=== PATIENT | female | born 1980 | race Hispanic/Latino ===

== ENCOUNTER 2017-07-05 06:59 | Inpatient (IN) | payer BC ==
[~2017-07-05 06:59] MED LIST: ACETAMINOPHEN 500 MG TAB PO PRN; DIPHENHYDRAMINE 50 MG/ML VIAL IV PRN; METOCLOPRAMIDE 10 MG/2mL INJ IV PRN; ONDANSETRON 4 MG/2 ML VIAL IV PRN; OXYTOCIN/LR 20 UNIT/1,000 ML BAG IV SCH; Ringers Lactate 1,000 ML IV PRN; Ringers Lactate 1,000 ML IV SCH
--- OUTSIDE RECORDS SUMMARY | 2017-07-05 07:01 | XMS REPORT ---
:1980 Author Organization eClinicalWorks Care Team Providers Name Role Phone Cristina Restrepo Provider Role Unavailable Allergies No Known Allergies Problems Problem Type Condition Code Onset Dates Condition Status Assessment Elderly multigravida in third O09.523 Active trimester Assessment UTI symptoms R39.9 Active Problem Elderly multigravida in third O09.523 Active trimester Medications Medication Code Code Instructions Start End Date Status Dosage System Date Macrobid [facility] [id number] 100 MG Orally May 18, May 25, Active 1 capsule every 12 hrs 2017 2017 with food Ferralet 90 [facility] [id number] 90-1 MG Orally April 21, Active 1 tablet Once a day 2018 Results No Known Results Summary Purpose eClinicalWorks Submission
--- OUTSIDE RECORDS SUMMARY | 2017-07-05 07:01 | XMS REPORT ---
:1980 Author Organization eClinicalWorks Care Team Providers Name Role Phone Cristina Restrepo Provider Role Unavailable Allergies No Known Allergies Problems Problem Type Condition Code Onset Dates Condition Status Problem Size of fetus inconsistent with O26.843 Active dates in third trimester Problem Elderly multigravida in third O09.523 Active trimester Problem Excessive growth affecting O36.63X0 Active management of in third trimester, single or unspecified fetus Assessment Excessive growth affecting O36.63X0 Active management of in third trimester, single or unspecified fetus Assessment Elderly multigravida in third O09.523 Active trimester Assessment Size of fetus inconsistent with O26.843 Active dates in third trimester Medications Medication Code System Code Instructions Start End Date Status Dosage Date Ferralet 90 [facility] [id number] 90-1 MG Orally April 21, Active 1 tablet Once a day 2017 Results No Known Results Summary Purpose eClinicalWorks Submission
--- OUTSIDE RECORDS SUMMARY | 2017-07-05 07:01 | XMS REPORT ---
:1980 Author Organization eClinicalWorks Care Team Providers Name Role Phone Cristina Restrepo Provider Role Unavailable Allergies No Known Allergies Problems Problem Type Condition Code Onset Dates Condition Status Assessment Elderly multigravida in third O09.523 Active trimester Problem Elderly multigravida in third O09.523 Active trimester Medications Medication Code System Code Instructions Start End Date Status Dosage Date Ferralet 90 [facility] [id number] 90-1 MG Orally April 21, Active 1 tablet Once a day 2018 Results No Known Results Immunizations Vaccine Administration Date TDAP > 7 Years-Adacel April 27, 2017 Summary Purpose eClinicalWorks Submission
--- OUTSIDE RECORDS SUMMARY | 2017-07-05 07:01 | XMS REPORT ---
:1980 Author Organization eClinicalWorks Care Team Providers Name Role Phone Cristina Restrepo Provider Role Unavailable Allergies No Known Allergies Problems Problem Type Condition Code Onset Dates Condition Status Problem Elderly multigravida in third O09.523 Active trimester Assessment Elderly multigravida in third O09.523 Active trimester Problem Size of fetus inconsistent with O26.843 Active dates in third trimester Medications Medication Code System Code Instructions Start End Date Status Dosage Date Ferralet 90 [facility] [id number] 90-1 MG Orally April 21, Active 1 tablet Once a day 2017 Results No Known Results Summary Purpose eClinicalWorks Submission
--- OUTSIDE RECORDS SUMMARY | 2017-07-05 07:01 | XMS REPORT ---
[...] multigravida in third O09.523 Active trimester Assessment Excessive growth affecting O36.63X0 Active management of in third trimester, single or unspecified fetus Medications Medication Code System Code Instructions Start End Date Status Dosage Date Ferralet 90 [facility] [id number] 90-1 MG Orally April 21, Active 1 tablet Once a day 2017 Results No Known Results Summary Purpose eClinicalWorks Submission
--- OUTSIDE RECORDS SUMMARY | 2017-07-05 07:01 | XMS REPORT ---
[...] End Date Status Dosage Date Ferralet 90 [facility] [id number] 90-1 MG Orally April 21, Active 1 tablet Once a day 2017 Results No Known Results Summary Purpose eClinicalWorks Submission
--- OUTSIDE RECORDS SUMMARY | 2017-07-05 07:01 | XMS REPORT ---
:1980 Author Organization eClinicalWorks Care Team Providers Name Role Phone Cristina Restrepo Provider Role Unavailable Allergies No Known Allergies Problems Problem Type Condition Code Onset Dates Condition Status Problem Elderly multigravida in third O09.523 Active trimester Assessment Elderly multigravida in third O09.523 Active trimester Problem Size of fetus inconsistent with O26.843 Active dates in third trimester Assessment Size of fetus inconsistent with O26.843 Active dates in third trimester Medications Medication Code System Code Instructions Start End Date Status Dosage Date Ferralet [address] [facility] [id number] 90-1 MG Orally April 21, Active 1 tablet Once a day 2018 Results No Known Results Summary Purpose eClinicalWorks Submission
[2017-07-05 07:26] VITALS: BMI 38.3
[2017-07-05 07:35] LABS: RPR Titer ND
[2017-07-05 07:41] LABS: Absolute Lymphocytes (CBC) 2.1 K/uL (0.7-4.9); Absolute Monocytes 0.6 K/uL (0.1-1.3); Absolute Neutrophil 9.1 K/uL (1.8-8.0); Basophils % 0.3 % (0-1.3); Hematocrit 35.6 % (36.0-45.0); Lymphocytes % 17.9 % (15.3-44.8); MCH 28.9 pg (27.0-35.0); MCV 89.3 fL (80-100); RBC Red Blood Cell Count 3.99 M/uL (3.86-4.86); Urine Appearance CLOUDY; Urine Bilirubin NEGATIVE (NEG); Urine Blood 1+ (NEG); Urine Color YELLOW; Urine Glucose NEGATIVE (NEG); Urine Protein 1+ (NEG); Urine Urobilinogen 0.2 mg/dL (0.2-1.0); Urine pH 6.5 (5.0-7.0)
[2017-07-05 07:48] LABS: Urine Microscopic Reflex ORDER UMIC
[2017-07-05 07:56] LABS: Urine Bacteria 20-50 /HPF (<20); Urine Culture Reflex Order NOT NEEDED; Urine RBC <5 /HPF (NONE SEEN)
[2017-07-05] MEDS ORDERED: METHYLERGONOVINE 0.2MG/ML AMP IM ONE (09:22)
--- NOTE | 2017-07-05 09:22 | P.HP ---
Certification for Inpatient Patient admitted to: Inpatient With expected LOS: >2 Midnights Patient will require the following post-hospital care: None Practitioner: I am a practitioner with admitting privileges, knowledge of patient current condition, hospital course, and medical plan of care. Services: Services provided to patient in accordance with Admission requirements found in Title 42 Section 412.3 of the Code of Federal Regulations Patient History Date of Service: 07/05/17 Reason for admission: Elective induction of labor History of Present Illness: A 36-year-old at 39 weeks and 2 days who is being admitted for an elective induction of labor. Patient started care with me at approximately 9 weeks of gestation and has has had adequate follow-up. complicated by advanced maternal age, previous history of GDM with negative screening this , grand multiparity, mild anemia, and accelerated growth. Most recent ultrasound placed fetus at 94th percentile for growth at 37 weeks. Largest baby she delivered weighed 7 lb and 15 oz at term. screening was done and panorama results were low risk female fetus. MSAFP was negative. She denies OB complaints on admission. JENNIFER: 07/10/2017. GBS negative. Allergies No Known Allergies Allergy (Unverified 12/09/16 02:29) Home Medications: Pn Vits.w-O Ca #8, Iron,FA [Trifera Ob Tablet] 1 tab PO DAILY 07/05/17 - Past Medical/Surgical History Has patient received pneumonia vaccine in the past: No Diabetic: Yes -: H/o GDM -: ANGY (2007) -: H/o episiotomy - Social History Smoking Status: Never smoker Alcohol use: No CD- Drugs: No Caffeine use: Yes Place of Residence: Home Review of Systems 10-point ROS is otherwise unremarkable Physical Examination - Vital Signs Temperature: 97.5 F Blood Pressure: 142/77 Pulse: 71 Respirations: 18 - Physical Exam General: Alert, In no apparent distress, Oriented x3 HEENT: Atraumatic, Normocephalic Respiratory: Other (Normal effort) Cardiovascular: Normal pulses Musculoskeletal: Swelling (Trace pedal edema) Integumentary: No rashes, No breakdown Neurological: Normal speech, Normal strength at 5/5 x4 extr - Studies Laboratory Data (last 24 hrs) 07/05/17 07:00: WBC Cancelled, Hgb Cancelled, Hct Cancelled, Plt Count Cancelled 07/05/17 07:00: WBC 12.0 H, Hgb 11.5 L, Hct 35.6 L, Plt Count 225 Female Exam - Female Pelvic Cervix: Dilation (3), Effacement (50), station (-1), Other (soft, anterior ) Uterus: Non-tender, Soft, Gravid - Obstetrics heart rate tracing: Category 1 (periods of minimal variability noted) Contractions: Frequency (q 3-6 min) Amniotic membrane: Intact Assessment and Plan - Problems (Diagnosis) (1) Elective induction of labor planned Current Visit: Yes Status: Acute Plan: Admitted for induction and Pitocin has been started. Will keep on continuous monitoring, noted periods of minimal variability. Patient has been repositioned , IV fluid bolus is going, O2 via non Re-breather started. Will continue to monitor. If no improvement, will d/c Pitocin and perform AROM. (2) LGA (large for gestational age) fetus affecting mother, antepartum Current Visit: Yes Status: Acute Plan: Recent ultrasound done confirms accelerated growth above the 90th percentile. Possible risk of the labor/shoulder dystocia reviewed. Will have the utero-tonics available at bedside due to associated risk of possible hemorrhage. Delivery nurse aware plan Qualifiers: Fetus number: single or unspecified fetus Qualified Code(s): O36.60X0 - Maternal care for excessive growth, unspecified trimester, not applicable or unspecified - Advance Directives Does patient have a Living Will: No Does patient have a Durable POA for Healthcare: No
[2017-07-05] MEDS ORDERED: miSOPROStol 100 MCG TAB PR ONE (09:25)
[2017-07-05] MEDS ORDERED: FENTANYL/BUPIVACAINE/NS/PF 200 MCG/100 ML BAG EP PRN (11:11)
[2017-07-05] MEDS ORDERED: BUPIVACAINE 0.25% PF 10 ML VIAL IV ONE (11:14)
[2017-07-05] MEDS ORDERED: FENTANYL CITR 100 MCG/2 ML IV ONE (11:15)
[2017-07-05] MEDS ORDERED: BUPIVACAINE 0.25% PF 10 ML VIAL ONE (12:10)
--- NOTE | 2017-07-05 12:18 | P.PN ---
Date of Service: 07/05/17 Pt is doing well, but has requested epidural due to increased pain with contractions. Anesthesia aware. Tracing shows periods of minimal variability. Discussed AROM, patient agreed. Procedure done without incident. Copious amount of clear fluid noted. : 3-4/50/-2, soft, anterior. VSS Fetus responds to scalp stimulation. Tracing with moderate variability now, spontaneous accelerations noted. Decreased pitocin to half. Will d/c if no further improvement in variability.
[2017-07-05] MEDS ORDERED: ROPIVACAINE HCL 100 ML IV ONE ×2 (12:36→20:40)
[2017-07-05] MEDS ORDERED: LIDOCAINE 2% INJ, 20 mL 0 ML ONE (20:09)
[2017-07-05 22:36] LABS: RPR (Rapid Plasma Reagin) NON-REACT (NON-REACT)
[2017-07-05] MEDS ORDERED: Ringers Lactate 1,000 ML IV PRN (22:38)
[2017-07-05] MEDS ORDERED: NA CIT/CITRIC AC 30 ML ORAL UDC PO ONE ×2 (22:38→22:43)
[2017-07-05] MEDS ORDERED: CEFAZOLIN 2 GM in NA CHLORIDE 0.9% 100 ML IVPB ONE (22:38)
[2017-07-05] MEDS ORDERED: METOCLOPRAMIDE 10 MG/2mL INJ ONE (22:40)
[2017-07-05] MEDS ORDERED: CEFAZOLIN/SWI 2gm 2 GM/20 ML SYR ONE (22:41)
--- NOTE | 2017-07-05 22:47 | P.PN ---
Date of Service: 07/05/17 RN called to report patient has been 9-10 for almost 2 hours. FHR is cat II with early decels noted. Mild range BPs likely secondary to pain. She is now complete but station is high and ballotable. She is c/o pain as her epidural hasn't been providing relief in the last hour as well. She has been re -dosed without adequate response. Discussed trial push but patient initially refused due to pain. After a few contractions, she agreed. There was no descent noted with attempt. She is requesting a CD due to pain. Based on duration of rupture, no further descent, and no response to trial push, will proceed with 1' LTCS. Caput noted. I suspect CPD. OR team notified. Orders placed. Proceed to OR when ready.
[2017-07-05] MEDS ORDERED: METOCLOPRAMIDE 10 MG/2mL INJ IV SCH (23:00)
[2017-07-05] MEDS ORDERED: CEFAZOLIN 2 GM in NA CHLORIDE 0.9% 100 ML IVPB SCH (23:00)
[2017-07-05] MEDS ORDERED: MORPHINE SULFATE/PF 1 MG/ML (10 ML AMP) ONE (23:26)
[2017-07-06] MEDS ORDERED: OXYTOCIN 10 UNIT/ML ML IV ONE
[2017-07-06] MEDS ORDERED: FENTANYL CITR 250 MCG/5 ML ONE (00:43)
[2017-07-06] MEDS ORDERED: HYDROMORPHONE HCL 1 MG/ML INJ IV PRN (00:54)
[2017-07-06] MEDS ORDERED: MORPHINE 4 MG/ML SYR IV PRN (00:54)
--- NOTE | 2017-07-06 00:58 | P.OP ---
It Program Auditor: Hector Griffiths Preoperative diagnosis: Failure to descend, suspected macrosomia Postoperative diagnosis: Same Primary procedure: 1'LTCS via Pfannenstiel Anesthesia: Spinal Estimated blood loss: 600 cc Findings: See operative report Operative Technique: Intra-operative findings: The uterus was normal. Both fallopian tubes and ovaries were found to be normal.The was in an LANE position. The infant was female and weighed 9 # 7 oz. The 's Apgars were 5 at 1 min. and 8 at 5 min.. Procedure described: The patient was taken to the operating room within IV running with antibiotics infusing where she was placed in a dorsal supine position with a slight leftward tilt. She had clipping of the suprapubic hair and was prepped and draped in the normal sterile fashion from the xiphoid sternum to the midthighs including the vulva and vagina. A Rodarte catheter was placed in the bladder and connected to dependent drainage. PAS stockings were in place and activated. A timeout was done per our usual protocol. A Pfannenstielincision was made about 1 cm above the symphysis pubis and carried out through the subcutaneous tissue with electrocautery. The fascia was nicked in the midline and the fascial incision was extended laterally with Howell scissors. The superior aspect of the fascial incision was tented up and bluntly and sharply dissected off the rectus muscles below. In a similar fashion , the inferior aspect of the fascial incision was tented up and bluntly and sharply dissected off the rectus muscles below. The rectus muscles were in the midline, the peritoneum was identified and entered sharply between two hemostats using Metzenbaum scissors. The peritoneal incision was extended superiorly and inferiorly with good visualization of intraperitoneal organs and the bladder. The bladder blade was placed, the bladder flap was developed and the bladder blade was replaced. A transverse curvilinear incision was made in the lower uterine segment. The incision was extended laterally with blunt digital dissection. The surgeon's hand was placed into the incision, the 's head was delivered, followed by the torso. The mouth and nose were suctioned with and suction bulb. The umbilical cord was clamped and cut and the infant was handed off to the waiting care attendants. Cord blood was obtained. The uterus was massaged and the placenta was expressed. The uterus was exteriorized and cleared of all clots and debris. The bladder blade was replaced, the edges of the uterine incision where grasped with ring forceps and the incision was closed using 0 Monocryl suture in a running un- locking fashion and closed in 2 layers. The incision was inspected and found to be hemostatic. The bladder peritoneum was then closed with 3-0 Vicryl suture in a running fashion. The pelvic peritoneum was not irrigated, but was cleared of all clots and debris. The uterus was replaced into the peritoneal cavity. The medial edges of the rectus muscles were plicated in the midline using 2-0 Vicryl suture in an interrupted fashion. The rectus muscles were inspected and found to be hemostatic. The fascia was then closed with 0-Vicryl suture in a running fashion. The subcutaneous tissues were copiously lavaged with warm normal saline. Hemostasis was noted. The skin was closed with a subcuticular stitch of 3-0 Monocryl suture. The incision was cleansed and dermabond was applied. Sponge, needle, instrument counts were correct x 2. There were no complications and patient tolerated the procedure well. She was taken to recovery in good condition and allowed to lucero with infant Complications: None Transferred to: Recovery Room Condition: Good
[2017-07-06] MEDS: KETOROLAC 30 MG/ML INJ IV SCH ×4 (01:15→19:20)
[2017-07-06] MEDS: METOCLOPRAMIDE 10 MG/2mL INJ IV SCH ×4 (01:15→19:20)
[2017-07-06] MEDS ORDERED: NA CHLORIDE 0.9% 1,000 ML IV SCH (02:00)
[2017-07-06 11:17] LABS: Absolute Lymphocytes (CBC) 1.5 K/uL (0.7-4.9); Absolute Monocytes 0.7 K/uL (0.1-1.3); Absolute Neutrophil 15.3 K/uL (1.8-8.0); Basophils % 0.1 % (0-1.3); Hematocrit 33.1 % (36.0-45.0); Lymphocytes % 8.6 % (15.3-44.8); MCH 28.6 pg (27.0-35.0); MCV 89.4 fL (80-100); MPV 9.6 fL (7.6-11.3)
[2017-07-06 12:13] LABS: Blood Morphology Comment NOT SEEN (NOT SEEN); Platelet Estimate ADEQ
[2017-07-06] MEDS ORDERED: NA CHLORIDE 0.9% 1,000 ML ONE ×2 (12:38→17:09)
[2017-07-06] MEDS ORDERED: DIPHENHYDRAMINE 25 MG TAB/CAP PO PRN (20:33)
[2017-07-07] MEDS: HYDROCODONE/APAP 5/325 MG TAB PO PRN ×4 (01:30→20:10)
[2017-07-07] MEDS: IBUPROFEN 400 MG TAB PO PRN ×3 (08:24→23:18)
--- NOTE | 2017-07-07 08:52 | P.DS ---
Admission Date: 07/05/17 Discharge Date: 07/08/17 Disposition: ROUTINE DISCHARGE Comment: Rounding with d/c summary Discharge Condition: GOOD Reason for Admission: Elective induction of labor - Problems (1) delivery delivered Onset Date: 07/06/17 Status: Acute Brief History of Present Illness: A 36-year-old at 39 weeks and 2 days who is being admitted for an elective induction of labor. Patient started care with me at approximately 9 weeks of gestation and has has had adequate follow-up. complicated by advanced maternal age, previous history of GDM with negative screening this , grand multiparity, mild anemia, and accelerated growth. Most recent ultrasound placed fetus at 94th percentile for growth at 37 weeks. Largest baby she delivered weighed 7 lb and 15 oz at term. screening was done and panorama results were low risk female fetus. MSAFP was negative. She denies OB complaints on admission. JENNIFER: 07/10/2017. GBS negative. Hospital Course: Pt was admitted for IOL which was done with pitocin and AROM. She made slow progress difficulty with pain control with epidural. She eventually dilated to 10 cm but station did not descend significantly. She was allowed to labor down more, and tried to push but was in pain and there was not much progress. Discussed concern for CPD and decision was made for delivery. Benefits /risks discussed. was done without incident and postop course was uncomplicated. Vital Signs/Physical Exam: Temp Pulse Resp BP Pulse Ox 98.9 F 81 18 122/59 L 07/07/17 07:25 07/07/17 07:25 07/07/17 07:25 07/07/17 07:25 General: Alert, In no apparent distress, Oriented x3 Respiratory: Clear to auscultation bilaterally Cardiovascular: Regular rate/rhythm, Normal S1 S2 Gastrointestinal: Normal bowel sounds, Soft and benign, Non-distended, No rebound, No guarding, Other (Incision: C/D/I, subQ closure with dermabond) Musculoskeletal: No swelling, No erythema, No tenderness Integumentary: No rashes, No breakdown Neurological: Normal speech, Normal strength at 5/5 x4 extr Laboratory Data at Discharge: WBC 17.5 K/uL (4.3-10.9) H D 07/06/17 10:47 Hgb 10.6 g/dL (12.0-15.0) L 07/06/17 10:47 Hct 33.1 % (36.0-45.0) L 07/06/17 10:47 Plt Count 193 K/uL (152-406) 07/06/17 10:47 Home Medications: Pn Vits.w-O Ca #8, Iron,FA [Trifera Ob Tablet] 1 tab PO DAILY 07/05/17 Hydrocodone 5/APAP 325 [[place] 5/325*] 1 tab PO Q4H PRN #24 tab 07/07/17 New Medications: Hydrocodone 5/APAP 325 [[place] 5/325*] 1 tab PO Q4H PRN #24 tab PRN Reason: Pain Moderate To Severe Patient Discharge Instructions: Follow up with physician in one week for incision check. Notify physician of fever or other sings of infection or heavy vaginal bleeding. Diet: Regular Activity: No lifting more than 10 lbs Followup: Cristina Restrepo MD [Family Provider] - (Follow up care with Dr. Restrepo next week.)
[2017-07-07] MEDS ORDERED: Tdap (Diph,Pertuss(Acell),Tet Vac) 0.5 ML SYR IMVAC ONE (10:32)
[2017-07-07] MEDS ORDERED: DOCUSATE NA/SENNA CONC 1 TAB PO PRN (12:32)
[2017-07-07] MEDS ORDERED: BISACODYL 10 MG RECTAL SUPP RECT PRN (12:32)
[2017-07-07 13:31] LABS: HBsAG Nonreactive (Nonreactive)
[2017-07-08] MEDS: HYDROCODONE/APAP 5/325 MG TAB PO PRN (05:20)
[2017-07-08 08:29] VITALS: BP 148/80; TEMP 97.6
--- NOTE | 2017-07-08 09:42 | P.PN ---
Subjective Date of Service: 07/07/17 Chief Complaint: Elective induction of labor Subjective: Tolerating diet, Ambulating, Improving (Denies N/V in the last day or so. She is much improved with anti-emetics.), Doing well Review of Systems 10-point ROS is otherwise unremarkable Physical Examination - Vital Signs Temperature: 97.6 F Blood Pressure: 148/80 Pulse: 65 Respirations: 18 - Physical Exam General: Alert, In no apparent distress, Oriented x3 Respiratory: Clear to auscultation bilaterally, Normal air movement Cardiovascular: Regular rate/rhythm, Normal S1 S2 Gastrointestinal: Hypoactive, Soft and benign, Non-distended, Other (Incision: C /D/I) Musculoskeletal: No swelling Integumentary: No rashes, No breakdown Neurological: Normal speech, Normal strength at 5/5 x4 extr Assessment And Plan - Current Problems (Diagnosis) (1) Elective induction of labor planned Onset Date: 07/06/17 Current Visit: Yes Status: Resolved (2) LGA (large for gestational age) fetus affecting mother, antepartum Onset Date: 07/06/17 Current Visit: Yes Status: Resolved Qualifiers: Fetus number: single or unspecified fetus Qualified Code(s): O36.60X0 - Maternal care for excessive growth, unspecified trimester, not applicable or unspecified (3) delivery delivered Onset Date: 07/06/17 Current Visit: Yes Status: Acute Plan: Pt is doing well on POD #1. She is tolerating intake slowly as nausea has improved. Meds transitioned to PO and may d/c IVF. H/H appropriate. Ambulation encouraged. Routine postop care planned.
== END 2017-07-08 09:30 | disposition home or self-care (01) | DRG 766 ==
LOC: 2ND-WC 06:59
PROVIDERS: ADMIT Obstetrics & Gynecology; ATTEND Obstetrics & Gynecology
PROC: 10907ZC Drainage of Amniotic Fluid, Therapeutic from Products of Conception, Via Natural or Artificial Opening (ICD-10-PCS; 2017-07-06)
PROC: 3E033VJ Introduction of Other Hormone into Peripheral Vein, Percutaneous Approach (ICD-10-PCS; 2017-07-06)
PROC: 10D00Z1 Extraction of Products of Conception, Low, Open Approach (ICD-10-PCS; principal; 2017-07-06 22:34)
DX: O36.63X0 Maternal care for excessive fetal growth, third trimester, not applicable or unspecified (principal); O64.8XX0 Obstructed labor due to other malposition and malpresentation, not applicable or unspecified; Z3A.39 39 weeks gestation of pregnancy; Z37.0 Single live birth
CPT/HCPCS: 36415; 81003; 81015; 85025; 86592; 86850; 86900; 86901; 87340; 88305; 88307; 90715; J0690; J1170; J2210; J2405; J2590; J2765; J2795; J3010; J7030

== ENCOUNTER 2017-07-27 21:04 | Emergency (ER) | payer BC ==
--- OUTSIDE RECORDS SUMMARY | 2017-07-27 21:06 | XMS REPORT ---
[...] Date Status Dosage Date Ferralet [address] [facility] [id number] 90-1 MG Orally April 21, Active 1 tablet Once a day 2018 Results No Known Results Immunizations Vaccine Administration Date TDAP > 7 Years-Adacel April 27, 2017 Summary Purpose eClinicalWorks Submission
--- OUTSIDE RECORDS SUMMARY | 2017-07-27 21:06 | XMS REPORT ---
[...] End Date Status Dosage System Date Macrobid [facility] [id number] 100 MG Orally May 18, May 25, Active 1 capsule every 12 hrs 2017 2017 with food Ferralet 90 [facility] [id number] 90-1 MG Orally April 21, Active 1 tablet Once a day 2018 Results No Known Results Summary Purpose eClinicalWorks Submission
--- OUTSIDE RECORDS SUMMARY | 2017-07-27 21:06 | XMS REPORT ---
[...] End Date Status Dosage Date Ferralet 90 [facility] [id number] 90-1 MG Orally April 21, Active 1 tablet Once a day 2018 Results No Known Results Summary Purpose eClinicalWorks Submission
--- OUTSIDE RECORDS SUMMARY | 2017-07-27 21:07 | XMS REPORT ---
:1980 Author Organization eClinicalWorks Care Team Providers Name Role Phone Cristina Restrepo Provider Role Unavailable Allergies, Adverse Reactions, Alerts Substance Reaction Event Type N.K.D.A. Info Not Available Non Drug Allergy Problems Problem Type Condition Code Onset Dates Condition Status Problem Excessive growth affecting O36.63X0 Active management of in third trimester, single or unspecified fetus Problem Size of fetus inconsistent with O26.843 Active dates in third trimester Problem H/O section Z98.891 Active Assessment Postop check Z09 Active Problem Elderly multigravida in third O09.523 Active trimester Assessment H/O section Z98.891 Active Medications Medication Code Code Instructions Start End Date Status Dosage System Date Ferralet 90 [facility] [id number] 90-1 MG Orally April 21, Active 1 tablet Once a day 2017 IBUPROFEN NDC 0 Active not defined Results No Known Results Summary Purpose eClinicalWorks Submission
--- OUTSIDE RECORDS SUMMARY | 2017-07-27 21:07 | XMS REPORT ---
[...] Date Status Dosage Date Ferralet 90 [facility] [id number] 90-1 MG Orally April 21, Active 1 tablet Once a day 2017 Results No Known Results Summary Purpose eClinicalWorks Submission
--- OUTSIDE RECORDS SUMMARY | 2017-07-27 21:07 | XMS REPORT ---
[...] 90 [facility] [id number] 90-1 MG Orally April 21, Active 1 tablet Once a day 2017 Results No Known Results Summary Purpose eClinicalWorks Submission
--- OUTSIDE RECORDS SUMMARY | 2017-07-27 21:07 | XMS REPORT ---
[...] End Date Status Dosage Date Ferralet [address] [facility] [id number] 90-1 MG Orally April 21, Active 1 tablet Once a day 2017 Results No Known Results Summary Purpose eClinicalWorks Submission
--- OUTSIDE RECORDS SUMMARY | 2017-07-27 21:07 | XMS REPORT ---
[...] Date Status Dosage Date Ferralet 90 [facility] [id number] 90-1 MG Orally April 21, Active 1 tablet Once a day 2017 Results No Known Results Summary Purpose eClinicalWorks Submission
--- NOTE | 2017-07-27 22:40 | EDPHYS ---
Physician Documentation [facility] Name: Bran Garner Age: 36 yrs Sex: Female : 1980 Arrival Date: 07/27/2017 Time: 21:05 Bed 25 Private MD: ED Physician Talat Toledo HPI: 07/27 22:35 This 36 yrs old Female presents to ER via Ambulatory with complaints of Rectal pm1 Pain. 22:35 The patient presents to the emergency department with pain in the rectal area. Onset: pm1 The symptoms/episode began/occurred yesterday. Context: the patient has a known history of hemorrhoids. Modifying factors: The symptoms are alleviated by nothing, The symptoms are aggravated by bowel movement, sitting position. Associate signs and symptoms: Pertinent negatives: abdominal pain, constipation, diarrhea, dysuria, fever, lower GI bleeding, vomiting. The patient has experienced similar episodes in the past, several times. The patient has not recently seen a physician. 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 - Social history:: Smoking status: Patient/guardian denies using tobacco. - Ebola Screening: : Patient denies travel to an Ebola-affected area in the 21 days before illness onset. ROS: 22:35 Constitutional: Negative for fever, chills, and weight loss, Eyes: Negative for injury, pm1 pain, redness, and discharge, ENT: Negative for injury, pain, and discharge, Neck: Negative for injury, pain, and swelling, Cardiovascular: Negative for chest pain, palpitations, and edema, Respiratory: Negative for shortness of breath, cough, wheezing, and pleuritic chest pain. 22:35 Back: Negative for injury and pain, : Negative for injury, bleeding, discharge, and swelling, MS/Extremity: Negative for injury and deformity, Skin: Negative for injury, rash, and discoloration, Neuro: Negative for headache, weakness, numbness, tingling, and seizure. 22:35 Abdomen/GI: Negative for abdominal pain, nausea, vomiting, and diarrhea, diarrhea, black/tarry stool, rectal pain, rectal bleeding. Exam: 22:35 Constitutional: This is a well developed, well nourished patient who is awake, alert, pm1 and in no acute distress. Head/Face: Normocephalic, atraumatic. Neck: Trachea midline, no thyromegaly or masses palpated, and no cervical lymphadenopathy. Supple, full range of motion without nuchal rigidity, or vertebral point tenderness. No Meningismus. Chest/axilla: Normal chest wall appearance and motion. Nontender with no deformity. No lesions are appreciated. Cardiovascular: Regular rate and rhythm with a normal S1 and S2. No gallops, murmurs, or rubs. Normal PMI, no JVD. No pulse deficits. Respiratory: Lungs have equal breath sounds bilaterally, clear to auscultation and percussion. No rales, rhonchi or wheezes noted. No increased work of breathing, no retractions or nasal flaring. 22:35 Back: No spinal tenderness. No costovertebral tenderness. Full range of motion. Skin: Warm, dry with normal turgor. Normal color with no rashes, no lesions, and no evidence of cellulitis. MS/ Extremity: Pulses equal, no cyanosis. Neurovascular intact. Full, normal range of motion. 22:35 Abdomen/GI: Inspection: abdomen appears normal, Bowel sounds: normal, Palpation: abdomen is soft and non-tender, Rectal exam: hemorrhoid(s), external, without bleeding, without inflammation, without thrombosis, without pain, [facility] tech. 22:35 Neuro: Orientation: is normal, Motor: is normal, moves all fours. Vital Signs: 21:10 BP 119 / 77; Pulse 76; Resp 18; Temp 98.1(TE); Pulse Ox 97% on R/A; Weight 73.[address] [facility] (R); Height 4 ft. 11 in. (149.86 cm); Pain 6/10; 22:55 BP 109 / 73; Pulse 71; Resp 17; Pulse Ox 100% on R/A; Pain 6/10; ed1 21:10 Body Mass Index 32.72 (73.48 kg, 149.86 cm) [facility] MDM: 21:[address] [facility] 22:38 Data reviewed: vital signs. Data interpreted: Pulse oximetry: on room air is 97 %. pm1 Interpretation: normal. Counseling: I had a detailed discussion with the patient and/or guardian regarding: the historical points, exam findings, and any diagnostic results supporting the discharge/admit diagnosis, the need for outpatient follow up, a colorectal specialist, a general surgeon, to return to the emergency department if symptoms worsen or persist or if there are any questions or concerns that arise at home. Administered Medications: 22:54 Drug: TORadol 60 mg Route: IM; Site: left gluteus; ed1 22:56 Follow up: Response: Medication administered at discharge. ed1 Disposition: 07/28 15:37 Co-signature as Attending Physician, Talat Toledo MD I agree with the assessment and clifford plan of care. Disposition: 07/27/17 22:40 Discharged to Home. Impression: Hemorrhoids. - Condition is Stable. - Discharge Instructions: Hemorrhoids. - Prescriptions for Anusol- HC 2.5 % Rectal Cream - Apply to affected area 1 application by TOPICAL route every 8 hours As needed; 30 gram. Colace 100 mg Oral Tablet - take 1 tablet by ORAL route every 12 hours; 14 tablet. Tylenol- Codeine #3 300-30 mg Oral Tablet - take 2 tablets by ORAL route every 6 hours As needed; 20 tablet. - Medication Reconciliation Form, Thank You Letter, Prescription Opioid Use form. - Follow up: Emergency Department; When: As needed; Reason: Worsening of condition. Follow up: Private Physician; When: 2 - 3 days; Reason: Recheck today's complaints, Continuance of care, Re-evaluation by your physician. Follow up: Barrington Oneill MD; When: 2 - 3 days; Reason: Recheck today's complaints, Continuance of care, Re-evaluation by your physician. - Problem is new. - Symptoms have improved. Signatures: Urmila Serna RN RN aj1 Talat Toledo MD MD cha Riggs, Erika, BURGLAR ALARM INSPECTOR BURGLAR ALARM INSPECTOR ed1 Raghavendra Ocasio NP SET OFF PRESS OPERATOR pm1 Corrections: (The following items were deleted from the chart) 07/27 22:41 22:38 Counseling: I had a detailed discussion with the patient and/or guardian pm1 regarding: the historical points, exam findings, and any diagnostic results supporting the discharge/admit diagnosis, the need for outpatient follow up, a colorectal specialist, a general surgeon, to return to the emergency department if symptoms worsen or persist or if there are any questions or concerns that arise at home, pm1 22:41 22:40 07/27/2017 22:40 Discharged to Home. Impression: Hemorrhoids. Condition is pm1 Stable. Forms are Medication Reconciliation Form, Thank You Letter, Antibiotic Education, Prescription Opioid Use. Follow up: Emergency Department; When: As needed; Reason: Worsening of condition. Follow up: Private Physician; When: 2 - 3 days; Reason: Recheck today's complaints, Continuance of care, Re-evaluation by your physician. Problem is new. Symptoms have improved. pm1 22:57 22:41 07/27/2017 22:40 Discharged to Home. Impression: Hemorrhoids. Condition is ed1 Stable. Discharge Instructions: Hemorrhoids. Prescriptions for Anusol-HC 2.5 % Rectal Cream - Apply to affected area 1 application by TOPICAL route every 8 hours As needed; 30 gram, Colace 100 mg Oral Tablet - take 1 tablet by ORAL route every 12 hours; 14 tablet. and Forms are Medication Reconciliation Form, Thank You Letter, Prescription Opioid Use. Follow up: Emergency Department; When: As needed; Reason: Worsening of condition. Follow up: Private Physician; When: 2 - 3 days; Reason: Recheck today's complaints, Continuance of care, Re-evaluation by your physician. Follow up: Barrington Oneill; When: 2 - 3 days; Reason: Recheck today's complaints, Continuance of care, Re-evaluation by your physician. Problem is new. Symptoms have improved. pm1
--- NOTE | 2017-07-27 22:40 | ER ---
Nurse's Notes [facility] Name: Bran Garner Age: 36 yrs Sex: Female : 1980 Arrival Date: 07/27/2017 Time: 21:05 Bed 25 Private MD: Diagnosis: Hemorrhoids Presentation: 07/27 21:08 Presenting complaint: Patient states: For the past 3 days she has been having pain in aj1 her rectum, states the pain has been so bad she can not sit. States she has hemorrhoids, she went to [place] and got some cream for it, but is is not helping. Transition of care: patient was not received from another setting of care. Onset of symptoms was July 24, 2017. Risk Assessment: Do you want to hurt yourself or someone else? Patient reports no desire to harm self or others. Initial Sepsis Screen: Does the patient meet any 2 criteria? No. Patient's initial sepsis screen is negative. Does the patient have a suspected source of infection? No. Patient's initial sepsis screen is negative. Care prior to arrival: None. 21:08 Method Of Arrival: Ambulatory aj1 21:08 Acuity: JUSTEN 4 aj1 Triage Assessment: 21:10 General: Appears in no apparent distress. uncomfortable, Behavior is calm, cooperative, aj1 appropriate for age. Pain: Complains of pain in buttocks Pain does not radiate. Pain currently is 6 out of 10 on a pain scale. Quality of pain is described as burning, pressure, Pain began 2-3 days ago. Is continuous. EENT: No deficits noted. Neuro: Level of Consciousness is awake, alert, obeys commands, Oriented to person, place, time, situation, Speech is normal, Facial symmetry appears normal. Cardiovascular: Patient's skin is warm and dry. Respiratory: Airway is patent Respiratory effort is even, unlabored, Respiratory pattern is regular, symmetrical. GI: No signs and/or symptoms were reported involving the gastrointestinal system. : No signs and/or symptoms were reported regarding the genitourinary system. Derm: No signs and/or symptoms reported regarding the dermatologic system. Skin is pink, warm \T\ dry. normal. Musculoskeletal: Circulation, motion, and sensation intact. Range of motion: intact in all extremities, Reports rectal pain. 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 - Social history:: Smoking status: Patient/guardian denies using tobacco. - Ebola Screening: : Patient denies travel to an Ebola-affected area in the 21 days before illness onset. Screenin:42 Abuse screen: Denies threats or abuse. Denies injuries from another. Nutritional ed1 screening: No deficits noted. Tuberculosis screening: No symptoms or risk factors identified. Fall Risk None identified. Assessment: 21:42 General: Appears in no apparent distress. Behavior is calm, cooperative. Pain: ed1 Complains of pain in anus Pain does not radiate. Pain currently is 6 out of 10 on a pain scale. Quality of pain is described as throbbing, Pain began 2-3 days ago. Is continuous. Neuro: Level of Consciousness is awake, alert, obeys commands, Oriented to person, place, time, situation. Cardiovascular: Denies chest pain, Heart tones S1 S2 present. Respiratory: Airway is patent Respiratory effort is even, unlabored, Respiratory pattern is regular, symmetrical, Breath sounds are clear bilaterally. GI: Reports hemorrhoids, Patient currently denies diarrhea, nausea, vomiting. : No signs and/or symptoms were reported regarding the genitourinary system. EENT: No signs and/or symptoms were reported regarding the EENT system. Derm: Skin is pink, warm \T\ dry. Musculoskeletal: Circulation, motion, and sensation intact. Range of motion: intact in all extremities. 21:45 Reassessment: No changes from previously documented assessment. I agree with this bb assessment. 22:55 Reassessment: Patient appears in no apparent distress at this time. No changes from ed1 previously documented assessment. Patient and/or family updated on plan of care and expected duration. Pain level reassessed. Patient is alert, oriented x 3, equal unlabored respirations, skin warm/dry/pink. Patient states symptoms have not improved. Vital Signs: 21:10 BP 119 / 77; Pulse 76; Resp 18; Temp 98.1(TE); Pulse Ox 97% on R/A; Weight 73.48 kg aj1 (R); Height 4 ft. 11 in. (149.86 cm); Pain 6/10; 22:55 BP 109 / 73; Pulse 71; Resp 17; Pulse Ox 100% on R/A; Pain 6/10; ed1 21:10 Body Mass Index 32.72 (73.48 kg, 149.86 cm) aj1 ED Course: 21:05 Patient arrived in ED. es 21:10 Triage completed. aj1 21:10 Arm band placed on Patient placed in waiting room, Patient notified of wait time. aj1 21:42 Linda Faith LVN is Primary Nurse. ed1 21:42 Patient has correct armband on for positive identification. Placed in gown. Bed in low ed1 position. Call light in reach. Adult w/ patient. 21:52 Raghavendra Ocasio NP is PHCP. pm1 21:52 Talat Toledo MD is Attending Physician. pm1 22:41 Barrington Oneill MD is Referral Physician. pm1 22:55 No provider procedures requiring assistance completed. Patient did not have IV access ed1 during this emergency room visit. Administered Medications: 22:54 Drug: TORadol 60 mg Route: IM; Site: left gluteus; ed1 22:56 Follow up: Response: Medication administered at discharge. ed1 Outcome: 22:40 Discharge ordered by . pm1 22:55 Discharged to home ambulatory. ed1 22:55 Condition: good 22:55 Discharge instructions given to patient, Instructed on discharge instructions, follow up and referral plans. medication usage, Demonstrated understanding of instructions, follow-up care, medications, Prescriptions given X 3. 22:57 Patient left the ED. ed1 Signatures: Urmila Serna, RN RN aj1 Bridgette Mendoza Brenda, RN RN Linda Faith LVN LVN ed1 Raghavendra Ocasio NP BUSINESS TRANSFORMATION ANALYST pm1
[2017-07-27] MEDS ORDERED: KETOROLAC 30 MG/ML INJ ONE (22:48)
[2017-07-27 23:34] VITALS: TEMP 98.1
[2017-07-27 23:35] VITALS: BP 109/73; O2SAT 100
== END 2017-07-27 22:57 | disposition home or self-care (01) ==
LOC: ER 21:04
DX: K64.4 Residual hemorrhoidal skin tags (principal)
CPT/HCPCS: 96372; 99283

== ENCOUNTER 2018-01-08 00:10 | Emergency (ER) | payer BC ==
--- OUTSIDE RECORDS SUMMARY | 2018-01-08 00:12 | XMS REPORT ---
[...] End Date Status Dosage Date Ferralet [facility] 79055630623 90-1 MG Orally April 21, Active 1 tablet Once a day 2018 Results No Known Results Summary Purpose eClinicalWorks Submission
--- OUTSIDE RECORDS SUMMARY | 2018-01-08 00:12 | XMS REPORT ---
[...] Date Status Dosage System Date Macrobid [facility] [id number] 100 MG Orally May 18, May 25, Active 1 capsule every 12 hrs 2017 2017 with food Ferralet 90 [facility] [id number] 90-1 MG Orally April 21, Active 1 tablet Once a day 2018 Results No Known Results Summary Purpose eClinicalWorks Submission
--- OUTSIDE RECORDS SUMMARY | 2018-01-08 00:12 | XMS REPORT ---
[...] Status Dosage System Date Ferralet 90 NDC [id number] 90-1 MG Orally April 21, Active 1 tablet Once a day 2017 IBUPROFEN NDC 0 Active not defined Results No Known Results Summary Purpose eClinicalWorks Submission
--- OUTSIDE RECORDS SUMMARY | 2018-01-08 00:12 | XMS REPORT ---
[...] End Date Status Dosage Date Ferralet 90 [facility][NOTE 3] [id number] 90-1 MG Orally April 21, Active 1 tablet Once a day 2017 Results No Known Results Summary Purpose eClinicalWorks Submission
--- OUTSIDE RECORDS SUMMARY | 2018-01-08 00:12 | XMS REPORT ---
[...] End Date Status Dosage Date Ferralet 90 [facility] [id number] 90-1 MG Orally April 21, Active 1 tablet Once a day 2018 Results No Known Results Immunizations Vaccine Administration Date TDAP > 7 Years-Adacel April 27, 2017 Summary Purpose eClinicalWorks Submission
--- OUTSIDE RECORDS SUMMARY | 2018-01-08 00:12 | XMS REPORT ---
:1980 Author Organization eClinicalWorks Care Team Providers Name Role Phone Cristina Restrepo Provider Role Unavailable Allergies, Adverse Reactions, Alerts Substance Reaction Event Type N.K.D.A. 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 Problem Encounter for routine Z39.2 Active follow-up Assessment Encounter for routine Z39.2 Active follow-up Problem H/O section Z98.891 Active Problem Excessive growth affecting O36.63X0 Active management of in third trimester, single or unspecified fetus Medications Medication Code Code Instructions Start End Status Dosage System Date Date Ferralet 90 [facility] [id number] 90-1 MG Orally April 21, Active 1 tablet Once a day 2017 IBUPROFEN NDC 0 Active not defined Loestrin 1/20 [facility] [id number] 1-20 MG-MCG August 17, Active 1 tablet (21) Orally Once a 2018 day Results Name Result Date Reference Range Unit Abnormality Flag TEST URINE ----RESULTS NEG 20170817 URINALYSIS AUTO W/O SCOPE (30303) ----PROTEIN NEG 20170817 ----pH 6.0 20170817 ----NIT NEG 20170817 ----CRISPIN TRACE 20170817 ----URO 0.2 20170817 ----SPECIFIC GRAVITY 1.015 20170817 ----BLO TRACE-INTACT 20170817 ----BILIRUBIN NEG 20170817 ----KETONES NEG 20170817 ----GLUCOSE NEG 20170817 Summary Purpose eClinicalWorks Submission
--- OUTSIDE RECORDS SUMMARY | 2018-01-08 00:12 | XMS REPORT ---
[...] Date Ferralet [address] [facility] [id number] 90-1 MG Orally April 21, Active 1 tablet Once a day 2017 Results No Known Results Summary Purpose eClinicalWorks Submission
--- OUTSIDE RECORDS SUMMARY | 2018-01-08 00:12 | XMS REPORT ---
[...] Dosage Date Ferralet 90 [facility] [id number] 90-1 MG Orally April 21, Active 1 tablet Once a day 2017 Results No Known Results Summary Purpose eClinicalWorks Submission
--- OUTSIDE RECORDS SUMMARY | 2018-01-08 00:12 | XMS REPORT ---
[...] third trimester Problem H/O section Z98.891 Active Problem Elderly multigravida in third O09.523 Active trimester Medications No Known Medications Results No Known Results Summary Purpose eClinicalWorks Submission
--- OUTSIDE RECORDS SUMMARY | 2018-01-08 00:12 | XMS REPORT ---
[...] End Date Status Dosage Date Ferralet 90 [facility] [id number] 90-1 MG Orally April 21, Active 1 tablet Once a day 2017 Results No Known Results Summary Purpose eClinicalWorks Submission
[2018-01-08 01:51] LABS: Absolute Lymphocytes (CBC) 2.7 K/uL (0.7-4.9); Absolute Monocytes 0.6 K/uL (0.1-1.3); Absolute Neutrophil 5.8 K/uL (1.8-8.0); Basophils % 0.6 % (0-1.3); Hematocrit 38.3 % (36.0-45.0); Lymphocytes % 28.4 % (15.3-44.8); MCH 30.1 pg (27.0-35.0); MCV 89.8 fL (80-100); MPV 8.5 fL (7.6-11.3); Monocytes % 6.3 % (3.3-12.3); RBC Red Blood Cell Count 4.26 M/uL (3.86-4.86)
[2018-01-08 02:05] LABS: ALT/SGPT 30 U/L (12-78); AST/SGOT 19 U/L (15-37); Alkaline Phosphatase 69 U/L (45-117); BUN Blood Urea Nitrogen 15 mg/dL (7-18); Bicarbonate 25 mmol/L (21-32); Bilirubin Direct < 0.1 mg/dL (0-0.2); Bilirubin Total 0.2 mg/dL (0.2-1.0); Glucose Level 94 mg/dL (74-106); Lipase 150 U/L (73-393); Potassium 3.6 mmol/L (3.5-5.1); Protein, Total 7.2 g/dL (6.4-8.2); Sodium Level 140 mmol/L (136-145)
--- NOTE | 2018-01-08 04:27 | ER ---
Nurse's Notes [facility] Name: Bran Garner Age: 37 yrs Sex: Female : 1980 Arrival Date: 01/08/2018 Time: 00:11 Bed 20 Private MD: Diagnosis: Rectal Bleeding Presentation: 01/08 00:26 Presenting complaint: Patient states: that she is having rectal bleeding with bowel fc movement. Started last week. Today bleeding was bright red and every time she went to the bathroom even if she did not have BM. Denies any diarrhea or constipation. Has had hemorrhoids before but does not feel as if that is the problem. Transition of care: patient was not received from another setting of care. Onset of symptoms was December 31, 2017. Risk Assessment: Do you want to hurt yourself or someone else? Patient reports no desire to harm self or others. Initial Sepsis Screen: Does the patient meet any 2 criteria? No. Patient's initial sepsis screen is negative. Does the patient have a suspected source of infection? No. Patient's initial sepsis screen is negative. Care prior to arrival: None. 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 - Social history:: Smoking status: Patient/guardian denies using tobacco, Patient uses alcohol, occasionally. - Ebola Screening: : Patient negative for fever greater than or equal to 101.5 degrees Fahrenheit, and additional compatible Ebola Virus Disease symptoms Patient denies exposure to infectious person Patient denies travel to an Ebola-affected area in the 21 days before illness onset. Screenin:01 Abuse screen: Denies threats or abuse. Denies injuries from another. Nutritional lp1 screening: No deficits noted. Tuberculosis screening: No symptoms or risk factors identified. Fall Risk None identified. Assessment: 00:30 General: Appears in no apparent distress. comfortable, Behavior is appropriate for age. lp1 Pain: Denies pain. Neuro: Level of Consciousness is awake, alert, obeys commands, Oriented to person, place, time, situation. Cardiovascular: Patient's skin is warm and dry. Respiratory: Respiratory effort is even, unlabored. GI: Abdomen is round non-distended, Reports rectal bleeding. : No signs and/or symptoms were reported regarding the genitourinary system. EENT: No signs and/or symptoms were reported regarding the EENT system. Derm: Skin is pink, warm \T\ dry. Musculoskeletal: Circulation, motion, and sensation intact. 01:30 Reassessment: Patient appears in no apparent distress at this time. No changes from lp1 previously documented assessment. Patient and/or family updated on plan of care and expected duration. Pain level reassessed. 03:00 Reassessment: Patient appears in no apparent distress at this time. Patient and/or lp1 family updated on plan of care and expected duration. Pain level reassessed. Patient is alert, oriented x 3, equal unlabored respirations, skin warm/dry/pink. Patient aware of pending CT results. 04:00 Reassessment: Patient appears in no apparent distress at this time. Patient is alert, lp1 oriented x 3, equal unlabored respirations, skin warm/dry/pink. Patient denies pain at this time. Vital Signs: 00:30 BP 120 / 77; Pulse 71; Resp 18; Temp 99.0(O); Pulse Ox 100% on R/A; Weight 70.31 kg fc (R); Height 4 ft. 11 in. (149.86 cm) (R); Pain 0/10; 01:45 BP 113 / 60; Pulse 72; Resp 16; Pulse Ox 100% on R/A; lp1 03:00 BP 111 / 70; Pulse 68; Resp 18; Pulse Ox 100% on R/A; lp1 04:00 BP 115 / 67; Pulse 79; Resp 16; Pulse Ox 100% on R/A; Pain 0/10; lp1 00:30 Body Mass Index 31.31 (70.31 kg, 149.86 cm) ED Course: 00:11 Patient arrived in ED. al2 00:29 Triage completed. 00:30 Arm band placed on Patient placed in an exam room, on a stretcher. 00:46 Calvin Prieto PA is PHCP. [facility] 00:46 Memo Calixto MD is Attending Physician. [facility] 00:52 Jenny Schmitz, RN is Primary Nurse. lp1 01:01 Patient has correct armband on for positive identification. Placed in gown. Pulse ox lp1 on. NIBP on. 01:02 Inserted saline lock: 22 gauge in right upper arm, using aseptic technique. Blood lp1 collected. By PRISCILA Garcia. 02:[address] via wheelchair. kw1 02:43 CT Abd/Pelvis - W/Contrast In Process Unspecified. EDMS 02:45 CT completed. Patient tolerated procedure well. Patient moved back from CT. kw1 03:18 No provider procedures requiring assistance completed. lp1 04:26 Marcello Pope MD is Referral Physician. rn 04:43 IV discontinued, No redness/swelling at site. Pressure dressing applied. lp1 Administered Medications: No medications were administered Outcome: 04:27 Discharge ordered by MD. rn 04:43 Discharged to home ambulatory. lp1 04:43 Condition: good 04:43 Discharge instructions given to patient, Instructed on discharge instructions, follow up and referral plans. medication usage, Demonstrated understanding of instructions, follow-up care, medications, Prescriptions given X 2. 04:44 Patient left the ED. lp1 Signatures: Dispatcher [employer] EDAK Calvin Prieto PA PA jmm Chretien, Felicia, RN PRISCILA Memo Calixto MD MD rn Pena, Laura, RN RN lp1 Cecile Black kw1 Domonique Pérez al2
--- NOTE | 2018-01-08 04:28 | EDPHYS ---
Physician Documentation [facility] Name: Bran Garner Age: 37 yrs Sex: Female : 1980 Arrival Date: 01/08/2018 Time: 00:11 Bed 20 Private MD: ED Physician Memo Calixto HPI: 01/08 01:06 This 37 yrs old Female presents to ER via Ambulatory with complaints of Rectal jmm Bleeding. 01:06 The patient presents to the emergency department with bleeding from the rectum/anus, jmm that is moderate. Onset: The symptoms/episode began/occurred 1 week(s) ago. Associate signs and symptoms: Pertinent positives: abdominal pain in the right lower quadrant and left lower quadrant. This is a 37 year old female with no chronic medical conditions that presents to the ED with rectal bleeding and lower abdominal pain worsening today. Patient denies fever, denies vomiting. . 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 - Social history:: Smoking status: Patient/guardian denies using tobacco, Patient uses alcohol, occasionally. - Ebola Screening: : Patient negative for fever greater than or equal to 101.5 degrees Fahrenheit, and additional compatible Ebola Virus Disease symptoms Patient denies exposure to infectious person Patient denies travel to an Ebola-affected area in the 21 days before illness onset. ROS: 01:06 Constitutional: Negative for fever, chills, and weight loss, Cardiovascular: Negative jmm for chest pain, palpitations, and edema, Respiratory: Negative for shortness of breath, cough, wheezing, and pleuritic chest pain. 01:06 Abdomen/GI: Positive for rectal bleeding. 01:06 All other systems are negative. Exam: 01:06 Constitutional: This is a well developed, well nourished patient who is awake, alert, jmm and in no acute distress. Head/Face: atraumatic. Eyes: EOMI, no conjunctival erythema appreciated ENT: Moist Mucus Membranes Neck: Trachea midline, Supple Chest/axilla: Normal chest wall appearance and motion. Cardiovascular: Regular rate and rhythm. No edema appreciated Respiratory: Normal respirations, no respiratory distress appreciated 01:06 Abdomen/GI: Inspection: abdomen appears normal, Bowel sounds: normal, Palpation: soft, mild abdominal tenderness, in the right lower quadrant and left lower quadrant. 01:06 Back: ROM is normal. 01:06 Musculoskeletal/extremity: ROM: intact in all extremities. 01:06 Skin: Appearance: Color: normal in color. 01:06 Neuro: Orientation: is normal, Mentation: is normal, Memory: is normal. 01:06 Psych: Behavior/mood is pleasant, cooperative. Vital Signs: 00:30 BP 120 / 77; Pulse 71; Resp 18; Temp 99.0(O); Pulse Ox 100% on R/A; Weight 70.31 kg fc (R); Height 4 ft. 11 in. (149.86 cm) (R); Pain 0/10; 01:45 BP 113 / 60; Pulse 72; Resp 16; Pulse Ox 100% on R/A; lp1 03:00 BP 111 / 70; Pulse 68; Resp 18; Pulse Ox 100% on R/A; lp1 04:00 BP 115 / 67; Pulse 79; Resp 16; Pulse Ox 100% on R/A; Pain 0/10; lp1 00:30 Body Mass Index 31.31 (70.31 kg, 149.86 cm) fc MDM: 01:06 Patient medically screened. [facility] 03:02 Data reviewed: vital signs, nurses notes. Transition of care: After a detail discussion [facility] of the patient's case, care is transferred to Memo Calixto MD. 04:25 Differential diagnosis: hemorrhoids, intestinal infection. Counseling: I had a detailed rn discussion with the patient and/or guardian regarding: the historical points, exam findings, and any diagnostic results supporting the discharge/admit diagnosis, lab results, radiology results, the need for outpatient follow up, to return to the emergency department if symptoms worsen or persist or if there are any questions or concerns that arise at home. Response to treatment: the patient's symptoms have mildly improved after treatment, and as a result, I will discharge patient. Special discussion: I discussed with the patient/guardian in detail that at this point there is no indication for admission to the hospital. It is understood, however, that if the symptoms persist or worsen the patient needs to return immediately for re-evaluation. Special discussion: Based on the history and exam findings, there is no indication for further emergent testing or inpatient evaluation. 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 01/08 01:06 Order name: Basic Metabolic Panel; Complete Time: 02:13 [facility] 01/08 01:06 Order name: CBC with Diff; Complete Time: 01:57 [facility] 01/08 01:06 Order name: Creatinine for Radiology; Complete Time: 02:13 [facility] 01/08 01:06 Order name: Hepatic Function; Complete Time: 02:13 [facility] 01/08 01:06 Order name: Lipase; Complete Time: 02:13 [facility] 01/08 01:06 Order name: Type And Screen; Complete Time: 15:07 [facility] 01/08 01:06 Order name: IV Saline Lock; Complete Time: :44 [facility] 01/08 01:06 Order name: Labs collected and sent; Complete Time: :44 [facility] 01/08 01:06 Order name: CT Abd/Pelvis - W/Contrast; Complete Time: 15:07 [facility] 01/08 02:05 Order name: Urine Dipstick--Ancillary (enter results); Complete Time: 15:07 em1 01/08 02:05 Order name: Urine --Ancillary (enter results); Complete Time: 15:07 em1 Administered Medications: No medications were administered Disposition: 05:33 Co-signature as Attending Physician, Memo Calixto MD. rn Disposition: 01/08/18 04:27 Discharged to Home. Impression: Rectal Bleeding. - Condition is Stable. - Discharge Instructions: Rectal Bleeding. - Prescriptions for Flagyl 500 mg Oral Tablet - take 1 tablet by ORAL route every 8 hours for 10 days; 30 tablet. Cipro 500 mg Oral Tablet - take 1 tablet by ORAL route every 12 hours for 10 days; 20 tablet. - Medication Reconciliation Form, Thank You Letter, Antibiotic Education, Prescription Opioid Use form. - Follow up: Marcello Pope MD; When: As needed; Reason: Recheck today's complaints, Re-evaluation by your physician. - Problem is new. - Symptoms have improved. Signatures: Dispatcher [employer] Calvin Judge PA PA jmm Chretien, Felicia, RN RN fc Memo Calixto MD MD rn Jenny Schmitz RN RN lp1 Corrections: (The following items were deleted from the chart) 04:44 04:27 01/08/2018 04:27 Discharged to Home. Impression: Rectal Bleeding. Condition is lp1 Stable. Forms are Medication Reconciliation Form, Thank You Letter, Antibiotic Education, Prescription Opioid Use. Follow up: Marcello Pope; When: As needed; Reason: Recheck today's complaints, Re-evaluation by your physician. Problem is new. Symptoms have improved. rn
[2018-01-08 04:49] VITALS: TEMP 99; O2SAT 100
[2018-01-08 04:52] VITALS: BP 115/67
[2018-01-08 05:45] LABS: Urine Blood 1+ (NEG); Urine Glucose NEGATIVE (NEG); Urine Protein 2+ (NEG); Urine Specific Gravity 1.025 (1.005-1.030)
--- NOTE | 2018-01-08 09:59 | RAD REPORT ---
EXAM DESCRIPTION: CT - Abdomen Pelvis W Contrast - 01/08/2018 5:53 am CLINICAL HISTORY: Lower abdominal pain, rectal bleeding with bowel movement A preliminary report was provided at the time of the study and reviewed prior to final report. COMPARISON: None. TECHNIQUE: Biphasic, helical CT imaging of the abdomen and pelvis was performed following 100 ml non -ionic IV contrast. Oral contrast was given. All CT scans are performed using dose optimization technique as appropriate and may include automated exposure control or mA/KV adjustment according to patient size. FINDINGS: No suspicious findings in the lung bases. The liver, spleen, and pancreas show no suspicious findings. Small gallstones are identified. Acute g allbladder process is not confirmed. No biliary tree dilatation. Symmetric renal function is seen with no hydronephrosis or suspicious renal mass. No adrenal abnormal ity. There is no pyelonephritis or acute renal parenchymal process. No urinary bladder abnormality. U terus and ovaries within normal limits as well. No dilated bowel loops or bowel wall thickening. Appendix is normal. No free air, free fluid or infla mmatory stranding. No hernia, mass or bulky lymphadenopathy. No suspicious bony findings. IMPRESSION: No colon mass, wall thickening or other acute colon process. The appendix and remainder the GI tract also without acute finding. 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 Cholelithiasis, probably incidental, with no biliary dilatation.
== END 2018-01-08 04:44 | disposition home or self-care (01) ==
LOC: ER 00:10
DX: K62.5 Hemorrhage of anus and rectum (principal)
CPT/HCPCS: 36415; 74177; 80048; 80076; 81003; 81025; 83690; 85025; 86850; 86900; 86901; 99284; Q9967

== ENCOUNTER → 2023-04-01 | Emergency (ER) | payer BC ==
--- OUTSIDE RECORDS SUMMARY | 2023-04-01 19:09 | XMS REPORT | Continuity of Care Document ---
Author Name Unknown Address [address] [facility] [place] [address] [facility] Address [address] [facility] [place] [address] Care Team Providers Care Industrial Servicer Name Role Phone Tam Mcclelland Primary Care Physician [phone] Nereida Gonzalez Attending Clinician Unavail MIKE Dwyer Attending Clinician Unavail NICHOLE Ye Attending Clinician NICHOLE Nelson Attending Clinician Mary Grace Masters MD, Mike Mabry Attending Clinician [phone] [email or web address] Attending Clinician UnavailRadha Mendosa RN Attending Clinician [phone] Rahul Franco MD Attending Clinician [phone] Asmita Kiser DO Attending Clinician [phone] Rhona Lau MD Attending Clinician + [phone] Toya Major MD Attending Clinician [phone] LJ VILLARREAL Attending Clinician Unavailable LJ VILLARREAL Attending Clinician Unavailable Saw MAYES, Charmaine Attending Clinician [phone] Berlin Sow MD Attending Clinician [phone] Daksha Hernandez MD Attending Clinician [phone] Rafael Lux CRNA Attending Clinician Doctor Unassigned, [place] Attending Clinician U albaroailRHONA Evans Attending Clinician Tiburcio jorge 2, [facility] Attending Clinician Unavailable MIR ROBBINS Attending Clinician Unavailable Unknown, Attending Attending Clinician Unavailab Mir Benjamin PA-C Attending Clinician [phone] Ricco Rust Attending Clinician [phone] RICCO DAIGLE Attending Clinician Unavail able RAJ VALDIVIA Attending Clinician Unavailable Raj Masterson Attending Clinician [phone] ELIZABETH ROSALES Attending Clinician Unavail able Bobby MAYES, Elizabeth Abraham Attending Clinician [phone] Janelle Bray MA Attending Clinician Unavailabl UYEN Osorio Attending Clinician Unavailab UYEN Crane Attending Clinician Unavailab LURDES Jay Attending Clinician Unavail able [facility] Attending [facility] + Michael Ochoa MD Attending Clinician [phone] [email or web address] Admitting Clinician UnavailMIKE Baptiste Admitting Clinician Unavail jasmina Masters MD, Mike Mabry Admitting Clinician [phone] Toya Major MD Admitting Clinician [phone] TOYA MAJOR Admitting Clinician Unavailable RHONA LAU Admitting Clinician NICHOLE Adorno Admitting Clinician Unavaila irwin Payers Payer Name Policy Type Policy Number Effective Date Expirati on Date Source [facility] [id number] 2022 00:00:[place] [id number] 2022 00:00:00 [facility] 6 [id number] Common [facility] Problems Condition Name Condition Details Condition Category Status Onset Date Resolution Date Last Treatment Date Treating Clinician Comments Source 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 Disease Active 2022-02 2-02 00:00: 00 [facility] Generalize d abdominal pain Generalize d abdominal pain Disease Active 2022-02 1-30 00:00: 00 [facility] Post-opera tive state Post-opera tive state Disease Active 2022-02 1-10 00:00: 00 [facility] S/P laparoscop ic assisted vaginal hysterecto my ([facility]) S/P laparoscop ic assisted vaginal hysterecto my ([facility]) Disease Active 2022-02 1-09 00:00: 00 [facility] Pain pelvic Pain pelvic Disease Active 2022-02 0-23 00:00: 00 [facility] MARIA C (stress urinary incontinen ce, female) MARIA C (stress urinary incontinen ce, female) Disease Active 2022-02 0-23 00:00: 00 [facility] Dyspareuni a, female Dyspareuni a, female Disease Active 9-12 00:00: 00 [facility] Adenomyosi s Adenomyosi s Disease Active 9-12 00:00: 00 [facility] Herpes, vulvar Herpes, vulvar Disease Active 8-22 00:00: 00 [facility] Excessive growth affecting management of in third trimester, single or unspecifie d fetus Excessive growth affecting management of in third trimester, single or unspecifie d fetus Disease Active 3-03 00:00: 00 [facility] Hymen abnormalit y Hymen abnormalit y Disease Active 2-28 00:00: 00 [facility] Stress incontinen ce Stress incontinen ce Disease Active 2-28 00:00: 00 [facility] Dysuria Dysuria Disease Active 2-28 00:00: 00 [facility] Vaginal discharge Vaginal discharge Disease Active 2-28 00:00: 00 [facility] Recurrent candidiasi s of vagina Recurrent candidiasi s of vagina Disease Active 04-06 00:00: 00 [facility] Well woman exam with routine gynecologi driss exam Well woman exam with routine gynecologi driss exam Disease Active 04-06 00:00: 00 [facility] Other hemorrhoid s Other hemorrhoid s Disease Active 04-06 00:00: 00 [facility] Yeast infection Yeast infection Disease Active 04-03 00:00: 00 [facility] Folliculit is Folliculit is Disease Active 04-03 00:00: 00 [facility] HSV-2 infection HSV-2 infection Disease Active 2015-02 00:00: 00 [facility] Overweight Overweight Disease Active 2015-02 00:00: 00 [facility] Atypical squamous cell changes of undetermin ed significan ce (ASCUS) on cervical cytology with 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 virus (HPV) Atypical squamous cell changes of undetermin ed significan ce (ASCUS) on cervical cytology with 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 A2GDM- glyburide 2012 BWt= 4508 [place]- 10/26 [facility] Susceptibl e to Varicella (non-immun e), currently in third trimester Susceptibl e to Varicella (non-immun e), currently in third trimester Disease Active 08-19 00:00: 00 [facility] [id number] Body mass index [BMI] 30.0-30.9, adult Problem [facility] [id number] S/P small bowel resection Problem [facility] [id number] S/P hysterecto my Problem [facility] [id number] Mixed stress and urge urinary incontinen ce Problem [facility] [id number] H/O section Problem [facility] [id number] Gastroesop hageal reflux disease without esophagiti s Problem [facility] [id number] Other obesity due to excess calories Problem [facility] Allergies, Adverse Reactions, Alerts Allergy Name Allergy Type Status Severity Reaction(s) Onset Date Inactive Date Treating Clinician Comments Source NO KNOWN ALLERGIE S Drug Class Active [facility] Family History Family Member Diagnosis Comments Start Date Stop Date Sourc e Natural father Diabetes Unive [facility] Maternal grandfather Hypertension [facility] Natural mother Cervical Cancer [facility] Hy[facility] Social History Social Habit Start Date Stop Date Quantity Comments Source Gender identity [facility] Sexual [facility] History of Tobacco Use [facility] Sex Assigned At [facility] Alcohol intake 2023-03-24 00:00:00 2023-03-24 00:00:00 Current drinker of alcohol (finding) [facility] History of Social function 2022-12-16 00:00:00 2022-12-16 00:00:00 [facility] Tobacco use and exposure 2022-10-29 00:00:00 2022-10-29 00:00:00 Smokeless tobacco non-user [facility] Exposure to SARS-CoV-2 (event) 2022-04-06 00:00:00 2022-04-16 08:40:00 Not sure [facility] Alcohol Comment 2022-04-16 00:00:00 2022-04-16 00:00:00 occasionally [facility] Smoking Status Start Date Stop Date Source Never smoked tobacco [facility] Medications Ordered Medication Name Filled Medication Name Start Date Stop Date Current Medication? Ordering Clinician Indication Dosage Frequency Signature (SIG) Comments Components Source Pantoprazol e Sodium 40 MG Pantoprazol e Sodium 40 MG 02-25 00:00: 00 No 1{table t} QD Pantoprazo le Sodium 40 MG Pantoprazol e Sodium 40 MG Pantoprazol e Sodium 40 MG 02-25 00:00: 00 No 1{table t} QD Pantoprazo le Sodium 40 MG pantoprazol e 40 mg EC tablet 02-10 00:00: 00 Yes [id number] 40mg Take 1 tablet by mouth in the morning. [facility] zolpidem (AMBIEN) 10 mg tablet 02-10 00:00: 00 Yes [id number] 10mg Take 1 tablet by mouth at bedtime as needed for Insomnia. [facility] pantoprazol e 40 mg EC tablet 02-10 00:00: 00 Yes [id number] 40mg Take 1 tablet by mouth in the morning. [facility] zolpidem (AMBIEN) 10 mg tablet 02-10 00:00: 00 Yes [id number] 10mg Take 1 tablet by mouth at bedtime as needed for Insomnia. [facility] pantoprazol e 40 mg EC tablet 02-10 00:00: 00 Yes [id number] 40mg Take 1 tablet by mouth in the morning. [facility] zolpidem (AMBIEN) 10 mg tablet 02-10 00:00: 00 Yes [id number] 10mg Take 1 tablet by mouth at bedtime as needed for Insomnia. [facility] pantoprazol e 40 mg EC tablet 02-10 00:00: 00 Yes [id number] 40mg Take 1 tablet by mouth in the morning. [facility] zolpidem (AMBIEN) 10 mg tablet 02-10 00:00: 00 Yes [id number] 10mg Take 1 tablet by mouth at bedtime as needed for Insomnia. [facility] pantoprazol e 40 mg EC tablet 02-10 00:00: 00 Yes [id number] 40mg Take 1 tablet by mouth in the morning. [facility] zolpidem (AMBIEN) 10 mg tablet 02-10 00:00: 00 Yes [id number] 10mg Take 1 tablet by mouth at bedtime as needed for Insomnia. [facility] simethicone 80 mg chewable tablet 2022-02 00:00: 00 Yes [id number] 160mg Take 2 tablets by mouth after meals and at bedtime. [facility] methocarbam oL 1,000 mg Tab 2022-02 00:00: 00 Yes [id number] 1000mg Take 1,000 mg by mouth every 8 (eight) hours. [facility] simethicone 80 mg chewable tablet 2022-02 00:00: 00 Yes [id number] 160mg Take 2 tablets by mouth after meals and at bedtime. [facility] simethicone 80 mg chewable tablet 2022-02 00:00: 00 Yes [id number] 160mg Take 2 tablets by mouth after meals and at bedtime. [facility] simethicone 80 mg chewable tablet 2022-02 00:00: 00 Yes [id number] 160mg Take 2 tablets by mouth after meals and at bedtime. [facility] simethicone 80 mg chewable tablet 2022-02 00:00: 00 Yes [id number] 160mg Take 2 tablets by mouth after meals and at bedtime. [facility] simethicone 80 mg chewable tablet 2022-02 00:00: 00 Yes [id number] 160mg Take 2 tablets by mouth after meals and at bedtime. [facility] simethicone 80 mg chewable tablet 2022-02 00:00: 00 Yes [id number] 160mg Take 2 tablets by mouth after meals and at bedtime. [facility] simethicone 80 mg chewable tablet 2022-02 00:00: 00 Yes [id number] 160mg Take 2 tablets by mouth after meals and at bedtime. [facility] methocarbam oL 1,000 mg Tab 2022-02 00:00: 00 01-28 00:00 :00 No [id number] 1000mg Take 1,000 mg by mouth every 8 (eight) hours. [facility] methocarbam oL 1,000 mg Tab 2022-02 00:00: 00 01-28 00:00 :00 No [id number] 1000mg Take 1,000 mg by mouth every 8 (eight) hours. [facility] Total Parenteral Nutrition Adult 2022-02 03:00: 00 01-18 16:59 :00 Yes at 84-168 mL/hr, 2,184 mL, TPN CYCLIC, Starting on 01/17/23 at 2100, Until 01/18/23 at 1059 [facility] iopamidol (ISOVUE 370-500 mL) injection 30 mL 2022-02 18:53: 00 01-17 18:53 :00 No [id number] 30mL 30 mL, Oral, ONCE, 1 dose, On 01/17/23 at 1315, Routine [facility] Total Parenteral Nutrition Adult 2022-02 03:00: 00 01-17 16:59 :00 No at 84-168 mL/hr, 2,184 mL, TPN CYCLIC, Starting on 01/16/23 at 2100, Until 01/17/23 at 1059 [facility] Total Parenteral Nutrition Adult 2022-02 03:00: 00 01-16 16:59 :00 No at 84-168 mL/hr, 2,184 mL, TPN CYCLIC, Starting on 01/15/23 at 2100, Until 01/16/23 at 1059 [facility] Total Parenteral Nutrition Adult 2022-02 03:00: 00 01-15 16:59 :00 No at 84-168 mL/hr, 2,184 mL, TPN CYCLIC, Starting on 01/14/23 at 2100, Until 01/15/23 at 1059 [facility] Total Parenteral Nutrition Adult 2022-02 03:00: 00 01-14 16:59 :00 No at 84-168 mL/hr, 2,184 mL, TPN CYCLIC, Starting on Dorothea 01/13/23 at 2100, Until 01/14/23 at 1059 [facility] loperamide 2 mg capsule 2022-02 00:00: 00 Yes [id number] 2mg Take 1 capsule by mouth in the morning and 1 capsule in the evening. [facility] melatonin 3 mg tablet 2022-02 00:00: 00 Yes [id number] 3mg Take 1 tablet by mouth at bedtime. [facility] methocarbam oL 1,000 mg Tab 2022-02 00:00: 00 Yes [id number] 1000mg Take 1,000 mg by mouth every 8 (eight) hours. [facility] octreotide 100 mcg/mL injection 2022-02 00:00: 00 Yes [id number] 100ug inject 1 mL under the skin every 12 (twelve) hours. [facility] ondansetron 4 mg disintegrat ing tablet 2022-02 00:00: 00 Yes [id number] 4mg Take 1 tablet by mouth every 8 (eight) hours as needed for Nausea and Vomiting (N/V). [facility] loperamide 2 mg capsule 2022-02 00:00: 00 Yes [id number] 2mg Take 1 capsule by mouth in the morning and 1 capsule in the evening. [facility] melatonin 3 mg tablet 2022-02 00:00: 00 Yes [id number] 3mg Take 1 tablet by mouth at bedtime. [facility] methocarbam oL 1,000 mg Tab 2022-02 00:00: 00 Yes [id number] 1000mg Take 1,000 mg by mouth every 8 (eight) hours. [facility] ondansetron 4 mg disintegrat ing tablet 2022-02 00:00: 00 Yes [id number] 4mg Take 1 tablet by mouth every 8 (eight) hours as needed for Nausea and Vomiting (N/V). [facility] loperamide 2 mg capsule 2022-02 00:00: 00 Yes [id number] 2mg Take 1 capsule by mouth in the morning and 1 capsule in the evening. [facility] melatonin 3 mg tablet 2022-02 00:00: 00 Yes [id number] 3mg Take 1 tablet by mouth at bedtime. [facility] methocarbam oL 1,000 mg Tab 2022-02 00:00: 00 Yes [id number] 1000mg Take 1,000 mg by mouth every 8 (eight) hours. [facility] ondansetron 4 mg disintegrat ing tablet 2022-02 00:00: 00 Yes [id number] 4mg Take 1 tablet by mouth every 8 (eight) hours as needed for Nausea and Vomiting (N/V). [facility] loperamide 2 mg capsule 2022-02 00:00: 00 Yes [id number] 2mg Take 1 capsule by mouth in the morning and 1 capsule in the evening. [facility] melatonin 3 mg tablet 2022-02 00:00: 00 Yes [id number] 3mg Take 1 tablet by mouth at bedtime. [facility] ondansetron 4 mg disintegrat ing tablet 2022-02 00:00: 00 Yes [id number] 4mg Take 1 tablet by mouth every 8 (eight) hours as needed for Nausea and Vomiting (N/V). [facility] loperamide 2 mg capsule 2022-02 00:00: 00 Yes [id number] 2mg Take 1 capsule by mouth in the morning and 1 capsule in the evening. [facility] melatonin 3 mg tablet 2022-02 00:00: 00 Yes [id number] 3mg Take 1 tablet by mouth at bedtime. [facility] ondansetron 4 mg disintegrat ing tablet 2022-02 00:00: 00 Yes [id number] 4mg Take 1 tablet by mouth every 8 (eight) hours as needed for Nausea and Vomiting (N/V). [facility] loperamide 2 mg capsule 2022-02 00:00: 00 Yes [id number] 2mg Take 1 capsule by mouth in the morning and 1 capsule in the evening. [facility] melatonin 3 mg tablet 2022-02 00:00: 00 Yes [id number] 3mg Take 1 tablet by mouth at bedtime. [facility] ondansetron 4 mg disintegrat ing tablet 2022-02 00:00: 00 Yes [id number] 4mg Take 1 tablet by mouth every 8 (eight) hours as needed for Nausea and Vomiting (N/V). [facility] melatonin 3 mg tablet 2022-02 00:00: 00 Yes [id number] 3mg Take 1 tablet by mouth at bedtime. [facility] methocarbam oL 500 mg tablet 2022-02 00:00: 00 Yes 1000mg Take 2 tablets by mouth every 8 (eight) hours. [facility] melatonin 3 mg tablet 2022-02 00:00: 00 Yes [id number] 3mg Take 1 tablet by mouth at bedtime. [facility] methocarbam oL 500 mg tablet 2022-02 00:00: 00 Yes 1000mg Take 2 tablets by mouth every 8 (eight) hours. [facility] melatonin 3 mg tablet 2022-02 00:00: 00 Yes [id number] 3mg Take 1 tablet by mouth at bedtime. [facility] methocarbam oL 500 mg tablet 2022-02 00:00: 00 Yes 1000mg Take 2 tablets by mouth every 8 (eight) hours. [facility] melatonin 3 mg tablet 2022-02 00:00: 00 Yes [id number] 3mg Take 1 tablet by mouth at bedtime. [facility] methocarbam oL 500 mg tablet 2022-02 00:00: 00 Yes 1000mg Take 2 tablets by mouth every 8 (eight) hours. [facility] melatonin 3 mg tablet 2022-02 00:00: 00 Yes [id number] 3mg Take 1 tablet by mouth at bedtime. [facility] methocarbam oL 500 mg tablet 2022-02 00:00: 00 Yes 1000mg Take 2 tablets by mouth every 8 (eight) hours. [facility] loperamide 2 mg capsule 2022-02 00:00: 02-10 00:00 :00 No [id number] 2mg Take 1 capsule by mouth in the morning and 1 capsule in the evening. [facility] ondansetron 4 mg disintegrat ing tablet 2022-02 00:00: 00 02-10 00:00 :00 No [id number] 4mg Take 1 tablet by mouth every 8 (eight) hours as needed for Nausea and Vomiting (N/V). [facility] loperamide 2 mg capsule 2022-02 00:00: 00 02-10 00:00 :00 No [id number] 2mg Take 1 capsule by mouth in the morning and 1 capsule in the evening. [facility] ondansetron 4 mg disintegrat ing tablet 2022-02 00:00: 00 02-10 00:00 :00 No [id number] 4mg Take 1 tablet by mouth every 8 (eight) hours as needed for Nausea and Vomiting (N/V). [facility] HYDROcodone -acetaminop hen 5-325 mg tablet 2022-02 00:00: 00 01-22 05:59 :00 Yes [id number] 1{tbl} Take 1 tablet by mouth every 6 (six) hours as needed for Pain (scale 7-10) for up to 7 days. Indication s: acute pain [facility] traMADoL 50 mg tablet 2022-02 00:00: 00 01-22 05:59 :00 Yes [id number] 50mg Take 1 tablet by mouth every 6 (six) hours as needed for Pain (scale 4-6) for up to 7 days. Indication s: chronic pain [facility] HYDROcodone -acetaminop hen 5-325 mg tablet 2022-02 2 00:00: 00 01-22 05:59 :00 Yes [id number] 1{tbl} Take 1 tablet by mouth every 6 (six) hours as needed for Pain (scale 7-10) for up to 7 days. Indication s: [facility] 2022-02 2 00:00: 00 01-22 05:59 :00 Yes [id number] 50mg Take 1 tablet by mouth every 6 (six) hours as needed for Pain (scale 4-6) for up to 7 days. Indication s: chronic pain [facility] HYDROcodone -acetaminop hen 5-325 mg tablet 2022-02 00:00: 00 01-22 05:59 :00 Yes [id number] 1{tbl} Take 1 tablet by mouth every 6 (six) hours as needed for Pain (scale 7-10) for up to 7 days. Indication s: acute pain [facility] traMADoL 50 mg tablet 2022-02 2 00:00: 00 01-22 05:59 :00 Yes [id number] 50mg Take 1 tablet by mouth every 6 (six) hours as needed for Pain (scale 4-6) for up to 7 days. Indication s: chronic pain [facility] HYDROcodone -acetaminop hen 5-325 mg tablet 2022-02 2 00:00: 00 01-22 05:59 :00 Yes [id number] 1{tbl} Take 1 tablet by mouth every 6 (six) hours as needed for Pain (scale 7-10) for up to 7 days. Indication s: acute pain [facility] traMADoL 50 mg tablet 2022-02 2 00:00: 00 01-22 05:59 :00 Yes [id number] 50mg Take 1 tablet by mouth every 6 (six) hours as needed for Pain (scale 4-6) for up to 7 days. Indication s: chronic pain [facility] methocarbam oL 1,000 mg Tab 2022-02 2 00:00: 00 01-19 00:00 :00 No [id number] 1000mg Take 1,000 mg by mouth every 8 (eight) hours. [facility] dextrose in water SolP 240.002 g, parenteral amino acid 15% 15 % SolP 94.9995 g, SMOF LIPID 20% 20 % Emul 50 g, sodium chloride 4 mEq/mL SolP 80 mEq, sodium phosphate 3 mMole/mL Soln 9.99 mmol, sodium acetate 2 mEq/mL Soln 40 mEq, potassium acetate 2 mEq/mL Soln 60 mEq, calcium gluconate 100 mg/mL (10%) Soln 8 mEq, magnesium sulfate 50 % Soln 10 mEq, multivitami n adult 3,300 unit- 150 mcg/10 mL Soln 10 mL, trace elements Zn-Cu-Mn-Se (TRALEMENT) 3 mg-0.3 mg-55 mcg-60 mcg/mL Soln 1 mL, thiamine 100 mg/mL Soln 100 mg, foLIC acid 5 mg/mL Soln 1 mg 2022-02 00:00: 00 01-17 00:00 :00 No [id number] by IV Infusion route daily. [facility] acetaminoph en (TYLENOL) tablet 650 mg 2022-02 06:00: 00 Yes 650mg 650 mg, Oral, Q6H, First dose on Dorothea 01/13/23 at 0000, Until Discontinu ed, Routine [facility] morpHINE (4 mg/mL) injection 4 mg 2022-02 04:30: 00 Yes 4mg 4 mg, Slow IV Push, PRN - SEE INSTRUCTIO NS, Starting on Tue01/12/23 at 2230, Until Discontinu ed, Routine, rescue dose [facility] traMADoL (ULTRAM) tablet 50 mg 2022-02 04:25: 41 Yes 50mg 50 mg, Oral, Q6HPRN, Starting on Tue01/12/23 at 2225, Until Discontinu ed, Routine, Pain (scale 4-6) [facility] HYDROcodone -acetaminop hen (NORCO 5) 5-325 mg tablet 1 tablet 2022-02 04:24: 38 Yes 1{tbl} 1 tablet, Oral, Q6HPRN, Starting on Tue01/12/23 at 2224, Until Discontinu ed, Routine, Pain (scale 7-10) [facility] Total Parenteral Nutrition Adult 2022-02 03:00: 00 01-14 02:59 :00 No at 91 mL/hr, 2,184 mL, TPNCONTINU OUS, Starting on Tue01/12/23 at 2100, Until Tue01/13/23 at 2058 [facility] loperamide (IMODIUM A-D) capsule 2 mg 2022-02 02:00: 00 01-14 14:06 :01 No 2mg 2 mg, Oral, BID, First dose on Tue01/12/23 at 2000, Until Discontinu ed, Routine [facility] Total Parenteral Nutrition Adult 2022-02 03:00: 00 01-13 02:59 :00 No at 75 mL/hr, 1,800 mL, TPNCONTINU OUS, Starting on Tue01/11/23 at 2100, Until Tue01/12/23 at 2058 [facility] methocarbam oL (ROBAXIN) tablet 1,000 mg 2022-02 20:00: 00 Yes 1000mg 1,000 mg, Oral, Q8H, First dose on Tue01/11/23 at 1400, Until Discontinu ed, Routine [facility] HYDROcodone -acetaminop hen (NORCO 5) 5-325 mg tablet 1 tablet 2022-02 17:49: 48 01-12 08:58 :10 No 1{tbl} 1 tablet, Oral, Q6HPRN, Starting on Tue01/11/23 at 1149, Until Tue01/12/23 at 0258, Routine, Pain (scale 7-10) [facility] levoFLOXaci n (LEVAQUIN) tablet 750 mg 2022-02 15:15: 00 01-13 17:10 :29 No 750mg 750 mg, Oral, Q24H ABX, 7 doses, First dose (after last modificati on) on Tue01/11/23 at 0915, Last dose on Tue01/17/23 at 0915, KATHERIN
Re ason for Anti-Infec tive: Documented Infection< br>Documen peter Infection Site: Abdominal< br>Duratio n of Therapy: 7 days [facility] pantoprazol e (PROTONIX) EC tablet 40 mg 2022-02 15:00: 00 Yes 40mg 40 mg, Oral, DAILY, First dose on Tue01/11/23 at 0900, Until Discontinu ed, Routine [facility] fluconazole (DIFLUCAN) tablet 400 mg 2022-02 15:00: 00 01-13 17:10 :29 No 400mg 400 mg, Oral, DAILY, 7 doses, First dose on Tue01/11/23 at 0900, Last dose on Tue01/17/23 at 0900, KATHERIN
Re ason for Anti-Infec tive: Documented Infection< br>Documen peter Infection Site: Abdominal< br>Duratio n of Therapy: 7 days [facility] octreotide (SANDOSTATI N) 500 mcg in NaCl 0.9% (NS) 100 mL infusion 2022-02 14:45: 00 01-17 15:32 :09 No 25ug/h 25 mcg/hr (5 mL/hr), IV Infusion, CONTINUOUS , Starting on Tue01/11/23 at 0845 [facility] metroNIDAZO LE (FLAGYL) tablet 500 mg 2022-02 14:00: 00 01-13 17:10 :29 No 500mg 500 mg, Oral, Q12H, 14 doses, First dose on Tue01/11/23 at 0800, Last dose on Tue01/17/23 at 2000, Routine
Reason for Anti-Infec tive: Documented Infection< br>Documen peter Infection Site: Abdominal< br>Duratio n of Therapy: 7 days [facility] zolpidem (AMBIEN) tablet 5 mg 2022-02 03:00: 00 Yes 5mg 5 mg, Oral, QHS, First dose on Tue01/10/23 at 2100, Until Discontinu ed, Routine [facility] Total Parenteral Nutrition Adult 2022-02 03:00: 00 01-12 02:59 :00 No at 75 mL/hr, 1,800 mL, TPNCONTINU OUS, Starting on Tue01/10/23 at 2100, Until Tue01/11/23 at 2058 [facility] amino acids 4.25%-elect rolytes-driss cium-dextro se 5% (CLINIMIX-E 4.25%/D5W SULF FREE) IV infusion 2,000 mL 2022-02 03:00: 00 01-11 02:59 :00 No 2000mL at 83 mL/hr, 2,000 mL, IV Infusion, TPNCONTINU OUS, Starting on Tue01/09/23 at 2100, Until Tue01/10/23 at 2058, Routine [facility] metroNIDAZO LE in NaCl (iso-os) (FLAGYL I.V.) RTU IV infusion 500 mg 2022-02 22:00: 00 01-11 13:33 :24 No 500mg 500 mg, IV Infusion, Q12H ABX, 11 doses, First dose (after last modificati on) on Tue01/09/23 at 1600, Last dose on Tue01/14/23 at 1600, Administer over 60 Minutes, 100 mL
Reas on for Anti-Infec tive: Documented Infection< br>Documen peter Infection Site: Abdominal< br>Duratio n of Therapy: 7 days [facility] methocarbam oL (ROBAXIN) injection 1,000 mg 2022-02 20:00: 00 01-11 13:35 :48 No 1000mg 1,000 mg, Intravenou s, Q8H, 9 doses, First dose on Tue01/09/23 at 1400, Last dose on Tue01/12/23 at 0600, Routine [facility] ceFEPIme (MAXIPIME) 2,000 mg in NaCl 0.9% (NS) 100 mL MINI-BAG 2022-02 17:45: 00 01-11 13:33 :24 No 2000mg 2,000 mg, IV Piggyback, Q8H ABX, 15 doses, First dose (after last modificati on) on Tue01/09/23 at 1145, Last dose on Tue01/14/23 at 0345, Administer over 4 Hours, 100 mL
Reas on for Anti-Infec tive: Documented Infection< br>Documen peter Infection Site: Abdominal< br>Duratio n of Therapy: 7 days [facility] acetaminoph en ADULT (OFIRMEV) injection 1,000 mg 2022-02 15:30: 00 01-09 17:59 :00 No 1000mg 1,000 mg, IV Infusion, at 400 mL/hr Administer over 15 Minutes, ONCE, 1 dose, On Tue01/09/23 at 0930, Routine
Indicatio n: Strict NPO and unable to tolerate oral medication s [facility] D5W 0.45% NaCl (1/2NS) 1 L + KCL 20 mEq 2022-02 15:15: 00 01-12 14:03 :22 No IV Infusion, at 40 mL/hr, CONTINUOUS , Starting on Tue01/09/23 at 0915, Until Tue01/12/23 at 0803, Routine [facility] lidocaine 1% (PF) (XYLOCAINE) injection 5 mL 2022-02 14:00: 00 01-10 21:15 :00 No 5mL 5 mL, Subcutaneo us, ONCE, 1 dose, On Tue01/09/23 at 0800, Routine [facility] NaCl 0.9% (NS) injection 10 mL 2022-02 13:55: 59 Yes 10mL 10 mL, Slow IV Push, PRN, Starting on Tue01/09/23 at 0755, Until Discontinu ed, Routine, line maintenanc e [facility] D5W 0.45% NaCl (1/2NS) 1 L + KCL 20 mEq 2022-02 13:30: 00 01-09 15:00 :12 No IV Infusion, at 125 mL/hr, CONTINUOUS , Starting on Tue01/09/23 at 0730, Until Tue01/09/23 at 0900, Routine [facility] potassium chloride in water (KCL) 20 mEq/100 mL RTU IVPB 20 mEq 2022-02 12:30: 00 01-09 16:18 :00 No 20meq 20 mEq, IV Piggyback, ONCE, 1 dose, On Tue01/09/23 at 0630, 100 mL [facility] lidocaine 1% (PF) (XYLOCAINE) injection 2022-02 20:18: 38 01-07 20:18 :38 No PRN, Starting on Tue01/07/23 at 1418, Until Tue01/07/23 at 1418, Routine, Intra-op [facility] midazolam (VERSED) injection 2022-02 20:16: 00 01-07 20:16 :00 No IV Push, PRN, Starting on Tue01/07/23 at 1416, Until Tue01/07/23 at 1416, Routine, Intra-op [facility] FENTanyl PF (SUBLIMAZE (PF)) injection 2022-02 20:15: 00 01-07 20:15 :00 No Slow IV Push, PRN, Starting on Tue01/07/23 at 1415, Until Tue01/07/23 at 1415, Routine, Intra-op [facility] magnesium sulfate in water 2 gram/50 mL (4 %) infusion 2 g 2022-02 13:45: 00 01-07 16:15 :00 No 2g 2 g, IV Piggyback, Administer over 60 Minutes, ONCE, 1 dose, On Tue01/07/23 at 0745, Routine [facility] melatonin (MELATIN) tablet 3 mg 2022-02 03:00: 00 Yes 3mg 3 mg, Oral, QHS, First dose (after last modificati on) on Tue01/06/23 at 2100, Until Discontinu ed, Routine [facility] acetaminoph en (TYLENOL) tablet 1,000 mg 2022-02 02:30: 00 01-09 14:32 :52 No 1000mg 1,000 mg, Oral, Q8H, First dose (after last modificati on) on Tue01/06/23 at 2030, Until Discontinu ed, Routine [facility] methocarbam oL (ROBAXIN) tablet 500 mg 2022-02 02:00: 00 01-09 14:32 :52 No 500mg 500 mg, Oral, QID, First dose on Tue01/06/23 at 2000, Until Discontinu ed, Routine [facility] simethicone (GAS RELIEF (SIMETHICON E)) chewable tablet 80 mg 2022-02 00:00: 00 Yes 80mg 80 mg, Oral, PC+HS, First dose on Tue01/06/23 at 1800, Until Discontinu ed, Routine [facility] pantoprazol e (PROTONIX) injection 40 mg 2022-02 22:30: 00 01-11 13:35 :48 No 40mg 40 mg, Slow IV Push, Q24H, First dose on Tue01/06/23 at 1630, Until Discontinu ed [facility] methocarbam oL (ROBAXIN) injection 1,000 mg 2022-02 20:00: 00 01-07 00:14 :03 No 1000mg 1,000 mg, Intravenou s, Q8H, First dose on Tue01/06/23 at 1400, Until Discontinu ed, Routine [facility] acetaminoph en ADULT (OFIRMEV) injection 1,000 mg 2022-02 20:00: 00 01-07 00:14 :03 No 1000mg 1,000 mg, IV Infusion, at 400 mL/hr Administer over 15 Minutes, Q8H, 3 doses, First dose on Tue01/06/23 at 1400, Last dose on Tue01/07/23 at 0600, Routine
Indicatio n: Strict NPO and unable to tolerate oral medication s [facility] morpHINE (4 mg/mL) injection 4 mg 2022-02 16:34: 12 01-13 04:25 :55 No 4mg 4 mg, Slow IV Push, Q4HPRN, Starting on Tue01/06/23 at 1034, Until Tue01/12/23 at 2225, Routine, Pain (scale 7-10) [facility] tamsulosin (FLOMAX) capsule 0.4 mg 2022-02 15:00: 00 Yes .4mg 0.4 mg, Oral, DAILY, First dose (after last modificati on) on Tue01/06/23 at 0900, Until Discontinu ed, Routine [facility] simethicone (GAS RELIEF (SIMETHICON E)) chewable tablet 80 mg 2022-02 15:00: 00 01-06 16:34 :46 No 80mg 80 mg, Oral, PC+HS, First dose (after last modificati on) on Tue01/06/23 at 0900, Until Discontinu ed, Routine [facility] pantoprazol e (PROTONIX) EC tablet 40 mg 2022-02 15:00: 00 01-06 16:34 :46 No 40mg 40 mg, Oral, DAILY, First dose (after last modificati on) on Tue01/06/23 at 0900, Until Discontinu ed, Routine [facility] mineral oil (MINERAL OIL EXTRA HEAVY) oral liquid 30 mL 2022-02 15:00: 00 01-06 16:34 :46 No 30mL 30 mL, Oral, DAILY, First dose (after last modificati on) on Tue01/06/23 at 0900, Until Discontinu ed, Routine [facility] aspirin chewable tablet 81 mg 2022-02 15:00: 00 01-06 16:34 :46 No 81mg 81 mg, Oral, DAILY, First dose (after last modificati on) on Tue01/06/23 at 0900, Until Discontinu ed, Routine [facility] metroNIDAZO LE in NaCl (iso-os) (FLAGYL I.V.) RTU IV infusion 500 mg 2022-02 14:45: 00 01-09 17:42 :18 No 500mg 500 mg, IV Infusion, Q8H ABX, 21 doses, First dose on Tue01/06/23 at 0845, Last dose on Tue01/13/23 at 0045, Administer over 60 Minutes, 100 mL
Reas on for Anti-Infec tive: Documented Infection< br>Documen peter Infection Site: Abdominal< br>Duratio n of Therapy: 7 days [facility] gabapentin (NEURONTIN) capsule 300 mg 2022-02 14:00: 00 01-06 16:34 :46 No 300mg 300 mg, Oral, TID, First dose (after last modificati on) on Tue01/06/23 at 0800, Until Discontinu ed, Routine [facility] morpHINE (2 mg/mL) injection 2 mg 2022-02 12:30: 00 01-06 11:49 :00 No 2mg 2 mg, Slow IV Push, ONCE, 1 dose, On Tue01/06/23 at 0630, Routine [facility] alum-mag hydroxide-s imeth (MAG-AL PLUS) 200-200-20 mg/5 mL suspension 30 mL 2022-02 12:00: 00 01-06 16:34 :46 No 30mL 30 mL, Oral, Q8H, First dose (after last modificati on) on Tue01/06/23 at 0600, Until Discontinu ed, Routine [facility] acetaminoph en (TYLENOL) tablet 1,000 mg 2022-02 12:00: 00 01-06 16:34 :46 No 1000mg 1,000 mg, Oral, Q8H, First dose (after last modificati on) on Tue01/06/23 at 0600, Until Discontinu ed, Routine [facility] iohexol (OMNIPAQUE 350 BULK-100 mL) injection 80 mL 2022-02 09:26: 00 01-06 09:26 :00 No [id number] 80mL 80 mL, Intravenou s, ONCE, 1 dose, On Tue01/06/23 at 0345, Routine [facility] iohexol (OMNIPAQUE 350 BULK) 25 mL 2022-02 08:30: 00 01-06 08:20 :00 No [id number] 25mL 25 mL, Oral, ONCE, 1 dose, On Tue01/06/23 at 0230, Routine [facility] enoxaparin (LOVENOX) injection 40 mg 2022-02 07:30: 00 Yes 40mg 40 mg, Subcutaneo us, Q24H, First dose (after last modificati on) on Tue01/06/23 at 0130, Until Discontinu ed, Routine [facility] fluconazole (DIFLUCAN) Piggyback 200 mg 2022-02 07:30: 00 01-11 13:45 :10 No 200mg at 100 mL/hr, IV Piggyback, Q24H ABX, First dose (after last modificati on) on Tue01/06/23 at 0130, Until Discontinu ed, KATHERIN
Do Not Refrigerat e.
[facility] D5W 0.45% NaCl (1/2NS) IV infusion 1,000 mL 2022-02 07:30: 00 01-09 11:40 :17 No 1000mL at 125 mL/hr, 1,000 mL, IV Infusion, CONTINUOUS , Starting on Tue01/06/23 at 0130, Until 01/09/23 at 0540, Routine [facility] oxyCODONE immediate release tablet 5 mg 2022-02 07:26: 55 01-06 16:34 :46 No 5mg 5 mg, Oral, Q6HPRN, Starting on Tue01/06/23 at 0126, Until Tue01/06/23 at 1034, Routine, Pain (scale 4-6)
Fa culty member approving Restricted medication : [facility] ondansetron (ZOFRAN (PF)) injection 4 mg 2022-02 07:26: 54 Yes 4mg 4 mg, Slow IV Push, Q4HPRN, Starting on Tue01/06/23 at 0126, Until Discontinu ed, Routine, Nausea and Vomiting (N/V) [facility] naloxone (NARCAN) injection 0.1 mg 2022-02 07:26: 47 Yes .1mg 0.1 mg, Slow IV Push, SEE-INSTRU CTIONS, Starting on Dorothea 01/06/23 at 0126, Until Discontinu ed, Routine [facility] metroNIDAZO LE in NaCl (iso-os) (FLAGYL I.V.) RTU IV infusion 500 mg 2022-02 05:45: 00 01-06 09:00 :00 No 500mg 500 mg, IV Infusion, ONCE NOW, 1 dose, On Tue01/05/23 at 2345, Administer over 60 Minutes, 100 mL
Reas on for Anti-Infec tive: Documented Infection< br>Documen peter Infection Site: Abdominal< br>Duratio n of Therapy: 7 days [facility] ondansetron (ZOFRAN (PF)) injection 4 mg 2022-02 05:00: 00 01-06 05:27 :00 No 4mg 4 mg, Slow IV Push, ONCE, 1 dose, On Tue01/05/23 at 2300, KATHERIN [facility] morpHINE (4 mg/mL) injection 4 mg 2022-02 05:00: 00 01-06 05:27 :00 No 4mg 4 mg, Slow IV Push, ONCE, 1 dose, On Tue01/05/23 at 2300, STAT [facility] piperacilli n-tazobacta m (ZOSYN) 3.375 g in NaCl 0.9% (NS) 100 mL MINI-BAG 2022-02 05:00: 00 01-06 07:42 :00 No 3.375g 3.375 g, IV Piggyback, ONCE, 1 dose, On Tue01/05/23 at 2300, Administer over 30 Minutes, 100 mL
Reas on for Anti-Infec tive: Documented Infection< br>Documen peter Infection Site: Abdominal< br>Duratio n of Therapy: 7 days [facility] aspirin 81 mg chewable tablet 2022-02 00:00: 00 Yes [id number] 81mg Take 1 tablet by mouth in the morning. [facility] tamsulosin 0.4 mg 24 hr capsule 2022-02 00:00: 00 Yes [id number] .4mg Take 1 capsule by mouth in the morning. [facility] aspirin 81 mg chewable tablet 2022-02 00:00: 00 Yes [id number] 81mg Take 1 tablet by mouth in the morning. [facility] tamsulosin 0.4 mg 24 hr capsule 2022-02 00:00: 00 Yes [id number] .4mg Take 1 capsule by mouth in the morning. [facility] aspirin 81 mg chewable tablet 2022-02 00:00: 00 Yes [id number] 81mg Take 1 tablet by mouth in the morning. [facility] tamsulosin 0.4 mg 24 hr capsule 2022-02 00:00: 00 Yes [id number] .4mg Take 1 capsule by mouth in the morning. [facility] aspirin 81 mg chewable tablet 2022-02 00:00: 00 Yes [id number] 81mg Take 1 tablet by mouth in the morning. [facility] tamsulosin 0.4 mg 24 hr capsule 2022-02 00:00: 00 Yes [id number] .4mg Take 1 capsule by mouth in the morning. [facility] aspirin 81 mg chewable tablet 2022-02 00:00: 00 Yes [id number] 81mg Take 1 tablet by mouth in the morning. [facility] tamsulosin 0.4 mg 24 hr capsule 2022-02 00:00: 00 Yes [id number] .4mg Take 1 capsule by mouth in the morning. [facility] aspirin 81 mg chewable tablet 2022-02 00:00: 00 Yes [id number] 81mg Take 1 tablet by mouth in the morning. [facility] tamsulosin 0.4 mg 24 hr capsule 2022-02 00:00: 00 Yes [id number] .4mg Take 1 capsule by mouth in the morning. [facility] aspirin 81 mg chewable tablet 2022-02 00:00: 00 Yes [id number] 81mg Take 1 tablet by mouth in the morning. [facility] tamsulosin 0.4 mg 24 hr capsule 2022-02 00:00: 00 Yes [id number] .4mg Take 1 capsule by mouth in the morning. [facility] aspirin 81 mg chewable tablet 2022-02 00:00: 00 Yes [id number] 81mg Take 1 tablet by mouth in the morning. [facility] tamsulosin 0.4 mg 24 hr capsule 2022-02 00:00: 00 Yes [id number] .4mg Take 1 capsule by mouth in the morning. [facility] aspirin 81 mg chewable tablet 2022-02 00:00: 00 Yes [id number] 81mg Take 1 tablet by mouth in the morning. [facility] tamsulosin 0.4 mg 24 hr capsule 2022-02 00:00: 00 Yes [id number] .4mg Take 1 capsule by mouth in the morning. [facility] aspirin 81 mg chewable tablet 2022-02 00:00: 00 Yes [id number] 81mg Take 1 tablet by mouth in the morning. [facility] tamsulosin 0.4 mg 24 hr capsule 2022-02 00:00: 00 Yes [id number] .4mg Take 1 capsule by mouth in the morning. [facility] aspirin 81 mg chewable tablet 2022-02 00:00: 00 Yes [id number] 81mg Take 1 tablet by mouth in the morning. [facility] aspirin 81 mg chewable tablet 2022-02 00:00: 00 Yes [id number] 81mg Take 1 tablet by mouth in the morning. [facility] aspirin 81 mg chewable tablet 2022-02 00:00: 00 Yes [id number] 81mg Take 1 tablet by mouth in the morning. [facility] aspirin 81 mg chewable tablet 2022-02 00:00: 00 Yes [id number] 81mg Take 1 tablet by mouth in the morning. [facility] aspirin 81 mg chewable tablet 2022-02 00:00: 00 Yes [id number] 81mg Take 1 tablet by mouth in the morning. [facility] aspirin 81 mg chewable tablet 2022-02 00:00: 00 Yes [id number] 81mg Take 1 tablet by mouth in the morning. [facility] aspirin 81 mg chewable tablet 2022-02 00:00: 00 Yes [id number] 81mg Take 1 tablet by mouth in the morning. [facility] aspirin 81 mg chewable tablet 2022-02 00:00: 00 01-04 00:00 :00 No [id number] 81mg Take 1 tablet by mouth in the morning for 90 days. [facility] tamsulosin 0.4 mg 24 hr capsule 2022-02 00:00: 00 01-04 00:00 :00 No [id number] .4mg Take 1 capsule by mouth in the morning for 90 days. [facility] aspirin 81 mg chewable tablet 2022-02 00:00: 00 01-04 00:00 :00 No [id number] 81mg Take 1 tablet by mouth in the morning for 90 days. [facility] tamsulosin 0.4 mg 24 hr capsule 2022-02 00:00: 00 01-04 00:00 :00 No [id number] .4mg Take 1 capsule by mouth in the morning for 90 days. [facility] morpHINE (2 mg/mL) injection 2 mg 2022-02 04:45: 00 01-04 03:57 :00 No 2mg 2 mg, Slow IV Push, ONCE, 1 dose, On Tue01/03/23 at 2245, Routine [facility] oxyCODONE-a cetaminophe n 5-325 mg per tablet 2022-02 00:00: 00 Yes [id number] 1{tbl} Take 1 tablet by mouth every 6 (six) hours as needed for Pain (scale 7-10). Indication s: acute pain [facility] polyethylen e glycol 3350 17 gram/dose powder 2022-02 00:00: 00 Yes [id number] 17g Take 17 g by mouth in the morning. [facility] valACYclovi r (VALTREX) 500 mg tablet 2022-02 00:00: 00 Yes [id number] 500mg Take 1 tablet by mouth in the morning and 1 tablet in the evening. [facility] acetaminoph en 500 mg tablet 2022-02 00:00: 00 Yes [id number] 1000mg Take 2 tablets by mouth every 8 (eight) hours. [facility] gabapentin 300 mg capsule 2022-02 00:00: 00 Yes [id number] 300mg Take 1 capsule by mouth in the morning and 1 capsule at noon and 1 capsule in the evening. [facility] simethicone 80 mg chewable tablet 2022-02 00:00: 00 Yes [id number] 160mg Take 2 tablets by mouth after meals and at bedtime. [facility] cephALEXin 250 mg capsule 2022-02 00:00: 00 Yes [id number] 500mg Take 2 capsules by mouth every 6 (six) hours. [facility] fluconazole 200 mg tablet 2022-02 00:00: 00 Yes [id number] 400mg Take 2 tablets by mouth in the morning. [facility] ibuprofen 800 mg tablet 2022-02 00:00: 00 Yes [id number] 800mg Take 1 tablet by mouth every 8 (eight) hours as needed for Pain (scale 1-3) or Pain (scale 4-6). [facility] metroNIDAZO LE (FLAGYL) 500 mg tablet 2022-02 00:00: 00 Yes [id number] 500mg Take 1 tablet by mouth in the morning and 1 tablet in the evening. [facility] oxyCODONE-a cetaminophe n 5-325 mg per tablet 2022-02 00:00: 00 Yes [id number] 1{tbl} Take 1 tablet by mouth every 6 (six) hours as needed for Pain (scale 7-10). Indication s: acute pain [facility] polyethylen e glycol 3350 17 gram/dose powder 2022-02 00:00: 00 Yes [id number] 17g Take 17 g by mouth in the morning. [facility] valACYclovi r (VALTREX) 500 mg tablet 2022-02 00:00: 00 Yes [id number] 500mg Take 1 tablet by mouth in the morning and 1 tablet in the evening. [facility] acetaminoph en 500 mg tablet 2022-02 00:00: 00 Yes [id number] 1000mg Take 2 tablets by mouth every 8 (eight) hours. [facility] gabapentin 300 mg capsule 2022-02 00:00: 00 Yes [id number] 300mg Take 1 capsule by mouth in the morning and 1 capsule at noon and 1 capsule in the evening. [facility] simethicone 80 mg chewable tablet 2022-02 00:00: 00 Yes [id number] 160mg Take 2 tablets by mouth after meals and at bedtime. [facility] cephALEXin 250 mg capsule 2022-02 00:00: 00 Yes [id number] 500mg Take 2 capsules by mouth every 6 (six) hours. [facility] fluconazole 200 mg tablet 2022-02 00:00: 00 Yes [id number] 400mg Take 2 tablets by mouth in the morning. [facility] ibuprofen 800 mg tablet 2022-02 00:00: 00 Yes [id number] 800mg Take 1 tablet by mouth every 8 (eight) hours as needed for Pain (scale 1-3) or Pain (scale 4-6). [facility] metroNIDAZO LE (FLAGYL) 500 mg tablet 2022-02 00:00: 00 Yes [id number] 500mg Take 1 tablet by mouth in the morning and 1 tablet in the evening. [facility] oxyCODONE-a cetaminophe n 5-325 mg per tablet 2022-02 00:00: 00 Yes [id number] 1{tbl} Take 1 tablet by mouth every 6 (six) hours as needed for Pain (scale 7-10). Indication s: acute pain [facility] polyethylen e glycol 3350 17 gram/dose powder 2022-02 00:00: 00 Yes [id number] 17g Take 17 g by mouth in the morning. [facility] valACYclovi r (VALTREX) 500 mg tablet 2022-02 00:00: 00 Yes [id number] 500mg Take 1 tablet by mouth in the morning and 1 tablet in the evening. [facility] acetaminoph en 500 mg tablet 2022-02 00:00: 00 Yes [id number] 1000mg Take 2 tablets by mouth every 8 (eight) hours. [facility] gabapentin 300 mg capsule 2022-02 00:00: 00 Yes [id number] 300mg Take 1 capsule by mouth in the morning and 1 capsule at noon and 1 capsule in the evening. [facility] simethicone 80 mg chewable tablet 2022-02 00:00: 00 Yes [id number] 160mg Take 2 tablets by mouth after meals and at bedtime. [facility] cephALEXin 250 mg capsule 2022-02 00:00: 00 Yes [id number] 500mg Take 2 capsules by mouth every 6 (six) hours. [facility] fluconazole 200 mg tablet 2022-02 00:00: 00 Yes [id number] 400mg Take 2 tablets by mouth in the morning. [facility] ibuprofen 800 mg tablet 2022-02 00:00: 00 Yes [id number] 800mg Take 1 tablet by mouth every 8 (eight) hours as needed for Pain (scale 1-3) or Pain (scale 4-6). [facility] metroNIDAZO LE (FLAGYL) 500 mg tablet 2022-02 00:00: 00 Yes [id number] 500mg Take 1 tablet by mouth in the morning and 1 tablet in the evening. [facility] oxyCODONE-a cetaminophe n 5-325 mg per tablet 2022-02 00:00: 00 Yes [id number] 1{tbl} Take 1 tablet by mouth every 6 (six) hours as needed for Pain (scale 7-10). Indication s: acute pain [facility] polyethylen e glycol 3350 17 gram/dose powder 2022-02 00:00: 00 Yes [id number] 17g Take 17 g by mouth in the morning. [facility] valACYclovi r (VALTREX) 500 mg tablet 2022-02 00:00: 00 Yes [id number] 500mg Take 1 tablet by mouth in the morning and 1 tablet in the evening. [facility] acetaminoph en 500 mg tablet 2022-02 00:00: 00 Yes [id number] 1000mg Take 2 tablets by mouth every 8 (eight) hours. [facility] gabapentin 300 mg capsule 2022-02 00:00: 00 Yes [id number] 300mg Take 1 capsule by mouth in the morning and 1 capsule at noon and 1 capsule in the evening. [facility] simethicone 80 mg chewable tablet 2022-02 00:00: 00 Yes [id number] 160mg Take 2 tablets by mouth after meals and at bedtime. [facility] cephALEXin 250 mg capsule 2022-02 00:00: 00 Yes [id number] 500mg Take 2 capsules by mouth every 6 (six) hours. [facility] fluconazole 200 mg tablet 2022-02 00:00: 00 Yes [id number] 400mg Take 2 tablets by mouth in the morning. [facility] ibuprofen 800 mg tablet 2022-02 00:00: 00 Yes [id number] 800mg Take 1 tablet by mouth every 8 (eight) hours as needed for Pain (scale 1-3) or Pain (scale 4-6). [facility] metroNIDAZO LE (FLAGYL) 500 mg tablet 2022-02 00:00: 00 Yes [id number] 500mg Take 1 tablet by mouth in the morning and 1 tablet in the evening. [facility] oxyCODONE-a cetaminophe n 5-325 mg per tablet 2022-02 00:00: 00 Yes [id number] 1{tbl} Take 1 tablet by mouth every 6 (six) hours as needed for Pain (scale 7-10). Indication s: acute pain [facility] polyethylen e glycol 3350 17 gram/dose powder 2022-02 00:00: 00 Yes [id number] 17g Take 17 g by mouth in the morning. [facility] valACYclovi r (VALTREX) 500 mg tablet 2022-02 00:00: 00 Yes [id number] 500mg Take 1 tablet by mouth in the morning and 1 tablet in the evening. [facility] acetaminoph en 500 mg tablet 2022-02 00:00: 00 Yes [id number] 1000mg Take 2 tablets by mouth every 8 (eight) hours. [facility] gabapentin 300 mg capsule 2022-02 00:00: 00 Yes [id number] 300mg Take 1 capsule by mouth in the morning and 1 capsule at noon and 1 capsule in the evening. [facility] simethicone 80 mg chewable tablet 2022-02 00:00: 00 Yes [id number] 160mg Take 2 tablets by mouth after meals and at bedtime. [facility] cephALEXin 250 mg capsule 2022-02 00:00: 00 Yes [id number] 500mg Take 2 capsules by mouth every 6 (six) hours. [facility] fluconazole 200 mg tablet 2022-02 00:00: 00 Yes [id number] 400mg Take 2 tablets by mouth in the morning. [facility] ibuprofen 800 mg tablet 2022-02 00:00: 00 Yes [id number] 800mg Take 1 tablet by mouth every 8 (eight) hours as needed for Pain (scale 1-3) or Pain (scale 4-6). [facility] polyethylen e glycol 3350 17 gram/dose powder 2022-02 00:00: 00 Yes [id number] 17g Take 17 g by mouth in the morning. [facility] valACYclovi r (VALTREX) 500 mg tablet 2022-02 00:00: 00 Yes [id number] 500mg Take 1 tablet by mouth in the morning and 1 tablet in the evening. [facility] acetaminoph en 500 mg tablet 2022-02 00:00: 00 Yes [id number] 1000mg Take 2 tablets by mouth every 8 (eight) hours. [facility] gabapentin 300 mg capsule 2022-02 00:00: 00 Yes [id number] 300mg Take 1 capsule by mouth in the morning and 1 capsule at noon and 1 capsule in the evening. [facility] simethicone 80 mg chewable tablet 2022-02 00:00: 00 Yes [id number] 160mg Take 2 tablets by mouth after meals and at bedtime. [facility] cephALEXin 250 mg capsule 2022-02 00:00: 00 Yes [id number] 500mg Take 2 capsules by mouth every 6 (six) hours. [facility] fluconazole 200 mg tablet 2022-02 00:00: 00 Yes [id number] 400mg Take 2 tablets by mouth in the morning. [facility] ibuprofen 800 mg tablet 2022-02 00:00: 00 Yes [id number] 800mg Take 1 tablet by mouth every 8 (eight) hours as needed for Pain (scale 1-3) or Pain (scale 4-6). [facility] polyethylen e glycol 3350 17 gram/dose powder 2022-02 00:00: 00 Yes [id number] 17g Take 17 g by mouth in the morning. [facility] valACYclovi r (VALTREX) 500 mg tablet 2022-02 00:00: 00 Yes [id number] 500mg Take 1 tablet by mouth in the morning and 1 tablet in the evening. [facility] acetaminoph en 500 mg tablet 2022-02 00:00: 00 Yes [id number] 1000mg Take 2 tablets by mouth every 8 (eight) hours. [facility] gabapentin 300 mg capsule 2022-02 00:00: 00 Yes [id number] 300mg Take 1 capsule by mouth in the morning and 1 capsule at noon and 1 capsule in the evening. [facility] simethicone 80 mg chewable tablet 2022-02 00:00: 00 Yes [id number] 160mg Take 2 tablets by mouth after meals and at bedtime. [facility] cephALEXin 250 mg capsule 2022-02 00:00: 00 Yes [id number] 500mg Take 2 capsules by mouth every 6 (six) hours. [facility] fluconazole 200 mg tablet 2022-02 00:00: 00 Yes [id number] 400mg Take 2 tablets by mouth in the morning. [facility] ibuprofen 800 mg tablet 2022-02 00:00: 00 Yes [id number] 800mg Take 1 tablet by mouth every 8 (eight) hours as needed for Pain (scale 1-3) or Pain (scale 4-6). [facility] polyethylen e glycol 3350 17 gram/dose powder 2022-02 00:00: 00 Yes [id number] 17g Take 17 g by mouth in the morning. [facility] valACYclovi r (VALTREX) 500 mg tablet 2022-02 00:00: 00 Yes [id number] 500mg Take 1 tablet by mouth in the morning and 1 tablet in the evening. [facility] acetaminoph en 500 mg tablet 2022-02 00:00: 00 Yes [id number] 1000mg Take 2 tablets by mouth every 8 (eight) hours. [facility] gabapentin 300 mg capsule 2022-02 00:00: 00 Yes [id number] 300mg Take 1 capsule by mouth in the morning and 1 capsule at noon and 1 capsule in the evening. [facility] cephALEXin 250 mg capsule 2022-02 00:00: 00 Yes [id number] 500mg Take 2 capsules by mouth every 6 (six) hours. [facility] fluconazole 200 mg tablet 2022-02 00:00: 00 Yes [id number] 400mg Take 2 tablets by mouth in the morning. [facility] ibuprofen 800 mg tablet 2022-02 00:00: 00 Yes [id number] 800mg Take 1 tablet by mouth every 8 (eight) hours as needed for Pain (scale 1-3) or Pain (scale 4-6). [facility] polyethylen e glycol 3350 17 gram/dose powder 2022-02 00:00: 00 Yes [id number] 17g Take 17 g by mouth in the morning. [facility] acetaminoph en 500 mg tablet 2022-02 00:00: 00 Yes [id number] 1000mg Take 2 tablets by mouth every 8 (eight) hours. [facility] ibuprofen 800 mg tablet 2022-02 00:00: 00 Yes [id number] 800mg Take 1 tablet by mouth every 8 (eight) hours as needed for Pain (scale 1-3) or Pain (scale 4-6). [facility] acetaminoph en 500 mg tablet 2022-02 00:00: 00 Yes [id number] 1000mg Take 2 tablets by mouth every 8 (eight) hours. [facility] ibuprofen 800 mg tablet 2022-02 00:00: 00 Yes [id number] 800mg Take 1 tablet by mouth every 8 (eight) hours as needed for Pain (scale 1-3) or Pain (scale 4-6). [facility] valACYclovi r (VALTREX) 500 mg tablet 2022-02 00:00: 00 Yes [id number] 500mg Take 1 tablet by mouth in the morning and 1 tablet in the evening. [facility] acetaminoph en 500 mg tablet 2022-02 00:00: 00 Yes [id number] 1000mg Take 2 tablets by mouth every 8 (eight) hours. [facility] gabapentin 300 mg capsule 2022-02 00:00: 00 Yes [id number] 300mg Take 1 capsule by mouth in the morning and 1 capsule at noon and 1 capsule in the evening. [facility] simethicone 80 mg chewable tablet 2022-02 00:00: 00 Yes [id number] 160mg Take 2 tablets by mouth after meals and at bedtime. [facility] cephALEXin 250 mg capsule 2022-02 00:00: 00 Yes [id number] 500mg Take 2 capsules by mouth every 6 (six) hours. [facility] fluconazole 200 mg tablet 2022-02 00:00: 00 Yes [id number] 400mg Take 2 tablets by mouth in the morning. [facility] ibuprofen 800 mg tablet 2022-02 00:00: 00 Yes [id number] 800mg Take 1 tablet by mouth every 8 (eight) hours as needed for Pain (scale 1-3) or Pain (scale 4-6). [facility] metroNIDAZO LE (FLAGYL) 500 mg tablet 2022-02 00:00: 00 Yes [id number] 500mg Take 1 tablet by mouth in the morning and 1 tablet in the evening. [facility] oxyCODONE-a cetaminophe n 5-325 mg per tablet 2022-02 00:00: 00 Yes [id number] 1{tbl} Take 1 tablet by mouth every 6 (six) hours as needed for Pain (scale 7-10). Indication s: acute pain [facility] polyethylen e glycol 3350 17 gram/dose powder 2022-02 00:00: 00 Yes [id number] 17g Take 17 g by mouth in the morning. [facility] valACYclovi r (VALTREX) 500 mg tablet 2022-02 00:00: 00 Yes [id number] 500mg Take 1 tablet by mouth in the morning and 1 tablet in the evening. [facility] acetaminoph en 500 mg tablet 2022-02 00:00: 00 Yes [id number] 1000mg Take 2 tablets by mouth every 8 (eight) hours. [facility] gabapentin 300 mg capsule 2022-02 00:00: 00 Yes [id number] 300mg Take 1 capsule by mouth in the morning and 1 capsule at noon and 1 capsule in the evening. [facility] simethicone 80 mg chewable tablet 2022-02 00:00: 00 Yes [id number] 160mg Take 2 tablets by mouth after meals and at bedtime. [facility] cephALEXin 250 mg capsule 2022-02 00:00: 00 Yes [id number] 500mg Take 2 capsules by mouth every 6 (six) hours. [facility] fluconazole 200 mg tablet 2022-02 00:00: 00 Yes [id number] 400mg Take 2 tablets by mouth in the morning. [facility] ibuprofen 800 mg tablet 2022-02 00:00: 00 Yes [id number] 800mg Take 1 tablet by mouth every 8 (eight) hours as needed for Pain (scale 1-3) or Pain (scale 4-6). [facility] metroNIDAZO LE (FLAGYL) 500 mg tablet 2022-02 00:00: 00 Yes [id number] 500mg Take 1 tablet by mouth in the morning and 1 tablet in the evening. [facility] acetaminoph en 500 mg tablet 2022-02 00:00: 00 02-10 00:00 :00 No [id number] 1000mg Take 2 tablets by mouth every 8 (eight) hours. [facility] ibuprofen 800 mg tablet 2022-02 00:00: 00 02-10 00:00 :00 No [id number] 800mg Take 1 tablet by mouth every 8 (eight) hours as needed for Pain (scale 1-3) or Pain (scale 4-6). [facility] acetaminoph en 500 mg tablet 2022-02 00:00: 00 02-10 00:00 :00 No [id number] 1000mg Take 2 tablets by mouth every 8 (eight) hours. [facility] ibuprofen 800 mg tablet 2022-02 00:00: 00 02-10 00:00 :00 No [id number] 800mg Take 1 tablet by mouth every 8 (eight) hours as needed for Pain (scale 1-3) or Pain (scale 4-6). [facility] gabapentin 300 mg capsule 2022-02 00:00: 00 01-28 00:00 :00 No [id number] 300mg Take 1 capsule by mouth in the morning and 1 capsule at noon and 1 capsule in the evening. [facility] gabapentin 300 mg capsule 2022-02 00:00: 00 01-28 00:00 :00 No [id number] 300mg Take 1 capsule by mouth in the morning and 1 capsule at noon and 1 capsule in the evening. [facility] simethicone 80 mg chewable tablet 2022-02 00:00: 00 01-19 00:00 :00 No [id number] 160mg Take 2 tablets by mouth after meals and at bedtime. [facility] metroNIDAZO LE (FLAGYL) 500 mg tablet 2022-02 00:00: 00 01-14 00:00 :00 No [id number] 500mg Take 1 tablet by mouth in the morning and 1 tablet in the evening. [facility] oxyCODONE-a cetaminophe n 5-325 mg per tablet 2022-02 00:00: 00 01-14 00:00 :00 No [id number] 1{tbl} Take 1 tablet by mouth every 6 (six) hours as needed for Pain (scale 7-10). Indication s: acute pain [facility] acetaminoph en 500 mg tablet 2022-02 00:00: 00 01-04 00:00 :00 No [id number] 1000mg Take 2 tablets by mouth every 8 (eight) hours for 3 days. [facility] gabapentin 300 mg capsule 2022-02 00:00: 00 01-04 00:00 :00 No [id number] 300mg Take 1 capsule by mouth in the morning and 1 capsule at noon and 1 capsule in the evening. Do all this for 7 days. [facility] metroNIDAZO LE (FLAGYL) 500 mg tablet 2022-02 00:00: 00 01-04 00:00 :00 No [id number] 500mg Take 1 tablet by mouth in the morning and 1 tablet in the evening. [facility] ibuprofen 800 mg tablet 2022-02 00:00: 00 01-04 00:00 :00 No [id number] 800mg Take 1 tablet by mouth every 8 (eight) hours as needed for Pain (scale 1-3) or Pain (scale 4-6). [facility] oxyCODONE-a cetaminophe n 5-325 mg per tablet 2022-02 00:00: 00 01-04 00:00 :00 No [id number] 1{tbl} Take 1 tablet by mouth every 6 (six) hours as needed for Pain (scale 7-10). Indication s: acute pain [facility] polyethylen e glycol 3350 17 gram/dose powder 2022-02 00:00: 00 01-04 00:00 :00 No [id number] 17g Take 17 g by mouth in the morning. [facility] fluconazole 200 mg tablet 2022-02 00:00: 00 01-04 00:00 :00 No [id number] 400mg Take 2 tablets by mouth in the morning for 7 days. [facility] cephALEXin 250 mg capsule 2022-02 00:00: 00 01-04 00:00 :00 No [id number] 500mg Take 2 capsules by mouth every 6 (six) hours for 7 days. [facility] acetaminoph en 500 mg tablet 2022-02 00:00: 00 01-04 00:00 :00 No [id number] 1000mg Take 2 tablets by mouth every 8 (eight) hours for 3 days. [facility] gabapentin 300 mg capsule 2022-02 00:00: 00 01-04 00:00 :00 No [id number] 300mg Take 1 capsule by mouth in the morning and 1 capsule at noon and 1 capsule in the evening. Do all this for 7 days. [facility] metroNIDAZO LE (FLAGYL) 500 mg tablet 2022-02 00:00: 00 01-04 00:00 :00 No [id number] 500mg Take 1 tablet by mouth in the morning and 1 tablet in the evening. [facility] ibuprofen 800 mg tablet 2022-02 00:00: 00 01-04 00:00 :00 No [id number] 800mg Take 1 tablet by mouth every 8 (eight) hours as needed for Pain (scale 1-3) or Pain (scale 4-6). [facility] oxyCODONE-a cetaminophe n 5-325 mg per tablet 2022-02 00:00: 00 01-04 00:00 :00 No [id number] 1{tbl} Take 1 tablet by mouth every 6 (six) hours as needed for Pain (scale 7-10). Indication s: acute pain [facility] polyethylen e glycol 3350 17 gram/dose powder 2022-02 00:00: 00 01-04 00:00 :00 No [id number] 17g Take 17 g by mouth in the morning. [facility] fluconazole 200 mg tablet 2022-02 00:00: 00 01-04 00:00 :00 No [id number] 400mg Take 2 tablets by mouth in the morning for 7 days. [facility] cephALEXin 250 mg capsule 2022-02 00:00: 00 01-04 00:00 :00 No [id number] 500mg Take 2 capsules by mouth every 6 (six) hours for 7 days. [facility] iopamidol (ISOVUE 370-500 mL) injection 80 mL 2022-02 00:30: 00 01-03 00:30 :00 No [id number] 80mL 80 mL, Intravenou s, ONCE, 1 dose, On 01/02/23 at 1830, Routine [facility] acetaminoph en (TYLENOL) tablet 1,000 mg 2022-02 20:00: 00 Yes 1000mg 1,000 mg, Oral, Q8H, First dose (after last modificati on) on Tue01/02/23 at 1400, Until Discontinu ed, Routine [facility] mineral oil (MINERAL OIL EXTRA HEAVY) oral liquid 30 mL 2022-02 15:00: 00 Yes 30mL 30 mL, Oral, DAILY, First dose on 01/02/23 at 0900, Until Discontinu ed, Routine [facility] bisacodyL (DULCOLAX) suppository 10 mg 2022-02 14:45: 00 01-02 17:59 :00 No 10mg 10 mg, Rectal, Q2H, 2 doses, First dose on 01/02/23 at 0845, Last dose on 01/02/23 at 1000, Routine [facility] morpHINE (2 mg/mL) injection 4 mg 2022-02 14:40: 11 01-03 14:41 :36 No 4mg 4 mg, Slow IV Push, Q4HPRN, Starting on 01/02/23 at 0840, Until 01/03/23 at 0841, Routine, Pain (scale 7-10) [facility] ceFEPIme (MAXIPIME) 2,000 mg in NaCl 0.9% (NS) 100 mL MINI-BAG 2022-02 23:00: 00 01-08 22:59 :00 Yes 2000mg 2,000 mg, IV Piggyback, Q8H ABX, 21 doses, First dose on 01/01/23 at 1700, Last dose on 01/08/23 at 0900, Administer over 4 Hours, 100 mL
Reas on for Anti-Infec tive: Documented Infection< br>Documen peter Infection Site: Abdominal< br>Duratio n of Therapy: 7 days [facility] alum-mag hydroxide-s imeth (MAG-AL PLUS) 200-200-20 mg/5 mL suspension 30 mL 2022-02 20:00: 00 Yes 30mL 30 mL, Oral, Q8H, First dose (after last modificati on) on 01/01/23 at 1400, Until Discontinu ed, Routine [facility] ceFEPIme (MAXIPIME) 2,000 mg in NaCl 0.9% (NS) 100 mL MINI-BAG 2022-02 15:15: 00 01-01 15:42 :00 No 2000mg 2,000 mg, IV Piggyback, ONCE, 1 dose, On 01/01/23 at 0915, Administer over 30 Minutes, 100 mL
Reas on for Anti-Infec tive: Documented Infection< br>Documen peter Infection Site: Abdominal< br>Duratio n of Therapy: 7 days [facility] meropenem (MERREM) 1,000 mg in NaCl 0.9% (NS) 100 mL MINI-BAG 2022-02 16:30: 00 01-01 14:16 :41 No 1000mg 1,000 mg, IV Piggyback, Q8H ABX, 18 doses, First dose (after last modificati on) on Tue12/31/22 at 1030, Last dose on Tue01/06/23 at 0230, Administer over 3 Hours, 100 mL
Rest ricted use approved by: OLIVIA MENCHACA< br>Reason for Anti-Infec tive: Documented Infection< br>Documen peter Infection Site: Abdominal< br>Duratio n of Therapy: 10 days [facility] morpHINE (2 mg/mL) injection 2 mg 2022-02 14:09: 35 01-02 14:40 :24 No 2mg 2 mg, Slow IV Push, Q4HPRN, Starting on Tue12/31/22 at 0809, Until Tue01/02/23 at 0840, Routine, Pain (scale 7-10) [facility] alteplase (CATHFLO ACTIVASE) injection 2 mg 2022-02 14:00: 00 12-31 17:20 :00 No 2mg 2 mg, INTRA-CATH ETER, ONCE, 1 dose, On Tue12/31/22 at 0800, Routine [facility] aspirin chewable tablet 81 mg 2022-02 15:00: 00 Yes 81mg 81 mg, Oral, DAILY, First dose on Tue12/30/22 at 0900, Until Discontinu ed, Routine [facility] Total Parenteral Nutrition Adult 2022-02 03:00: 00 12-31 02:59 :00 No at 75 mL/hr, 1,800 mL, TPNCONTINU OUS, Starting on Tue12/29/22 at 2100, Until Tue12/30/22 at 2059 [facility] meropenem (MERREM) 1,000 mg in NaCl 0.9% (NS) 100 mL MINI-BAG 2022-02 00:17: 00 12-31 12:57 :17 No 1000mg 1,000 mg, IV Piggyback, Q8H ABX, 6 doses, First dose (after last modificati on) on Tue12/29/22 at 1830, Last dose on Tue12/31/22 at 1030, Administer over 3 Hours, 100 mL
Rest ricted use approved by: OLIVIA MENCHACA< br>Reason for Anti-Infec tive: Documented Infection< br>Documen peter Infection Site: Abdominal< br>Duratio n of Therapy: 10 days [facility] tamsulosin (FLOMAX) capsule 0.4 mg 2022-02 15:00: 00 Yes .4mg 0.4 mg, Oral, DAILY, First dose on Tue12/29/22 at 0900, Until Discontinu ed, Routine [facility] acetaminoph en (TYLENOL) tablet 650 mg 2022-02 09:54: 34 01-02 14:40 :24 No 650mg 650 mg, Oral, Q6HPRN, Starting on Tue12/29/22 at 0354, Until Tue01/02/23 at 0840, Routine, Pain (scale 4-6) [facility] methocarbam oL (ROBAXIN) injection 1,000 mg 2022-02 04:15: 00 12-29 03:42 :00 No 1000mg 1,000 mg, Intravenou s, ONCE, 1 dose, On Tue12/28/22 at 2215, Routine [facility] Total Parenteral Nutrition Adult 2022-02 03:00: 00 12-30 02:59 :00 No at 75 mL/hr, 1,800 mL, TPNCONTINU OUS, Starting on Tue12/28/22 at 2100, Until Tue12/29/22 at 2059 [facility] furosemide (LASIX) injection 20 mg 2022-02 14:15: 00 12-28 13:55 :00 No 20mg 20 mg, Slow IV Push, ONCE, 1 dose, On Tue12/28/22 at 0815, Routine [facility] acetaminoph en ADULT (OFIRMEV) injection 1,000 mg 2022-02 04:00: 00 12-28 20:29 :00 No 1000mg 1,000 mg, IV Infusion, at 400 mL/hr Administer over 15 Minutes, Q8H, 3 doses, First dose on Tue12/27/22 at 2200, Last dose on Tue12/28/22 at 1400, Routine
Indicatio n: Strict NPO and unable to tolerate oral medication s [facility] Total Parenteral Nutrition Adult 2022-02 03:00: 00 12-29 02:59 :00 No at 70.84 mL/hr, 2,000 mL, TPNCONTINU OUS, Starting on Tue12/27/22 at 2100, Until Tue12/28/22 at 205 [facility] Total Parenteral Nutrition Adult 2022-02 03:00: 00 12-28 02:59 :00 No at 70.84 mL/hr, 2,000 mL, TPNCONTINU OUS, Starting on Tue12/26/22 at 2100, Until Tue12/27/22 at 2058 [facility] alum-mag hydroxide-s imeth (MAG-AL PLUS) 200-200-20 mg/5 mL suspension 30 mL 2022-02 02:30: 29 01-01 15:47 :46 No 30mL 30 mL, Oral, Q6HPRN, Starting on Tue12/26/22 at 2030, Until 01/01/23 at 0947, Routine, Indigestio n [facility] meropenem (MERREM) 1,000 mg in NaCl 0.9% (NS) 100 mL MINI-BAG 2022-02 23:00: 00 12-29 22:37 :48 No 1000mg 1,000 mg, IV Piggyback, Q8H ABX, 21 doses, First dose (after last modificati on) on Tue12/26/22 at 1700, Last dose on Tue01/02/23 at 0900, Administer over 3 Hours, 100 mL
Rest ricted use approved by: [facility]
Reason for Anti-Infec tive: Documented Infection< br>Documen peter Infection Site: Abdominal< br>Duratio n of Therapy: 7 days [facility] HYDROmorpho ne (DILAUDID) injection 1 mg 2022-02 22:30: 00 12-30 17:56 :04 No 1mg 1 mg, Slow IV Push, Q4HPRN, Starting on 12/26/22 at 1630, Until Dorothea 12/30/22 at 1156, Routine, Pain (scale 7-10) [facility] oxyCODONE immediate release tablet 5 mg 2022-02 22:26: 13 Yes 5mg 5 mg, Oral, Q6HPRN, Starting on 12/26/22 at 1626, Until Discontinu ed, Routine, Pain (scale 4-6)
Fa culty member approving Restricted medication : SURADC [facility] iopamidol (ISOVUE 370-500 mL) injection 90 mL 2022-02 15:45: 00 12-26 16:00 :00 No [id number] 90mL 90 mL, Intravenou s, ONCE, 1 dose, On 12/26/22 at 1000, Routine [facility] vancomycin (VANCOCIN) 1,500 mg in NaCl 0.9% (NS) 500 mL VIAL-MATE IV piggyback 2022-02 10:00: 00 01-01 14:16 :41 No 1500mg 1,500 mg, IV Piggyback, Q8H ABX, 37 doses, First dose (after last modificati on) on 12/26/22 at 0400, Last dose on Tue01/07/23 at 0530, Administer over 90 Minutes, 500 mL
Reas on for Anti-Infec tive: Documented Infection< br>Documen peter Infection Site: Abdominal< br>Duratio n of Therapy: 14 days [facility] acetaminoph en (TYLENOL) tablet 650 mg 2022-02 05:03: 10 12-27 21:10 :38 No 650mg 650 mg, Oral, Q4HPRN, Starting on 12/25/22 at 2303, Until 12/27/22 at 1510, Routine, Pain (scale 1-3), Temp > 38 C [facility] Total Parenteral Nutrition Adult 2022-02 03:00: 00 12-27 02:59 :00 No at 70.84 mL/hr, 2,000 mL, TPNCONTINU OUS, Starting on 12/25/22 at 2100, Until 12/26/22 at 205 [facility] alum-mag hydroxide-s imeth (MAG-AL PLUS) 200-200-20 mg/5 mL suspension 30 mL 2022-02 02:59: 04 12-26 19:32 :34 No 30mL 30 mL, Oral, Q6HPRN, Starting on 12/25/22 at 2059, Until 12/26/22 at 1332, Routine, Indigestio n [facility] methocarbam oL (ROBAXIN) injection 1,000 mg 2022-02 20:00: 00 12-28 13:54 :00 No 1000mg 1,000 mg, Intravenou s, Q8H, 9 doses, First dose (after last reorder) on 12/25/22 at 1400, Last dose on Tue12/28/22 at 0600, Routine [facility] famotidine (PEPCID (PF)) injection 20 mg 2022-02 19:53: 29 Yes 20mg 20 mg, Slow IV Push, [id number], Starting on 12/25/22 at 1353, Until Discontinu ed, Routine, Heartburn [facility] iopamidol (ISOVUE 370-500 mL) injection 80 mL 2022-02 18:10: 00 12-25 18:30 :00 No [id number] 80mL 80 mL, Intravenou s, ONCE, 1 dose, On 12/25/22 at 1230, Routine [facility] iopamidol (ISOVUE 370-500 mL) injection 100 mL 2022-02 16:15: 00 12-25 18:16 :00 No [id number] 100mL 100 mL, Oral, ONCE, 1 dose, On 12/25/22 at 1015, Routine [facility] Total Parenteral Nutrition Adult 2022-02 03:00: 00 12-26 02:59 :00 No at 70.84 mL/hr, 2,000 mL, TPNCONTINU OUS, Starting on Tue12/24/22 at 2100, Until Tue12/25/22 at 2059 [facility] HYDROmorpho ne 10 mg/50 mL NS (DILAUDID) PROSTHETIC TECHNICIAN RTU 2022-02 21:00: 00 12-26 20:59 :00 No Patient Bolus Dose: 0.04 mg
Lock out Interval: 6 Minutes
Basal Rate: 0 mg/hr
F our Hour Dose Limit: 1.6 mg
IV Infusion, 50 mL, CONTINUOUS , Starting on Tue12/24/22 at 1500, Until Tue12/26/22 at 1459 [facility] acetaminoph en ADULT (OFIRMEV) injection 1,000 mg 2022-02 20:00: 00 12-25 11:41 :00 No 1000mg 1,000 mg, IV Infusion, at 400 mL/hr Administer over 15 Minutes, Q8H, 3 doses, First dose (after last reorder) on Tue12/24/22 at 1400, Last dose on Tue12/25/22 at 0600, Routine
Indicatio n: Strict NPO and unable to tolerate oral medication s [facility] vancomycin 1,250 mg in NaCl 0.9% (NS) 250 mL VIAL-MATE IV piggyback 2022-02 16:30: 00 12-26 05:15 :01 No 15mg/kg 1,250 mg (rounded from 1,230 mg = 15 mg/kg ?82 kg), IV Piggyback, Q8H ABX, 42 doses, First dose on Tue12/24/22 at 1030, Last dose on Tue01/07/23 at 0400, Administer over 90 Minutes, 250 mL
Reas on for Anti-Infec tive: Documented Infection< br>Documen peter Infection Site: Abdominal< br>Duratio n of Therapy: 14 days [facility] pantoprazol e (PROTONIX) EC tablet 40 mg 2022-02 15:00: 00 Yes 40mg 40 mg, Oral, DAILY, First dose on Tue12/24/22 at 0900, Until Discontinu ed, Routine [facility] magnesium sulfate in water 4 gram/50 mL (8 %) IV Piggyback 4 g 2022-02 14:00: 00 12-24 16:31 :00 No 4g 4 g, IV Piggyback, at 25 mL/hr Administer over 120 Minutes, ONCE, 1 dose, On Tue12/24/22 at 0800, Routine [facility] melatonin (MELATIN) tablet 3 mg 2022-02 03:00: 00 Yes 3mg 3 mg, Oral, QHS, First dose on Tue12/23/22 at 2100, Until Discontinu ed, Routine [facility] Total Parenteral Nutrition Adult 2022-02 03:00: 00 12-25 02:59 :00 No at 70.84 mL/hr, 2,000 mL, TPNCONTINU OUS, Starting on Tue12/23/22 at 2100, Until Tue12/24/22 at 205 [facility] fluconazole (DIFLUCAN) Piggyback 200 mg 2022-02 21:45: 00 Yes 200mg at 100 mL/hr, IV Piggyback, Q24H ABX, First dose on Tue12/23/22 at 1545, Until Discontinu ed, KATHERIN
Do Not Refrigerat e.
[facility] gabapentin (NEURONTIN) capsule 300 mg 2022-02 20:00: 00 Yes 300mg 300 mg, Oral, TID, First dose on Tue12/23/22 at 1400, Until Discontinu ed, Routine [facility] acetaminoph en ADULT (OFIRMEV) injection 1,000 mg 2022-02 20:00: 00 12-24 11:46 :00 No 1000mg 1,000 mg, IV Infusion, at 400 mL/hr Administer over 15 Minutes, Q8H, 3 doses, First dose (after last reorder) on Tue12/23/22 at 1400, Last dose on Tue12/24/22 at 0600, Routine
Indicatio n: Strict NPO and unable to tolerate oral medication s [facility] simethicone (GAS RELIEF (SIMETHICON E)) chewable tablet 80 mg 2022-02 19:00: 00 Yes 80mg 80 mg, Oral, PC+HS, First dose on Tue12/23/22 at 1300, Until Discontinu ed, Routine [facility] furosemide (LASIX) injection 40 mg 2022-02 18:15: 00 12-23 18:23 :00 No 40mg 40 mg, Slow IV Push, ONCE, 1 dose, On [place]othe[place] 12/23/22 at 1215, Routine [facility] diazePAM (VALIUM) injection 5 mg 2022-02 18:07: 59 Yes 5mg 5 mg, Intravenou s, Q6HPRN, Starting on Tue12/23/22 at 1207, Until Discontinu ed, Routine, Anxiety, sedation [facility] calcium gluconate 2 g in NaCl 100 mL (ISO-OSM) RTU IV infusion 2 g 2022-02 17:30: 00 12-23 19:12 :00 No 2g 2 g, IV Infusion, at 200 mL/hr Administer over 30 Minutes, ONCE, 1 dose, On Tue12/23/22 at 1130, Routine [facility] oxyCODONE immediate release tablet 5 mg 2022-02 16:28: 26 12-26 22:26 :36 No 5mg 5 mg, Oral, Q6HPRN, Starting on Tue12/23/22 at 1028, Until [place] 12/26/22 at 1626, Routine, Pain (scale 7-10)
F aculty member approving Restricted medication : [facility] HYDROcodone -acetaminop hen (NORCO 5) 5-325 mg tablet 1 tablet 2022-02 14:37: 34 12-23 16:28 :46 No 1{tbl} 1 tablet, Oral, Q4HPRN, Starting on Tue12/23/22 at 0837, Until [place] 12/23/22 at 1028, Routine, Pain (scale 4-6) [facility] lidocaine (LIDODERM) 5 % (700 mg/patch) patch 1 Patch 2022-02 14:15: 00 12-24 02:19 :00 No 1{patch } 1 Patch, Topical, Administer over 12 Hours, ONCE, 1 dose, On Tue12/23/22 at 0815, Routine [facility] enoxaparin (LOVENOX) injection 40 mg 2022-02 14:00: 00 Yes 40mg 40 mg, Subcutaneo us, Q24H, First dose (after last modificati on) on Tue12/23/22 at 0800, Until Discontinu ed, Routine [facility] potassium phosphate 30 mmol in NaCl 0.9% (NS) 500 mL piggyback 2022-02 13:45: 00 12-23 18:35 :00 No 30mmol 30 mmol, IV Piggyback, ONCE, 1 dose, On Tue12/23/22 at 0745, 500 mL [facility] magnesium sulfate in water 2 gram/50 mL (4 %) infusion 2 g 2022-02 13:45: 00 12-23 15:16 :00 No 2g 2 g, IV Piggyback, Administer over 60 Minutes, ONCE, 1 dose, On Tue12/23/22 at 0745, Routine [facility] Total Parenteral Nutrition Adult 2022-02 03:00: 00 12-24 02:59 :00 No at 83.3 mL/hr, 2,000 mL, TPNCONTINU OUS, Starting on Tue12/22/22 at 2100, Until Tue12/23/22 at 2059 [facility] meropenem (MERREM) 1,000 mg in NaCl 0.9% (NS) 100 mL MINI-BAG 2022-02 23:00: 00 12-26 22:27 :48 No 1000mg 1,000 mg, IV Piggyback, Q8H ABX, 15 doses, First dose on Tue12/22/22 at 1700, Last dose on Tue12/27/22 at 0900, Administer over 3 Hours, 100 mL
Rest ricted use approved by: [facility]
Reason for Anti-Infec tive: Documented Infection< br>Documen peter Infection Site: Abdominal< br>Duratio n of Therapy: 7 days [facility] HYDROmorpho ne (DILAUDID) 10 mg/50 mL 0.9% NaCl PROSTHETIC TECHNICIAN 2022-02 21:00: 00 12-24 14:14 :00 No Patient Bolus Dose: 0.04 mg
Lock out Interval: 6 Minutes
Basal Rate: 0 mg/hr
F our Hour Dose Limit: 3.2 mg
IV Infusion, 50 mL, CONTINUOUS , Starting on Tue12/22/22 at 1500, Until Tue12/24/22 at 0814 [facility] methocarbam oL (ROBAXIN) injection 1,000 mg 2022-02 20:00: 00 12-25 11:27 :00 No 1000mg 1,000 mg, Intravenou s, Q8H, 9 doses, First dose on Tue12/22/22 at 1400, Last dose on Tue12/25/22 at 0600, Routine [facility] acetaminoph en ADULT (OFIRMEV) injection 1,000 mg 2022-02 20:00: 00 12-23 11:31 :00 No 1000mg 1,000 mg, IV Infusion, at 400 mL/hr Administer over 15 Minutes, Q8H, 3 doses, First dose (after last reorder) on Tue12/22/22 at 1400, Last dose on Tue12/23/22 at 0600, Routine
Indicatio n: Strict NPO and unable to tolerate oral medication s [facility] iopamidol (ISOVUE 370-500 mL) injection 80 mL 2022-02 19:15: 00 12-22 19:11 :00 No [id number] 80mL 80 mL, Intravenou s, ONCE, 1 dose, On Tue12/22/22 at 1330, Routine [facility] potassium phosphate 30 mmol in NaCl 0.9% (NS) 500 mL piggyback 2022-02 15:15: 00 12-22 19:51 :00 No 30mmol 30 mmol, IV Piggyback, ONCE, 1 dose, On Tue12/22/22 at 0915, 500 mL [facility] meropenem (MERREM) 1,000 mg in NaCl 0.9% (NS) 100 mL MINI-BAG 2022-02 15:15: 00 12-22 19:54 :00 No 1000mg 1,000 mg, IV Piggyback, ONCE, 1 dose, On Tue12/22/22 at 0915, Administer over 240 Minutes, 100 mL
Rest ricted use approved by: [facility]
Reason for Anti-Infec tive: Documented Infection& lt;br>Docu mented Infection Site: Abdominal< br>Duratio n of Therapy: 7 days [facility] magnesium sulfate in water 4 gram/50 mL (8 %) IV Piggyback 4 g 2022-02 14:30: 00 12-22 16:08 :00 No 4g 4 g, IV Piggyback, at 25 mL/hr Administer over 120 Minutes, ONCE, 1 dose, On Tue12/22/22 at 0830, Routine [facility] HYDROmorpho ne (DILAUDID) 10 mg/50 mL 0.9% NaCl PROSTHETIC TECHNICIAN 2022-02 14:15: 00 12-22 20:32 :49 No Patient Bolus Dose: 0.04 mg
Lock out Interval: 6 Minutes
Basal Rate: 0 mg/hr
F our Hour Dose Limit: 2.4 mg
IV Infusion, 50 mL, CONTINUOUS , Starting on Tue12/22/22 at 0815, Until Tue12/22/22 at 1432 [facility] HYDROmorpho ne (DILAUDID) injection 2022-02 13:10: 43 12-26 22:26 :36 No Slow IV Push, Q8HPRN, Starting on Tue12/22/22 at 0710, Until Tue12/26/22 at 1626, Routine, Pain [facility] methocarbam oL (ROBAXIN) injection 500 mg 2022-02 12:30: 00 12-22 12:21 :00 No 500mg 500 mg, Intravenou s, ONCE, 1 dose, On Tue12/22/22 at 0630, Routine [facility] FENTanyl PF (SUBLIMAZE (PF)) injection 25 mcg 2022-02 10:00: 00 12-22 09:15 :00 No 25ug 25 mcg, Slow IV Push, ONCE, 1 dose, On Tue12/22/22 at 0400, Routine [facility] Total Parenteral Nutrition Adult 2022-02 03:00: 00 12-23 02:59 :00 No at 83.3 mL/hr, 2,000 mL, TPNCONTINU OUS, Starting on Tue12/21/22 at 2100, Until Tue12/22/22 at 2059 [facility] methocarbam oL (ROBAXIN) injection 500 mg 2022-02 02:30: 00 12-22 01:54 :00 No 500mg 500 mg, Intravenou s, ONCE, 1 dose, On Tue12/21/22 at 2030, Routine [facility] morpHINE 30 mg/30 mL (fixed dose) PROSTHETIC TECHNICIAN injection 2022-02 23:15: 00 12-22 13:13 :32 No Patient Bolus Dose: 0.5 mg
Lock out Interval: 12 Minutes
Basal Rate: 0 mg/hr
F our Hour Dose Limit: 10 mg
Intr avenous, 30 mL, CONTINUOUS , Starting on Tue12/21/22 at 1715, Until Tue12/22/22 at 0713 [facility] naloxone (NARCAN) injection 0.1 mg 2022-02 22:10: 36 Yes .1mg 0.1 mg, Slow IV Push, SEE-INSTRU CTIONS, Starting on Tue12/21/22 at 1610, Until Discontinu ed, Routine [facility] acetaminoph en ADULT (OFIRMEV) injection 1,000 mg 2022-02 20:00: 00 12-22 11:42 :00 No 1000mg 1,000 mg, IV Infusion, at 400 mL/hr Administer over 15 Minutes, Q8H, 3 doses, First dose (after last reorder) on Tue12/21/22 at 1400, Last dose on Tue12/22/22 at 0600, Routine
Indicatio n: Strict NPO and unable to tolerate oral medication s [facility] phenoL (SORE THROAT (PHENOL)) 1.4 % spray bottle 1 [place] 2022-02 18:03: 51 Yes 1{spray } 1 [place], Oral, PRN, Starting on Tue12/21/22 at 1203, Until Discontinu ed, Routine, Sore throat [facility] pantoprazol e (PROTONIX) injection 40 mg 2022-02 14:00: 00 12-23 16:30 :35 No 40mg 40 mg, Slow IV Push, Q12H, First dose (after last modificati on) on Tue12/21/22 at 0800, Until Discontinu ed [facility] ertapenem (INVANZ) 1,000 mg in NaCl 0.9% (NS) 100 mL MINI-BAG 2022-02 21:30: 00 12-22 14:25 :31 No 1000mg 1,000 mg, IV Piggyback, Q24H ABX, 14 doses, First dose on Tue12/20/22 at 1530, Last dose on Tue01/02/23 at 1530, Administer over 30 Minutes, 100 mL
Reas on for Anti-Infec tive: Documented Infection< br>Documen peter Infection Site: Blood
D uration of Therapy: 14 days
Re stricted use approved by: Documented ESBL infection or colonizati on in the past 3 months [facility] acetaminoph en ADULT (OFIRMEV) injection 1,000 mg 2022-02 20:00: 00 12-21 19:59 :00 No 1000mg 1,000 mg, IV Infusion, at 400 mL/hr Administer over 15 Minutes, Q8H, 3 doses, First dose (after last reorder) on Tue12/20/22 at 1400, Last dose on Tue12/21/22 at 0600, Routine
Indicatio n: Strict NPO and unable to tolerate oral medication s [facility] acetaminoph en ADULT (OFIRMEV) injection 1,000 mg 2022-02 20:00: 00 12-21 12:00 :00 No 1000mg 1,000 mg, IV Infusion, at 400 mL/hr Administer over 15 Minutes, Q8H, 3 doses, First dose (after last reorder) on Tue12/20/22 at 1400, Last dose on Tue12/21/22 at 0600, Routine
Indicatio n: Strict NPO and unable to tolerate oral medication s [facility] D5W 0.9% NaCl (NS) 1 L + KCL 20 mEq 2022-02 15:00: 00 Yes IV Infusion, at 125 mL/hr, CONTINUOUS , Starting on Tue12/20/22 at 0900, Until Discontinu ed, Routine [facility] enoxaparin (LOVENOX) injection 40 mg 2022-02 15:00: 00 Yes 40mg 40 mg, Subcutaneo us, Q24H, First dose on Tue12/20/22 at 0900, Until Discontinu ed, Routine [facility] D5W 0.9% NaCl (NS) 1 L + KCL 20 mEq 2022-02 15:00: 00 12-22 13:34 :26 No IV Infusion, at 125 mL/hr, CONTINUOUS , Starting on Tue12/20/22 at 0900, Until Tue12/22/22 at 0734, Routine [facility] enoxaparin (LOVENOX) injection 40 mg 2022-02 15:00: 00 12-21 13:50 :23 No 40mg 40 mg, Subcutaneo us, Q24H, First dose on Tue12/20/22 at 0900, Until Discontinu ed, Routine [facility] potassium chloride in water (KCL) 20 mEq/100 mL RTU IVPB 20 mEq 2022-02 14:00: 00 12-20 15:46 :00 No 20meq 20 mEq, IV Piggyback, Q1H, 2 doses, First dose on Tue12/20/22 at 0800, Last dose on Tue12/20/22 at 0900, 100 mL [facility] fentaNYL PF (SUBLIMAZE) STD 2,500 mcg in NaCl 0.9% (NS) 250 mL infusion RTU 2022-02 17:28: 54 Yes 25ug/h 25-200 mcg/hr (2.5-20 mL/hr), IV Infusion, TITRATE, CPOT/Pain Scale Goals Determined by Provider, Starting on Tue12/19/22 at 1128
In itiate infusion at 25 mcg/hr. Titrate by 25 mcg/hr every 1 minute to 15 minutes to identified goal pain and/or sedation scores. Maximum dose = 200 mcg/hr. If goal not maintained at maximum allowed dose, contact prescriber .
[facility] fentaNYL PF (SUBLIMAZE) STD 2,500 mcg in NaCl 0.9% (NS) 250 mL infusion RTU 2022-02 17:28: 54 12-21 22:13 :38 No 25ug/h 25-200 mcg/hr (2.5-20 mL/hr), IV Infusion, TITRATE, CPOT/Pain Scale Goals Determined by Provider, Starting on Tue12/19/22 at 1128
In itiate infusion at 25 mcg/hr. Titrate by 25 mcg/hr every 1 minute to 15 minutes to identified goal pain and/or sedation scores. Maximum dose = 200 mcg/hr. If goal not maintained at maximum allowed dose, contact prescriber .
[facility] dexMEDEtomi dine 200 mcg in 0.9 % NaCl 50 mL (PRECEDEX) RTU IV infusion 2022-02 17:26: 58 Yes .2ug/kg /h 0.2-1.5 mcg/kg/hr ?81 kg (4.05-30.3 75 mL/hr, rounded to 4.05-30.38 mL/hr), IV Infusion, TITRATE, Sedation-R ASS score (0 to -1), Starting on Tue12/19/22 at 1126
In itiate infusion at 0.2 mcg/kg/hr and titrate by 0.1 mcg/kg/hr every 30 minutes to goal sedation score. Maximum dose = 1.5 mcg/kg/hr. If goal not maintained at maximum allowed dose, contact prescriber .
[facility] dexMEDEtomi dine 200 mcg in 0.9 % NaCl 50 mL (PRECEDEX) RTU IV infusion 2022-02 17:26: 58 12-21 22:10 :11 No .2ug/kg /h 0.2-1.5 mcg/kg/hr ?81 kg (4.05-30.3 75 mL/hr, rounded to 4.05-30.38 mL/hr), IV Infusion, TITRATE, Sedation-R ASS score (0 to -1), Starting on Tue12/19/22 at 1126
In itiate infusion at 0.2 mcg/kg/hr and titrate by 0.1 mcg/kg/hr every 30 minutes to goal sedation score. Maximum dose = 1.5 mcg/kg/hr. If goal not maintained at maximum allowed dose, contact prescriber .
[facility] pantoprazol e (PROTONIX) injection 40 mg 2022-02 15:00: 00 Yes 40mg 40 mg, Slow IV Push, DAILY, First dose on Tue12/19/22 at 0900, Until Discontinu ed [facility] pantoprazol e (PROTONIX) injection 40 mg 2022-02 15:00: 00 12-21 13:50 :23 No 40mg 40 mg, Slow IV Push, DAILY, First dose on Tue12/19/22 at 0900, Until Discontinu ed [facility] heparin (porcine) injection 5,000 Units 2022-02 12:00: 00 12-20 13:53 :28 No 5000U 5,000 Units, Subcutaneo us, Q8H, First dose on Tue12/19/22 at 0600, Until Discontinu ed, Routine [facility] magnesium sulfate in water 4 gram/50 mL (8 %) IV Piggyback 4 g 2022-02 06:30: 00 12-19 08:29 :00 No 4g 4 g, IV Piggyback, at 25 mL/hr Administer over 120 Minutes, ONCE, 1 dose, On 12/19/22 at 0030, Routine [facility] acetaminoph en ADULT (OFIRMEV) injection 1,000 mg 2022-02 04:00: 00 12-19 20:36 :00 No 1000mg 1,000 mg, IV Infusion, at 400 mL/hr Administer over 15 Minutes, Q8H, 3 doses, First dose (after last modificati on) on 12/18/22 at 2200, Last dose on 12/19/22 at 1400, Routine
Indicatio n: Strict NPO and unable to tolerate oral medication s [facility] piperacilli n-tazobacta m (ZOSYN) 3.375 g in NaCl 0.9% (NS) 100 mL MINI-BAG 2022-02 03:15: 00 01-02 03:14 :00 No 3.375g 3.375 g, IV Piggyback, Q8H ABX, 42 doses, First dose on [facility] 12/18/22 at 2115, Last dose on [facility] 01/01/23 at 1315, Administer over 4 Hours, 100 mL
Reas on for Anti-Infec tive: Documented Infection< br>Documen peter Infection Site: Abdominal< br>Duratio n of Therapy: 14 days [facility] piperacilli n-tazobacta m (ZOSYN) 3.375 g in NaCl 0.9% (NS) 100 mL MINI-BAG 2022-02 03:15: 00 12-20 20:28 :03 No 3.375g 3.375 g, IV Piggyback, Q8H ABX, 42 doses, First dose on 12/18/22 at 2115, Last dose on 01/01/23 at 1315, Administer over 4 Hours, 100 mL
Reas on for Anti-Infec tive: Documented Infection< br>Documen peter Infection Site: Abdominal< br>Duratio n of Therapy: 14 days [facility] NaCl 0.9% (NS) bolus infusion 1,000 mL 2022-02 01:30: 00 12-19 01:26 :55 No 1000mL at 999 mL/hr, 1,000 mL, IV Piggyback, ONCE, 1 dose, On 12/18/22 at 1930, STAT [facility] albumin (ALBUMINAR 25%) 25 % injection 25 g 2022-02 01:15: 00 12-19 00:40 :00 No 25g 25 g, IV Infusion, ONCE, 1 dose, On 12/18/22 at 1915, 100 mL
Elisa cation: NON-APPROV ED INDICATION - PHARMACY WILL CALL ORDERING PROVIDER<b r>Specific Indication : Septic shock with peritoniti s due to small bowel perforatio n
Facul ty Requesting Approval: TOYA MAJOR [facility] NORepinephr ine 4 mg in 0.9% NaCl 250 mL infusion RTU 2022-02 01:00: 31 Yes .05ug/k g/min 0.05-1.5 mcg/kg/min ?79.4 kg (14.8875-4 46.625 mL/hr, rounded to 14.89-446. 63 mL/hr), IV Infusion, TITRATE, MAP Goal > or = 65 mmHg, Starting on 12/18/22 at 1900
In itiate titration at 0.05 mcg/kg/min . &nb sp;Increas e by 0.01 mcg/kg/min every 30 seconds to 5 minutes as needed to reach and maintain goal blood pressure.& nbsp;&nbsp ;Maximum dose = 1.5 mcg/kg/min .&nbsp ; If goal not maintained at maximum allowed dose, contact prescriber .
[facility] NORepinephr ine 4 mg in 0.9% NaCl 250 mL infusion RTU 2022-02 01:00: 31 12-20 20:51 :19 No .05ug/k g/min 0.05-1.5 mcg/kg/min ?79.4 kg (14.8875-4 46.625 mL/hr, rounded to 14.89-446. 63 mL/hr), IV Infusion, TITRATE, MAP Goal > or = 65 mmHg, Starting on 11/11/23 at 1900
In itiate titration at 0.05 mcg/kg/min . &nb sp;Increas e by 0.01 mcg/kg/min every 30 seconds to 5 minutes as needed to reach and maintain goal blood pressure.& nbsp;&nbsp ;Maximum dose = 1.5 mcg/kg/min .&nbsp ; If goal not maintained at maximum allowed dose, contact prescriber .
[facility] 50mg in NaCl 0.9% (NS) 50 mL infusion RTU 2022-02 00:38: 36 12-19 16:27 :47 No 1mg/h 1-10 mg/hr (1-10 mL/hr), IV Infusion, TITRATE, Sedation-R ASS score (0 to -1), Starting on 12/18/22 at 1838
In itiate infusion at 1 mg/hr and titrate by 1 mg/hr every 3 minutes to 10 minutes to goal sedation score. Maximum dose = 10 mg/hr.&nbs p; If goal not maintained at maximum allowed dose, contact prescriber .
[facility] naloxone (NARCAN) injection 0.1 mg 2022-02 23:34: 59 Yes .1mg 0.1 mg, Slow IV Push, SEE-INSTRU CTIONS, Starting on 12/18/22 at 1734, Until Discontinu ed, Routine [facility] sodium chloride 0.9 % irrigation solution 2022-02 21:48: 00 Yes PRN, Starting on 12/18/22 at 1548, Until Discontinu ed, Intra-op [facility] sodium chloride 0.9 % irrigation solution 2022-02 21:48: 00 Yes PRN, Starting on 12/18/22 at 1548, Until Discontinu ed, Intra-op [facility] methocarbam oL (ROBAXIN) injection 1,000 mg 2022-02 20:00: 00 12-19 00:28 :53 No 1000mg 1,000 mg, Intravenou s, Q8H, First dose on 12/18/22 at 1400, Until Discontinu ed, Routine [facility] acetaminoph en ADULT (OFIRMEV) injection 1,000 mg 2022-02 20:00: 00 12-18 23:38 :04 No 1000mg 1,000 mg, IV Infusion, at 400 mL/hr Administer over 15 Minutes, Q8H, 3 doses, First dose on 12/18/22 at 1400, Last dose on 12/19/22 at 0600, Routine
Indicatio n: Strict NPO and unable to tolerate oral medication s [facility] piperacilli n-tazobacta m (ZOSYN) 3.375 g in NaCl 0.9% (NS) 100 mL MINI-BAG 2022-02 19:30: 00 12-18 20:06 :00 No 3.375g 3.375 g, IV Piggyback, ONCE, 1 dose, On 12/18/22 at 1330, Administer over 30 Minutes, 100 mL
Reas on for Anti-Infec tive: Documented Infection< br>Documen peter Infection Site: Abdominal< br>Duratio n of Therapy: 14 days [facility] iopamidol (ISOVUE 370-500 mL) injection 100 mL 2022-02 19:00: 00 12-18 19:00 :00 No [id number] 100mL 100 mL, Intravenou s, ONCE, 1 dose, On 12/18/22 at 1300, Routine [facility] HYDROmorpho ne (DILAUDID) injection 0.2 mg 2022-02 18:56: 51 12-18 23:38 :04 No .2mg 0.2 mg, Slow IV Push, Q4HPRN, Starting on 12/18/22 at 1256, Until 12/18/22 at 1738, Routine, Pain (scale 4-6)
Us e approved by (Faculty): GENERAL SURGERY
General surgeon approving: berlin Sow [facility] furosemide (LASIX) injection 20 mg 2022-02 18:00: 00 12-18 15:59 :09 No 20mg 20 mg, Slow IV Push, Q6H, First dose on 12/18/22 at 1200, Until Discontinu ed, Routine [facility] FENTanyl PF (SUBLIMAZE (PF)) injection 50 mcg 2022-02 15:30: 00 12-18 14:49 :00 No 50ug 50 mcg, Slow IV Push, ONCE, 1 dose, On 12/18/22 at 0930, STAT [facility] NaCl 0.9% (NS) bolus infusion 500 mL 2022-02 12:23: 00 12-18 14:00 :00 No 500mL at 999 mL/hr, 500 mL, IV Infusion, ONCE, 1 dose, On 12/18/22 at 0630, STAT [facility] NaCl 0.9% (NS) bolus infusion 500 mL 2022-02 06:30: 00 12-18 05:49 :00 No 500mL at 999 mL/hr, 500 mL, IV Piggyback, ONCE, 1 dose, On 12/18/22 at 0030, STAT [facility] metroNIDAZO LE (FLAGYL) tablet 500 mg 2022-02 06:00: 00 12-18 18:38 :50 No 500mg 500 mg, Oral, Q12H, 6 doses, First dose on 12/18/22 at 0000, Last dose on Tue12/20/22 at 0800, Routine
Reason for Anti-Infec tive: Surgical Prophylaxi s
Surgi driss Prophylaxi s: Abdominal< br>Duratio n of therapy: within 24 hours of surgery [facility] ketorolac (TORADOL) injection 30 mg 2022-02 04:00: 00 12-18 16:47 :00 No 30mg 30 mg, Slow IV Push, Q6H, 3 doses, First dose on Tue12/17/22 at 2200, Last dose on 12/18/22 at 0600, Routine [facility] NaCl 0.9% (NS) IV infusion 1,000 mL 2022-02 23:47: 00 12-18 12:24 :09 No 1000mL at 125 mL/hr, IV Infusion, CONTINUOUS , Starting on Tue12/17/22 at 1800, Until Tue12/18/22 at 0624, Routine [facility] lactated ringers IV infusion 1,000 mL 2022-02 23:00: 00 12-20 13:54 :23 No 1000mL at 125 mL/hr, 1,000 mL, IV Infusion, CONTINUOUS , Starting on Tue12/17/22 at 1700, Until Tue12/20/22 at 0754, Routine [facility] ketorolac (TORADOL) injection 30 mg 2022-02 22:45: 00 12-17 22:02 :00 No 30mg 30 mg, Slow IV Push, ONCE, 1 dose, On Tue12/17/22 at 1645, Routine [facility] lactated ringers IV infusion 500 mL 2022-02 21:55: 00 12-17 21:57 :00 No 500mL at 999 mL/hr, 500 mL, Intravenou s, ONCE, 1 dose, On Tue12/17/22 at 1600, Routine [facility] polyethylen e glycol 3350 powder 17 g 2022-02 16:45: 00 12-19 14:59 :00 No 17g 17 g, Oral, DAILY, 2 doses, First dose on Tue12/17/22 at 1045, Last dose on Tue12/18/22 at 0900, Routine [facility] polyethylen e glycol 3350 powder 17 g 2022-02 16:45: 00 12-18 23:39 :59 No 17g 17 g, Oral, DAILY, 2 doses, First dose on Tue12/17/22 at 1045, Last dose on Tue12/18/22 at 0900, Routine [facility] FENTanyl PF (SUBLIMAZE (PF)) injection 100 mcg 2022-02 09:45: 00 12-17 09:04 :00 No 100ug 100 mcg, Slow IV Push, ONCE, 1 dose, On Tue12/17/22 at 0345, Routine [facility] FENTanyl PF (SUBLIMAZE (PF)) injection 100 mcg 2022-02 09:45: 00 12-17 09:04 :00 No 100ug 100 mcg, Slow IV Push, ONCE, 1 dose, On Tue12/17/22 at 0345, Routine [facility] docusate (COLACE) capsule 100 mg 2022-02 02:00: 00 Yes 100mg 100 mg, Oral, Q12H, First dose on [place] 12/16/22 at 1999, Until Discontinu ed, Routine [facility] docusate (COLACE) capsule 100 mg 2022-02 02:00: 00 12-19 00:28 :53 No 100mg 100 mg, Oral, Q12H, First dose on Tue12/16/22 at 1999, Until Discontinu ed, Routine [facility] FENTanyl PF (SUBLIMAZE (PF)) injection 50 mcg 2022-02 22:00: 00 12-17 04:11 :00 No 50ug 50 mcg, Slow IV Push, ONCE, 1 dose, On Tue12/16/22 at 1600, STAT [facility] FENTanyl PF (SUBLIMAZE (PF)) injection 50 mcg 2022-02 22:00: 00 12-17 04:11 :00 No 50ug 50 mcg, Slow IV Push, ONCE, 1 dose, On Tue12/16/22 at 1600, STAT [facility] FENTanyl PF (SUBLIMAZE (PF)) injection 25 mcg 2022-02 19:45: 00 12-16 20:00 :00 No 25ug 25 mcg, Slow IV Push, ONCE, 1 dose, On Dorothea 12/16/22 at 1345, Routine [facility] FENTanyl PF (SUBLIMAZE (PF)) injection 25 mcg 2022-02 19:45: 00 12-16 20:00 :00 No 25ug 25 mcg, Slow IV Push, ONCE, 1 dose, On Dorothea 12/16/22 at 1345, Routine [facility] simethicone (GAS RELIEF (SIMETHICON E)) chewable tablet 160 mg 2022-02 19:00: 00 Yes 160mg 160 mg, Oral, PC+HS, First dose on Dorothea 12/16/22 at 1300, Until Discontinu ed, Routine [facility] simethicone (GAS RELIEF (SIMETHICON E)) chewable tablet 160 mg 2022-02 19:00: 00 12-19 00:28 :53 No 160mg 160 mg, Oral, PC+HS, First dose on Dorothea 12/16/22 at 1300, Until Discontinu ed, Routine [facility] ketorolac (TORADOL) injection 30 mg 2022-02 18:00: 00 12-17 11:35 :00 No 30mg 30 mg, Slow IV Push, Q6H, 4 doses, First dose on Tue12/16/22 at 1200, Last dose on Tue12/17/22 at 0600, Routine [facility] ketorolac (TORADOL) injection 30 mg 2022-02 18:00: 00 12-17 11:35 :00 No 30mg 30 mg, Slow IV Push, Q6H, 4 doses, First dose on Tue12/16/22 at 1200, Last dose on Tue12/17/22 at 0600, Routine [facility] lactated ringers IV infusion 500 mL 2022-02 17:15: 00 Yes 500mL at 50 mL/hr, 500 mL, IV Infusion, CONTINUOUS , Starting on Dorothea 12/16/22 at 1115, Until Discontinu ed, Routine, PACU [facility] FENTanyl PF (SUBLIMAZE (PF)) injection 25 mcg 2022-02 17:09: 21 12-16 17:59 :10 No 25ug 25 mcg, Slow IV Push, Q5MIN PRN, 4 doses, Starting on Dorothea 12/16/22 at 1109, Until Dorothea 12/16/22 at 1159, Routine, Pain (scale 4-6), PACU [facility] FENTanyl PF (SUBLIMAZE (PF)) injection 25 mcg 2022-02 17:09: 21 12-16 17:59 :10 No 25ug 25 mcg, Slow IV Push, Q5MIN PRN, 4 doses, Starting on Dorothea 12/16/22 at 1109, Until Dorothea 12/16/22 at 1159, Routine, Pain (scale 4-6), PACU [facility] lactated ringers IV infusion 1,000 mL 2022-02 16:30: 00 Yes 1000mL at 125 mL/hr, 1,000 mL, IV Infusion, CONTINUOUS , Starting on Dorothea 12/16/22 at 1030, Until Discontinu ed, Routine [facility] lactated ringers IV infusion 1,000 mL 2022-02 16:30: 00 12-18 16:03 :28 No 1000mL at 125 mL/hr, 1,000 mL, IV Infusion, CONTINUOUS , Starting on Dorothea 12/16/22 at 1030, Until 12/18/22 at 1003, Routine [facility] ondansetron (ZOFRAN (PF)) injection 4 mg 2022-02 16:29: 31 Yes 4mg 4 mg, Slow IV Push, Q4HPRN, Starting on Dorothea 12/16/22 at 1029, Until Discontinu ed, Routine, Nausea and Vomiting (N/V) [facility] ondansetron (ZOFRAN (PF)) injection 4 mg 2022-02 16:29: 31 Yes 4mg 4 mg, Slow IV Push, Q4HPRN, Starting on Dorothea 12/16/22 at 1029, Until Discontinu ed, Routine, Nausea and Vomiting (N/V) [facility] ondansetron (ZOFRAN (PF)) injection 4 mg 2022-02 16:29: 31 Yes 4mg 4 mg, Slow IV Push, Q4HPRN, Starting on Dorothea 12/16/22 at 1029, Until Discontinu ed, Routine, Nausea and Vomiting (N/V) [facility] HYDROcodone -acetaminop hen (NORCO 5) 5-325 mg tablet 1 tablet 2022-02 16:29: 28 Yes 1{tbl} 1 tablet, Oral, Q6HPRN, Starting on Dorothea 12/16/22 at 1029, Until Discontinu ed, Routine, Pain (scale 4-6) [facility] HYDROcodone -acetaminop hen (NORCO 5) 5-325 mg tablet 1 tablet 2022-02 16:29: 28 12-18 17:08 :22 No 1{tbl} 1 tablet, Oral, Q6HPRN, Starting on Dorothea 12/16/22 at 1029, Until 12/18/22 at 1108, Routine, Pain (scale 4-6) [facility] water for irrigation irrigation solution 2022-02 16:06: 00 12-16 16:46 :34 No PRN, Starting on Dorothea 12/16/22 at 1006, Until Dorothea 12/16/22 at 1046, Routine, Intra-op [facility] vancomycin (VANCOCIN) 1 g in sodium chloride 0.9 % irrigation 2022-02 15:55: 00 12-16 16:46 :34 No PRN, Starting on Dorothea 12/16/22 at 0955, Until Dorothea 12/16/22 at 1046, 1,000 mL, Intra-op [facility] bupivacaine (preserv free) (SENSORCAIN E MPF) 0.25 % (2.5 mg/mL) injection 2022-02 15:55: 00 12-16 16:46 :33 No PRN, Starting on Dorothea 12/16/22 at 0955, Until Dorothea 12/16/22 at 1046, Routine, Intra-op [facility] vasopressin (VASOSTRICT ) injection 2022-02 14:45: 00 12-16 16:46 :33 No PRN, Starting on Dorothea 12/16/22 at 0845, Until Dorothea 12/16/22 at 1046, Routine, Intra-op [facility] sodium chloride 0.9 % irrigation solution 2022-02 14:30: 00 12-16 16:46 :33 No PRN, Starting on Dorothea 12/16/22 at 0830, Until Dorothea 12/16/22 at 1046, Intra-op [facility] bupivacaine (preserv free) 0.5% (SENSORCAIN E MPF) injection 2022-02 14:03: 00 12-16 16:46 :33 No PRN, Starting on Dorothea 12/16/22 at 0803, Until Dorothea 12/16/22 at 1046, Routine, Intra-op [facility] IBUPROFEN ORAL 2022-02 10:58: 25 12-16 00:00 :00 No [facility]PROFEN [facility] IBUPROFEN ORAL 2022-02 10:58: 25 12-16 00:00 :00 No IBUPROFEN [facility] IBUPROFEN ORAL 2022-02 10:58: 25 12-16 00:00 :00 No IBUPROFEN [facility] IBUPROFEN ORAL 2022-02 10:58: 25 12-16 00:00 :00 No [facility]PROFEN [facility] IBUPROFEN ORAL 2022-02 06:42: 37 Yes IBUPROFEN [facility] ibuprofen 800 mg tablet 2022-02 00:00: 00 Yes [id number] 800mg Take 1 tablet by mouth every 8 (eight) hours as needed for Pain (scale 1-3) or Pain (scale 4-6). [facility] polyethylen e glycol 3350 17 gram/dose powder 2022-02 00:00: 00 Yes [id number] 17g Take 17 g by mouth in the morning. [facility] simethicone 80 mg chewable tablet 2022-02 00:00: 00 Yes [id number] 160mg Take 2 tablets by mouth after meals and at bedtime. [facility] ibuprofen 800 mg tablet 2022-02 00:00: 00 Yes [id number] 800mg Take 1 tablet by mouth every 8 (eight) hours as needed for Pain (scale 1-3) or Pain (scale 4-6). [facility] polyethylen e glycol 3350 17 gram/dose powder 2022-02 00:00: 00 Yes [id number] 17g Take 17 g by mouth in the morning. [facility] simethicone 80 mg chewable tablet 2022-02 00:00: 00 Yes [id number] 160mg Take 2 tablets by mouth after meals and at bedtime. [facility] ibuprofen 800 mg tablet 2022-02 00:00: 00 Yes [id number] 800mg Take 1 tablet by mouth every 8 (eight) hours as needed for Pain (scale 1-3) or Pain (scale 4-6). [facility] polyethylen e glycol 3350 17 gram/dose powder 2022-02 00:00: 00 Yes [id number] 17g Take 17 g by mouth in the morning. [facility] simethicone 80 mg chewable tablet 2022-02 00:00: 00 Yes [id number] 160mg Take 2 tablets by mouth after meals and at bedtime. [facility] ibuprofen 800 mg tablet 2022-02 00:00: 00 01-04 00:00 :00 No [id number] 800mg Take 1 tablet by mouth every 8 (eight) hours as needed for Pain (scale 1-3) or Pain (scale 4-6). [facility] oxyCODONE-a cetaminophe n 5-325 mg per tablet 2022-02 00:00: 00 01-04 00:00 :00 No [id number] 1{tbl} Take 1 tablet by mouth every 6 (six) hours as needed for Pain (scale 7-10) for up to 7 days. Indication s: acute pain [facility] polyethylen e glycol 3350 17 gram/dose powder 2022-02 00:00: 00 01-04 00:00 :00 No [id number] 17g Take 17 g by mouth in the morning. [facility] metroNIDAZO LE (FLAGYL) 500 mg tablet 2022-02 00:00: 00 01-04 00:00 :00 No [id number] 500mg Take 1 tablet by mouth in the morning and 1 tablet in the evening. Do all this for 7 days. [facility] simethicone 80 mg chewable tablet 2022-02 00:00: 00 01-04 00:00 :00 No [id number] 160mg Take 2 tablets by mouth after meals and at bedtime. [facility] ibuprofen 800 mg tablet 2022-02 00:00: 00 01-04 00:00 :00 No [id number] 800mg Take 1 tablet by mouth every 8 (eight) hours as needed for Pain (scale 1-3) or Pain (scale 4-6). [facility] oxyCODONE-a cetaminophe n 5-325 mg per tablet 2022-02 00:00: 00 01-04 00:00 :00 No [id number] 1{tbl} Take 1 tablet by mouth every 6 (six) hours as needed for Pain (scale 7-10) for up to 7 days. Indication s: acute pain [facility] polyethylen e glycol 3350 17 gram/dose powder 2022-02 00:00: 00 01-04 00:00 :00 No [id number] 17g Take 17 g by mouth in the morning. [facility] metroNIDAZO LE (FLAGYL) 500 mg tablet 2022-02 00:00: 00 01-04 00:00 :00 No [id number] 500mg Take 1 tablet by mouth in the morning and 1 tablet in the evening. Do all this for 7 days. [facility] simethicone 80 mg chewable tablet 2022-02 00:00: 00 01-04 00:00 :00 No [id number] 160mg Take 2 tablets by mouth after meals and at bedtime. [facility] oxyCODONE-a cetaminophe n 5-325 mg per tablet 2022-02 00:00: 00 12-24 05:59 :00 No [id number] 1{tbl} Take 1 tablet by mouth every 6 (six) hours as needed for Pain (scale 7-10) for up to 7 days. Indication s: acute pain [facility] metroNIDAZO LE (FLAGYL) 500 mg tablet 2022-02 00:00: 00 12-24 05:59 :00 No [id number] 500mg Take 1 tablet by mouth in the morning and 1 tablet in the evening. Do all this for 7 days. [facility] oxyCODONE-a cetaminophe n 5-325 mg per tablet 2022-02 00:00: 00 12-24 05:59 :00 No [id number] 1{tbl} Take 1 tablet by mouth every 6 (six) hours as needed for Pain (scale 7-10) for up to 7 days. Indication s: acute pain [facility] metroNIDAZO LE (FLAGYL) 500 mg tablet 2022-02 00:00: 00 12-24 05:59 :00 No [id number] 500mg Take 1 tablet by mouth in the morning and 1 tablet in the evening. Do all this for 7 days. [facility] IBUPROFEN ORAL 2022-02 13:10: 00 Yes IBUPROFEN [facility] IBUPROFEN ORAL 2022-02 13:10: 00 Yes IBUPROFEN [facility] IBUPROFEN ORAL 2022-02 13:10: 00 Yes IBUPROFEN [facility] IBUPROFEN ORAL 2022-02 13:10: 00 Yes IBUPROFEN [facility] IBUPROFEN ORAL 2022-02 13:10: 00 Yes IBUPROFEN [facility] IBUPROFEN ORAL 2022-02 13:10: 00 Yes IBUPROFEN [facility] IBUPROFEN ORAL 2022-02 13:10: 00 Yes IBUPROFEN [facility] IBUPROFEN ORAL 2022-02 13:10: 00 Yes IBUPROFEN [facility] tobramycin 0.3 % ophthalmic drops 2022-02 00:00: 00 Yes 1[drp] Place 1 Drop in left eye 4 (four) times daily. [facility] tobramycin 0.3 % ophthalmic drops 2022-02 00:00: 00 Yes 1[drp] Place 1 Drop in left eye 4 (four) times daily. [facility] tobramycin 0.3 % ophthalmic drops 2022-02 00:00: 00 Yes 1[drp] Place 1 Drop in left eye 4 (four) times daily. [facility] tobramycin 0.3 % ophthalmic drops 2022-02 00:00: 00 Yes 1[drp] Place 1 Drop in left eye 4 (four) times daily. [facility] tobramycin 0.3 % ophthalmic drops 2022-02 00:00: 00 Yes 1[drp] Place 1 Drop in left eye 4 (four) times daily. [facility] olopatadine (PATADAY ONCE DAILY RELIEF) 0.7 % Drop 2022-02 0 00:00: 00 Yes [id number] 9106 1[drp] Place 1 Drop in each eye in the morning. [facility] olopatadine (PATADAY ONCE DAILY RELIEF) 0.7 % Drop 2022-02 0 00:00: 00 Yes [id number] 9106 1[drp] Place 1 Drop in each eye in the morning. [facility] olopatadine (PATADAY ONCE DAILY RELIEF) 0.7 % Drop 2022-02 0 00:00: 00 Yes [id number] 9106 1[drp] Place 1 Drop in each eye in the morning. [facility] olopatadine (PATADAY ONCE DAILY RELIEF) 0.7 % Drop 2022-02 0 00:00: 00 Yes [id number] 9106 1[drp] Place 1 Drop in each eye in the morning. [facility] olopatadine (PATADAY ONCE DAILY RELIEF) 0.7 % Drop 2022-02 0 00:00: 00 Yes [id number] 9106 1[drp] Place 1 Drop in each eye in the morning. [facility] olopatadine (PATADAY ONCE DAILY RELIEF) 0.7 % Drop 2022-02 0 00:00: 00 Yes [id number] 9106 1[drp] Place 1 Drop in each eye in the morning. [facility] olopatadine (PATADAY ONCE DAILY RELIEF) 0.7 % Drop 2022- 0-21 00:00: 00 Yes [id number] 9106 1[drp] Place 1 Drop in each eye in the morning. [facility] olopatadine (PATADAY ONCE DAILY RELIEF) 0.7 % Drop 2022-1 0-21 00:00: 00 Yes [id number] 9106 1[drp] Place 1 Drop in each eye in the morning. [facility] olopatadine (PATADAY ONCE DAILY RELIEF) 0.7 % Drop 2022- 0-21 00:00: 00 Yes [id number] 9106 1[drp] Place 1 Drop in each eye in the morning. [facility] olopatadine (PATADAY ONCE DAILY RELIEF) 0.7 % Drop 2022- 0-21 00:00: 00 Yes [id number] 9106 1[drp] Place 1 Drop in each eye in the morning. [facility] olopatadine (PATADAY ONCE DAILY RELIEF) 0.7 % Drop 2022- 0- 00:00: 00 Yes [id number] 9106 1[drp] Place 1 Drop in each eye in the morning. [facility] olopatadine (PATADAY ONCE DAILY RELIEF) 0.7 % Drop 2022- 0- 00:00: 00 Yes [id number] 9106 1[drp] Place 1 Drop in each eye in the morning. [facility] olopatadine (PATADAY ONCE DAILY RELIEF) 0.7 % Drop 2022- 0- 00:00: 00 Yes [id number] 9106 1[drp] Place 1 Drop in each eye in the morning. [facility] olopatadine (PATADAY ONCE DAILY RELIEF) 0.7 % Drop 2022-1 0-21 00:00: 00 Yes [id number] 9106 1[drp] Place 1 Drop in each eye in the morning. [facility] olopatadine (PATADAY ONCE DAILY RELIEF) 0.7 % Drop 2022- 0-21 00:00: 00 20212-16 00:00 :00 No [id number] 9106 1[drp] Place 1 Drop in each eye in the morning. [facility] olopatadine (PATADAY ONCE DAILY RELIEF) 0.7 % Drop 2022- 0- 00:00: 00 12-16 00:00 :00 No [id number] 9106 1[drp] Place 1 Drop in each eye in the morning. [facility] olopatadine (PATADAY ONCE DAILY RELIEF) 0.7 % Drop 2022-02 0- 00:00: 00 12-16 00:00 :00 No [id number] 9106 1[drp] Place 1 Drop in each eye in the morning. [facility] olopatadine (PATADAY ONCE DAILY RELIEF) 0.7 % Drop 2022-02 0- 00:00: 00 12-16 00:00 :00 No [id number] 9106 1[drp] Place 1 Drop in each eye in the morning. [facility] IBUPROFEN ORAL 2022-0 10-29 13:22: 01 Yes IBUPROFEN [facility] IBUPROFEN ORAL 3-0 10-29 13:22: 01 Yes IBUPROFEN [facility] IBUPROFEN ORAL 3-0 10-29 13:22: 01 Yes IBUPROFEN [facility] IBUPROFEN ORAL 3-0 10-29 13:22: 01 Yes IBUPROFEN [facility] IBUPROFEN ORAL 2023-0 10-29 13:22: 01 Yes IBUPROFEN [facility] IBUPROFEN ORAL 2023-0 10-29 13:22: 01 Yes IBUPROFEN [facility] IBUPROFEN ORAL 2023-0 10-29 13:22: 01 Yes IBUPROFEN [facility] IBUPROFEN ORAL 2023-0 10-29 13:22: 01 Yes IBUPROFEN [facility] IBUPROFEN ORAL 2023-0 10-29 13:22: 01 Yes IBUPROFEN [facility] IBUPROFEN ORAL 2023-0 10-29 13:22: 01 Yes IBUPROFEN [facility] IBUPROFEN ORAL 2023-0 10-29 13:22: 01 Yes IBUPROFEN [facility] IBUPROFEN ORAL 2023-0 10-29 13:22: 01 Yes IBUPROFEN [facility] IBUPROFEN ORAL 2023-0 10-29 13:22: 01 Yes IBUPROFEN [facility] IBUPROFEN ORAL 10-29 13:22: 01 Yes IBUPROFEN [facility] IBUPROFEN ORAL 10-29 13:22: 01 Yes IBUPROFEN [facility] IBUPROFEN ORAL 10-29 13:22: 01 Yes IBUPROFEN [facility] IBUPROFEN ORAL 10-29 13:22: 01 Yes IBUPROFEN [facility] IBUPROFEN ORAL 10-29 13:22: 01 Yes IBUPROFEN [facility] medroxyPROG ESTERone (DEPO-PROVE RA) syringe 150 mg 10-19 19:45: 00 10-19 18:54 :00 No [id number] [facility] (DEPO-PROVE RA) syringe 150 mg 10-19 19:45: 00 10-19 18:54 :00 No [id number] 150mg 150 mg, Intramuscu lar, ONCE, 1 dose, On Tue10/19/22 at 1445, Routine [facility] medroxyPROG ESTERone (DEPO-PROVE RA) syringe 150 mg 10-19 19:45: 00 10-19 18:54 :00 No [id number] 150mg [facility] medroxyPROG ESTERone (DEPO-PROVE RA) syringe 150 mg 10-19 19:45: 00 10-19 18:54 :00 No [id number] 150mg 150 mg, Intramuscu lar, ONCE, 1 dose, On Tue10/19/22 at 1445, Routine [facility] fluconazole (DIFLUCAN) 150 mg tablet 09-30 00:00: 00 10-01 04:59 :00 No [id number] 150mg Take 1 tablet by mouth once now for 1 dose. [facility] valACYclovi r (VALTREX) 500 mg tablet 09-28 00:00: 00 Yes [id number] 500mg Take 1 tablet by mouth in the morning and 1 tablet in the evening. [facility] valACYclovi r (VALTREX) 500 mg tablet 2022-0 8 00:00: 00 Yes [id number] 500mg Take 1 tablet by mouth in the morning and 1 tablet in the evening. [facility] valACYclovi r (VALTREX) 500 mg tablet 2022-0 8 00:00: 00 Yes [id number] 500mg Take 1 tablet by mouth in the morning and 1 tablet in the evening. [facility] valACYclovi r (VALTREX) 500 mg tablet 2022-0 8 00:00: 00 Yes [id number] 500mg Take 1 tablet by mouth in the morning and 1 tablet in the evening. [facility] valACYclovi r (VALTREX) 500 mg tablet 2022-0 09-28 00:00: 00 Yes [id number] 500mg Take 1 tablet by mouth in the morning and 1 tablet in the evening. [facility] valACYclovi r (VALTREX) 500 mg tablet 2022-0 8 00:00: 00 Yes [id number] 500mg Take 1 tablet by mouth in the morning and 1 tablet in the evening. [facility] valACYclovi r (VALTREX) 500 mg tablet 2022-0 8 00:00: 00 Yes [id number] 500mg Take 1 tablet by mouth in the morning and 1 tablet in the evening. [facility] valACYclovi r (VALTREX) 500 mg tablet 2022-0 8 00:00: 00 Yes [id number] 500mg Take 1 tablet by mouth in the morning and 1 tablet in the evening. [facility] valACYclovi r (VALTREX) 500 mg tablet 2022-0 8 00:00: 00 Yes [id number] 500mg Take 1 tablet by mouth in the morning and 1 tablet in the evening. [facility] valACYclovi r (VALTREX) 500 mg tablet 2022-0 8 00:00: 00 Yes [id number] 500mg Take 1 tablet by mouth in the morning and 1 tablet in the evening. [facility] valACYclovi r (VALTREX) 500 mg tablet 2022-0 8- 00:00: 00 Yes [id number] 500mg Take 1 tablet by mouth in the morning and 1 tablet in the evening. [facility] valACYclovi r (VALTREX) 500 mg tablet 0 09-28 00:00: 00 Yes [id number] 500mg Take 1 tablet by mouth in the morning and 1 tablet in the evening. [facility] valACYclovi r (VALTREX) 500 mg tablet 2022-0 09-28 00:00: 00 Yes [id number] 500mg Take 1 tablet by mouth in the morning and 1 tablet in the evening. [facility] valACYclovi r (VALTREX) 500 mg tablet 0 09-28 00:00: 00 Yes [id number] 500mg Take 1 tablet by mouth in the morning and 1 tablet in the evening. [facility] valACYclovi r (VALTREX) 500 mg tablet 0 09-28 00:00: 00 Yes [id number] 500mg Take 1 tablet by mouth in the morning and 1 tablet in the evening. [facility] valACYclovi r (VALTREX) 500 mg tablet 2022-0 09-28 00:00: 00 Yes [id number] 500mg Take 1 tablet by mouth in the morning and 1 tablet in the evening. [facility] valACYclovi r (VALTREX) 500 mg tablet 0 09-28 00:00: 00 Yes [id number] 500mg Take 1 tablet by mouth in the morning and 1 tablet in the evening. [facility] valACYclovi r (VALTREX) 500 mg tablet 2022-0 09-28 00:00: 00 Yes [id number] 500mg Take 1 tablet by mouth in the morning and 1 tablet in the evening. [facility] valACYclovi r (VALTREX) 500 mg tablet 2022-0 09-28 00:00: 00 Yes [id number] 500mg Take 1 tablet by mouth in the morning and 1 tablet in the evening. [facility] valACYclovi r (VALTREX) 500 mg tablet 2022-0 09-28 00:00: 00 Yes [id number] 500mg Take 1 tablet by mouth in the morning and 1 tablet in the evening. [facility] valACYclovi r (VALTREX) 500 mg tablet 2022-0 09-28 00:00: 00 Yes [id number] 500mg Take 1 tablet by mouth in the morning and 1 tablet in the evening. [facility] valACYclovi r (VALTREX) 500 mg tablet 2022-0 8 00:00: 00 Yes [id number] 500mg Take 1 tablet by mouth in the morning and 1 tablet in the evening. [facility] valACYclovi r (VALTREX) 500 mg tablet 2022-0 09-28 00:00: 00 Yes [id number] 500mg Take 1 tablet by mouth in the morning and 1 tablet in the evening. [facility] valACYclovi r (VALTREX) 500 mg tablet 0 09-28 00:00: 00 Yes [id number] 500mg Take 1 tablet by mouth in the morning and 1 tablet in the evening. [facility] valACYclovi r (VALTREX) 500 mg tablet 2022-0 09-28 00:00: 00 Yes [id number] 500mg Take 1 tablet by mouth in the morning and 1 tablet in the evening. [facility] valACYclovi r (VALTREX) 500 mg tablet 0 09-28 00:00: 00 Yes [id number] 500mg Take 1 tablet by mouth in the morning and 1 tablet in the evening. [facility] valACYclovi r (VALTREX) 500 mg tablet 2022-0 09-28 00:00: 00 Yes [id number] 500mg Take 1 tablet by mouth in the morning and 1 tablet in the evening. [facility] valACYclovi r (VALTREX) 500 mg tablet 2022-0 09-28 00:00: 00 Yes [id number] 500mg Take 1 tablet by mouth in the morning and 1 tablet in the evening. [facility] valACYclovi r (VALTREX) 500 mg tablet 2022-0 09-28 00:00: 00 Yes [id number] 500mg Take 1 tablet by mouth in the morning and 1 tablet in the evening. [facility] valACYclovi r (VALTREX) 500 mg tablet 2022-0 09-28 00:00: 00 Yes [id number] 500mg Take 1 tablet by mouth in the morning and 1 tablet in the evening. [facility] valACYclovi r (VALTREX) 500 mg tablet 09-28 00:00: 00 Yes [id number] 500mg Take 1 tablet by mouth in the morning and 1 tablet in the evening. [facility] valACYclovi r (VALTREX) 500 mg tablet 09-28 00:00: 00 Yes [id number] 500mg Take 1 tablet by mouth in the morning and 1 tablet in the evening. [facility] valACYclovi r (VALTREX) 500 mg tablet 09-28 00:00: 00 Yes [id number] 500mg Take 1 tablet by mouth in the morning and 1 tablet in the evening. [facility] valACYclovi r (VALTREX) 500 mg tablet 09-28 00:00: 00 Yes [id number] 500mg Take 1 tablet by mouth in the morning and 1 tablet in the evening. [facility] valACYclovi r (VALTREX) 500 mg tablet 09-28 00:00: 00 Yes [id number] 500mg Take 1 tablet by mouth in the morning and 1 tablet in the evening. [facility] valACYclovi r (VALTREX) 500 mg tablet 09-28 00:00: 00 01-04 00:00 :00 No [id number] 500mg Take 1 tablet by mouth in the morning and 1 tablet in the evening. [facility] valACYclovi r (VALTREX) 500 mg tablet 09-28 00:00: 00 01-04 00:00 :00 No [id number] 500mg Take 1 tablet by mouth in the morning and 1 tablet in the evening. [facility] phenazopyri dine (PYRIDIUM) 200 mg tablet 08-28 00:00: 00 Yes [id number] 200mg Take 1 tablet by mouth in the morning and 1 tablet at noon and 1 tablet in the evening. Take after meals. [facility] phenazopyri dine (PYRIDIUM) 200 mg tablet 08-28 00:00: 00 Yes [id number] 200mg Take 1 tablet by mouth in the morning and 1 tablet at noon and 1 tablet in the evening. Take after meals. [facility] fluconazole (DIFLUCAN) 150 mg tablet 08-28 00:00: 00 Yes [id number] 150mg Take 1 tablet by mouth in the morning. [facility] phenazopyri dine (PYRIDIUM) 200 mg tablet 08-28 00:00: 00 Yes [id number] 200mg Take 1 tablet by mouth in the morning and 1 tablet at noon and 1 tablet in the evening. Take after meals. [facility] fluconazole (DIFLUCAN) 150 mg tablet 08-28 00:00: 00 Yes [id number] 150mg Take 1 tablet by mouth in the morning. [facility] phenazopyri dine (PYRIDIUM) 200 mg tablet 08-28 00:00: 00 Yes [id number] 200mg Take 1 tablet by mouth in the morning and 1 tablet at noon and 1 tablet in the evening. Take after meals. [facility] fluconazole (DIFLUCAN) 150 mg tablet 08-28 00:00: 00 Yes [id number] 150mg Take 1 tablet by mouth in the morning. [facility] phenazopyri dine (PYRIDIUM) 200 mg tablet 08-28 00:00: 00 Yes [id number] 200mg Take 1 tablet by mouth in the morning and 1 tablet at noon and 1 tablet in the evening. Take after meals. [facility] phenazopyri dine (PYRIDIUM) 200 mg tablet 08-28 00:00: 00 Yes [id number] 200mg Take 1 tablet by mouth in the morning and 1 tablet at noon and 1 tablet in the evening. Take after meals. [facility] phenazopyri dine (PYRIDIUM) 200 mg tablet 08-28 00:00: 00 Yes [id number] 200mg Take 1 tablet by mouth in the morning and 1 tablet at noon and 1 tablet in the evening. Take after meals. [facility] phenazopyri dine (PYRIDIUM) 200 mg tablet 08-28 00:00: 00 Yes [id number] 200mg Take 1 tablet by mouth in the morning and 1 tablet at noon and 1 tablet in the evening. Take after meals. [facility] phenazopyri dine (PYRIDIUM) 200 mg tablet 08-28 00:00: 00 Yes [id number] 200mg Take 1 tablet by mouth in the morning and 1 tablet at noon and 1 tablet in the evening. Take after meals. [facility] phenazopyri dine (PYRIDIUM) 200 mg tablet 08-28 00:00: 00 Yes [id number] 200mg Take 1 tablet by mouth in the morning and 1 tablet at noon and 1 tablet in the evening. Take after meals. [facility] phenazopyri dine (PYRIDIUM) 200 mg tablet 08-28 00:00: 00 Yes [id number] 200mg Take 1 tablet by mouth in the morning and 1 tablet at noon and 1 tablet in the evening. Take after meals. [facility] phenazopyri dine (PYRIDIUM) 200 mg tablet 08-28 00:00: 00 Yes [id number] 200mg Take 1 tablet by mouth in the morning and 1 tablet at noon and 1 tablet in the evening. Take after meals. [facility] phenazopyri dine (PYRIDIUM) 200 mg tablet 08-28 00:00: 00 Yes [id number] 200mg Take 1 tablet by mouth in the morning and 1 tablet at noon and 1 tablet in the evening. Take after meals. [facility] phenazopyri dine (PYRIDIUM) 200 mg tablet 08-28 00:00: 00 Yes [id number] 200mg Take 1 tablet by mouth in the morning and 1 tablet at noon and 1 tablet in the evening. Take after meals. [facility] phenazopyri dine (PYRIDIUM) 200 mg tablet 08-28 00:00: 00 Yes [id number] 200mg Take 1 tablet by mouth in the morning and 1 tablet at noon and 1 tablet in the evening. Take after meals. [facility] phenazopyri dine (PYRIDIUM) 200 mg tablet 08-28 00:00: 00 Yes [id number] 200mg Take 1 tablet by mouth in the morning and 1 tablet at noon and 1 tablet in the evening. Take after meals. [facility] phenazopyri dine (PYRIDIUM) 200 mg tablet 08-28 00:00: 00 Yes [id number] 200mg Take 1 tablet by mouth in the morning and 1 tablet at noon and 1 tablet in the evening. Take after meals. [facility] phenazopyri dine (PYRIDIUM) 200 mg tablet 08-28 00:00: 00 Yes [id number] 200mg Take 1 tablet by mouth in the morning and 1 tablet at noon and 1 tablet in the evening. Take after meals. [facility] phenazopyri dine (PYRIDIUM) 200 mg tablet 08-28 00:00: 00 Yes [id number] 200mg Take 1 tablet by mouth in the morning and 1 tablet at noon and 1 tablet in the evening. Take after meals. [facility] phenazopyri dine (PYRIDIUM) 200 mg tablet 08-28 00:00: 00 Yes [id number] 200mg Take 1 tablet by mouth in the morning and 1 tablet at noon and 1 tablet in the evening. Take after meals. [facility] phenazopyri dine (PYRIDIUM) 200 mg tablet 08-28 00:00: 00 Yes [id number] 200mg Take 1 tablet by mouth in the morning and 1 tablet at noon and 1 tablet in the evening. Take after meals. [facility] phenazopyri dine (PYRIDIUM) 200 mg tablet 08-28 00:00: 00 Yes [id number] 200mg Take 1 tablet by mouth in the morning and 1 tablet at noon and 1 tablet in the evening. Take after meals. [facility] phenazopyri dine (PYRIDIUM) 200 mg tablet 08-28 00:00: 00 Yes [id number] 200mg Take 1 tablet by mouth in the morning and 1 tablet at noon and 1 tablet in the evening. Take after meals. [facility] phenazopyri dine (PYRIDIUM) 200 mg tablet 08-28 00:00: 00 Yes [id number] 200mg Take 1 tablet by mouth in the morning and 1 tablet at noon and 1 tablet in the evening. Take after meals. [facility] phenazopyri dine (PYRIDIUM) 200 mg tablet 08-28 00:00: 00 Yes [id number] 200mg Take 1 tablet by mouth in the morning and 1 tablet at noon and 1 tablet in the evening. Take after meals. [facility] phenazopyri dine (PYRIDIUM) 200 mg tablet 08-28 00:00: 00 Yes [id number] 200mg Take 1 tablet by mouth in the morning and 1 tablet at noon and 1 tablet in the evening. Take after meals. [facility] phenazopyri dine (PYRIDIUM) 200 mg tablet 08-28 00:00: 00 Yes [id number] 200mg Take 1 tablet by mouth in the morning and 1 tablet at noon and 1 tablet in the evening. Take after meals. [facility] phenazopyri dine (PYRIDIUM) 200 mg tablet 08-28 00:00: 00 Yes [id number] 200mg Take 1 tablet by mouth in the morning and 1 tablet at noon and 1 tablet in the evening. Take after meals. [facility] phenazopyri dine (PYRIDIUM) 200 mg tablet 08-28 00:00: 00 Yes [id number] 200mg Take 1 tablet by mouth in the morning and 1 tablet at noon and 1 tablet in the evening. Take after meals. [facility] phenazopyri dine (PYRIDIUM) 200 mg tablet 08-28 00:00: 00 Yes [id number] 200mg Take 1 tablet by mouth in the morning and 1 tablet at noon and 1 tablet in the evening. Take after meals. [facility] phenazopyri dine (PYRIDIUM) 200 mg tablet 08-28 00:00: 00 Yes [id number] 200mg Take 1 tablet by mouth in the morning and 1 tablet at noon and 1 tablet in the evening. Take after meals. [facility] phenazopyri dine (PYRIDIUM) 200 mg tablet 08-28 00:00: 00 Yes [id number] 200mg Take 1 tablet by mouth in the morning and 1 tablet at noon and 1 tablet in the evening. Take after meals. [facility] phenazopyri dine (PYRIDIUM) 200 mg tablet 08-28 00:00: 00 Yes [id number] 200mg Take 1 tablet by mouth in the morning and 1 tablet at noon and 1 tablet in the evening. Take after meals. [facility] phenazopyri dine (PYRIDIUM) 200 mg tablet 08-28 00:00: 00 12-16 00:00 :00 No [id number] 200mg Take 1 tablet by mouth in the morning and 1 tablet at noon and 1 tablet in the evening. Take after meals. [facility] phenazopyri dine (PYRIDIUM) 200 mg tablet 08-28 00:00: 00 12-16 00:00 :00 No [id number] 200mg Take 1 tablet by mouth in the morning and 1 tablet at noon and 1 tablet in the evening. Take after meals. [facility] phenazopyri dine (PYRIDIUM) 200 mg tablet 08-28 00:00: 00 12-16 00:00 :00 No [id number] 200mg Take 1 tablet by mouth in the morning and 1 tablet at noon and 1 tablet in the evening. Take after meals. [facility] phenazopyri dine (PYRIDIUM) 200 mg tablet 08-28 00:00: 00 12-16 00:00 :00 No [id number] 200mg Take 1 tablet by mouth in the morning and 1 tablet at noon and 1 tablet in the evening. Take after meals. [facility] fluconazole (DIFLUCAN) 150 mg tablet 08-28 00:00: 00 09-30 00:00 :00 No [id number] 150mg Take 1 tablet by mouth in the morning. [facility] fluconazole (DIFLUCAN) 150 mg tablet 08-27 00:00: 00 Yes [id number] 150mg Take 1 tablet by mouth in the morning. [facility] phenazopyri dine (PYRIDIUM) 200 mg tablet 08-27 00:00: 00 Yes [id number] 200mg Take 1 tablet by mouth in the morning and 1 tablet at noon and 1 tablet in the evening. Take after meals. [facility] phenazopyri dine (PYRIDIUM) 200 mg tablet 08-27 00:00: 00 08-31 04:59 :00 No [id number] 200mg Take 1 tablet by mouth in the morning and 1 tablet at noon and 1 tablet in the evening. Take after meals. Do all this for 3 days. [facility] fluconazole (DIFLUCAN) 150 mg tablet 08-27 00:00: 00 08-30 04:59 :00 No [id number] 150mg Take 1 tablet by mouth in the morning for 2 doses. [facility] fluconazole (DIFLUCAN) 150 mg tablet 08-27 00:00: 00 08-28 00:00 :00 No [id number] 150mg Take 1 tablet by mouth in the morning. [facility] phenazopyri dine (PYRIDIUM) 200 mg tablet 08-27 00:00: 00 08-28 00:00 :00 No [id number] 200mg Take 1 tablet by mouth in the morning and 1 tablet at noon and 1 tablet in the evening. Take after meals. [facility] fluconazole (DIFLUCAN) 150 mg tablet 08-27 00:00: 00 08-27 00:00 :00 No [id number] 150mg Take 1 tablet by mouth in the morning for 2 doses. [facility] phenazopyri dine (PYRIDIUM) 200 mg tablet 08-27 00:00: 00 08-27 00:00 :00 No [id number] 200mg Take 1 tablet by mouth in the morning and 1 tablet at noon and 1 tablet in the evening. Take after meals. Do all this for 3 days. [facility] IBUPROFEN ORAL 2022-0 3-10 09:03: 30 Yes [facility]PROFEN [facility] IBUPROFEN ORAL 2023-0 3-10 09:03: 30 Yes IBUPROFEN [facility] IBUPROFEN ORAL 2023-0 3-10 09:03: 30 Yes IBUPROFEN [facility] IBUPROFEN ORAL 2023-0 3-10 09:03: 30 Yes IBUPROFEN [facility] IBUPROFEN ORAL 2023-0 3-10 09:03: 30 Yes IBUPROFEN [facility] IBUPROFEN ORAL 2023-0 3-10 09:03: 30 Yes IBUPROFEN [facility] IBUPROFEN ORAL 2023-0 3-10 09:03: 30 Yes IBUPROFEN [facility] IBUPROFEN ORAL 2023-0 3-10 09:03: 30 Yes IBUPROFEN [facility] IBUPROFEN ORAL 2023-0 3-10 09:03: 30 Yes IBUPROFEN [facility] IBUPROFEN ORAL 2023-0 3-10 09:03: 30 Yes IBUPROFEN [facility] IBUPROFEN ORAL 2023-0 3-10 09:03: 30 Yes IBUPROFEN [facility] IBUPROFEN ORAL 2023-0 3-10 09:03: 30 Yes IBUPROFEN [facility] IBUPROFEN ORAL 2023-0 3-10 09:03: 30 Yes IBUPROFEN [facility] terconazole 80 mg vaginal suppository 2023-0 3-10 00:00: 00 Yes [id number] 80mg Insert 1 Suppositor y into vagina at bedtime. [facility] terconazole 80 mg vaginal suppository 2023-0 3-10 00:00: 00 Yes [id number] 80mg Insert 1 Suppositor y into vagina at bedtime. [facility] terconazole 80 mg vaginal suppository 2023-0 3-10 00:00: 00 Yes [id number] 80mg Insert 1 Suppositor y into vagina at bedtime. [facility] terconazole 80 mg vaginal suppository 2023-0 3-10 00:00: 00 Yes [id number] 80mg Insert 1 Suppositor y into vagina at bedtime. [facility] terconazole 80 mg vaginal suppository 2023-0 3-10 00:00: 00 Yes [id number] 80mg Insert 1 Suppositor y into vagina at bedtime. [facility] terconazole 80 mg vaginal suppository 3-0 3-10 00:00: 00 Yes [id number] 80mg Insert 1 Suppositor y into vagina at bedtime. [facility] terconazole 80 mg vaginal suppository 3-0 3-10 00:00: 00 Yes [id number] 80mg Insert 1 Suppositor y into vagina at bedtime. [facility] terconazole 80 mg vaginal suppository 2022-0 3-10 00:00: 00 Yes [id number] 80mg Insert 1 Suppositor y into vagina at bedtime. [facility] terconazole 80 mg vaginal suppository 2022-0 3-10 00:00: 00 Yes [id number] 80mg Insert 1 Suppositor y into vagina at bedtime. [facility] terconazole 80 mg vaginal suppository 3-0 3-10 00:00: 00 Yes [id number] 80mg Insert 1 Suppositor y into vagina at bedtime. [facility] terconazole 80 mg vaginal suppository 2022-0 3-10 00:00: 00 Yes [id number] 80mg Insert 1 Suppositor y into vagina at bedtime. [facility] terconazole 80 mg vaginal suppository 2022-0 3-10 00:00: 00 Yes [id number] 80mg Insert 1 Suppositor y into vagina at bedtime. [facility] terconazole 80 mg vaginal suppository 2022-0 3-10 00:00: 00 Yes [id number] 80mg Insert 1 Suppositor y into vagina at bedtime. [facility] terconazole 80 mg vaginal suppository 3-0 3-10 00:00: 00 Yes [id number] 80mg Insert 1 Suppositor y into vagina at bedtime. [facility] terconazole 80 mg vaginal suppository 3-0 3-10 00:00: 00 Yes [id number] 80mg Insert 1 Suppositor y into vagina at bedtime. [facility] terconazole 80 mg vaginal suppository 3-0 3-10 00:00: 00 Yes [id number] 80mg Insert 1 Suppositor y into vagina at bedtime. [facility] terconazole 80 mg vaginal suppository 3-0 3-10 00:00: 00 Yes [id number] 80mg Insert 1 Suppositor y into vagina at bedtime. [facility] terconazole 80 mg vaginal suppository 3-0 3-10 00:00: 00 Yes [id number] 80mg Insert 1 Suppositor y into vagina at bedtime. [facility] terconazole 80 mg vaginal suppository 3-0 3-10 00:00: 00 Yes [id number] 80mg Insert 1 Suppositor y into vagina at bedtime. [facility] terconazole 80 mg vaginal suppository 2022-0 3-10 00:00: 00 Yes [id number] 80mg Insert 1 Suppositor y into vagina at bedtime. [facility] terconazole 80 mg vaginal suppository 3-0 3-10 00:00: 00 Yes [id number] 80mg Insert 1 Suppositor y into vagina at bedtime. [facility] terconazole 80 mg vaginal suppository 3-0 3-10 00:00: 00 Yes [id number] 80mg Insert 1 Suppositor y into vagina at bedtime. [facility] terconazole 80 mg vaginal suppository 3-0 3-10 00:00: 00 Yes [id number] 80mg Insert 1 Suppositor y into vagina at bedtime. [facility] terconazole 80 mg vaginal suppository 3-0 3-10 00:00: 00 Yes [id number] 80mg Insert 1 Suppositor y into vagina at bedtime. [facility] terconazole 80 mg vaginal suppository 3-0 3-10 00:00: 00 Yes [id number] 80mg Insert 1 Suppositor y into vagina at bedtime. [facility] terconazole 80 mg vaginal suppository 3-0 3-10 00:00: 00 Yes [id number] 80mg Insert 1 Suppositor y into vagina at bedtime. [facility] terconazole 80 mg vaginal suppository 3-0 3-10 00:00: 00 Yes [id number] 80mg Insert 1 Suppositor y into vagina at bedtime. [facility] terconazole 80 mg vaginal suppository 3-0 3-10 00:00: 00 Yes [id number] 80mg Insert 1 Suppositor y into vagina at bedtime. [facility] terconazole 80 mg vaginal suppository 3-0 3-10 00:00: 00 Yes [id number] 80mg Insert 1 Suppositor y into vagina at bedtime. [facility] terconazole 80 mg vaginal suppository 3-0 3-10 00:00: 00 Yes [id number] 80mg Insert 1 Suppositor y into vagina at bedtime. [facility] terconazole 80 mg vaginal suppository 3-0 3-10 00:00: 00 Yes [id number] 80mg Insert 1 Suppositor y into vagina at bedtime. [facility] terconazole 80 mg vaginal suppository 2022-0 3-10 00:00: 00 Yes [id number] 80mg Insert 1 Suppositor y into vagina at bedtime. [facility] terconazole 80 mg vaginal suppository 2022-0 3-10 00:00: 00 Yes [id number] 80mg Insert 1 Suppositor y into vagina at bedtime. [facility] terconazole 80 mg vaginal suppository 3-0 3-10 00:00: 00 Yes [id number] 80mg Insert 1 Suppositor y into vagina at bedtime. [facility] terconazole 80 mg vaginal suppository 3-0 3-10 00:00: 00 Yes [id number] 80mg Insert 1 Suppositor y into vagina at bedtime. [facility] terconazole 80 mg vaginal suppository 3-0 3-10 00:00: 00 Yes [id number] 80mg Insert 1 Suppositor y into vagina at bedtime. [facility] terconazole 80 mg vaginal suppository 3-0 3-10 00:00: 00 Yes [id number] 80mg Insert 1 Suppositor y into vagina at bedtime. [facility] terconazole 80 mg vaginal suppository 0 3-10 00:00: 00 Yes [id number] 80mg Insert 1 Suppositor y into vagina at bedtime. [facility] terconazole 80 mg vaginal suppository 0 3-10 00:00: 00 Yes [id number] 80mg Insert 1 Suppositor y into vagina at bedtime. [facility] terconazole 80 mg vaginal suppository 0 3-10 00:00: 00 Yes [id number] 80mg Insert 1 Suppositor y into vagina at bedtime. [facility] terconazole 80 mg vaginal suppository 3-10 00:00: 00 12-16 00:00 :00 No [id number] 80mg Insert 1 Suppositor y into vagina at bedtime. [facility] terconazole 80 mg vaginal suppository 3-10 00:00: 00 12-16 00:00 :00 No [id number] 80mg Insert 1 Suppositor y into vagina at bedtime. [facility] terconazole 80 mg vaginal suppository 3-10 00:00: 00 12-16 00:00 :00 No [id number] 80mg Insert 1 Suppositor y into vagina at bedtime. [facility] terconazole 80 mg vaginal suppository 3-10 00:00: 00 12-16 00:00 :00 No [id number] 80mg Insert 1 Suppositor y into vagina at bedtime. [facility] etonogestre l (NEXPLANON SDRM) 2- 13:02: 59 04-06 00:00 :00 No by Subdermal route. [facility] etonogestre l (NEXPLANON SDRM) 2-28 13:02: 59 04-06 00:00 :00 No by Subdermal route. [facility] hydrocortis one 2.5 % rectal cream 04-05 00:00: 00 Yes [id number] Insert into rectum 2 (two) times daily. [facility] hydrocortis one 2.5 % rectal cream 04-05 00:00: 00 Yes [id number] Insert into rectum 2 (two) times daily. [facility] fluconazole 200 mg tablet 04-05 00:00: 00 Yes [id number] 200mg Take 1 tablet by mouth every 3 (three) days. [facility] norgestimat e-ethinyl estradioL (ORTHO TRI-CYCLEN, 28,) 0.18/0.215/ 0.25 mg-35 mcg (28) tablet 0 04-05 00:00: 00 Yes [id number] 1{tbl} Take 1 tablet by mouth in the morning. [facility] hydrocortis one 2.5 % rectal cream 04-05 00:00: 00 Yes [id number] Insert into rectum 2 (two) times daily. [facility] fluconazole 200 mg tablet 04-05 00:00: 00 Yes [id number] 200mg Take 1 tablet by mouth every 3 (three) days. [facility] norgestimat e-ethinyl estradioL (ORTHO TRI-CYCLEN, 28,) 0.18/0.215/ 0.25 mg-35 mcg (28) tablet 0 04-05 00:00: 00 Yes [id number] 1{tbl} Take 1 tablet by mouth in the morning. [facility] hydrocortis one 2.5 % rectal cream 04-05 00:00: 00 Yes [id number] Insert into rectum 2 (two) times daily. [facility] fluconazole 200 mg tablet 0 04-05 00:00: 00 Yes [id number] 200mg Take 1 tablet by mouth every 3 (three) days. [facility] norgestimat e-ethinyl estradioL (ORTHO TRI-CYCLEN, 28,) 0.18/0.215/ 0.25 mg-35 mcg (28) tablet 2022-0 04-05 00:00: 00 Yes [id number] 1{tbl} Take 1 tablet by mouth in the morning. [facility] hydrocortis one 2.5 % rectal cream 04-05 00:00: 00 Yes [id number] Insert into rectum 2 (two) times daily. [facility] fluconazole 200 mg tablet 04-05 00:00: 00 Yes [id number] 200mg Take 1 tablet by mouth every 3 (three) days. [facility] norgestimat e-ethinyl estradioL (ORTHO TRI-CYCLEN, 28,) 0.18/0.215/ 0.25 mg-35 mcg (28) tablet 0 04-05 00:00: 00 Yes [id number] 1{tbl} Take 1 tablet by mouth in the morning. [facility] hydrocortis one 2.5 % rectal cream 04-05 00:00: 00 Yes [id number] Insert into rectum 2 (two) times daily. [facility] fluconazole 200 mg tablet 04-05 00:00: 00 Yes [id number] 200mg Take 1 tablet by mouth every 3 (three) days. [facility] norgestimat e-ethinyl estradioL (ORTHO TRI-CYCLEN, 28,) 0.18/0.215/ 0.25 mg-35 mcg (28) tablet 0 04-05 00:00: 00 Yes [id number] 1{tbl} Take 1 tablet by mouth in the morning. [facility] hydrocortis one 2.5 % rectal cream 04-05 00:00: 00 Yes [id number] Insert into rectum 2 (two) times daily. [facility] fluconazole 200 mg tablet 0 04-05 00:00: 00 Yes [id number] 200mg Take 1 tablet by mouth every 3 (three) days. [facility] norgestimat e-ethinyl estradioL (ORTHO TRI-CYCLEN, 28,) 0.18/0.215/ 0.25 mg-35 mcg (28) tablet 04-05 00:00: 00 Yes [id number] 1{tbl} Take 1 tablet by mouth in the morning. [facility] hydrocortis one 2.5 % rectal cream 04-05 00:00: 00 Yes [id number] Insert into rectum 2 (two) times daily. [facility] fluconazole 200 mg tablet 04-05 00:00: 00 Yes [id number] 200mg Take 1 tablet by mouth every 3 (three) days. [facility] norgestimat e-ethinyl estradioL (ORTHO TRI-CYCLEN, 28,) 0.18/0.215/ 0.25 mg-35 mcg (28) tablet 04-05 00:00: 00 Yes [id number] 1{tbl} Take 1 tablet by mouth in the morning. [facility] hydrocortis one 2.5 % rectal cream 04-05 00:00: 00 Yes [id number] Insert into rectum 2 (two) times daily. [facility] fluconazole 200 mg tablet 04-05 00:00: 00 Yes [id number] 200mg Take 1 tablet by mouth every 3 (three) days. [facility] norgestimat e-ethinyl estradioL (ORTHO TRI-CYCLEN, 28,) 0.18/0.215/ 0.25 mg-35 mcg (28) tablet 04-05 00:00: 00 Yes [id number] 1{tbl} Take 1 tablet by mouth in the morning. [facility] hydrocortis one 2.5 % rectal cream 04-05 00:00: 00 Yes [id number] Insert into rectum 2 (two) times daily. [facility] fluconazole 200 mg tablet 04-05 00:00: 00 Yes [id number] 200mg Take 1 tablet by mouth every 3 (three) days. [facility] norgestimat e-ethinyl estradioL (ORTHO TRI-CYCLEN, 28,) 0.18/0.215/ 0.25 mg-35 mcg (28) tablet 04-05 00:00: 00 Yes [id number] 1{tbl} Take 1 tablet by mouth in the morning. [facility] hydrocortis one 2.5 % rectal cream 0 04-05 00:00: 00 Yes [id number] Insert into rectum 2 (two) times daily. [facility] fluconazole 200 mg tablet 04-05 00:00: 00 Yes [id number] 200mg Take 1 tablet by mouth every 3 (three) days. [facility] norgestimat e-ethinyl estradioL (ORTHO TRI-CYCLEN, 28,) 0.18/0.215/ 0.25 mg-35 mcg (28) tablet 04-05 00:00: 00 Yes [id number] 1{tbl} Take 1 tablet by mouth in the morning. [facility] hydrocortis one 2.5 % rectal cream 04-05 00:00: 00 Yes [id number] Insert into rectum 2 (two) times daily. [facility] fluconazole 200 mg tablet 04-05 00:00: 00 Yes [id number] 200mg Take 1 tablet by mouth every 3 (three) days. [facility] norgestimat e-ethinyl estradioL (ORTHO TRI-CYCLEN, 28,) 0.18/0.215/ 0.25 mg-35 mcg (28) tablet 04-05 00:00: 00 Yes [id number] 1{tbl} Take 1 tablet by mouth in the morning. [facility] hydrocortis one 2.5 % rectal cream 04-05 00:00: 00 Yes [id number] Insert into rectum 2 (two) times daily. [facility] fluconazole 200 mg tablet 0 04-05 00:00: 00 Yes [id number] 200mg Take 1 tablet by mouth every 3 (three) days. [facility] norgestimat e-ethinyl estradioL (ORTHO TRI-CYCLEN, 28,) 0.18/0.215/ 0.25 mg-35 mcg (28) tablet 2022-0 04-05 00:00: 00 Yes [id number] 1{tbl} Take 1 tablet by mouth in the morning. [facility] hydrocortis one 2.5 % rectal cream 04-05 00:00: 00 Yes [id number] Insert into rectum 2 (two) times daily. [facility] norgestimat e-ethinyl estradioL (ORTHO TRI-CYCLEN, 28,) 0.18/0.215/ 0.25 mg-35 mcg (28) tablet 0 04-05 00:00: 00 Yes [id number] 1{tbl} Take 1 tablet by mouth in the morning. [facility] hydrocortis one 2.5 % rectal cream 0 04-05 00:00: 00 Yes [id number] Insert into rectum 2 (two) times daily. [facility] norgestimat e-ethinyl estradioL (ORTHO TRI-CYCLEN, 28,) 0.18/0.215/ 0.25 mg-35 mcg (28) tablet 04-05 00:00: 00 Yes [id number] 1{tbl} Take 1 tablet by mouth in the morning. [facility] hydrocortis one 2.5 % rectal cream 2022-0 04-05 00:00: 00 Yes [id number] Insert into rectum 2 (two) times daily. [facility] hydrocortis one 2.5 % rectal cream 2022-0 04-05 00:00: 00 Yes [id number] Insert into rectum 2 (two) times daily. [facility] hydrocortis one 2.5 % rectal cream 2022-0 04-05 00:00: 00 Yes [id number] Insert into rectum 2 (two) times daily. [facility] hydrocortis one 2.5 % rectal cream 2022-0 04-05 00:00: 00 Yes [id number] Insert into rectum 2 (two) times daily. [facility] hydrocortis one 2.5 % rectal cream 2022-0 04-05 00:00: 00 Yes [id number] Insert into rectum 2 (two) times daily. [facility] hydrocortis one 2.5 % rectal cream 2022-0 27 00:00: 00 Yes [id number] Insert into rectum 2 (two) times daily. [facility] hydrocortis one 2.5 % rectal cream 2023-0 2-27 00:00: 00 Yes [id number] Insert into rectum 2 (two) times daily. [facility] hydrocortis one 2.5 % rectal cream 2023-0 2-27 00:00: 00 Yes [id number] Insert into rectum 2 (two) times daily. [facility] hydrocortis one 2.5 % rectal cream 2023-0 2-27 00:00: 00 Yes [id number] Insert into rectum 2 (two) times daily. [facility] hydrocortis one 2.5 % rectal cream 2023-0 2-27 00:00: 00 Yes [id number] Insert into rectum 2 (two) times daily. [facility] [place] [facility] hydrocortis one 2.5 % rectal cream 3-0 2-27 00:00: 00 Yes [id number] Insert into rectum 2 (two) times daily. [facility] hydrocortis one 2.5 % rectal cream 2023-0 2-27 00:00: 00 Yes [id number] Insert into rectum 2 (two) times daily. [facility] hydrocortis one 2.5 % rectal cream 3-0 2-27 00:00: 00 Yes [id number] Insert into rectum 2 (two) times daily. [facility] hydrocortis one 2.5 % rectal cream 3-0 2-27 00:00: 00 Yes [id number] Insert into rectum 2 (two) times daily. [facility] hydrocortis one 2.5 % rectal cream 2023-0 2-27 00:00: 00 Yes [id number] Insert into rectum 2 (two) times daily. [facility] hydrocortis one 2.5 % rectal cream 2023-0 2-27 00:00: 00 Yes [id number] Insert into rectum 2 (two) times daily. [facility] hydrocortis one 2.5 % rectal cream 2023-0 2-27 00:00: 00 Yes [id number] Insert into rectum 2 (two) times daily. [facility] hydrocortis one 2.5 % rectal cream 2023-0 2-27 00:00: 00 Yes [id number] Insert into rectum 2 (two) times daily. [facility] hydrocortis one 2.5 % rectal cream 2023-0 2-27 00:00: 00 Yes [id number] Insert into rectum 2 (two) times daily. [facility] hydrocortis one 2.5 % rectal cream 2023-0 2-27 00:00: 00 Yes [id number] Insert into rectum 2 (two) times daily. [facility] hydrocortis one 2.5 % rectal cream 2023-0 2-27 00:00: 00 Yes [id number] Insert into rectum 2 (two) times daily. [facility] hydrocortis one 2.5 % rectal cream 2023-0 2-27 00:00: 00 Yes [id number] Insert into rectum 2 (two) times daily. [facility] hydrocortis one 2.5 % rectal cream 2023-0 2-27 00:00: 00 Yes [id number] Insert into rectum 2 (two) times daily. [facility] hydrocortis one 2.5 % rectal cream 2023-0 2-27 00:00: 00 Yes [id number] Insert into rectum 2 (two) times daily. [facility] hydrocortis one 2.5 % rectal cream 2023-0 2-27 00:00: 00 Yes [id number] Insert into rectum 2 (two) times daily. [facility] hydrocortis one 2.5 % rectal cream 2023-0 2-27 00:00: 00 Yes [id number] Insert into rectum 2 (two) times daily. [facility] hydrocortis one 2.5 % rectal cream 2023-0 2-27 00:00: 00 Yes [id number] Insert into rectum 2 (two) times daily. [facility] hydrocortis one 2.5 % rectal cream 2023-0 2-27 00:00: 00 Yes [id number] Insert into rectum 2 (two) times daily. [facility] hydrocortis one 2.5 % rectal cream 2023-0 2-27 00:00: 00 202 11-09 00:00 :00 No [id number] Insert into rectum 2 (two) times daily. [facility] hydrocortis one 2.5 % rectal cream 227 00:00: 00 12-16 00:00 :00 No [id number] Insert into rectum 2 (two) times daily. [facility] hydrocortis one 2.5 % rectal cream 2 00:00: 00 12-16 00:00 :00 No [id number] Insert into rectum 2 (two) times daily. [facility] hydrocortis one 2.5 % rectal cream 04-05 00:00: 00 12-16 00:00 :00 No [id number] Insert into rectum 2 (two) times daily. [facility] norgestimat e-ethinyl estradioL (ORTHO TRI-CYCLEN, 28,) 0.18/0.215/ 0.25 mg-35 mcg (28) tablet 04-05 00:00: 00 10-19 00:00 :00 No [id number] 1{tbl} Take 1 tablet by mouth in the morning. [facility] norgestimat e-ethinyl estradioL (ORTHO TRI-CYCLEN, 28,) 0.18/0.215/ 0.25 mg-35 mcg (28) tablet 04-05 00:00: 00 10-19 00:00 :00 No [id number] 1{tbl} Take 1 tablet by mouth in the morning. [facility] fluconazole 200 mg tablet 04-05 00:00: 00 09-30 00:00 :00 No [id number] 200mg Take 1 tablet by mouth every 3 (three) days. [facility] fluconazole 200 mg tablet 2020-02 2- 00:00: 00 No 1mg fluconazole 200 mg tablet 2020-02 2- 00:00: 00 No 1mg Bactrim DS 800 mg-160 mg tablet - 00:00: 00 No 1mg Diflucan 150 mg tablet 4- 00:00: 00 No 1mg diclofenac 3 % topical gel 3-16 00:00: 00 No 1% fluconazole 150 mg tablet 2019-02 0 00:00: 00 No mg hydroxyzine HCl 25 mg tablet 05-09 00:00: 00 No 12mg omeprazole 40 mg capsule,del ayed release 05-09 00:00: 00 No 1mg triamcinolo ne acetonide 0.1 % topical ointment 04-05 00:00: 00 No 1% erythromyci n 5 mg/gram (0.5 %) eye ointment 04-05 00:00: 00 No 1(0.5 %) cephalexin 500 mg capsule 04-05 00:00: 00 No 1mg cephALEXin (KEFLEX) 500 mg capsule 04-03 00:00: 00 04-13 05:59 :00 No [id number] 500mg Take 1 capsule by mouth 2 (two) times daily for 10 days. [facility] cephALEXin (KEFLEX) 500 mg capsule 04-03 00:00: 04-13 05:59 :00 No [id number] 500mg Take 1 capsule by mouth 2 (two) times daily for 10 days. [facility] fluconazole (DIFLUCAN) 150 mg tablet 04-03 00:00: 04-04 05:59 :00 No [id number] 150mg Take 1 tablet by mouth once now for 1 dose. [facility] fluconazole (DIFLUCAN) 150 mg tablet 04-03 00:00: 04-04 05:59 :00 No [id number] 150mg Take 1 tablet by mouth once now for 1 dose. [facility] etonogestre l (NEXPLANON SDRM) 03-08 15:31: 14 Yes by Subdermal route. [facility] etonogestre l (NEXPLANON SDRM) 03-08 15:31: 14 Yes by Subdermal route. [facility] etonogestre l (NEXPLANON SDRM) 03-08 15:31: 14 Yes by Subdermal route. [facility] etonogestre l (NEXPLANON SDRM) 03-08 15:31: 14 Yes by Subdermal route. [facility] etonogestre l (NEXPLANON SDRM) 03-08 15:31: 14 Yes by Subdermal route. [facility] etonogestre l (NEXPLANON SDRM) 03-08 15:31: 14 Yes by Subdermal route. [facility] etonogestre l (NEXPLANON SDRM) 03-08 15:31: 14 Yes by Subdermal route. [facility] etonogestre l (NEXPLANON SDRM) 03-08 09:31: 14 Yes by Subdermal route. [facility] triamcinolo ne acetonide 0.5 % topical ointment 2018-02 00:00: 00 No 1% Proctozone- HC 2.5 % topical cream perineal applicator 2018-02 00:00: 00 No 1% triamcinolo ne acetonide 0.1 % topical ointment 10-20 00:00: 00 No 1% hydrocortis one acetate 25 mg rectal suppository 10-20 00:00: 00 No 1mg acyclovir 400 mg tablet 09-19 00:00: 00 No 1mg lidocaine HCl 2 % mucosal jelly 09-13 00:00: 00 No 1% ketoconazol e 2 % topical cream 06-15 00:00: 00 No 1% ketoconazol e 2 % shampoo 06-15 00:00: 00 No 1% fluconazole 150 mg tablet 06-15 00:00: 00 No 1mg metronidazo le 500 mg tablet 2017-02 00:00: 00 No 1mg fluconazole 150 mg tablet 2017-02 00:00: 00 No 1mg prednisone 20 mg tablet 2017-02 00:00: 00 No 3mg Nexplanon 68 mg subdermal implant 2017-02 00:00: 00 No 1mg triamcinolo ne acetonide 0.1 % topical cream 2017-02 00:00: 00 No 1% prednisone 20 mg tablet 2017-02 00:00: 00 No 3mg tobramycin 0.3 % eye drops 7-17 00:00: 00 No 1% Loestrin 02/26 (21) Loestrin 02/26 (21) 7-11 00:00: 00 Yes Cristina Restrepo 1 tablet [facility] Ferralet 90 Ferralet 90 3-15 00:00: 00 Yes Cristina Restrepo 1 tablet [facility] norgestimat e-ethinyl estradiol (ORTHO TRI-CYCLEN, 28,) 0.18/0.215/ 0.25 mg-35 mcg (28) tablet 2015-02 00:00: 00 Yes [id number] 1{tbl} Take 1 tablet by mouth daily. [facility] norgestimat e-ethinyl estradiol (ORTHO TRI-CYCLEN, 28,) 0.18/0.215/ 0.25 mg-35 mcg (28) tablet 2015-02 00:00: 00 Yes [id number] 1{tbl} Take 1 tablet by mouth daily. [facility] norgestimat e-ethinyl estradiol (ORTHO TRI-CYCLEN, 28,) 0.18/0.215/ 0.25 mg-35 mcg (28) tablet 2015-02 00:00: 00 Yes [id number] 1{tbl} Take 1 tablet by mouth daily. [facility] norgestimat e-ethinyl estradiol (ORTHO TRI-CYCLEN, 28,) 0.18/0.215/ 0.25 mg-35 mcg (28) tablet 2015-02 00:00: 00 Yes [id number] 1{tbl} Take 1 tablet by mouth daily. [facility] norgestimat e-ethinyl estradiol (ORTHO TRI-CYCLEN, 28,) 0.18/0.215/ 0.25 mg-35 mcg (28) tablet 2015-02 00:00: 00 Yes [id number] 1{tbl} Take 1 tablet by mouth daily. [facility] norgestimat e-ethinyl estradiol (ORTHO TRI-CYCLEN, 28,) 0.18/0.215/ 0.25 mg-35 mcg (28) tablet 2015-02 00:00: 00 Yes [id number] 1{tbl} Take 1 tablet by mouth daily. [facility] norgestimat e-ethinyl estradiol (ORTHO TRI-CYCLEN, 28,) 0.18/0.215/ 0.25 mg-35 mcg (28) tablet 2015-02 00:00: 00 Yes [id number] 1{tbl} Take 1 tablet by mouth daily. [facility] norgestimat e-ethinyl estradiol (ORTHO TRI-CYCLEN, 28,) 0.18/0.215/ 0.25 mg-35 mcg (28) tablet 2015-02 00:00: 00 Yes [id number] 1{tbl} Take 1 tablet by mouth daily. [facility] norgestimat e-ethinyl estradiol (ORTHO TRI-CYCLEN, 28,) 0.18/0.215/ 0.25 mg-35 mcg (28) tablet 2015-02 00:00: 00 Yes [id number] 1{tbl} Take 1 tablet by mouth daily. [facility] norgestimat e-ethinyl estradiol (ORTHO TRI-CYCLEN, 28,) 0.18/0.215/ 0.25 mg-35 mcg (28) tablet 2015-02 00:00: 00 Yes [id number] 1{tbl} Take 1 tablet by mouth daily. [facility] norgestimat e-ethinyl estradiol (ORTHO TRI-CYCLEN, 28,) 0.18/0.215/ 0.25 mg-35 mcg (28) tablet 2015-02 00:00: 00 Yes [id number] 1{tbl} Take 1 tablet by mouth daily. [facility] norgestimat e-ethinyl estradiol (ORTHO TRI-CYCLEN, 28,) 0.18/0.215/ 0.25 mg-35 mcg (28) tablet 2015-02 00:00: 00 Yes [id number] 1{tbl} Take 1 tablet by mouth daily. [facility] norgestimat e-ethinyl estradiol (ORTHO TRI-CYCLEN, 28,) 0.18/0.215/ 0.25 mg-35 mcg (28) tablet 2015-02 00:00: 00 Yes [id number] 1{tbl} Take 1 tablet by mouth daily. [facility] norgestimat e-ethinyl estradiol (ORTHO TRI-CYCLEN, 28,) 0.18/0.215/ 0.25 mg-35 mcg (28) tablet 2015-02 00:00: 00 Yes [id number] 1{tbl} Take 1 tablet by mouth daily. [facility] norgestimat e-ethinyl estradiol (ORTHO TRI-CYCLEN, 28,) 0.18/0.215/ 0.25 mg-35 mcg (28) tablet 2015-02 00:00: 00 Yes [id number] 1{tbl} Take 1 tablet by mouth daily. [facility] norgestimat e-ethinyl estradiol (ORTHO TRI-CYCLEN, 28,) 0.18/0.215/ 0.25 mg-35 mcg (28) tablet 2015-02 00:00: 00 Yes [id number] 1{tbl} Take 1 tablet by mouth daily. [facility] norgestimat e-ethinyl estradiol (ORTHO TRI-CYCLEN, 28,) 0.18/0.215/ 0.25 mg-35 mcg (28) tablet 2015-02 00:00: 00 Yes [id number] 1{tbl} Take 1 tablet by mouth daily. [facility] norgestimat e-ethinyl estradiol (ORTHO TRI-CYCLEN, 28,) 0.18/0.215/ 0.25 mg-35 mcg (28) tablet 2015-02 00:00: 00 Yes [id number] 1{tbl} Take 1 tablet by mouth daily. [facility] norgestimat e-ethinyl estradiol (ORTHO TRI-CYCLEN, 28,) 0.18/0.215/ 0.25 mg-35 mcg (28) tablet 2015-02 00:00: 00 Yes [id number] 1{tbl} Take 1 tablet by mouth daily. [facility] norgestimat e-ethinyl estradiol (ORTHO TRI-CYCLEN, 28,) 0.18/0.215/ 0.25 mg-35 mcg (28) tablet 2015-02 00:00: 00 Yes [id number] 1{tbl} Take 1 tablet by mouth daily. [facility] norgestimat e-ethinyl estradiol (ORTHO TRI-CYCLEN, 28,) 0.18/0.215/ 0.25 mg-35 mcg (28) tablet 2015-02 00:00: 00 Yes [id number] 1{tbl} Take 1 tablet by mouth daily. [facility] norgestimat e-ethinyl estradiol (ORTHO TRI-CYCLEN, 28,) 0.18/0.215/ 0.25 mg-35 mcg (28) tablet 2015-02 00:00: 00 Yes [id number] 1{tbl} Take 1 tablet by mouth daily. [facility] norgestimat e-ethinyl estradiol (ORTHO TRI-CYCLEN, 28,) 0.18/0.215/ 0.25 mg-35 mcg (28) tablet 2015-02 00:00: 00 10-19 00:00 :00 No [id number] 1{tbl} Take 1 tablet by mouth daily. [facility] norgestimat e-ethinyl estradiol (ORTHO TRI-CYCLEN, 28,) 0.18/0.215/ 0.25 mg-35 mcg (28) tablet 2015-02 00:00: 00 10-19 00:00 :00 No [id number] 1{tbl} Take 1 tablet by mouth daily. [facility] IBUPROFEN IBUPROFEN Yes Cristina Burdena not defined [facility] Tamsulosin HCl 0.4 MG Tamsulosin HCl 0.4 MG No 1{capsu le} QD Tamsulosin HCl 0.4 MG Simethicone 125 MG Simethicone 125 MG No 1{table t_after _meals_ and_at_ bedtime _as_nee ded} QID Simethicon e 125 MG Tamsulosin HCl 0.4 MG Tamsulosin HCl 0.4 MG No 1{capsu le} QD Tamsulosin HCl 0.4 MG Simethicone 125 MG Simethicone 125 MG No 1{table t_after _meals_ and_at_ bedtime _as_nee ded} QID Simethicon e 125 MG Immunizations Ordered Immunization Name Filled Immunization Name Date Status Comments Source SARS-COV-2 COVID-19 VACCINE - (MODERNA) 2020-07-22 00:00:00 Completed [facility] SARS-COV-2 COVID-19 VACCINE - (MODERNA) 2020-07-22 00:00:00 Completed [facility] SARS-COV-2 COVID-19 VACCINE - (MODERNA) 2020-07-22 00:00:00 Completed [facility] SARS-COV-2 COVID-19 VACCINE - (MODERNA) 2020-07-22 00:00:00 Completed [facility] SARS-COV-2 COVID-19 VACCINE - (MODERNA) 2020-07-22 00:00:00 Completed [facility] SARS-COV-2 COVID-19 VACCINE - (MODERNA) 2020-07-22 00:00:00 Completed [facility] SARS-COV-2 COVID-19 VACCINE - (MODERNA) 2020-07-22 00:00:00 Completed [facility] SARS-COV-2 COVID-19 VACCINE - (MODERNA) 2020-07-22 00:00:00 Completed [facility] SARS-COV-2 COVID-19 VACCINE - (MODERNA) 2020-07-22 00:00:00 Completed [facility] SARS-COV-2 COVID-19 VACCINE - (MODERNA) 2020-07-22 00:00:00 Completed [facility] SARS-COV-2 COVID-19 VACCINE - (MODERNA) 2020-07-22 00:00:00 Completed [facility] SARS-COV-2 COVID-19 VACCINE - (MODERNA) 2020-07-22 00:00:00 Completed [facility] SARS-COV-2 COVID-19 VACCINE - (MODERNA) 2020-07-22 00:00:00 Completed [facility] SARS-COV-2 COVID-19 VACCINE - (MODERNA) 2020-07-22 00:00:00 Completed [facility] SARS-COV-2 COVID-19 VACCINE - (MODERNA) 2020-06-24 00:00:00 Completed [facility] SARS-COV-2 COVID-19 VACCINE - (MODERNA) 2020-06-24 00:00:00 Completed [facility] SARS-COV-2 COVID-19 VACCINE - (MODERNA) 2020-06-24 00:00:00 Completed [facility] SARS-COV-2 COVID-19 VACCINE - (MODERNA) 2020-06-24 00:00:00 Completed [facility] SARS-COV-2 COVID-19 VACCINE - (MODERNA) 2020-06-24 00:00:00 Completed [facility] SARS-COV-2 COVID-19 VACCINE - (MODERNA) 2020-06-24 00:00:00 Completed [facility] SARS-COV-2 COVID-19 VACCINE - (MODERNA) 2020-06-24 00:00:00 Completed [facility] SARS-COV-2 COVID-19 VACCINE - (MODERNA) 2020-06-24 00:00:00 Completed [facility] SARS-COV-2 COVID-19 VACCINE - (MODERNA) 2020-06-24 00:00:00 Completed [facility] SARS-COV-2 COVID-19 VACCINE - (MODERNA) 2020-06-24 00:00:00 Completed [facility] SARS-COV-2 COVID-19 VACCINE - (MODERNA) 2020-06-24 00:00:00 Completed [facility] SARS-COV-2 COVID-19 VACCINE - (MODERNA) 2020-06-24 00:00:00 Completed [facility] SARS-COV-2 COVID-19 VACCINE - (MODERNA) 2020-06-24 00:00:00 Completed [facility] SARS-COV-2 COVID-19 VACCINE - (MODERNA) 2020-06-24 00:00:00 Completed [facility] Influenza Virus Vaccine Quad .5 mL IM 6+ MO 2018-12-19 00:00:00 Completed [facility] Influenza Virus Vaccine Quad .5 mL IM 6+ MO 2018-12-19 00:00:00 Completed [facility] Influenza Virus Vaccine Quad .5 mL IM 6+ MO 2018-12-19 00:00:00 Completed [facility] Influenza Virus Vaccine Quad .5 mL IM 6+ MO 2018-12-19 00:00:00 Completed [facility] Influenza Virus Vaccine Quad .5 mL IM 6+ MO 2018-12-19 00:00:00 Completed [facility] Influenza Virus Vaccine Quad .5 mL IM 6+ MO 2018-12-19 00:00:00 Completed [facility] Influenza Virus Vaccine Quad .5 mL IM 6+ MO 2018-12-19 00:00:00 Completed [facility] Influenza Virus Vaccine Quad .5 mL IM 6+ MO 2018-12-19 00:00:00 Completed [facility] Influenza Virus Vaccine Quad .5 mL IM 6+ MO 2018-12-19 00:00:00 Completed [facility] Influenza Virus Vaccine Quad .5 mL IM 6+ MO 2018-12-19 00:00:00 Completed [facility] Influenza Virus Vaccine Quad .5 mL IM 6+ MO 2018-12-19 00:00:00 Completed [facility] Influenza Virus Vaccine Quad .5 mL IM 6+ MO 2018-12-19 00:00:00 Completed [facility] Influenza Virus Vaccine Quad .5 mL IM 6+ MO 2018-12-19 00:00:00 Completed [facility] Influenza Virus Vaccine Quad .5 mL IM 6+ MO 2018-12-19 00:00:00 Completed [facility] Influenza Virus Vaccine Quad .5 mL IM 6+ MO 2018-12-19 00:00:00 Completed [facility] Influenza Virus Vaccine Quad .5 mL IM 6+ MO 2018-12-19 00:00:00 Completed [facility] Influenza Virus Vaccine Quad .5 mL IM 6+ MO 2018-12-19 00:00:00 Completed [facility] Influenza Virus Vaccine Quad .5 mL IM 6+ MO (FLUZONE/FLULAVAL/F LUARIX) 2018-12-19 00:00:00 Completed [facility] Influenza Virus Vaccine Quad .5 mL IM 6+ MO 2018-12-19 00:00:00 Completed [facility] Influenza Virus Vaccine Quad .5 mL IM 6+ MO (FLUZONE/FLULAVAL/F LUARIX) 2018-12-19 00:00:00 Completed [facility] Influenza Virus Vaccine Quad .5 mL IM 6+ MO (FLUZONE/FLULAVAL/F LUARIX) 2018-12-19 00:00:00 Completed [facility] Influenza Virus Vaccine Quad .5 mL IM 6+ MO 2018-12-19 00:00:00 Completed [facility] Influenza Virus Vaccine Quad .5 mL IM 6+ MO 2018-12-19 00:00:00 Completed [facility] Influenza Virus Vaccine Quad .5 mL IM 6+ MO 2018-12-19 00:00:00 Completed [facility] Influenza, seasonal, inj 2018-01-26 00:00:00 Completed TDAP 2017-04-27 00:00:00 Completed [facility] TDAP 2017-04-27 00:00:00 Completed [facility] TDAP 2017-04-27 00:00:00 Completed [facility] TDAP 2017-04-27 00:00:00 Completed [facility] TDAP 2017-04-27 00:00:00 Completed [facility] TDAP 2017-04-27 00:00:00 Completed [facility] TDAP 2017-04-27 00:00:00 Completed [facility] TDAP 2017-04-27 00:00:00 Completed [facility] TDAP 2017-04-27 00:00:00 Completed [facility] TDAP 2017-04-27 00:00:00 Completed [facility] TDAP 2017-04-27 00:00:00 Completed [facility] TDAP 2017-04-27 00:00:00 Completed [facility] TDAP 2017-04-27 00:00:00 Completed [facility] TDAP 2017-04-27 00:00:00 Completed [facility] TDAP > 7 Years-Adacel TDAP > 7 Years-Adacel 2017-04-27 00:00:00 Completed [facility] Tdap 2015-08-19 00:00:00 Completed [facility] TDAP 2015-08-19 00:00:00 Completed [facility] TDAP 2015-08-19 00:00:00 Completed [facility] Tdap 2015-08-19 00:00:00 Completed [facility] TDAP 2015-08-19 00:00:00 Completed [facility] TDAP 2015-08-19 00:00:00 Completed [facility] TDAP 2015-08-19 00:00:00 Completed [facility] TDAP 2015-08-19 00:00:00 Completed [facility] TDAP 2015-08-19 00:00:00 Completed [facility] TDAP 2015-08-19 00:00:00 Completed [facility] TDAP 2015-08-19 00:00:00 Completed [facility] TDAP 2015-08-19 00:00:00 Completed [facility] Tdap 2015-08-19 00:00:00 Completed [facility] TDAP 2015-08-19 00:00:00 Completed [facility] TDAP 2015-08-19 00:00:00 Completed [facility] TDAP 2015-08-19 00:00:00 Completed [facility] TDAP 2015-08-19 00:00:00 Completed [facility] TDAP 2015-08-19 00:00:00 Completed [facility] Tdap 2015-08-19 00:00:00 Completed [facility] TDAP 2015-08-19 00:00:00 Completed [facility] TDAP 2015-08-19 00:00:00 Completed [facility] Tdap 2015-08-19 00:00:00 Completed [facility] Tdap 2015-08-19 00:00:00 Completed [facility] Tdap 2015-08-19 00:00:00 Completed [facility] PPD (TB) 2015-06-16 00:00:00 Completed [facility] PPD (TB) 2015-06-16 00:00:00 Completed [facility] PPD (TB) 2015-06-16 00:00:00 Completed [facility] PPD (TB) 2015-06-16 00:00:00 Completed [facility] PPD (TB) 2015-06-16 00:00:00 Completed [facility] PPD (TB) 2015-06-16 00:00:00 Completed [facility] PPD (TB) 2015-06-16 00:00:00 Completed [facility] PPD (TB) 2015-06-16 00:00:00 Completed [facility] PPD (TB) 2015-06-16 00:00:00 Completed [facility] PPD (TB) 2015-06-16 00:00:00 Completed [facility] PPD (TB) 2015-06-16 00:00:00 Completed [facility] PPD (TB) 2015-06-16 00:00:00 Completed [facility] PPD (TB) 2015-06-16 00:00:00 Completed [facility] PPD (TB) 2015-06-16 00:00:00 Completed [facility] PPD (TB) 2015-06-16 00:00:00 Completed [facility] PPD (TB) 2015-06-16 00:00:00 Completed [facility] PPD (TB) 2015-06-16 00:00:00 Completed [facility] PPD (TB) 2015-06-16 00:00:00 Completed [facility] PPD (TB) 2015-06-16 00:00:00 Completed [facility] PPD (TB) 2015-06-16 00:00:00 Completed [facility] PPD (TB) 2015-06-16 00:00:00 Completed [facility] PPD (TB) 2015-06-16 00:00:00 Completed [facility] PPD (TB) 2015-06-16 00:00:00 Completed [facility] PPD (TB) 2015-06-16 00:00:00 Completed [facility] PPD (TB) Unknown Completed [facility] TDAP Unknown Completed [facility] Influenza Virus Vaccine Quad .5 mL IM 6+ MO (FLUZONE/FLULAVAL/F LUARIX) Unknown Completed [facility] TDAP Unknown Completed [facility] SARS-COV-2 COVID-19 VACCINE - (MODERNA) Unknown Completed [facility] SARS-COV-2 COVID-19 VACCINE - (MODERNA) Unknown Completed [facility] PPD (TB) Unknown Completed [facility] TDAP Unknown Completed [facility] Influenza Virus Vaccine Quad .5 mL IM 6+ MO (FLUZONE/FLULAVAL/F LUARIX) Unknown Completed [facility] TDAP Unknown Completed [facility] SARS-COV-2 COVID-19 VACCINE - (MODERNA) Unknown Completed [facility] SARS-COV-2 COVID-19 VACCINE - (MODERNA) Unknown Completed [facility] PPD (TB) Unknown Completed [facility] TDAP Unknown Completed [facility] Influenza Virus Vaccine Quad .5 mL IM 6+ MO (FLUZONE/FLULAVAL/F LUARIX) Unknown Completed [facility] TDAP Unknown Completed [facility] SARS-COV-2 COVID-19 VACCINE - (MODERNA) Unknown Completed [facility] SARS-COV-2 COVID-19 VACCINE - (MODERNA) Unknown Completed [facility] PPD (TB) Unknown Completed [facility] TDAP Unknown Completed [facility] Influenza Virus Vaccine Quad .5 mL IM 6+ MO (FLUZONE/FLULAVAL/F LUARIX) Unknown Completed [facility] TDAP Unknown Completed [facility] SARS-COV-2 COVID-19 VACCINE - (MODERNA) Unknown Completed [facility] SARS-COV-2 COVID-19 VACCINE - (MODERNA) Unknown Completed [facility] PPD (TB) Unknown Completed [facility] TDAP Unknown Completed [facility] Influenza Virus Vaccine Quad .5 mL IM 6+ MO (FLUZONE/FLULAVAL/F LUARIX) Unknown Completed [facility] TDAP Unknown Completed [facility] SARS-COV-2 COVID-19 VACCINE - (MODERNA) Unknown [facility] SARS-COV-2 COVID-19 VACCINE - (MODERNA) Unknown Completed [facility] PPD (TB) Unknown Completed [facility] TDAP Unknown Completed [facility] Influenza Virus Vaccine Quad .5 mL IM 6+ MO (FLUZONE/FLULAVAL/F LUARIX) Unknown Completed [facility] TDAP Unknown Completed [facility] SARS-COV-2 COVID-19 VACCINE - (MODERNA) Unknown Completed [facility] SARS-COV-2 COVID-19 VACCINE - (MODERNA) Unknown Completed [facility] PPD (TB) Unknown Completed [facility] TDAP Unknown Completed [facility] Influenza Virus Vaccine Quad .5 mL IM 6+ MO (FLUZONE/FLULAVAL/F LUARIX) Unknown Completed [facility] TDAP Unknown Completed [facility] SARS-COV-2 COVID-19 VACCINE - (MODERNA) [facility]ACC[facility] - (MODERNA) Unknown Completed [facility] PPD (TB) Unknown Completed [facility] TDAP Unknown Completed [facility] Influenza Virus Vaccine Quad .5 mL IM 6+ MO (FLUZONE/FLULAVAL/F LUARIX) Unknown Completed [facility] TDAP Unknown Completed [facility] SARS-COV-2 COVID-19 VACCINE - (MODERNA) Unknown Completed [facility] SARS-COV-2 COVID-19 VACCINE - (MODERNA) Unknown Completed [facility] PPD (TB) Unknown Completed [facility] TDAP Unknown Completed [facility] Influenza Virus Vaccine Quad .5 mL IM 6+ MO (FLUZONE/FLULAVAL/F LUARIX) Unknown Completed [facility] TDAP Unknown Completed [facility] SARS-COV-2 COVID-19 VACCINE - (MODERNA) Unknown Completed [facility] SARS-COV-2 COVID-19 VACCINE - (MODERNA) Unknown Completed [facility] PPD (TB) Unknown Completed [facility] TDAP Unknown Completed [facility] Influenza Virus Vaccine Quad .5 mL IM 6+ MO (FLUZONE/FLULAVAL/F LUARIX) Unknown Completed [facility] TDAP Unknown Completed [facility] SARS-COV-2 COVID-19 VACCINE - (MODERNA) Unknown [facility]pleted [facility] SARS-COV-2 COVID-19 VACCINE - (MODERNA) Unknown Completed [facility] PPD (TB) Unknown Completed [facility] TDAP Unknown Completed [facility] Influenza Virus Vaccine Quad .5 mL IM 6+ MO (FLUZONE/FLULAVAL/F LUARIX) Unknown Completed [facility] TDAP Unknown Completed [facility] SARS-COV-2 COVID-19 VACCINE - (MODERNA) Unknown Completed [facility] SARS-COV-2 COVID-19 VACCINE - (MODERNA) Unknown Completed [facility] PPD (TB) Unknown Completed [facility] TDAP Unknown Completed [facility] Influenza Virus Vaccine Quad .5 mL IM 6+ MO (FLUZONE/FLULAVAL/F LUARIX) Unknown Completed [facility] TDAP Unknown Completed [facility] SARS-COV-2 COVID-19 VACCINE - (MODERNA) Unknown Completed [facility] SARS-COV-2 COVID-19 VACCINE - (MODERNA) Unknown Completed [facility] PPD (TB) Unknown Completed [facility] TDAP Unknown Completed [facility] Influenza Virus Vaccine Quad .5 mL IM 6+ MO (FLUZONE/FLULAVAL/F LUARIX) Unknown Completed [facility] TDAP Unknown Completed [facility] SARS-COV-2 COVID-19 VACCINE - (MODERNA) Unknown Completed [facility] SARS-COV-2 COVID-19 VACCINE - (MODERNA) Unknown Completed [facility] PPD (TB) Unknown Completed [facility] TDAP Unknown Completed [facility] Influenza Virus Vaccine Quad .5 mL IM 6+ MO (FLUZONE/FLULAVAL/F LUARIX) Unknown Completed [facility] TDAP Unknown Completed [facility] SARS-COV-2 COVID-19 VACCINE - (MODERNA) Unknown Completed [facility] SARS-COV-2 COVID-19 VACCINE - (MODERNA) Unknown Completed [facility] PPD (TB) Unknown Completed [facility] TDAP Unknown Completed [facility] Influenza Virus Vaccine Quad .5 mL IM 6+ MO (FLUZONE/FLULAVAL/F LUARIX) Unknown Completed [facility] TDAP Unknown Completed [facility] SARS-COV-2 COVID-19 VACCINE - (MODERNA) Unknown Completed [facility] SARS-COV-2 COVID-19 VACCINE - (MODERNA) Unknown Completed [facility] PPD (TB) Unknown Completed [facility] TDAP Unknown Completed [facility] Influenza Virus Vaccine Quad .5 mL IM 6+ MO (FLUZONE/FLULAVAL/F LUARIX) Unknown Completed [facility] TDAP Unknown Completed [facility] SARS-COV-2 COVID-19 VACCINE - (MODERNA) Unknown Completed [facility] SARS-COV-2 COVID-19 VACCINE - (MODERNA) Unknown Completed [facility] PPD (TB) Unknown Completed [facility] TDAP Unknown Completed [facility] Influenza Virus Vaccine Quad .5 mL IM 6+ MO (FLUZONE/FLULAVAL/F LUARIX) Unknown Completed [facility] TDAP Unknown Completed [facility] SARS-COV-2 COVID-19 VACCINE - (MODERNA) Unknown [facility] VACCINE - (MODERNA) Unknown Completed [facility] PPD (TB) Unknown Completed [facility] TDAP Unknown Completed [facility] Influenza Virus Vaccine Quad .5 mL IM 6+ MO (FLUZONE/FLULAVAL/F LUARIX) Unknown Completed [facility] TDAP Unknown Completed [facility] SARS-COV-2 COVID-19 VACCINE - (MODERNA) Unknown [facility] COVID-19 VACCINE - (MODERNA) Unknown Completed [facility] PPD (TB) Unknown Completed [facility] TDAP Unknown Completed [facility] Influenza Virus Vaccine Quad .5 mL IM 6+ MO (FLUZONE/FLULAVAL/F LUARIX) Unknown Completed [facility] TDAP Unknown Completed [facility] SARS-COV-2 COVID-19 VACCINE - (MODERNA) Unknown Completed [facility] SARS-COV-2 COVID-19 VACCINE - (MODERNA) Unknown [facility] Completed [facility] TDAP Unknown Completed [facility] Influenza Virus Vaccine Quad .5 mL IM 6+ MO (FLUZONE/FLULAVAL/F LUARIX) Unknown Completed [facility] TDAP Unknown Completed [facility] SARS-COV-2 COVID-19 VACCINE - (MODERNA) Unknown Completed [facility] SARS-COV-2 COVID-19 VACCINE - (MODERNA) Unknown Completed [facility] PPD (TB) Unknown Completed [facility] TDAP Unknown Completed [facility] Influenza Virus Vaccine Quad .5 mL IM 6+ MO (FLUZONE/FLULAVAL/F LUARIX) Unknown Completed [facility] TDAP Unknown Completed [facility] SARS-COV-2 COVID-19 VACCINE - (MODERNA) Unknown Completed [facility] SARS-COV-2 COVID-19 VACCINE - (MODERNA) Unknown Completed [facility] PPD (TB) Unknown Completed [facility] TDAP Unknown Completed [facility] Influenza Virus Vaccine Quad .5 mL IM 6+ MO (FLUZONE/FLULAVAL/F LUARIX) Unknown Completed [facility] TDAP Unknown Completed [facility] SARS-COV-2 COVID-19 VACCINE - (MODERNA) Unknown Completed [facility] SARS-COV-2 COVID-19 VACCINE - (MODERNA) Unknown Completed [facility] PPD (TB) Unknown Completed [facility] TDAP Unknown Completed [facility] Influenza Virus Vaccine Quad .5 mL IM 6+ MO (FLUZONE/FLULAVAL/F LUARIX) Unknown Completed [facility] TDAP Unknown Completed [facility] SARS-COV-2 COVID-19 VACCINE - (MODERNA) Unknown Completed [facility] SARS-COV-2 COVID-19 VACCINE - (MODERNA) Unknown Completed [facility] PPD (TB) Unknown Completed [facility] TDAP Unknown Completed [facility] Influenza Virus Vaccine Quad .5 mL IM 6+ MO (FLUZONE/FLULAVAL/F LUARIX) Unknown Completed [facility] TDAP Unknown Completed [facility] SARS-COV-2 COVID-19 VACCINE - (MODERNA) Unknown Completed [facility] SARS-COV-2 COVID-19 VACCINE - (MODERNA) Unknown Completed [facility] PPD (TB) Unknown Completed [facility] TDAP Unknown Completed [facility] Influenza Virus Vaccine Quad .5 mL IM 6+ MO (FLUZONE/FLULAVAL/F LUARIX) Unknown Completed [facility] TDAP Unknown Completed [facility] SARS-COV-2 COVID-19 VACCINE - (MODERNA) Unknown Completed [facility] SARS-COV-2 COVID-19 VACCINE - (MODERNA) Unknown Completed [facility] PPD (TB) Unknown Completed [facility] TDAP Unknown Completed [facility] Influenza Virus Vaccine Quad .5 mL IM 6+ MO (FLUZONE/FLULAVAL/F LUARIX) Unknown Completed [facility] TDAP Unknown Completed [facility] SARS-COV-2 COVID-19 VACCINE - (MODERNA) Unknown Completed [facility] SARS-COV-2 COVID-19 VACCINE - (MODERNA) Unknown Completed [facility] PPD (TB) Unknown Completed [facility] TDAP Unknown Completed [facility] Influenza Virus Vaccine Quad .5 mL IM 6+ MO (FLUZONE/FLULAVAL/F LUARIX) Unknown Completed [facility] TDAP Unknown Completed [facility] SARS-COV-2 COVID-19 VACCINE - (MODERNA) Unknown Completed [facility] SARS-COV-2 COVID-19 VACCINE - (MODERNA) Unknown Completed [facility] PPD (TB) Unknown Completed [facility] TDAP Unknown Completed [facility] Influenza Virus Vaccine Quad .5 mL IM 6+ MO (FLUZONE/FLULAVAL/F LUARIX) Unknown Completed [facility] TDAP Unknown Completed [facility] SARS-COV-2 COVID-19 VACCINE - (MODERNA) Unknown Completed [facility] SARS-COV-2 COVID-19 VACCINE - (MODERNA) Unknown Completed [facility] PPD (TB) Unknown Completed [facility] TDAP Unknown Completed [facility] Influenza Virus Vaccine Quad .5 mL IM 6+ MO (FLUZONE/FLULAVAL/F LUARIX) Unknown Completed [facility] TDAP Unknown Completed [facility] SARS-COV-2 COVID-19 VACCINE - (MODERNA) Unknown Completed [facility] SARS-COV-2 COVID-19 VACCINE - (MODERNA) Unknown [facility] PPD (TB) Unknown Completed [facility] TDAP Unknown Completed [facility] Influenza Virus Vaccine Quad .5 mL IM 6+ MO (FLUZONE/FLULAVAL/F LUARIX) Unknown Completed [facility] TDAP Unknown Completed [facility] SARS-COV-2 COVID-19 VACCINE - (MODERNA) Unknown Completed [facility] SARS-COV-2 COVID-19 VACCINE - (MODERNA) Unknown Completed [facility] PPD (TB) Unknown Completed [facility] TDAP Unknown Completed [facility] Influenza Virus Vaccine Quad .5 mL IM 6+ MO (FLUZONE/FLULAVAL/F LUARIX) Unknown Completed [facility] TDAP Unknown Completed [facility] SARS-COV-2 COVID-19 VACCINE - (MODERNA) Unknown Completed [facility] SARS-COV-2 COVID-19 VACCINE - (MODERNA) Unknown Completed [facility] PPD (TB) Unknown Completed [facility] TDAP Unknown Completed [facility] Influenza Virus Vaccine Quad .5 mL IM 6+ MO (FLUZONE/FLULAVAL/F LUARIX) Unknown Completed [facility] TDAP Unknown Completed [facility] SARS-COV-2 COVID-19 VACCINE - (MODERNA) Unknown Completed [facility] SARS-COV-2 COVID-19 VACCINE - (MODERNA) Unknown Completed [facility] PPD (TB) Unknown Completed [facility] TDAP Unknown Completed [facility] Influenza Virus Vaccine Quad .5 mL IM 6+ MO (FLUZONE/FLULAVAL/F LUARIX) Unknown Completed [facility] TDAP Unknown Completed [facility] SARS-COV-2 COVID-19 VACCINE - (MODERNA) Unknown Completed [facility] SARS-COV-2 COVID-19 VACCINE - (MODERNA) Unknown Completed [facility] PPD (TB) Unknown Completed [facility] TDAP Unknown Completed [facility] Influenza Virus Vaccine Quad .5 mL IM 6+ MO (FLUZONE/FLULAVAL/F LUARIX) Unknown Completed [facility] TDAP Unknown Completed [facility] SARS-COV-2 COVID-19 VACCINE - (MODERNA) Unknown Completed [facility] SARS-COV-2 COVID-19 VACCINE - (MODERNA) Unknown Completed [facility] PPD (TB) Unknown Completed [facility] TDAP Unknown Completed [facility] Influenza Virus Vaccine Quad .5 mL IM 6+ MO (FLUZONE/FLULAVAL/F LUARIX) Unknown Completed [facility] TDAP Unknown Completed [facility] SARS-COV-2 COVID-19 VACCINE - (MODERNA) Unknown Completed [facility] SARS-COV-2 COVID-19 VACCINE - (MODERNA) Unknown Completed [facility] PPD (TB) Unknown Completed [facility] TDAP Unknown Completed [facility] Influenza Virus Vaccine Quad .5 mL IM 6+ MO (FLUZONE/FLULAVAL/F LUARIX) Unknown Completed [facility] TDAP Unknown Completed [facility] SARS-COV-2 COVID-19 VACCINE - (MODERNA) Unknown Completed [facility] SARS-COV-2 COVID-19 VACCINE - (MODERNA) Unknown Completed [facility] PPD (TB) Unknown Completed [facility] TDAP Unknown Completed [facility] Influenza Virus Vaccine Quad .5 mL IM 6+ MO (FLUZONE/FLULAVAL/F LUARIX) Unknown Completed [facility] TDAP Unknown Completed [facility] SARS-COV-2 COVID-19 VACCINE - (MODERNA) Unknown Completed [facility] SARS-COV-2 COVID-19 VACCINE - (MODERNA) Unknown Completed [facility] PPD (TB) Unknown Completed [facility] TDAP Unknown Completed [facility] Influenza Virus Vaccine Quad .5 mL IM 6+ MO (FLUZONE/FLULAVAL/F LUARIX) Unknown Completed [facility] TDAP Unknown Completed [facility] SARS-COV-2 COVID-19 VACCINE - (MODERNA) Unknown [facility] VACCINE - (MODERNA) Unknown Completed [facility] PPD (TB) Unknown Completed [facility] TDAP Unknown Completed [facility] Influenza Virus Vaccine Quad .5 mL IM 6+ MO (FLUZONE/FLULAVAL/F LUARIX) Unknown Completed [facility] TDAP Unknown Completed [facility] SARS-COV-2 COVID-19 VACCINE - (MODERNA) Unknown Completed [facility] SARS-COV-2 COVID-19 VACCINE - (MODERNA) Unknown Completed [facility] PPD (TB) Unknown Completed [facility] TDAP Unknown Completed [facility] Influenza Virus Vaccine Quad .5 mL IM 6+ MO (FLUZONE/FLULAVAL/F LUARIX) Unknown Completed [facility] TDAP Unknown Completed [facility] SARS-COV-2 COVID-19 VACCINE - (MODERNA) Unknown [facility] VACCINE - (MODERNA) Unknown Completed [facility] PPD (TB) Unknown Completed [facility] TDAP Unknown Completed [facility] Influenza Virus Vaccine Quad .5 mL IM 6+ MO (FLUZONE/FLULAVAL/F LUARIX) Unknown Completed [facility] TDAP Unknown Completed [facility] SARS-COV-2 COVID-19 VACCINE - (MODERNA) Unknown [facility]-19 VACCINE - (MODERNA) Unknown Completed [facility] PPD (TB) Unknown Completed [facility] TDAP Unknown Completed [facility] Influenza Virus Vaccine Quad .5 mL IM 6+ MO (FLUZONE/FLULAVAL/F LUARIX) Unknown Completed [facility] TDAP Unknown Completed [facility] SARS-COV-2 COVID-19 VACCINE - (MODERNA) Unknown Completed [facility] SARS-COV-2 COVID-19 VACCINE - (MODERNA) Unknown [facility] Completed [facility] TDAP Unknown Completed [facility] Influenza Virus Vaccine Quad .5 mL IM 6+ MO (FLUZONE/FLULAVAL/F LUARIX) Unknown Completed [facility] TDAP Unknown Completed [facility] SARS-COV-2 COVID-19 VACCINE - (MODERNA) Unknown Completed [facility] SARS-COV-2 COVID-19 VACCINE - (MODERNA) Unknown Completed [facility] PPD (TB) Unknown Completed [facility] TDAP Unknown Completed [facility] Influenza Virus Vaccine Quad .5 mL IM 6+ MO (FLUZONE/FLULAVAL/F LUARIX) Unknown Completed [facility] TDAP Unknown Completed [facility] SARS-COV-2 COVID-19 VACCINE - (MODERNA) Unknown Completed [facility] SARS-COV-2 COVID-19 VACCINE - (MODERNA) Unknown Completed [facility] PPD (TB) Unknown Completed [facility] TDAP Unknown Completed [facility] Influenza Virus Vaccine Quad .5 mL IM 6+ MO (FLUZONE/FLULAVAL/F LUARIX) Unknown Completed [facility] TDAP Unknown Completed [facility] SARS-COV-2 COVID-19 VACCINE - (MODERNA) Unknown Completed [facility] SARS-COV-2 COVID-19 VACCINE - (MODERNA) Unknown Completed [facility] PPD (TB) Unknown Completed [facility] TDAP Unknown Completed [facility] Influenza Virus Vaccine Quad .5 mL IM 6+ MO (FLUZONE/FLULAVAL/F LUARIX) Unknown Completed [facility] TDAP Unknown Completed [facility] SARS-COV-2 COVID-19 VACCINE - (MODERNA) Unknown [facility] SARS-COV-2 COVID-19 VACCINE - (MODERNA) Unknown Completed [facility] PPD (TB) Unknown Completed [facility] TDAP Unknown Completed [facility] Influenza Virus Vaccine Quad .5 mL IM 6+ MO (FLUZONE/FLULAVAL/F LUARIX) Unknown Completed [facility] TDAP Unknown Completed [facility] SARS-COV-2 COVID-19 VACCINE - (MODERNA) Unknown Completed [facility] SARS-COV-2 COVID-19 VACCINE - (MODERNA) Unknown Completed [facility] Adacel (Tdap) Adacel (Tdap) Unknown Completed [facility] Adacel (Tdap) Adacel (Tdap) Unknown Completed [facility] Vital Signs Vital Name Observation Time Observation Value Comments S kobe Systolic blood pressure 2023-03-24 15:42:00 117 mm[Hg] [facility] Diastolic blood pressure 2023-03-24 15:42:00 81 mm[Hg] [facility] Heart rate 2023-03-24 15:42:00 74 /min [facility] Body temperature 2023-03-24 15:42:00 36.72 [place] [facility] Respiratory rate 2023-03-24 15:42:00 16 /min [facility] Body height 2023-03-24 15:42:00 149.9 cm [facility] Body weight 2023-03-24 15:42:00 68.765 kg [facility] BMI 2023-03-24 15:42:00 30.62 kg/m2 [facility] Oxygen saturation in Arterial blood by Pulse oximetry 2023-03-24 15:42:00 98 /min [facility] height 2023-02-25 16:00:00 58 [in_i] Commo n [facility] weight 2023-02-25 16:00:00 145 [lb_av] Comm on [facility] temperature 2023-02-25 16:00:00 98.6 [degF] Com mon [facility] bmi 2023-02-25 16:00:00 30.3 kg/m2 Commo n [facility] oximetry 2023-02-25 16:00:00 98 % Commo n [facility] respiratory rate 2023-02-25 16:00:00 16 /min [facility] blood pressure systolic 2023-02-25 16:00:00 128 mm[Hg] [facility] blood pressure diastolic 2023-02-25 16:00:00 72 mm[Hg] [facility] Systolic blood pressure 2023-02-10 15:33:00 122 mm[Hg] [facility] Diastolic blood pressure 2023-02-10 15:33:00 77 mm[Hg] [facility] Heart rate 2023-02-10 15:33:00 73 /min [facility] Body temperature 2023-02-10 15:33:00 36.72 [place] [facility] Respiratory rate 2023-02-10 15:33:00 16 /min [facility] Body height 2023-02-10 15:33:00 [facility] 2023-02-10 15:33:00 63.73 kg [facility] BMI 2023-02-10 15:33:00 28.38 kg/m2 [facility] Oxygen saturation in Arterial blood by Pulse oximetry 2023-02-10 15:33:00 100 /min [facility] Systolic blood pressure 2023-01-27 14:57:00 110 mm[Hg] [facility] Diastolic blood pressure 2023-01-27 14:57:00 71 mm[Hg] [facility] Heart rate 2023-01-27 14:57:00 77 /min [facility] Body temperature 2023-01-27 14:57:00 36.33 Tiffanie [facility] Body height 2023-01-27 14:57:00 149.9 cm [facility] 2023-01-27 14:57:00 63.957 kg Univ [facility] BMI 2023-01-27 14:57:00 28.48 kg/m2 [facility] Oxygen saturation in Arterial blood by Pulse oximetry 2023-01-27 14:57:00 96 /min [facility] Systolic blood pressure 2023-01-17 22:00:00 129 mm[Hg] [facility] Diastolic blood pressure 2023-01-17 22:00:00 72 mm[Hg] [facility] Heart rate 2023-01-17 22:00:00 98 /min [facility] Body temperature 2023-01-17 22:00:00 36.89 Tiffanie [facility] Respiratory rate 2023-01-17 22:00:00 18 /min [facility] Oxygen saturation in Arterial blood by Pulse oximetry 2023-01-17 22:00:00 98 /min [facility] Body height 2023-01-15 15:30:00 149.9 cm [facility] Body weight 2023-01-15 15:30:00 71.215 kg [facility] BMI 2023-01-15 15:30:00 31.71 kg/m2 [facility] Systolic blood pressure 2023-01-04 17:28:00 107 mm[Hg] [facility] Diastolic blood pressure 2023-01-04 17:28:00 61 mm[Hg] [facility] Heart rate 2023-01-04 17:28:00 102 /min [facility] Body temperature 2023-01-04 17:28:00 37.94 Tiffanie [facility] Respiratory rate 2023-01-04 17:28:00 16 /min [facility] Oxygen saturation in Arterial blood by Pulse oximetry 2023-01-04 17:28:00 97 /min [facility] Body weight 2022-12-31 12:00:00 71.623 kg [facility] BMI 2022-12-31 12:00:00 31.89 kg/m2 [facility] Body height 2022-12-18 18:19:00 149.9 cm [facility] Systolic blood pressure 2022-12-18 20:26:00 86 mm[Hg] [facility] Diastolic blood pressure 2022-12-18 20:26:00 57 mm[Hg] [facility] Heart rate 2022-12-18 20:26:00 131 /min [facility] Body temperature 2022-12-18 20:26:00 36.39 Tiffanie [facility] Respiratory rate 2022-12-18 20:26:00 29 /min [facility] Body weight 2022-12-18 20:26:00 79.379 kg Univ [facility] BMI 2022-12-18 20:26:00 36.94 kg/m2 [facility] Oxygen saturation in Arterial blood by Pulse oximetry 2022-12-18 20:26:00 97 /min [facility] Body height 2022-12-18 18:19:00 149.9 cm [facility] Respiratory rate 2022-12-16 17:28:00 18 /min [facility] Oxygen saturation in Arterial blood by Pulse oximetry 2022-12-16 17:28:00 96 /min [facility] Systolic blood pressure 2022-12-16 17:26:00 111 mm[Hg] [facility] Diastolic blood pressure 2022-12-16 17:26:00 64 mm[Hg] [facility] Body temperature 2022-12-16 16:45:00 36.33 Tiffanie [facility] Heart rate 2022-12-16 16:44:00 72 /min [facility] Body height 2022-12-08 18:10:00 149.9 cm [facility] Body weight 2022-12-08 18:10:00 71.668 kg [facility] BMI 2022-12-08 18:10:00 31.91 kg/m2 [facility] Systolic blood pressure 2022-12-13 20:00:00 131 mm[Hg] [facility] Diastolic blood pressure 2022-12-13 20:00:00 75 mm[Hg] [facility] Heart rate 2022-12-13 20:00:00 71 /min [facility] Body temperature 2022-12-13 20:00:00 36.83 Tiffanie [facility] Respiratory rate 2022-12-13 20:00:00 18 /min [facility] Body height 2022-12-13 20:00:00 160 cm [facility] Body weight 2022-12-13 20:00:00 72.576 kg [facility] BMI 2022-12-13 20:00:00 28.34 kg/m2 [facility] blood pressure 2022-12-13 19:28:00 131 mm[Hg] [facility] Diastolic blood pressure 2022-12-13 19:28:00 75 mm[Hg] [facility] Heart rate 2022-12-13 19:28:00 71 /min [facility] Body temperature 2022-12-13 19:28:00 36.83 Tiffanie [facility] Respiratory rate 2022-12-13 19:28:00 17 /min [facility] Body height 2022-12-13 19:28:00 160 cm [facility] Body weight 2022-12-13 19:28:00 72.848 kg [facility] BMI 2022-12-13 19:28:00 28.45 kg/m2 [facility] Systolic blood pressure 2022-11-29 16:32:00 126 mm[Hg] [facility] Diastolic blood pressure 2022-11-29 16:32:00 78 mm[Hg] [facility] Heart rate 2022-11-29 16:32:00 75 /min [facility] Body temperature 2022-11-29 16:32:00 36.72 Tiffanie [facility] Respiratory rate 2022-11-29 16:32:00 16 /min [facility] Body height 2022-11-29 16:32:00 149.9 cm [facility] Body weight 2022-11-29 16:32:00 71.668 kg [facility] BMI 2022-11-29 16:32:00 31.91 kg/m2 [facility] Systolic blood pressure 2022-11-28 01:23:00 137 mm[Hg] [facility] Diastolic blood pressure 2022-11-28 01:23:00 91 mm[Hg] [facility] Heart rate 2022-11-28 01:23:00 68 /min [facility] Body temperature 2022-11-28 01:23:00 37.17 Tiffanie [facility] Respiratory rate 2022-11-28 01:23:00 18 /min [facility] Body height 2022-11-28 01:23:00 149.9 cm [facility] Body weight 2022-11-28 01:23:00 72.717 kg Univ [facility] BMI 2022-11-28 01:23:00 32.38 kg/m2 [facility] Oxygen saturation in Arterial blood by Pulse oximetry 2022-11-28 01:23:00 97 /min [facility] Systolic blood pressure 2022-11-22 21:21:00 119 mm[Hg] [facility] Diastolic blood pressure 2022-11-22 21:21:00 73 mm[Hg] [facility] Heart rate 2022-11-22 21:21:00 67 /min [facility] Body temperature 2022-11-22 21:21:00 36.67 Tiffanie [facility] Respiratory rate 2022-11-22 21:21:00 17 /min [facility] Body height 2022-11-22 21:21:00 149.9 cm [facility] Body weight 2022-11-22 21:21:00 72.031 kg [facility] BMI 2022-11-22 21:21:00 32.07 kg/m2 [facility] Systolic blood pressure 2022-11-11 18:14:00 126 mm[Hg] [facility] Diastolic blood pressure 2022-11-11 18:14:00 84 mm[Hg] [facility] Heart rate 2022-11-11 18:14:00 67 /min [facility] Body temperature 2022-11-11 18:14:00 37 Tiffanie [facility] Respiratory rate 2022-11-11 18:14:00 17 /min [facility] Body height 2022-11-11 18:14:00 149.9 cm [facility] Body weight 2022-11-11 18:14:00 71.668 kg [facility] BMI 2022-11-11 18:14:00 31.91 kg/m2 [facility] Oxygen saturation in Arterial blood by Pulse oximetry 2022-11-11 18:14:00 99 /min [facility] Systolic blood pressure 2022-10-29 18:19:00 122 mm[Hg] [facility] Diastolic blood pressure 2022-10-29 18:19:00 74 mm[Hg] [facility] Heart rate 2022-10-29 18:19:00 69 /min [facility] Body temperature 2022-10-29 18:19:00 36.78 Tiffanie [facility] Body height 2022-10-29 18:19:00 149.9 cm [facility] Body weight 2022-10-29 18:19:00 71.94 kg Univ [facility] BMI 2022-10-29 18:19:00 32.03 kg/m2 [facility] Systolic blood pressure 2022-10-19 18:14:00 113 mm[Hg] [facility] Diastolic blood pressure 2022-10-19 18:14:00 73 mm[Hg] [facility] Heart rate 2022-10-19 18:14:00 65 /min [facility] Body temperature 2022-10-19 18:14:00 36.72 Tiffanie [facility] Respiratory rate 2022-10-19 18:14:00 18 /min [facility] Body height 2022-10-19 18:14:00 149.9 cm Univ [facility] Body weight 2022-10-19 18:14:00 70.761 kg Univ [facility] BMI 2022-10-19 18:14:00 31.51 kg/m2 [facility] Systolic blood pressure 2022-09-28 18:42:00 123 mm[Hg] [facility] Diastolic blood pressure 2022-09-28 18:42:00 80 mm[Hg] [facility] Heart rate 2022-09-28 18:42:00 71 /min [facility] Respiratory rate 2022-09-28 18:42:00 18 /min [facility] Body height 2022-09-28 18:42:00 149.9 cm [facility] Body weight 2022-09-28 18:42:00 70.308 kg [facility] BMI 2022-09-28 18:42:00 31.31 kg/m2 [facility] Systolic blood pressure 2022-08-28 00:40:00 119 mm[Hg] [facility] Diastolic blood pressure 2022-08-28 00:40:00 80 mm[Hg] [facility] Heart rate 2022-08-28 00:40:00 73 /min [facility] Body temperature 2022-08-28 00:40:00 36.72 Tiffanie [facility] Respiratory rate 2022-08-28 00:40:00 16 /min [facility] Body height 2022-08-28 00:40:00 149.9 cm [facility] Body weight 2022-08-28 00:40:00 70.761 kg [facility] BMI 2022-08-28 00:40:00 31.51 kg/m2 [facility] Oxygen saturation in Arterial blood by Pulse oximetry 2022-08-28 00:40:00 100 /min [facility] Systolic blood pressure 2022-04-16 15:02:00 115 mm[Hg] [facility] Diastolic blood pressure 2022-04-16 15:02:00 77 mm[Hg] [facility] Heart rate 2022-04-16 15:02:00 61 /min [facility] Respiratory rate 2022-04-16 15:02:00 18 /min [facility] Body height 2022-04-16 15:02:00 149.9 cm [facility] Body weight 2022-04-16 15:02:00 68.947 kg [facility] BMI 2022-04-16 15:02:00 30.70 kg/m2 [facility] Systolic blood pressure 2022-04-05 19:43:00 115 mm[Hg] [facility] Diastolic blood pressure 2022-04-05 19:43:00 78 mm[Hg] [facility] Heart rate 2022-04-05 19:43:00 68 /min [facility] Body temperature 2022-04-05 19:43:00 36.5 Tiffanie [facility] Respiratory rate 2022-04-05 19:43:00 16 /min [facility] Body height 2022-04-05 19:43:00 152.4 cm [facility] Body weight 2022-04-05 19:43:00 70.308 kg Univ [facility] BMI 2022-04-05 19:43:00 30.27 kg/m2 [facility] Systolic blood pressure 2019-04-02 20:02:00 111 mm[Hg] [facility] Diastolic blood pressure 2019-04-02 20:02:00 72 mm[Hg] [facility] Heart rate 2019-04-02 20:02:00 62 /min [facility] Body temperature 2019-04-02 20:02:00 36.56 Tiffanie [facility] Respiratory rate 2019-04-02 20:02:00 16 /min [facility] Body height 2019-04-02 20:02:00 149.9 cm [facility] Body weight 2019-04-02 20:02:00 70.875 kg [facility] BMI 2019-04-02 20:02:00 31.56 kg/m2 [facility] Systolic blood pressure 2019-03-08 15:30:00 113 mm[Hg] [facility] Diastolic blood pressure 2019-03-08 15:30:00 64 mm[Hg] [facility] Heart rate 2019-03-08 15:30:00 69 /min [facility] Body temperature 2019-03-08 15:30:00 36.78 Tiffanie [facility] Respiratory rate 2019-03-08 15:30:00 18 /min [facility] Body height 2019-03-08 15:30:00 149.9 cm [facility] Body weight 2019-03-08 15:30:00 71.351 kg [facility] BMI 2019-03-08 15:30:00 31.77 kg/m2 [facility] Oxygen saturation in Arterial blood by Pulse oximetry 2019-03-08 15:30:00 97 /min [facility] Systolic blood pressure 2023-01-09 17:00:00 112 mm[Hg] [facility] Diastolic blood pressure 2023-01-09 17:00:00 65 mm[Hg] [facility] Heart rate 2023-01-09 17:00:00 83 /min [facility] Body temperature 2023-01-09 17:00:00 36.44 Tiffanie [facility] Respiratory rate 2023-01-09 17:00:00 18 /min [facility] Oxygen saturation in Arterial blood by Pulse oximetry 2023-01-09 17:00:00 100 /min [facility] Body height 2023-01-07 18:46:00 149.9 cm [facility] Body weight 2023-01-07 18:46:00 71.215 kg [facility] BMI 2023-01-07 18:46:00 31.71 kg/m2 [facility] BP Systolic 2021-08-18 13:57:00 106 mm[Hg] BP Diastolic 2021-08-18 13:57:00 68 mm[Hg] Weight Measured 2021-08-18 13:57:00 164.00 pounds Height Measured 2021-08-18 13:57:00 63.00 inches Body Temperature 2021-08-18 13:57:00 98.00 degrees Heart Rate 2021-08-18 13:57:00 80.00 /min Respiratory Rate 2021-08-18 13:57:00 16.00 /min BP Systolic 2021-02-06 10:52:00 105 mm[Hg] BP Diastolic 2021-02-06 10:52:00 66 mm[Hg] Weight Measured 2021-02-06 10:52:00 165.40 pounds Height Measured 2021-02-06 10:52:00 63.00 inches Body Temperature 2021-02-06 10:52:00 98.10 degrees Heart Rate 2021-02-06 10:52:00 74.00 /min Respiratory Rate 2021-02-06 10:52:00 19.00 /min BP Systolic 2021-01-08 17:10:00 117 mm[Hg] BP Diastolic 2021-01-08 17:10:00 77 mm[Hg] Weight Measured 2021-01-08 17:10:00 165.20 pounds Height Measured 2021-01-08 17:10:00 63.00 inches Body Temperature 2021-01-08 17:10:00 98.40 degrees Heart Rate 2021-01-08 17:10:00 63.00 /min Respiratory Rate 2021-01-08 17:10:00 16.00 /min BP Systolic 2020-12-29 16:00:00 123 mm[Hg] BP Diastolic 2020-12-29 16:00:00 78 mm[Hg] Weight Measured 2020-12-29 16:00:00 164.50 pounds Height Measured 2020-12-29 16:00:00 63.00 inches Body Temperature 2020-12-29 16:00:00 98.20 degrees Heart Rate 2020-12-29 16:00:00 75.00 /min Respiratory Rate 2020-12-29 16:00:00 18.00 /min BP Systolic 2020-12-26 16:29:00 128 mm[Hg] BP Diastolic 2020-12-26 16:29:00 80 mm[Hg] Weight Measured 2020-12-26 16:29:00 164.00 pounds Height Measured 2020-12-26 16:29:00 63.00 inches Body Temperature 2020-12-26 16:29:00 98.20 degrees Heart Rate 2020-12-26 16:29:00 80.00 /min Respiratory Rate 2020-12-26 16:29:00 17.00 /min BP Systolic 2020-12-19 16:29:00 126 mm[Hg] BP Diastolic 2020-12-19 16:29:00 79 mm[Hg] Weight Measured 2020-12-19 16:29:00 164.60 pounds Height Measured 2020-12-19 16:29:00 63.00 inches Body Temperature 2020-12-19 16:29:00 98.10 degrees Heart Rate 2020-12-19 16:29:00 79.00 /min Respiratory Rate 2020-12-19 16:29:00 17.00 /min BP Systolic 2020-05-16 15:56:00 119 mm[Hg] BP Diastolic 2020-05-16 15:56:00 76 mm[Hg] Weight Measured 2020-05-16 15:56:00 152.40 pounds Height Measured 2020-05-16 15:56:00 63.00 inches Body Temperature 2020-05-16 15:56:00 98.90 degrees Heart Rate 2020-05-16 15:56:00 71.00 /min Respiratory Rate 2020-05-16 15:56:00 17.00 /min BP Systolic 2020-04-22 15:13:00 100 mm[Hg] BP Diastolic 2020-04-22 15:13:00 66 mm[Hg] Weight Measured 2020-04-22 15:13:00 156.40 pounds Height Measured 2020-04-22 15:13:00 63.00 inches Body Temperature 2020-04-22 15:13:00 98.90 degrees Heart Rate 2020-04-22 15:13:00 77.00 /min Respiratory Rate 2020-04-22 15:13:00 18.00 /min BP Systolic 2019-12-04 13:16:00 108 mm[Hg] BP Diastolic 2019-12-04 13:16:00 74 mm[Hg] Weight Measured 2019-12-04 13:16:00 138.80 pounds Height Measured 2019-12-04 13:16:00 63.00 inches Body Temperature 2019-12-04 13:16:00 99.10 degrees Heart Rate 2019-12-04 13:16:00 81.00 /min Respiratory Rate 2019-12-04 13:16:00 17.00 /min BP Systolic 2019-08-31 16:03:00 119 mm[Hg] BP Diastolic 2019-08-31 16:03:00 76 mm[Hg] Weight Measured 2019-08-31 16:03:00 176.00 pounds Height Measured 2019-08-31 16:03:00 63.00 inches Body Temperature 2019-08-31 16:03:00 99.50 degrees Heart Rate 2019-08-31 16:03:00 80.00 /min Respiratory Rate 2019-08-31 16:03:00 16.00 /min Procedures Procedure Date / Time Performed Performing Clinician Source CT ABDOMEN PELVIS WO CONTRAST 2023-01-17 19:03:23 Lena Cruz [facility] PREALBUMIN, SERUM 2023-01-17 10:54:00 [facility] PHOSPHORUS 2023-01-17 10:54:00 Zachary Contreras [facility] TRIGLYCERIDES 2023-01-17 10:54:00 Theresa Xavier [facility] GAMMA GLUTAMYLTRANSFERASE 2023-01-17 10:54:00 Theresa Xavier [facility] MAGNESIUM 2023-01-17 10:54:00 Theresa Xavier [facility] IONIZED CALCIUM 2023-01-17 10:54:00 Theresa Nunezdirobert [facility] HEPATIC FUNCTION PANEL (01145) (ALB,T.PRO,BILI T,BU/BC,ALT,AST,ALK PHOS) 2023-01-17 10:54:00 Theresa Xavier [facility] BASIC METABOLIC PANEL (NA, K , CL, CO2, GLUCOSE, BUN, CREATININE, CA) 2023-01-17 10:54:00 Theresa Xavier [facility] CBC WITH DIFF 2023-01-17 10:54:00 Theresa Nassarmubernadette [facility] CBC WITH DIFF 2023-01-16 12:36:00 Fiordaliza Brown [facility] PHOSPHORUS 2023-01-16 11:16:00 Graciela Cadet Eric [facility] MAGNESIUM 2023-01-16 11:16:00 Graciela Cadet Eric [facility] BASIC METABOLIC PANEL (NA, K , CL, CO2, GLUCOSE, BUN, CREATININE, CA) 2023-01-16 11:16:00 Graciela Cadet Eric [facility] COMP. METABOLIC PANEL ([id number]) 2023-01-15 17:14:00 Graciela Cadet [facility] PHOSPHORUS 2023-01-15 16:13:00 Graciela Cadet [facility] MAGNESIUM 2023-01-15 16:13:00 CadetGraciela [facility] CBC WITH DIFF 2023-01-15 16:13:00 Graciela Cadet [facility] PHOSPHORUS 2023-01-13 11:52:00 Luke Raman [facility] MAGNESIUM 2023-01-13 11:52:00 Luke Raman [facility] BASIC METABOLIC PANEL (NA, K , CL, CO2, GLUCOSE, BUN, CREATININE, CA) 2023-01-13 11:52:00 Luke Raman [facility] CBC WITH DIFF 2023-01-13 11:52:00 Luke Raman [facility] PHOSPHORUS 2023-01-12 10:37:00 Luke Raman [facility] MAGNESIUM 2023-01-12 10:37:00 Luke Raman [facility] BASIC METABOLIC PANEL (NA, K , CL, CO2, GLUCOSE, BUN, CREATININE, CA) 2023-01-12 10:37:00 Luke Raman [facility] CBC WITH DIFF 2023-01-12 10:37:00 Luke Raman [facility] BASIC METABOLIC PANEL (NA, K , CL, CO2, GLUCOSE, BUN, CREATININE, CA) 2023-01-11 17:18:00 Luke Raman [facility] PHOSPHORUS 2023-01-11 10:56:00 Luke Raman [facility] MAGNESIUM 2023-01-11 10:56:00 Luke Raman [facility] CBC WITH DIFF 2023-01-11 10:56:00 Luke aRman [facility] XR CHEST 1 VW 2023-01-11 01:00:00 Luke Raman [facility] PREALBUMIN, SERUM 2023-01-10 11:18:00 Luke Raman [facility] PHOSPHORUS 2023-01-10 11:18:00 Luke Raman [facility] TRIGLYCERIDES 2023-01-10 11:18:00 Zachary Contreras [facility] MAGNESIUM 2023-01-10 11:18:00 Luke Raman [facility] IONIZED CALCIUM 2023-01-10 11:18:00 Zachary Contreras [facility] HEPATIC FUNCTION PANEL ([id number]) (ALB,T.PRO,BILI T,BU/BC,ALT,AST,ALK PHOS) 2023-01-10 11:18:00 Zachary Contrerasdro [facility] BASIC METABOLIC PANEL (NA, K , CL, CO2, GLUCOSE, BUN, CREATININE, CA) 2023-01-10 11:18:00 Luke Raman [facility] CBC WITH DIFF 2023-01-10 11:18:00 Luke Raman [facility] PHOSPHORUS 2023-01-09 10:33:00 Luke Raman [facility] MAGNESIUM 2023-01-09 10:33:00 Luke Raman [facility] BASIC METABOLIC PANEL (NA, K , CL, CO2, GLUCOSE, BUN, CREATININE, CA) 2023-01-09 10:33:00 Luke Raman [facility] CBC WITH DIFF 2023-01-09 10:33:00 Luke Raman [facility] PHOSPHORUS 2023-01-09 10:33:00 Luke Raman [facility] MAGNESIUM 2023-01-09 10:33:00 Luke Raman [facility] BASIC METABOLIC PANEL (NA, K , CL, CO2, GLUCOSE, BUN, CREATININE, CA) 2023-01-09 10:33:00 Luke Raman [facility] CBC WITH DIFF 2023-01-09 10:33:00 Luke Raman [facility] CBC WITH DIFF 2023-01-08 11:05:00 Graciela Cadet Eric [facility] BASIC METABOLIC PANEL (NA, K , CL, CO2, GLUCOSE, BUN, CREATININE, CA) 2023-01-08 11:05:00 Graciela Cadet Eric [facility] BASIC METABOLIC PANEL (NA, K , CL, CO2, GLUCOSE, BUN, CREATININE, CA) 2023-01-08 11:05:00 Graciela Cadet Eric [facility] CBC WITH DIFF 2023-01-08 11:05:00 Graciela Cadet [facility] IR DRAINAGE BY CATHETER PERITONEAL OR RETROPERITONEAL 2023-01-07 20:49:15 Graciela Cadet [facility] IR DRAINAGE BY CATHETER PERITONEAL OR RETROPERITONEAL 2023-01-07 20:49:15 Graciela Cadet [facility] BODY FLUID CULTURE(AEROBIC/ANAEROBIC) 2023-01-07 20:37:00 Osbaldo Bhatia [facility] BODY FLUID CULTURE(AEROBIC/ANAEROBIC) 2023-01-07 20:37:00 Osbaldo Bhatia [facility] BASIC METABOLIC PANEL (NA, K , CL, CO2, GLUCOSE, BUN, CREATININE, CA) 2023-01-07 10:00:[address] [facility] CBC WITH DIFF 2023-01-07 10:00:[address] [facility] MAGNESIUM 2023-01-07 10:00:[address] [facility] PHOSPHORUS 2023-01-07 10:00:[address] [facility] PHOSPHORUS 2023-01-07 10:00:[address] [facility] MAGNESIUM 2023-01-07 10:00:[address] [facility] BASIC METABOLIC PANEL (NA, K , CL, CO2, GLUCOSE, BUN, CREATININE, CA) 2023-01-07 10:00:[address] [facility] CBC WITH DIFF 2023-01-07 10:00:[address] [facility] CBC WITH DIFF 2023-01-06 14:15:00 Yuan [facility] CBC WITH DIFF 2023-01-06 14:15:00 Carmen Bolden [facility] BASIC METABOLIC PANEL (NA, K , CL, CO2, GLUCOSE, BUN, CREATININE, CA) 2023-01-06 [facility]:14[facility] (NA, K , CL, CO2, GLUCOSE, BUN, CREATININE, CA) 2023-01-06 14:14:00 Yuan [facility] CT ABDOMEN PELVIS W CONTRAST 2023-01-06 09:35:52 Yuan [facility] CT ABDOMEN PELVIS W CONTRAST 2023-01-06 09:35:52 Yuan Carmen [facility] URINALYSIS 2023-01-06 06:16:00 Kenyatta [facility] URINALYSIS 2023-01-06 06:16:00 Norman You [facility] BASIC METABOLIC PANEL (NA, K , CL, CO2, GLUCOSE, BUN, CREATININE, CA) 2023-01-06 05:26:00 Norman You [facility] HEPATIC FUNCTION PANEL (96645) (ALB,T.PRO,BILI T,BU/BC,ALT,AST,ALK PHOS) 2023-01-06 05:26:00 Norman You [facility] LIPASE 2023-01-06 05:26:00 Kenyatta [facility] LACTIC ACID WHOLE BLOOD 2023-01-06 05:26:00 Norman You [facility] CBC WITH DIFF 2023-01-06 05:26:00 Norman You [facility] MAGNESIUM 2023-01-06 05:26:00 Norman You [facility] LIPASE 2023-01-06 05:26:00 oNrman You [facility] MAGNESIUM 2023-01-06 05:26:00 Norman You [facility] HEPATIC FUNCTION PANEL ([id number]) (ALB,T.PRO,BILI T,BU/BC,ALT,AST,ALK PHOS) 2023-01-06 05:26:00 Norman You [facility] BASIC METABOLIC PANEL (NA, K , CL, CO2, GLUCOSE, BUN, CREATININE, CA) 2023-01-06 05:26:00 Norman You [facility] CBC WITH DIFF 2023-01-06 05:26:00 KenyattaNorman catalan Barrington [facility] LACTIC ACID WHOLE BLOOD 2023-01-06 05:26:00 Kenyatta Norman [place]rington [facility] CONSENT/REFUSAL FOR DIAGNOSI S AND TREATMENT 2023-01-06 04:28:14 Doctor Unassigned, [place] [facility] CONSENT/REFUSAL FOR DIAGNOSI S AND TREATMENT 2023-01-06 04:28:14 Doctor Unassigned, [facility] CBC WITH DIFF 2023-01-04 12:01:00 Jame [facility] CBC WITH DIFF 2023-01-04 12:01:00 Jame [facility] MAGNESIUM 2023-01-03 11:49:00 Eliu [facility] BASIC METABOLIC PANEL (NA, K , CL, CO2, GLUCOSE, BUN, CREATININE, CA) 2023-01-03 11:49:00 Eliu [facility] CBC WITH DIFF 2023-01-03 11:49:[address] [facility] CBC WITH DIFF 2023-01-03 11:49:00 Eliu [facility] BASIC METABOLIC PANEL (NA, K , CL, CO2, GLUCOSE, BUN, CREATININE, CA) 2023-01-03 11:49:00 Eliu Baird [facility] MAGNESIUM 2023-01-03 11:49:[address] [facility] CT ABDOMEN PELVIS W CONTRAST 2023-01-02 23:44:44 Mike Peña [facility] CT ABDOMEN PELVIS W CONTRAST 2023-01-02 23:44:44 Mike Peña [facility] BASIC METABOLIC PANEL (NA, K , CL, CO2, GLUCOSE, BUN, CREATININE, CA) 2023-01-02 15:10:00 Jame [facility] CBC WITH DIFF 2023-01-02 15:10:00 Jame [facility] CBC WITH DIFF 2023-01-02 15:10:00 Fan Kilgore [facility] BASIC METABOLIC PANEL (NA, K , CL, CO2, GLUCOSE, BUN, CREATININE, CA) 2023-01-02 15:10:00 Fan Kilgore [facility] PHOSPHORUS 2023-01-01 12:23:00 Holly Metz [facility] MAGNESIUM 2023-01-01 12:23:00 Holly Metz [facility] BASIC METABOLIC PANEL (NA, K , CL, CO2, GLUCOSE, BUN, CREATININE, CA) 2023-01-01 12:23:00 Holly Metz [facility] CBC WITH DIFF 2023-01-01 12:23:00 Holly Metz [facility] CBC WITH DIFF 2023-01-01 12:23:00 Holly Metz [facility] BASIC METABOLIC PANEL (NA, K , CL, CO2, GLUCOSE, BUN, CREATININE, CA) 2023-01-01 12:23:00 Holly Metz [facility] MAGNESIUM 2023-01-01 12:23:00 Holly Metz [facility] PHOSPHORUS 2023-01-01 12:23:00 Holly Metz [facility] BASIC METABOLIC PANEL (NA, K , CL, CO2, GLUCOSE, BUN, CREATININE, CA) 2022-12-31 12:27:00 Holly Metz [facility] VANCOMYCIN TROUGH 2022-12-31 12:27:00 Dana Collier [facility] CBC WITH DIFF 2022-12-31 12:27:00 Holly Metz [facility] EXTRA TUBE LAV 2022-12-31 12:27:00 Mike Masters [facility] EXTRA TUBE LT. GREEN 2022-12-31 12:27:00 Mike Masters [facility] VANCOMYCIN TROUGH 2022-12-31 12:27:00 Dana Collier [facility] BASIC METABOLIC PANEL (NA, K , CL, CO2, GLUCOSE, BUN, CREATININE, CA) 2022-12-31 12:27:00 Holly Metz [facility] CBC WITH DIFF 2022-12-31 12:27:00 Holly Metz [facility] EXTRA TUBE LT. GREEN 2022-12-31 12:27:00 Mike Masters [facility] EXTRA TUBE LAV 2022-12-31 12:27:00 Mike Masters [facility] PHOSPHORUS 2022-12-30 11:03:00 Chuy [facility] MAGNESIUM 2022-12-30 11:03:00 Chuy [facility] BASIC METABOLIC PANEL (NA, K , CL, CO2, GLUCOSE, BUN, CREATININE, CA) 2022-12-30 11:03:00 Chuy, [facility] CBC WITH DIFF 2022-12-30 11:03:00 Den, [facility] CBC WITH DIFF 2022-12-30 11:03:00 Chuy [facility] BASIC METABOLIC PANEL (NA, K , CL, CO2, GLUCOSE, BUN, CREATININE, CA) 2022-12-30 11:03:00 Chuy [facility] MAGNESIUM 2022-12-30 11:03:00 Chuy [facility] PHOSPHORUS 2022-12-30 11:03:00 Chuy [facility] PHOSPHORUS 2022-12-29 12:00:00 Chuy [facility] MAGNESIUM 2022-12-29 12:00:00 Chuy [facility] BASIC METABOLIC PANEL (NA, K , CL, CO2, GLUCOSE, BUN, CREATININE, CA) 2022-12-29 12:00:00 Chuy, [facility] CBC WITH DIFF 2022-12-29 12:00:00 Den, [facility] CBC WITH DIFF 2022-12-29 12:00:00 Chuy, [facility] BASIC METABOLIC PANEL (NA, K , CL, CO2, GLUCOSE, BUN, CREATININE, CA) 2022-12-29 12:00:00 Chuy [facility] MAGNESIUM 2022-12-29 12:00:00 Den [facility] PHOSPHORUS 2022-12-29 12:00:00 Chuy [facility] VANCOMYCIN TROUGH 2022-12-28 11:45:00 Ramo Wilson Braun [facility] VANCOMYCIN TROUGH 2022-12-28 11:45:00 Ramo Wilson [facility] PHOSPHORUS 2022-12-28 10:18:00 [facility]-12-28 10:18:00 Graciela Cadet [facility] MAGNESIUM 2022-12-28 10:18:00 [facility] 2022-12-28 10:18:00 Graciela Cadet [facility] BASIC METABOLIC PANEL (NA, K , CL, CO2, GLUCOSE, BUN, CREATININE, CA) 2022-12-28 10:18:00 [facility] DIFF 2022-12-28 10:18:00 Chuy [facility] IONIZED CALCIUM 2022-12-28 10:18:00 Graciela Cadet [facility] TRIGLYCERIDES 2022-12-28 10:18:00 Graciela Cadet [facility] CBC WITH DIFF 2022-12-28 10:18:00 [facility]OLIC PANEL (NA, K , CL, CO2, GLUCOSE, BUN, CREATININE, CA) 2022-12-28 10:18:00 [facility] 2022-12-28 10:18:00 [facility] 2022-12-28 10:18:00 Chuy [facility] PREPARE PACKED RBC 2022-12-27 16:03:01 Santino [facility] PREPARE PACKED RBC 2022-12-27 16:03:01 Santino [facility] IR DRAINAGE BY CATHETER PERITONEAL OR RETROPERITONEAL 2022-12-27 15:57:49 [facility] 2022-12-27 13:18:00 [facility] 2022-12-27 13:18:00 [facility] 2022-12-27 11:15:00 Den, [facility] MAGNESIUM 2022-12-27 11:15:00 Chuy [facility] HEPATIC FUNCTION PANEL (61253) (ALB,T.PRO,BILI T,BU/BC,ALT,AST,ALK PHOS) 2022-12-27 11:15:00 Pedrito [facility] BASIC METABOLIC PANEL (NA, K , CL, CO2, GLUCOSE, BUN, CREATININE, CA) 2022-12-27 11:15:00 Chuy [facility] VANCOMYCIN TROUGH 2022-12-27 11:15:00 Pedrito [facility] CBC WITH DIFF 2022-12-27 11:15:00 Chuy [facility] CBC WITH DIFF 2022-12-27 11:15:00 Chuy [facility] BASIC METABOLIC PANEL (NA, K , CL, CO2, GLUCOSE, BUN, CREATININE, CA) 2022-12-27 11:15:00 Chuy [facility] MAGNESIUM 2022-12-27 11:15:00 Chuy [facility] PHOSPHORUS 2022-12-27 11:15:00 Chuy [facility] VANCOMYCIN TROUGH 2022-12-27 11:15:00 Pedrito [facility] HEPATIC FUNCTION PANEL (68329) (ALB,T.PRO,BILI T,BU/BC,ALT,AST,ALK PHOS) 2022-12-27 11:15:00 Pedrito [facility] POCT GLUCOSE (AUTOMATED) 2022-12-26 23:19:00 Pedrito [facility] POCT GLUCOSE (AUTOMATED) 2022-12-26 23:19:00 Pedrito [facility] PROTHROMBIN TIME / INR 2022-12-26 21:07:00 Deandre [facility] PROTHROMBIN TIME / INR 2022-12-26 21:07:00 Deandre [facility] CBC WITH DIFF 2022-12-26 20:59:00 Pedrito [facility] HB ABO GROUPING 2022-12-26 20:59:00 [facility]ESS CULT[facility](AEROBIC/ANAEROBIC) 2022-12-26 20:59:00 Deandre [facility] WOUND/ASPIRATE OR ABSCESS CULTURE 2022-12-26 20:59:00 Deandre [facility] HB ABO GROUPING 2022-12-26 20:59:00 [facility] 2022-12-26 20:59:00 Pedrito [facility] WOUND/ASPIRATE OR ABSCESS CULTURE 2022-12-26 20:59:00 Deandre [facility] ASPIRATE OR ABSCESS CULTURE(AEROBIC/ANAEROBIC) 2022-12-26 20:59:00 Deander [facility] US ABDOMEN LIMITED 2022-12-26 20:40:00 Deandre [facility] ABDOMEN LIMITED 2022-12-26 20:40:00 Deandre [facility] CBC WITH DIFF 2022-12-26 16:14:00 [facility] 2022-12-26 16:14:00 [facility] 2022-12-26 16:12:00 Pedrito [facility] POCT GLUCOSE (AUTOMATED) 2022-12-26 16:12:[address] [facility] [address] ABDOMEN PELVIS W CONTRAST 2022-12-26 15:46:[address] [facility] [address] ABDOMEN PELVIS W CONTRAST 2022-12-26 15:46:15 Pedrito [facility] PHOSPHORUS 2022-12-26 10:40:00 Georgiana Vera [facility] MAGNESIUM 2022-12-26 10:40:00 [facility] HEPATIC FUNCTION PANEL (72131) (ALB,T.PRO,BILI T,BU/BC,ALT,AST,ALK PHOS) 2022-12-26 10:40:00 Pedrito [facility] BASIC METABOLIC PANEL (NA, K , CL, CO2, GLUCOSE, BUN, CREATININE, CA) 2022-12-26 10:40:00 [facility] HEPATIC FUNCTION PANEL ([id number]) (ALB,T.PRO,BILI T,BU/BC,ALT,AST,ALK PHOS) 2022-12-26 10:40:00 [facility]OLIC PANEL (NA, K , CL, CO2, GLUCOSE, BUN, CREATININE, CA) 2022-12-26 10:40:00 [facility] 2022-12-26 10:40:00 [facility] 2022-12-26 10:40:00 [facility] DISCLOSURE AND CONSENT, MEDICAL AND SURGICAL PROCEDURES 2022-12-26 06:01:00 Doctor Unassigned, [facility] DISCLOSURE AND CONSENT, MEDICAL AND SURGICAL PROCEDURES 2022-12-26 06:01:00 Doctor Unassigned, [facility] POCT GLUCOSE (AUTOMATED) 2022-12-26 01:48:00 Pedrito [facility] POCT GLUCOSE (AUTOMATED) 2022-12-26 01:48:00 Pedrito [facility] VANCOMYCIN TROUGH 2022-12-26 01:17:00 Pedrito [facility] VANCOMYCIN TROUGH 2022-12-26 01:17:00 Pedrito [facility] BODY FLUID DIRECT COUNT 2022-12-25 21:44:00 Pedrito [facility] ASPIRATE OR ABSCESS CULTURE(AEROBIC/ANAEROBIC) 2022-12-25 21:44:00 Pedrito [facility] BODY FLUID MANUAL DIFF 2022-12-25 21:44:00 Pedrito [facility] ASPIRATE OR ABSCESS CULTURE(AEROBIC/ANAEROBIC) 2022-12-25 21:44:[address] [facility] [address] ABDOMEN PELVIS W CONTRAST 2022-12-25 18:14:[address] [facility] [address] ABDOMEN PELVIS W CONTRAST 2022-12-25 18:14:58 Chuy [facility] PHOSPHORUS 2022-12-25 15:46:00 Den, [facility] MAGNESIUM 2022-12-25 15:46:00 Chuy, [facility] BASIC METABOLIC PANEL (NA, K , CL, CO2, GLUCOSE, BUN, CREATININE, CA) 2022-12-25 15:46:00 Chuy, [facility] CBC WITH DIFF 2022-12-25 15:46:00 Den [facility] PHOSPHORUS 2022-12-25 15:46:00 Den, [facility] MAGNESIUM 2022-12-25 15:46:00 Den, [facility] BASIC METABOLIC PANEL (NA, K , CL, CO2, GLUCOSE, BUN, CREATININE, CA) 2022-12-25 15:46:00 Chuy, [facility] CBC WITH DIFF 2022-12-25 15:46:00 Chuy [facility] POCT GLUCOSE (AUTOMATED) 2022-12-25 14:00:00 Pedrito [facility] POCT GLUCOSE (AUTOMATED) 2022-12-25 14:00:00 Pedrito [facility] POCT GLUCOSE (AUTOMATED) 2022-12-25 06:08:00 Pedrito [facility] POCT GLUCOSE (AUTOMATED) 2022-12-25 06:08:00 Pedrito [facility] BLOOD CULTURE SCREEN 2022-12-24 20:44:00 Pedrito [facility] BLOOD CULTURE SCREEN 2022-12-24 20:44:00 Pedrito [facility] BLOOD CULTURE SCREEN 2022-12-24 20:43:00 Pedrito [facility] BLOOD CULTURE SCREEN 2022-12-24 20:43:00 Pedrito [facility] POCT GLUCOSE (AUTOMATED) 2022-12-24 18:15:00 Pedrito [facility] POCT GLUCOSE (AUTOMATED) 2022-12-24 18:15:00 Pedrito [facility] PHOSPHORUS 2022-12-24 11:52:00 [facility]22-12-24 11:52:00 Pedrito [facility] IONIZED CALCIUM 2022-12-24 11:52:00 Pedrito [facility] COMP. METABOLIC PANEL (63668) 2022-12-24 11:52:00 Pedrito [facility] CBC WITH DIFF 2022-12-24 11:52:00 Pedrito [facility] CBC WITH DIFF 2022-12-24 11:52:00 Pedrito [facility] COMP. METABOLIC PANEL ([id number]) 2022-12-24 11:52:00 Pedrito [facility] MAGNESIUM 2022-12-24 11:52:00 Pedrito [facility] PHOSPHORUS 2022-12-24 11:52:00 Pedrito [facility] IONIZED CALCIUM 2022-12-24 11:52:00 Pedrito [facility] EMAIL COMMUNICATION BETWEEN PATIENT & PROVIDER 2022-12-24 06:01:00 Doctor Unassigned, [facility] EMAIL COMMUNICATION BETWEEN PATIENT & PROVIDER 2022-12-24 06:01:00 Doctor Unassigned, [facility] POCT GLUCOSE (AUTOMATED) 2022-12-23 22:32:00 Pedrito [facility] POCT GLUCOSE (AUTOMATED) 2022-12-23 22:32:00 Pedrito [facility] PHOSPHORUS 2022-12-23 11:29:00 Pedrito [facility] MAGNESIUM 2022-12-23 11:29:00 Pedrito [facility] BASIC METABOLIC PANEL (NA, K , CL, CO2, GLUCOSE, BUN, CREATININE, CA) 2022-12-23 11:29:00 Pedrito [facility] CBC WITH DIFF 2022-12-23 11:29:00 Pedrito [facility] BASIC METABOLIC PANEL (NA, K , CL, CO2, GLUCOSE, BUN, CREATININE, CA) 2022-12-23 11:29:00 [facility]22-12-23 11:29:00 [facility] 2022-12-23 11:29:00 Pedrito [facility] CBC WITH DIFF 2022-12-23 11:29:00 Pedrito [facility] POCT GLUCOSE (AUTOMATED) 2022-12-23 07:08:00 Pedrito [facility] POCT GLUCOSE (AUTOMATED) 2022-12-23 07:08:[address] [facility] [address] ABDOMEN PELVIS W CONTRAST 2022-12-22 19:19:[address] [facility] [address] [facility]BD[facility]EN PELVIS W CONTRAST 2022-12-22 19:19:57 [facility] XR CHEST 1 VW 2022-12-22 17:45:41 Boogie [facility] XR KUB 2022-12-22 17:45:41 [facility] XR KUB 2022-12-22 17:45:41 [facility] XR CHEST 1 VW 2022-12-22 17:45:41 Boogie [facility] POCT GLUCOSE (AUTOMATED) 2022-12-22 13:52:00 Pedrito [facility] POCT GLUCOSE (AUTOMATED) 2022-12-22 13:52:00 [facility]22-12-22 10:26:00 [facility] MAGNESIUM 2022-12-22 10:26:00 [facility] BASIC METABOLIC PANEL (NA, K , CL, CO2, GLUCOSE, BUN, CREATININE, CA) 2022-12-22 10:26:00 [facility] CBC WITH DIFF 2022-12-22 10:26:00 [facility] BASIC METABOLIC PANEL (NA, K , CL, CO2, GLUCOSE, BUN, CREATININE, CA) 2022-12-22 10:26:00 [facility] CBC WITH DIFF 2022-12-22 10:26:00 Demetrio Alvarado [facility] MAGNESIUM 2022-12-22 10:26:00 Demetrio Alvarado [facility] PHOSPHORUS 2022-12-22 10:26:00 Eli Hyman [facility] POCT GLUCOSE (AUTOMATED) 2022-12-22 02:31:00 [facility] 2022-12-22 02:31:00 Toya Major [facility] XR CHEST 1 VW 2022-12-22 01:57:18 [facility] CHEST 1 VW 2022-12-22 01:57:18 [facility] BLOOD CULTURE SCREEN 2022-12-21 19:03:00 [facility] BLOOD CULTURE SCREEN 2022-12-21 19:03:00 [facility] BLOOD CULTURE SCREEN 2022-12-21 18:59:00 [facility] IRON 2022-12-21 18:59:00 [facility] TOTAL IRON BINDING CAPACITY 2022-12-21 18:59:00 [facility] RETICULOCYTES AUTOMATED 2022-12-21 18:59:00 [facility] BLOOD CULTURE SCREEN 2022-12-21 18:59:00 [facility] TOTAL IRON BINDING CAPACITY 2022-12-21 18:59:00 [facility] RETICULOCYTES AUTOMATED 2022-12-21 18:59:00 [facility] IRON 2022-12-21 18:59:00 [facility] PREPARE PACKED RBC 2022-12-21 18:23:21 Eli Hyman [facility] PREPARE PACKED RBC 2022-12-21 18:23:21 Eli Hyman Alicia [facility] POCT GLUCOSE (AUTOMATED) 2022-12-21 13:41:00 [facility] 2022-12-21 13:41:00 Toya Major [facility] HB ABO GROUPING 2022-12-21 13:40:00 Fortich, [facility] HB ABO GROUPING 2022-12-21 13:40:00 Boogie [facility] XR CHEST 1 VW 2022-12-21 11:33:57 Olumariia [facility] XR CHEST 1 VW 2022-12-21 11:33:57 Boogie [facility] PHOSPHORUS 2022-12-21 10:06:00 Boogie [facility] MAGNESIUM 2022-12-21 10:06:00 Boogie [facility] BASIC METABOLIC PANEL (NA, K , CL, CO2, GLUCOSE, BUN, CREATININE, CA) 2022-12-21 10:06:00 Boogie [facility] CBC WITHOUT DIFF 2022-12-21 10:06:00 Boogie [facility] BASIC METABOLIC PANEL (NA, K , CL, CO2, GLUCOSE, BUN, CREATININE, CA) 2022-12-21 10:06:00 Boogie [facility] CBC WITHOUT DIFF 2022-12-21 10:06:00 Boogie [facility] MAGNESIUM 2022-12-21 10:06:00 Boogie [facility] PHOSPHORUS 2022-12-21 10:06:00 Boogie [facility] POCT GLUCOSE (AUTOMATED) 2022-12-21 02:07:00 Pedrito [facility] POCT GLUCOSE (AUTOMATED) 2022-12-21 02:07:00 Pedrito [facility] MAGNESIUM 2022-12-20 20:24:00 Pedrito [facility] BASIC METABOLIC PANEL (NA, K , CL, CO2, GLUCOSE, BUN, CREATININE, CA) 2022-12-20 20:24:00 Pedrito [facility] BASIC METABOLIC PANEL (NA, K , CL, CO2, GLUCOSE, BUN, CREATININE, CA) 2022-12-20 20:24:00 Pedrito [facility] MAGNESIUM 2022-12-20 20:24:00 Pedrito [facility] XR ABDOMEN 1 2022-12-20 18:03:45 Thuyselena [facility] XR ABDOMEN 1 VW 2022-12-20 18:03:45 Pedrito [facility] XR CHEST 1 VW 2022-12-20 18:03:26 Pedrito [facility] XR CHEST 1 2022-12-20 18:03:26 Pedrito [facility] POCT GLUCOSE (AUTOMATED) 2022-12-20 14:05:00 Pedrito [facility] POCT GLUCOSE (AUTOMATED) 2022-12-20 14:05:00 Pedrito [facility] POCT GLUCOSE (AUTOMATED) 2022-12-20 14:05:00 Pedrito [facility] XR CHEST 1 VW 2022-12-20 11:52:32 [facility] XR CHEST 1 VW 2022-12-20 11:52:32 [facility] XR CHEST 1 VW 2022-12-20 11:52:32 Demetrio Alvarado [facility] PHOSPHORUS 2022-12-20 10:06:00 Eli Hyman [facility] MAGNESIUM 2022-12-20 10:06:00 [facility] BASIC METABOLIC PANEL (NA, K , CL, CO2, GLUCOSE, BUN, CREATININE, CA) 2022-12-20 10:06:00 Demetrio Alvarado [facility] CBC WITH DIFF 2022-12-20 10:06:00 Demetrio Alvarado [facility] PHOSPHORUS 2022-12-20 10:06:00 Eli Hyman [facility] MAGNESIUM 2022-12-20 10:06:00 Demetrio Alvarado [facility] BASIC METABOLIC PANEL (NA, K , CL, CO2, GLUCOSE, BUN, CREATININE, CA) 2022-12-20 10:06:00 Demetrio Alvarado [facility] CBC WITH DIFF 2022-12-20 10:06:00 Demetrio Alvarado [facility] BASIC METABOLIC PANEL (NA, K , CL, CO2, GLUCOSE, BUN, CREATININE, CA) 2022-12-20 10:06:00 [facility] CBC WITH DIFF 2022-12-20 10:06:00 Demetrio Alvarado [facility] MAGNESIUM 2022-12-20 10:06:00 [facility] PHOSPHORUS 2022-12-20 10:06:00 Boogie [facility] ACUTE CARE ARTERIAL BLOOD GAS 2022-12-20 10:00:00 [facility] ACUTE CARE ARTERIAL BLOOD GAS 2022-12-20 10:00:00 [facility] ACUTE CARE ARTERIAL BLOOD GAS 2022-12-20 10:00:00 [facility] XR CHEST 1 VW 2022-12-19 12:29:56 Boogie [facility] XR CHEST 1 VW 2022-12-19 12:29:56 Boogie [facility] XR CHEST 1 2022-12-19 12:29:56 Boogie [facility] PHOSPHORUS 2022-12-19 10:26:00 Boogie [facility] MAGNESIUM 2022-12-19 10:26:00 Boogie [facility] BASIC METABOLIC PANEL (NA, K , CL, CO2, GLUCOSE, BUN, CREATININE, CA) 2022-12-19 10:26:00 Boogie [facility] CBC WITHOUT DIFF 2022-12-19 10:26:00 Boogie [facility] AC PANEL 20 + LACTIC ACID 2022-12-19 10:26:00 Boogie [facility] PHOSPHORUS 2022-12-19 10:26:00 Boogie [facility] MAGNESIUM 2022-12-19 10:26:00 Boogie [facility] BASIC METABOLIC PANEL (NA, K , CL, CO2, GLUCOSE, BUN, CREATININE, CA) 2022-12-19 10:26:00 Boogie [facility] CBC WITHOUT DIFF 2022-12-19 10:26:00 Boogie [facility] AC PANEL 20 + LACTIC ACID 2022-12-19 10:26:00 Boogie [facility] BASIC METABOLIC PANEL (NA, K , CL, CO2, GLUCOSE, BUN, CREATININE, CA) 2022-12-19 10:26:00 Boogie [facility] CBC WITHOUT DIFF 2022-12-19 10:26:00 Boogie [facility] MAGNESIUM 2022-12-19 10:26:00 Boogie [facility] PHOSPHORUS 2022-12-19 10:26:00 Boogie [facility] AC PANEL 20 + LACTIC ACID 2022-12-19 10:26:00 Boogie [facility] LACTIC ACID WHOLE BLOOD 2022-12-19 05:28:00 Carlos Alberto [facility] LACTIC ACID WHOLE BLOOD 2022-12-19 05:28:00 Carlos Alberto [facility] LACTIC ACID WHOLE BLOOD 2022-12-19 05:28:00 Carlos Alberto [facility] PHOSPHORUS 2022-12-19 03:01:00 Boogie [facility] MAGNESIUM 2022-12-19 03:01:00 Ped[facility] COMP. METABOLIC PANEL ([id number]) 2022-12-19 03:01:00 Martha Nice [facility] CBC WITH DIFF 2022-12-19 03:01:00 Martha Nice [facility] AC PANEL 20 + LACTIC ACID 2022-12-19 03:01:00 [facility]22-12-19 03:01:00 Boogie [facility] MAGNESIUM 2022-12-19 03:01:00 Ped[facility] COMP. METABOLIC PANEL ([id number]) 2022-12-19 03:01:00 Martha Nice [facility] CBC WITH DIFF 2022-12-19 03:01:00 Martha Nice [facility] AC PANEL 20 + LACTIC ACID 2022-12-19 03:01:00 Toya Major [facility] PHOSPHORUS 2022-12-19 03:01:00 Eli Hyman Alicia [facility] COMP. METABOLIC PANEL ([id number]) 2022-12-19 03:01:00 Martha Nice [facility] CBC WITH DIFF 2022-12-19 03:01:00 Martha Nice [facility] AC PANEL 20 + LACTIC ACID 2022-12-19 03:01:00 Toya Major [facility] MAGNESIUM 2022-12-19 03:01[facility]00 [facility] + LACTIC ACID 2022-12-19 00:27:00 [facility] AC PANEL 20 + LACTIC ACID 2022-12-19 00:27:00 [facility] AC PANEL 20 + LACTIC ACID 2022-12-19 00:27:00 [facility] 2022-12-19 00:23:00 Boogie [facility] XR CHEST 1 VW 2022-12-19 00:23:00 Boogie [facility] XR CHEST 1 VW 2022-12-19 00:23:00 [facility] SURGICAL PATHOLOGY EXAM 2022-12-18 22:26:00 [facility] SURGICAL PATHOLOGY EXAM 2022-12-18 22:26:00 [facility] BODY FLUID CULTURE(AEROBIC/ANAEROBIC) 2022-12-18 22:22:00 [facility] BODY FLUID CULTURE(AEROBIC/ANAEROBIC) 2022-12-18 22:22:00 [facility] BODY FLUID CULTURE(AEROBIC/ANAEROBIC) 2022-12-18 22:22:00 [facility] ARTERIAL LINE 2022-12-18 21:13:00 Jayson Harrington [facility] URINE CULTURE 2022-12-18 20:55:00 [facility] 20:55[facility]18 [facility]:55[facility]-12-18 20:53:00 Jayson Harrington [facility] DIAGNOSTIC LAPAROSCOPY 2022-12-18 20:28:00 [facility] acute hospital EXPLORATORY LAPAROTOMY 2022-12-18 20:28:00 S[facility], [facility] acute hospital CENTRAL VENOUS ACCESS CATHETER PLACEMENT 2022-12-18 20:28:00 Sow, [facility] acute hospital RESECTION SMALL INTESTINE 2022-12-18 20:28:00 Sow, [facility] acute hospital DIAGNOSTIC LAPAROSCOPY 2022-12-18 20:28:00 Sow, [facility] acute hospital EXPLORATORY LAPAROTOMY 2022-12-18 20:28:00 Sow, [facility] acute hospital CENTRAL VENOUS ACCESS CATHETER PLACEMENT 2022-12-18 20:28:00 Sow, [facility] acute hospital RESECTION SMALL INTESTINE 2022-12-18 20:28:00 Sow, [facility] acute hospital DIAGNOSTIC LAPAROSCOPY 2022-12-18 20:28:00 Sow, [facility] acute hospital EXPLORATORY LAPAROTOMY 2022-12-18 20:28:00 Sow, [facility] acute hospital CENTRAL VENOUS ACCESS CATHETER PLACEMENT 2022-12-18 20:28:00 Sow, [facility] acute hospital RESECTION SMALL INTESTINE 2022-12-18 20:28:00 Magi, [facility] acute hospital BLOOD CULTURE SCREEN 2022-12-18 19:46:00 [facility]22-12-18 19:46:00 [facility]12-18 19:46[facility]00 [facility] 2022-12-18 19:46:00 Pedrito [facility] BLOOD CULTURE SCREEN 2022-12-18 19:46:00 [facility] 2022-12-18 19:46:00 [place], [facility] BLOOD CULTURE SCREEN 2022-12-18 19:30:00 Pedrito, [facility] BLOOD CULTURE WORKUP 2022-12-18 19:30:00 Pedrito [facility] GRAM NEGATIVE BLOOD PATHOGEN S DNA PROBE-ANAEROBIC 2022-12-18 19:30:00 Pedrito [facility] BLOOD CULTURE SCREEN 2022-12-18 19:30:00 [place]ena [facility] BLOOD CULTURE WORKUP 2022-12-18 19:30:00 [place], [facility] GRAM NEGATIVE BLOOD PATHOGEN S DNA PROBE-ANAEROBIC 2022-12-18 19:30:00 [facility] BLOOD CULTURE SCREEN 2022-12-18 19:30:00 [facility] BLOOD CULTURE WORKUP 2022-12-18 19:30:00 [facility] GRAM NEGATIVE BLOOD PATHOGEN S DNA PROBE-ANAEROBIC 2022-12-18 19:30:00 [facility] BASIC METABOLIC PANEL (NA, K , CL, CO2, GLUCOSE, BUN, CREATININE, CA) 2022-12-18 19:01:00 Martha Nice [facility] BASIC METABOLIC PANEL (NA, K , CL, CO2, GLUCOSE, BUN, CREATININE, CA) 2022-12-18 19:01:00 Martha Nice [facility] TSH RECEPTOR ANTIBODY (TRAB) 2022-12-18 19:01:00 Martha Nice [facility] TSH RECEPTOR ANTIBODY (TRAB) 2022-12-18 19:01:00 Martha Nice [facility] BASIC METABOLIC PANEL (NA, K , CL, CO2, GLUCOSE, BUN, CREATININE, CA) 2022-12-18 19:01:00 Martha Nice [facility] LACTIC ACID WHOLE BLOOD 2022-12-18 18:57:00 [place] Sow [facility] LACTIC ACID WHOLE BLOOD 2022-12-18 18:57:00 [facility] LACTIC ACID WHOLE BLOOD 2022-12-18 18:57:00 [facility] URINALYSIS 2022-12-18 18:26:00 [facility] CREATININE, URINE RANDOM 2022-12-18 18:26:00 [facility] SODIUM, URINE RANDOM 2022-12-18 18:26:00 [facility] URINALYSIS 2022-12-18 18:26:00 [facility] CREATININE, URINE RANDOM 2022-12-18 18:26:00 [facility] SODIUM, URINE RANDOM 2022-12-18 18:26:00 [facility] SODIUM, URINE RANDOM 2022-12-18 18:26:00 [facility] CREATININE, URINE RANDOM 2022-12-18 18:26:00 [facility] URINALYSIS 2022-12-18 18:26:[address] [facility] [address] ABDOMEN PELVIS W CONTRAST 2022-12-18 18:14:10 [facility] ABDOMEN PELVIS W CONTRAST 2022-12-18 18:14:10 [facility] ABDOMEN PELVIS W CONTRAST 2022-12-18 18:14:10 [facility] ABDOMEN PELVIS WO CONTRAST 2022-12-18 16:35:[address] [facility] [address] ABDOMEN PELVIS WO CONTRAST 2022-12-18 16:35:[address] [facility] [address] ABDOMEN PELVIS WO CONTRAST 2022-12-18 16:35:16 [facility] XR CHEST 1 VW 2022-12-18 16:29:38 [facility] XR CHEST 1 2022-12-18 16:29:38 [facility] XR CHEST 1 2022-12-18 16:29:38 [facility] HB ECG ROUTINE & RHYTHM STRIP 2022-12-18 14:12:15 Sid [facility] HB ECG ROUTINE & RHYTHM STRIP 2022-12-18 14:12:15 Sid [facility] HB ECG ROUTINE & RHYTHM STRIP 2022-12-18 14:12:15 Sid [facility] BASIC METABOLIC PANEL (NA, K , CL, CO2, GLUCOSE, BUN, CREATININE, CA) 2022-12-18 10:23:00 Sid [facility] CBC WITH DIFF 2022-12-18 10:23:00 Sid [facility] BASIC METABOLIC PANEL (NA, K , CL, CO2, GLUCOSE, BUN, CREATININE, CA) 2022-12-18 10:23:00 Sid [facility] CBC WITH DIFF 2022-12-18 10:23:00 Sid [facility] BASIC METABOLIC PANEL (NA, K , CL, CO2, GLUCOSE, BUN, CREATININE, CA) 2022-12-18 10:23:00 Sid [facility] CBC WITH DIFF 2022-12-18 10:23:00 Sid [facility] XR ABDOMEN 1 VW 2022-12-18 03:51:00 Sid [facility] XR ABDOMEN 1 VW 2022-12-18 03:51:00 Sid [facility] XR ABDOMEN 1 VW 2022-12-18 03:51:00 Sid [facility] BASIC METABOLIC PANEL (NA, K , CL, CO2, GLUCOSE, BUN, CREATININE, CA) 2022-12-17 22:56:00 Sid [facility] BASIC METABOLIC PANEL (NA, K , CL, CO2, GLUCOSE, BUN, CREATININE, CA) 2022-12-17 22:56:00 Sid [facility] BASIC METABOLIC PANEL (NA, K , CL, CO2, GLUCOSE, BUN, CREATININE, CA) 2022-12-17 22:56:00 Sid [facility] CBC WITH DIFF 2022-12-17 18:23:00 Sid [facility] CBC WITH DIFF 2022-12-17 18:23:00 Sid [facility] CBC WITH DIFF 2022-12-17 18:23:00 Sid [facility] CBC WITH DIFF 2022-12-17 18:23:00 Sid [facility] CBC WITH DIFF 2022-12-17 05:19:00 Sid [facility] CBC WITH DIFF 2022-12-17 05:19:00 Sid [facility] CBC WITH DIFF 2022-12-17 05:19:00 Sid [facility] CBC WITH DIFF 2022-12-17 05:19:00 Sid [facility] SURGICAL PATHOLOGY EXAM 2022-12-16 15:10:00 Sid [facility] SURGICAL PATHOLOGY EXAM 2022-12-16 15:10:00 Sid [facility] INTUBATION 2022-12-16 13:46:00 Marcia Macdonald [facility] LAPAROSCOPIC ASSISTED VAGINA L HYSTERECTOMY 2022-12-16 13:15:00 Sid [facility] LAPAROSCOPIC SALPINGECTOMY 2022-12-16 13:15:00 Sid [facility] TENSION FREE VAGINAL TAPE PROCEDURE 2022-12-16 13:15:00 Lj Villarreal [facility] CYSTOURETHROSCOPY 2022-12-16 13:15:00 Lj Villarreal [facility] EXAM UNDER ANESTHESIA 2022-12-16 13:15:00 Lj Villarreal [facility] LAPAROSCOPIC ASSISTED VAGINA L HYSTERECTOMY 2022-12-16 13:15:00 Sid [facility] LAPAROSCOPIC SALPINGECTOMY 2022-12-16 13:15[facility] T[facility] PROCEDURE 2022-12-16 13:15:00 Lj Villarreal [facility] CYSTOURETHROSCOPY 2022-12-16 13:15:00 Lj Villarreal [facility] EXAM UNDER ANESTHESIA 2022-12-16 13:15:00 Lj Villarreal [facility] LAPAROSCOPIC ASSISTED VAGINA L HYSTERECTOMY 2022-12-16 13:15:00 Sid [facility] LAPAROSCOPIC SALPINGECTOMY 2022-12-16 13:15:00 Sid [facility] TENSION FREE VAGINAL TAPE PROCEDURE 2022-12-16 13:15:00 Lj Villarreal [facility] CYSTOURETHROSCOPY 2022-12-16 13:15:00 [facility]ESTHESIA 2022-12-16 13:15:00 [facility] PO[facility] 2022-12-16 13:00:00 Balta [facility] POCT TEST 2022-12-16 13:00:00 Balta [facility] POCT TEST 2022-12-16 13:00:00 Balta [facility] POCT TEST 2022-12-16 13:00:00 Balta [facility] HOSPITAL ADMISSION 2022-12-16 06:01:00 Doctor Unassigned, [place] [facility] HOSPITAL ADMISSION 2022-12-16 06:01:00 Doctor Unassigned, [place] [facility] GLYCOSYLATED HEMOGLOBIN (A1C) 2022-12-14 19:21:00 Nichole Flor [facility] CBC WITH DIFF 2022-12-14 [facility] ABO GROUPING 2022-12-14 [facility] COMP. METABOLIC PANEL (00324) 2022-12-14 19:21:00 Sid [facility] URINE CULTURE 2022-12-13 22:40:00 Lj Villarreal [facility] DSU PRE-OP 2022-12-13 06:01:00 Doctor Unassigned, [place] [facility] DSU PRE-OP 2022-12-13 06:01:00 Doctor Unassigned, [place] [facility] POCT URINALYSIS W/O SPECIFIC GRAVITY 2022-12-13 00:00:00 Lj Villarreal [facility] POCT URINALYSIS W/O SPECIFIC GRAVITY 2022-12-13 00:00:00 Lj Villarreal [facility] INSURANCE CORRESPONDENCE 2022-12-01 05:01:00 Doctor Unassigned, [place] [facility] INSURANCE CORRESPONDENCE 2022-12-01 05:01:00 Doctor Unassigned, [place] [facility] INSURANCE CORRESPONDENCE 2022-12-01 05:01:00 Doctor Unassigned, [place] [facility] INSURANCE CORRESPONDENCE 2022-12-01 05:01:00 Doctor Unassigned, [place] [facility] URINE CULTURE 2022-11-22 21:37:00 Lj Villarreal [facility] POCT URINALYSIS W/O SPECIFIC GRAVITY 2022-11-22 00:00:00 Lj Villarreal [facility] POCT URINALYSIS W/O SPECIFIC GRAVITY 2022-11-22 00:00:00 Lj Villarreal [facility] URODYNAMIC STUDY DATA 2022-11-11 05:01:00 Doctor Unassigned, [place] [facility] DISCLOSURE AND CONSENT, MEDICAL AND SURGICAL PROCEDURES 2022-11-11 05:01:00 Doctor Unassigned, [place] [facility] DISCLOSURE AND CONSENT, MEDICAL AND SURGICAL PROCEDURES 2022-11-11 05:01:00 Doctor Unassigned, [place] [facility] URINE CULTURE 2022-11-02 18:39:00 Lj Villarreal [facility] URINALYSIS MICROSCOPIC 2022-11-02 18:39:00 Lj Villarreal [facility] URINE CULTURE 2022-10-29 18:43:00 Lj Villarreal [facility] PATIENT QUESTIONNAIRE 2022-10-29 05:01:00 Doctor Unassigned, [place] [facility] PATIENT QUESTIONNAIRE 2022-10-29 05:01:00 Doctor Unassigned, [place] [facility] POCT URINALYSIS W/O SPECIFIC GRAVITY 2022-10-29 00:00:00 Lj Villarreal [facility] POCT URINALYSIS W/O SPECIFIC GRAVITY 2022-10-29 00:00:00 Lj Villarreal [facility] CONSENT FOR CONTRACEPTION 2022-10-19 05:01:00 Doctor Unassigned, [place] [facility] POCT TEST 2022-10-19 00:00:00 Rhona Lau [facility] POCT TEST 2022-10-19 00:00:00 Sarah Lausol [facility] US PELVIS COMPLETE WITH TRANSVAGINAL 2022-10-12 17:36:27 Sarah Lausol [facility] US PELVIS COMPLETE WITH TRANSVAGINAL 2022-10-12 17:36:27 Sarah Lausol [facility] POCT URINALYSIS W/O SPECIFIC GRAVITY 2022-09-28 00:00:00 Sarah Lausol [facility] POCT URINALYSIS 2022-08-28 00:46:00 Corin Mir [facility] POCT TEST 2022-08-28 00:45:00 Corin Mir [facility] PAP SMEAR-LIQUID BASED-CP 2022-04-16 15:14:00 Nichole Flor [facility] CONSENT/REFUSAL FOR DIAGNOSI S AND TREATMENT 2022-04-05 19:37:32 Doctor Unassigned, [place] [facility] POCT URINALYSIS W/O SPECIFIC GRAVITY 2022-04-05 00:00:00 Nichole Flor [facility] EXTERNAL PAP SMEAR 2021-02-11 14:00:00 Doctor Unassigned, [place] [facility] GLYCOSYLATED HEMOGLOBIN (A1C) 2019-04-02 21:11:00 Lurdes Lucas [facility] GC & CHLAMYDIA AMPLIFIED ASSAY 2019-04-02 21:11:00 Lurdes Lucas [facility] GALV ONLY - VAGINAL PATHOGEN S BY DNA PROBE 2019-04-02 21:11:00 Lurdes Lucas [facility] URINALYSIS 2019-03-08 18:50:00 Michael Ochoa [facility] POCT URINALYSIS 2019-03-08 00:00:00 Michael Ochoa [facility] Plan of Care Planned Activity Planned Date Details Comments Source Goal Plan of Care Note [code = 03329-7] Goal Plan of Care Note [code = 55611-8] Goal Plan of Care Note [code = 31212-4] Goal Plan of Care Note [code = 55965-0] Goal Plan of Care Note [code = 77301-7] Goal Plan of Care Note [code = 55180-1] Goal Plan of Care Note [code = 05189-1] Goal Plan of Care Note [code = 27513-6] Goal Plan of Care Note [code = 00640-1] Goal Plan of Care Note [code = 93822-8] Goal Plan of Care Note [code = 44437-6] Goal Plan of Care Note [code = 66193-5] Goal Plan of Care Note [code = 57942-1] Goal Plan of Care Note [code = 98732-3] Goal Plan of Care Note [code = 58577-4] Goal Plan of Care Note [code = 89112-8] Goal Plan of Care Note [code = 85980-4] Goal Plan of Care Note [code = 74948-3] Goal Plan of Care Note [code = 59093-5] Goal Plan of Care Note [code = 65983-1] Goal Plan of Care Note [code = 83470-8] Goal Plan of Care Note [code = 20846-4] Goal Plan of Care Note [code = 84136-0] Goal Plan of Care Note [code = 74151-1] Goal Plan of Care Note [code = 26750-9] Goal Plan of Care Note [code = 76056-0] Goal Plan of Care Note [code = 65115-4] Goal Plan of Care Note [code = 33850-2] Goal Plan of Care Note [code = 94543-4] Goal Plan of Care Note [code = 04057-9] Goal Plan of Care Note [code = 40918-9] Goal Plan of Care Note [code = 04150-4] Goal Plan of Care Note [code = 43114-9] Goal Plan of Care Note [code = 16733-4] Goal Plan of Care Note [code = 42327-3] Goal Plan of Care Note [code = 25156-6] Goal Plan of Care Note [code = 13206-9] Goal Plan of Care Note [code = 93041-4] Goal Plan of Care Note [code = 90738-4] Goal Plan of Care Note [code = 97249-6] Goal Plan of Care Note [code = 72050-4] Goal Plan of Care Note [code = 29884-2] Encounters Start Date/Time End Date/Time Encounter Type Admission Type Attending Clinicians Care Facility Care Department Encounter ID Source 2023-02-23 11:04:00 Outpatient Nereida Gonzalez [facility] [id number] [facility] 2023-02-16 16:20:00 Outpatient Nereida Gonzalez [facility] [id number] [facility] 2023-04-18 13:00:00 2023-04-18 13:00:00 Outpatient [facility] [id number] [facility] 2023-04-08 11:00:00 2023-04-08 11:00:00 Outpatient NICHOLE CATHERINE CHERYAL [facility] [id number] [facility] 2023-03-24 09:30:00 2023-03-24 09:45:00 Office Visit Mike Masters [facility] 1.2.840.114 350.1.13.10 4.2.7.2.686 [id number] [facility] 2023-03-24 09:30:00 2023-03-24 09:30:00 Outpatient MIKE MORRISON [facility] [id number] [facility] 2023-03-01 00:00:00 2023-03-01 00:00:00 Outpatient GC_GCBZW_Ka kika_Lauren [facility] [id number] [facility] 2023-03-01 00:00:00 2023-03-01 00:00:00 [facility]EL[facility] [id number] [facility] 2023-02-25 00:00:00 2023-02-25 00:00:00 OFFICE VISIT NEW PT LEVEL 4 [facility] [id number] [facility] 2023-02-10 09:45:00 2023-02-10 10:00:00 Office Visit Mike Masters [facility] 1..114 350.1.13.10 4.2.7.2.686 [id number] [facility] 2023-02-10 09:45:00 2023-02-10 09:45:00 Outpatient R MIKE MASTERS [facility] [id number] [facility] 2023-01-27 08:45:00 2023-01-27 09:42:12 Outpatient R MIKE MASTERS [facility] [id number] [facility] 2023-01-27 08:45:00 2023-01-27 09:42:12 Office Visit Mike Masters [facility] 1..114 350.1.13.10 4.2.7.2.686 [id number] [facility] 2023-01-19 00:00:00 2023-01-19 00:00:00 Transition of Care Radha Bey 1..114 350.1.13.10 4.2.7.2.686 [id number] [facility] 2023-01-18 00:00:00 2023-01-18 00:00:00 Telephone Mike Masters [facility] 1..114 350.1.13.10 4.2.7.2.686 [id number] [facility] 2023-01-05 22:40:00 2023-01-17 22:02:00 Inpatient X MIKE MASTERS VTJOSE [facility] [id number] [facility] 2023-01-05 22:40:00 2023-01-17 22:02:00 Hospital Encounter Rahul Franco Whitney Walker, John Patrick [facility] 1.2.840.114 350.1.13.10 4.2.7.2.686 [id number] [facility] 2023-01-05 00:00:00 2023-01-05 00:00:00 Transition of Care Maida Radha M 1.2.840.1 15986.1.1 3.104.2.7 .3.610256 .8 [id number] [facility] 2023-01-05 00:00:00 2023-01-05 00:00:00 Telephone Mike Masters 1.2.840.1 06363.1.1 3.104.2.7 .3.933150 .8 [id number] [facility] 2023-01-05 00:00:00 2023-01-05 00:00:00 Travel 1.2.840.1 86276.1.1 3.104.2.7 .3.548045 .8 1.2.840.114 350.1.13.10 4.2.7.3.698 084.8 [id number] [facility] 2022-12-16 06:42:00 2023-01-04 13:46:00 Hospital Encounter Rhona Ham Jelani Walker, John Patrick 1.2.840.1 93481.1.1 3.104.2.7 .3.825301 .8 [id number] [facility] 2022-12-16 06:42:00 2023-01-04 13:46:00 Inpatient R MIKE MASTERS VTJO[facility] [id number] [facility] 2022-12-27 13:00:00 2022-12-27 13:00:00 Outpatient R OLGA, LJ VILLARREAL, LJ [facility] [id number] [facility] 2022-12-24 00:00:00 2022-12-24 00:00:00 Letter (Out) Rhona Ham 1.2.840.1 22635.1.1 3.104.2.7 .3.476170 .8 [id number] [facility] 2022-12-18 14:43:00 2022-12-18 18:18:00 Anesthesia Event Charmaine Spring 1.2.840.1 46185.1.1 3.104.2.7 .3.511924 .8 [id number] [facility] 2022-12-18 14:15:00 2022-12-18 17:24:00 Surgery [place] Sow 1.2.840.1 01730.1.1 3.104.2.7 .3.778450 .8 [id number] [facility] 2022-12-16 07:10:00 2022-12-16 11:28:00 Surgery Rhona Ham 1.2.840.1 92398.1.1 3.104.2.7 .3.513548 .8 [id number] [facility] 2022-12-16 07:35:00 2022-12-16 10:43:00 Anesthesia Event Daksha Hernandez Billy J 1.2.840.1 06781.1.1 3.104.2.7 .3.376164 .8 [id number] [facility] 2022-12-16 00:00:00 2022-12-16 00:00:00 Orders Only Doctor Unassigned, [place] 1.2840.1 38706.1.1 3.104.2.7 .3.176139 .8 [id number] [facility] 2022-12-14 13:15:00 2022-12-14 13:53:10 Outpatient R RHONA HAM MARISOL [facility] [id number] [facility] 2022-12-14 13:15:00 2022-12-14 13:53:10 [employer] [employer] Visit Rhona Ham 2, [facility] 1.2.840.1 79859.1.1 3.104.2.7 .3.228065 .8 [id number] [facility] 2022-12-13 14:00:00 2022-12-13 14:40:18 Outpatient R LJ VILLARREAL ELISHA [facility] [id number] [facility] 2022-12-13 14:00:00 2022-12-13 14:40:18 Office Visit Lj Villarreal 1.2.840.1 39012.1.1 3.104.2.7 .3.520865 .8 [id number] [facility] 2022-12-13 13:15:00 2022-12-13 13:43:07 Office Visit Rhnoa Ham 1.2.840.1 51114.1.1 3.104.2.7 .3.550842 .8 [id number] [facility] 2022-12-13 00:00:00 2022-12-13 00:00:00 Orders Only Doctor Unassigned, [place] 1.2.840.1 66952.1.1 3.104.2.7 .3.431813 .8 [id number] [facility] 2022-12-13 00:00:00 2022-12-13 00:00:00 Travel 1.2.840.1 19315.1.1 3.104.2.7 .3.586556 .8 1.2.840.114 350.1.13.10 4.2.7.3.698 084.8 [id number] [facility] 2022-12-08 00:00:00 2022-12-08 00:00:00 Travel 1.2.840.1 36121.1.1 3.104.2.7 .3.050735 .8 1.2.840.114 350.1.13.10 4.2.7.3.698 084.8 [id number] [facility] 2022-12-06 00:00:00 2022-12-06 00:00:00 Prep For Surgery jL Villarreal 1.2.840.1 22223.1.1 3.104.2.7 .3.568912 .8 [id number] [facility] 2022-12-05 00:00:00 2022-12-05 00:00:00 Outpatient GC_GCBZW_Ka diyala_S [facility] [id number] [facility] 2022-11-29 11:30:00 2022-11-29 11:48:21 Outpatient R CORONADO-CHESTER S, RHONA CORONADO[place] S RHONA [facility] [id number] [facility] 2022-11-29 11:30:00 2022-11-29 11:48:21 Office Visit Coron[place] abraham Rhona 1.2.840.1 25075.1.1 3.104.2.7 .3.942561 .8 [id number] [facility] 2022-11-29 00:00:00 2022-11-29 00:00:00 Travel 1.2.840.1 35322.1.1 3.104.2.7 .3.074069 .8 1.2.840.114 350.1.13.10 4.2.7.3.698 084.8 [id number] [facility] 2022-11-29 00:00:00 2022-11-29 00:00:00 Prep For Surgery Duane-Sarah Rosssol 1.2.840.1 29550.1.1 3.104.2.7 .3.766462 .8 [id number] [facility] 2022-11-27 20:00:00 2022-11-27 20:32:59 Outpatient R MIR ROBBINS [facility] [id number] [facility] 2022-11-27 20:00:00 2022-11-27 20:32:59 Urgent Care Unknown, Attending Mir Robbins 1.2.840.1 60566.1.1 3.104.2.7 .3.520272 .8 [id number] [facility] 2022-11-27 00:00:00 2022-11-27 00:00:00 Travel 1.2.840.1 12567.1.1 3.104.2.7 .3.314566 .8 1.2.840.114 350.1.13.10 4.2.7.3.698 084.8 [id number] [facility] 2022-11-22 16:00:00 2022-11-22 17:07:02 [id number] 2022-11-22 16:00:00 2022-11-22 17:07:02 Office Visit Lj Villarreal 1.2.840.1 85582.1.1 3.104.2.7 .3.975106 .8 [id number] [facility] 2022-11-22 00:00:00 2022-11-22 00:00:00 Travel 1.2.840.1 16274.1.1 3.104.2.7 .3.451807 .8 1.2.840.114 350.1.13.10 4.2.7.3.698 084.8 [id number] [facility] 2022-11-19 11:30:00 2022-11-19 11:30:00 Outpatient R LJ VILLARREAL ELISHA [facility] [id number] [facility] 2022-11-11 13:00:00 2022-11-11 15:23:06 Office Visit Ricco Daigle N 1.2.840.1 86996.1.1 3.104.2.7 .3.728042 .8 [id number] [facility] 2022-11-11 13:00:00 2022-11-11 13:00:00 Outpatient R RICCO DAIGLE [facility] [id number] [facility] 2022-11-11 00:00:00 2022-11-11 00:00:00 Travel 1.2.840.1 66322.1.1 3.104.2.7 .3.954389 .8 1.2.840.114 350.1.13.10 4.2.7.3.698 084.8 [id number] [facility] 2022-11-11 00:00:00 2022-11-11 00:00:00 Orders Only Doctor Unassigned, [place] 1.2.840.1 73511.1.1 3.104.2.7 .3.148292 .8 [id number] [facility] 2022-11-02 13:15:00 2022-11-02 13:46:09 [place] Visit Lj Villarreal 2, [facility] 1.2.840.1 58418.1.1 3.104.2.7 .3.032981 .8 [id number] [facility] 2022-11-02 13:15:00 2022-11-02 13:15:00 Outpatient R LJ VILLARREAL ELISHA [facility] [id number] [facility] 2022-11-02 00:00:00 2022-11-02 00:00:00 Telephone Ricco Daigle N 1.2.840.1 39978.1.1 3.104.2.7 .3.465992 .8 [id number] [facility] 2022-10-29 13:00:00 2022-10-29 15:52:13 Outpatient R LJ VILLARREAL OLGA LJ [facility] [id number] [facility] 2022-10-29 13:00:00 2022-10-29 15:52:13 Office Visit Lj Villarreal 1.2.840.1 26897.1.1 3.104.2.7 .3.324131 .8 [id number] [facility] 2022-10-29 00:00:00 2022-10-29 00:00:00 Travel 1.2.840.1 44378.1.1 3.104.2.7 .3.077627 .8 1.2.840.114 350.1.13.10 4.2.7.3.698 084.8 [id number] [facility] 2022-10-29 00:00:00 2022-10-29 00:00:00 Orders Only Doctor Unassigned, [place] 1.2.840.1 35180.1.1 3.104.2.7 .3.549501 .8 [id number] [facility] 2022-10-29 00:00:00 2022-10-29 00:00:00 Patient Secure Msg Doctor Unassigned, [place] 1.2.840.1 45622.1.1 3.104.2.7 .3.868154 .8 [id number] [facility] 2022-10-28 10:30:00 2022-10-28 10:30:00 Outpatient R RHONA HAM MARISOL [facility] [id number] [facility] 2022-10-27 00:00:00 2022-10-27 00:00:00 Travel 1.2.840.1 97754.1.1 3.104.2.7 .3.845802 .8 1.2.840.114 350.1.13.10 4.2.7.3.698 084.8 [id number] [facility] 2022-10-19 13:15:00 2022-10-19 14:00:38 Outpatient R JEREL S, RHONA CORONADO-CHESTER S RHONA [facility] [id number] [facility] 2022-10-19 13:15:00 2022-10-19 14:00:38 Office Visit Sarah Hamsol 1.2.840.1 68383.1.1 3.104.2.7 .3.954285 .8 [id number] [facility] 2022-10-19 00:00:00 2022-10-19 00:00:00 Travel 1.2.840.1 66270.1.1 3.104.2.7 .3.503988 .8 1.2.840.114 350.1.13.10 4.2.7.3.698 084.8 [id number] [facility] 2022-10-13 00:00:00 2022-10-13 00:00:00 Travel 1.2.840.1 51745.1.1 3.104.2.7 .3.735310 .8 1.2.840.114 350.1.13.10 4.2.7.3.698 084.8 [id number] [facility] 2022-10-12 11:02:43 2022-10-12 23:59:00 Outpatient R CORONADO-CHESTER S, RHONA CORONADO-CHESTER S RHONA [facility] [id number] [facility] 2022-10-12 11:00:00 2022-10-12 23:59:00 Hospital Encounter Leticia Haml 1.2.840.1 42158.1.1 3.104.2.7 .3.941177 .8 [id number] [facility] 2022-09-30 00:00:00 2022-09-30 00:00:00 Telephone Leticia Haml [facility] 1..840.114 350.1.13.10 4.2.7.2.686 [id number] [facility] 2022-09-28 14:00:00 2022-09-28 14:11:43 Outpatient R JEREL Abraham, RHONA JEREL Abraham [facility] [id number] [facility] 2022-09-28 14:00:00 2022-09-28 14:11:43 Office Visit Sarah Hamsol [facility] 1..840.114 350.1.13.10 4.2.7.2.686 [id number] [facility] 2022-09-28 11:30:00 2022-09-28 11:30:00 Outpatient R NICHOLE FLOR CHERYAL [facility] [id number] [facility] 2022-08-27 19:40:00 2022-08-27 20:01:14 Outpatient R RAJ VALDIVIA [facility] [id number] [facility] 2022-08-27 19:40:00 2022-08-27 20:01:14 Urgent Care Raj Valdivia Unknown, Attending [facility] 1..840.114 350.1.13.10 4.2.7.2.686 [id number] [facility] 2022-08-27 00:00:00 2022-08-27 00:00:00 Telephone Raj Valdiv[facility] 1..840.114 350.1.13.10 4.2.7.2.686 [id number] [facility] 2022-05-24 12:20:27 2022-05-24 23:59:00 Outpatient R ELIZABETH ROSALES [facility] [id number] [facility] 2022-05-24 12:20:27 2022-05-24 23:59:00 Hospital Encounter Elizabeth Rosales [facility] 1..840.114 350.1.13.10 4.2.7.2.686 [id number] [facility] 2022-04-26 00:00:00 2022-04-26 00:00:00 Patient Secure Msg Armand Hollyhal [facility] 1.840.114 350.1.13.10 4.2.7.2.686 [id number] [facility] 2022-04-21 00:00:00 2022-04-21 00:00:00 Outpatient R [facility] [id number] [facility] 2022-04-16 11:15:00 2022-04-16 11:30:00 [place] Visit 2, Adc Lab [facility] 1..840.114 350.1.13.10 4.2.7.2.686 [id number] [facility] 2022-04-16 09:00:00 2022-04-16 09:20:55 Outpatient R NICHOLE FLOR CHERYAL [facility] [id number] [facility] 2022-04-16 09:00:00 2022-04-16 09:20:55 Office Visit Nichole Flor [facility] 1.2840.114 350.1.13.10 4.2.7.2.686 [id number] [facility] 2022-04-15 14:30:00 2022-04-15 14:30:00 Outpatient R MIR ROBBINS [facility] [id number] [facility] 2022-04-09 00:00:00 2022-04-09 00:00:00 Pre Visit Outreach Janelle Bray 1.2.840.114 350.1.13.10 4.2.7.2.686 [id number] [facility] 2022-04-05 13:30:00 2022-04-05 14:02:52 [facility] [id number] [facility] 2022-04-05 13:30:00 2022-04-05 14:02:52 Office Visit Nichole Flor [facility] 1.2.840.114 350.1.13.10 4.2.7.2.686 [id number] [facility] 2022-04-05 00:00:00 2022-04-05 00:00:00 Orders Only Doctor Unassigned, [facility] 1.2.840.114 350.1.13.10 4.2.7.2.686 [id number] [facility] 2022-03-22 13:00:00 2022-03-22 13:00:00 Outpatient R UYEN RAMOS OGECHUKWU [facility] [id number] [facility] 2022-03-19 13:00:00 2022-03-19 13:00:00 Outpatient R UYEN RAMOS OGECHUKWU [facility] [id number] [facility] 2022-03-16 13:00:00 2022-03-16 13:00:00 Outpatient R UYEN RAMOS OGECHUKWU [facility] [id number] [facility] 2021-11-17 08:55:08 2021-11-17 08:55:08 Outpatient [facility] [id number] [facility] 2021-08-18 00:00:00 2021-08-18 00:00:00 Outpatient Visit [id number] 2021-02-05 14:30:00 2021-02-05 14:30:00 Outpatient R LURDES LUCAS [facility] [id number] [facility] 2020-01-01 13:15:00 2020-01-01 13:15:00 Outpatient R LURDES LUCAS [facility] [id number] [facility] 2019-05-02 00:00:00 2019-05-02 00:00:00 Telephone Lurdes Lucas [facility] 1.2.840.114 350.1.13.10 4.2.7.2.686 [id number] [facility] 2019-04-03 00:00:00 2019-04-03 00:00:00 Telephone Lurdes Lucas [facility] 1.2.840.114 350.1.13.10 4.2.7.2.686 [id number] [facility] 2019-04-02 13:44:47 2019-04-02 15:10:52 Office Visit Lurdes Lucas [facility] 1.2.840.114 350.1.13.10 4.2.7.2.686 [id number] [facility] 2019-04-02 13:45:00 2019-04-02 13:45:00 Outpatient R LURDES LUCAS [facility] [id number] [facility] 2019-03-08 09:05:43 2019-03-08 10:53:40 Office Visit Michael Ochoa [facility] 1.2.840.114 350.1.13.10 4.2.7.2.686 [id number] [facility] 2017-08-17 13:15:00 2017-08-17 13:15:00 Outpatient [facility] [id number] [facility] 2017-07-27 10:55:00 2017-07-27 10:55:00 Outpatient [facility] [id number] [facility] 2017-07-14 14:45:00 2017-07-14 14:45:00 Outpatient [facility] [id number] [facility] 2017-06-30 15:00:00 2017-06-30 15:00:00 Outpatient [facility] [id number] [facility] 2017-06-23 11:00:00 2017-06-23 11:00:00 Outpatient [facility] [id number] [facility] 2017-06-15 13:45:00 2017-06-15 13:45:00 Outpatient [facility] [id number] [facility] 2017-06-08 14:00:00 2017-06-08 14:00:00 Outpatient [facility] [id number] [facility] 2017-06-01 14:00:00 2017-06-01 14:00:00 Outpatient [facility] [id number] [facility] 2017-05-18 14:00:00 2017-05-18 14:00:00 Outpatient [facility] [id number] [facility] 2017-04-27 14:00:00 2017-04-27 14:00:00 Outpatient [facility] [id number] [facility] Results Test Description Test Time Test Comments Results Result Co m[facility] 12:07:04* Test Item Value Reference Range Interpretation Comme nts MAGNESIUM (test code = 7072794417) 1.8 mg/dL 1.7-2.4 Lab Interpretation (test cod e = 59429-3) [facility] 12:07:04* Test Item Value Reference Range Interpretation Comme nts PHOSPHORUS (test code = 3676852563) 3.9 mg/dL 2.5-5.0 Lab Interpretation (test cod e = 55399-8) [facility] 12:07:04* Test Item Value Reference Range Interpretation Comme nts TRIG (test code = 8110276526) 266 mg/dL 30-170 H Lab Interpretation (test cod e = 46370-2) Abnormal [facility]GAMMA [id number] 12:07:04* Test Item Value Reference Range Interpretation Comme nts GGT (test code = 4008534307) 145 U/L 13-40 H Lab Interpretation (test cod e = 22875-7) [facility] (NA, K, CL, CO2, GLUCOSE, BUN, CREATININE, CA)2023-01-17 12:07:03* Test Item Value Reference Range Interpretation Comme nts NA (test code = 9767392751) 139 mmol/L 135-145 K (test code = 9484534330) 4.4 mmol/L 3.5-5.0 CL (test code = 5217582345) 105 mmol/L 98-108 CO2 TOTAL (test code = 5590181452) 24 mmol/L 23-31 AGAP (test code = 4224419154) 10 2-16 BUN (test code = 1249640222) 18 mg/dL 7-23 GLUCOSE (test code = 6489879007) 130 mg/dL 70-110 H CREATININE (test code = 0534577313) 0.40 mg/dL 0.50-1.04 L CALCIUM (test code = 8571026350) 9.0 mg/dL 8.6-10.6 eGFR (test code = 67685-5) 126.9 mL/min/1.73m2 CKD-EPI eGFR (2020). Assuming creatinine has been stable day-to-day for at least three months, the eGFR indicates Category G1 (>= 90 mL/min/1.73 m2) Lab Interpretation (test code = 42232-3) [facility]60[facility] (ALB,T.PRO,BILI T,BU/BC,ALT,AST,ALK PHOS)2023-01-17 12:07:03* Test Item Value Reference Range Interpretation Comme nts TOTAL BILI (test code = 0940477895) 0.3 mg/dL 0.1-1.1 BILI UNCON (test code = 3648575146) 0.2 mg/dL 0.1-1.1 BILI CONJ (test code = 7807944304) 0.0 mg/dL 0.0-0.3 T PROTEIN (test code = 4995752782) 7.2 g/dL 6.3-8.2 ALBUMIN (test code = 0364971760) 3.7 g/dL 3.5-5.0 ALK PHOS (test code = 1856493184) 100 U/L 34-122 ALTv (test code = 1742-6) 58 U/L 5-35 H AST(SGOT) (test code = 4854490653) 46 U/L 13-40 H Lab Interpretation (test cod e = 37939-2) Abnormal [facility] [id number] 11:51:53* Test Item Value Reference Range Interpretation Comme nts IONIZED CA (test code = 9918693163) 4.80 mg/dL 4.50-5.30 PH SERUM (test code = 0636521356) 7.45 7.35-7.45 QUES Lab Interpretation (test cod e = 40679-7) [facility] WITH [id number] 11:15:36* Test Item Value Reference Range Interpretation Comme nts WBC (test code = 6690-2) 7.72 See_Comment [Automated [employer] ge] The system which generated this result transmitted reference range: 4.30 - 11.10 10*3/?L. The reference range was not used to interpret this result as normal/abnormal. RBC (test code = 789-8) 3.24 See_Comment L [Automated messa ge] The system which generated this result transmitted reference range: 3.93 - 5.25 10*6/?L. The reference range was not used to interpret this result as normal/abnormal. HGB (test code = 718-7) 9.2 g/dL 11.6-15.0 L HCT (test code = 4544-3) 29.3 % 35.7-45.2 L MCV (test code = 787-2) 90.4 fL 80.6-95.5 MCH (test code = 785-6) 28.4 pg 25.9-32.8 MCHC (test code = 786-4) 31.4 g/dL 31.6-35.1 L RDW-SD (test code = 35236-9) 55.3 fL 39.0-49.9 H RDW-CV (test code = 788-0) 17.0 % 12.0-15.5 H PLT (test code = 777-3) 437 See_Comment H [Automated messa ge] The system which generated this result transmitted reference range: 166 - 358 10*3/?L. The reference range was not used to interpret this result as normal/abnormal. MPV (test code = 98930-4) 10.1 fL 9.5-12.9 NRBC/100 WBC (test code = 2369496275) 0.0 See_Comment [Automated [employer] ssage] The system which generated this result transmitted reference range: 0.0 - 10.0 /100 WBCs. The reference range was not used to interpret this result as normal/abnormal. NRBC x10^3 (test code = 6656279531) See_Comment [Automated messa ge] The system which generated this result transmitted reference range: 10*3/?L. The reference range was not used to interpret this result as normal/abnormal. GRAN MAT (NEUT) % (test code = 770-8) 61.1 % IMM GRAN % (test code = 2678002049) 0.60 % LYMPH % (test code = 736-9) 25.1 % MONO % (test code = 5905-5) 7.4 % EOS % (test code = 713-8) 5.3 % BASO % (test code = 706-2) 0.5 % GRAN MAT x10^3(ANC) (test code = 6186704942) 4.71 10*3/uL 1.88-7.09 IMM GRAN x10^3 (test code = 9827603629) 0.05 10*3/uL 0.00-0.06 LYMPH x10^3 (test code = 731-0) 1.94 10*3/uL 1.32-3.29 MONO x10^3 (test code = 742-7) 0.57 10*3/uL 0.33-0.92 EOS x10^3 (test code = 711-2) 0.41 10*3/uL 0.03-0.39 H BASO x10^3 (test code = 704-7) 0.04 10*3/uL 0.01-0.07 Lab Interpretation (test code = 91692-4) Abnormal [facility] WITH [id number] 14:05:06* Test Item Value Reference Range Interpretation Comme nts WBC (test code = 6690-2) 9.42 See_Comment [Automated messa ge] The system which generated this result transmitted reference range: 4.30 - 11.10 10*3/?L. The reference range was not used to interpret this result as normal/abnormal. RBC (test code = 789-8) 3.23 See_Comment L [Automated messa ge] The system which generated this result transmitted reference range: 3.93 - 5.25 10*6/?L. The reference range was not used to interpret this result as normal/abnormal. HGB (test code = 718-7) 9.1 g/dL 11.6-15.0 L HCT (test code = 4544-3) 28.6 % 35.7-45.2 L MCV (test code = 787-2) 88.5 fL 80.6-95.5 MCH (test code = 785-6) 28.2 pg 25.9-32.8 MCHC (test code = 786-4) 31.8 g/dL 31.6-35.1 RDW-SD (test code = 90958-0) 54.0 fL 39.0-49.9 H RDW-CV (test code = 788-0) 16.9 % 12.0-15.5 H PLT (test code = 777-3) 448 See_Comment H [Automated messa ge] The system which generated this result transmitted reference range: 166 - 358 10*3/?L. The reference range was not used to interpret this result as normal/abnormal. MPV (test code = 33767-7) 9.8 fL 9.5-12.9 NRBC/100 WBC (test code = 5899313083) 0.0 See_Comment [Automated me ssage] The system which generated this result transmitted reference range: 0.0 - 10.0 /100 WBCs. The reference range was not used to interpret this result as normal/abnormal. NRBC x10^3 (test code = 1507238668) See_Comment [Automated messa ge] The system which generated this result transmitted reference range: 10*3/?L. The reference range was not used to interpret this result as normal/abnormal. GRAN MAT (NEUT) % (test code = 770-8) 68.9 % IMM GRAN % (test code = 1380281067) 0.60 % LYMPH % (test code = 736-9) 18.4 % MONO % (test code = 5905-5) 6.9 % EOS % (test code = 713-8) 4.7 % BASO % (test code = 706-2) 0.5 % GRAN MAT x10^3(ANC) (test code = 6233962219) 6.49 10*3/uL 1.88-7.09 IMM GRAN x10^3 (test code = 9771814641) 0.06 10*3/uL 0.00-0.06 LYMPH x10^3 (test code = 731-0) 1.73 10*3/uL 1.32-3.29 MONO x10^3 (test code = 742-7) 0.65 10*3/uL 0.33-0.92 EOS x10^3 (test code = 711-2) 0.44 10*3/uL 0.03-0.39 H BASO x10^3 (test code = 704-7) 0.05 10*3/uL 0.01-0.07 Lab Interpretation (test code = 50357-3) [facility] 12:30:01* Test Item Value Reference Range Interpretation Comme nts PHOSPHORUS (test code = 6795944194) 3.7 mg/dL 2.5-5.0 Lab Interpretation (test cod e = 03758-6) Normal [facility] 12:30:01* Test Item Value Reference Range Interpretation Comme nts MAGNESIUM (test code = 6160431238) 1.9 mg/dL 1.7-2.4 Lab Interpretation (test cod e = 17292-6) Normal [facility] METABOLIC PANEL (NA, K, CL, CO2, GLUCOSE, BUN, CREATININE, CA)2023-01-16 12:30:01* Test Item Value Reference Range Interpretation Comme nts NA (test code = 3725222742) 137 mmol/L 135-145 K (test code = 0879317421) 4.3 mmol/L 3.5-5.0 CL (test code = 8627184131) 104 mmol/L 98-108 CO2 TOTAL (test code = 5769759604) 24 mmol/L 23-31 AGAP (test code = 6122064101) 9 2-16 BUN (test code = 2297160040) 17 mg/dL 7-23 GLUCOSE (test code = 2732775179) 128 mg/dL 70-110 H CREATININE (test code = 0497946455) 0.37 mg/dL 0.50-1.04 L CALCIUM (test code = 8765084391) 8.7 mg/dL 8.6-10.6 eGFR (test code = 63613-9) 129.3 mL/min/1.73m2 CKD-EPI eGFR (2020). Assuming creatinine has been stable day-to-day for at least three months, the eGFR indicates Category G1 (>= 90 mL/min/1.73 m2) Lab Interpretation (test code = 92226-0) Abnormal [facility] METABOLIC PANEL (NA, K, CL, CO2, GLUCOSE, BUN, CREATININE, CA)2023-01-13 12:47:47* Test Item Value Reference Range Interpretation Comme nts NA (test code = 6090742845) 136 mmol/L 135-145 K (test code = 2832918964) 4.2 mmol/L 3.5-5.0 CL (test code = 0967787573) 99 mmol/L 98-108 CO2 TOTAL (test code = 1801044234) 30 mmol/L 23-31 AGAP (test code = 4159149046) 7 2-16 BUN (test code = 5366795968) 16 mg/dL 7-23 GLUCOSE (test code = 7586020426) 122 mg/dL 70-110 H CREATININE (test code = 5271062451) 0.47 mg/dL 0.50-1.04 L CALCIUM (test code = 0264406562) 8.8 mg/dL 8.6-10.6 eGFR (test code = 50212-4) 122.1 mL/min/1.73m2 CKD-EPI eGFR (2020). Assuming creatinine has been stable day-to-day for at least three months, the eGFR indicates Category G1 (>= 90 mL/min/1.73 m2) Lab Interpretation (test code = 14457-3) [facility] 12:44:08* Test Item Value Reference Range Interpretation Comme nts PHOSPHORUS (test code = 2104040504) 5.0 mg/dL 2.5-5.0 Lab Interpretation (test cod e = 98807-5) [facility] 12:44:08* Test Item Value Reference Range Interpretation Comme nts MAGNESIUM (test code = 0525877346) 2.0 mg/dL 1.7-2.4 Lab Interpretation (test cod e = 79725-6) [facility] [id number] 12:06:43* Test Item Value Reference Range Interpretation Comme nts WBC (test code = 6690-2) 10.80 See_Comment [Automated messa ge] The system which generated this result transmitted reference range: 4.30 - 11.10 10*3/?L. The reference range was not used to interpret this result as normal/abnormal. RBC (test code = 789-8) 3.00 See_Comment L [Automated messa ge] The system which generated this result transmitted reference range: 3.93 - 5.25 10*6/?L. The reference range was not used to interpret this result as normal/abnormal. HGB (test code = 718-7) 8.5 g/dL 11.6-15.0 L HCT (test code = 4544-3) 26.5 % 35.7-45.2 L MCV (test code = 787-2) 88.3 fL 80.6-95.5 MCH (test code = 785-6) 28.3 pg 25.9-32.8 MCHC (test code = 786-4) 32.1 g/dL 31.6-35.1 RDW-SD (test code = 97633-3) 48.8 fL 39.0-49.9 RDW-CV (test code = 788-0) 16.1 % 12.0-15.5 H PLT (test code = 777-3) 481 See_Comment H [Automated messa ge] The system which generated this result transmitted reference range: 166 - 358 10*3/?L. The reference range was not used to interpret this result as normal/abnormal. MPV (test code = 42211-7) 9.4 fL 9.5-12.9 L NRBC/100 WBC (test code = 6352816271) 0.2 See_Comment [Automated [employer] ssage] The system which generated this result transmitted reference range: 0.0 - 10.0 /100 WBCs. The reference range was not used to interpret this result as normal/abnormal. NRBC x10^3 (test code = 6205439835) 0.02 See_Comment [Automated messa ge] The system which generated this result transmitted reference range: 10*3/?L. The reference range was not used to interpret this result as normal/abnormal. GRAN MAT (NEUT) % (test code = 770-8) 68.6 % IMM GRAN % (test code = 6658472242) 2.00 % LYMPH % (test code = 736-9) 18.8 % MONO % (test code = 5905-5) 6.6 % EOS % (test code = 713-8) 3.4 % BASO % (test code = 706-2) 0.6 % GRAN MAT x10^3(ANC) (test code = 7259962343) 7.40 10*3/uL 1.88-7.09 H IMM GRAN x10^3 (test code = 4008182634) 0.22 10*3/uL 0.00-0.06 H LYMPH x10^3 (test code = 731-0) 2.03 10*3/uL 1.32-3.29 MONO x10^3 (test code = 742-7) 0.71 10*3/uL 0.33-0.92 EOS x10^3 (test code = 711-2) 0.37 10*3/uL 0.03-0.39 BASO x10^3 (test code = 704-7) 0.07 10*3/uL 0.01-0.07 Lab Interpretation (test code = 23305-6) [facility] 11:57:13* Test Item Value Reference Range Interpretation Comme nts PHOSPHORUS (test code = 7459895072) 4.4 mg/dL 2.5-5.0 Lab Interpretation (test cod e = 28292-3) [facility] 11:57:13* Test Item Value Reference Range Interpretation Comme nts MAGNESIUM (test code = 1877974833) 1.9 mg/dL 1.7-2.4 Lab Interpretation (test cod e = 49326-1) [facility] (NA, K, CL, CO2, GLUCOSE, BUN, CREATININE, CA)2023-01-12 11:57:13* Test Item Value Reference Range Interpretation Comme nts NA (test code = 8595172091) 137 mmol/L 135-145 K (test code = 1996538431) 4.9 mmol/L 3.5-5.0 CL (test code = 4975041633) 101 mmol/L 98-108 CO2 TOTAL (test code = 6847143068) 26 mmol/L 23-31 AGAP (test code = 0381533722) 10 2-16 BUN (test code = 6081815032) 12 mg/dL 7-23 GLUCOSE (test code = 9308768318) 125 mg/dL 70-110 H CREATININE (test code = 7039755628) 0.38 mg/dL 0.50-1.04 L CALCIUM (test code = 9489865690) 8.8 mg/dL 8.6-10.6 eGFR (test code = 58058-6) 128.5 mL/min/1.73m2 CKD-EPI eGFR (2020). Assuming creatinine has been stable day-to-day for at least three months, the eGFR indicates Category G1 (>= 90 mL/min/1.73 m2) Lab Interpretation (test code = 80337-6) Abnormal [facility] WITH [id number] 11:49:30* Test Item Value Reference Range Interpretation Comme nts WBC (test code = 6690-2) 11.73 See_Comment H [Automated messa ge] The system which generated this result transmitted reference range: 4.30 - 11.10 10*3/?L. The reference range was not used to interpret this result as normal/abnormal. RBC (test code = 789-8) 3.13 See_Comment L [Automated messa ge] The system which generated this result transmitted reference range: 3.93 - 5.25 10*6/?L. The reference range was not used to interpret this result as normal/abnormal. HGB (test code = 718-7) 8.6 g/dL 11.6-15.0 L HCT (test code = 4544-3) 27.6 % 35.7-45.2 L MCV (test code = 787-2) 88.2 fL 80.6-95.5 MCH (test code = 785-6) 27.5 pg 25.9-32.8 MCHC (test code = 786-4) 31.2 g/dL 31.6-35.1 L RDW-SD (test code = 43119-2) 48.4 fL 39.0-49.9 RDW-CV (test code = 788-0) 15.7 % 12.0-15.5 H PLT (test code = 777-3) 545 See_Comment H [Automated messa ge] The system which generated this result transmitted reference range: 166 - 358 10*3/?L. The reference range was not used to interpret this result as normal/abnormal. MPV (test code = 44660-9) 9.2 fL 9.5-12.9 L NRBC/100 WBC (test code = 5538067995) 0.3 See_Comment [Automated me ssage] The system which generated this result transmitted reference range: 0.0 - 10.0 /100 WBCs. The reference range was not used to interpret this result as normal/abnormal. NRBC x10^3 (test code = 3897562960) 0.03 See_Comment [Automated messa ge] The system which generated this result transmitted reference range: 10*3/?L. The reference range was not used to interpret this result as normal/abnormal. GRAN MAT (NEUT) % (test code = 770-8) 68.8 % IMM GRAN % (test code = 9079646152) 2.50 % LYMPH % (test code = 736-9) 18.9 % MONO % (test code = 5905-5) 6.1 % EOS % (test code = 713-8) 3.2 % BASO % (test code = 706-2) 0.5 % GRAN MAT x10^3(ANC) (test code = 1968052165) 8.07 10*3/uL 1.88-7.09 H IMM GRAN x10^3 (test code = 0905384635) 0.29 10*3/uL 0.00-0.06 H LYMPH x10^3 (test code = 731-0) 2.22 10*3/uL 1.32-3.29 MONO x10^3 (test code = 742-7) 0.71 10*3/uL 0.33-0.92 EOS x10^3 (test code = 711-2) 0.38 10*3/uL 0.03-0.39 BASO x10^3 (test code = 704-7) 0.06 10*3/uL 0.01-0.07 Lab Interpretation (test code = 35590-5) Abnormal [facility] WITH [id number] 11:53:42* Test Item Value Reference Range Interpretation Comme nts WBC (test code = 6690-2) 17.30 See_Comment H [Automated message] The system which generated this result transmitted reference range: 4.30 - 11.10 10*3/?L. The reference range was not used to interpret this result as normal/abnormal. RBC (test code = 789-8) 2.95 See_Comment L [Automated message] The system which generated this result transmitted reference range: 3.93 - 5.25 10*6/?L. The reference range was not used to interpret this result as normal/abnormal. HGB (test code = 718-7) 8.1 g/dL 11.6-15.0 L HCT (test code = 4544-3) 25.6 % 35.7-45.2 L MCV (test code = 787-2) 86.8 fL 80.6-95.5 MCH (test code = 785-6) 27.5 pg 25.9-32.8 MCHC (test code = 786-4) 31.6 g/dL 31.6-35.1 RDW-SD (test code = 68949-2) 47.9 fL 39.0-49.9 RDW-CV (test code = 788-0) 15.1 % 12.0-15.5 PLT (test code = 777-3) 785 See_Comment H [Automated message] The system which generated this result transmitted reference range: 166 - 358 10*3/?L. The reference range was not used to interpret this result as normal/abnormal. MPV (test code = 89446-0) 8.9 fL 9.5-12.9 L NRBC/100 WBC (test code = 6844848066) 0.0 See_Comment [Automated message] The system which generated this result transmitted reference range: 0.0 - 10.0 /100 WBCs. The reference range was not used to interpret this result as normal/abnormal. NRBC x10^3 (test code = 7918849905) See_Comment [Automated message] The system which generated this result transmitted reference range: 10*3/?L. The reference range was not used to interpret this result as normal/abnormal. GRAN MAT (NEUT) % (test code = 770-8) 76.8 % IMM GRAN % (test code = 9799093614) 3.80 % LYMPH % (test code = 736-9) 10.9 % MONO % (test code = 5905-5) 4.8 % EOS % (test code = 713-8) 3.3 % BASO % (test code = 706-2) 0.4 % GRAN MAT x10^3(ANC) (test code = 2493972431) 13.30 10*3/uL 1.88-7.09 H IMM GRAN x10^3 (test code = 9331766023) 0.65 10*3/uL 0.00-0.06 H LYMPH x10^3 (test code = 731-0) 1.88 10*3/uL 1.32-3.29 MONO x10^3 (test code = 742-7) 0.83 10*3/uL 0.33-0.92 EOS x10^3 (test code = 711-2) 0.57 10*3/uL 0.03-0.39 H BASO x10^3 (test code = 704-7) 0.07 10*3/uL 0.01-0.07 Lab Interpretation (test code = 14602-6) Abnormal [facility] METABOLIC PANEL (NA, K, CL, CO2, GLUCOSE, BUN, CREATININE, CA)2023-01-08 11:40:36* Test Item Value Reference Range Interpretation Comme nts NA (test code = 6784672096) 136 mmol/L 135-145 K (test code = 2975854371) 3.9 mmol/L 3.5-5.0 CL (test code = 5841789718) 107 mmol/L 98-108 CO2 TOTAL (test code = 3743667854) 19 mmol/L 23-31 L AGAP (test code = 7169671950) 10 2-16 BUN (test code = 4886146425) 5 mg/dL 7-23 L GLUCOSE (test code = 3826530370) 111 mg/dL 70-110 H CREATININE (test code = 5912977235) 0.36 mg/dL 0.50-1.04 L CALCIUM (test code = 5457392192) 8.1 mg/dL 8.6-10.6 L eGFR (test code = 51254-8) 130.2 mL/min/1.73m2 CKD-EPI eGFR (2020). Assuming creatinine has been stable day-to-day for at least three months, the eGFR indicates Category G1 (>= 90 mL/min/1.73 m2) Lab Interpretation (test code = 58575-9) Abnormal [facility] WITH [id number] 11:11:11* Test Item Value Reference Range Interpretation Comme nts WBC (test code = 6690-2) 17.99 See_Comment H [Automated message] The system which generated this result transmitted reference range: 4.30 - 11.10 10*3/?L. The reference range was not used to interpret this result as normal/abnormal. RBC (test code = 789-8) 2.97 See_Comment L [Automated message] The system which generated this result transmitted reference range: 3.93 - 5.25 10*6/?L. The reference range was not used to interpret this result as normal/abnormal. HGB (test code = 718-7) 8.2 g/dL 11.6-15.0 L HCT (test code = 4544-3) 25.8 % 35.7-45.2 L MCV (test code = 787-2) 86.9 fL 80.6-95.5 MCH (test code = 785-6) 27.6 pg 25.9-32.8 MCHC (test code = 786-4) 31.8 g/dL 31.6-35.1 RDW-SD (test code = 71715-9) 47.6 fL 39.0-49.9 RDW-CV (test code = 788-0) 14.8 % 12.0-15.5 PLT (test code = 777-3) 829 See_Comment H [Automated message] The system which generated this result transmitted reference range: 166 - 358 10*3/?L. The reference range was not used to interpret this result as normal/abnormal. MPV (test code = 92338-3) 9.0 fL 9.5-12.9 L NRBC/100 WBC (test code = 9941573125) 0.0 See_Comment [Automated message] The system which generated this result transmitted reference range: 0.0 - 10.0 /100 WBCs. The reference range was not used to interpret this result as normal/abnormal. NRBC x10^3 (test code = 6255648591) See_Comment [Automated message] The system which generated this result transmitted reference range: 10*3/?L. The reference range was not used to interpret this result as normal/abnormal. GRAN MAT (NEUT) % (test code = 770-8) 78.6 % IMM GRAN % (test code = 2528172198) 4.30 % LYMPH % (test code = 736-9) 8.4 % MONO % (test code = 5905-5) 6.1 % EOS % (test code = 713-8) 2.2 % BASO % (test code = 706-2) 0.4 % GRAN MAT x10^3(ANC) (test code = 2458431414) 14.12 10*3/uL 1.88-7.09 H IMM GRAN x10^3 (test code = 1130928686) 0.78 10*3/uL 0.00-0.06 H LYMPH x10^3 (test code = 731-0) 1.52 10*3/uL 1.32-3.29 MONO x10^3 (test code = 742-7) 1.09 10*3/uL 0.33-0.92 H EOS x10^3 (test code = 711-2) 0.40 10*3/uL 0.03-0.39 H BASO x10^3 (test code = 704-7) 0.08 10*3/uL 0.01-0.07 H Lab Interpretation (test code = 95891-0) Abnormal [facility] METABOLIC PANEL (NA, K, CL, CO2, GLUCOSE, BUN, CREATININE, CA)2023-01-07 10:33:30* Test Item Value Reference Range Interpretation Comme nts NA (test code = 2207786801) 136 mmol/L 135-145 K (test code = 6580747348) 4.1 mmol/L 3.5-5.0 CL (test code = 6640174848) 108 mmol/L 98-108 CO2 TOTAL (test code = 0191497590) 19 mmol/L 23-31 L AGAP (test code = 9583925520) 9 2-16 BUN (test code = 7548121196) 4 mg/dL 7-23 L GLUCOSE (test code = 4694528620) 98 mg/dL 70-110 CREATININE (test code = 5162936530) 0.39 mg/dL 0.50-1.04 L CALCIUM (test code = 0133343652) 8.4 mg/dL 8.6-10.6 L eGFR (test code = 54478-6) 127.7 mL/min/1.73m2 CKD-EPI eGFR (2020). Assuming creatinine has been stable day-to-day for at least three months, the eGFR indicates Category G1 (>= 90 mL/min/1.73 m2) Lab Interpretation (test code = 50793-8) [facility] Test Item Value Reference Range Interpretation Comme nts MAGNESIUM (test code = 0493184697) 1.8 mg/dL 1.7-2.4 Lab Interpretation (test cod e = 82895-6) [facility] 10:[facility]:30* Test Item Value Reference Range Interpretation Comme nts PHOSPHORUS (test code = 3312276177) 3.5 mg/dL 2.5-5.0 Lab Interpretation (test cod e = 28567-9) [facility] (NA, K, CL, CO2, GLUCOSE, BUN, CREATININE, CA)2023-01-06 15:05:58* Test Item Value Reference Range Interpretation Comme nts NA (test code = 4765934473) 134 mmol/L 135-145 L K (test code = 9784268340) 3.5 mmol/L 3.5-5.0 CL (test code = 0106233437) 103 mmol/L 98-108 CO2 TOTAL (test code = 7740487061) 20 mmol/L 23-31 L AGAP (test code = 1001255651) 11 2-16 BUN (test code = 0205068254) 5 mg/dL 7-23 L GLUCOSE (test code = 3005575795) 90 mg/dL 70-110 CREATININE (test code = 3325424699) 0.47 mg/dL 0.50-1.04 L CALCIUM (test code = 6438751260) 8.1 mg/dL 8.6-10.6 L eGFR (test code = 84337-9) 122.1 mL/min/1.73m2 CKD-EPI eGFR (2020). Assuming creatinine has been stable day-to-day for at least three months, the eGFR indicates Category G1 (>= 90 mL/min/1.73 m2) Lab Interpretation (test code = 53633-1) Abnormal [facility] WITH [id number] 14:56:55* Test Item Value Reference Range Interpretation Comme nts WBC (test code = 6690-2) 17.36 See_Comment H [Automated message] The system which generated this result transmitted reference range: 4.30 - 11.10 10*3/?L. The reference range was not used to interpret this result as normal/abnormal. RBC (test code = 789-8) 2.85 See_Comment L [Automated message] The system which generated this result transmitted reference range: 3.93 - 5.25 10*6/?L. The reference range was not used to interpret this result as normal/abnormal. HGB (test code = 718-7) 7.8 g/dL 11.6-15.0 L HCT (test code = 4544-3) 24.8 % 35.7-45.2 L MCV (test code = 787-2) 87.0 fL 80.6-95.5 MCH (test code = 785-6) 27.4 pg 25.9-32.8 MCHC (test code = 786-4) 31.5 g/dL 31.6-35.1 L RDW-SD (test code = 31257-9) 46.7 fL 39.0-49.9 RDW-CV (test code = 788-0) 14.6 % 12.0-15.5 PLT (test code = 777-3) 837 See_Comment H [Automated message] The system which generated this result transmitted reference range: 166 - 358 10*3/?L. The reference range was not used to interpret this result as normal/abnormal. MPV (test code = 43935-5) 9.0 fL 9.5-12.9 L NRBC/100 WBC (test code = 5549310848) 0.0 See_Comment [Automated message] The system which generated this result transmitted reference range: 0.0 - 10.0 /100 WBCs. The reference range was not used to interpret this result as normal/abnormal. NRBC x10^3 (test code = 1975101939) See_Comment [Automated message] The system which generated this result transmitted reference range: 10*3/?L. The reference range was not used to interpret this result as normal/abnormal. GRAN MAT (NEUT) % (test code = 770-8) 82.8 % IMM GRAN % (test code = 5410748607) 3.10 % LYMPH % (test code = 736-9) 6.4 % MONO % (test code = 5905-5) 5.8 % EOS % (test code = 713-8) 1.6 % BASO % (test code = 706-2) 0.3 % GRAN MAT x10^3(ANC) (test code = 0646743666) 14.38 10*3/uL 1.88-7.09 H IMM GRAN x10^3 (test code = 9350366464) 0.53 10*3/uL 0.00-0.06 H LYMPH x10^3 (test code = 731-0) 1.11 10*3/uL 1.32-3.29 L MONO x10^3 (test code = 742-7) 1.01 10*3/uL 0.33-0.92 H EOS x10^3 (test code = 711-2) 0.27 10*3/uL 0.03-0.39 BASO x10^3 (test code = 704-7) 0.06 10*3/uL 0.01-0.07 POLYCHROMASIA (test code = 57645-5) 2+ See_Comment [Automated message] The system which generated this result transmitted reference range: 2+. The reference range was not used to interpret this result as normal/abnormal. Lab Interpretation (test code = 36688-8) Abnormal [facility] WITH [id number] 06:22:43* Test Item Value Reference Range Interpretation Comme nts WBC (test code = 6690-2) 17.97 See_Comment H [Automated message] The system which generated this result transmitted reference range: 4.30 - 11.10 10*3/?L. The reference range was not used to interpret this result as normal/abnormal. RBC (test code = 789-8) 2.90 See_Comment L [Automated message] The system which generated this result transmitted reference range: 3.93 - 5.25 10*6/?L. The reference range was not used to interpret this result as normal/abnormal. HGB (test code = 718-7) 8.1 g/dL 11.6-15.0 L HCT (test code = 4544-3) 25.1 % 35.7-45.2 L MCV (test code = 787-2) 86.6 fL 80.6-95.5 MCH (test code = 785-6) 27.9 pg 25.9-32.8 MCHC (test code = 786-4) 32.3 g/dL 31.6-35.1 RDW-SD (test code = 92589-5) 46.5 fL 39.0-49.9 RDW-CV (test code = 788-0) 14.5 % 12.0-15.5 PLT (test code = 777-3) 869 See_Comment H [Automated message] The system which generated this result transmitted reference range: 166 - 358 10*3/?L. The reference range was not used to interpret this result as normal/abnormal. MPV (test code = 91622-0) 9.1 fL 9.5-12.9 L NRBC/100 WBC (test code = 6614579033) 0.0 See_Comment [Automated message] The system which generated this result transmitted reference range: 0.0 - 10.0 /100 WBCs. The reference range was not used to interpret this result as normal/abnormal. NRBC x10^3 (test code = 7161540413) See_Comment [Automated message] The system which generated this result transmitted reference range: 10*3/?L. The reference range was not used to interpret this result as normal/abnormal. GRAN MAT (NEUT) % (test code = 770-8) 77.9 % IMM GRAN % (test code = 9375293872) 4.40 % LYMPH % (test code = 736-9) 8.2 % MONO % (test code = 5905-5) 6.7 % EOS % (test code = 713-8) 2.5 % BASO % (test code = 706-2) 0.3 % GRAN MAT x10^3(ANC) (test code = 8910044553) 13.99 10*3/uL 1.88-7.09 H IMM GRAN x10^3 (test code = 4817526880) 0.79 10*3/uL 0.00-0.06 H LYMPH x10^3 (test code = 731-0) 1.48 10*3/uL 1.32-3.29 MONO x10^3 (test code = 742-7) 1.20 10*3/uL 0.33-0.92 H EOS x10^3 (test code = 711-2) 0.45 10*3/uL 0.03-0.39 H BASO x10^3 (test code = 704-7) 0.06 10*3/uL 0.01-0.07 Lab Interpretation (test code = 17785-4) [facility] Test Item Value Reference Range Interpretation Comme nts LIPASE (test code = 3799000614) 80 U/L 0-220 Lab Interpretation (test cod e = 71353-4) [facility]:05:03* Test Item Value Reference Range Interpretation Comme nts LIPASE (test code = 1435255583) 80 U/L 0-220 Lab Interpretation (test cod e = 95123-3) [facility] (ALB,T.PRO,BILI T,BU/BC,ALT,AST,ALK PHOS)2023-01-06 06:05:02* Test Item Value Reference Range Interpretation Comme nts TOTAL BILI (test code = 9754972297) 0.4 mg/dL 0.1-1.1 BILI UNCON (test code = 4400367865) 0.2 mg/dL 0.1-1.1 BILI CONJ (test code = 6495501706) 0.0 mg/dL 0.0-0.3 T PROTEIN (test code = 3731755848) 6.4 g/dL 6.3-8.2 ALBUMIN (test code = 8761340436) 3.1 g/dL 3.5-5.0 L ALK PHOS (test code = 2269920670) 129 U/L 34-122 H ALTv (test code = 1742-6) 33 U/L 5-35 AST(SGOT) (test code = 3536607860) 23 U/L 13-40 Lab Interpretation (test cod e = 34303-1) [facility] (NA, K, CL, CO2, GLUCOSE, BUN, CREATININE, CA)2023-01-06 06:05:02* Test Item Value Reference Range Interpretation Comme nts NA (test code = 1391890733) 133 mmol/L 135-145 L K (test code = 5878593013) 4.3 mmol/L 3.5-5.0 CL (test code = 2487592588) 101 mmol/L 98-108 CO2 TOTAL (test code = 6858758406) 20 mmol/L 23-31 L AGAP (test code = 2626439158) 12 2-16 BUN (test code = 1125074314) 9 mg/dL 7-23 GLUCOSE (test code = 5265883236) 82 mg/dL 70-110 CREATININE (test code = 3302770828) 0.49 mg/dL 0.50-1.04 L CALCIUM (test code = 1864468227) 8.9 mg/dL 8.6-10.6 eGFR (test code = 15294-9) 120.9 mL/min/1.73m2 CKD-EPI eGFR (2020). Assuming creatinine has been stable day-to-day for at least three months, the eGFR indicates Category G1 (>= 90 mL/min/1.73 m2) Lab Interpretation (test code = 68804-3) [facility] (ALB,T.PRO,BILI T,BU/BC,ALT,AST,ALK PHOS)2023-01-06 06:05:02* Test Item Value Reference Range Interpretation Comme nts TOTAL BILI (test code = 3028602147) 0.4 mg/dL 0.1-1.1 BILI UNCON (test code = 2197878693) 0.2 mg/dL 0.1-1.1 BILI CONJ (test code = 5601485935) 0.0 mg/dL 0.0-0.3 T PROTEIN (test code = 4206228723) 6.4 g/dL 6.3-8.2 ALBUMIN (test code = 0595933320) 3.1 g/dL 3.5-5.0 L ALK PHOS (test code = 5791948119) 129 U/L 34-122 H ALTv (test code = 1742-6) 33 U/L 5-35 AST(SGOT) (test code = 6675169289) 23 U/L 13-40 Lab Interpretation (test cod e = 49453-0) [facility] 06:05:02* Test Item Value Reference Range Interpretation Comme nts MAGNESIUM (test code = 8985867811) 1.8 mg/dL 1.7-2.4 Lab Interpretation (test cod e = 38778-3) [facility] [id number] 05:50:15* Test Item Value Reference Range Interpretation Comme nts LACTIC ACID (test code = 7887713646) 1.03 mmol/L 0.50-2.20 Lab Interpretation (test cod e = 73232-0) Normal [facility] Acid Whole [id number] 05:50:15* Test Item Value Reference Range Interpretation Comme nts LACTIC ACID (test code = 5976407376) 1.03 mmol/L 0.50-2.20 Lab Interpretation (test cod e = 66665-1) Normal [facility] WITH [id number] 12:59:51* Test Item Value Reference Range Interpretation Comme nts WBC (test code = 6690-2) 12.98 See_Comment H [Automated messa ge] The system which generated this result transmitted reference range: 4.30 - 11.10 10*3/?L. The reference range was not used to interpret this result as normal/abnormal. RBC (test code = 789-8) 2.67 See_Comment L [Automated messa ge] The system which generated this result transmitted reference range: 3.93 - 5.25 10*6/?L. The reference range was not used to interpret this result as normal/abnormal. HGB (test code = 718-7) 7.6 g/dL 11.6-15.0 L HCT (test code = 4544-3) 23.1 % 35.7-45.2 L MCV (test code = 787-2) 86.5 fL 80.6-95.5 MCH (test code = 785-6) 28.5 pg 25.9-32.8 MCHC (test code = 786-4) 32.9 g/dL 31.6-35.1 RDW-SD (test code = 74775-5) 45.5 fL 39.0-49.9 RDW-CV (test code = 788-0) 14.4 % 12.0-15.5 PLT (test code = 777-3) 942 See_Comment H [Automated messa ge] The system which generated this result transmitted reference range: 166 - 358 10*3/?L. The reference range was not used to interpret this result as normal/abnormal. MPV (test code = 01445-7) 9.1 fL 9.5-12.9 L NRBC/100 WBC (test code = 6003823642) 0.2 See_Comment [Automated [employer] ssage] The system which generated this result transmitted reference range: 0.0 - 10.0 /100 WBCs. The reference range was not used to interpret this result as normal/abnormal. NRBC x10^3 (test code = 0887916435) 0.03 See_Comment [Automated messa ge] The system which generated this result transmitted reference range: 10*3/?L. The reference range was not used to interpret this result as normal/abnormal. GRAN MAT (NEUT) % (test code = 770-8) 71.6 % IMM GRAN % (test code = 4663472298) 6.20 % LYMPH % (test code = 736-9) 12.1 % MONO % (test code = 5905-5) 7.4 % EOS % (test code = 713-8) 2.2 % BASO % (test code = 706-2) 0.5 % GRAN MAT x10^3(ANC) (test code = 2445093610) 9.29 10*3/uL 1.88-7.09 H IMM GRAN x10^3 (test code = 6997478013) 0.80 10*3/uL 0.00-0.06 H LYMPH x10^3 (test code = 731-0) 1.57 10*3/uL 1.32-3.29 MONO x10^3 (test code = 742-7) 0.96 10*3/uL 0.33-0.92 H EOS x10^3 (test code = 711-2) 0.29 10*3/uL 0.03-0.39 BASO x10^3 (test code = 704-7) 0.07 10*3/uL 0.01-0.07 Lab Interpretation (test code = 30927-1) Abnormal [facility] METABOLIC PANEL (NA, K, CL, CO2, GLUCOSE, BUN, CREATININE, CA)2023-01-03 12:46:52* Test Item Value Reference Range Interpretation Comme nts NA (test code = 4610062709) 134 mmol/L 135-145 L K (test code = 7527478178) 3.7 mmol/L 3.5-5.0 Slight hemolysis CL (test code = 5252634575) 103 mmol/L 98-108 CO2 TOTAL (test code = 6893613123) 26 mmol/L 23-31 AGAP (test code = 2730923804) 5 2-16 BUN (test code = 9204819078) 8 mg/dL 7-23 Slight hemolysis GLUCOSE (test code = 4253597843) 98 mg/dL 70-110 CREATININE (test code = 6567658721) 0.42 mg/dL 0.50-1.04 L CALCIUM (test code = 9781210075) 8.2 mg/dL 8.6-10.6 L eGFR (test code = 78376-0) 125.4 mL/min/1.73m2 CKD-EPI eGFR (2020). Assuming creatinine has been stable day-to-day for at least three months, the eGFR indicates Category G1 (>= 90 mL/min/1.73 m2) Lab Interpretation (test code = 71269-1) [facility] 12:46:52* Test Item Value Reference Range Interpretation Comme nts MAGNESIUM (test code = 0989694598) 2.1 mg/dL 1.7-2.4 Lab Interpretation (test cod e = 69748-6) Normal [facility] WITH [id number] 12:29:00* Test Item Value Reference Range Interpretation Comme nts WBC (test code = 6690-2) 11.98 See_Comment H [Automated messa ge] The system which generated this result transmitted reference range: 4.30 - 11.10 10*3/?L. The reference range was not used to interpret this result as normal/abnormal. RBC (test code = 789-8) 2.69 See_Comment L [Automated messa ge] The system which generated this result transmitted reference range: 3.93 - 5.25 10*6/?L. The reference range was not used to interpret this result as normal/abnormal. HGB (test code = 718-7) 7.6 g/dL 11.6-15.0 L HCT (test code = 4544-3) 23.1 % 35.7-45.2 L MCV (test code = 787-2) 85.9 fL 80.6-95.5 MCH (test code = 785-6) 28.3 pg 25.9-32.8 MCHC (test code = 786-4) 32.9 g/dL 31.6-35.1 RDW-SD (test code = 24941-0) 45.4 fL 39.0-49.9 RDW-CV (test code = 788-0) 14.5 % 12.0-15.5 PLT (test code = 777-3) 955 See_Comment H [Automated messa ge] The system which generated this result transmitted reference range: 166 - 358 10*3/?L. The reference range was not used to interpret this result as normal/abnormal. MPV (test code = 22680-6) 8.7 fL 9.5-12.9 L NRBC/100 WBC (test code = 2976514494) 0.3 See_Comment [Automated [employer] ssage] The system which generated this result transmitted reference range: 0.0 - 10.0 /100 WBCs. The reference range was not used to interpret this result as normal/abnormal. NRBC x10^3 (test code = 9622374024) 0.04 See_Comment [Automated messa ge] The system which generated this result transmitted reference range: 10*3/?L. The reference range was not used to interpret this result as normal/abnormal. GRAN MAT (NEUT) % (test code = 770-8) 71.1 % IMM GRAN % (test code = 8879214776) 4.30 % LYMPH % (test code = 736-9) 12.9 % MONO % (test code = 5905-5) 9.3 % EOS % (test code = 713-8) 1.8 % BASO % (test code = 706-2) 0.6 % GRAN MAT x10^3(ANC) (test code = 2678713059) 8.52 10*3/uL 1.88-7.09 H IMM GRAN x10^3 (test code = 8014871127) 0.52 10*3/uL 0.00-0.06 H LYMPH x10^3 (test code = 731-0) 1.55 10*3/uL 1.32-3.29 MONO x10^3 (test code = 742-7) 1.11 10*3/uL 0.33-0.92 H EOS x10^3 (test code = 711-2) 0.21 10*3/uL 0.03-0.39 BASO x10^3 (test code = 704-7) 0.07 10*3/uL 0.01-0.07 BANDS (test code = 3825302804) Increased A Lab Interpretation (test code = 31525-5) Abnormal [facility] WITH [id number] 15:54:24* Test Item Value Reference Range Interpretation Comme nts WBC (test code = 6690-2) 11.81 See_Comment H [Automated messa ge] The system which generated this result transmitted reference range: 4.30 - 11.10 10*3/?L. The reference range was not used to interpret this result as normal/abnormal. RBC (test code = 789-8) 3.03 See_Comment L [Automated messa ge] The system which generated this result transmitted reference range: 3.93 - 5.25 10*6/?L. The reference range was not used to interpret this result as normal/abnormal. HGB (test code = 718-7) 8.6 g/dL 11.6-15.0 L HCT (test code = 4544-3) 26.2 % 35.7-45.2 L MCV (test code = 787-2) 86.5 fL 80.6-95.5 MCH (test code = 785-6) 28.4 pg 25.9-32.8 MCHC (test code = 786-4) 32.8 g/dL 31.6-35.1 RDW-SD (test code = 04640-2) 45.7 fL 39.0-49.9 RDW-CV (test code = 788-0) 14.3 % 12.0-15.5 PLT (test code = 777-3) 1184 See_Comment HH [Automated messa ge] The system which generated this result transmitted reference range: 166 - 358 10*3/?L. The reference range was not used to interpret this result as normal/abnormal. MPV (test code = 98561-5) 9.0 fL 9.5-12.9 L NRBC/100 WBC (test code = 6176653816) 0.0 See_Comment [Automated [employer] ssage] The system which generated this result transmitted reference range: 0.0 - 10.0 /100 WBCs. The reference range was not used to interpret this result as normal/abnormal. NRBC x10^3 (test code = 0529814941) See_Comment [Automated [employer] ge] The system which generated this result transmitted reference range: 10*3/?L. The reference range was not used to interpret this result as normal/abnormal. GRAN MAT (NEUT) % (test code = 770-8) 67.7 % IMM GRAN % (test code = 7700048724) 3.10 % LYMPH % (test code = 736-9) 17.3 % MONO % (test code = 5905-5) 9.1 % EOS % (test code = 713-8) 2.0 % BASO % (test code = 706-2) 0.8 % GRAN MAT x10^3(ANC) (test code = 3447311757) 8.00 10*3/uL 1.88-7.09 H IMM GRAN x10^3 (test code = 2004452647) 0.37 10*3/uL 0.00-0.06 H LYMPH x10^3 (test code = 731-0) 2.04 10*3/uL 1.32-3.29 MONO x10^3 (test code = 742-7) 1.07 10*3/uL 0.33-0.92 H EOS x10^3 (test code = 711-2) 0.24 10*3/uL 0.03-0.39 BASO x10^3 (test code = 704-7) 0.09 10*3/uL 0.01-0.07 H BANDS (test code = 8182177761) Increased A Lab Interpretation (test code = 42605-3) Abnormal [facility] METABOLIC PANEL (NA, K, CL, CO2, GLUCOSE, BUN, CREATININE, CA)2023-01-02 15:30:59* Test Item Value Reference Range Interpretation Comme nts NA (test code = 1892606722) 136 mmol/L 135-145 K (test code = 9569476464) 3.8 mmol/L 3.5-5.0 CL (test code = 3753609337) 103 mmol/L 98-108 CO2 TOTAL (test code = 4432448783) 22 mmol/L 23-31 L AGAP (test code = 2680908232) 11 2-16 BUN (test code = 3598057793) 7 mg/dL 7-23 GLUCOSE (test code = 4479394216) 93 mg/dL 70-110 CREATININE (test code = 8694903496) 0.38 mg/dL 0.50-1.04 L CALCIUM (test code = 3688103895) 8.4 mg/dL 8.6-10.6 L eGFR (test code = 81967-8) 128.5 mL/min/1.73m2 CKD-EPI eGFR (2020). Assuming creatinine has been stable day-to-day for at least three months, the eGFR indicates Category G1 (>= 90 mL/min/1.73 m2) Lab Interpretation (test code = 54903-2) Abnormal [facility] METABOLIC PANEL (NA, K, CL, CO2, GLUCOSE, BUN, CREATININE, CA)2022-12-31 14:56:03* Test Item Value Reference Range Interpretation Comme nts NA (test code = 9078339540) 135 mmol/L 135-145 K (test code = 2740597393) 3.9 mmol/L 3.5-5.0 CL (test code = 9444587086) 100 mmol/L 98-108 CO2 TOTAL (test code = 8999691431) 28 mmol/L 23-31 AGAP (test code = 2581090277) 7 2-16 BUN (test code = 9513505926) 13 mg/dL 7-23 GLUCOSE (test code = 5277589525) 84 mg/dL 70-110 CREATININE (test code = 3750493861) 0.48 mg/dL 0.50-1.04 L CALCIUM (test code = 5871571687) 8.3 mg/dL 8.6-10.6 L eGFR (test code = 28769-4) 121.5 mL/min/1.73m2 CKD-EPI eGFR (2020). Assuming creatinine has been stable day-to-day for at least three months, the eGFR indicates Category G1 (>= 90 mL/min/1.73 m2) Lab Interpretation (test code = 08294-7) Abnormal [facility] WITH [id number] 14:46:54* Test Item Value Reference Range Interpretation Comme nts WBC (test code = 6690-2) 12.23 See_Comment H [Automated message] The system which generated this result transmitted reference range: 4.30 - 11.10 10*3/?L. The reference range was not used to interpret this result as normal/abnormal. RBC (test code = 789-8) 3.15 See_Comment L [Automated message] The system which generated this result transmitted reference range: 3.93 - 5.25 10*6/?L. The reference range was not used to interpret this result as normal/abnormal. HGB (test code = 718-7) 8.9 g/dL 11.6-15.0 L HCT (test code = 4544-3) 27.2 % 35.7-45.2 L MCV (test code = 787-2) 86.3 fL 80.6-95.5 MCH (test code = 785-6) 28.3 pg 25.9-32.8 MCHC (test code = 786-4) 32.7 g/dL 31.6-35.1 RDW-SD (test code = 03302-7) 46.0 fL 39.0-49.9 RDW-CV (test code = 788-0) 14.5 % 12.0-15.5 PLT (test code = 777-3) 1139 See_Comment HH [Automated message] The system which generated this result transmitted reference range: 166 - 358 10*3/?L. The reference range was not used to interpret this result as normal/abnormal. MPV (test code = 29845-9) 9.3 fL 9.5-12.9 L NRBC/100 WBC (test code = 7619034807) 0.0 See_Comment [Automated message] The system which generated this result transmitted reference range: 0.0 - 10.0 /100 WBCs. The reference range was not used to interpret this result as normal/abnormal. NRBC x10^3 (test code = 3413244518) See_Comment [Automated message] The system which generated this result transmitted reference range: 10*3/?L. The reference range was not used to interpret this result as normal/abnormal. GRAN MAT (NEUT) % (test code = 770-8) 67.1 % IMM GRAN % (test code = 7254989065) 3.10 % LYMPH % (test code = 736-9) 17.3 % MONO % (test code = 5905-5) 10.1 % EOS % (test code = 713-8) 1.6 % BASO % (test code = 706-2) 0.8 % GRAN MAT x10^3(ANC) (test code = 6217740102) 8.21 10*3/uL 1.88-7.09 H IMM GRAN x10^3 (test code = 3183239112) 0.38 10*3/uL 0.00-0.06 H LYMPH x10^3 (test code = 731-0) 2.12 10*3/uL 1.32-3.29 MONO x10^3 (test code = 742-7) 1.23 10*3/uL 0.33-0.92 H EOS x10^3 (test code = 711-2) 0.19 10*3/uL 0.03-0.39 BASO x10^3 (test code = 704-7) 0.10 10*3/uL 0.01-0.07 H POLYCHROMASIA (test code = 78991-6) 2+ See_Comment [Automated message] The system which generated this result transmitted reference range: 2+. The reference range was not used to interpret this result as normal/abnormal. BANDS (test code = 6389900140) MARKED INCREASED A DOHLE BODIES (test code = 7792-5) Present A Lab Interpretation (test code = 78498-5) Abnormal [facility] WITH [id number] 12:12:04* Test Item Value Reference Range Interpretation Comme nts WBC (test code = 6690-2) 10.90 See_Comment [Automated messa ge] The system which generated this result transmitted reference range: 4.30 - 11.10 10*3/?L. The reference range was not used to interpret this result as normal/abnormal. RBC (test code = 789-8) 3.00 See_Comment L [Automated messa ge] The system which generated this result transmitted reference range: 3.93 - 5.25 10*6/?L. The reference range was not used to interpret this result as normal/abnormal. HGB (test code = 718-7) 8.6 g/dL 11.6-15.0 L HCT (test code = 4544-3) 26.5 % 35.7-45.2 L MCV (test code = 787-2) 88.3 fL 80.6-95.5 MCH (test code = 785-6) 28.7 pg 25.9-32.8 MCHC (test code = 786-4) 32.5 g/dL 31.6-35.1 RDW-SD (test code = 53763-4) 46.2 fL 39.0-49.9 RDW-CV (test code = 788-0) 14.4 % 12.0-15.5 PLT (test code = 777-3) 1123 See_Comment HH [Automated messa ge] The system which generated this result transmitted reference range: 166 - 358 10*3/?L. The reference range was not used to interpret this result as normal/abnormal. MPV (test code = 11800-4) 9.7 fL 9.5-12.9 NRBC/100 WBC (test code = 4182135031) 0.0 See_Comment [Automated [employer] ssage] The system which generated this result transmitted reference range: 0.0 - 10.0 /100 WBCs. The reference range was not used to interpret this result as normal/abnormal. NRBC x10^3 (test code = 6799107259) See_Comment [Automated messa ge] The system which generated this result transmitted reference range: 10*3/?L. The reference range was not used to interpret this result as normal/abnormal. GRAN MAT (NEUT) % (test code = 770-8) 68.5 % IMM GRAN % (test code = 1564066758) 2.80 % LYMPH % (test code = 736-9) 17.5 % MONO % (test code = 5905-5) 9.6 % EOS % (test code = 713-8) 1.1 % BASO % (test code = 706-2) 0.5 % GRAN MAT x10^3(ANC) (test code = 8599084294) 7.47 10*3/uL 1.88-7.09 H IMM GRAN x10^3 (test code = 0870459920) 0.30 10*3/uL 0.00-0.06 H LYMPH x10^3 (test code = 731-0) 1.91 10*3/uL 1.32-3.29 MONO x10^3 (test code = 742-7) 1.05 10*3/uL 0.33-0.92 H EOS x10^3 (test code = 711-2) 0.12 10*3/uL 0.03-0.39 BASO x10^3 (test code = 704-7) 0.05 10*3/uL 0.01-0.07 BANDS (test code = 4537237386) Increased A Lab Interpretation (test code = 46356-2) Abnormal [facility] METABOLIC PANEL (NA, K, CL, CO2, GLUCOSE, BUN, CREATININE, CA)2022-12-30 12:04:55* Test Item Value Reference Range Interpretation Comme nts NA (test code = 6176763824) 134 mmol/L 135-145 L K (test code = 9882586447) 4.2 mmol/L 3.5-5.0 CL (test code = 7778196858) 101 mmol/L 98-108 CO2 TOTAL (test code = 6062008153) 27 mmol/L 23-31 AGAP (test code = 7376405587) 6 2-16 BUN (test code = 9692306452) 12 mg/dL 7-23 GLUCOSE (test code = 6444072879) 109 mg/dL 70-110 CREATININE (test code = 5472250392) 0.37 mg/dL 0.50-1.04 L CALCIUM (test code = 4343632400) 8.1 mg/dL 8.6-10.6 L eGFR (test code = 08117-8) 129.3 mL/min/1.73m2 CKD-EPI eGFR (2020). Assuming creatinine has been stable day-to-day for at least three months, the eGFR indicates Category G1 (>= 90 mL/min/1.73 m2) Lab Interpretation (test code = 56215-0) [facility]* Test Item Value Reference Range Interpretation Comme nts MAGNESIUM (test code = 2102733557) 2.0 mg/dL 1.7-2.4 Lab Interpretation (test cod e = 82317-4) [facility] 12:04:55* Test Item Value Reference Range Interpretation Comme nts PHOSPHORUS (test code = 0811510636) 3.8 mg/dL 2.5-5.0 Lab Interpretation (test cod e = 43684-0) [facility] [id number] 12:52:34* Test Item Value Reference Range Interpretation Comme nts WBC (test code = 6690-2) 12.57 See_Comment H [Automated messa ge] The system which generated this result transmitted reference range: 4.30 - 11.10 10*3/?L. The reference range was not used to interpret this result as normal/abnormal. RBC (test code = 789-8) 2.77 See_Comment L [Automated messa ge] The system which generated this result transmitted reference range: 3.93 - 5.25 10*6/?L. The reference range was not used to interpret this result as normal/abnormal. HGB (test code = 718-7) 7.9 g/dL 11.6-15.0 L HCT (test code = 4544-3) 24.1 % 35.7-45.2 L MCV (test code = 787-2) 87.0 fL 80.6-95.5 MCH (test code = 785-6) 28.5 pg 25.9-32.8 MCHC (test code = 786-4) 32.8 g/dL 31.6-35.1 RDW-SD (test code = 94839-5) 46.6 fL 39.0-49.9 RDW-CV (test code = 788-0) 14.5 % 12.0-15.5 PLT (test code = 777-3) 920 See_Comment H [Automated [employer] ge] The system which generated this result transmitted reference range: 166 - 358 10*3/?L. The reference range was not used to interpret this result as normal/abnormal. MPV (test code = 08208-8) 9.9 fL 9.5-12.9 IPF % (test code = 9457962650) 3.6 % 1.3-7.7 Platelet count measured by fluorescence method. NRBC/100 WBC (test code = 6178244885) 0.0 See_Comment [Automated [employer] ssage] The system which generated this result transmitted reference range: 0.0 - 10.0 /100 WBCs. The reference range was not used to interpret this result as normal/abnormal. NRBC x10^3 (test code = 7784832827) See_Comment [Automated [employer] ge] The system which generated this result transmitted reference range: 10*3/?L. The reference range was not used to interpret this result as normal/abnormal. GRAN MAT (NEUT) % (test code = 770-8) 75.3 % IMM GRAN % (test code = 7787387996) 2.40 % LYMPH % (test code = 736-9) 12.0 % MONO % (test code = 5905-5) 9.0 % EOS % (test code = 713-8) 0.9 % BASO % (test code = 706-2) 0.4 % GRAN MAT x10^3(ANC) (test code = 3080572290) 9.47 10*3/uL 1.88-7.09 H IMM GRAN x10^3 (test code = 1046907982) 0.30 10*3/uL 0.00-0.06 H LYMPH x10^3 (test code = 731-0) 1.51 10*3/uL 1.32-3.29 MONO x10^3 (test code = 742-7) 1.13 10*3/uL 0.33-0.92 H EOS x10^3 (test code = 711-2) 0.11 10*3/uL 0.03-0.39 BASO x10^3 (test code = 704-7) 0.05 10*3/uL 0.01-0.07 BANDS (test code = 8754046437) Increased A REACT LYMPHS (test code = 2869851297) Rare GIANT PLATELETS (test code = 5908-9) Present See_Comment A [Automated messa ge] The system which generated this result transmitted reference range: (none). The reference range was not used to interpret this result as normal/abnormal. Lab Interpretation (test code = 03931-2) [facility] 12:46:50* Test Item Value Reference Range Interpretation Comme nts PHOSPHORUS (test code = 6308568454) 4.6 mg/dL 2.5-5.0 Lab Interpretation (test cod e = 85306-7) [facility] (NA, K, CL, CO2, GLUCOSE, BUN, CREATININE, CA)2022-12-29 12:46:49* Test Item Value Reference Range Interpretation Comme nts NA (test code = 2201083946) 134 mmol/L 135-145 L K (test code = 6138274095) 3.9 mmol/L 3.5-5.0 Slight hemolysis CL (test code = 8286764917) 103 mmol/L 98-108 CO2 TOTAL (test code = 7970860844) 24 mmol/L 23-31 AGAP (test code = 5835374190) 7 2-16 BUN (test code = 9010553198) 10 mg/dL 7-23 Slight hemolysis GLUCOSE (test code = 8759291822) 121 mg/dL 70-110 H CREATININE (test code = 7438721921) 0.29 mg/dL 0.50-1.04 L CALCIUM (test code = 6462453178) 7.5 mg/dL 8.6-10.6 L eGFR (test code = 93443-8) 137.1 mL/min/1.73m2 CKD-EPI eGFR (2020). Assuming creatinine has been stable day-to-day for at least three months, the eGFR indicates Category G1 (>= 90 mL/min/1.73 m2) Lab Interpretation (test code = 65150-6) [facility] 12:46:49* Test Item Value Reference Range Interpretation Comme nts MAGNESIUM (test code = 9289859077) 1.9 mg/dL 1.7-2.4 Lab Interpretation (test cod e = 63047-3) [facility] [place] Packed RBC (in units), 1 Units 2022-12-27 16:03:01* Test Item Value Reference Range Interpretation Comme nts Cross Match Result (test code = 4409) Compatible ISBT Blood Type Code (test code = 074031) 6200 Unit Blood Type (test code = 4410) A Pos Unit Number (test code = 4411) [id number] Blood Expiration Date & Time (test code = 781942) 803577108301 Status Information (test code = 4412) Issued Product Identification (test code = 4413) Red Blood Cells Product Code (test code = 4414) [id number] Performed at [facility] Blood [address] Free: [phone] No. [id number] [facility] Packed RBC (in units), 1 Units 2022-12-27 16:03:01* Test Item Value Reference Range Interpretation Comme nts Cross Match Result (test code = 4409) Compatible ISBT Blood Type Code (test code = 861509) 6200 Unit Blood Type (test code = 4410) A Pos Unit Number (test code = 4411) [id number] Blood Expiration Date & Time (test code = 709046) 799724753700 Status Information (test code = 4412) Issued Product Identification (test code = 4413) Red Blood Cells Product Code (test code = 4414) [id number] Performed at [facility] Blood [address] Free: [phone] No. [id number] [facility]22-[facility]27 13:20:08* Test Item Value Reference Range Interpretation Comme nts POCT GLU (test code = 2129070387) 116 mg/dL 70-110 H Lab Interpretation (test cod e = 88500-0) Abnormal [facility] GLUCOSE (AUTOMATED)2022-12-27 13:20:08* Test Item Value Reference Range Interpretation Comme nts POCT GLU (test code = 2135392246) 116 mg/dL 70-110 H Lab Interpretation (test cod e = 72358-1) Abnormal [facility] GLUCOSE (AUTOMATED)2022-12-26 23:31:11* Test Item Value Reference Range Interpretation Comme nts POCT GLU (test code = 8149965382) 112 mg/dL 70-110 H Lab Interpretation (test cod e = 96991-8) Abnormal [facility] GLUCOSE (AUTOMATED)2022-12-26 16:13:21* Test Item Value Reference Range Interpretation Comme nts POCT GLU (test code = 9290727318) 112 mg/dL 70-110 H Lab Interpretation (test cod e = 45035-1) [facility]normal [facility] [id number] 15:49:35* Test Item Value Reference Range Interpretation Comme nts Blood Culture-Aerobic (test code = 12385-7) Culture positive. See Blood Culture Workup for additional information. No growth AA Previous preliminary verified result was Culture In Progress on 12/18/2022 at 1801 CSTThis is a corrected result. 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 See Blood Culture Workup for additional information. No growth AA Previous preliminary verified result was Culture In Progress on 12/18/2022 at 1801 SECURITY SYSTEM ADMINISTRATOR Lab Interpretation (test code = 60988-2) Abnormal [facility] GLUCOSE (AUTOMATED)2022-12-26 01:49:16* Test Item Value Reference Range Interpretation Comme nts POCT GLU (test code = 6238100746) 130 mg/dL 70-110 H Lab Interpretation (test cod e = 78634-3) Abnormal [facility] GLUCOSE (AUTOMATED)2022-12-25 14:11:05* Test Item Value Reference Range Interpretation Comme nts POCT GLU (test code = 9083042896) 135 mg/dL 70-110 H Lab Interpretation (test cod e = 74895-5) Abnormal [facility] GLUCOSE (AUTOMATED)2022-12-25 06:09:10* Test Item Value Reference Range Interpretation Comme nts POCT GLU (test code = 3976199367) 120 mg/dL 70-110 H Lab Interpretation (test cod e = 33300-4) Abnormal [facility] GLUCOSE (AUTOMATED)2022-12-24 18:26:20* Test Item Value Reference Range Interpretation Comme nts POCT GLU (test code = 3683598726) 135 mg/dL 70-110 H Lab Interpretation (test cod e = 83187-9) Abnormal [facility] GLUCOSE (AUTOMATED)2022-12-23 22:33:00* Test Item Value Reference Range Interpretation Comme nts POCT GLU (test code = 8895837349) 135 mg/dL 70-110 H Lab Interpretation (test cod e = 20417-8) Abnormal [facility] GLUCOSE (AUTOMATED)2022-12-23 07:09:56* Test Item Value Reference Range Interpretation Comme nts POCT GLU (test code = 5070665088) 125 mg/dL 70-110 H Lab Interpretation (test cod e = 05446-7) [facility]normal [facility] [id number] 21:53:44* Test Item Value Reference Range Interpretation Comme nts Case Report (test code = 4062491201) Surgical Pathology ?Case: [id number] ? Authorizing Provider: ?Berlin Sow MD ? Collected: ? 12/18/20226 ?Ordering Location: ? ? [facility] ? ? ?Received: ?12/18/20221916 ? [facility] Center ?Pathologist: ? Lindsay Paula MD ? Specimen: ? ?SMALL INTESTINE ? Final Diagnosis (test code = 7850115073) k4ymuZHvKPBij0gmPNSnlR FuZzEwMzNcZnRuYmpcdWMx YWvfkfPeGMqrrUloJJE7XD RnZR9yhEsvfPj9xMmaYSGg crW9sOAdVAzox3rwHUO1o1 ikapivDGVzHQjbPm9udOKp bVqxCdTuZVSjIBo4xA15NQ ViwH6seSYyFPy2XISdhJKd wiEyKpIrFEQlaGQwqPZ0WK DuXG1ipfmiHBqsIKbwKVRd xpJ4WKKyaHWiE4FsZJIdZM 1hiejqETS3JWncKSIfBQT4 BsDkNFRla3Mxxnk6FlHbbR FyZFxwbGFpblxmczIwXHBh ciBBLiBTTUFMTCBJTlRFU1 ZOBeStMJRLD99BTuRSAAMR KTBXI4BDT994PTYryyMxBE HvHI3nD5HHXAIKYNPRUjXO VHHJMIPSUiCII7VUWzUuF4 nJQLQGUjDJZ93CTkFWXAWP RkVDVCBBTkQgQUNVVEUgU0 WEC2SEVFcLYOnoHQCmAILa IPWeXPKFI6AXNZwPAvKXRF DBAR4NWRQCPIOVCSOZGUBj NNYkrbpxTGFuQZQaBG4wcW 4gQWJkdWxqYWJiYXIgSGFz ND5jEG5XLDVrSS7tDM8jSS DwHIO1ZbK4ABWXHUMaebte WUF7p0phcHVkMVEhhWWuWt VzPBAsWWZpw3kqAKWixBEu ZzEwMzNcZnRuYmpcdWMxXG XnOiRvk0qyy026mILyz2qi TVZfHyR5zGKiACBcyJiicg b1dMgfVlXcTIMno8mbbaBl ZmNoYXJzZXQwIEFyaWFsO3 29NQQmQQxmg6yfc8RfKMGt qLNdc5L9NSIGKVlvIqFhH3 91w2puw1wfaqCgrNG1YCIv JNG0MBlmmqVdrlI4ZSfqkM YoFrW3KRhacsSeEZrdinLc ueHwXzl8ZHGwM369IQP8lR fdb2jgCSD0QBSyLAJhJcpu Gj3fzMSyC660GXPsIZSPKY CexDi8TPJxykIidhNbrJYK u442C905c1zoECOukiQtsI oSsktrg5tuW452PUOsaAVq keTqBuNsMUHrbAHbqGP3RW PhUW2ctznfLHlxFBpjKCLj fmL8VGXudRLqS5IiFHHoVV 2fqaevEZT7EPwkRSGpJZB3 QvWzLNWoo7Nkhqq2FiUtdr 0blv43URJ0n4GnoUqvAQP4 GAS6TcOiSx3giAHxALOgYO 1dDtZkfTKoRXQgbl90fAyq APtkjhGtwR2lIkSpKWQmwQ OfZDJtCY0hsMHqADCttO9k cmxjXHBnYnJkcmhlYWRccG xaouOpJz1mhFpvZHB5GPwv V5qbrA5hBvN8DPemJ8jztZ 7mVZr7EUzebQY7EHUcjF8i MN3idwyef0fsYFwdRSbvHN LmbbX2etW9RPVpgJNjO0Nw kC5cBLIyNK9ojfjpo1ulQH U7REdtBHPuQAL5GzRvEGIh b1Fxkle3FyCev0IlmYHuBN rvQ44xo174PUHkquTlC5da bGFpblxwbGFpblxmMFxmcz D3GRCfZQTpESodYTGyRTVy MjBcbGFuZzEwMzNcaGljaF zhSWnkBlYnSWFvVQxiM9mh CbQvK2FgTFVcHwBksGQmWV ocmDS5SIPiMMKia40mgDm4 BRBdiaqws8KbBINypSErpC EfrR9jobUdn5kwJUIoNOCc EUBxE6UsVRV5uMMzQKDutL LdlKG1MR6jblYoMX0pELCq YnkgcmVzaWRlbnRzLCBmZW rec8txTR1xXQRjsAmtuV1d sMS0RDZql4sujWVpyYKar2 vlz9IienRiNUyhJLKwFOog UBMnBVYeJK3kKLEmrGBjkq Jff9V8LxnlfMXkcxuwUzmw ckT3LRxaavngGHNdGQeiU7 tjRdThBMEcuYtbJmmzh1Wr XGYyXGZzMjhccGFyfX0= Clinical Information (test code = 5693345971) ABDOMINAL PAIN Gross Description (test code = 8514710572) r2wzbZIiIGYmhCQjSXHpV7 euyoKwHNRqbHBsD9Gtktcz OZnpIU3vJC2mcEpiwTXwrH DaHTEiZtDxf0mzb321jDEq r1snEZOJmkxvoHh9jSyvI0 2xd3X5RmohZ38guFMtZNO4 ZWKqRFGloCQnJKLuJDF4SI JamRLfS9iaOMOyGX5cnuvw MQsjNWklVIJefQQ2JZXudK DhG6EbNUTwWVpwWMQfain4 JyNgVh2dgNDjxNpxIFzbJt einHjuo7IveDSzPUowPYLd ZBKnYKzhTADuM7HIZUGcXZ YnZTO0YTNjJZKHQRTjEBe0 MTMzIEVQVCAiICBaNTAyNT IxNSIgTFJSIDgwMDAwMDAw MDAgXFxuaCBcXHQgMSBcXG VzQNcrqmU5g2owGISrpMUt ELS8NLniiXGyJRNtRRTeLH nePmAHCqDhDwYeWHL2KGT7 FrPeALg5MQakG5QKFYMtGO V3AxI1NSq0IdX1XBd5UCWN Lk8qGDx9SSH7WQO2JkZ7QB k4VDFnSIMfXkJvCMWcGVVh GIvxhANcUF9mvWwvFHHiOS ByVKcnLMAoWdMcA1CJI4oP JM8fFHyvPNAciQPhAHvzZk JyDEFgtHHZp9NyXPlmxDLb blxmczIyIFNwZWNpbWVuIE QgqOKhdmPrUMk0DVYifN3u Zj9wpMLliU8dpCXjDPcrSJ Jrc7r2cXR3rINagUH7pDKm aYocLaXfCR1tkFAxAALHQP 51bWJlciBgYCBzbWFsbCBp gtBli5AeslOrM6W8FDarWA RkqxGiI76je5pqtJPsj3Jr UNLgmP0clNVpoB6wdueycd IxEKMfiFKgcIOpj2sedXZx ZNjaLS43XXe0DrQtT46dxX 4zkPLqL0AcSHP2BRRxYCMu bSBpbiBkaWFtZXRlcikuIC VYhKDho6Jhq9HoJYqmDA0b cmthYmxlIGZvciBhdHRhY2 ltIOS7SPcma7jqN0FoHN0r VDj0CXT7cWDuPR0fzWPtqG FsLiAgVGhlcmUgaXMgYSB0 syBnp058uxJuGUBwPnPqyF AuXR71SWEyMOwiVOrtLGV0 AIB9JHTpoVAvs0klcrrtDH YwZGWtnPEnvd9rMJJxL4ji h4ElrQriFPOlZGLuC9Ikn1 2aqJUuB4bbAUByPTInEFHo L99bPQBasC7gn5hmiFQ3ec Gsl304ffPtFMPfEnAedKbq Yn52WSArDDLgd30yWMRvzC EozANzuXLzFC2yrslvpo7c VGIpRBPtrDIvtS0xvwJyop ZvdXWeMTMguP4vchF0JHEo IYMvdGQ6OB49LWy8oTXkRG egzYfod7ZvklVxnKUpqI79 FXegUQPhYR8haZFvvBLeCg JxZApwPP42B87hHWJcgIQm d9YdZWqwMpV1zXTiCIXoSX I1zlAnwdInHD9ivsAcPPjf YyBhbmQgdGhlIHJlbWFpbm uhDnXtcXAek9StpYLohBLt PLnqwBprkrIdbeOxlL1hQK 1hcmthYmxlLiAgUmVwcmVz ZY38UXAtaeAxp9AepRpakx WcDEGlWZP0Wf8dxRErROFv xkZZCM1VVG2chWEeBRVivk VjaHStHPGlN4Pqv56tE22a ZTpccGFyIEExLUEyOiBCb3 SkSAJnu7HuRT10LJQdisFs NPP0zO9xPM0ldbipfgjbHX 5nYdKuPBetND09gORwbIrz cGFyIEEzOiBSZXByZXNlbn XuuTy6HZFbEzEek7TrOHSa HtIbtICybOWxHGS5SfQADD WwQTRyapHlyLx8LFWoCbXj hVGtw6IcsZSrZTLhyjEMbH smBEJFI8jciKLdTIlaJAET RBpZK5ESAYprGFNqm6MvWM mrpLipUYOhIrE4UZFifSFm ERH1DI2moIiiZCRwZ3CwK1 YchmQ0AGVllv9= Disclaimer (test code = 3577014825) s5pqgMAvKMCft7cnDZJcuT FuZzEwMzNcZnRuYmpcdWMx EKtlxlYaKLlnn1RvD7AnJv AwMFxhbnNpXGRlZmxhbmcx GHOaCPZ7mlIsKHQtTXtoVO WaKPoeDd6lmALjrTzjUnBf ULVmn4hnoaUOWCtpMzRpS4 59DGYgYUvbx2wjv0ZoEOTb wZBzf0V2XCPXnudegWv2iN laV92yz8H7BpetL6zkNSSv WFZxN5HxAC5fAPWyZet4DR R9KAS7KDZfEFXdV1SgQT1m CNQfaEXkHXn2q5lhsFzvJZ DmIIY5j2zmULnegbYzBW8v vi3fkCa9v3txwyEfUSYnOI QddSSGQDMnN7OaeXkwUr3r sOp9eKrqZzoqMKY3Nhb5KM 8gfs70nhq8ePnjHBHsrtuy IdR8UKjrIJRexsdeUIy3HA piPRHhwDA4RYSyzQIrA1Kh PGPpIZ0hxgq4WNH7ELboEK XdLjU3ALIitCAiTTOywMfl DJdgy632UHE5WdIiCQ6aS6 Jep1A2dZ2hwNOuQTWovYPx WwTvHYKhjx5hxTDwPPdeq4 ZhMHE7ldT2tKZijVCeUMRg IV76Grbpz3HvEdzhp4ZuV5 7zoZS0EBafl3lmWD1cLbB2 smDdWHufc0ocuX0tOnY8GW paRR6yFK7fRRMflD2fkaly XHBnYnJkcmhlYWRccGdicm WcBg2rxSkfKNQ3QRgtL2mx nZ7jIeR4NCyiP4mpkK1uCR d9SAlhpRX4LVYyyR6nDH2k uoyjm6bbINdtXOysRZLepp U0jyY1QYJzxYBzW0OnzI0b HALePD7cflprq3whARJ6FB rhAEApLCR2DdHbEBJty9Fd mfy0TbLei0NlsRNtCHkdC1 9qu569PNWjupCqI7etlKAm sdxcnCLuzwmkPYbtoxT6SK WuigDrr4EyZCByNBU6QOin MFqprPAdXNAleFpzb5xoK7 RscGFyXHBsYWluXGYxXGZz MjBcbGFuZzEwMzNcaGljaF kjBUyjHuWnOTSrJHdvR5vv LpVgL3MeBQEbQjRzmBFpN3 ggVGhpcyByZXBvcnQgbWF5 VMhnY6s0LAKbmjYlbKj3tf VrIeNlEYDhKVQ7MKutuZLe MWZmt9UxdnlarDPnJp5blE JkTJGelY8sJNXtNWUbUJhe JH2myUy5XOGKjLGpeYYlYe LPWQXkRW21hrYrMDMHrivl g4A1PIjcUKYrt1BhaBGyF4 luz4OsQLXem44rLO9ap9N8 s4ulOVY7TZ8se6RiDLXsvX SqlNOoSTMeg1Vnovmow8Mb ESRsysZbo2OgWBNwwzGspC FeTOYfjdDgac3rejAaOTSj GTZmP4QttkvrbEnxvdKzZX Hfxn2gvrUlODU7UVKBSEUi UULtv5XmzA8pcSDIOYL7rI Cuce4gkqJQuWEeFGAojg44 GCDrKR4aO3keBUMqKHVlas DkeKKck2OaCWYowTK0oDOv LW3AOhZQz30pTFTbCYCJpr GyDHNsfEawwES2xoE6vX7v IChGREEpLlx+IFRoZSBGRE LwJV9fhsXpq6PlhnIheGee JILjcFHug7GfgJMtj8EpxW fvy3QzvCGpmSMkCH2vOUEv clxwYXIgVVRNQiBMYWJvcm E1k2DkZTZyGHQnPZQ6pPrk jev6AZEghJ1nSQRwU8elzl ziZKnhFMOih3UrlI1srODC hJSeu2ZihLTyjUISlHBrUP 8qrnLbMGbABYgUZZJ8vfZs XQDzg4StBSxaP1zqN88qsC ryqMv8gNN6UQQ9sO7cZxr+ IFxwYXJccGFyIEFwcHJvcH BcSKMvlSmrwbEoO0TuotEw cG7vnWHspyZvRF3mEV4bS4 Z7bEPcCBUqwpVmz3xrYOrz dmUgYmVlbiByZXZpZXdlZC Cxv7IrUEqnHVE1IVexiwEi bmNsdWRpbmcgSCZFLCBTcG SehAUzZWY3JInmnxCmxpWh IH6giH9byMoubM8szFTxeV L2jtpcMYPzKNBivTdwTYCc CX3qxEgsyN3jLeWbRdRgPK flCN6wHLDsK7gghJZmATQk HDUvE0jzVyVfzJ3ocQpgSU xjZjJcZnMyMFxwYXJccGFy XHBsYWluXGYxXGZzMjBcbG FuZzEwMzNcaGljaFxmMVxk IpZfUNZpNSkiD4ohNmTsI0 ZnSGIyLhFkoNQoR0bpSToi KET1CRLgKL4haZPhQF97tU Mvp8ugMXxpiPsjoh6vC74l gMKgBVsaaAzvTPXig74sl8 OzZTGpudHals8pAJVuccS3 jM1hFDDzwXotJPLsaWXgPB Xsn2KoWUahkDRxuwMkRDjt OCOuKIFinCSqwyB3igZxzh FixeFcHARpbHgeDHKft2Vp JBWsFAhrp7Tuez4riMDfFH YxmlMEyMlwwXDygD4dZ6Rf ERWpXHIcwj8gEFWjoE5hGN zgl8SnatorTEZhBWOdDFNy pkKzgc7fDOOgzWMQJC0FRG yyfNMfe9PpuhKmY5cHMVK3 NUQwNjYwMjgxKSBleGNlcH BvDEAhqj56DSThhN8kqLni HKClhP1oaU8gpWzjdA9cFh HeRrQrRNxpPW6lYHZrQ2iy pMQmVVPyWSHqG7fxPvYakD 9jaFxmMVxjZjJcZnMyMFxw YXJ9fQ== Embedded Images (test code = [id number]) [facility] [id number] 21:53:44* Test Item Value Reference Range Interpretation Comme nts Case Report (test code = [id number]) Surgical Pathology ?Case: [id number] ? Authorizing Provider: ?Berlin Sow MD ? Collected: ? 12/18/2022 1626 ?Ordering Location: ? ? [facility] ? ? ?Received: ?12/18/2022 1917 ? [facility] ?Pathologist: ? Lindsay Paula MD ? Specimen: ? ?SMALL INTESTINE ? Final Diagnosis (test code = [id number]) [id number] FuZzEwMzNcZnRuYmpcdWMx VNzakkPmQPdirXmiOGA8JK XlRJ3gnGvcrIy3uGkdQKSe ixT7jXUaHPmaw3nrEXC6s7 rcarroJLNhRVuxHc2ozSHm sZdkHhWpSSAcYEw5bG06IU XkcF0idYQeIJw3LGPrsUDj imNuCyVlSDByhAIkkBP7MN KbQM9ivbhmAEsvOLjnCKPa aeH6EZYwlNZgO9OjWFCrDY 2yicavQQO5RZftSUFzPJO3 UxHgPQIbv8Qbtxy6BxKhvZ FyZFxwbGFpblxmczIwXHBh ciBBLiBTTUFMTCBJTlRFU1 XDSrNyUAWVX81VFdVVMJCK TLLIK8HVO214DPTalvObJH DuOU7cF8QMKPJVJUAYNpST CBVLIDZPYmCBV4JHBmQpJ4 rTKKWUPgDCN76VFvBKRARA RkVDVCBBTkQgQUNVVEUgU0 LTT0ZBRQhIHYesPTWrHKUj SIKeAJOLC4FELNcHVaXMEK PHBG3XRIEJDEMHDUBZOVXe DUYsawypBLOcPRKmZV7peP 4gQWJkdWxqYWJiYXIgSGFz HZ6vWQ3NORBgUL0qDM2tOR GsFHL8XjU2CXWNHJZqgjgo JVZ6o4eddKEcLQPgnDOgPm FoRWTwNGIao2ynEWUuuNXr ZzEwMzNcZnRuYmpcdWMxXG NeFrBmm6run456eZXei2ud KLYzTmT9rHCwRLTvuCqadb r6pZbgCsBjPWVer3tiohYc ZmNoYXJzZXQwIEFyaWFsO3 55WDLtMPniq7ycw9UhXJKn eBGev1Y8XIUBBCzmCcXgM1 41i9sgw3zhzlGjeTL1WKTo DAW0ISzilxXzktM0HWgvzA YmIoP0ZSznylHiUDmjtjHx aoFdSgf7VBNoQ108NHB0cO knn8bvBJR8HICzFLJqTtxq Em1biVXfL359PGCeXLLIXK CjeNb1AFCzygYxgdWsvOOK y720A187u4zzNGWjrbMymQ nKjwzst4keC578YGCncGSo ooNhZxNzNWOpyQHfgLB0WG RnPN6wnbjwZKztFGhjXIJm dnG3LZPczJZkI8NdXSFvBI 4cyekpGEO8JLbkFJDcJXE4 XaPlCBTpa6Kuvnc8NyXlge 0nlc64ZBA9m5SzpSesAFU0 HUS7NrKiKo8exSDjHUNlFJ 7bQsSumIGvTMGreg50yDxo PMarnwWbyV7oXhAzVAOyvH ZfFOBhJZ4baYDuYPAroX8t cmxjXHBnYnJkcmhlYWRccG lbifKtMw3nbLghVTX0ALup E2ftcJ9rMqV7VPvcC6fbrJ 4gHQg3WIzyfQY1VLZaxZ4x QZ0jvmbus5kuWDisXGpaOL UungW7oqX3DZVrvSJtV9Pa yO1gHNWiAC8yzmrel1qbHE V2PVtsZGGtKRT9SzHaKMBd g8Gdhwc2FoTee9PijICfCF xiI11qq783YZRrdyWuM5er bGFpblxwbGFpblxmMFxmcz H0YGMeHUZtJBaiPGQvMPHl MjBcbGFuZzEwMzNcaGljaF yhNFzjAtWiFRDlQLzpJ8yb QmEaI7OeRTSdMaTxuJFqBW gpgTV3LQUfFNAdw71fmKh7 SPGbfhgkf1GoKMFpnCTxdD JbfY5pzwWae6qcOHUgUYXi YZDcR3AiQDL1wGBtDBRzcF XloER8JT1xgeCsJW1rPZZg YnkgcmVzaWRlbnRzLCBmZW ggv3mpBG2dGNOpzAhomB5z sZZ4GSOrn4cgfOWhtDFdc5 eli4XhsyEuQNzoRFQrAFvl RCGvKTHhMW5wYAYjoQLjym Jvt7O5VulbkCEktoryDrvp mcT0LSqihkmzNDJhWPomZ7 dsMwTbVMRwxMojXhxqk7Zs XGYyXGZzMjhccGFyfX0= Clinical Information (test code = [id number]) ABDOMINAL PAIN Gross Description (test code = [id number]) q0ckpNAmLHWogWBbRUXhC9 ujpfYvJPKohAPhG6Eefwkp JVerNA0mGH9mwJjdcTXdyS SdMVVjZlMww6gvv073aCWy o1naJYWCrswyhMh3zSptY4 7xu9D8ZsynH65taEDyBWK5 SUVnCYHrjZExLVOaXZW1GX MntKWiK9vyQFUmNF5gvdpg QJgmOQsaGJGevUT3UQCewJ VrI9FmUTIeHKlaWMJixuq7 WgUmQz8ioBJwzEvpPZiwUe wwtZgmm1CzcSSgUXheRBDk RYEoBFafFRJzZ1QVRYKvBE OzXIZ4LAVgJCBWOFXdMLz1 MTMzIEVQVCAiICBaNTAyNT IxNSIgTFJSIDgwMDAwMDAw MDAgXFxuaCBcXHQgMSBcXG CmDLpibiU3w3dmCUWjrKOv IGT7HMceqAVoVLFpEVEnTJ bvJxQNYnNuZpVxCLF8XXP3 BcLkCAg3OHehF1ZAIWJwVM T6OnB1LUo7DeW7XHj7XDHN Cs0hODr1MTS0QQJ4QiH0VX z3LACvMFYnObVlIKSpCWJb EGyomOAiGP9boLezIDVtTA TgJRriKZNpJmZqT3FYB3jD KN3dXCyeCJNwlULuJItcAw MaWWRqsDKSo6OgHCgezSMf blxmczIyIFNwZWNpbWVuIE FdoZMllcCnPBn4QXLlmH6n Mx2gzVDsfK7yrWTeBHozPP Ygs3l7mMP4oNUurZG8tFYv lLowQnUgZU7zjOZmKKQCFP 51bWJlciBgYCBzbWFsbCBp enWcb1BudjLbS5R9UUayBX AwzyVfF81nq1flvHQpw5Mx IZLilD5ucLIrjM3jubhump NkEAWwsSDqnLSlc0dldTJt QTysDR80SLu5XlQeX68qyW 4pfIEkL6NhGKW8YFOfZJKi bSBpbiBkaWFtZXRlcikuIC BVgHQat5Oli8CyYAzoAA6w cmthYmxlIGZvciBhdHRhY2 bpZJA5LAiwb4ptM5XyBG6j MDt5WTH9gMElQE9ecKKweI FsLiAgVGhlcmUgaXMgYSB0 gbWow907iaZqYZHvYrMtfE HlNH28AIFfIFhyMMpqXDF5 NRE8PFMqtUHmm0olevdlQL IyIHBofUAugr3zBOBdU7bh j6ZszZmlVGVuQPDrI9Rts4 7vzLKjB2udQFThBDToBTEb C34cCBPjmN6tz0wwiBK5rk Kbn615vgNvSCCuXlWhgEqs Mo18BUCdFJAxh59pHGRlfP PmjNXgjDLwPB4bsjxzsd4v BMUjZGNdaTXzlU1ibuMhkq JexPDrRRUbzW2wleB0WBJt EEHjqKZ0HE99RKr4iCUuMF mkkNyzu3UzuvGclJMeeJ53 CCvxQGNqJT3ogBXvcEHxVy TxPRhqTJ54J90mKLKfnOIv n6XrITbqMaE5wWBcIXJrZJ R4eqVyeiLsLM3gweXoKCwf YyBhbmQgdGhlIHJlbWFpbm unDjRbuKIer0NwiBOzpDWf VIdkaYmanmOiirZohK9oEZ 1hcmthYmxlLiAgUmVwcmVz ZT94FZFwhpWaa4TuqMvswy YiOYOoWGP1Ac7qkSHgXNOq eiGNKE9FTB2mfFSnWAFrof AvsJThLIXmA5Tir99cO96c ZTpccGFyIEExLUEyOiBCb3 ZuDAYhn6QfQU24NHIsdjXz NOA3mE1eJQ6dophliomhRA 7zZbMtMQhfIJ44kVVfhUwg cGFyIEEzOiBSZXByZXNlbn LmzGp7IBAfZfCpl4UkFXUp XuBbtGMbsLEmHHU6CmQZPO SrXIEkreQwjNr1XSHbQbZm nHZcr9RwuNTjKBWzaaTSpP urBOTDY9rtvETuNAvqFNVZ NRcFR6EWSSsbYAEqe4MhZY agaGtdRSTwGiX2UTZpaVRe AHJ1TJ6diUlhVKCyR7GrM2 FwqiC9SOFsft9= Disclaimer (test code = [id number]) i4onfUCnDGGdx8ysTAAnuB FuZzEwMzNcZnRuYmpcdWMx VChwlyGoQJiep6IiP0YlQd AwMFxhbnNpXGRlZmxhbmcx MILxZKV7bzXrJZWfNRaxXO OiYFqvHe2utJZubNdpWrIl RPIik8slidAEBQmgKoYgJ8 86DYKmJJban1mqk4ZlPFWh kXDtk5E0OPYPbpmrsZt2yA pyA87vx2D9EozzX5dpSYGh FUNiZ6MaDI9sREFgTdk2SK H4QJI3ARJuCVFeE6ZeQE5r MKTfzHZzAGf5j4gzkRkcJI VgLST5v6tlJHynyoBsLU5x jv4umVp3y9fuzkUtNDQzCN TabTZUPJGfL3YyxUijYa5b tZi4hPlzZsqyHBB3Vzg9FB 3kjl61zjp1qDptUMSiwlst PjX8EJufWJNqurpaSNm9AJ efYAYmeJP9CJMejJUdI8Wk ECEuKZ5kfww6EZF1SPkhEZ AsXkD3QZUglCGtDXDhkUbl QBmot425UJO0MuDxPD0jQ1 Ova1W8oC8jcYOyBSIajREd CzNhSULrpg8dhASjQZgep9 DyDTM1goL8rXKhoVRaOXBg TC39Yivvr3GdLeabh8HwO2 1ikLB1TTgrc7mdJV5sLdY6 yoZhNCjna6wwcG5mYxY4ZL cqNT5uXM2zKGTnfO1qpasc XHBnYnJkcmhlYWRccGdicm BaZb4yaDjfUUY5PXxjH1xi qO0uVuC6HOiqV9gvxF4rPU m0KYurpJR4KYSscL2oUY1e vmvij5ceWXgtTMxhDLQihs U5mpJ8VFOgoWIyW2LgyF6q XWDtHX2kuptpc8mxOEO6QF vnJDWnRWW9IaUeATMal3Wf pqb2KfAtg3AfeJArEIhmS6 0gv216WQDtmuTdV2pqiHWd ehsyvLBfrqpbUDvootU5CT FvveErc7BkYWSgHCF0LKsh JYgrnBJmPTSjmYnis9omJ8 RscGFyXHBsYWluXGYxXGZz MjBcbGFuZzEwMzNcaGljaF ttBUviCtNaVMRdXTrgB2fk XrXeY5JiJXJlXyMheDRoQ4 ggVGhpcyByZXBvcnQgbWF5 HAxuB8k4XBFcrzNncWx3by ZjBeQwUIMqHWU3ZRjoqKMh OYFrb9BevsvjnLCwXv1whN OcULCthU1vKKCpHBWxQFtl HX0xxKj0KDEVwWRkfJIvRg SHNIVoUI57ltAdMKNRcqtj j3M7QSogYOJhk4QknANpM0 czm2FiFVDff58cWP4lb6F5 b0miUPM0OE9cf1TlRYFejI WiyMHvSPJoa9Plrrjhw2Lx DHShueFve7CcSCNtyoDsbK IvLEAfhmCucc9xiuIfJXLn CUAxO9NynfmlmJmbpwMhXZ Xpyh8npaEpBEP1WTEYYMQm UZYqu7QkmP6zlRFIMKC4fJ Ftqe7sblTMrKUrYJXqqy36 JNAcZC3yH1lqVYTbJDXbqj IfvWCpx8XyTQSetDM3gFZh BW8CPxZJx64nSMPwQJXXri NkLJPpbPlukIB1etK4pG5e IChGREEpLlx+IFRoZSBGRE ZfXA3detFtx3OxwpLycTge NLCmiPGlm4MycRSzq2DeaC uqi2FypGBunJLhAD5mZFSv clxwYXIgVVRNQiBMYWJvcm D8q8JfFZNxYJDoREM2hHpq ehi6WXGjbT3oYXNrP1nexn pgPOujMABwx7QvdA1rvXHH nQOkg2PgwBJcvVEOvUNrGT 7ittQuDJxQKUtTLUU0jqZj MTEfa9AnLBsjZ4qeX12qvO owsNz6tBJ8QJP1vB8bUtg+ IFxwYXJccGFyIEFwcHJvcH XzCWUpsVfvxuAqO3KbbeRj lJ2zuNSjxiEoER6cMQ1qX8 J0nPZsUWTdoqKxf7bqNGdg dmUgYmVlbiByZXZpZXdlZC Dym6WjTZqlPAH3VAueaxZo bmNsdWRpbmcgSCZFLCBTcG HueLHqWIB4BYygirFfgsRn DK9fjI5obKgwlX1lfFXrdE Y1tozyLUNhXRJamRthYIZp OJ5zcGeqeS7lRqJlYmCvDS xbVA8fRAOjO7gorORxFRQo CTZxW6opWlGsqQ8feWheCI xjZjJcZnMyMFxwYXJccGFy XHBsYWluXGYxXGZzMjBcbG FuZzEwMzNcaGljaFxmMVxk DfDfIKZzOGvvF4exDxDeC7 IhIZFmYtBraHUlW2upYBzn GXB0DHPlDE5jkAOtJS47hW Hqv6htNMrjnFvkso7tX98c lCNjGIhynJdjEPJzj13nq6 NjRDVuwqNviv2gAOGthfZ3 qM5kRPLajEgfJJHssSClOI Ppi1WdZWkxwCPgfuToUCmy YUTyGPDwvDSyohM9idMtru PzfpHrYDBubHlbKNLus1Vp LEXmVJdnl7Xuyl3ezCTwDF LndzGNzMjyaGIueV5iD9Av ROBwGUMcil2bYNJfxX7cRE cue4UbgwosFTTwJKCiCJTw zeXasl0bYSIluNEPAE5ZMY zqpSGfp3RuymTaU7aYTVR6 NUQwNjYwMjgxKSBleGNlcH DmMFOpcz57YQIjqD1wyCwx RTPunR7kuX7bmPnnlX7wRb YzUlUjEEweEZ3pZCPbH7dh xOAvJTNfXLEbU7eiGfBefA 9jaFxmMVxjZjJcZnMyMFxw YXJ9fQ== Embedded Images (test code = 3110116398) [facility] GLUCOSE (AUTOMATED)2022-12-22 14:05:38* Test Item Value Reference Range Interpretation Comme nts POCT GLU (test code = 9747053353) 127 mg/dL 70-110 H Lab Interpretation (test cod e = 62720-4) Abnormal [facility] GLUCOSE (AUTOMATED)2022-12-22 13:24:47* Test Item Value Reference Range Interpretation Comme nts POCT GLU (test code = 1397191551) 134 mg/dL 70-110 H Lab Interpretation (test cod e = 46708-8) [facility] Packed RBC (in units), 1 Units 2022-12-21 18:23:21* Test Item Value Reference Range Interpretation Comme nts Cross Match Result (test code = 4409) Compatible ISBT Blood Type Code (test code = 263413) 6200 Unit Blood Type (test code = 4410) A Pos Unit Number (test code = 4411) [id number] Blood Expiration Date & Time (test code = 978140) [id number] Status Information (test code = 4412) Issued Product Identification (test code = 4413) Red Blood Cells Product Code (test code = 4414) [id number] Performed at [facility] B Laboratory Services - [facility] Blood [address] [place] [phone] Free: [phone] No. [id number] [facility] [id number] 16:46:23* Test Item Value Reference Range Interpretation Comme [facility] Case Report (test code = 2801102513) Surgical Pathology ?Case: [id number] ? Authorizing Provider: ?Rhona Lau MD ?Collected: ? 12/16/2022 0910 ?Ordering Location: ? ? [facility] ? ? ?Received: ?12/16/2022 1743 ? Surgical Center ?Pathologist: ? Maryann Lee MD ?Specimen: ? ?UTERUS W/BILATERAL FALLOPIAN TUBES, uterus, cervix, and bilateral fallopian tubes ? ? Final Diagnosis (test code = 7432915243) [id number] FuZzEwMzNcZnRuYmpcdWMx FOfepfWnHFbjlJysNGL5BC TrJA4fqMjwhMc1xDkzUCBa heE3hQSrCGcra2wzYCG3q8 ovbvmjKYPoZHroPl7ibRCm qMofGxCoIPDgLOa6oO90LH TegT2bjJAxLHb8UFIxyBPn xiCkPbVuSRHojIIlkXF5GT LaQY8fduhkJNyfSDrfJKZm qmQ8UDGlsHLcP6HkHNOdHJ 3cwdaoQKI1COeaHFQxMLD0 TmNaMLClf4Tuibi1ZlEfsK FyZFxwbGFpblxmczIwXHBh ciBBLiBVVEVSVVMsIENFUl KNQEQEDgZcAfXFAF2ZMVJM IFRVQkVTLCBSSUdIVCBBTk MaACRRMMtoEFGGFQLKA7ME SBhNOXXUNp2VZVYpOCWUMK XVMLNaYV8GBTcyKKdHZWWE YURIK32KKDKYNHETHFyRSK ILPPrzV1FSHUyWB7WVHD7D QCkaHYSkghWrHNYtBX3tK8 RQRgeMTgNPMlOZSFZUJ0rZ G9dFKBCGDB6ZNGCbtXDuVR AgICAgLSBFTkRPTUVUUklV TTogREVDSURVQUxJWkVEIF WQIn1EMERGA52LPPPJGS3I BHfBZYmlTOoHR8HLG3QJWE VBO0oZA3LWBcEDIaHUL3Yl oGPuMOSaCQHrDIWIBP7PSP OBIFZGMuZQIYDCX60FZ3DG NcLENlWeKPQMK02NW48HDI WkcpizzZy2QYdmiY51CYUm ICAgICAtIEZBTExPUElBTi BUVUJFUywgQklMQVRFUkFM CiNILyUBVOMEZ6cWC3bXHZ JNML0QDEQarAQaWUVwllZx cGFyXGZzMjIgTGluZHNheS WJwRgnVA4bJFIDJYIusdat ekWtXCQvqq21FEQ5CvNle0 X1FCFtPiSiEQWuUR3zzXgo JKVpEE1lWLBzA6unpO5dvv j7QwPeRYYhIpX9ONFjvtT6 Nsh8FFDrWAakn8fha8FwQ7 JfnDLemGr1b7laSEZnUgO7 hFVaDBdoE3wuwcZsqMJbJO KcHQg8aBhmLlSkYSOii0xi cyBcZmNoYXJzZXQwIENhbG eiucm1iY85DKXprI0njYBl UZszzzDeSgS4XDimEBNeHt G6XHXvzZXcOXZyZ3ylIKOb QUwtCBBmVFjftJUiMJP4nG nml6Q2gOUxsMIemYsiZxYx QbEwZIZUj8WrQRb1fTaaX2 QwNKLuCoM2lGEpXIJjVGjr ZTOiEWTeniM8lC33WCvcuy A0sVNmg6Brd77ep181dG3t sGSlWTW6FNJmBAYfnHSeHT WlKLV2OGGltDYqW5dxOMCz DM8zlqmuIGecEBhnJAZpxJ C1VUDtvHNuW5CwCLNiHQit GADhvat0TgSoPy4goPGcyF ymAIjor0rsq5bltHYpHeg4 ZPMfBiIpRigyBMrwp9Dfp3 pmGRCgmy0kKWL1sHXocRsg v4O0bIFuCTVllRMfzwCsNN ClKtV8XEvzZN3tcw75MFDc QBD1aj1yeTMjxDrlbmDtbW KaYUbwM2QuYRBnr349PCYk F1ClQZGvx9F9ocWjMkMgLX IsaCI7dhJ2NEYiMJw9tDCa ttD9keSrbXDaW1vskW0rWR HmSE2zbltmz4veSMibUMrs LWHlgVZ3ohL6FOFvpRYuQ7 TjoX0cMVReUTigDYSngyf8 LoMfRu4nkOPyuGpgZSgzHv twYWdlXHBnbmNvbnRccGdu ZGVjXHBsYWluXHBsYWluXG ReHLZaJnAefQdykUtmsS8s PvEzLpAjQFeoSS7kCLPkK6 agdOLaGYVxCWWxH8rdNmKo sL2hcMbeVBrbCmBcHsQgND xwYXIgSSBoYXZlIHBlcnNv kzEehZvhjyG4oQM8HOGyNL esTIIwTYXqcBHyoy8ecMan JREaOJ6yBROqyzRwVWhhyF tvAPbyGXC9HPDtsCLqhCWq bWFkZSBieSByZXNpZGVudH JbYUYrfYqjm7Ymc8ManEP5 dN7sx6zkb3YiBODhfCY8KH 23onH2iB5jLGAfYQ6wAQQz AE5lxESyhACxOTPkv57peL hpcyByZXBvcnQuXHBsYWlu XGYyXGZzMjhcbGFuZzEwMz NcaGljaFxmMlxkYmNoXGYy WRokE5hbUkPdCiFcZKpuDB J9fQ== Clinical Information (test code = 5160476361) Pelvic pain, adenomyosis Gross Description (test code = 8643303090) q1rmnOGoNTCvbDWYQVE8IU QaGV9sfIosoIy0lVvvESXx crM3dSAlHElog4wrDNF6b5 zhjuKLHwzbULEyEF5aRVzo PEKhWF2nYqIoUPYkGaQoMT BhcGVydzEyMjQwXHBhcGVy jSN8LRQeRM9xvgtiBKhjLR rrBYDlpbD6UDSraIYvJ9De OECwMF2qfcswPUE4UXFNUk zrXj7soLPyhRdgWaUlWoFa YXJzZXQwXGZuaWwgQXJpYW p6dU0TKirePUJ6GARQQqcm LcxloNxdm5ZvaCZiAEMkUU xcaWQgNTEwMDAgXFxkYiBP FiSrPmBpZTK8GtNtQTDtWK h2EJjxLoWTLYA9CTC7XvOm EZa8MXghXYdliULbUEMmFR LgUBTeUSqnsoO2d0toOMJi pYGdWLM8JKgof4zzPGpfCE F9EYFcBiFuXIAkIH9HTyTu PJRdQCP1XtE8TvE3FKw8BP RWSeSiGyDaZyFrKWI8Laln YEn8VOj6QUhBIeVlDZTxNR lbGzQ2BBK8IcKdHTngdOMx ROwfb4EiNrIrRZCiPAatkb J0MKOvdoDdNSssyEnffJ7d ZaYwGTQKRXXYZD7XCdEFTJ f9psTyRDRzXiNssLOdVX9H MBXxnpQbTOvpvJfngV6itL VlT2axZbXtKxnyeXvgPqUd dERvYzEgDQpcbHRycGFyIA 3VE4WeY4cgRR1wBBAugrPf ZXIomMQrIQCkinXsp4CrDU xpbiBsYWJlbGVkIHdpdGgg gXA8wHOsxMiwImMdJP7oiT KbCNZDDY46hKLcqvigQTEd gYJbcoLvUHAjIKB6dSwpTS FuZCBiaWxhdGVyYWwgZmFs oA8mpOKrKHM1CfFsVCnDEI vsQiLjLT1rYPCrphKlv7Hr RW5vTZPamLYxXEGrdxzbwN SmliRqVHcrePehULF4SQOa PCHgN5Bbwdh3PCc5CdMmoW U9QfCesSI9GiFiZ88dXVw9 POfhNL5rKPR7kFBlJEI7vX DdqJRyYBOtyOK8LWFqzCJu xB3peeaaeNIwSNPgcGyjuF zdjgD8lJVxnxHnqiivcTVv QD5oOUBdBWehFEzvsmp0zE LphTAtJkTrI00bMWbngSK9 ZXIsIGxlZnQgLTUuMCBjbS QfprGuQX8thUtnZavkEZ9f HJCsCRxkIMVzQZ6udVMoBL 7bZEBePAKyOTDnt6IyEIU7 lpOgE9HasDMqgVOcBVFcuo hbRW4pOXYzn771vF3zYVbk FANpgZ7rYEN5eIucUAWyON BjbSBpbiBkaWFtZXRlcikg rAHsmIZkLGTmioboWR0aJY fvx2ZdpFdodO1bQR7rgrlq LrfyPJjzoNrmBISfJM52ou TheSljpI2hWRVrDHDcmcIg EV0qYQypCeEiU09gF42dbA 0ozUBoS1FmSZ2fOSqtSWYe SV8kMEM8oSNndZFhYG8hxR TvLr02IRNwETxtNHmwotm0 aCkgaXMgdGFuLXBpbmsuIF PaMOHqoaGurHX9pajzmKEd YXZpdHkgKGFwcHJveGltYX OjwHazYJ7nTZrzTy9eFZPv CDUteuRqbZ9iSRJ8yYZrHN OgheukaHNnWNp2h4ehDD4i r52usCFivZ8flCIpz3SboX 0qRDZwTUFfnJIsbdE4rSef h50tm3VbBEWGqCVokFpsqP O9tpf9rBCwHX33KSUsJICi vKDjxT9fRINxtVWbqnFoqx zhRX77LRMiFCSxl9Tluuvf zaH5yLmav12mw8ExRSzqCP Yckd1wtK7jMVUwVVWpFCKg YWxzIGEgdGFuLXdoaXRlIH cwjWPoKGNyiH24yxNgtMWu gFYny0U9aFUfWMVuKRDgyP XsofVafDXgxTHkkO9tiwPw d96hXAftCCRxAFYhs4I4KO Soa6TejWZpqgWzSeLqOFMd zQC8dMJiKUntONNrqqdiaA s2NCPrJ7Jjo74oZZS3vlUb ZXZlYWwgdGFuLXBpbmsgY3 D6BSV8beQtD8MeRXrsqQtu DCCndC0eq5xqqHNemG6ezm 3mPZIzxXQhw0CowMA6fJVr KDZeD5Deg44tCVVmWLKbfX PoyOD6MJOupC1pMVKqGJtt XHBhciANClxwYXIgDQpJbm xkF49wQZxkkFIoGJ4KWda7 BERfUIOggAKzdS4kZEUbwH EwcrKgXPNpl4Lpkhcnoynv BHJnWClzfWWiDO9PV6HfpF bbbbIkq7McKxufVHRdKPpQ NObwLQ58RMZmw2JiOII3r8 VckwIupVT3vsEmkeDwN5Dd boffNQziC3GgUPjeHVRmzN Nhr0EvqCS2yOMyTBEqQOqv CAZiELhVBywuNI4cuBOagL 9vWHBvfD0fTQH4kOjphI6e JW6cb0WdawLjF6RyOOZxpw FsLCByZXByZXNlbnRhdGl2 QJjbQNBfNUuMAg9WIYplFB 09ZJDrc4UbEA9nb746g06n qMZzvE6nTPJ1rAnlhOguJ4 tuZXNzLCByZXByZXNlbnRh pXm2OXhwWRHvWJsNJIAgZJ H2DUZcd5MjlepyxmOmybIe lQidrPG4kly6dNssLbVhyO 64mFjhe38sr8VuUFKtnWRy f4TxrDW9gMZaUMEuvsXLLg X6WsUQnGvvbIUeiQ0rogdu uQQsBNIauOfpaPaxwbQ8nQ JlLCByZXByZXNlbnRhdGl2 QLAkbk6cqh5hZNO2sV0gfi PxuuZgAR76yTPjOYTjm6Vx dGVkIGZpbWJyaWFccGFyIA 5MSFr3NAgpSbZjLfhkUrYl XDVnUQMyTGoxc3ZtYY8xyZ AkNKaceoNpzeXyRK15FGOh xaLdd9ThzNginfF7dLJjIC 64cNRmNIHcn7DhuASoAKIb uEZinDPruWStIR4TCKJrcb IZEfslMBKyCGHewWQIx8Ub LAVCLos9uRkeOM3sGMuiST 1gxFsbXBXfYGGCT7EaBTtp QTJjK04wa5ENh3Bia5yipI xhk9DsiNFaUJ00CHWsmLWo TXO2XG6azKssIDOrJEtyeD FyZCANCn0= Disclaimer (test code = 7600374305) u3xejDNaXNOvq1ugFHXhjI FuZzEwMzNcZnRuYmpcdWMx DYgnlcGdHAzyk5NfJ6UtUg AwMFxhbnNpXGRlZmxhbmcx ERKmEHI7dlSzDECjSHzzGQ OxRInpSc8rqIGlvWdgDlDd CMNks3mykkHYTKdjMxWaF5 77STCvIOmtz3sie5OuCYZt dDYxk4M1NUMOcmyzgOd3yQ qhL76qu2E0PsvhD4ytZNEv GYCfY8KkUS5bNREyZpt1NA B8AGE0NLKeMFJpX7VwQC4o SLLymVZfNRs2j6namQpaRE KzROX9x8guNFmyvoUgRC1i ru6ueJe3c6vzjvZoPVAhOW NriOGRRZWaM1WbbFqmPw7u xNp3qUzoOdtsKRK2Yoj2JW 3qum88ftn9oIfwCOYbgbqi WkO7WTniTPSqgqkwEEe2XF foYPRwoGU2DECtzLNrM0Yk XFTrWL8gfwd3UVL4ANefYD KmEiH0UGDftXIdDVJmxDsi WPgnc444HMB9UyMuGE0hN6 Vyw6R7sW3ubXZlEIPaxSJa WrWwBBXedg8gwBSiFTbri1 PvNNX1vyX6iAHitUSbHXMh XV91Hhvtl2LnZvrvj1AnN1 7tgHJ3ABuxt7ftNV3qXaX6 bxRmUYkxu2sakW0cPbQ1DN rzSX1kLG9wWZZwdR6dlqmc XHBnYnJkcmhlYWRccGdicm OzZc7rnSomKDK5YZfdC3nj tO9zXzZ0ZGrfX5scjM3xGR x2XVzhiZU1DGRqeA9fTO8w bxzlb8esRAewBMwmSOOllw G5bqK1YMEziQYqE8WkmM0c LWSiMB2wdncut4xxDDP2MJ qpENHfFCI3AuMfZTXjr6Yf kzl4NyCbd5LotKIwZZboU6 4yb800GTRrfkRdF5eblTZi gpiwcXIcxzmbNHrtxnN4ID DmcjNts9TbROAkLWR8KRzd PSmvdYWsMFSqvZuop1fxL6 RscGFyXHBsYWluXGYxXGZz MjBcbGFuZzEwMzNcaGljaF haMFtlDoMwCWBgFWacM8mq OoWvN0ZrMWYiReSazLYrD1 ggVGhpcyByZXBvcnQgbWF5 LElsJ2y8UONrpqAqoDy3tz BpZcJsFTRcSDS1JAfzeQYj WUJxw1VcfsukyEDlAf4wzX WgWTGyhF8zPHZgDCXsIHbm FI9tsRo3HPIPxIKqjDMxYg DLHHVuXE26bgPaODCXculs s0X7SEwjYMNhw0XnaQMsF5 zqm2GkLJDvl59jBI9tv0D9 p3fpQRK6GZ9gm1YeMXYvzF DfeTWkFNCyd2Vajkfzl6He ZLWfahEij0FzCPCmsuKvsE XwRWWuykKtdz6pmhKoKDYv CQNtA9QnzdeztNmxanMcOI Erdw8jeaCkLAA0GPIZPRFn NHOfg6VcoT0jzQMFVHF9cR Ferv4ojcIBpBSmQZRcqo00 ZCWcCQ1oF1tcYCWzFEKeuv FjvOKuz5VnFUCxoRN0nXJo OG3MYqAFr05lNPAcQMNMjp BuQTXqmFxqaIO3vgC1fU3r IChGREEpLlx+IFRoZSBGRE ZmEA1szxHmk1HqnvUeuDii DULwwSOah1ExiVWvt2DjkF upd9JloMKerDByXE1jWRPp clxwYXIgVVRNQiBMYWJvcm O8u6PqACUdXTSyRSH7kXxw rcr0PYZlsZ3oEBUbP9mqmz atCHblVWUqc0HwwG9ytRZB oQGdj1DpcUHnqRHMsIOfNW 8wcuLfZZfAVRdCOZO5yuYf PHIxb7PaSChrZ5cfP86opK rofHm6rOA9HQD3iK9gHga+ IFxwYXJccGFyIEFwcHJvcH QdNRXfeIyjkdOuT0DbapZs wB3lvLRhiaLfIZ6tGG0zL8 X1dPLoGINstjTng6ycWCdn dmUgYmVlbiByZXZpZXdlZC Gtc7TfKMieGME9CMhzuoWy bmNsdWRpbmcgSCZFLCBTcG GneHRvRNK3LBmnhbOtwuUu OP0vkW3luDepxP2jfKWxyA P4yfqgBVUxZRObhQswGDMp CD9crRljlN6bJtUxPkZvRL teYO5tNTToF5vzmESzCNLp NACuC0swEiZjpR6fuFtsIR xjZjJcZnMyMFxwYXJccGFy XHBsYWluXGYxXGZzMjBcbG FuZzEwMzNcaGljaFxmMVxk MgCwQWAmRAcsJ7jwQfGcG6 UfUKUgQqRqhAWgU6dsGWzz LUE8RIVfYQ5jmNZaZI27tS Eza4xiYDqbnRegay1qJ90n dDEqYUwuoMazYWUue18gm2 UpKDTxqvKyie9oUGBhrrM3 uI1jVCNjiTyhXWXyeXSdSC Zuz8EkASyezYQnthVaGEmi YWFmZGRsbOScnfL1kmUdzu JwmtKpVRYomOcyQRTzp3Ne GCFjVOsoc7Awqb1vyFIiTO GwzuLNpNqakRKfoL5qR4Uq OZMjQLGyqm5aKEQryC1pJN xjv2OclhlnZTGbLRJiCSQd heSgye6xRGAyyAHOHI6TZS kdqFRlh5QxgiMdC2dLHSZ4 NUQwNjYwMjgxKSBleGNlcH DnQFIoju73UXTkaK5rpQpn VZEpgM9xcU6pmHuxdS9qLm YqRiZnHKdjFU8kAUFkJ2xx qWYjSAJwAGZdR6smRnKkbD 9jaFxmMVxjZjJcZnMyMFxw YXJ9fQ== Embedded Images (test code = 8763643202) [facility] [id number] 15:19:54* Test Item Value Reference Range Interpretation Comme nts Blood Culture-Aerobic (test code = 63932-7) Culture positive. See Blood Culture Workup for additional information. 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 See Blood Culture Workup for additional information. No growth AA Previous preliminary verified result was Culture In Progress on 12/18/2022 at 1801 SECURITY SYSTEM ADMINISTRATOR Lab Interpretation (test code = 75102-5) Abnormal [facility] GLUCOSE (AUTOMATED)2022-12-21 13:42:29* Test Item Value Reference Range Interpretation Comme nts POCT GLU (test code = 3937221269) 137 mg/dL 70-110 H Lab Interpretation (test cod e = 53964-6) Abnormal [facility] GLUCOSE (AUTOMATED)2022-12-21 02:08:25* Test Item Value Reference Range Interpretation Comme nts POCT GLU (test code = 5908242219) 152 mg/dL 70-110 H Lab Interpretation (test cod e = 09787-9) Abnormal [facility] GLUCOSE (AUTOMATED)2022-12-20 14:07:45* Test Item Value Reference Range Interpretation Comme nts POCT GLU (test code = 1390729402) 74 mg/dL 70-110 Lab Interpretation (test cod e = 43467-0) Normal [facility] GLUCOSE (AUTOMATED)2022-12-20 14:07:45* Test Item Value Reference Range Interpretation Comme nts POCT GLU (test code = 4758715340) 74 mg/dL 70-110 Lab Interpretation (test cod e = 09911-8) Normal [facility] NEGATIVE BLOOD PATHOGENS DNA [id number] 20:45:25* Test Item Value Reference Range Interpretation Comme nts Gram Negative Blood Path by DNA Comm-Anaerobic (test code = 79600-4) No organisms included in the Blood DNA Probe test panel were detected. Further identification workup to be performed by culture testing methods. JEANINE (test code = JEANINE) See blood culture result for additional information. ?Testing included eight identification and six resistance marker targets. [facility] NEGATIVE BLOOD PATHOGENS DNA [id number] 20:45:25* Test Item Value Reference Range Interpretation Comme nts Gram Negative Blood Path by DNA Comm-Anaerobic (test code = 87709-3) No organisms included in the Blood DNA Probe test panel were detected. Further identification workup to be performed by culture testing methods. JEANINE (test code = JEANINE) See blood culture result for additional information. ?Testing included eight identification and six resistance marker targets. [facility] NEGATIVE BLOOD PATHOGENS DNA [id number] 20:45:25* Test Item Value Reference Range Interpretation Comme nts Gram Negative Blood Path by DNA Comm-Anaerobic (test code = 42616-1) No organisms included in the Blood DNA Probe test panel were detected. Further identification workup to be performed by culture testing methods. JEANINE (test code = JEANINE) See blood culture result for additional information. ?Testing included eight identification and six resistance marker targets. [facility] Lactic [id number] 10:31:21* Test Item Value Reference Range Interpretation Comme nts PH (test code = 2) 7.43 7.35-7.45 PCO2 (test code = 2422813194) 30 See_Comment L [Automated messa ge] The system which generated this result transmitted reference range: 35 - 45 mmHg. The reference range was not used to interpret this result as normal/abnormal. PO2 (test code = 6765556451) 118 See_Comment H [Automated messa ge] The system which generated this result transmitted reference range: 80 - 100 mmHg. The reference range was not used to interpret this result as normal/abnormal. HCO3 (test code = 7561250847) 20 See_Comment L [Automated messa ge] The system which generated this result transmitted reference range: 22 - 26 mEq/L. The reference range was not used to interpret this result as normal/abnormal. BE (test code = 0819045454) -3.7 See_Comment L [Automated messa ge] The system which generated this result transmitted reference range: -3.0 - 3.0 mEq/L. The reference range was not used to interpret this result as normal/abnormal. THB (test code = 3571113903) 9.8 g/dL 12.0-16.0 L %O2HB (test code = 8512065278) 97.8 % 94.0-99.0 %COHB ART (test code = 0634746784) 0.1 % 0.0-1.5 %METHB ART (test code = 4229814306) 0.1 % 0.4-1.5 L VOL%O2 ART (test code = 3384262543) 13.7 % 15.0-23.0 L NA (test code = 0315405660) 132 mmol/L 135-145 L K+ (test code = 8308307702) 3.9 mmol/L 3.5-5.0 AC CA IONZ (test code = 3958948401) 5.00 mg/dL 4.50-5.30 GLUCOSE (test code = 5572103687) 70 mg/dL 70-110 LACTIC ACID (test code = 9571926295) 1.98 mmol/L 0.50-2.20 Lab Interpretation (test code = 80507-2) [facility] Lactic [id number] 10:31:21* Test Item Value Reference Range Interpretation Comme nts PH (test code = 2) 7.43 7.35-7.45 PCO2 (test code = 6608343401) 30 See_Comment L [Automated messa ge] The system which generated this result transmitted reference range: 35 - 45 mmHg. The reference range was not used to interpret this result as normal/abnormal. PO2 (test code = 0049699543) 118 See_Comment H [Automated messa ge] The system which generated this result transmitted reference range: 80 - 100 mmHg. The reference range was not used to interpret this result as normal/abnormal. HCO3 (test code = 1611584757) 20 See_Comment L [Automated messa ge] The system which generated this result transmitted reference range: 22 - 26 mEq/L. The reference range was not used to interpret this result as normal/abnormal. BE (test code = 8591302398) -3.7 See_Comment L [Automated messa ge] The system which generated this result transmitted reference range: -3.0 - 3.0 mEq/L. The reference range was not used to interpret this result as normal/abnormal. THB (test code = 8320027675) 9.8 g/dL 12.0-16.0 L %O2HB (test code = 3596759061) 97.8 % 94.0-99.0 %COHB ART (test code = 4816571841) 0.1 % 0.0-1.5 %METHB ART (test code = 8446237215) 0.1 % 0.4-1.5 L VOL%O2 ART (test code = 6274381433) 13.7 % 15.0-23.0 L NA (test code = 1529782587) 132 mmol/L 135-145 L K+ (test code = 0180670962) 3.9 mmol/L 3.5-5.0 AC CA IONZ (test code = 9461850793) 5.00 mg/dL 4.50-5.30 GLUCOSE (test code = 8517193617) 70 mg/dL 70-110 LACTIC ACID (test code = 9118331926) 1.98 mmol/L 0.50-2.20 Lab Interpretation (test code = 37419-3) [facility] Lactic [id number] 10:31:21* Test Item Value Reference Range Interpretation Comme nts PH (test code = 2) 7.43 7.35-7.45 PCO2 (test code = 3701364507) 30 See_Comment L [Automated messa ge] The system which generated this result transmitted reference range: 35 - 45 mmHg. The reference range was not used to interpret this result as normal/abnormal. PO2 (test code = 7772032101) 118 See_Comment H [Automated messa ge] The system which generated this result transmitted reference range: 80 - 100 mmHg. The reference range was not used to interpret this result as normal/abnormal. HCO3 (test code = 0610281252) 20 See_Comment L [Automated messa ge] The system which generated this result transmitted reference range: 22 - 26 mEq/L. The reference range was not used to interpret this result as normal/abnormal. BE (test code = 5535804062) -3.7 See_Comment L [Automated messa ge] The system which generated this result transmitted reference range: -3.0 - 3.0 mEq/L. The reference range was not used to interpret this result as normal/abnormal. THB (test code = 8122384907) 9.8 g/dL 12.0-16.0 L %O2HB (test code = 3774581059) 97.8 % 94.0-99.0 %COHB ART (test code = 3995109929) 0.1 % 0.0-1.5 %METHB ART (test code = 6446757457) 0.1 % 0.4-1.5 L VOL%O2 ART (test code = 8841601933) 13.7 % 15.0-23.0 L NA (test code = 9819903444) 132 mmol/L 135-145 L K+ (test code = 5764073411) 3.9 mmol/L 3.5-5.0 AC CA IONZ (test code = 7133349927) 5.00 mg/dL 4.50-5.30 GLUCOSE (test code = 3806798773) 70 mg/dL 70-110 LACTIC ACID (test code = 9689164279) 1.98 mmol/L 0.50-2.20 Lab Interpretation (test code = 52412-2) Abnormal [facility] Acid Whole [id number] 05:39:49* Test Item Value Reference Range Interpretation Comme nts LACTIC ACID (test code = 9600841470) 2.19 mmol/L 0.50-2.20 Lab Interpretation (test cod e = 60093-9) Normal [facility] Acid Whole [id number] 05:39:49* Test Item Value Reference Range Interpretation Comme nts LACTIC ACID (test code = 6432145397) 2.19 mmol/L 0.50-2.20 Lab Interpretation (test cod e = 16001-1) Normal [facility] Acid Whole [id number] 19:13:57* Test Item Value Reference Range Interpretation Comme nts LACTIC ACID (test code = 2866771506) 4.47 mmol/L 0.50-2.20 H Lab Interpretation (test cod e = 20031-7) Abnormal [facility] Acid Whole [id number] 19:13:57* Test Item Value Reference Range Interpretation Comme nts LACTIC ACID (test code = 8017737017) 4.47 mmol/L 0.50-2.20 H Lab Interpretation (test cod e = 75954-1) Abnormal [facility] WITH [id number] 11:32:38* Test Item Value Reference Range Interpretation Comme nts WBC (test code = 6690-2) 3.70 See_Comment L [Automated messa ge] The system which generated this result transmitted reference range: 4.30 - 11.10 10*3/?L. The reference range was not used to interpret this result as normal/abnormal. RBC (test code = 789-8) 4.08 See_Comment [Automated messa ge] The system which generated this result transmitted reference range: 3.93 - 5.25 10*6/?L. The reference range was not used to interpret this result as normal/abnormal. HGB (test code = 718-7) 12.2 g/dL 11.6-15.0 HCT (test code = 4544-3) 36.2 % 35.7-45.2 MCV (test code = 787-2) 88.7 fL 80.6-95.5 MCH (test code = 785-6) 29.9 pg 25.9-32.8 MCHC (test code = 786-4) 33.7 g/dL 31.6-35.1 RDW-SD (test code = 89799-6) 42.7 fL 39.0-49.9 RDW-CV (test code = 788-0) 13.2 % 12.0-15.5 PLT (test code = 777-3) 319 See_Comment [Automated messa ge] The system which generated this result transmitted reference range: 166 - 358 10*3/?L. The reference range was not used to interpret this result as normal/abnormal. MPV (test code = 54412-3) 10.4 fL 9.5-12.9 NRBC/100 WBC (test code = 6499325247) 0.0 See_Comment [Automated [employer] ssage] The system which generated this result transmitted reference range: 0.0 - 10.0 /100 WBCs. The reference range was not used to interpret this result as normal/abnormal. NRBC x10^3 (test code = 9399040166) See_Comment [Automated [employer] ge] The system which generated this result transmitted reference range: 10*3/?L. The reference range was not used to interpret this result as normal/abnormal. GRAN MAT (NEUT) % (test code = 770-8) 75.2 % IMM GRAN % (test code = 7854317299) 0.50 % LYMPH % (test code = 736-9) 18.6 % MONO % (test code = 5905-5) 5.4 % EOS % (test code = 713-8) 0.0 % BASO % (test code = 706-2) 0.3 % GRAN MAT x10^3(ANC) (test code = 0904843219) 2.78 10*3/uL 1.88-7.09 IMM GRAN x10^3 (test code = 9232148573) 0.00-0.06 LYMPH x10^3 (test code = 731-0) 0.69 10*3/uL 1.32-3.29 L MONO x10^3 (test code = 742-7) 0.20 10*3/uL 0.33-0.92 L EOS x10^3 (test code = 711-2) 0.03-0.39 L BASO x10^3 (test code = 704-7) 0.01-0.07 Lab Interpretation (test code = 14890-3) Abnormal [facility] WITH [id number] 11:32:38* Test Item Value Reference Range Interpretation Comme nts WBC (test code = 6690-2) 3.70 See_Comment L [Automated messa ge] The system which generated this result transmitted reference range: 4.30 - 11.10 10*3/?L. The reference range was not used to interpret this result as normal/abnormal. RBC (test code = 789-8) 4.08 See_Comment [Automated messa ge] The system which generated this result transmitted reference range: 3.93 - 5.25 10*6/?L. The reference range was not used to interpret this result as normal/abnormal. HGB (test code = 718-7) 12.2 g/dL 11.6-15.0 HCT (test code = 4544-3) 36.2 % 35.7-45.2 MCV (test code = 787-2) 88.7 fL 80.6-95.5 MCH (test code = 785-6) 29.9 pg 25.9-32.8 MCHC (test code = 786-4) 33.7 g/dL 31.6-35.1 RDW-SD (test code = 06092-8) 42.7 fL 39.0-49.9 RDW-CV (test code = 788-0) 13.2 % 12.0-15.5 PLT (test code = 777-3) 319 See_Comment [Automated messa ge] The system which generated this result transmitted reference range: 166 - 358 10*3/?L. The reference range was not used to interpret this result as normal/abnormal. MPV (test code = 61718-1) 10.4 fL 9.5-12.9 NRBC/100 WBC (test code = 7200402244) 0.0 See_Comment [Automated [employer] ssage] The system which generated this result transmitted reference range: 0.0 - 10.0 /100 WBCs. The reference range was not used to interpret this result as normal/abnormal. NRBC x10^3 (test code = 8456177951) See_Comment [Automated messa ge] The system which generated this result transmitted reference range: 10*3/?L. The reference range was not used to interpret this result as normal/abnormal. GRAN MAT (NEUT) % (test code = 770-8) 75.2 % IMM GRAN % (test code = 9697031121) 0.50 % LYMPH % (test code = 736-9) 18.6 % MONO % (test code = 5905-5) 5.4 % EOS % (test code = 713-8) 0.0 % BASO % (test code = 706-2) 0.3 % GRAN MAT x10^3(ANC) (test code = 6672959142) 2.78 10*3/uL 1.88-7.09 IMM GRAN x10^3 (test code = 9677540721) 0.00-0.06 LYMPH x10^3 (test code = 731-0) 0.69 10*3/uL 1.32-3.29 L MONO x10^3 (test code = 742-7) 0.20 10*3/uL 0.33-0.92 L EOS x10^3 (test code = 711-2) 0.03-0.39 L BASO x10^3 (test code = 704-7) 0.01-0.07 Lab Interpretation (test code = 08318-2) Abnormal [facility] METABOLIC PANEL (NA, K, CL, CO2, GLUCOSE, BUN, CREATININE, CA)2022-12-18 11:17:48* Test Item Value Reference Range Interpretation Comme nts NA (test code = 3880888546) 126 mmol/L 135-145 L K (test code = 6727650127) 4.1 mmol/L 3.5-5.0 CL (test code = 2168035065) 97 mmol/L 98-108 L CO2 TOTAL (test code = 2139849293) 19 mmol/L 23-31 L AGAP (test code = 9478952224) 10 2-16 BUN (test code = 9846357104) 19 mg/dL 7-23 GLUCOSE (test code = 7430215260) 102 mg/dL 70-110 CREATININE (test code = 0219924510) 1.78 mg/dL 0.50-1.04 H CALCIUM (test code = 2887376865) 10.3 mg/dL 8.6-10.6 eGFR (test code = 22242-6) 36.2 mL/min/1.73m2 CKD-EPI eGFR (2020). Assuming creatinine has been stable day-to-day for at least three months, the eGFR indicates Category G3b (30 - 44 mL/min/1.73 m2) Lab Interpretation (test code = 06888-5) Abnormal [facility] METABOLIC PANEL (NA, K, CL, CO2, GLUCOSE, BUN, CREATININE, CA)2022-12-18 11:17:48* Test Item Value Reference Range Interpretation Comme nts NA (test code = 0397861586) 126 mmol/L 135-145 L K (test code = 2282362051) 4.1 mmol/L 3.5-5.0 CL (test code = 4156638986) 97 mmol/L 98-108 L CO2 TOTAL (test code = 0842105234) 19 mmol/L 23-31 L AGAP (test code = 6280299006) 10 2-16 BUN (test code = 9741831612) 19 mg/dL 7-23 GLUCOSE (test code = 9854591073) 102 mg/dL 70-110 CREATININE (test code = 0342371883) 1.78 mg/dL 0.50-1.04 H CALCIUM (test code = 5230172870) 10.3 mg/dL 8.6-10.6 eGFR (test code = 82767-0) 36.2 mL/min/1.73m2 CKD-EPI eGFR (2020). Assuming creatinine has been stable day-to-day for at least three months, the eGFR indicates Category G3b (30 - 44 mL/min/1.73 m2) Lab Interpretation (test code = 45846-7) Abnormal [facility] METABOLIC PANEL (NA, K, CL, CO2, GLUCOSE, BUN, CREATININE, CA)2022-12-17 23:14:58* Test Item Value Reference Range Interpretation Comme nts NA (test code = 2832888735) 128 mmol/L 135-145 L K (test code = 5645117073) 3.7 mmol/L 3.5-5.0 CL (test code = 4178710580) 97 mmol/L 98-108 L CO2 TOTAL (test code = 7963855639) 16 mmol/L 23-31 L AGAP (test code = 9728635553) 15 2-16 BUN (test code = 5854645529) 13 mg/dL 7-23 GLUCOSE (test code = 3118655264) 156 mg/dL 70-110 H CREATININE (test code = 2963156033) 1.06 mg/dL 0.50-1.04 H CALCIUM (test code = 9739401241) 11.0 mg/dL 8.6-10.6 H eGFR (test code = 27368-2) 67.4 mL/min/1.73m2 CKD-EPI eGFR (2020). Assuming creatinine has been stable day-to-day for at least three months, the eGFR indicates Category G2 (60 - 89 mL/min/1.73 m2) Lab Interpretation (test code = 04067-2) Abnormal [facility] METABOLIC PANEL (NA, K, CL, CO2, GLUCOSE, BUN, CREATININE, CA)2022-12-17 23:14:58* Test Item Value Reference Range Interpretation Comme nts NA (test code = 1567255001) 128 mmol/L 135-145 L K (test code = 4848856867) 3.7 mmol/L 3.5-5.0 CL (test code = 2150505003) 97 mmol/L 98-108 L CO2 TOTAL (test code = 6086039017) 16 mmol/L 23-31 L AGAP (test code = 4339945992) 15 2-16 BUN (test code = 0102388230) 13 mg/dL 7-23 GLUCOSE (test code = 2372665335) 156 mg/dL 70-110 H CREATININE (test code = 9361662141) 1.06 mg/dL 0.50-1.04 H CALCIUM (test code = 9955873613) 11.0 mg/dL 8.6-10.6 H eGFR (test code = 41481-2) 67.4 mL/min/1.73m2 CKD-EPI eGFR (2020). Assuming creatinine has been stable day-to-day for at least three months, the eGFR indicates Category G2 (60 - 89 mL/min/1.73 m2) Lab Interpretation (test code = 85968-9) Abnormal [facility] with Differential - On Postoperative Day # [id number] 21:17:38* Test Item Value Reference Range Interpretation Comme nts WBC (test code = 6690-2) 19.32 See_Comment H [Automated message] The system which generated this result transmitted reference range: 4.30 - 11.10 10*3/?L. The reference range was not used to interpret this result as normal/abnormal. RBC (test code = 789-8) 4.85 See_Comment [Automated message] The system which generated this result transmitted reference range: 3.93 - 5.25 10*6/?L. The reference range was not used to interpret this result as normal/abnormal. HGB (test code = 718-7) 14.4 g/dL 11.6-15.0 HCT (test code = 4544-3) 43.8 % 35.7-45.2 MCV (test code = 787-2) 90.3 fL 80.6-95.5 MCH (test code = 785-6) 29.7 pg 25.9-32.8 MCHC (test code = 786-4) 32.9 g/dL 31.6-35.1 RDW-SD (test code = 68544-4) 43.5 fL 39.0-49.9 RDW-CV (test code = 788-0) 13.2 % 12.0-15.5 PLT (test code = 777-3) 483 See_Comment H [Automated message] The system which generated this result transmitted reference range: 166 - 358 10*3/?L. The reference range was not used to interpret this result as normal/abnormal. MPV (test code = 02979-4) 10.1 fL 9.5-12.9 NRBC/100 WBC (test code = 4277715215) 0.0 See_Comment [Automated message] The system which generated this result transmitted reference range: 0.0 - 10.0 /100 WBCs. The reference range was not used to interpret this result as normal/abnormal. NRBC x10^3 (test code = 2563853872) See_Comment [Automated message] The system which generated this result transmitted reference range: 10*3/?L. The reference range was not used to interpret this result as normal/abnormal. GRAN MAT (NEUT) % (test code = 770-8) 89.7 % IMM GRAN % (test code = 0025426938) 0.40 % LYMPH % (test code = 736-9) 5.7 % MONO % (test code = 5905-5) 4.0 % EOS % (test code = 713-8) 0.0 % BASO % (test code = 706-2) 0.2 % GRAN MAT x10^3(ANC) (test code = 7270329343) 17.33 10*3/uL 1.88-7.09 H IMM GRAN x10^3 (test code = 5872674403) 0.07 10*3/uL 0.00-0.06 H LYMPH x10^3 (test code = 731-0) 1.11 10*3/uL 1.32-3.29 L MONO x10^3 (test code = 742-7) 0.78 10*3/uL 0.33-0.92 EOS x10^3 (test code = 711-2) 0.03-0.39 L BASO x10^3 (test code = 704-7) 0.03 10*3/uL 0.01-0.07 LINCOLN CELLS (test code = 7790-9) 2+ See_Comment A [Automated message] The system which generated this result transmitted reference range: (none). The reference range was not used to interpret this result as normal/abnormal. BANDS (test code = 2049811901) MARKED INCREASED A Lab Interpretation (test code = 81023-4) Abnormal [facility] with Differential - On Postoperative Day # [id number] 21:17:38* Test Item Value Reference Range Interpretation Comme nts WBC (test code = 6690-2) 19.32 See_Comment H [Automated message] The system which generated this result transmitted reference range: 4.30 - 11.10 10*3/?L. The reference range was not used to interpret this result as normal/abnormal. RBC (test code = 789-8) 4.85 See_Comment [Automated message] The system which generated this result transmitted reference range: 3.93 - 5.25 10*6/?L. The reference range was not used to interpret this result as normal/abnormal. HGB (test code = 718-7) 14.4 g/dL 11.6-15.0 HCT (test code = 4544-3) 43.8 % 35.7-45.2 MCV (test code = 787-2) 90.3 fL 80.6-95.5 MCH (test code = 785-6) 29.7 pg 25.9-32.8 MCHC (test code = 786-4) 32.9 g/dL 31.6-35.1 RDW-SD (test code = 93599-8) 43.5 fL 39.0-49.9 RDW-CV (test code = 788-0) 13.2 % 12.0-15.5 PLT (test code = 777-3) 483 See_Comment H [Automated message] The system which generated this result transmitted reference range: 166 - 358 10*3/?L. The reference range was not used to interpret this result as normal/abnormal. MPV (test code = 01691-1) 10.1 fL 9.5-12.9 NRBC/100 WBC (test code = 2608200173) 0.0 See_Comment [Automated message] The system which generated this result transmitted reference range: 0.0 - 10.0 /100 WBCs. The reference range was not used to interpret this result as normal/abnormal. NRBC x10^3 (test code = 3181299903) See_Comment [Automated message] The system which generated this result transmitted reference range: 10*3/?L. The reference range was not used to interpret this result as normal/abnormal. GRAN MAT (NEUT) % (test code = 770-8) 89.7 % IMM GRAN % (test code = 3891930656) 0.40 % LYMPH % (test code = 736-9) 5.7 % MONO % (test code = 5905-5) 4.0 % EOS % (test code = 713-8) 0.0 % BASO % (test code = 706-2) 0.2 % GRAN MAT x10^3(ANC) (test code = 6417689837) 17.33 10*3/uL 1.88-7.09 H IMM GRAN x10^3 (test code = 6735081663) 0.07 10*3/uL 0.00-0.06 H LYMPH x10^3 (test code = 731-0) 1.11 10*3/uL 1.32-3.29 L MONO x10^3 (test code = 742-7) 0.78 10*3/uL 0.33-0.92 EOS x10^3 (test code = 711-2) 0.03-0.39 L BASO x10^3 (test code = 704-7) 0.03 10*3/uL 0.01-0.07 LINCOLN CELLS (test code = 7790-9) 2+ See_Comment A [Automated message] The system which generated this result transmitted reference range: (none). The reference range was not used to interpret this result as normal/abnormal. BANDS (test code = 0961250471) MARKED INCREASED A Lab Interpretation (test code = 17833-4) Abnormal [facility] with Differential - On Postoperative Day # [id number] 21:17:38* Test Item Value Reference Range Interpretation Comme nts WBC (test code = 6690-2) 19.32 See_Comment H [Automated message] The system which generated this result transmitted reference range: 4.30 - 11.10 10*3/?L. The reference range was not used to interpret this result as normal/abnormal. RBC (test code = 789-8) 4.85 See_Comment [Automated message] The system which generated this result transmitted reference range: 3.93 - 5.25 10*6/?L. The reference range was not used to interpret this result as normal/abnormal. HGB (test code = 718-7) 14.4 g/dL 11.6-15.0 HCT (test code = 4544-3) 43.8 % 35.7-45.2 MCV (test code = 787-2) 90.3 fL 80.6-95.5 MCH (test code = 785-6) 29.7 pg 25.9-32.8 MCHC (test code = 786-4) 32.9 g/dL 31.6-35.1 RDW-SD (test code = 51081-9) 43.5 fL 39.0-49.9 RDW-CV (test code = 788-0) 13.2 % 12.0-15.5 PLT (test code = 777-3) 483 See_Comment H [Automated message] The system which generated this result transmitted reference range: 166 - 358 10*3/?L. The reference range was not used to interpret this result as normal/abnormal. MPV (test code = 52561-8) 10.1 fL 9.5-12.9 NRBC/100 WBC (test code = 4569909650) 0.0 See_Comment [Automated message] The system which generated this result transmitted reference range: 0.0 - 10.0 /100 WBCs. The reference range was not used to interpret this result as normal/abnormal. NRBC x10^3 (test code = 3218955200) See_Comment [Automated message] The system which generated this result transmitted reference range: 10*3/?L. The reference range was not used to interpret this result as normal/abnormal. GRAN MAT (NEUT) % (test code = 770-8) 89.7 % IMM GRAN % (test code = 7403359390) 0.40 % LYMPH % (test code = 736-9) 5.7 % MONO % (test code = 5905-5) 4.0 % EOS % (test code = 713-8) 0.0 % BASO % (test code = 706-2) 0.2 % GRAN MAT x10^3(ANC) (test code = 0912233347) 17.33 10*3/uL 1.88-7.09 H IMM GRAN x10^3 (test code = 2753301687) 0.07 10*3/uL 0.00-0.06 H LYMPH x10^3 (test code = 731-0) 1.11 10*3/uL 1.32-3.29 L MONO x10^3 (test code = 742-7) 0.78 10*3/uL 0.33-0.92 EOS x10^3 (test code = 711-2) 0.03-0.39 L BASO x10^3 (test code = 704-7) 0.03 10*3/uL 0.01-0.07 LINCOLN CELLS (test code = 7790-9) 2+ See_Comment A [Automated message] The system which generated this result transmitted reference range: (none). The reference range was not used to interpret this result as normal/abnormal. BANDS (test code = 4776773675) MARKED INCREASED A Lab Interpretation (test code = 48167-7) Abnormal [facility] WITH [id number] 05:49:00* Test Item Value Reference Range Interpretation Comme nts WBC (test code = 6690-2) 15.91 See_Comment H [Automated message] The system which generated this result transmitted reference range: 4.30 - 11.10 10*3/?L. The reference range was not used to interpret this result as normal/abnormal. RBC (test code = 789-8) 4.26 See_Comment [Automated message] The system which generated this result transmitted reference range: 3.93 - 5.25 10*6/?L. The reference range was not used to interpret this result as normal/abnormal. HGB (test code = 718-7) 12.6 g/dL 11.6-15.0 HCT (test code = 4544-3) 38.2 % 35.7-45.2 MCV (test code = 787-2) 89.7 fL 80.6-95.5 MCH (test code = 785-6) 29.6 pg 25.9-32.8 MCHC (test code = 786-4) 33.0 g/dL 31.6-35.1 RDW-SD (test code = 32360-4) 42.8 fL 39.0-49.9 RDW-CV (test code = 788-0) 13.2 % 12.0-15.5 PLT (test code = 777-3) 348 See_Comment [Automated message] The system which generated this result transmitted reference range: 166 - 358 10*3/?L. The reference range was not used to interpret this result as normal/abnormal. MPV (test code = 70465-8) 10.2 fL 9.5-12.9 NRBC/100 WBC (test code = 8215747265) 0.0 See_Comment [Automated message] The system which generated this result transmitted reference range: 0.0 - 10.0 /100 WBCs. The reference range was not used to interpret this result as normal/abnormal. NRBC x10^3 (test code = 8052280392) See_Comment [Automated message] The system which generated this result transmitted reference range: 10*3/?L. The reference range was not used to interpret this result as normal/abnormal. GRAN MAT (NEUT) % (test code = 770-8) 87.8 % IMM GRAN % (test code = 9685614208) 0.30 % LYMPH % (test code = 736-9) 8.1 % MONO % (test code = 5905-5) 3.7 % EOS % (test code = 713-8) 0.0 % BASO % (test code = 706-2) 0.1 % GRAN MAT x10^3(ANC) (test code = 4155503738) 13.96 10*3/uL 1.88-7.09 H IMM GRAN x10^3 (test code = 2395851905) 0.05 10*3/uL 0.00-0.06 LYMPH x10^3 (test code = 731-0) 1.29 10*3/uL 1.32-3.29 L MONO x10^3 (test code = 742-7) 0.59 10*3/uL 0.33-0.92 EOS x10^3 (test code = 711-2) 0.03-0.39 L BASO x10^3 (test code = 704-7) 0.01-0.07 Lab Interpretation (test code = 71644-1) Abnormal [facility] WITH [id number] 05:49:00* Test Item Value Reference Range Interpretation Comme nts WBC (test code = 6690-2) 15.91 See_Comment H [Automated message] The system which generated this result transmitted reference range: 4.30 - 11.10 10*3/?L. The reference range was not used to interpret this result as normal/abnormal. RBC (test code = 789-8) 4.26 See_Comment [Automated message] The system which generated this result transmitted reference range: 3.93 - 5.25 10*6/?L. The reference range was not used to interpret this result as normal/abnormal. HGB (test code = 718-7) 12.6 g/dL 11.6-15.0 HCT (test code = 4544-3) 38.2 % 35.7-45.2 MCV (test code = 787-2) 89.7 fL 80.6-95.5 MCH (test code = 785-6) 29.6 pg 25.9-32.8 MCHC (test code = 786-4) 33.0 g/dL 31.6-35.1 RDW-SD (test code = 39178-4) 42.8 fL 39.0-49.9 RDW-CV (test code = 788-0) 13.2 % 12.0-15.5 PLT (test code = 777-3) 348 See_Comment [Automated message] The system which generated this result transmitted reference range: 166 - 358 10*3/?L. The reference range was not used to interpret this result as normal/abnormal. MPV (test code = 54330-1) 10.2 fL 9.5-12.9 NRBC/100 WBC (test code = 5722959516) 0.0 See_Comment [Automated message] The system which generated this result transmitted reference range: 0.0 - 10.0 /100 WBCs. The reference range was not used to interpret this result as normal/abnormal. NRBC x10^3 (test code = 9545104466) See_Comment [Automated message] The system which generated this result transmitted reference range: 10*3/?L. The reference range was not used to interpret this result as normal/abnormal. GRAN MAT (NEUT) % (test code = 770-8) 87.8 % IMM GRAN % (test code = 2277137165) 0.30 % LYMPH % (test code = 736-9) 8.1 % MONO % (test code = 5905-5) 3.7 % EOS % (test code = 713-8) 0.0 % BASO % (test code = 706-2) 0.1 % GRAN MAT x10^3(ANC) (test code = 3868237256) 13.96 10*3/uL 1.88-7.09 H IMM GRAN x10^3 (test code = 5411169844) 0.05 10*3/uL 0.00-0.06 LYMPH x10^3 (test code = 731-0) 1.29 10*3/uL 1.32-3.29 L MONO x10^3 (test code = 742-7) 0.59 10*3/uL 0.33-0.92 EOS x10^3 (test code = 711-2) 0.03-0.39 L BASO x10^3 (test code = 704-7) 0.01-0.07 Lab Interpretation (test code = 90903-0) Abnormal [facility] WITH [id number] 05:49:00* Test Item Value Reference Range Interpretation Comme nts WBC (test code = 6690-2) 15.91 See_Comment H [Automated message] The system which generated this result transmitted reference range: 4.30 - 11.10 10*3/?L. The reference range was not used to interpret this result as normal/abnormal. RBC (test code = 789-8) 4.26 See_Comment [Automated message] The system which generated this result transmitted reference range: 3.93 - 5.25 10*6/?L. The reference range was not used to interpret this result as normal/abnormal. HGB (test code = 718-7) 12.6 g/dL 11.6-15.0 HCT (test code = 4544-3) 38.2 % 35.7-45.2 MCV (test code = 787-2) 89.7 fL 80.6-95.5 MCH (test code = 785-6) 29.6 pg 25.9-32.8 MCHC (test code = 786-4) 33.0 g/dL 31.6-35.1 RDW-SD (test code = 83401-5) 42.8 fL 39.0-49.9 RDW-CV (test code = 788-0) 13.2 % 12.0-15.5 PLT (test code = 777-3) 348 See_Comment [Automated message] The system which generated this result transmitted reference range: 166 - 358 10*3/?L. The reference range was not used to interpret this result as normal/abnormal. MPV (test code = 13234-8) 10.2 fL 9.5-12.9 NRBC/100 WBC (test code = 7941458319) 0.0 See_Comment [Automated message] The system which generated this result transmitted reference range: 0.0 - 10.0 /100 WBCs. The reference range was not used to interpret this result as normal/abnormal. NRBC x10^3 (test code = 0102061288) See_Comment [Automated message] The system which generated this result transmitted reference range: 10*3/?L. The reference range was not used to interpret this result as normal/abnormal. GRAN MAT (NEUT) % (test code = 770-8) 87.8 % IMM GRAN % (test code = 9960725927) 0.30 % LYMPH % (test code = 736-9) 8.1 % MONO % (test code = 5905-5) 3.7 % EOS % (test code = 713-8) 0.0 % BASO % (test code = 706-2) 0.1 % GRAN MAT x10^3(ANC) (test code = 3738296346) 13.96 10*3/uL 1.88-7.09 H IMM GRAN x10^3 (test code = 1892454153) 0.05 10*3/uL 0.00-0.06 LYMPH x10^3 (test code = 731-0) 1.29 10*3/uL 1.32-3.29 L MONO x10^3 (test code = 742-7) 0.59 10*3/uL 0.33-0.92 EOS x10^3 (test code = 711-2) 0.03-0.39 L BASO x10^3 (test code = 704-7) 0.01-0.07 Lab Interpretation (test code = 59587-4) Abnormal [facility] [id number] 13:00:00* Test Item Value Reference Range Interpretation Comme nts POCT PREG (test code = 1605) Negative On board controls acceptable with C Line (test code = 3574) Yes POCT PREG LOT # (test code = 3575) [id number] POCT PREG TEST DATE ( test code = 3576) 02/10/2024 [facility] [id number] 13:00:00* Test Item Value Reference Range Interpretation Comme nts POCT PREG (test code = 1605) Negative On board controls acceptable with C Line (test code = 3574) Yes POCT PREG LOT # (test code = 3575) [id number] POCT PREG TEST DATE ( test code = 3576) [id number]* Test Item Value Reference Range Interpretation Comme nts POCT PREG (test code = 1605) Negative On board controls acceptable with C Line (test code = 3574) Yes POCT PREG LOT # (test code = 3575) [id number] POCT PREG TEST DATE ( test code = 3576) 02/10/2024 [facility] [id number] 13:00:00* Test Item Value Reference Range Interpretation Comme nts POCT PREG (test code = 1605) Negative On board controls acceptable with C Line (test code = 3574) Yes POCT PREG LOT # (test code = 3575) [id number] POCT PREG TEST DATE ( test code = 3576) 02/10/2024 [facility] URINALYSIS W/O SPECIFIC [id number] 20:02:00* Test Item Value Reference Range Interpretation Comme nts POCT PH U (test code = 3254) 5 mg/dl 5-8 POCT U LEUK EST (test code = 3263) neg Negative - Negative POCT U NIT (test code = 3262) neg Negative - Negati ve POCT U PROT (test code = 3259) neg Negative - Negat vanessa POCT U GLU (test code = 3256) 250 Negative - Negati ve POCT U KETONE (test code = 3258) neg Negative - Neg ative POCT U BLD (test code = 3257) neg Negative - Negati ve [facility] URINALYSIS W/O SPECIFIC [id number] 20:02:00* Test Item Value Reference Range Interpretation Comme nts POCT PH U (test code = 3254) 5 mg/dl 5-8 POCT U LEUK EST (test code = 3263) neg Negative - Negative POCT U NIT (test code = 3262) neg Negative - Negati ve POCT U PROT (test code = 3259) neg Negative - Negat vanessa POCT U GLU (test code = 3256) 250 Negative - Negati ve POCT U KETONE (test code = 3258) neg Negative - Neg ative POCT U BLD (test code = 3257) neg Negative - Negati ve [facility] URINALYSIS W/O SPECIFIC [id number] 20:02:00* Test Item Value Reference Range Interpretation Comme nts POCT PH U (test code = 3254) 5 mg/dl 5-8 POCT U LEUK EST (test code = 3263) neg Negative - Negative POCT U NIT (test code = 3262) neg Negative - Negati ve POCT U PROT (test code = 3259) neg Negative - Negat vanessa POCT U GLU (test code = 3256) 250 Negative - Negati ve POCT U KETONE (test code = 3258) neg Negative - Neg ative POCT U BLD (test code = 3257) neg Negative - Negati ve [facility] URINALYSIS W/O SPECIFIC [id number] 20:02:00* Test Item Value Reference Range Interpretation Comme nts POCT PH U (test code = 3254) 5 mg/dl 5-8 POCT U LEUK EST (test code = 3263) neg Negative - Negative POCT U NIT (test code = 3262) neg Negative - Negati ve POCT U PROT (test code = 3259) neg Negative - Negat vanessa POCT U GLU (test code = 3256) 250 Negative - Negati ve POCT U KETONE (test code = 3258) neg Negative - Neg ative POCT U BLD (test code = 3257) neg Negative - Negati ve [facility] URINALYSIS W/O SPECIFIC [id number] 21:19:00* Test Item Value Reference Range Interpretation Comme nts POCT PH U (test code = 3254) 7 mg/dl 5-8 POCT U LEUK EST (test code = 3263) TRACE Negative - Negative POCT U NIT (test code = 3262) NEG Negative - Negati ve POCT U PROT (test code = 3259) +/30 Negative - Negat vanessa POCT U GLU (test code = 3256) NORMAL Negative - Negati ve POCT U KETONE (test code = 3258) NEG Negative - Neg ative POCT U BLD (test code = 3257) TRACE Negative - Negati ve [facility] URINALYSIS W/O SPECIFIC [id number] 21:19:00* Test Item Value Reference Range Interpretation Comme nts POCT PH U (test code = 3254) 7 mg/dl 5-8 POCT U LEUK EST (test code = 3263) TRACE Negative - Negative POCT U NIT (test code = 3262) NEG Negative - Negati ve POCT U PROT (test code = 3259) +/30 Negative - Negat vanessa POCT U GLU (test code = 3256) NORMAL Negative - Negati ve POCT U KETONE (test code = 3258) NEG Negative - Neg ative POCT U BLD (test code = 3257) TRACE Negative - Negati ve [facility] URINALYSIS W/O SPECIFIC [id number] 18:26:00* Test Item Value Reference Range Interpretation Comme nts POCT PH U (test code = 3254) 5 mg/dl 5-8 POCT U LEUK EST (test code = 3263) Negative Negative - Negative POCT U NIT (test code = 3262) Negative Negative - Negati ve POCT U PROT (test code = 3259) Negative Negative - Negat vanessa POCT U GLU (test code = 3256) Normal Negative - Negati ve POCT U KETONE (test code = 3258) Negative Negative - Neg ative POCT U BLD (test code = 3257) 250 Negative - Negati ve [facility] URINALYSIS W/O SPECIFIC [id number] 18:26:00* Test Item Value Reference Range Interpretation Comme nts POCT PH U (test code = 3254) 5 mg/dl 5-8 POCT U LEUK EST (test code = 3263) Negative Negative - Negative POCT U NIT (test code = 3262) Negative Negative - Negati ve POCT U PROT (test code = 3259) Negative Negative - Negat vanessa POCT U GLU (test code = 3256) Normal Negative - Negati ve POCT U KETONE (test code = 3258) Negative Negative - Neg ative POCT U BLD (test code = 3257) 250 Negative - Negati ve [facility] [id number] 18:54:00* Test Item Value Reference Range Interpretation Comme nts POCT PREG (test code = 1605) Negative On board controls acceptable with C Line (test code = 3574) Yes POCT PREG LOT # (test code = 3575) POCT PREG TEST DATE ( test code = 3576) [facility] [id number] 18:54:00* Test Item Value Reference Range Interpretation Comme nts POCT PREG (test code = 1605) Negative On board controls acceptable with C Line (test code = 3574) Yes POCT PREG LOT # (test code = 3575) POCT PREG TEST DATE ( test code = 3576) [facility] URINALYSIS W/O SPECIFIC [id number] 18:52:00* Test Item Value Reference Range Interpretation Comme nts POCT PH U (test code = 3254) 6 mg/dl 5-8 POCT U LEUK EST (test code = 3263) Trace Negative - Negative POCT U NIT (test code = 3262) Negative Negative - Negati ve POCT U PROT (test code = 3259) Negtaive Negative - Negat vanessa POCT U GLU (test code = 3256) Negative Negative - Negati ve POCT U KETONE (test code = 3258) Negative Negative - Neg ative POCT U BLD (test code = 3257) 2+ Negative - Negati ve [facility] URINALYSIS W/O SPECIFIC [id number] 18:52:00* Test Item Value Reference Range Interpretation Comme nts POCT PH U (test code = 3254) 6 mg/dl 5-8 POCT U LEUK EST (test code = 3263) Trace Negative - Negative POCT U NIT (test code = 3262) Negative Negative - Negati ve POCT U PROT (test code = 3259) Negtaive Negative - Negat vanessa POCT U GLU (test code = 3256) Negative Negative - Negati ve POCT U KETONE (test code = 3258) Negative Negative - Neg ative POCT U BLD (test code = 3257) 2+ Negative - Negati ve [facility] URINALYSIS W SPECIFIC [id number] 00:47:00* Test Item Value Reference Range Interpretation Comme nts POCT U SP GRAV (test code = 3255) 1.010 mg/dl 1.005-1.025 POCT PH U (test code = 3254) 5.0 mg/dl 5-8 POCT U LEUK EST (test code = 3263) neg Negative - Negative POCT U NIT (test code = 3262) neg Negative - Negative POCT U PROT (test code = 3259) neg Negative - Negative POCT U GLU (test code = 3256) normal Negative - Negative POCT U KETONE (test code = 3258) neg Negative - Negative POCT U UROBILI (test code = 3260) normal 0.2-1 POCT U BILI (test code = 3261) neg Negative - Negative POCT U BLD (test code = 3257) trace Negative - Negative POCT U COLOR (test code = 3266) POCT U APPEAR (test code = 3267) JEANINE (test code = JEANINE) accurate development and interpretation of all internal controls [facility] URINALYSIS W SPECIFIC [id number] 00:47:00* Test Item Value Reference Range Interpretation Comme nts POCT U SP GRAV (test code = 3255) 1.010 mg/dl 1.005-1.025 POCT PH U (test code = 3254) 5.0 mg/dl 5-8 POCT U LEUK EST (test code = 3263) neg Negative - Negative POCT U NIT (test code = 3262) neg Negative - Negative POCT U PROT (test code = 3259) neg Negative - Negative POCT U GLU (test code = 3256) normal Negative - Negative POCT U KETONE (test code = 3258) neg Negative - Negative POCT U UROBILI (test code = 3260) normal 0.2-1 POCT U BILI (test code = 3261) neg Negative - Negative POCT U BLD (test code = 3257) trace Negative - Negative POCT U COLOR (test code = 3266) POCT U APPEAR (test code = 3267) JEANINE (test code = JEANINE) accurate development and interpretation of all internal controls [facility] [id number] 00:46:00* Test Item Value Reference Range Interpretation Comme nts POCT PREG (test code = 1605) Negative On board controls acceptable with C Line (test code = 3574) Yes POCT PREG LOT # (test code = 3575) POCT PREG TEST DATE ( test code = 3576) [facility] [id number] 00:46:00* Test Item Value Reference Range Interpretation Comme nts POCT PREG (test code = 1605) Negative On board controls acceptable with C Line (test code = 3574) Yes POCT PREG LOT # (test code = 3575) POCT PREG TEST DATE ( test code = 3576) [facility] URINALYSIS W/O SPECIFIC [id number] 19:44:00* Test Item Value Reference Range Interpretation Comme nts POCT PH U (test code = 3254) 6 mg/dl 5-8 POCT U LEUK EST (test code = 3263) negative Negative - Negative POCT U NIT (test code = 3262) negative Negative - Negati ve POCT U PROT (test code = 3259) 30 Negative - Negat vanessa POCT U GLU (test code = 3256) negative Negative - Negati ve POCT U KETONE (test code = 3258) trace Negative - Neg ative POCT U BLD (test code = 3257) trace Negative - Negati ve [facility] URINALYSIS W/O SPECIFIC [id number] 19:44:00* Test Item Value Reference Range Interpretation Comme nts POCT PH U (test code = 3254) 6 mg/dl 5-8 POCT U LEUK EST (test code = 3263) negative Negative - Negative POCT U NIT (test code = 3262) negative Negative - Negati ve POCT U PROT (test code = 3259) 30 Negative - Negat vanessa POCT U GLU (test code = 3256) negative Negative - Negati ve POCT U KETONE (test code = 3258) trace Negative - Neg ative POCT U BLD (test code = 3257) trace Negative - [facility]ati ve [facility], [id number] 09:31:01 * Test Item Value Reference Range Interpretation Comme nts SOURCE: (test code = 8001) Cervical/Endo cervical SLIDES: (test code = 8011) 1 LMP: (test code = 8021) 01/28/2021 SPECIMEN ADEQUACY: (test code = 68862) (NOTE) Satisfactory for evaluation. Endocervical cells/transformation zone component present. INTERPRETATION: (test code = 37571) NILM/NO EPITH. ABNORMALITY;S EE BELOW ---- NEGATIVE FOR INTRAEPITHELIAL LESION OR MALIGNANCY (NILM) - HARVESTER OPERATOR: (test code = 8101) EMANUEL Balderrama(ASC P) QC TECHNOLOGIST: (test code = 8111) EMANUEL GUALLPA(ASCP) LOCATION: (test code = 23107) (NOTE) Specimens proces sed and interpreted at [facility], [address] [place] [address], , CLIA: [id number] CPT: (test code = 8140) (NOTE) 31742 UNLESS OTH ERWISE INDICATED, COMPUTER AIDED AND HARVESTER OPERATOR SCREENING PERFORMED. The Pap test is a screening test with an inherent, but low probability of error. Your patient should be reminded to consult you immediately if she experiences any suspicious signs or symptoms, regardless of her Pap test result. An alternate report format containing images or consolidated prior Pap history is available as applicable. PAP TEST, THINPREP, [id number] 00:00:00* Test Item Value Reference Range Interpretation Comme nts SOURCE: (test code = 8001) Cervical/Endocervical SLIDES: (test code = 8011) 1 LMP: (test code = 8021) 01/28/2021 SPECIMEN ADEQUACY: (test code = 71871) (NOTE) INTERPRETATION: (test code = 46723) NILM/NO EPITH. 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: (test code = 8101) EMANUEL Balderrama(ASCP) QC TECHNOLOGIST: (test code = 8111) EMANUEL GUALLPA(ASCP) LOCATION: (test code = 85138) (NOTE) CPT: (test code = 8140) (NOTE) HPV HIGH RISK WITH GENOTYPE, [id number] 13:17:15* Test Item Value Reference Range Interpretation Comme nts HPV HIGH RISK INTERP (test code = 96237) NEGATIVE NEGATIVE HPV 16 (test code = 90697) NEGATIVE HPV 18 (test code = 63165) NEGATIVE HPV, HR, OTHER GENOTYPES (test code = 14062) NEGATIVE Testing methodol ogy is real-time PCR utilizing hydrolysis probes with the Hypercontextas 4800 system. The test individually detects genotypes 16 and 18, as well as the other 12 high risk types (31,33,35,39,45,51,52,56 ,58,59,66,68). The expected result is negative. A negative result does not rule out the presence of HPV not included in the genotype set, a low level of infection or specimen sampling error. UNLESS OTHERWISE INDICATED, ALL TESTING PERFORMED [facility] [address] [place] [address] TOWEL SORTER: JOSEPH VAZQUEZ M.D. CLIA NUMBER [id number] [facility] [place] [id number] HPV HIGH RISK WITH GENOTYPE, [id number] 00:00:00* Test Item Value Reference Range Interpretation Comme nts HPV HIGH RISK INTERP (test c ode = 40526) NEGATIVE HPV 16 (test code = 57435) NEGATIVE HPV 18 (test code = 56044) NEGATIVE HPV, HR, OTHER GENOTYPES (te st code = 37710) NEGATIVE PAP TEST, THINPREP, [id number] 00:00:00* Test Item Value Reference Range Interpretation Comme nts SOURCE: (test code = 8001) Cervical/Endocervical SLIDES: (test code = 8011) 2 LMP: (test code = 8021) 01/02/2021 SPECIMEN ADEQUACY: (test code = 98897) (NOTE) INTERPRETATION: (test code = 18996) UNSATISFACTORY; SEE BELOW OTHER COMMENTS: (test code = 8081) (NOTE) HARVESTER OPERATOR: (test code = 8101) RAVINDER DÍAZ,CT(ASCP) QC TECHNOLOGIST: (test code = 8111) Parish MastersCT(ASCP)IAC LOCATION: (test code = 98567) (NOTE) CPT: (test code = 8140) (NOTE) TRICHOMONAS, THINPREP, [id number] 00:00:00* Test Item Value Reference Range Interpretation Comme nts TRICHOMONAS, AMPLIFIED (test code = 87539) NEGATIVE GC AND CHLAMYDIA AMPLIFIED, [id number] 00:00:00* Test Item Value Reference Range Interpretation Comme nts GONORRHEA, TMA (test code = 99892) NEGATIVE CHLAMYDIA, TMA (test code = 22945) NEGATIVE HPV HIGH RISK WITH GENOTYPE, [id number] 00:00:00* Test Item Value Reference Range Interpretation Comme nts HPV HIGH RISK INTERP (test c ode = 40706) POSITIVE HPV 16 (test code = 26036) NEGATIVE HPV 18 (test code = 11115) NEGATIVE HPV, HR, OTHER GENOTYPES (te st code = 66481) POSITIVE VAGINAL PATHOGENS DNA [id number] 00:00:00* Test Item Value Reference Range Interpretation Comme nts CONNIE SPECIES (test code = 74314) POSITIVE G. VAGINALIS (test code = 64431) NEGATIVE T. VAGINALIS (test code = 29668) NEGATIVE [id number] 00:00:00* Test Item Value Reference Range Interpretation Comme nts RPR RESULT (test code = 3501) NON-REACTIVE RPR TITER (test code = 3500) NOT INDIC. TITER [id number] 00:00:00* Test Item Value Reference Range Interpretation Comme nts RPR RESULT (test code = 3501) NON-REACTIVE RPR TITER (test code = 3500) NOT INDIC. TITER HIV AB/AG COMBO RFLX [id number] 00:00:00* Test Item Value Reference Range Interpretation Comme nts HIV 1/2 4TH GEN, RFLX CONF ( test code = 3514) NON-REACTIVE ACUTE HEPATITIS [id number] 00:00:00* Test Item Value Reference Range Interpretation Comme nts HEPATITIS A IgM (test code = 63706) NON-REACTIVE HEPATITIS B CORE IgM (test c ode = 4644) NON-REACTIVE HEPATITIS B SURF AG (test co de = 8659) NON-REACTIVE HEPATITIS C ANTIBODY (test c ode = 4675) NON-REACTIVE INTERPRETATION HEPATITIS A: (test code = 2552) (NOTE) INTERPRETATION HEPATITIS B: (test code = 11055) (NOTE) INTERPRETATION HEPATITIS C: (test code = 53535) (NOTE) VAGINAL PATHOGENS DNA [id number] 00:00:00* Test Item Value Reference Range Interpretation Comme nts CONNIE SPECIES (test code = ) NEGATIVE G. VAGINALIS (test code = ) NEGATIVE T. VAGINALIS (test code = ) NEGATIVE SARS-CoV-2 (COVID-19) by RT-PCR (HIGH RISK)2020-01-02 00:00:00* Test Item Value Reference Range Interpretation Comme nts SARS-CoV-2 INTERPRETATION (t est code = 45109) POSITIVE SOURCE (test code = 85643) NOT SPECIFIED PAP TEST, THINPREP, [id number] 00:00:00* Test Item Value Reference Range Interpretation Comme nts SOURCE: (test code = 8001) Cervical/Endo cervi driss SLIDES: (test code = 8011) 1 LMP: (test code = 8021) 10/28/2019 SPECIMEN ADEQUACY: (test code = 62714) (NOTE) INTERPRETATION: (test code = 49997) LSIL/EPITH. ABNORMALITY; SEE BELOW OTHER COMMENTS: (test code = 8081) (NOTE) HARVESTER OPERATOR: (test code = 8101) EMANUEL Sandy (ASCP) PATHOLOGIST INTERPRETATION BY: (test code = 8122) Nolan Shahid M.D. LOCATION: (test code = 01649) (NOTE) CPT: (test code = 8140) (NOTE) TRICHOMONAS, VAG SWAB, [id number] 00:00:00* Test Item Value Reference Range Interpretation Comme nts TRICHOMONAS, SIMPLESWAB (test code = 94666) TEST NOT PERFORMED GC AND CHLAMYDIA AMPLIFIED, [id number] 00:00:00* Test Item Value Reference Range Interpretation Comme nts GONORRHEA, TMA (test code = 66672) NEGATIVE CHLAMYDIA, TMA (test code = 31859) NEGATIVE VAGINAL PATHOGENS DNA [id number] 00:00:00* Test Item Value Reference Range Interpretation Comme nts CONNIE SPECIES (test code = ) NEGATIVE G. VAGINALIS (test code = 98488) NEGATIVE T. VAGINALIS (test code = 21820) NEGATIVE HPV HIGH RISK WITH GENOTYPE, [id number] 00:00:00* Test Item Value Reference Range Interpretation Comme nts HPV HIGH RISK INTERP (test c ode = 09229) POSITIVE HPV 16 (test code = 13561) NEGATIVE HPV 18 (test code = 97937) NEGATIVE HPV, HR, OTHER GENOTYPES (te st code = 16680) POSITIVE HIV AB/AG COMBO RFLX [id number] 00:00:00* Test Item Value Reference Range Interpretation Comme nts HIV 1/2 4TH GEN, RFLX CONF ( test code = 3514) NON-REACTIVE [id number] 00:00:00* Test Item Value Reference Range Interpretation Comme nts RPR RESULT (test code = 3501) NON-REACTIVE RPR TITER (test code = 3500) NOT INDIC. TITER [id number] 00:00:00* Test Item Value Reference Range Interpretation Comme nts RPR RESULT (test code = 3501) NON-REACTIVE RPR TITER (test code = 3500) NOT INDIC. TITER GALV ONLY - VAGINAL PATHOGENS BY DNA [id number] 19:29:00* Test Item Value Reference Range Interpretation Comme nts Trichomonas vaginalis (test code = 1525523790) Negative Negative Gardnerella vaginalis (test code = 8435838931) Negative Negative Connie species (test code = 7635245687) Positive Negative A Lab Interpretation (test cod e = 48131-3) [facility] BY DNA PROBE 2019-04-03 19:29:00* Test Item Value Reference Range Interpretation Comme nts Trichomonas vaginalis (test code = 5181439925) Negative Negative Gardnerella vaginalis (test code = 0124717715) Negative Negative Connie species (test code = 4080609875) Positive Negative A Lab Interpretation (test cod e = 57083-1) [facility] CHLAMYDIA AMPLIFIED [id number] 17:07:00* Test Item Value Reference Range Interpretation Comme nts C. trachomatis Nucleic Acid (test code = 25683-3) Negative Negative N. gonorrhoeae Nucleic Acid (test code = 20567-2) Negative Negative Lab Interpretation (test cod e = 29617-6) Normal [facility] CHLAMYDIA AMPLIFIED [id number] 17:07:00* Test Item Value Reference Range Interpretation Comme nts C. trachomatis Nucleic Acid (test code = 74141-5) Negative Negative N. gonorrhoeae Nucleic Acid (test code = 26505-0) Negative Negative Lab Interpretation (test cod e = 43969-5) [facility]A1C)2019-04-03 08:35:00* Test Item Value Reference Range Interpretation Comme nts HGB A1C (test code = 4548-4) 5.8 % 4-6 Lab Interpretation (test cod e = 85855-1) [facility]2019-04-03 08:35:00* Test Item Value Reference Range Interpretation Comme nts HGB A1C (test code = 4548-4) 5.8 % 4-6 Lab Interpretation (test cod e = 36720-1) [facility] 19:28:00* Test Item Value Reference Range Interpretation Comme nts APPEARANCE (test code = 6693101813) Clear Clear COLOR (test code = 6480257022) Straw Yellow A PH (test code = 7825509666) 4.8-8.0 SP GRAVITY (test code = 7763785894) 1.003-1.030 GLU U QUAL (test code = 2586444011) Normal Normal BLOOD (test code = 7788050669) 1+ Negative A KETONES (test code = 2492780594) 5 mg/dL Negative A PROTEIN (test code = 2887-8) Negative Negative UROBILIN (test code = 1908813283) Normal Normal BILIRUBIN (test code = 5712133737) Negative Negative NITRITE (test code = 9085299056) Negative Negative LEUK GENEVA (test code = 6073781167) Negative Negative RBC/HPF (test code = 7887276147) <1 See_Comment [Automated [employer]] The system which generated this result transmitted reference range: 0 - 3 HPF. The reference range was not used to interpret this result as normal/abnormal. WBC/HPF (test code = 6797905277) See_Comment [Automated [employer]] The system which generated this result transmitted reference range: 0 - 5 HPF. The reference range was not used to interpret this result as normal/abnormal. BACTERIA (test code = 8660120061) Few Negative A SQ EPITH (test code = 3934774533) See_Comment H [Automated [employer] ge] The system which generated this result transmitted reference range: <=2 HPF. The reference range was not used to interpret this result as normal/abnormal. Lab Interpretation (test code = 15625-8) [facility] 19:28:00* Test Item Value Reference Range Interpretation Comme nts APPEARANCE (test code = 5728569587) Clear Clear COLOR (test code = 4190133785) Straw Yellow A PH (test code = 9640150795) 4.8-8.0 SP GRAVITY (test code = 3554655217) 1.003-1.030 GLU U QUAL (test code = 3005896468) Normal Normal BLOOD (test code = 7566123818) 1+ Negative A KETONES (test code = 1767824974) 5 mg/dL Negative A PROTEIN (test code = 2887-8) Negative Negative UROBILIN (test code = 8456656632) Normal Normal BILIRUBIN (test code = 6967029243) Negative Negative NITRITE (test code = 2116440137) Negative Negative LEUK GENEVA (test code = 7029805915) Negative Negative RBC/HPF (test code = 5221929070) <1 See_Comment [Automated [employer] ge] The system which generated this result transmitted reference range: 0 - 3 HPF. The reference range was not used to interpret this result as normal/abnormal. WBC/HPF (test code = 0340007339) See_Comment [Automated [employer] ge] The system which generated this result transmitted reference range: 0 - 5 HPF. The reference range was not used to interpret this result as normal/abnormal. BACTERIA (test code = 0169288225) Few Negative A SQ EPITH (test code = 1708357806) See_Comment H [Automated [employer] ge] The system which generated this result transmitted reference range: <=2 HPF. The reference range was not used to interpret this result as normal/abnormal. Lab Interpretation (test code = 93588-9) [facility]IFIC [id number] 16:02:00* Test Item Value Reference Range Interpretation Comme nts POCT U SP GRAV (test code = 3255) 1.010 mg/dl 1.005-1.025 POCT PH U (test code = 3254) 6.0 mg/dl 5-8 POCT U LEUK EST (test code = 3263) neg Negative - Negative POCT U NIT (test code = 3262) neg Negative - Negative POCT U PROT (test code = 3259) neg Negative - Negative POCT U GLU (test code = 3256) neg Negative - Negative POCT U KETONE (test code = 3258) small Negative - Negative A POCT U UROBILI (test code = 3260) neg 0.2-1 POCT U BILI (test code = 3261) neg Negative - Negative POCT U BLD (test code = 3257) TRACE Hem Negative - Negative A POCT U COLOR (test code = 3266) yellow POCT U APPEAR (test code = 3267) hazy JEANINE (test code = JEANINE) accurate developme nt and interpretation of all internal controls Lab Interpretation (test code = 92704-0) Abnormal [facility] URINALYSIS W SPECIFIC [id number] 16:02:00* Test Item Value Reference Range Interpretation Comme nts POCT U SP GRAV (test code = 3255) 1.010 mg/dl 1.005-1.025 POCT PH U (test code = 3254) 6.0 mg/dl 5-8 POCT U LEUK EST (test code = 3263) neg Negative - Negative POCT U NIT (test code = 3262) neg Negative - Negative POCT U PROT (test code = 3259) neg Negative - Negative POCT U GLU (test code = 3256) neg Negative - Negative POCT U KETONE (test code = 3258) small Negative - Negative A POCT U UROBILI (test code = 3260) neg 0.2-1 POCT U BILI (test code = 3261) neg Negative - Negative POCT U BLD (test code = 3257) TRACE Hem Negative - Negative A POCT U COLOR (test code = 3266) yellow POCT U APPEAR (test code = 3267) hazy JEANINE (test code = JEANINE) accurate developme nt and interpretation of all internal controls Lab Interpretation (test code = 46633-5) Abnormal [facility] SIMPLEX CULTURE AND [id number] 00:00:00* Test Item Value Reference Range Interpretation Comme nts SPECIMEN SOURCE (test code = 03831) VAGINAL HERPES CULTURE (test code = 3533) POSITIVE HERPES SIMPLEX TYPE I (test code = 49042) NEGATIVE HERPES SIMPLEX TYPE II (test code = 10177) POSITIVE VAGINAL PATHOGENS DNA [id number] 00:00:00* Test Item Value Reference Range Interpretation Comme nts CONNIE SPECIES (test code = 90411) NEGATIVE G. VAGINALIS (test code = 93202) NEGATIVE T. VAGINALIS (test code = 20535) NEGATIVE COMPREHENSIVE METABOLIC [id number] 00:00:00* Test Item Value Reference Range Interpretation Comme nts GLUCOSE (test code = 2217) 82 MG/DL BUN (test code = 2208) 14 MG/DL CREATININE (test code = 2214) 0.57 MG/DL eGFR AMER. (test cod e = 21073) 137 ML/MIN/1.73 eGFR NON- AMER. (test code = 82576) 118 ML/MIN/1.73 CALC BUN/CREAT (test code = 2235) 25 RATIO SODIUM (test code = 2231) 143 MEQ/L POTASSIUM (test code = 2228) 4.3 MEQ/L CHLORIDE (test code = 2215) 105 MEQ/L CARBON DIOXIDE (test code = 2206) 27 MEQ/L CALCIUM (test code = 2209) 9.4 MG/DL PROTEIN, TOTAL (test code = 2229) 7.3 G/DL ALBUMIN (test code = 2201) 5.0 G/DL CALC GLOBULIN (test code = 2240) 2.3 G/DL CALC A/G RATIO (test code = 2234) 2.2 RATIO BILIRUBIN, TOTAL (test code = 2207) <0.2 MG/DL ALKALINE PHOSPHATASE (test code = 2204) 82 U/L AST (test code = 2218) 16 U/L ALT (test code = 2219) 21 U/L PAP TEST, THINPREP, [id number] 00:00:00* Test Item Value Reference Range Interpretation Comme nts SOURCE: (test code = 8001) Cervical/Endocervical SLIDES: (test code = 8011) 1 LMP: (test code = 8021) 12/23/2017 SPECIMEN ADEQUACY: (test code = 15330) (NOTE) INTERPRETATION: (test code = 70155) NILM/NO EPITH. 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: (test code = 8101) RAVINDER DÍAZ,CT([facility]) QC TECHNOLOGIST: (test code = 8111) Adebayo New,SCT([facility])IAC LOCATION: (test code = 01653) (NOTE) CPT: (test code = 8140) (NOTE) CBC W/AUTO [id number] 00:00:00* Test Item Value Reference Range Interpretation Comme nts WBC (test code = 1001) 8.7 K/UL RBC (test code = 1002) 4.55 M/UL HEMOGLOBIN (test code = 1003) 13.1 G/DL HEMATOCRIT (test code = 1004) 39.2 % MCV (test code = 1005) 86.2 fL MCH (test code = 1006) 28.8 PG MCHC (test code = 1007) 33.4 G/DL RDW (test code = 1038) 12.8 % NEUTROPHILS (test code = 1008) 64.0 % LYMPHOCYTES (test code = 1010) 28.4 % MONOCYTES (test code = 1011) 4.2 % EOSINOPHILS (test code = 1012) 2.8 % BASOPHILS (test code = 1013) 0.6 % PLATELET COUNT (test code = 1015) 326 K/UL CBC W/AUTO [id number] 00:00:00* Test Item Value Reference Range Interpretation Comme nts WBC (test code = 1001) 8.7 K/UL RBC (test code = 1002) 4.55 M/UL HEMOGLOBIN (test code = 1003) 13.1 G/DL HEMATOCRIT (test code = 1004) 39.2 % MCV (test code = 1005) 86.2 fL MCH (test code = 1006) 28.8 PG MCHC (test code = 1007) 33.4 G/DL RDW (test code = 1038) 12.8 % NEUTROPHILS (test code = 1008) 64.0 % LYMPHOCYTES (test code = 1010) 28.4 % MONOCYTES (test code = 1011) 4.2 % EOSINOPHILS (test code = 1012) 2.8 % BASOPHILS (test code = 1013) 0.6 % PLATELET COUNT (test code = 1015) 326 K/UL GC AND CHLAMYDIA AMPLIFIED, [id number] 00:00:00* Test Item Value Reference Range Interpretation Comme nts GONORRHEA, TMA (test code = 77059) NEGATIVE CHLAMYDIA, TMA (test code = 89529) NEGATIVE [id number] 00:00:00* Test Item Value Reference Range Interpretation Comme nts RPR RESULT (test code = 3501) NON-REACTIVE RPR TITER (test code = 3500) NOT INDIC. TITER [id number] 00:00:00* Test Item Value Reference Range Interpretation Comme nts RPR RESULT (test code = 3501) NON-REACTIVE RPR TITER (test code = 3500) NOT INDIC. TITER HIV AB/AG COMBO RFLX [id number] 00:00:00* Test Item Value Reference Range Interpretation Comme [facility] HIV 1/2 4TH GEN, RFLX CONF ( test code = 3514) NON-REACTIVE HPV HIGH RISK WITH GENOTYPE, [id number] 00:00:00* Test Item Value Reference Range Interpretation Comme [facility] HPV HIGH RISK INTERP (test c ode = 39052) NEGATIVE HPV 16 (test code = 87286) NEGATIVE HPV 18 (test code = 34256) NEGATIVE HPV, HR, OTHER GENOTYPES (te st code = 33660) NEGATIVE ACUTE HEPATITIS [id number] 00:00:00* Test Item Value Reference Range Interpretation Comme nts HEPATITIS A IgM (test code = 45885) NON-REACTIVE HEPATITIS B CORE IgM (test c ode = 4644) NON-REACTIVE HEPATITIS B SURF AG (test co de = 2739) NON-REACTIVE HEPATITIS C ANTIBODY (test c ode = 4675) NON-REACTIVE HCV INDEX (test code = 71629) 0.05 INTERPRETATION HEPATITIS A: (test code = 2552) (NOTE) INTERPRETATION HEPATITIS B: (test code = 20280) (NOTE) INTERPRETATION HEPATITIS C: (test code = 58139) (NOTE) VAGINAL PATHOGENS DNA PANEL [ADDED]2018-01-27 00:00:00* Test Item Value Reference Range Interpretation Comme nts CONNIE SPECIES (test code = 89531) POSITIVE G. VAGINALIS (test code = 60230) POSITIVE T. VAGINALIS (test code = 38666) NEGATIVE Notes Date/Time Note Provider Source 2022-08-28 09:03:50 AzLYbVMCir6adkoXTftD kkYFd5VCidYjqFN/ 9GAMQySFFmiLrc5IA+us4rdGijRl6934-94- 22T09:03:50 Rx sent to [facility] 74179-3Ptjxccakn encounter DctbSR1997-32-33G36:04:07Telephone encounter NoteTXT1.2.840.239006.1.13.104.2.7.2 .686289|[id number] for patient [id number] RJTKLOGQAFHUEVBKFIXAHU7785-12-95P74: 04:071.2.840.244647.1.72.3.15|1.2.84 0.579055.1.13.104.2.7.2.727879_18563 [address] [facility] 2022-08-27 20:40:04 LZRLP9ZkZmWkMrNc6Rfi yr+/tfadpgunyjAM UPQp1A37UZxT9BES6nIx8quAePe93350-29- 21T20:40:04 Harmony Ritter is a 41 year old femalePatient calling to have medications called in moved [facility] [phone] (DIFLUCAN) 150 mg tabletphenazopyridine (PYRIDIUM) 200 mg tablet 60259-0Rgpjbuwup encounter WptnAF1501-88-17V33:42:15Telephone encounter NoteTXT1.2.840.811122.1.13.104.2.7.2 .002308|[id number] for patient [id number] Alivia Angela[id number] RSSDQDGZIOWDLPNZUUQQID1809-05-08R56: 42:151.2.840.458396.1.72.3.15|1.2.84 0.710024.1.13.104.2.7.2.727879_18561 537[address]May Cruz [facility] 2022-08-27 19:40:00 WELUTzdLGnUVPbXKc85J 3GKcsKZicKejQ2NS AI79/sqQHfVLW5+6Z1Way5bsJyvs8274-97- 21T19:40:00 Addended by: RAJ VALDIVIA on: 08/27/2022 08:59 PM Modules accepted: Orders 18860-0Twyxmgwm XvqccvapBL5003-89-87H15:59:05Addsrinivas AguilarTXT1.2.840.553281.1.13.104.2 .7.2.547225|[id number] for patient care[address] Vk[id number] VENPAGMBPQEKIGOFRATIAM1251-56-14M24: 59:051.2.840.940021.1.72.3.15|1.2.84 0.918386.1.13.104.2.7.2.727879_18561 [address] [facility]"
[2023-04-01 20:45] LABS: Absolute Lymphocytes (CBC) 3.7 K/uL (0.7-4.9); Hematocrit 36.5 % (36.0-45.0); Lymphocytes % 30.3 % (15.3-44.8); MCV 86.7 fL (80-100); MPV 7.9 fL (7.6-11.3); Platelets 328 thou/uL (152-406); RBC Red Blood Cell Count 4.21 M/uL (3.86-4.86)
[2023-04-01 20:56] LABS: Specific Gravity 1.016 (1.005-1.030); Urine Bacteria <20 /HPF (<20); Urine Bilirubin NEGATIVE (Negative); Urine Blood Negative (Negative); Urine Clarity Extremely Turbid (Clear); Urine Color Light-Yellow (Yellow); Urine Glucose NEGATIVE (Negative); Urine Mucus Slight /HPF (None Seen); Urine Protein NEGATIVE (Negative); Urine RBC <5 /HPF (None Seen); Urine Urobilinogen Normal (Normal); Urine pH 5.5 (5.0-7.0)
[2023-04-01 21:15] LABS: Albumin 3.6 g/dL (3.4-5.0); Bilirubin Total 0.2 mg/dL (0.2-1.0); Protein, Total 7.6 g/dL (6.4-8.2)
[2023-04-01 21:17] LABS: Potassium 3.7 mEq/L (3.5-5.1)
--- NOTE | 2023-04-01 22:24 | RAD REPORT ---
EXAM DESCRIPTION: CT - Abdomen Pelvis W Contrast - 04/01/2023 9:37 pm CLINICAL HISTORY: ABD PAIN COMPARISON: Abdomen Pelvis W Contrast dated 01/08/2018; Chest For Pe Angio dated 05/14/2022 TECHNIQUE: Thin cut axial CT imaging of the abdomen and pelvis was performed following intravenous a dministration of 95 Isovue 300. Multiplanar reformats were generated and reviewed. All CT scans are performed using dose optimization technique as appropriate and may include automated exposure control or mA/KV adjustment according to patient size. FINDINGS: No suspicious findings in the lung bases. The liver shows a well-circumscribed fluid density 1.7 cm left liver lobe lesion most suggestive of a cyst. Spleen, adrenal glands, and pancreas show no suspicious findings. Gallbladder and biliary tree are also without suspicious finding. Symmetric renal function is seen with no hydronephrosis or suspicious renal mass. Right interpolar pa rapelvic 1.8 cm fluid density cyst. Mildly prominent small bowel loop at the level of a surgical suture line in the right upper quadrant, suggestive of an enteroenteric anastomosis. Mild wall prominence of small bowel in the left flank, n onspecific. No other dilated bowel loops or bowel wall thickening. No free air, free fluid or inflamm atory stranding. No suspicious mass or bulky lymphadenopathy. Supraumbilical hernia with broad neck measuring 8.2 cm in transverse diameter, containing a short seg ment of transverse colon. Laparotomy scar seen below this level. Left adnexal 3.2 cm dominant cyst or follicle, likely physiologic. The urinary bladder is without significant finding. No suspicious bony findings. IMPRESSION: Supraumbilical hernia with broad neck containing a short segment of transverse colon. Th is may be at the superior extent laparotomy scar. Nonspecific mild wall prominence of small bowel in the left flank. This could relate to infectious or inflammatory enteritis. Other incidental findings as above.
--- NOTE | 2023-04-01 23:06 | ER ---
Nurse's Notes [facility] Name: Bran Garner Age: 42 yrs Sex: Female : 1980 Arrival Date: 04/01/2023 Time: 18:53 Bed 12 Private MD: Diagnosis: Other specified abdominal hernia without obstruction or gangrene-supraumbilical Presentation: 04/01 19:24 Chief complaint: Patient states: Upper abdominal pain with large bump increasing in ll1 size for 3 days. No fever. Coronavirus screen: Client denies travel out of the [place] in the last 14 days. At this time, the client does not indicate any symptoms associated with coronavirus-19. Ebola Screen: Patient denies travel to an Ebola-affected area in the 21 days before illness onset. Initial Sepsis Screen: Does the patient meet any 2 criteria? No. Patient's initial sepsis screen is negative. Does the patient have a suspected source of infection? Yes: Acute abdominal pain. Risk Assessment: Do you want to hurt yourself or someone else? Patient reports no desire to harm self or others. Onset of symptoms was March 29, 2023. 19:24 Method Of Arrival: Ambulatory ll1 19:24 Acuity: JUSTEN 3 ll1 Triage Assessment: 19:26 General: Appears uncomfortable, Behavior is calm, cooperative, appropriate for age. ll1 Pain: Complains of pain in abdomen Pain currently is 3 out of 10 on a pain scale. Quality of pain is described as aching. GI: Reports upper abdominal pain. 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 - Social history:: Smoking status: Patient denies any tobacco usage or history of. Screenin:20 [facility] ED Fall Risk Assessment (Adult) History of falling in the last 3 months, cm10 including since admission No falls in past 3 months (0 pts) Confusion or Disorientation No (0 pts) Intoxicated or Sedated No (0 pts) Impaired Gait No (0 pts) Mobility Assist Device Used No (0 pt) Altered Elimination No (0 pt) Score/Fall Risk Level 0 - 2 = Low Risk Oriented to surroundings, Maintained a safe environment, Hourly rounding (assess needs \T\ fall precautionary measures) done. Abuse screen: Denies threats or abuse. Denies injuries from another. Nutritional screening: No deficits noted. Tuberculosis screening: No symptoms or risk factors identified. Assessment: 20:20 General: Appears in no apparent distress. comfortable, Behavior is calm, cooperative. cm10 Pain: Complains of pain in abdomen Pain currently is 3 out of 10 on a pain scale. Neuro: No deficits noted. Level of Consciousness is awake, alert, obeys commands, Oriented to person, place, time, situation. Cardiovascular: No deficits noted. Capillary refill < 3 seconds Patient's skin is warm and dry. Respiratory: No deficits noted. Airway is patent Respiratory effort is even, unlabored, Respiratory pattern is regular, symmetrical. GI: No deficits noted. Abdomen is non-distended, Bowel sounds present X 4 quads. Abd is soft and non tender X 4 quads. Reports upper abdominal pain. : No deficits noted. No signs and/or symptoms were reported regarding the genitourinary system. EENT: No deficits noted. No signs and/or symptoms were reported regarding the EENT system. Derm: No deficits noted. No signs and/or symptoms reported regarding the dermatologic system. Skin is intact, Skin is pink, warm \T\ dry. Musculoskeletal: No deficits noted. No signs and/or symptoms reported regarding the musculoskeletal system. Range of motion: intact in all extremities. 22:00 Reassessment: Patient appears in no apparent distress at this time. No changes from vc1 previously documented assessment. Patient and/or family updated on plan of care and expected duration. Pain level reassessed. 23:37 Reassessment: Patient and/or family updated on plan of care and expected duration. Pain vc1 level reassessed. Patient is alert, oriented x 3, equal unlabored respirations, skin warm/dry/pink. Patient states feeling better. Patient states symptoms have improved. General: applied abdominal binder.. General:. Vital Signs: 19:24 BP 139 / 79; Pulse 77; Resp 16; Temp 98.7; Pulse Ox 99% ; Weight 68.04 kg; Height 4 ft. ll1 0 in. ; Pain 3/10; 20:38 BP 134 / 74; Pulse 77; Resp 16; Pulse Ox 100% ; Pain 3/10; cm10 23:00 BP 128 / 72; Pulse 78; Resp 16; Pulse Ox 99% ; vc1 19:24 Body Mass Index 45.77 (68.04 kg, 121.92 cm) ll1 19:24 Pain Scale: Adult ll1 20:38 Pain Scale: Adult cm10 ED Course: 18:56 Patient arrived in ED. rg4 18:59 Arm band placed on. as6 19:26 Triage completed. ll1 19:35 Talat Canchola PA is PHCP. cp 19:35 Memo Calixto MD is Attending Physician. cp 20:20 Jada Nayak, PRISCILA is Primary Nurse. cm10 20:20 Patient has correct armband on for positive identification. Placed in gown. Bed in low cm10 position. Call light in reach. Side rails up X2. Provided Education on: ER process and procedures. . Pulse ox on. NIBP on. Door closed. Warm blanket given. 20:38 Initial lab(s) drawn, by me, sent to lab. Urine collected: clean catch specimen, clear. cm10 Inserted saline lock: 20 gauge in right antecubital area, using aseptic technique. Blood collected. 20:38 CBC with Diff Sent. cm10 20:38 Lipase Sent. cm10 20:38 CMP Sent. cm10 20:38 Urinalysis w/ reflexes Sent. cm10 21:39 CT Abd/Pelvis - IV Contrast Only In Process Unspecified. EDMS 22:00 Report received from PRISCILA Elias. vc1 23:40 No provider procedures requiring assistance completed. IV discontinued, intact, vc1 bleeding controlled, No redness/swelling at site. Pressure dressing applied. Administered Medications: No medications were administered Medication: 20:20 VIS not applicable for this client. cm10 Outcome: 23:06 Discharge ordered by . cp 23:40 Discharged to home ambulatory, vc1 23:40 Condition: good 23:40 Discharge instructions given to patient, Instructed on discharge instructions, follow up and referral plans. Demonstrated understanding of instructions, follow-up care, 23:40 Patient left the ED. vc1 Signatures: Dispatcher [employer] EDIN Talat Canchola PA PA cp Garcia, Rubi rg4 Terra Solis RN RN ll1 Ronald Montero, RN RN as6 Hiral Mccoy, RN RN vc1 Jada Nayak, RN RN cm10
--- NOTE | 2023-04-01 23:07 | EDPHYS ---
Physician Documentation [facility] Name: Bran Garner Age: 42 yrs Sex: Female : 1980 Arrival Date: 04/01/2023 Time: 18:53 Bed 12 Private MD: ED Physician Memo Calixto HPI: 04/01 21:00 This 42 yrs old Female presents to ER via Ambulatory with complaints of Bump cp on Abdomen. 21:00 The patient presents with abdominal pain in the upper abdomen, abdominal swelling. cp Onset: The symptoms/episode began/occurred 3 week(s) ago, and became worse 3 day(s) ago. The symptoms do not radiate. Associated signs and symptoms: Pertinent negatives: blood in stools, chest pain, constipation, diarrhea, fever, shortness of breath, vomiting. 21:00 The symptoms are described as waxing/waning. Modifying factors: the symptoms are cp aggravated by coughing. 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 - Social history:: Smoking status: Patient denies any tobacco usage or history of. ROS: 21:05 Eyes: Negative for injury, pain, redness, and discharge, cp 21:05 Constitutional: Negative for body aches, chills, fever, poor PO intake, 21:05 ENT: Negative for drainage from ear(s), ear pain, sore throat, difficulty swallowing, difficulty handling secretions, 21:05 Cardiovascular: Negative for chest pain, edema, palpitations, 21:05 Respiratory: Negative for cough, shortness of breath, wheezing, 21:05 Abdomen/GI: Positive for abdominal pain, of the upper abdominal swelling, Negative for nausea, vomiting, and diarrhea, anorexia, 21:05 Back: Negative for pain at rest, pain with movement, 21:05 Neuro: Negative for altered mental status, dizziness, headache, syncope, weakness, 21:05 All other systems are negative, cp Exam: 21:10 Constitutional: The patient appears in no acute distress, alert, awake, cp non-diaphoretic, non-toxic, well developed, well nourished, 21:10 Head/Face: Normocephalic, atraumatic. cp 21:10 Eyes: Periorbital structures: appear normal, Conjunctiva: normal, no exudate, no injection, Sclera: no appreciated abnormality, Lids and lashes: appear normal, bilaterally, 21:10 ENT: External ear(s): are unremarkable, Nose: is normal, Mouth: Lips: moist, Oral mucosa: pink and intact, moist, Posterior pharynx: is normal, airway is patent, no erythema, no exudate, 21:10 Chest/axilla: Inspection: normal, 21:10 Cardiovascular: Rate: normal, Rhythm: regular, Edema: is not appreciated, JVD: is not appreciated, 21:10 Respiratory: the patient does not display signs of respiratory distress, Respirations: normal, no use of accessory muscles, no retractions, labored breathing, is not present, Breath sounds: are clear throughout, no decreased breath sounds, no stridor, no wheezing, 21:10 Abdomen/GI: Inspection: mid line scar, Bowel sounds: active, all quadrants, Palpation: soft, in all quadrants, mild abdominal tenderness, in the right upper quadrant and left upper quadrant, rebound tenderness, is not appreciated, involuntary guarding, is not appreciated, Hernia: noted in the paraumbilical area, incarceration, is not appreciated, tenderness, that is mild, reducible, 21:10 Back: pain, is absent, ROM is normal, 21:10 Neuro: Orientation: to person, place \T\ time. Mentation: is normal, Vital Signs: 19:24 BP 139 / 79; Pulse 77; Resp 16; Temp 98.7; Pulse Ox 99% ; Weight 68.04 kg; Height 4 ft. ll1 0 in. ; Pain 3/10; 20:38 BP 134 / 74; Pulse 77; Resp 16; Pulse Ox 100% ; Pain 3/10; cm10 23:00 BP 128 / 72; Pulse 78; Resp 16; Pulse Ox 99% ; vc1 19:24 Body Mass Index 45.77 (68.04 kg, 121.92 cm) ll1 19:24 Pain Scale: Adult ll1 20:38 Pain Scale: Adult cm10 MDM: 19:35 Patient medically screened. cp 21:00 Differential diagnosis: appendicitis, bowel obstruction, cholecystitis, Cholelithiasis, cp pancreatitis, Peptic Ulcer Disease, Perf. Duodenal Ulcer, Perf. Gastric Ulcer, Pyelonephritis, Ureterolithiasis, urinary tract infection. 23:06 Data reviewed: vital signs, nurses notes, lab test result(s), radiologic studies, CT cp scan. 23:06 Counseling: I had a detailed discussion with the patient and/or guardian regarding the cp historical points, exam findings, and any diagnostic results supporting the discharge/admit diagnosis, lab results, radiology results, the need for outpatient follow up, for definitive care, a general surgeon, to return to the emergency department if symptoms worsen or persist or if there are any questions or concerns that arise at home. Response to treatment: the patient's symptoms have mildly improved after treatment, and as a result, I will discharge patient. Special discussion: Based on the patient's Hx, exam, and Dx evaluation, there is no indication for emergent surgery or inpatient Tx. It is understood by the patient/guardian that if the Sx's persist or worsen they need to return immediately for re-evaluation. 04/01 20:14 Order name: CBC with Diff; Complete Time: 22:26 cp 04/01 20:14 Order name: CMP; Complete Time: 22:26 cp 04/01 23:06 Interpretation: Normal except: CL 108. cp 04/01 20:14 Order name: Lipase; Complete Time: 22:26 cp 04/01 20:14 Order name: Urinalysis w/ reflexes; Complete Time: 22:26 cp 04/01 21:03 Order name: CT Abd/Pelvis - IV Contrast Only; Complete Time: 22:26 cp 04/01 20:14 Order name: IV Saline Lock; Complete Time: 20:38 cp 04/01 20:14 Order name: Labs collected and sent; Complete Time: 20:38 cp Administered Medications: No medications were administered Disposition Summary: 04/01/23 23:06 Discharge Ordered Notes: Location: Home cp Problem: new cp Symptoms: have improved cp Condition: Stable cp Diagnosis - Other specified abdominal hernia without obstruction or gangrene - supraumbilical cp Followup: cp - With: Private Physician - When: 2 - 3 days - Reason: Recheck today's complaints Discharge Instructions: - Discharge Summary Sheet cp - Hernia, Adult cp Forms: - Medication Reconciliation Form cp - Thank You Letter cp - Antibiotic Education cp - Prescription Opioid Use cp - Patient Portal Instructions cp - Leadership Thank You Letter cp Signatures: Dispatcher [employer] EDTN Talat Canchola PA PA cp Terra Solis, RN RN ll1 Ronald Montero, RN RN as6 Corrections: (The following items were deleted from the chart) 20:29 20:14 Test, Urine+UC.LAB.BRZ ordered. EDTN EDMS 04/02 23: 22:55 Abdomen/GI: Positive for abdominal pain, of the upper abdominal swelling, cp Negative for nausea, vomiting, and diarrhea, anorexia, cp 23: 22:55 Constitutional: Negative for body aches, chills, fever, poor PO intake, cp cp 23: 22:55 Cardiovascular: Negative for chest pain, edema, palpitations, cp cp 23: 22:55 Respiratory: Negative for cough, shortness of breath, wheezing, cp cp 23: 22:55 Back: Negative for pain at rest, pain with movement, cp cp 23: 22:55 Eyes: Negative for injury, pain, redness, and discharge, cp cp 23:01 22:55 ENT: Negative for drainage from ear(s), ear pain, sore throat, difficulty cp swallowing, difficulty handling secretions, cp 23:01 22:55 Neuro: Negative for altered mental status, dizziness, headache, syncope, cp weakness, cp
[2023-04-02] VITALS: BP 128/72; TEMP 98.7; O2SAT 99
== END ==
LOC: ER 18:53
DX: K45.8 Other specified abdominal hernia without obstruction or gangrene (principal)
CPT/HCPCS: 85025; 81001; 36415; 83690; 80053; 74177; Q9967

== ENCOUNTER 2024-06-06 16:00 | Observation (INO) | payer BC ==
--- OUTSIDE RECORDS SUMMARY | 2024-06-06 16:16 | XMS REPORT | Continuity of Care Document ---
Author Name Unknown Address [address] [facility] [address] [place] [address] [facility] Address [address] [facility] [address] [place] [address] Care Team Providers Care Target Man Name Role Phone Tam Mcclelland Primary Care Physician Nereida Gonzalez Attending Clinician Unavail able LJ VILLARREAL Attending Clinician Unavailable LJ VILLARREAL Attending Clinician Unavailable Kingsley Yang Attending Clinician [phone] Unknown, Attending Attending Clinician Unavailab KINGSLEY Pichardo Attending Clinician Unavailable Doctor Unassigned, [place] Attending Clinician U BERE Riley Attending Clinician Unavaillilia Hooker MD, Bere Ren Attending Clinician [phone] BUNNY MENON Attending Clinician Unavailable Maira MAYES, Bunny Attending Clinician [phone] MIKE MASTERS Attending Clinician Unavail Mike Carmona MD Attending Clinician +- [phone] Berlin Sow MD Attending Clinician [phone] NICHOLE FLOR Attending Clinician UnavailNICHOLE Jones Attending Clinician Unavailcesar fuentes Doctor Unassigned, [place] Attending Clinician U Miek Bhatia MD Attending Clinician [phone] Debbie Marks MD Attending Clinician [phone] DEBBIE MARKS Attending Clinician Unavailable [email or web address]_S Attending Clinician Unavailcesar Bey RN, Radha Bunch Attending Clinician [phone] Joan MAYES, Rahul Attending Clinician [phone] Asmita Kiser DO Attending Clinician [phone] Sid MAYES, Rhona Attending Clinician + [phone] Pedrito MAYES, Toya Attending Clinician [phone] Saw MAYES, Charmaine Attending Clinician [phone] David MAYES, Daksha Guerrero Attending Clinician [phone] Rafael Lux CRNA Attending Clinician [phone] RHONA LAU Attending Clinician Tiburcio jorge 2, [facility] Attending Clinician Unavailable MIR ROBBINS Attending Clinician Unavailable Unknown, Attending Attending Clinician Unavailab Mir Benjamin PA-C Attending Clinician [phone] Ricco Rust Attending Clinician [phone] RICCO DAIGLE Attending Clinician Unavail able RAJ VALDIVIA Attending Clinician Unavailable Raj Masterson Attending Clinician [phone] ELIZABETH ROSALES Attending Clinician Unavail able Elizabeth Rosales MD Attending Clinician [phone] Janelle Bray MA Attending Clinician Unavailabl UYEN Osorio Attending Clinician Unavailab UYEN Crane Attending Clinician Unavailab LURDES Jay Attending Clinician Unavail able Shayy WHLurdes GALDAMEZ Attending Clinician + Michael Ochoa MD Attending Clinician [phone] MIKE MASTERS Admitting Clinician Unavail able [email or web address]_S Admitting Clinician Unavailcesar Masters MD, Mike Mabry Admitting Clinician [phone] Pedrito MAYES, Toya Admitting Clinician [phone] TOYA MAJOR Admitting Clinician Unavailable RHONA LAU Admitting Clinician NICHOLE Adorno Admitting Clinician Mary Grace ble Payers Payer Name Policy Type Policy Number Effective Date Expirati on Date Source [facility] [id number] 2022 00:00:00 [facility] 6 [id number] 2023 00:00:00 [facility] 6 [id number] [facility] [place] [facility] (PP[place]) [id number] 2022 00:00:00 Problems Condition Name Condition Details Condition Category Status Onset Date Resolution Date Last Treatment Date Treating Clinician Comments Source Ventral hernia without obstructio n or gangrene Ventral hernia without obstructio n or gangrene Disease Active 04-15 00:00: 00 [facility] 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 Disease Active 2022-02 2 00:00: 00 [facility] Generalize d abdominal pain Generalize d abdominal pain Disease Active 2022-02 00:00: 00 [facility] Post-opera tive state Post-opera tive state Disease Active 2022-02 00:00: 00 [facility] S/P laparoscop ic assisted vaginal hysterecto my ([facility]) S/P laparoscop ic assisted vaginal hysterecto my ([facility]) Disease Active 2022-02 00:00: 00 [facility] Pain pelvic Pain pelvic Disease Active 2022-02 0 00:00: 00 [facility] MARIA C (stress urinary incontinen ce, female) MARIA C (stress urinary incontinen ce, female) Disease Active 2022-02 00:00: 00 [facility] Dyspareuni a, female Dyspareuni a, female Disease Active 10-19 00:00: 00 [facility] Adenomyosi s Adenomyosi s Disease Active 2023-0 9-12 00:00: 00 [facility] Herpes, vulvar Herpes, vulvar Disease Active 8-22 00:00: 00 [facility] Stress incontinen ce Stress incontinen ce Disease Active 04-06 00:00: 00 [facility] Recurrent candidiasi s of vagina Recurrent candidiasi s of vagina Disease Active 04-06 00:00: 00 [facility] Other hemorrhoid s Other hemorrhoid s Disease Active 04-06 00:00: 00 [facility] HSV-2 infection HSV-2 infection Disease Active 2015-02 00:00: 00 [facility] Overweight Overweight Disease Active 2015-02 00:00: 00 [facility] Atypical squamous cell changes of undetermin ed significan ce (ASCUS) on cervical cytology with 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 virus (HPV) Atypical squamous cell changes of undetermin ed significan ce (ASCUS) on cervical cytology with 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 virus (HPV) Disease Active 2015-02 00:00: 00 Overview: See scanned records 04/2015 [facility] [id number] BMI 32.0-32.9, adult Problem [facility] [id number] S/P small bowel resection Problem [facility] [id number] S/P hysterecto my Problem [facility] [id number] Vitamin D deficiency Problem [facility] [id number] Mixed stress and urge urinary incontinen ce Problem [facility] [id number] Hyperchole sterolemia Problem [facility] [id number] Primary insomnia Problem [facility] [id number] H/O section Problem [facility] [id number] Gastroesop hageal reflux disease without esophagiti s Problem [facility] [id number] Other obesity due to excess calories Problem [facility] Atypical squamous cell changes of undetermin ed significan ce (ASCUS) on cervical cytology with 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 See scanned records 04/2015 [facility] Excessive growth affecting management of in third trimester, single or unspecifie d fetus Excessive growth affecting management of in third trimester, single or unspecifie d fetus Disease Resolve d 2022-0 3-03 00:00: 00 2022-10-19 00:00:00 2022-10-19 13:48:01 [facility] Hymen abnormalit y Hymen abnormalit y Disease Resolve d 0 2-28 00:00: 00 2022-10-19 00:00:00 2022-10-19 13:47:47 [facility] Dysuria Dysuria Disease Resolve d 0 2-28 00:00: 00 2022-10-19 00:00:00 2022-10-19 13:47:30 [facility] Vaginal discharge Vaginal discharge Disease Resolve d 2022-0 2-28 00:00: 00 2022-10-19 00:00:00 2022-10-19 13:47:46 [facility] Well woman exam with routine gynecologi driss exam Well woman exam with routine gynecologi driss exam Disease Resolve d 2022-0 2-28 00:00: 00 2022-10-19 00:00:00 2022-10-19 13:47:28 [facility] Yeast infection Yeast infection Disease Resolve d 2-25 00:00: 00 2022-10-19 00:00:00 2022-10-19 13:47:38 [facility] Folliculit is Folliculit is Disease Resolve d 2-25 00:00: 00 2022-10-19 00:00:00 2022-10-19 13:47:37 [facility] Well woman exam Well woman exam Disease Resolve d 2015-02 00:00: 00 2022-10-19 00:00:00 2022-10-19 13:47:20 [facility] Vaginal laceration , initial encounter Vaginal laceration , initial encounter Disease Resolve d 11-04 00:00: 00 2022-10-19 00:00:00 2022-10-19 13:47:50 [facility] GDM (gestation al diabetes mellitus) GDM (gestation al diabetes mellitus) Disease Resolve d 09-02 00:00: 00 2022-10-19 00:00:00 2022-10-19 13:47:21 Overview: Formattin g of this note might be different from the original. A2GDM- glyburide 2012 BWt= 4508 US- 10/26 [facility] Susceptibl e to Varicella (non-immun e), currently in third trimester Susceptibl e to Varicella (non-immun e), currently in third trimester Disease Resolve d 08-19 00:00: 00 2022-10-19 00:00:00 2022-10-19 13:47:24 [facility] care and examinatio n of lactating mother care and examinatio n of lactating mother Disease Resolve d 11-04 00:00: 00 2015-12-18 00:00:00 2015-12-18 10:51:55 [facility] Anemia, Anemia, Disease Resolve d 11-02 00:00: 2015-12-18 00:00:00 2015-12-18 10:51:50 [facility] (spontaneo us vaginal delivery) (spontaneo us vaginal delivery) Disease Resolve d 11-02 00:00: 00 2015-11-05 00:00:00 2015-11-05 09:51:47 [facility] Normal (single liveborn) Normal (single liveborn) Disease Resolve d 11-02 00:00: 00 2015-11-05 00:00:00 2015-11-05 09:51:35 [facility] Measles, mumps, rubella (MMR) vaccinatio n status unknown Measles, mumps, rubella (MMR) vaccinatio n status unknown Disease Resolve d 11-02 00:00: 00 2015-11-05 00:00:00 2015-11-05 09:51:31 [facility] Maternal varicella, non-immune Maternal varicella, non-immune Disease Resolve d 11-02 00:00: 00 2015-11-05 00:00:00 2015-11-05 09:51:45 [facility] 39 weeks gestation of 39 weeks gestation of Disease Resolve d 10-31 00:00: 00 2015-11-05 00:00:00 2015-11-05 09:51:12 [facility] Sciatica, right Sciatica, right Disease Resolve d 09-02 00:00: 00 2015-11-05 00:00:00 2015-11-05 09:51:38 [facility] Antepartum anemia in third trimester Antepartum anemia in third trimester Disease Resolve d 08-19 00:00: 00 2015-11-05 00:00:00 2021-08-23 00:41:22 [facility] Abnormal maternal glucose tolerance, antepartum Abnormal maternal glucose tolerance, antepartum Disease Resolve d 08-19 00:00: 00 2015-11-05 00:00:00 2015-11-05 09:51:15 [facility] High-risk , second trimester [O09.92] High-risk , second trimester [O09.92] Disease Resolve d 07-13 00:00: 00 2015-11-05 00:00:00 2021-08-23 00:40:55 [facility] Insufficie nt care, second trimester [O09.32] Insufficie nt care, second trimester [O09.32] Disease Resolve d 07-13 00:00: 00 2015-11-05 00:00:00 2015-11-05 09:51:26 [facility] Multiparit y Multiparit y Disease Resolve d 07-13 00:00: 00 2015-11-05 00:00:00 2015-11-05 09:51:34 [facility] Allergies, Adverse Reactions, Alerts Allergy Name Allergy Type Status Severity Reaction(s) Onset Date Inactive Date Treating Clinician Comments Source NO KNOWN ALLERGIE S Drug Class Active [facility] Family History Family Member Diagnosis Comments Start Date Stop Date Sourc e [facility]aternal grandfather Hypertension [facility] Natural mother Cervical Cancer [facility] Natural [facility] Hy[facility] Social History Social Habit Start Date Stop Date Quantity Comments Source ASSERTION Not [facility] Gender identity [facility] History of Tobacco Use [facility] Sex Assigned At [facility] Alcoholic beverage intake 2024-02-17 00:00:00 2024-02-17 00:00:00 Current drinker of alcohol (finding) [facility] Alcohol intake 2023-03-24 00:00:00 2023-03-24 00:00:00 Current drinker of alcohol (finding) [facility] History of Social function 2022-12-16 00:00:00 2022-12-16 00:00:00 [facility] Tobacco use and exposure 2022-10-29 00:00:00 2022-10-29 00:00:00 Smokeless tobacco non-user [facility] Exposure to SARS-CoV-2 (event) 2022-04-06 00:00:00 2022-04-16 08:40:00 Not sure [facility] Alcohol Comment 2022-04-16 00:00:00 2022-04-16 00:00:00 occasionally [facility] Smoking Status Start Date Stop Date Source Never smoked tobacco [facility] Medications Ordered Medication Name Filled Medication Name Start Date Stop Date Current Medication? Ordering Clinician Indication Dosage Frequency Signature (SIG) Comments Components Source nirmatrelvi r-ritonavir (PAXLOVID) 300 mg (150 mg x 2)-100 mg tablet 05-25 00:00: 00 Yes [id number] 3{tbl} Take 3 tablets by mouth in the morning and 3 tablets in the evening. [facility] promethazin e-dextromet horphan 6.25-15 mg/5 mL syrup 4-18 00:00: 00 06-05 04:59 :00 Yes [id number] 10mL Take 10 mL by mouth 4 (four) times daily for 10 days. [facility] Eszopiclone 3 MG Eszopiclone 3 MG 2023-02 2- 00:00: 00 No 1{table t_immed iately_ before_ bedtime } QD Eszopiclon e 3 MG iopamidol (ISOVUE 370-500 mL) injection 80 mL 2023-02 16:15: 00 12-13 15:26 :00 No [id number] 80mL 80 mL, Intravenou s, ONCE, 1 dose, On Tue12/14/23 at 1015, Routine [facility] Tamsulosin HCl 0.4 MG Tamsulosin HCl 0.4 MG 2023-02 0-09 00:00: 00 No 1{capsu le} QD Tamsulosin HCl 0.4 MG Vitamin D3 125 MCG (5000 UT) Vitamin D3 125 MCG (5000 UT) 2023-02 0-09 00:00: 00 No 1{table t} QD Vitamin D3 125 MCG (5000 UT) Sulfamethox azole-Trime thoprim 800-160 MG Sulfamethox azole-Trime thoprim 800-160 MG 9-26 00:00: 00 No 1{table t} BID Sulfametho xazole-Tri methoprim 800-160 MG Phentermine HCl 15 MG Phentermine HCl 15 MG 6-07 00:00: 00 No 1{capsu le} QD Phentermin e HCl 15 MG metFORMIN HCl ER 500 MG metFORMIN HCl ER 500 MG 3- 00:00: 00 No 1{table t_with_ evening _meal} QD metFORMIN HCl ER 500 MG terconazole 0.8 % vaginal cream 3-03 00:00: 00 04-13 05:59 :00 No [id number] 1{appli cator} Insert 1 Applicator into vagina at bedtime for 3 days. [facility] Pantoprazol e Sodium 40 MG Pantoprazol e Sodium 40 MG 02-25 00:00: 00 No 1{table t} QD Pantoprazo le Sodium 40 MG zolpidem (AMBIEN) 10 mg tablet 02-10 00:00: 00 Yes [id number] 10mg Take 1 tablet by mouth at bedtime as needed for Insomnia. [facility] pantoprazol e 40 mg EC tablet 02-10 00:00: 00 Yes [id number] 40mg Take 1 tablet by mouth in the morning. [facility] simethicone 80 mg chewable tablet 2022-02 00:00: 00 Yes [id number] 160mg Take 2 tablets by mouth after meals and at bedtime. [facility] methocarbam oL 1,000 mg Tab 2022-02 00:00: 00 01-28 00:00 :00 No [id number] 1000mg Take 1,000 mg by mouth every 8 (eight) hours. [facility] Total Parenteral Nutrition Adult 2022-02 03:00: 00 01-18 16:59 :00 No at 84-168 mL/hr, 2,184 mL, TPN CYCLIC, Starting on Tue01/17/23 at 2100, Until Tue01/18/23 at 1059 [facility] iopamidol (ISOVUE 370-500 mL) injection 30 mL 2022-02 18:53: 00 01-17 18:53 :00 No [id number] 30mL 30 mL, Oral, ONCE, 1 dose, On Tue01/17/23 at 1315, Routine [facility] Total Parenteral Nutrition Adult 2022-02 03:00: 00 01-17 16:59 :00 No at 84-168 mL/hr, 2,184 mL, TPN CYCLIC, Starting on Tue01/16/23 at 2100, Until Tue01/17/23 at 1059 [facility] Total Parenteral Nutrition Adult 2022-02 03:00: 00 01-16 16:59 :00 No at 84-168 mL/hr, 2,184 mL, TPN CYCLIC, Starting on 01/15/23 at 2100, Until 01/16/23 at 1059 [facility] Total Parenteral Nutrition Adult 2022-02 03:00: 00 01-15 16:59 :00 No at 84-168 mL/hr, 2,184 mL, TPN CYCLIC, Starting on 01/14/23 at 2100, Until 01/15/23 at 1059 [facility] Total Parenteral Nutrition Adult 2022-02 03:00: 00 01-14 16:59 :00 No at 84-168 mL/hr, 2,184 mL, TPN CYCLIC, Starting on Dorothea 01/13/23 at 2100, Until 01/14/23 at 1059 [facility] octreotide 100 mcg/mL injection 2022-02 00:00: 00 Yes [id number] 100ug inject 1 mL under the skin every 12 (twelve) hours. [facility] melatonin 3 mg tablet 2022-02 00:00: 00 Yes [id number] 3mg Take 1 tablet by mouth at bedtime. [facility] methocarbam oL 500 mg tablet 2022-02 00:00: 00 Yes 1000mg Take 2 tablets by mouth every 8 (eight) hours. [facility] loperamide 2 mg capsule 2022-02 00:00: 00 02-10 00:00 :00 No [id number] 2mg Take 1 capsule by mouth in the morning and 1 capsule in the evening. [facility] ondansetron 4 mg disintegrat ing tablet 2022-02 00:00: 00 02-10 00:00 :00 No [id number] 4mg Take 1 tablet by mouth every 8 (eight) hours as needed for Nausea and Vomiting (N/V). [facility] HYDROcodone -acetaminop hen 5-325 mg tablet 2022-02 00:00: 00 01-22 05:59 :00 No [id number] 1{tbl} Take 1 tablet by mouth every 6 (six) hours as needed for Pain (scale 7-10) for up to 7 days. Indication s: acute pain [facility] traMADoL 50 mg tablet 2022-02 00:00: 00 01-22 05:59 :00 No [id number] 50mg Take 1 tablet by mouth every 6 (six) hours as needed for Pain (scale 4-6) for up to 7 days. Indication s: chronic pain [facility] methocarbam oL 1,000 mg Tab 2022-02 00:00: 00 01-19 00:00 :00 No [id number] 1000mg Take 1,000 mg by mouth every 8 (eight) hours. [facility] dextrose in water SolP 240.002 g, parenteral [...] 2022-02 00:00: 00 01-17 00:00 :00 No [id number] by IV Infusion route daily. [facility] acetaminoph en (TYLENOL) tablet 650 mg 2022-02 06:00: 00 Yes 650mg 650 mg, Oral, Q6H, First dose on Dorothea 01/13/23 at 0000, Until Discontinu ed, Routine [facility] morpHINE (4 mg/mL) injection 4 mg 2022-02 04:30: 00 Yes 4mg 4 mg, Slow IV Push, PRN - SEE INSTRUCTIO NS, Starting on 01/12/23 at 2230, Until Discontinu ed, Routine, rescue dose [facility] traMADoL (ULTRAM) tablet 50 mg 2022-02 04:25: 41 Yes 50mg 50 mg, Oral, Q6HPRN, Starting on Tue01/12/23 at 2225, Until Discontinu ed, Routine, Pain (scale 4-6) [facility] HYDROcodone -acetaminop hen (NORCO 5) 5-325 mg tablet 1 tablet 2022-02 04:24: 38 Yes 1{tbl} 1 tablet, Oral, Q6HPRN, Starting on Tue01/12/23 at 2224, Until Discontinu ed, Routine, Pain (scale 7-10) [facility] Total Parenteral Nutrition Adult 2022-02 03:00: 00 01-14 02:59 :00 No at 91 mL/hr, 2,184 mL, TPNCONTINU OUS, Starting on Tue01/12/23 at 2100, Until Dorothea 01/13/23 at 2058 [facility] loperamide (IMODIUM A-D) capsule 2 mg 2022-02 02:00: 00 01-14 14:06 :01 No 2mg 2 mg, Oral, BID, First dose on Tue01/12/23 at 2000, Until Discontinu ed, Routine [facility] Total Parenteral Nutrition Adult 2022-02 03:00: 00 01-13 02:59 :00 No at 75 mL/hr, 1,800 mL, TPNCONTINU OUS, Starting on Tue01/11/23 at 2100, Until Tue01/12/23 at 2058 [facility] methocarbam oL (ROBAXIN) tablet 1,000 mg 2022-02 20:00: 00 Yes 1000mg 1,000 mg, Oral, Q8H, First dose on Tue01/11/23 at 1400, Until Discontinu ed, Routine [facility] HYDROcodone -acetaminop hen (NORCO 5) 5-325 mg tablet 1 tablet 2022-02 2 17:49: 48 01-12 08:58 :10 No 1{tbl} 1 tablet, Oral, Q6HPRN, Starting on Tue01/11/23 at 1149, Until Tue01/12/23 at 0258, Routine, Pain (scale 7-10) [facility] levoFLOXaci n (LEVAQUIN) tablet 750 mg 2022-02 15:15: 00 01-13 17:10 :29 No 750mg 750 mg, Oral, Q24H ABX, 7 doses, First dose (after last modificati on) on Tue01/11/23 at 0915, Last dose on Tue01/17/23 at 0915, KATHERIN
Re ason for Anti-Infec tive: Documented Infection< br>Documen peter Infection Site: Abdominal< br>Duratio n of Therapy: 7 days [facility] pantoprazol e (PROTONIX) EC tablet 40 mg 2022-02 15:00: 00 Yes 40mg 40 mg, Oral, DAILY, First dose on Tue01/11/23 at 0900, Until Discontinu ed, Routine [facility] fluconazole (DIFLUCAN) tablet 400 mg 2022-02 15:00: 00 01-13 17:10 :29 No 400mg 400 mg, Oral, DAILY, 7 doses, First dose on Tue01/11/23 at 0900, Last dose on Tue01/17/23 at 0900, KATHERIN
Re ason for Anti-Infec tive: Documented Infection< br>Documen peter Infection Site: Abdominal< br>Duratio n of Therapy: 7 days [facility] octreotide (SANDOSTATI N) 500 mcg in NaCl 0.9% (NS) 100 mL infusion 2022-02 14:45: 00 01-17 15:32 :09 No 25ug/h 25 mcg/hr (5 mL/hr), IV Infusion, CONTINUOUS , Starting on Tue01/11/23 at 0845 [facility] metroNIDAZO LE (FLAGYL) tablet 500 mg 2022-02 14:00: 00 01-13 17:10 :29 No 500mg 500 mg, Oral, Q12H, 14 doses, First dose on Tue01/11/23 at 0800, Last dose on Tue01/17/23 at 2000, Routine
Reason for Anti-Infec tive: Documented Infection< br>Documen peter Infection Site: Abdominal< br>Duratio n of Therapy: 7 days [facility] zolpidem (AMBIEN) tablet 5 mg 2022-02 03:00: 00 Yes 5mg 5 mg, Oral, QHS, First dose on Tue01/10/23 at 2100, Until Discontinu ed, Routine [facility] Total Parenteral Nutrition Adult 2022-02 03:00: 00 01-12 02:59 :00 No at 75 mL/hr, 1,800 mL, TPNCONTINU OUS, Starting on Tue01/10/23 at 2100, Until Tue01/11/23 at 2058 [facility] amino acids 4.25%-elect rolytes-driss cium-dextro se 5% (CLINIMIX-E 4.25%/D5W SULF FREE) IV infusion 2,000 mL 2022-02 03:00: 00 01-11 02:59 :00 No 2000mL at 83 mL/hr, 2,000 mL, IV Infusion, TPNCONTINU OUS, Starting on Tue01/09/23 at 2100, Until Tue01/10/23 at 2058, Routine [facility] metroNIDAZO LE in NaCl (iso-os) (FLAGYL I.V.) [...] Abdominal< br>Duratio n of Therapy: 7 days [facility] methocarbam oL (ROBAXIN) injection 1,000 mg 2022-02 20:00: 00 01-11 13:35 :48 No 1000mg 1,000 mg, Intravenou s, Q8H, 9 doses, First dose on Tue01/09/23 at 1400, Last dose on Tue01/12/23 at 0600, Routine [facility] ceFEPIme (MAXIPIME) 2,000 mg in NaCl 0.9% [...] Abdominal< br>Duratio n of Therapy: 7 days [facility] acetaminoph en ADULT (OFIRMEV) injection 1,000 mg 2022-02 15:30: 00 01-09 17:59 :00 No 1000mg 1,000 mg, IV Infusion, at 400 mL/hr Administer over 15 Minutes, ONCE, 1 dose, On Tue01/09/23 at 0930, Routine
Indicatio n: Strict NPO and unable to tolerate oral medication s [facility] D5W 0.45% NaCl (1/2NS) 1 L + KCL 20 mEq 2022-02 15:15: 00 01-12 14:03 :22 No IV Infusion, at 40 mL/hr, CONTINUOUS , Starting on Tue01/09/23 at 0915, Until Tue01/12/23 at 0803, Routine [facility] lidocaine 1% (PF) (XYLOCAINE) injection 5 mL 2022-02 14:00: 00 01-10 21:15 :00 No 5mL 5 mL, Subcutaneo us, ONCE, 1 dose, On Tue01/09/23 at 0800, Routine [facility] NaCl 0.9% (NS) injection 10 mL 2022-02 13:55: 59 Yes 10mL 10 mL, Slow IV Push, PRN, Starting on Tue01/09/23 at 0755, Until Discontinu ed, Routine, line maintenanc e [facility] D5W 0.45% NaCl (1/2NS) 1 L + KCL 20 mEq 2022-02 13:30: 00 01-09 15:00 :12 No IV Infusion, at 125 mL/hr, CONTINUOUS , Starting on Tue01/09/23 at 0730, Until Tue01/09/23 at 0900, Routine [facility] potassium chloride in water (KCL) 20 mEq/100 mL RTU IVPB 20 mEq 2022-02 12:30: 00 01-09 16:18 :00 No 20meq 20 mEq, IV Piggyback, ONCE, 1 dose, On Tue01/09/23 at 0630, 100 mL [facility] lidocaine 1% (PF) (XYLOCAINE) injection 2022-02 20:18: 38 01-07 20:18 :38 No PRN, Starting on Tue01/07/23 at 1418, Until Tue01/07/23 at 1418, Routine, Intra-op [facility] midazolam (VERSED) injection 2022-02 20:16: 00 01-07 20:16 :00 No IV Push, PRN, Starting on Tue01/07/23 at 1416, Until Tue01/07/23 at 1416, Routine, Intra-op [facility] FENTanyl PF (SUBLIMAZE (PF)) injection 2022-02 20:15: 00 01-07 20:15 :00 No Slow IV Push, PRN, Starting on Tue01/07/23 at 1415, Until Tue01/07/23 at 1415, Routine, Intra-op [facility] magnesium sulfate in water 2 gram/50 mL (4 %) infusion 2 g 2022-02 13:45: 00 01-07 16:15 :00 No 2g 2 g, IV Piggyback, Administer over 60 Minutes, ONCE, 1 dose, On Tue01/07/23 at 0745, Routine [facility] melatonin (MELATIN) tablet 3 mg 2022-02 03:00: 00 Yes 3mg 3 mg, Oral, QHS, First dose (after last modificati on) on Tue01/06/23 at 2100, Until Discontinu ed, Routine [facility] acetaminoph en (TYLENOL) tablet 1,000 mg 2022-02 02:30: 00 01-09 14:32 :52 No 1000mg 1,000 mg, Oral, Q8H, First dose (after last modificati on) on Tue01/06/23 at 2030, Until Discontinu ed, Routine [facility] methocarbam oL (ROBAXIN) tablet 500 mg 2022-02 02:00: 00 01-09 14:32 :52 No 500mg 500 mg, Oral, QID, First dose on Tue01/06/23 at 2000, Until Discontinu ed, Routine [facility] simethicone (GAS RELIEF (SIMETHICON E)) chewable tablet 80 mg 2022-02 00:00: 00 Yes 80mg 80 mg, Oral, PC+HS, First dose on Tue01/06/23 at 1800, Until Discontinu ed, Routine [facility] pantoprazol e (PROTONIX) injection 40 mg 2022-02 22:30: 00 01-11 13:35 :48 No 40mg 40 mg, Slow IV Push, Q24H, First dose on Tue01/06/23 at 1630, Until Discontinu ed [facility] methocarbam oL (ROBAXIN) injection 1,000 mg 2022-02 20:00: 00 01-07 00:14 :03 No 1000mg 1,000 mg, Intravenou s, Q8H, First dose on Tue01/06/23 at 1400, Until Discontinu ed, Routine [facility] acetaminoph en ADULT (OFIRMEV) injection 1,000 mg 2022-02 20:00: 00 01-07 00:14 :03 No 1000mg 1,000 mg, IV Infusion, at 400 mL/hr Administer over 15 Minutes, Q8H, 3 doses, First dose on Tue01/06/23 at 1400, Last dose on Tue01/07/23 at 0600, Routine
Indicatio n: Strict NPO and unable to tolerate oral medication s [facility] morpHINE (4 mg/mL) injection 4 mg 2022-02 16:34: 12 01-13 04:25 :55 No 4mg 4 mg, Slow IV Push, Q4HPRN, Starting on Tue01/06/23 at 1034, Until Tue01/12/23 at 2225, Routine, Pain (scale 7-10) [facility] tamsulosin (FLOMAX) capsule 0.4 mg 2022-02 15:00: 00 Yes .4mg 0.4 mg, Oral, DAILY, First dose (after last modificati on) on Tue01/06/23 at 0900, Until Discontinu ed, Routine [facility] simethicone (GAS RELIEF (SIMETHICON E)) chewable tablet 80 mg 2022-02 15:00: 00 01-06 16:34 :46 No 80mg 80 mg, Oral, PC+HS, First dose (after last modificati on) on Tue01/06/23 at 0900, Until Discontinu ed, [facility] EC tablet 40 mg 2022-02 15:00: 00 01-06 16:34 :46 No 40mg 40 mg, Oral, DAILY, First dose (after last modificati on) on Tue01/06/23 at 0900, Until Discontinu ed, [facility] mineral oil (MINERAL OIL EXTRA HEAVY) oral liquid 30 mL 2022-02 15:00: 00 01-06 16:34 :46 No 30mL 30 mL, Oral, DAILY, First dose (after last modificati on) on Tue01/06/23 at 0900, Until Discontinu ed, Routine [facility] aspirin chewable tablet 81 mg 2022-02 15:00: 00 01-06 16:34 :46 No 81mg 81 mg, Oral, DAILY, First dose (after last modificati on) on Tue01/06/23 at 0900, Until Discontinu ed, Routine [facility] metroNIDAZO LE in NaCl (iso-os) (FLAGYL [...] n of Therapy: 7 days [facility] gabapentin (NEURONTIN) capsule 300 mg 2022-02 14:00: 00 01-06 16:34 :46 No 300mg 300 mg, Oral, TID, First dose (after last modificati on) on Tue01/06/23 at 0800, Until Discontinu ed, Routine [facility] morpHINE (2 mg/mL) injection 2 mg 2022-02 12:30: 00 01-06 11:49 :00 No 2mg 2 mg, Slow IV Push, ONCE, 1 dose, On Tue01/06/23 at 0630, Routine [facility] alum-mag hydroxide-s imeth (MAG-AL PLUS) 200-200-20 mg/5 mL suspension 30 mL 2022-02 12:00: 00 01-06 16:34 :46 No 30mL 30 mL, Oral, Q8H, First dose (after last modificati on) on Tue01/06/23 at 0600, Until Discontinu ed, Routine [facility] acetaminoph en (TYLENOL) tablet 1,000 mg 2022-02 12:00: 00 01-06 16:34 :46 No 1000mg 1,000 mg, Oral, Q8H, First dose (after last modificati on) on Dorothea 01/06/23 at 0600, Until Discontinu ed, Routine [facility] iohexol (OMNIPAQUE 350 BULK-100 mL) injection 80 mL 2022-02 09:26: 00 01-06 09:26 :00 No [id number] 80mL 80 mL, Intravenou s, ONCE, 1 dose, On Tue01/06/23 at 0345, Routine [facility] iohexol (OMNIPAQUE 350 BULK) 25 mL 2022-02 08:30: 00 01-06 08:20 :00 No [id number] 25mL 25 mL, Oral, ONCE, 1 dose, On Tue01/06/23 at 0230, Routine [facility] enoxaparin (LOVENOX) injection 40 mg 2022-02 07:30: 00 Yes 40mg 40 mg, Subcutaneo us, Q24H, First dose (after last modificati on) on Tue01/06/23 at 0130, Until Discontinu ed, Routine [facility] fluconazole (DIFLUCAN) Piggyback 200 mg 2022-02 07:30: 00 01-11 13:45 :10 No 200mg at 100 mL/hr, IV Piggyback, Q24H ABX, First dose (after last modificati on) on Tue01/06/23 at 0130, Until Discontinu ed, KATHERIN
Do Not Refrigerat e.
[facility] D5W 0.45% NaCl (1/2NS) IV infusion 1,000 mL 2022-02 07:30: 00 01-09 11:40 :17 No 1000mL at 125 mL/hr, 1,000 mL, IV Infusion, CONTINUOUS , Starting on Tue01/06/23 at 0130, Until 01/09/23 at 0540, Routine [facility] oxyCODONE immediate release tablet 5 mg 2022-02 07:26: 55 01-06 16:34 :46 No 5mg 5 mg, Oral, Q6HPRN, Starting on Tue01/06/23 at 0126, Until Tue01/06/23 at 1034, Routine, Pain (scale 4-6)
Fa culty member approving Restricted medication : SURADC [facility] ondansetron (ZOFRAN (PF)) injection 4 mg 2022-02 07:26: 54 Yes 4mg 4 mg, Slow IV Push, Q4HPRN, Starting on Dorothea 01/06/23 at 0126, Until Discontinu ed, Routine, Nausea and Vomiting (N/V) [facility] naloxone (NARCAN) injection 0.1 mg 2022-02 07:26: 47 Yes .1mg 0.1 mg, Slow IV Push, SEE-INSTRU CTIONS, Starting on Dorothea 01/06/23 at 0126, Until Discontinu ed, Routine [facility] metroNIDAZO LE in NaCl (iso-os) (FLAGYL I.V.) RTU IV infusion 500 mg 2022-02 05:45: 00 01-06 09:00 :00 No 500mg 500 mg, IV Infusion, ONCE NOW, 1 dose, On Tue01/05/23 at 2345, Administer over 60 Minutes, 100 mL
Reas on for Anti-Infec tive: Documented Infection< br>Documen peter Infection Site: Abdominal< br>Duratio n of Therapy: 7 days [facility] ondansetron (ZOFRAN (PF)) injection 4 mg 2022-02 05:00: 00 01-06 05:27 :00 No 4mg 4 mg, Slow IV Push, ONCE, 1 dose, On Tue01/05/23 at 2300, KATHERIN [facility] morpHINE (4 mg/mL) injection 4 mg 2022-02 05:00: 00 01-06 05:27 :00 No 4mg 4 mg, Slow IV Push, ONCE, 1 dose, On Tue01/05/23 at 2300, STAT [facility] piperacilli n-tazobacta m (ZOSYN) 3.375 g in NaCl 0.9% (NS) 100 mL MINI-BAG 2022-02 05:00: 00 01-06 07:42 :00 No 3.375g 3.375 g, IV Piggyback, ONCE, 1 dose, On Tue01/05/23 at 2300, Administer over 30 Minutes, 100 mL
Reas on for Anti-Infec tive: Documented Infection< br>Documen peter Infection Site: Abdominal< br>Duratio n of Therapy: 7 days [facility] tamsulosin 0.4 mg 24 hr capsule 2022-02 00:00: 00 Yes [id number] .4mg Take 1 capsule by mouth in the morning. [facility] aspirin 81 mg chewable tablet 2022-02 00:00: 00 Yes [id number] 81mg Take 1 tablet by mouth in the morning. [facility] morpHINE (2 mg/mL) injection 2 mg 2022-02 04:45: 00 01-04 03:57 :00 No 2mg 2 mg, Slow IV Push, ONCE, 1 dose, On Tue01/03/23 at 2245, Routine [facility] valACYclovi r (VALTREX) 500 mg tablet 2022-02 00:00: 00 Yes [id number] 500mg Take 1 tablet by mouth in the morning and 1 tablet in the evening. [facility] cephALEXin 250 mg capsule 2022-02 00:00: 00 Yes [id number] 500mg Take 2 capsules by mouth every 6 (six) hours. [facility] fluconazole 200 mg tablet 2022-02 00:00: 00 Yes [id number] 400mg Take 2 tablets by mouth in the morning. [facility] polyethylen e glycol 3350 17 gram/dose powder 2022-02 00:00: 00 Yes [id number] 17g Take 17 g by mouth in the morning. [facility] acetaminoph en 500 mg tablet 2022-02 00:00: 00 02-10 00:00 :00 No [id number] 1000mg Take 2 tablets by mouth every 8 (eight) hours. [facility] ibuprofen 800 mg tablet 2022-02 00:00: 00 02-10 00:00 :00 No [id number] 800mg Take 1 tablet by mouth every 8 (eight) hours as needed for Pain (scale 1-3) or Pain (scale 4-6). [facility] gabapentin 300 mg capsule 2022-02 00:00: 00 01-28 00:00 :00 No [id number] 300mg Take 1 capsule by mouth in the morning and 1 capsule at noon and 1 capsule in the evening. [facility] simethicone 80 mg chewable tablet 2022-02 00:00: 00 01-19 00:00 :00 No [id number] 160mg Take 2 tablets by mouth after meals and at bedtime. [facility] metroNIDAZO LE (FLAGYL) 500 mg tablet 2022-02 00:00: 00 01-14 00:00 :00 No [id number] 500mg Take 1 tablet by mouth in the morning and 1 tablet in the evening. [facility] oxyCODONE-a cetaminophe n 5-325 mg per tablet 2022-02 00:00: 00 01-14 00:00 :00 No [id number] 1{tbl} Take 1 tablet by mouth every 6 (six) hours as needed for Pain (scale 7-10). Indication s: acute pain [facility] iopamidol (ISOVUE 370-500 mL) injection 80 mL 2022-02 00:30: 00 01-03 00:30 :00 No [id number] 80mL 80 mL, Intravenou s, ONCE, 1 dose, On 01/02/23 at 1830, Routine [facility] acetaminoph en (TYLENOL) tablet 1,000 mg 2022-02 20:00: 00 Yes 1000mg 1,000 mg, Oral, Q8H, First dose (after last modificati on) on Tue01/02/23 at 1400, Until Discontinu ed, Routine [facility] mineral oil (MINERAL OIL EXTRA HEAVY) oral liquid 30 mL 2022-02 15:00: 00 Yes 30mL 30 mL, Oral, DAILY, First dose on Tue01/02/23 at 0900, Until Discontinu ed, Routine [facility] bisacodyL (DULCOLAX) suppository 10 mg 2022-02 14:45: 00 01-02 17:59 :00 No 10mg 10 mg, Rectal, Q2H, 2 doses, First dose on 01/02/23 at 0845, Last dose on 01/02/23 at 1000, Routine [facility] morpHINE (2 mg/mL) injection 4 mg 2022-02 14:40: 11 01-03 14:41 :36 No 4mg 4 mg, Slow IV Push, Q4HPRN, Starting on 01/02/23 at 0840, Until 01/03/23 at 0841, Routine, Pain (scale 7-10) [facility] ceFEPIme (MAXIPIME) 2,000 mg in NaCl 0.9% (NS) 100 mL MINI-BAG 2022-02 23:00: 00 01-08 22:59 :00 No 2000mg 2,000 mg, IV Piggyback, Q8H ABX, 21 doses, First dose on 01/01/23 at 1700, Last dose on 01/08/23 at 0900, Administer over 4 Hours, 100 mL
Reas on for Anti-Infec tive: Documented Infection< br>Documen peter Infection Site: Abdominal< br>Duratio n of Therapy: 7 days [facility] alum-mag hydroxide-s imeth (MAG-AL PLUS) 200-200-20 mg/5 mL suspension 30 mL 2022-02 20:00: 00 Yes 30mL 30 mL, Oral, Q8H, First dose (after last modificati on) on 01/01/23 at 1400, Until Discontinu ed, Routine [facility] ceFEPIme (MAXIPIME) 2,000 mg in NaCl 0.9% (NS) 100 mL MINI-BAG 2022-02 15:15: 00 01-01 15:42 :00 No 2000mg 2,000 mg, IV Piggyback, ONCE, 1 dose, On 01/01/23 at 0915, Administer over 30 Minutes, 100 mL
Reas on for Anti-Infec tive: Documented Infection< br>Documen peter Infection Site: Abdominal< br>Duratio n of Therapy: 7 days [facility] meropenem (MERREM) 1,000 mg in NaCl 0.9% [...] Abdominal< br>Duratio n of Therapy: 10 days [facility] morpHINE (2 mg/mL) injection 2 mg 2022-02 14:09: 35 01-02 14:40 :24 No 2mg 2 mg, Slow IV Push, Q4HPRN, Starting on Tue12/31/22 at 0809, Until Tue01/02/23 at 0840, Routine, Pain (scale 7-10) [facility] alteplase (CATHFLO ACTIVASE) injection 2 mg 2022-02 14:00: 00 12-31 17:20 :00 No 2mg 2 mg, INTRA-CATH ETER, ONCE, 1 dose, On Tue12/31/22 at 0800, Routine [facility] aspirin chewable tablet 81 mg 2022-02 15:00: 00 Yes 81mg 81 mg, Oral, DAILY, First dose on Tue12/30/22 at 0900, Until Discontinu ed, Routine [facility] Total Parenteral Nutrition Adult 2022-02 03:00: 00 12-31 02:59 :00 No at 75 mL/hr, 1,800 mL, TPNCONTINU OUS, Starting on Tue12/29/22 at 2100, Until Tue12/30/22 at 2059 [facility] meropenem (MERREM) 1,000 mg in NaCl 0.9% [...] Abdominal< br>Duratio n of Therapy: 10 days [facility] tamsulosin (FLOMAX) capsule 0.4 mg 2022-02 15:00: 00 Yes .4mg 0.4 mg, Oral, DAILY, First dose on Tue12/29/22 at 0900, Until Discontinu ed, Routine [facility] acetaminoph en (TYLENOL) tablet 650 mg 2022-02 09:54: 34 01-02 14:40 :24 No 650mg 650 mg, Oral, Q6HPRN, Starting on Tue12/29/22 at 0354, Until Tue01/02/23 at 0840, Routine, Pain (scale 4-6) [facility] methocarbam oL (ROBAXIN) injection 1,000 mg 2022-02 04:15: 00 12-29 03:42 :00 No 1000mg 1,000 mg, Intravenou s, ONCE, 1 dose, On Tue12/28/22 at 2215, Routine [facility] Total Parenteral Nutrition Adult 2022-02 03:00: 00 12-30 02:59 :00 No at 75 mL/hr, 1,800 mL, TPNCONTINU OUS, Starting on Tue12/28/22 at 2100, Until Tue12/29/22 at 2058 [facility] furosemide (LASIX) injection 20 mg 2022-02 14:15: 00 12-28 13:55 :00 No 20mg 20 mg, Slow IV Push, ONCE, 1 dose, On Tue12/28/22 at 0815, Routine [facility] acetaminoph en ADULT (OFIRMEV) injection 1,000 mg 2022-02 04:00: 00 12-28 20:29 :00 No 1000mg 1,000 mg, IV Infusion, at 400 mL/hr Administer over 15 Minutes, Q8H, 3 doses, First dose on Tue12/27/22 at 2200, Last dose on Tue12/28/22 at 1400, Routine
Indicatio n: Strict NPO and unable to tolerate oral medication s [facility] Total Parenteral Nutrition Adult 2022-02 03:00: 00 12-29 02:59 :00 No at 70.84 mL/hr, 2,000 mL, TPNCONTINU OUS, Starting on Tue12/27/22 at 2100, Until Tue12/28/22 at 2058 [facility] Total Parenteral Nutrition Adult 2022-02 03:00: 00 12-28 02:59 :00 No at 70.84 mL/hr, 2,000 mL, TPNCONTINU OUS, Starting on Tue12/26/22 at 2100, Until Tue12/27/22 at 2058 [facility] alum-mag hydroxide-s imeth (MAG-AL PLUS) 200-200-20 mg/5 mL suspension 30 mL 2022-02 02:30: 29 01-01 15:47 :46 No 30mL 30 mL, Oral, Q6HPRN, Starting on Tue12/26/22 at 2030, Until 01/01/23 at 0947, Routine, Indigestio n [facility] meropenem (MERREM) 1,000 mg in NaCl 0.9% (NS) 100 mL MINI-BAG 2022-02 23:00: 00 12-29 22:37 :48 No 1000mg 1,000 mg, IV Piggyback, Q8H ABX, 21 doses, First dose (after last modificati on) on Tue12/26/22 at 1700, Last dose on Tue01/02/23 at 0900, Administer over 3 Hours, 100 mL
Rest ricted use approved by: [facility]
Reason for Anti-Infec tive: Documented Infection< br>Documen peter Infection Site: Abdominal< br>Duratio n of Therapy: 7 days [facility] HYDROmorpho ne (DILAUDID) injection 1 mg 2022-02 22:30: 00 12-30 17:56 :04 No 1mg 1 mg, Slow IV Push, Q4HPRN, Starting on Tue12/26/22 at 1630, Until Dorothea 12/30/22 at 1156, Routine, Pain (scale 7-10) [facility] oxyCODONE immediate release tablet 5 mg 2022-02 22:26: 13 Yes 5mg 5 mg, Oral, Q6HPRN, Starting on Tue12/26/22 at 1626, Until Discontinu ed, Routine, Pain (scale 4-6)
Fa culty member [facility]UE 370-500 mL) [facility] 90 mL 2022-02 15:45: 00 12-26 16:00 :00 No [id number] 90mL 90 mL, Intravenou s, ONCE, 1 dose, On Tue12/26/22 at 1000, Routine [facility] vancomycin (VANCOCIN) 1,500 mg in NaCl 0.9% (NS) 500 mL VIAL-MATE IV piggyback 2022-02 10:00: 00 01-01 14:16 :41 No 1500mg 1,500 mg, IV Piggyback, Q8H ABX, 37 doses, First dose (after last modificati on) on Tue12/26/22 at 0400, Last dose on Tue01/07/23 at 0530, Administer over 90 Minutes, 500 mL
Reas on for Anti-Infec tive: Documented Infection< br>Documen peter Infection Site: Abdominal< br>Duratio n of Therapy: 14 days [facility] acetaminoph en (TYLENOL) tablet 650 mg 2022-02 05:03: 10 12-27 21:10 :38 No 650mg 650 mg, Oral, Q4HPRN, Starting on 12/25/22 at 2303, Until 12/27/22 at 1510, Routine, Pain (scale 1-3), Temp > 38 C [facility] Total Parenteral Nutrition Adult 2022-02 03:00: 00 12-27 02:59 :00 No at 70.84 mL/hr, 2,000 mL, TPNCONTINU OUS, Starting on 12/25/22 at 2100, Until 12/26/22 at 205 [facility] alum-mag hydroxide-s imeth (MAG-AL PLUS) 200-200-20 mg/5 mL suspension 30 mL 2022-02 02:59: 04 12-26 19:32 :34 No 30mL 30 mL, Oral, Q6HPRN, Starting on 12/25/22 at 2059, Until 12/26/22 at 1332, Routine, Indigestio n [facility] methocarbam oL (ROBAXIN) injection 1,000 mg 2022-02 20:00: 00 12-28 13:54 :00 No 1000mg 1,000 mg, Intravenou s, Q8H, 9 doses, First dose (after last reorder) on Tue12/25/22 at 1400, Last dose on Tue12/28/22 at 0600, Routine [facility] famotidine (PEPCID (PF)) injection 20 mg 2022-02 19:53: 29 Yes 20mg 20 mg, Slow IV Push, [id number], Starting on 12/25/22 at 1353, Until Discontinu ed, Routine, Heartburn [facility] iopamidol (ISOVUE 370-500 mL) injection 80 mL 2022-02 18:10: 00 12-25 18:30 :00 No [id number] 80mL 80 mL, Intravenou s, ONCE, 1 dose, On 12/25/22 at 1230, Routine [facility] iopamidol (ISOVUE 370-500 mL) injection 100 mL 2022-02 16:15: 00 12-25 18:16 :00 No [id number] 100mL 100 mL, Oral, ONCE, 1 dose, On 12/25/22 at 1015, Routine [facility] Total Parenteral Nutrition Adult 2022-02 03:00: 00 12-26 02:59 :00 No at 70.84 mL/hr, 2,000 mL, TPNCONTINU OUS, Starting on Tue12/24/22 at 2100, Until 12/25/22 at 2059 [facility] HYDROmorpho ne 10 mg/50 mL NS (DILAUDID) 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
Lock out Interval: 6 Minutes
Basal Rate: 0 mg/hr
F our Hour Dose Limit: 1.6 mg
IV Infusion, 50 mL, CONTINUOUS , Starting on Tue12/24/22 at 1500, Until 12/26/22 at 1459 [facility] acetaminoph en ADULT (OFIRMEV) injection 1,000 mg 2022-02 20:00: 00 12-25 11:41 :00 No 1000mg 1,000 mg, IV Infusion, at 400 mL/hr Administer over 15 Minutes, Q8H, 3 doses, First dose (after last reorder) on Tue12/24/22 at 1400, Last dose on 12/25/22 at 0600, Routine
Indicatio n: Strict NPO and unable to tolerate oral medication s [facility] vancomycin 1,250 mg in NaCl 0.9% (NS) [...] Abdominal< br>Duratio n of Therapy: 14 days [facility] ity [facility] pantoprazol e (PROTONIX) EC tablet 40 mg 2022-02 15:00: 00 Yes 40mg 40 mg, Oral, DAILY, First dose on Tue12/24/22 at 0900, Until Discontinu ed, Routine [facility] magnesium sulfate in water 4 gram/50 mL (8 %) IV Piggyback 4 g 2022-02 14:00: 00 12-24 16:31 :00 No 4g 4 g, IV Piggyback, at 25 mL/hr Administer over 120 Minutes, ONCE, 1 dose, On Tue12/24/22 at 0800, Routine [facility] melatonin (MELATIN) tablet 3 mg 2022-02 03:00: 00 Yes 3mg 3 mg, Oral, QHS, First dose on Tue12/23/22 at 2100, Until Discontinu ed, Routine [facility] Total Parenteral Nutrition Adult 2022-02 03:00: 00 12-25 02:59 :00 No at 70.84 mL/hr, 2,000 mL, TPNCONTINU OUS, Starting on Tue12/23/22 at 2100, Until Tue12/24/22 at 2059 [facility] fluconazole (DIFLUCAN) Piggyback 200 mg 2022-02 21:45: 00 Yes 200mg at 100 mL/hr, IV Piggyback, Q24H ABX, First dose on Tue12/23/22 at 1545, Until Discontinu ed, KATHERIN
Do Not Refrigerat e.
[facility] gabapentin (NEURONTIN) capsule 300 mg 2022-02 20:00: 00 Yes 300mg 300 mg, Oral, TID, First dose on Tue12/23/22 at 1400, Until Discontinu ed, [facility] AD[facility] (OFIRMEV) injection 1,000 mg 2022-02 20:00: 00 12-24 11:46 :00 No 1000mg 1,000 mg, IV Infusion, at 400 mL/hr Administer over 15 Minutes, Q8H, 3 doses, First dose (after last reorder) on Tue12/23/22 at 1400, Last dose on Tue12/24/22 at 0600, Routine
Indicatio n: Strict NPO and unable to tolerate oral medication s [facility] simethicone (GAS RELIEF (SIMETHICON E)) chewable tablet 80 mg 2022-02 19:00: 00 Yes 80mg 80 mg, Oral, PC+HS, First dose on Tue12/23/22 at 1300, Until Discontinu ed, Routine [facility] furosemide (LASIX) injection 40 mg 2022-02 18:15: 00 12-23 18:23 :00 No 40mg 40 mg, Slow IV Push, ONCE, 1 dose, On Tue12/23/22 at 1215, Routine [facility] diazePAM (VALIUM) injection 5 mg 2022-02 18:07: 59 Yes 5mg 5 mg, Intravenou s, Q6HPRN, Starting on Tue12/23/22 at 1207, Until Discontinu ed, Routine, Anxiety, sedation [facility] calcium gluconate 2 g in NaCl 100 mL (ISO-OSM) RTU IV infusion 2 g 2022-02 17:30: 00 12-23 19:12 :00 No 2g 2 g, IV Infusion, at 200 mL/hr Administer over 30 Minutes, ONCE, 1 dose, On Tue12/23/22 at 1130, Routine [facility] oxyCODONE immediate release tablet 5 mg 2022-02 16:28: 26 12-26 22:26 :36 No 5mg 5 mg, Oral, Q6HPRN, Starting on Tue12/23/22 at 1028, Until 12/26/22 at 1626, Routine, Pain (scale 7-10)
F aculty member approving Restricted medication : SURADC [facility] HYDROcodone -acetaminop hen (NORCO 5) 5-325 mg tablet 1 tablet 2022-02 14:37: 34 12-23 16:28 :46 No 1{tbl} 1 tablet, Oral, Q4HPRN, Starting on Tue12/23/22 at 0837, Until Tue12/23/22 at 1028, Routine, Pain (scale 4-6) [facility] lidocaine (LIDODERM) 5 % (700 mg/patch) patch 1 Patch 2022-02 14:15: 00 12-24 02:19 :00 No 1{patch } 1 Patch, Topical, Administer over 12 Hours, ONCE, 1 dose, On Tue12/23/22 at 0815, Routine [facility] enoxaparin (LOVENOX) injection 40 mg 2022-02 14:00: 00 Yes 40mg 40 mg, Subcutaneo us, Q24H, First dose (after last modificati on) on Tue12/23/22 at 0800, Until Discontinu ed, Routine [facility] potassium phosphate 30 mmol in NaCl 0.9% (NS) 500 mL piggyback 2022-02 13:45: 00 12-23 18:35 :00 No 30mmol 30 mmol, IV Piggyback, ONCE, 1 dose, On Tue12/23/22 at 0745, 500 mL [facility] magnesium sulfate in water 2 gram/50 mL (4 %) infusion 2 g 2022-02 13:45: 00 12-23 15:16 :00 No 2g 2 g, IV Piggyback, Administer over 60 Minutes, ONCE, 1 dose, On Tue12/23/22 at 0745, Routine [facility] Total Parenteral Nutrition Adult 2022-02 03:00: 00 12-24 02:59 :00 No at 83.3 mL/hr, 2,000 mL, TPNCONTINU OUS, Starting on Tue12/22/22 at 2100, Until Tue12/23/22 at 2059 [facility] meropenem (MERREM) 1,000 mg in NaCl 0.9% [...] Abdominal< br>Duratio n of Therapy: 7 days [facility] HYDROmorpho ne (DILAUDID) 10 mg/50 mL 0.9% NaCl ELECTROLYSIS NEEDLE OPERATOR 2022-02 21:00: 00 12-24 14:14 :00 No Patient Bolus Dose: 0.04 mg
Lock out Interval: 6 Minutes
Basal Rate: 0 mg/hr
F our Hour Dose Limit: 3.2 mg
IV Infusion, 50 mL, CONTINUOUS , Starting on Tue12/22/22 at 1500, Until Tue12/24/22 at 0814 [facility] methocarbam oL (ROBAXIN) injection 1,000 mg 2022-02 20:00: 00 12-25 11:27 :00 No 1000mg 1,000 mg, Intravenou s, Q8H, 9 doses, First dose on Tue12/22/22 at 1400, Last dose on Tue12/25/22 at 0600, Routine [facility] acetaminoph en ADULT (OFIRMEV) injection 1,000 mg 2022-02 20:00: 00 12-23 11:31 :00 No 1000mg 1,000 mg, IV Infusion, at 400 mL/hr Administer over 15 Minutes, Q8H, 3 doses, First dose (after last reorder) on Tue12/22/22 at 1400, Last dose on Tue12/23/22 at 0600, Routine
Indicatio n: Strict NPO and unable to tolerate oral medication s [facility] iopamidol (ISOVUE 370-500 mL) injection 80 mL 2022-02 19:15: 00 12-22 19:11 :00 No [id number] 80mL 80 mL, Intravenou s, ONCE, 1 dose, On Tue12/22/22 at 1330, Routine [facility] potassium phosphate 30 mmol in NaCl 0.9% (NS) 500 mL piggyback 2022-02 15:15: 00 12-22 19:51 :00 No 30mmol 30 mmol, IV Piggyback, ONCE, 1 dose, On Tue12/22/22 at 0915, 500 mL [facility] meropenem (MERREM) 1,000 mg in NaCl 0.9% (NS) 100 mL MINI-BAG 2022-02 15:15: 12-22 19:54 :00 No 1000mg 1,000 mg, IV Piggyback, ONCE, 1 dose, On Tue12/22/22 at 0915, Administer over 240 Minutes, 100 mL
Rest ricted use approved by: [facility]
Reason for Anti-Infec tive: Documented Infection& lt;br>Docu mented Infection Site: Abdominal< br>Duratio n of Therapy: 7 days [facility] magnesium sulfate in water 4 gram/50 mL (8 %) IV Piggyback 4 g 2022-02 14:30: 00 12-22 16:08 :00 No 4g 4 g, IV Piggyback, at 25 mL/hr Administer over 120 Minutes, ONCE, 1 dose, On Tue12/22/22 at 0830, Routine [facility] HYDROmorpho ne (DILAUDID) 10 mg/50 mL 0.9% NaCl ELECTROLYSIS NEEDLE OPERATOR 2022-02 14:15: 00 12-22 20:32 :49 No Patient Bolus Dose: 0.04 mg
Lock out Interval: 6 Minutes
Basal Rate: 0 mg/hr
F our Hour Dose Limit: 2.4 mg
IV Infusion, 50 mL, CONTINUOUS , Starting on Tue12/22/22 at 0815, Until Tue12/22/22 at 1432 [facility] HYDROmorpho ne (DILAUDID) injection 2022-02 13:10: 43 12-26 22:26 :36 No Slow IV Push, Q8HPRN, Starting on Tue12/22/22 at 0710, Until Tue12/26/22 at 1626, Routine, Pain [facility] methocarbam oL (ROBAXIN) injection 500 mg 2022-02 12:30: 00 12-22 12:21 :00 No 500mg 500 mg, Intravenou s, ONCE, 1 dose, On Tue12/22/22 at 0630, Routine [facility] FENTanyl PF (SUBLIMAZE (PF)) injection 25 mcg 2022-02 10:00: 00 12-22 09:15 :00 No 25ug 25 mcg, Slow IV Push, ONCE, 1 dose, On Tue12/22/22 at 0400, Routine [facility] Total Parenteral Nutrition Adult 2022-02 03:00: 00 12-23 02:59 :00 No at 83.3 mL/hr, 2,000 mL, TPNCONTINU OUS, Starting on Tue12/21/22 at 2100, Until Tue12/22/22 at 2059 [facility] methocarbam oL (ROBAXIN) injection 500 mg 2022-02 02:30: 00 12-22 01:54 :00 No 500mg 500 mg, Intravenou s, ONCE, 1 dose, On Tue12/21/22 at 2030, Routine [facility] morpHINE 30 mg/30 mL (fixed dose) ELECTROLYSIS NEEDLE OPERATOR injection 2022-02 23:15: 00 12-22 13:13 :32 No Patient Bolus Dose: 0.5 mg
Lock out Interval: 12 Minutes
Basal Rate: 0 mg/hr
F our Hour Dose Limit: 10 mg
Intr avenous, 30 mL, CONTINUOUS , Starting on Tue12/21/22 at 1715, Until Tue12/22/22 at 0713 [facility] naloxone (NARCAN) injection 0.1 mg 2022-02 22:10: 36 Yes .1mg 0.1 mg, Slow IV Push, SEE-INSTRU CTIONS, Starting on Tue12/21/22 at 1610, Until Discontinu ed, Routine [facility] acetaminoph en ADULT (OFIRMEV) injection 1,000 mg 2022-02 20:00: 00 12-22 11:42 :00 No 1000mg 1,000 mg, IV Infusion, at 400 mL/hr Administer over 15 Minutes, Q8H, 3 doses, First dose (after last reorder) on Tue12/21/22 at 1400, Last dose on Tue12/22/22 at 0600, Routine
Indicatio n: Strict NPO and unable to tolerate oral medication s [facility] phenoL (SORE THROAT (PHENOL)) 1.4 % spray bottle 1 [place] 2022-02 18:03: 51 Yes 1{spray } 1 [place], Oral, PRN, Starting on Tue12/21/22 at 1203, Until Discontinu ed, Routine, Sore throat [facility] pantoprazol e (PROTONIX) injection 40 mg 2022-02 14:00: 00 12-23 16:30 :35 No 40mg 40 mg, Slow IV Push, Q12H, First dose (after last modificati on) on Tue12/21/22 at 0800, Until Discontinu ed [facility] ertapenem (INVANZ) 1,000 mg in NaCl 0.9% [...] colonizati on in the past 3 months [facility] acetaminoph en ADULT (OFIRMEV) injection 1,000 mg 2022-02 20:00: 00 12-21 19:59 :00 No 1000mg 1,000 mg, IV Infusion, at 400 mL/hr Administer over 15 Minutes, Q8H, 3 doses, First dose (after last reorder) on Tue12/20/22 at 1400, Last dose on Tue12/21/22 at 0600, Routine
Indicatio n: Strict NPO and unable to tolerate oral medication s [facility] D5W 0.9% NaCl (NS) 1 L + KCL 20 mEq 2022-02 15:00: 00 Yes IV Infusion, at 125 mL/hr, CONTINUOUS , Starting on Tue12/20/22 at 0900, Until Discontinu ed, Routine [facility] enoxaparin (LOVENOX) injection 40 mg 2022-02 15:00: 00 Yes 40mg 40 mg, Subcutaneo us, Q24H, First dose on Tue12/20/22 at 0900, Until Discontinu ed, Routine [facility] potassium chloride in water (KCL) 20 mEq/100 mL RTU IVPB 20 mEq 2022-02 14:00: 00 12-20 15:46 :00 No 20meq 20 mEq, IV Piggyback, Q1H, 2 doses, First dose on Tue12/20/22 at 0800, Last dose on Tue12/20/22 at 0900, 100 mL [facility] fentaNYL PF (SUBLIMAZE) STD 2,500 mcg in [...] at maximum allowed dose, contact prescriber .
[facility] dexMEDEtomi dine 200 mcg in 0.9 % [...] at maximum allowed dose, contact prescriber .
[facility] pantoprazol e (PROTONIX) injection 40 mg 2022-02 15:00: 00 Yes 40mg 40 mg, Slow IV Push, DAILY, First dose on Tue12/19/22 at 0900, Until Discontinu ed [facility] heparin (porcine) injection 5,000 Units 2022-02 12:00: 00 12-20 13:53 :28 No 5000U 5,000 Units, Subcutaneo us, Q8H, First dose on Tue12/19/22 at 0600, Until Discontinu ed, Routine [facility] magnesium sulfate in water 4 gram/50 mL (8 %) IV Piggyback 4 g 2022-02 06:30: 00 12-19 08:29 :00 No 4g 4 g, IV Piggyback, at 25 mL/hr Administer over 120 Minutes, ONCE, 1 dose, On Tue12/19/22 at 0030, Routine [facility] acetaminoph en ADULT (OFIRMEV) injection 1,000 mg 2022-02 04:00: 00 12-19 20:36 :00 No 1000mg 1,000 mg, IV Infusion, at 400 mL/hr Administer over 15 Minutes, Q8H, 3 doses, First dose (after last modificati on) on [facility] 12/18/22 at 2200, Last dose on 11/12/23 at 1400, Routine
Indicatio n: Strict NPO and unable to tolerate oral medication s [facility] piperacilli n-tazobacta m (ZOSYN) 3.375 g in [...] br>Duratio n of Therapy: 14 days [facility] NaCl 0.9% (NS) bolus infusion 1,000 mL 2022-02 01:30: 00 12-19 01:26 :55 No 1000mL at 999 mL/hr, 1,000 mL, IV Piggyback, ONCE, 1 dose, On 12/18/22 at 1930, STAT [facility] albumin (ALBUMINAR 25%) 25 % injection 25 g 2022-02 01:15: 00 12-19 00:40 :00 No 25g 25 g, IV Infusion, ONCE, 1 dose, On 12/18/22 at 1915, 100 mL
Elisa cation: NON-APPROV ED INDICATION - PHARMACY WILL CALL ORDERING PROVIDER<b r>Specific Indication : Septic shock with peritoniti s due to small bowel perforatio n
Facul ty Requesting Approval: TOYA MAJOR [facility] NORepinephr ine 4 mg in 0.9% NaCl [...] at maximum allowed dose, contact prescriber .
[facility] midazolam (VERSED) STD 50mg in NaCl 0.9% [...] at maximum allowed dose, contact prescriber .
[facility] naloxone (NARCAN) injection 0.1 mg 2022-02 23:34: 59 Yes .1mg 0.1 mg, Slow IV Push, SEE-INSTRU CTIONS, Starting on 12/18/22 at 1734, Until Discontinu ed, Routine [facility] sodium chloride 0.9 % irrigation solution 2022-02 21:48: 00 Yes PRN, Starting on 12/18/22 at 1548, Until Discontinu ed, Intra-op [facility] methocarbam oL (ROBAXIN) injection 1,000 mg 2022-02 20:00: 00 12-19 00:28 :53 No 1000mg 1,000 mg, Intravenou s, Q8H, First dose on 12/18/22 at 1400, Until Discontinu ed, Routine [facility] acetaminoph en ADULT (OFIRMEV) injection 1,000 mg 2022-02 20:00: 00 12-18 23:38 :04 No 1000mg 1,000 mg, IV Infusion, at 400 mL/hr Administer over 15 Minutes, Q8H, 3 doses, First dose on 12/18/22 at 1400, Last dose on 12/19/22 at 0600, Routine
Indicatio n: Strict NPO and unable to tolerate oral medication s [facility] piperacilli n-tazobacta m (ZOSYN) 3.375 g in NaCl 0.9% (NS) 100 mL MINI-BAG 2022-02 19:30: 00 12-18 20:06 :00 No 3.375g 3.375 g, IV Piggyback, ONCE, 1 dose, On 12/18/22 at 1330, Administer over 30 Minutes, 100 mL
Reas on for Anti-Infec tive: Documented Infection< br>Documen peter Infection Site: Abdominal< br>Duratio n of Therapy: 14 days [facility] iopamidol (ISOVUE 370-500 mL) injection 100 mL 2022-02 19:00: 00 12-18 19:00 :00 No [id number] 100mL 100 mL, Intravenou s, ONCE, 1 dose, On 12/18/22 at 1300, Routine [facility] HYDROmorpho ne (DILAUDID) injection 0.2 mg 2022-02 18:56: 51 12-18 23:38 :04 No .2mg 0.2 mg, Slow IV Push, Q4HPRN, Starting on 12/18/22 at 1256, Until 12/18/22 at 1738, Routine, Pain (scale 4-6)
Us e approved by (Faculty): GENERAL SURGERY
General surgeon approving: berlin Sow [facility] furosemide (LASIX) injection 20 mg 2022-02 18:00: 00 12-18 15:59 :09 No 20mg 20 mg, Slow IV Push, Q6H, First dose on 12/18/22 at 1200, Until Discontinu ed, Routine [facility] FENTanyl PF (SUBLIMAZE (PF)) injection 50 mcg 2022-02 15:30: 00 12-18 14:49 :00 No 50ug 50 mcg, Slow IV Push, ONCE, 1 dose, On 12/18/22 at 0930, STAT [facility] NaCl 0.9% (NS) bolus infusion 500 mL 2022-02 12:23: 00 12-18 14:00 :00 No 500mL at 999 mL/hr, 500 mL, IV Infusion, ONCE, 1 dose, On 12/18/22 at 0630, STAT [facility] NaCl 0.9% (NS) bolus infusion 500 mL 2022-02 06:30: 00 12-18 05:49 :00 No 500mL at 999 mL/hr, 500 mL, IV Piggyback, ONCE, 1 dose, On 12/18/22 at 0030, STAT [facility] metroNIDAZO LE (FLAGYL) tablet 500 mg 2022-02 06:00: 00 12-18 18:38 :50 No 500mg 500 mg, Oral, Q12H, 6 doses, First dose on 12/18/22 at 0000, Last dose on Tue12/20/22 at 0800, Routine
Reason for Anti-Infec tive: Surgical Prophylaxi s
Surgi driss Prophylaxi s: Abdominal< br>Duratio n of therapy: within 24 hours of surgery [facility] ketorolac (TORADOL) injection 30 mg 2022-02 04:00: 00 12-18 16:47 :00 No 30mg 30 mg, Slow IV Push, Q6H, 3 doses, First dose on Tue12/17/22 at 2200, Last dose on 12/18/22 at 0600, Routine [facility] NaCl 0.9% (NS) IV infusion 1,000 mL 2022-02 23:47: 00 12-18 12:24 :09 No 1000mL at 125 mL/hr, IV Infusion, CONTINUOUS , Starting on Tue12/17/22 at 1800, Until 12/18/22 at 0624, Routine [facility] lactated ringers IV infusion 1,000 mL 2022-02 23:00: 00 12-20 13:54 :23 No 1000mL at 125 mL/hr, 1,000 mL, IV Infusion, CONTINUOUS , Starting on Tue12/17/22 at 1700, Until Tue12/20/22 at 0754, Routine [facility] ketorolac (TORADOL) injection 30 mg 2022-02 22:45: 00 12-17 22:02 :00 No 30mg 30 mg, Slow IV Push, ONCE, 1 dose, On Tue12/17/22 at 1645, Routine [facility] lactated ringers IV infusion 500 mL 2022-02 21:55: 00 12-17 21:57 :00 No 500mL at 999 mL/hr, 500 mL, Intravenou s, ONCE, 1 dose, On Tue12/17/22 at 1600, Routine [facility] polyethylen e glycol 3350 powder 17 g 2022-02 16:45: 00 12-19 14:59 :00 No 17g 17 g, Oral, DAILY, 2 doses, First dose on Tue12/17/22 at 1045, Last dose on Tue12/18/22 at 0900, Routine [facility] FENTanyl PF (SUBLIMAZE (PF)) injection 100 mcg 2022-02 09:45: 00 12-17 09:04 :00 No 100ug 100 mcg, Slow IV Push, ONCE, 1 dose, On Tue12/17/22 at 0345, Routine [facility] docusate (COLACE) capsule 100 mg 2022-02 02:00: 00 Yes 100mg 100 mg, Oral, Q12H, First dose on Tue12/16/22 at 2000, Until Discontinu ed, Routine [facility] FENTanyl PF (SUBLIMAZE (PF)) injection 50 mcg 2022-02 22:00: 00 12-17 04:11 :00 No 50ug 50 mcg, Slow IV Push, ONCE, 1 dose, On Tue12/16/22 at 1600, STAT [facility] FENTanyl PF (SUBLIMAZE (PF)) injection 25 mcg 2022-02 19:45: 00 12-16 20:00 :00 No 25ug 25 mcg, Slow IV Push, ONCE, 1 dose, On [place] 12/16/22 at 1345, Routine [facility] simethicone (GAS RELIEF (SIMETHICON E)) chewable tablet 160 mg 2022-02 19:00: 00 Yes 160mg 160 mg, Oral, PC+HS, First dose on [place] 12/16/22 at 1300, Until Discontinu ed, Routine [facility] ketorolac (TORADOL) injection 30 mg 2022-02 18:00: 00 12-17 11:35 :00 No 30mg 30 mg, Slow IV Push, Q6H, 4 doses, First dose on Tue12/16/22 at 1200, Last dose on Tue12/17/22 at 0600, Routine [facility] lactated ringers IV infusion 500 mL 2022-02 17:15: 00 Yes 500mL at 50 mL/hr, 500 mL, IV Infusion, CONTINUOUS , Starting on [place] 12/16/22 at 1115, Until Discontinu ed, Routine, PACU [facility] FENTanyl PF (SUBLIMAZE (PF)) injection 25 mcg 2022-02 17:09: 21 12-16 17:59 :10 No 25ug 25 mcg, Slow IV Push, Q5MIN PRN, 4 doses, Starting on [place] 12/16/22 at 1109, Until [place] 12/16/22 at 1159, Routine, Pain (scale 4-6), PACU [facility] lactated ringers IV infusion 1,000 mL 2022-02 16:30: 00 Yes 1000mL at 125 mL/hr, 1,000 mL, IV Infusion, CONTINUOUS , Starting on [place] 12/16/22 at 1030, Until Discontinu ed, Routine [facility] ondansetron (ZOFRAN (PF)) injection 4 mg 2022-02 16:29: 31 Yes 4mg 4 mg, Slow IV Push, Q4HPRN, Starting on [place] 12/16/22 at 1029, Until Discontinu ed, Routine, Nausea and Vomiting (N/V) [facility] HYDROcodone -acetaminop hen (NORCO 5) 5-325 mg tablet 1 tablet 2022-02 16:29: 28 Yes 1{tbl} 1 tablet, Oral, Q6HPRN, Starting on [place] 12/16/22 at 1029, Until Discontinu ed, Routine, Pain (scale 4-6) [facility] water for irrigation irrigation solution 2022-02 16:06: 00 12-16 16:46 :34 No PRN, Starting on [place] 12/16/22 at 1006, Until [place] 12/16/22 at 1046, Routine, Intra-op [facility] vancomycin (VANCOCIN) 1 g in sodium chloride 0.9 % irrigation 2022-02 15:55: 00 12-16 16:46 :34 No PRN, Starting on [place] 12/16/22 at 0955, Until [place] 12/16/22 at 1046, 1,000 mL, Intra-op [facility] bupivacaine (preserv free) (SENSORCAIN E MPF) 0.25 % (2.5 mg/mL) injection 2022-02 15:55: 00 12-16 16:46 :33 No PRN, Starting on [place] 12/16/22 at 0955, Until [place] 12/16/22 at 1046, Routine, Intra-op [facility] vasopressin (VASOSTRICT ) injection 2022-02 14:45: 00 12-16 16:46 :33 No PRN, Starting on [place] 12/16/22 at 0845, Until [place] 12/16/22 at 1046, Routine, Intra-op [facility] sodium chloride 0.9 % irrigation solution 2022-02 14:30: 00 12-16 16:46 :33 No PRN, Starting on [place] 12/16/22 at 0830, Until [place] 12/16/22 at 1046, Intra-op [facility] bupivacaine (preserv free) 0.5% (SENSORCAIN E MPF) injection 2022-02 14:03: 00 12-16 16:46 :33 No PRN, Starting on [place] 12/16/22 at 0803, Until [place] 12/16/22 at 1046, Routine, Intra-op [facility] IBUPROFEN ORAL 2022-02 10:58: 25 12-16 00:00 :00 No [facility]PROFEN [facility] IBUPROFEN ORAL 2022-02 06:42: 37 Yes IBUPROFEN [facility] ibuprofen 800 mg tablet 2022-02 00:00: 00 01-04 00:00 :00 No [id number] 800mg Take 1 tablet by mouth every 8 (eight) hours as needed for Pain (scale 1-3) or Pain (scale 4-6). [facility] oxyCODONE-a cetaminophe n 5-325 mg per tablet 2022-02 00:00: 00 01-04 00:00 :00 No [id number] 1{tbl} Take 1 tablet by mouth every 6 (six) hours as needed for Pain (scale 7-10) for up to 7 days. Indication s: acute pain [facility] polyethylen e glycol 3350 17 gram/dose powder 2022-02 00:00: 00 01-04 00:00 :00 No [id number] 17g Take 17 g by mouth in the morning. [facility] metroNIDAZO LE (FLAGYL) 500 mg tablet 2022-02 00:00: 00 01-04 00:00 :00 No [id number] 500mg Take 1 tablet by mouth in the morning and 1 tablet in the evening. Do all this for 7 days. [facility] simethicone 80 mg chewable tablet 2022-02 00:00: 00 01-04 00:00 :00 No [id number] 160mg Take 2 tablets by mouth after meals and at bedtime. [facility] IBUPROFEN ORAL 2022-02 13:10: 00 Yes IBUPROFEN [facility] tobramycin 0.3 % ophthalmic drops 2022-02 1 00:00: 00 Yes 1[drp] Place 1 Drop in left eye 4 (four) times daily. [facility] olopatadine (PATADAY ONCE DAILY RELIEF) 0.7 % Drop 2022-02 00:00: 00 12-16 00:00 :00 No [id number] 1[drp] Place 1 Drop in each eye in the morning. [facility] IBUPROFEN ORAL 10-29 13:22: 01 Yes IBUPROFEN [facility] medroxyPROG ESTERone (DEPO-PROVE RA) syringe 150 mg 10-19 19:45: 00 10-19 18:54 :00 No [id number] 150mg [facility] fluconazole (DIFLUCAN) 150 mg tablet 09-30 00:00: 00 10-01 04:59 :00 No [id number] 150mg Take 1 tablet by mouth once now for 1 dose. [facility] valACYclovi r (VALTREX) 500 mg tablet 09-28 00:00: 00 01-04 00:00 :00 No [id number] 500mg Take 1 tablet by mouth in the morning and 1 tablet in the evening. [facility] phenazopyri dine (PYRIDIUM) 200 mg tablet 08-28 00:00: 00 12-16 00:00 :00 No [id number] 200mg Take 1 tablet by mouth in the morning and 1 tablet at noon and 1 tablet in the evening. Take after meals. [facility] fluconazole (DIFLUCAN) 150 mg tablet 08-28 00:00: 00 09-30 00:00 :00 No [id number] 150mg Take 1 tablet by mouth in the morning. [facility] fluconazole (DIFLUCAN) 150 mg tablet 08-27 00:00: 00 08-28 00:00 :00 No [id number] 150mg Take 1 tablet by mouth in the morning. [facility] phenazopyri dine (PYRIDIUM) 200 mg tablet 7-21 00:00: 00 08-28 00:00 :00 No [id number] 200mg Take 1 tablet by mouth in the morning and 1 tablet at noon and 1 tablet in the evening. Take after meals. [facility] IBUPROFEN ORAL 3-10 09:03: 30 Yes IBUPROFEN [facility] terconazole 80 mg vaginal suppository 3-10 00:00: 00 12-16 00:00 :00 No [id number] 80mg Insert 1 Suppositor y into vagina at bedtime. [facility] etonogestre l (NEXPLANON SDRM) 04-06 13:02: 59 04-06 00:00 :00 No by Subdermal route. [facility] hydrocortis one 2.5 % rectal cream 04-05 00:00: 00 12-16 00:00 :00 No [id number] Insert into rectum 2 (two) times daily. [facility] norgestimat e-ethinyl estradioL (ORTHO TRI-CYCLEN, 28,) 0.18/0.215/ 0.25 mg-35 mcg (28) tablet 04-05 00:00: 00 10-19 00:00 :00 No [id number] 1{tbl} Take 1 tablet by mouth in the morning. [facility] fluconazole 200 mg tablet 04-05 00:00: 00 09-30 00:00 :00 No [id number] 200mg Take 1 tablet by mouth every 3 (three) days. [facility] fluconazole 200 mg tablet 2020-02 2- 00:00: 00 No 1mg fluconazole 200 mg tablet 2020-02 00:00: 00 No 1mg Bactrim DS 800 mg-160 mg tablet - 00:00: 00 No 1mg Diflucan 150 mg tablet - 00:00: 00 No 1mg diclofenac 3 % topical gel 3-16 00:00: 00 No 1% fluconazole 150 mg tablet 2019-02 00:00: 00 No mg hydroxyzine HCl 25 [...] 04-03 00:00: 00 04-13 05:59 :00 No [id number] 500mg Take 1 capsule by mouth 2 (two) times daily for 10 days. [facility] fluconazole (DIFLUCAN) 150 mg tablet 04-03 00:00: 04-04 05:59 :00 No [id number] 150mg Take 1 tablet by mouth once now for 1 dose. [facility] etonogestre l (NEXPLANON SDRM) 03-08 15:31: 14 Yes by Subdermal route. [facility] etonogestre l (NEXPLANON SDRM) 03-08 09:31: 14 Yes by Subdermal route. [facility] triamcinolo ne acetonide 0.5 % topical ointment [...] No 3mg tobramycin 0.3 % eye drops 08-23 00:00: 00 No 1% norgestimat e-ethinyl estradiol (ORTHO TRI-CYCLEN, 28,) 0.18/0.215/ 0.25 mg-35 mcg (28) tablet 2015-02 00:00: 00 10-19 00:00 :00 No [id number] 1{tbl} Take 1 tablet by mouth daily. [facility] Simethicone 125 MG Simethicone 125 MG No 1{table t_after _meals_ and_at_ bedtime _as_nee ded} QID Simethicon e 125 MG No Immunizations Ordered Immunization Name Filled Immunization Name Date Status Comments Source SARS-COV-2 COVID-19 VACCINE - (MODERNA) 2020-07-22 00:00:00 Completed [facility] SARS-COV-2 COVID-19 VACCINE - (MODERNA) 2020-07-22 00:00:00 Completed [facility] SARS-COV-2 COVID-19 VACCINE - (MODERNA) 2020-07-22 00:00:00 Completed [facility] SARS-COV-2 COVID-19 VACCINE - (MODERNA) 2020-07-22 00:00:00 Completed SARS-COV-2 COVID-19 VACCINE - (MODERNA) 2020-07-22 00:00:00 Completed [facility] SARS-COV-2 COVID-19 VACCINE - (MODERNA) 2020-07-22 00:00:00 Completed [facility] SARS-COV-2 COVID-19 VACCINE - (MODERNA) 2020-07-22 00:00:00 Completed [facility] SARS-COV-2 COVID-19 VACCINE - (MODERNA) 2020-07-22 00:00:00 Completed [facility] SARS-COV-2 COVID-19 VACCINE - (MODERNA) 2020-07-22 00:00:00 Completed [facility] SARS-COV-2 COVID-19 VACCINE - (MODERNA) 2020-07-22 00:00:00 Completed [facility] SARS-COV-2 COVID-19 VACCINE - (MODERNA) 2020-07-22 00:00:00 Completed [facility] SARS-COV-2 COVID-19 VACCINE - (MODERNA) 2020-06-24 00:00:00 Completed [facility] SARS-COV-2 COVID-19 VACCINE - (MODERNA) 2020-06-24 00:00:00 Completed [facility] SARS-COV-2 COVID-19 VACCINE - (MODERNA) 2020-06-24 00:00:00 Completed [facility] SARS-COV-2 COVID-19 VACCINE - (MODERNA) 2020-06-24 00:00:00 Completed [facility] SARS-COV-2 COVID-19 VACCINE - (MODERNA) 2020-06-24 00:00:00 Completed [facility] SARS-COV-2 COVID-19 VACCINE - (MODERNA) 2020-06-24 00:00:00 Completed [facility] SARS-COV-2 COVID-19 VACCINE - (MODERNA) 2020-06-24 00:00:00 Completed [facility] SARS-COV-2 COVID-19 VACCINE - (MODERNA) 2020-06-24 00:00:00 Completed [facility] SARS-COV-2 COVID-19 VACCINE - (MODERNA) 2020-06-24 00:00:00 Completed [facility] SARS-COV-2 COVID-19 VACCINE - (MODERNA) 2020-06-24 00:00:00 Completed [facility] SARS-COV-2 COVID-19 VACCINE - (MODERNA) 2020-06-24 00:00:00 Completed [facility] Influenza Virus Vaccine Quad .5 mL IM 6+ MO 2018-12-19 00:00:00 Completed [facility] Influenza Virus Vaccine Quad .5 mL IM 6+ MO 2018-12-19 00:00:00 Completed [facility] Influenza Virus Vaccine Quad .5 mL IM 6+ MO 2018-12-19 00:00:00 Completed [facility] Influenza Virus Vaccine Quad .5 mL IM 6+ MO 2018-12-19 00:00:00 Completed [facility] Influenza Virus Vaccine Quad .5 mL IM 6+ MO 2018-12-19 00:00:00 Completed [facility] Influenza Virus Vaccine Quad .5 mL IM 6+ MO (FLUZONE/FLULAVAL/F LUARIX) 2018-12-19 00:00:00 Completed [facility] Influenza Virus Vaccine Quad .5 mL IM 6+ MO 2018-12-19 00:00:00 Completed [facility] Influenza Virus Vaccine Quad .5 mL IM 6+ MO 2018-12-19 00:00:00 Completed [facility] Influenza Virus Vaccine Quad .5 mL IM 6+ MO 2018-12-19 00:00:00 Completed [facility] Influenza Virus Vaccine Quad .5 mL IM 6+ MO 2018-12-19 00:00:00 Completed [facility] Influenza Virus Vaccine Quad .5 mL IM 6+ MO 2018-12-19 00:00:00 Completed [facility] Influenza Virus Vaccine Quad .5 mL IM 6+ MO 2018-12-19 00:00:00 Completed [facility] Influenza Virus Vaccine Quad .5 mL IM 6+ MO 2018-12-19 00:00:00 Completed [facility] Influenza Virus Vaccine Quad .5 mL IM 6+ MO (FLUZONE/FLULAVAL/F LUARIX) 2018-12-19 00:00:00 Completed [facility] Influenza Virus Vaccine Quad .5 mL IM 6+ MO 2018-12-19 00:00:00 Completed [facility] Influenza Virus Vaccine Quad .5 mL IM 6+ MO (FLUZONE/FLULAVAL/F LUARIX) 2018-12-19 00:00:00 Completed [facility] Influenza Virus Vaccine Quad .5 mL IM 6+ MO 2018-12-19 00:00:00 Completed [facility] Influenza, seasonal, inj 2018-01-26 00:00:00 Completed TDAP 2017-04-27 00:00:00 Completed [facility] TDAP 2017-04-27 00:00:00 Completed [facility] TDAP 2017-04-27 00:00:00 Completed [facility] TDAP 2017-04-27 00:00:00 Completed [facility] TDAP 2017-04-27 00:00:00 Completed [facility] TDAP 2017-04-27 00:00:00 Completed [facility] TDAP 2017-04-27 00:00:00 Completed [facility] TDAP 2017-04-27 00:00:00 Completed [facility] TDAP 2017-04-27 00:00:00 Completed [facility] TDAP 2017-04-27 00:00:00 Completed [facility] TDAP 2017-04-27 00:00:00 Completed [facility] TDAP > 7 Years-Adacel TDAP > 7 Years-Adacel 2017-04-27 00:00:00 Completed [facility] Tdap 2015-08-19 00:00:00 Completed [facility] TDAP 2015-08-19 00:00:00 Completed [facility] TDAP 2015-08-19 00:00:00 Completed [facility] Tdap 2015-08-19 00:00:00 Completed [facility] TDAP 2015-08-19 00:00:00 Completed [facility] TDAP 2015-08-19 00:00:00 Completed [facility] TDAP 2015-08-19 00:00:00 Completed [facility] TDAP 2015-08-19 00:00:00 Completed [facility] TDAP 2015-08-19 00:00:00 Completed [facility] TDAP 2015-08-19 00:00:00 Completed [facility] TDAP 2015-08-19 00:00:00 Completed [facility] TDAP 2015-08-19 00:00:00 Completed [facility] TDAP 2015-08-19 00:00:00 Completed [facility] TDAP 2015-08-19 00:00:00 Completed [facility] Tdap 2015-08-19 00:00:00 Completed [facility] TDAP 2015-08-19 00:00:00 Completed [facility] Tdap 2015-08-19 00:00:00 Completed [facility] PPD (TB) 2015-06-16 00:00:00 Completed [facility] PPD (TB) 2015-06-16 00:00:00 Completed [facility] PPD (TB) 2015-06-16 00:00:00 Completed [facility] PPD (TB) 2015-06-16 00:00:00 Completed [facility] PPD (TB) 2015-06-16 00:00:00 Completed [facility] PPD (TB) 2015-06-16 00:00:00 Completed [facility] PPD (TB) 2015-06-16 00:00:00 Completed [facility] PPD (TB) 2015-06-16 00:00:00 Completed [facility] PPD (TB) 2015-06-16 00:00:00 Completed [facility] PPD (TB) 2015-06-16 00:00:00 Completed [facility] PPD (TB) 2015-06-16 00:00:00 Completed [facility] PPD (TB) 2015-06-16 00:00:00 Completed [facility] PPD (TB) 2015-06-16 00:00:00 Completed [facility] PPD (TB) 2015-06-16 00:00:00 Completed [facility] PPD (TB) 2015-06-16 00:00:00 Completed [facility] PPD (TB) 2015-06-16 00:00:00 Completed [facility] PPD (TB) 2015-06-16 00:00:00 Completed [facility] PPD (TB) Unknown Completed [facility] TDAP Unknown Completed [facility] Influenza Virus Vaccine Quad .5 mL IM 6+ MO (FLUZONE/FLULAVAL/F LUARIX) Unknown Completed [facility] SARS-COV-2 COVID-19 VACCINE - (MODERNA) Unknown Completed [facility] PPD (TB) Unknown Completed [facility] TDAP Unknown Completed [facility] Influenza Virus Vaccine Quad .5 mL IM 6+ MO (FLUZONE/FLULAVAL/F LUARIX) Unknown Completed [facility] SARS-COV-2 COVID-19 VACCINE - (MODERNA) Unknown Completed [facility] PPD (TB) Unknown Completed [facility] TDAP Unknown Completed [facility] Influenza Virus Vaccine Quad .5 mL IM 6+ MO (FLUZONE/FLULAVAL/F LUARIX) Unknown Completed [facility] SARS-COV-2 COVID-19 VACCINE - (MODERNA) Unknown Completed [facility] PPD (TB) Unknown Completed [facility] TDAP Unknown Completed [facility] Influenza Virus Vaccine Quad .5 mL IM 6+ MO (FLUZONE/FLULAVAL/F LUARIX) Unknown Completed [facility] SARS-COV-2 COVID-19 VACCINE - (MODERNA) Unknown Completed [facility] PPD (TB) Unknown Completed [facility] TDAP Unknown Completed [facility] Influenza Virus Vaccine Quad .5 mL IM 6+ MO (FLUZONE/FLULAVAL/F LUARIX) Unknown Completed [facility] SARS-COV-2 COVID-19 VACCINE - (MODERNA) Unknown Completed [facility] PPD (TB) Unknown Completed [facility] TDAP Unknown Completed [facility] Influenza Virus Vaccine Quad .5 mL IM 6+ MO (FLUZONE/FLULAVAL/F LUARIX) Unknown Completed [facility] SARS-COV-2 COVID-19 VACCINE - (MODERNA) Unknown Completed [facility] PPD (TB) Unknown Completed [facility] TDAP Unknown Completed [facility] Influenza Virus Vaccine Quad .5 mL IM 6+ MO (FLUZONE/FLULAVAL/F LUARIX) Unknown Completed [facility] SARS-COV-2 COVID-19 VACCINE - (MODERNA) Unknown Completed [facility] PPD (TB) Unknown Completed [facility] TDAP Unknown Completed [facility] Influenza Virus Vaccine Quad .5 mL IM 6+ MO (FLUZONE/FLULAVAL/F LUARIX) Unknown Completed [facility] SARS-COV-2 COVID-19 VACCINE - (MODERNA) Unknown Completed [facility] PPD (TB) Unknown Completed [facility] Influenza Virus Vaccine Quad .5 mL IM 6+ MO (FLUZONE/FLULAVAL/F LUARIX) Unknown Completed [facility] TDAP Unknown Completed [facility] SARS-COV-2 COVID-19 VACCINE - (MODERNA) Unknown Completed [facility] PPD (TB) Unknown Completed [facility] TDAP Unknown Completed [facility] Influenza Virus Vaccine Quad .5 mL IM 6+ MO (FLUZONE/FLULAVAL/F LUARIX) Unknown Completed [facility] SARS-COV-2 COVID-19 VACCINE - (MODERNA) Unknown Completed [facility] PPD (TB) Unknown Completed [facility] TDAP Unknown Completed [facility] Influenza Virus Vaccine Quad .5 mL IM 6+ MO (FLUZONE/FLULAVAL/F LUARIX) Unknown Completed [facility] SARS-COV-2 COVID-19 VACCINE - (MODERNA) Unknown Completed [facility] PPD (TB) Unknown Completed [facility] TDAP Unknown Completed [facility] Influenza Virus Vaccine Quad .5 mL IM 6+ MO (FLUZONE/FLULAVAL/F LUARIX) Unknown Completed [facility] SARS-COV-2 COVID-19 VACCINE - (MODERNA) Unknown Completed [facility] PPD (TB) Unknown Completed [facility] Influenza Virus Vaccine Quad .5 mL IM 6+ MO (FLUZONE/FLULAVAL/F LUARIX) Unknown Completed [facility] TDAP Unknown Completed [facility] SARS-COV-2 COVID-19 VACCINE - (MODERNA) Unknown Completed [facility] PPD (TB) Unknown Completed [facility] Influenza Virus Vaccine Quad .5 mL IM 6+ MO (FLUZONE/FLULAVAL/F LUARIX) Unknown Completed [facility] TDAP Unknown Completed [facility] SARS-COV-2 COVID-19 VACCINE - (MODERNA) Unknown Completed [facility] PPD (TB) Unknown Completed [facility] Influenza Virus Vaccine Quad .5 mL IM 6+ MO (FLUZONE/FLULAVAL/F LUARIX) Unknown Completed [facility] TDAP Unknown Completed [facility] SARS-COV-2 COVID-19 VACCINE - (MODERNA) Unknown Completed [facility] PPD (TB) Unknown Completed [facility] TDAP Unknown Completed [facility] Influenza Virus Vaccine Quad .5 mL IM 6+ MO (FLUZONE/FLULAVAL/F LUARIX) Unknown Completed [facility] SARS-COV-2 COVID-19 VACCINE - (MODERNA) Unknown Completed [facility] PPD (TB) Unknown Completed [facility] TDAP Unknown Completed [facility] Influenza Virus Vaccine Quad .5 mL IM 6+ MO (FLUZONE/FLULAVAL/F LUARIX) Unknown Completed [facility] SARS-COV-2 COVID-19 VACCINE - (MODERNA) Unknown Completed [facility] PPD (TB) Unknown Completed [facility] TDAP Unknown Completed [facility] Influenza Virus Vaccine Quad .5 mL IM 6+ MO (FLUZONE/FLULAVAL/F LUARIX) Unknown Completed [facility] SARS-COV-2 COVID-19 VACCINE - (MODERNA) Unknown Completed [facility] PPD (TB) Unknown Completed [facility] Influenza Virus Vaccine Quad .5 mL IM 6+ MO (FLUZONE/FLULAVAL/F LUARIX) Unknown Completed [facility] TDAP Unknown Completed [facility] SARS-COV-2 COVID-19 VACCINE - (MODERNA) Unknown Completed [facility] PPD (TB) Unknown Completed [facility] TDAP Unknown Completed [facility] Influenza Virus Vaccine Quad .5 mL IM 6+ MO (FLUZONE/FLULAVAL/F LUARIX) Unknown Completed [facility] SARS-COV-2 COVID-19 VACCINE - (MODERNA) Unknown Completed [facility] PPD (TB) Unknown Completed [facility] Influenza Virus Vaccine Quad .5 mL IM 6+ MO (FLUZONE/FLULAVAL/F LUARIX) Unknown Completed [facility] TDAP Unknown Completed [facility] SARS-COV-2 COVID-19 VACCINE - (MODERNA) Unknown Completed [facility] PPD (TB) Unknown Completed [facility] TDAP Unknown Completed [facility] Influenza Virus Vaccine Quad .5 mL IM 6+ MO (FLUZONE/FLULAVAL/F LUARIX) Unknown Completed [facility] SARS-COV-2 COVID-19 VACCINE - (MODERNA) Unknown Completed [facility] PPD (TB) Unknown Completed [facility] TDAP Unknown Completed [facility] Influenza Virus Vaccine Quad .5 mL IM 6+ MO (FLUZONE/FLULAVAL/F LUARIX) Unknown Completed [facility] SARS-COV-2 COVID-19 VACCINE - (MODERNA) Unknown Completed [facility] PPD (TB) Unknown Completed [facility] TDAP Unknown Completed [facility] Influenza Virus Vaccine Quad .5 mL IM 6+ MO (FLUZONE/FLULAVAL/F LUARIX) Unknown Completed [facility] SARS-COV-2 COVID-19 VACCINE - (MODERNA) Unknown Completed [facility] PPD (TB) Unknown Completed [facility] TDAP Unknown Completed [facility] Influenza Virus Vaccine Quad .5 mL IM 6+ MO (FLUZONE/FLULAVAL/F LUARIX) Unknown Completed [facility] SARS-COV-2 COVID-19 VACCINE - (MODERNA) Unknown Completed [facility] PPD (TB) Unknown Completed [facility] Influenza Virus Vaccine Quad .5 mL IM 6+ MO (FLUZONE/FLULAVAL/F LUARIX) Unknown Completed [facility] SARS-COV-2 COVID-19 VACCINE - (MODERNA) Unknown Completed [facility] TDAP Unknown Completed [facility] PPD (TB) Unknown Completed [facility] Influenza Virus Vaccine Quad .5 mL IM 6+ MO (FLUZONE/FLULAVAL/F LUARIX) Unknown Completed [facility] SARS-COV-2 COVID-19 VACCINE - (MODERNA) Unknown [facility] PPD (TB) Unknown Completed [facility] TDAP Unknown Completed [facility] Influenza Virus Vaccine Quad .5 mL IM 6+ MO (FLUZONE/FLULAVAL/F LUARIX) Unknown Completed [facility] SARS-COV-2 COVID-19 VACCINE - (MODERNA) Unknown Completed [facility] PPD (TB) Unknown Completed [facility] TDAP Unknown Completed [facility] Influenza Virus Vaccine Quad .5 mL IM 6+ MO (FLUZONE/FLULAVAL/F LUARIX) Unknown Completed [facility] SARS-COV-2 COVID-19 VACCINE - (MODERNA) Unknown Completed [facility] PPD (TB) Unknown Completed [facility] TDAP Unknown Completed [facility] Influenza Virus Vaccine Quad .5 mL IM 6+ MO (FLUZONE/FLULAVAL/F LUARIX) Unknown Completed [facility] SARS-COV-2 COVID-19 VACCINE - (MODERNA) Unknown Completed [facility] PPD (TB) Unknown Completed [facility] Influenza Virus Vaccine Quad .5 mL IM 6+ MO (FLUZONE/FLULAVAL/F LUARIX) Unknown Completed [facility] SARS-COV-2 COVID-19 VACCINE - (MODERNA) Unknown Completed [facility] TDAP Unknown Completed [facility] PPD (TB) Unknown Completed [facility] TDAP Unknown Completed [facility] Influenza Virus Vaccine Quad .5 mL IM 6+ MO (FLUZONE/FLULAVAL/F LUARIX) Unknown Completed [facility] SARS-COV-2 COVID-19 VACCINE - (MODERNA) Unknown Completed [facility] PPD (TB) Unknown Completed [facility] Influenza Virus Vaccine Quad .5 mL IM 6+ MO (FLUZONE/FLULAVAL/F LUARIX) Unknown Completed [facility] SARS-COV-2 COVID-19 VACCINE - (MODERNA) Unknown Completed [facility] TDAP Unknown Completed [facility] PPD (TB) Unknown Completed [facility] TDAP Unknown Completed [facility] Influenza Virus Vaccine Quad .5 mL IM 6+ MO (FLUZONE/FLULAVAL/F LUARIX) Unknown Completed [facility] SARS-COV-2 COVID-19 VACCINE - (MODERNA) Unknown Completed [facility] PPD (TB) Unknown Completed [facility] Influenza Virus Vaccine Quad .5 mL IM 6+ MO (FLUZONE/FLULAVAL/F LUARIX) Unknown Completed [facility] SARS-COV-2 COVID-19 VACCINE - (MODERNA) Unknown Completed [facility] PPD (TB) Unknown Completed [facility] Influenza Virus Vaccine Quad .5 mL IM 6+ MO (FLUZONE/FLULAVAL/F LUARIX) Unknown Completed [facility] SARS-COV-2 COVID-19 VACCINE - (MODERNA) Unknown Completed [facility] TDAP Unknown Completed [facility] PPD (TB) Unknown Completed [facility] TDAP Unknown Completed [facility] Influenza Virus Vaccine Quad .5 mL IM 6+ MO (FLUZONE/FLULAVAL/F LUARIX) Unknown Completed [facility] SARS-COV-2 COVID-19 VACCINE - (MODERNA) Unknown Completed [facility] TDAP Unknown Completed [facility] PPD (TB) Unknown Completed [facility] TDAP Unknown Completed [facility] Influenza Virus Vaccine Quad .5 mL IM 6+ MO (FLUZONE/FLULAVAL/F LUARIX) Unknown Completed [facility] SARS-COV-2 COVID-19 VACCINE - (MODERNA) Unknown Completed [facility] Fluarix (IIV4) - SDS - 0.5mL Fluarix (IIV4) - SDS - 0.5mL Unknown Completed [facility] Adacel (Tdap) Adacel (Tdap) Unknown Completed [facility] Fluarix (IIV3) - SDS - 0.5mL Fluarix (IIV3) - SDS - 0.5mL Unknown Completed [facility] Adacel (Tdap) Adacel (Tdap) Unknown Completed [facility] Adacel (Tdap) Adacel (Tdap) Unknown Completed [facility] Adacel (Tdap) Adacel (Tdap) Unknown Completed [facility] Fluarix (IIV4) - SDS - 0.5mL Fluarix (IIV4) - SDS - 0.5mL Unknown Completed [facility] Adacel (Tdap) Adacel (Tdap) Unknown Completed [facility] Fluarix (IIV4) - SDS - 0.5mL Fluarix (IIV4) - SDS - 0.5mL Unknown Completed [facility] Adacel (Tdap) Adacel (Tdap) Unknown Completed [facility] Vital Signs Vital Name Observation Time Observation Value Comments S our Systolic blood pressure 2024-05-26 01:28:00 129 mm[Hg] [facility] Diastolic blood pressure 2024-05-26 01:28:00 84 mm[Hg] [facility] Heart rate 2024-05-26 01:28:00 71 /min [facility] Body temperature 2024-05-26 01:28:00 36.72 Tiffanie [facility] Respiratory rate 2024-05-26 01:28:00 17 /min [facility] Body height 2024-05-26 01:28:00 149.9 cm [facility] Body weight 2024-05-26 01:28:00 76.839 kg [facility] BMI 2024-05-26 01:28:00 34.21 kg/m2 [facility] Oxygen saturation in Arterial blood by Pulse oximetry 2024-05-26 01:28:00 99 /min [facility] Systolic blood pressure 2024-02-17 21:13:00 115 mm[Hg] [facility] Diastolic blood pressure 2024-02-17 21:13:00 69 mm[Hg] [facility] Heart rate 2024-02-17 21:13:00 72 /min [facility] Body height 2024-02-17 21:13:00 149.9 cm [facility] Body weight 2024-02-17 21:13:00 76.703 kg [facility] BMI 2024-02-17 21:13:00 34.15 kg/m2 [facility] Systolic blood pressure 2024-01-17 14:05:00 115 mm[Hg] [facility] Diastolic blood pressure 2024-01-17 14:05:00 78 mm[Hg] [facility] Heart rate 2024-01-17 14:05:00 70 /min [facility] Body temperature 2024-01-17 14:05:00 36.78 Tiffanie [facility] Body height 2024-01-17 14:05:00 149.9 cm [facility] Body weight 2024-01-17 14:05:00 74.254 kg [facility] BMI 2024-01-17 14:05:00 33.06 kg/m2 [facility] Oxygen saturation in Arterial blood by Pulse oximetry 2024-01-17 14:05:00 97 /min [facility] Systolic blood pressure 2023-11-14 16:04:00 114 mm[Hg] [facility] Diastolic blood pressure 2023-11-14 16:04:00 77 mm[Hg] [facility] Heart rate 2023-11-14 16:04:00 68 /min [facility] Body temperature 2023-11-14 16:04:00 36.56 Tiffanie [facility] Body height 2023-11-14 16:04:00 149.9 cm [facility] Body weight 2023-11-14 16:04:00 72.122 kg [facility] BMI 2023-11-14 16:04:00 32.11 kg/m2 [facility] Oxygen saturation in Arterial blood by Pulse oximetry 2023-11-14 16:04:00 97 /min [facility] height 2023-04-28 13:00:00 58 [in_i] Commo n [facility] weight 2023-04-28 13:00:00 157 [lb_av] Comm on [facility] temperature 2023-04-28 13:00:00 98.6 [degF] Com mon [facility] bmi 2023-04-28 13:00:00 32.81 kg/m2 Comm on [facility] oximetry 2023-04-28 13:00:00 97 % Commo n [facility] respiratory rate 2023-04-28 13:00:00 17 /min Common [facility] blood pressure systolic 2023-04-28 13:00:00 119 mm[Hg] Common [facility] blood pressure diastolic 2023-04-28 13:00:00 70 mm[Hg] [facility] Systolic blood pressure 2023-04-15 16:34:00 117 mm[Hg] [facility] Diastolic blood pressure 2023-04-15 16:34:00 82 mm[Hg] [facility] Heart rate 2023-04-15 16:34:00 70 /min [facility] Body temperature 2023-04-15 16:34:00 36.83 Tiffanie [facility] Respiratory rate 2023-04-15 16:34:00 12 /min [facility] Body height 2023-04-15 16:34:00 149.9 cm [facility] Body weight 2023-04-15 16:34:00 68.947 kg [facility] BMI 2023-04-15 16:34:00 30.70 kg/m2 [facility] Oxygen saturation in Arterial blood by Pulse oximetry 2023-04-15 16:34:00 97 /min [facility] Systolic blood pressure 2023-04-05 19:49:00 107 mm[Hg] [facility] Diastolic blood pressure 2023-04-05 19:49:00 73 mm[Hg] [facility] Heart rate 2023-04-05 19:49:00 82 /min [facility] Body temperature 2023-04-05 19:49:00 36.72 Tiffanie [facility] Respiratory rate 2023-04-05 19:49:00 18 /min [facility] Body height 2023-04-05 19:49:00 149.9 cm [facility] Body weight 2023-04-05 19:49:00 69.4 kg [facility] BMI 2023-04-05 19:49:00 30.90 kg/m2 [facility] Systolic blood pressure 2023-03-24 15:42:00 117 mm[Hg] [facility] Diastolic blood pressure 2023-03-24 15:42:00 81 mm[Hg] [facility] Heart rate 2023-03-24 15:42:00 74 /[facility] 2023-03-24 15:42:00 36.72 Tiffanie [facility] Respiratory rate 2023-03-24 15:42:00 16 /min [facility] Body height 2023-03-24 15:42:00 149.9 cm [facility] Body weight 2023-03-24 15:42:00 68.765 kg [facility] BMI 2023-03-24 15:42:00 30.62 kg/m2 [facility] Oxygen saturation in Arterial blood by Pulse oximetry 2023-03-24 15:42:00 98 /min [facility] height 2023-02-25 16:00:00 58 [in_i] Commo n [facility] weight 2023-02-25 16:00:00 145 [lb_av] Comm on [facility] temperature 2023-02-25 16:00:00 98.6 [degF] Com mon [facility] bmi 2023-02-25 16:00:00 30.3 kg/m2 Commo n [facility] oximetry 2023-02-25 16:00:00 98 % Commo n [facility] respiratory rate 2023-02-25 16:00:00 16 /min Common [facility] blood pressure systolic 2023-02-25 16:00:00 128 mm[Hg] [facility] blood pressure diastolic 2023-02-25 16:00:00 72 mm[Hg] Common [facility] Systolic blood pressure 2023-02-10 15:33:00 122 mm[Hg] [facility] Diastolic blood pressure 2023-02-10 15:33:00 77 mm[Hg] [facility] Heart rate 2023-02-10 15:33:00 73 /min [facility] Body temperature 2023-02-10 15:33:00 36.72 Tiffanie [facility] Respiratory rate 2023-02-10 15:33:00 16 /min [facility] Body height 2023-02-10 15:33:00 149.9 cm [facility] Body weight 2023-02-10 15:33:00 63.73 kg [facility] BMI 2023-02-10 15:33:00 28.38 kg/m2 [facility] Oxygen saturation in Arterial blood by Pulse oximetry 2023-02-10 15:33:00 100 /min [facility] Systolic blood pressure 2023-01-27 14:57:00 110 mm[Hg] [facility] Diastolic blood pressure 2023-01-27 14:57:00 71 mm[Hg] [facility] Heart rate 2023-01-27 14:57:00 77 /min [facility] Body temperature 2023-01-27 14:57:00 36.33 Tiffanie [facility] Body height 2023-01-27 14:57:00 149.9 cm [facility] Body weight 2023-01-27 14:57:00 63.957 kg [facility] BMI 2023-01-27 14:57:00 28.48 kg/m2 [facility] Oxygen saturation in Arterial blood by Pulse oximetry 2023-01-27 14:57:00 96 /min [facility] Systolic blood pressure 2023-01-17 22:00:00 129 mm[Hg] [facility] Diastolic blood pressure 2023-01-17 22:00:00 72 mm[Hg] [facility] Heart rate 2023-01-17 22:00:00 98 /min [facility] Body temperature 2023-01-17 22:00:00 36.89 Tiffanie [facility] Respiratory rate 2023-01-17 22:00:00 18 /min [facility] Oxygen saturation in Arterial blood by Pulse oximetry 2023-01-17 22:00:00 98 /min [facility] Body height 2023-01-15 15:30:00 149.9 cm [facility] Body weight 2023-01-15 15:30:00 71.215 kg [facility] BMI 2023-01-15 15:30:00 31.71 kg/m2 [facility] Systolic blood pressure 2023-01-04 17:28:00 107 mm[Hg] [facility] Diastolic blood pressure 2023-01-04 17:28:00 61 mm[Hg] [facility] Heart rate 2023-01-04 17:28:00 102 /min [facility] Body temperature 2023-01-04 17:28:00 37.94 Tiffanie [facility] Respiratory rate 2023-01-04 17:28:00 16 /min [facility] Oxygen saturation in Arterial blood by Pulse oximetry 2023-01-04 17:28:00 97 /min [facility] Body weight 2022-12-31 12:00:00 71.623 kg [facility] BMI 2022-12-31 12:00:00 31.89 kg/m2 [facility] Body height 2022-12-18 18:19:00 149.9 cm [facility] Systolic blood pressure 2022-12-18 20:26:00 86 mm[Hg] [facility] Diastolic blood pressure 2022-12-18 20:26:00 57 mm[Hg] [facility] Heart rate 2022-12-18 20:26:00 131 /min [facility] Body temperature 2022-12-18 20:26:00 36.39 Tiffanie [facility] Respiratory rate 2022-12-18 20:26:00 29 /min [facility] Body weight 2022-12-18 20:26:00 79.379 kg [facility] BMI 2022-12-18 20:26:00 36.94 kg/m2 [facility] Oxygen saturation in Arterial blood by Pulse oximetry 2022-12-18 20:26:00 97 /min [facility] Body height 2022-12-18 18:19:00 149.9 cm [facility] Respiratory rate 2022-12-16 17:28:00 18 /min [facility] Oxygen saturation in Arterial blood by Pulse oximetry 2022-12-16 17:28:00 96 /min [facility] Systolic blood pressure 2022-12-16 17:26:00 111 mm[Hg] [facility] Diastolic blood pressure 2022-12-16 17:26:00 64 mm[Hg] [facility] Body temperature 2022-12-16 16:45:00 36.33 Tiffanie [facility] Heart rate 2022-12-16 16:44:00 72 /min [facility] Body height 2022-12-08 18:10:00 149.9 cm [facility] Body weight 2022-12-08 18:10:00 71.668 kg [facility] BMI 2022-12-08 18:10:00 31.91 kg/m2 [facility] Systolic blood pressure 2022-12-13 20:00:00 131 mm[Hg] [facility] Diastolic blood pressure 2022-12-13 20:00:00 75 mm[Hg] [facility] Heart rate 2022-12-13 20:00:00 71 /min [facility] Body temperature 2022-12-13 20:00:00 36.83 Tiffanie [facility] Respiratory rate 2022-12-13 20:00:00 18 /min [facility] Body height 2022-12-13 20:00:00 160 cm [facility] Body weight 2022-12-13 20:00:00 72.576 kg [facility] BMI 2022-12-13 20:00:00 28.34 kg/m2 [facility] Systolic blood pressure 2022-12-13 19:28:00 131 mm[Hg] [facility] Diastolic blood pressure 2022-12-13 19:28:00 75 mm[Hg] [facility] Heart rate 2022-12-13 19:28:00 71 /min [facility] Body temperature 2022-12-13 19:28:00 36.83 Tiffanie [facility] Respiratory rate 2022-12-13 19:28:00 17 /min [facility] Body height 2022-12-13 19:28:00 160 cm [facility] Body weight 2022-12-13 19:28:00 72.848 kg [facility] BMI 2022-12-13 19:28:00 28.45 kg/m2 [facility] Systolic blood pressure 2022-11-29 16:32:00 126 mm[Hg] [facility] Diastolic blood pressure 2022-11-29 16:32:00 78 mm[Hg] [facility] Heart rate 2022-11-29 16:32:00 75 /min [facility] Body temperature 2022-11-29 16:32:00 36.72 Tiffanie [facility] Respiratory rate 2022-11-29 16:32:00 16 /min [facility] Body height 2022-11-29 16:32:00 149.9 cm [facility] Body weight 2022-11-29 16:32:00 71.668 kg [facility] BMI 2022-11-29 16:32:00 31.91 kg/m2 [facility] Systolic blood pressure 2022-11-28 01:23:00 137 mm[Hg] [facility] Diastolic blood pressure 2022-11-28 01:23:00 91 mm[Hg] [facility] Heart rate 2022-11-28 01:23:00 68 /min [facility] Body temperature 2022-11-28 01:23:00 37.17 Tiffanie [facility] Respiratory rate 2022-11-28 01:23:00 18 /min [facility] Body height 2022-11-28 01:23:00 149.9 cm [facility] Body weight 2022-11-28 01:23:00 72.717 kg [facility] BMI 2022-11-28 01:23:00 32.38 kg/m2 [facility] Oxygen saturation in Arterial blood by Pulse oximetry 2022-11-28 01:23:00 97 /min [facility] Systolic blood pressure 2022-11-22 21:21:00 119 mm[Hg] [facility] Diastolic blood pressure 2022-11-22 21:21:00 73 mm[Hg] [facility] Heart rate 2022-11-22 21:21:00 67 /min [facility] Body temperature 2022-11-22 21:21:00 36.67 Tiffanie [facility] Respiratory rate 2022-11-22 21:21:00 17 /min [facility] Body height 2022-11-22 21:21:00 149.9 cm [facility] Body weight 2022-11-22 21:21:00 72.031 kg [facility] BMI 2022-11-22 21:21:00 32.07 kg/m2 [facility] Systolic blood pressure 2022-11-11 18:14:00 126 mm[Hg] [facility] Diastolic blood pressure 2022-11-11 18:14:00 84 mm[Hg] [facility] Heart rate 2022-11-11 18:14:00 67 /min [facility] Body temperature 2022-11-11 18:14:00 37 Tiffanie [facility] Respiratory rate 2022-11-11 18:14:00 17 /min [facility] Body height 2022-11-11 18:14:00 149.9 cm [facility] weight 2022-11-11 18:14:00 71.668 kg [facility] BMI 2022-11-11 18:14:00 31.91 kg/m2 [facility] Oxygen saturation in Arterial blood by Pulse oximetry 2022-11-11 18:14:00 99 /min [facility] Systolic blood pressure 2022-10-29 18:19:00 122 mm[Hg] [facility] Diastolic blood pressure 2022-10-29 18:19:00 74 mm[Hg] [facility] Heart rate 2022-10-29 18:19:00 69 /min [facility] Body temperature 2022-10-29 18:19:00 36.78 Tiffanie [facility] Body height 2022-10-29 18:19:00 149.9 cm [facility] Body weight 2022-10-29 18:19:00 71.94 kg [facility] BMI 2022-10-29 18:19:00 32.03 kg/m2 [facility] Systolic blood pressure 2022-10-19 18:14:00 113 mm[Hg] [facility] Diastolic blood pressure 2022-10-19 18:14:00 73 mm[Hg] [facility] Heart rate 2022-10-19 18:14:00 65 /min [facility] Body temperature 2022-10-19 18:14:00 36.72 Tiffanie [facility] Respiratory rate 2022-10-19 18:14:00 18 /min [facility] Body height 2022-10-19 18:14:00 149.9 cm [facility] Body weight 2022-10-19 18:14:00 70.761 kg [facility] BMI 2022-10-19 18:14:00 31.51 kg/m2 [facility] Systolic blood pressure 2022-09-28 18:42:00 123 mm[Hg] [facility] Diastolic blood pressure 2022-09-28 18:42:00 80 mm[Hg] [facility] Heart rate 2022-09-28 18:42:00 71 /min [facility] Respiratory rate 2022-09-28 18:42:00 18 /min [facility] Body height 2022-09-28 18:42:00 149.9 cm [facility] Body weight 2022-09-28 18:42:00 70.308 kg [facility] BMI 2022-09-28 18:42:00 31.31 kg/m2 [facility] Systolic blood pressure 2022-08-28 00:40:00 119 mm[Hg] [facility] Diastolic blood pressure 2022-08-28 00:40:00 80 mm[Hg] [facility] Heart rate 2022-08-28 00:40:00 73 /min [facility] Body temperature 2022-08-28 00:40:00 36.72 Tiffanie [facility] Respiratory rate 2022-08-28 00:40:00 16 /min [facility] Body height 2022-08-28 00:40:00 149.9 cm [facility] Body weight 2022-08-28 00:40:00 70.761 kg [facility] BMI 2022-08-28 00:40:00 31.51 kg/m2 [facility] Oxygen saturation in Arterial blood by Pulse oximetry 2022-08-28 00:40:00 100 /min [facility] Systolic blood pressure 2022-04-16 15:02:00 115 mm[Hg] [facility] Diastolic blood pressure 2022-04-16 15:02:00 77 mm[Hg] [facility] Heart rate 2022-04-16 15:02:00 61 /min [facility] Respiratory rate 2022-04-16 15:02:00 18 /min [facility] Body height 2022-04-16 15:02:00 149.9 cm [facility] Body weight 2022-04-16 15:02:00 68.947 kg [facility] BMI 2022-04-16 15:02:00 30.70 kg/m2 [facility] Systolic blood pressure 2022-04-05 19:43:00 115 mm[Hg] [facility] Diastolic blood pressure 2022-04-05 19:43:00 78 mm[Hg] [facility] Heart rate 2022-04-05 19:43:00 68 /min [facility] Body temperature 2022-04-05 19:43:00 36.5 Tiffanie [facility] Respiratory rate 2022-04-05 19:43:00 16 /min [facility] Body height 2022-04-05 19:43:00 152.4 cm [facility] Body weight 2022-04-05 19:43:00 70.308 kg [facility] BMI 2022-04-05 19:43:00 30.27 kg/m2 [facility] Systolic blood pressure 2019-04-02 20:02:00 111 mm[Hg] [facility] Diastolic blood pressure 2019-04-02 20:02:00 72 mm[Hg] [facility] Heart rate 2019-04-02 20:02:00 62 /min [facility] Body temperature 2019-04-02 20:02:00 36.56 Tiffanie [facility] Respiratory rate 2019-04-02 20:02:00 16 /min [facility] Body height 2019-04-02 20:02:00 149.9 cm [facility] Body weight 2019-04-02 20:02:00 70.875 kg [facility] BMI 2019-04-02 20:02:00 31.56 kg/m2 [facility] Systolic blood pressure 2019-03-08 15:30:00 113 mm[Hg] [facility] Diastolic blood pressure 2019-03-08 15:30:00 64 mm[Hg] [facility] Heart rate 2019-03-08 15:30:00 69 /min [facility] Body temperature 2019-03-08 15:30:00 36.78 Tiffanie [facility] Respiratory rate 2019-03-08 15:30:00 18 /min [facility] Body height 2019-03-08 15:30:00 149.9 cm [facility] Body weight 2019-03-08 15:30:00 71.351 kg [facility] BMI 2019-03-08 15:30:00 31.77 kg/m2 [facility] Oxygen saturation in Arterial blood by Pulse oximetry 2019-03-08 15:30:00 97 /min [facility] Systolic blood pressure 2023-01-09 17:00:00 112 mm[Hg] [facility] Diastolic blood pressure 2023-01-09 17:00:00 65 mm[Hg] [facility] Heart rate 2023-01-09 17:00:00 83 /min [facility] Body temperature 2023-01-09 17:00:00 36.44 Tiffanie [facility] Respiratory rate 2023-01-09 17:00:00 18 /min [facility] Oxygen saturation in Arterial blood by Pulse oximetry 2023-01-09 17:00:00 100 /min [facility] Body height 2023-01-07 18:46:00 149.9 cm [facility] Body weight 2023-01-07 18:46:00 71.215 kg [facility] BMI 2023-01-07 18:46:00 31.71 kg/m2 [facility] BP Systolic 2021-08-18 13:57:00 106 mm[Hg] [...] Date / Time Performed Performing Clinician Source POCT SARS-COV-2 ANTIGEN (BINAX NOW) 2024-05-25 00:00:00 Kingsley White [facility] HB CREATININE SERUM/BLOOD FO R IMAGING 2023-12-14 16:09:00 Mike Masters [facility] CT ABDOMEN PELVIS W CONTRAST 2023-12-14 15:26:17 Eli Hyman [facility] AUTHORIZATION TO RELEASE PHI TO [facility] 2023-04-18 05:01:00 Doctor Unassigned, [place] [facility] ASSIGNMENT OF BENEFITS 2023-04-05 19:38:32 Doctor Unassigned, [place] [facility] POCT URINALYSIS W/O SPECIFIC GRAVITY 2023-04-05 00:00:00 Debbie Marks [facility] CT ABDOMEN PELVIS WO CONTRAST 2023-01-17 19:03:23 Lena Cruz [facility] PREALBUMIN, SERUM 2023-01-17 10:54:00 Zachary Contreras [facility] PHOSPHORUS 2023-01-17 10:54:00 Zachary Contreras [facility] TRIGLYCERIDES 2023-01-17 10:54:00 Zachary Contreras Jarrell [facility] GAMMA GLUTAMYLTRANSFERASE 2023-01-17 10:54:00 Zachary Contreras [facility] MAGNESIUM 2023-01-17 10:54:00 Zachary Contreras [facility] IONIZED CALCIUM 2023-01-17 10:54:00 Zachary Contreras [facility] HEPATIC FUNCTION PANEL (30376) (ALB,T.PRO,BILI T,BU/BC,ALT,AST,ALK PHOS) 2023-01-17 10:54:00 Zachary Contreras [facility] BASIC METABOLIC PANEL (NA, K , CL, CO2, GLUCOSE, BUN, CREATININE, CA) 2023-01-17 10:54:00 Zachary Contreras [facility] CBC WITH DIFF 2023-01-17 10:54:00 Zachary Contreras [facility] CBC WITH DIFF 2023-01-16 12:36:00 Fiordaliza Brown [facility] PHOSPHORUS 2023-01-16 11:16:00 Helio Graciela [facility] MAGNESIUM 2023-01-16 11:16:00 Helio Graciela [facility] BASIC METABOLIC PANEL (NA, K , CL, CO2, GLUCOSE, BUN, CREATININE, CA) 2023-01-16 11:16:00 Graciela Cadet [facility] COMP. METABOLIC PANEL ([id number]) 2023-01-15 17:14:00 Helio Graciela [facility] PHOSPHORUS 2023-01-15 16:13:00 Helio Graciela [facility] MAGNESIUM 2023-01-15 16:13:00 Helio Graciela [facility] CBC WITH DIFF 2023-01-15 16:13:00 Graciela Cadet [facility] PHOSPHORUS 2023-01-13 11:52:00 Luke Raman [facility] MAGNESIUM 2023-01-13 11:52:00 Luke Raman Philipp [facility] BASIC METABOLIC PANEL (NA, K , CL, CO2, GLUCOSE, BUN, CREATININE, CA) 2023-01-13 11:52:00 Luke Raman [facility] CBC WITH DIFF 2023-01-13 11:52:00 Luke Raman [facility] PHOSPHORUS 2023-01-12 10:37:00 Luke Raman [facility] MAGNESIUM 2023-01-12 10:37:00 Luke Raman [facility] BASIC METABOLIC PANEL (NA, K , CL, CO2, GLUCOSE, BUN, CREATININE, CA) 2023-01-12 10:37:00 Luke Raman [facility] CBC WITH DIFF 2023-01-12 10:37:00 Luke Raman [facility] BASIC METABOLIC PANEL (NA, K , CL, CO2, GLUCOSE, BUN, CREATININE, CA) 2023-01-11 17:18:00 Luke Raman [facility] PHOSPHORUS 2023-01-11 10:56:00 Luke Raman [facility] MAGNESIUM 2023-01-11 10:56:00 Luke Raman [facility] CBC WITH DIFF 2023-01-11 10:56:00 Luke Raman [facility] XR CHEST 1 VW 2023-01-11 01:00:00 Luke Raman [facility] PREALBUMIN, SERUM 2023-01-10 11:18:00 Luke Raman [facility] PHOSPHORUS 2023-01-10 11:18:00 Luke Raman [facility] TRIGLYCERIDES 2023-01-10 11:18:00 Zachary Contreras [facility] MAGNESIUM 2023-01-10 11:18:00 Luke Raman [facility] IONIZED CALCIUM 2023-01-10 11:18:00 Zachary Contreras [facility] HEPATIC FUNCTION PANEL ([id number]) (ALB,T.PRO,BILI T,BU/BC,ALT,AST,ALK PHOS) 2023-01-10 11:18:00 Zachary Contreras [facility] BASIC METABOLIC PANEL (NA, K , CL, CO2, GLUCOSE, BUN, CREATININE, CA) 2023-01-10 11:18:00 Luke Raman [facility] CBC WITH DIFF 2023-01-10 11:18:00 Luke Raman [facility] PHOSPHORUS 2023-01-09 10:33:00 Luke Raman [facility] MAGNESIUM 2023-01-09 10:33:00 Luke Raman [facility] BASIC METABOLIC PANEL (NA, K , CL, CO2, GLUCOSE, BUN, CREATININE, CA) 2023-01-09 10:33:00 Luke Raman [facility] CBC WITH DIFF 2023-01-09 10:33:00 Luke Raman [facility] PHOSPHORUS 2023-01-09 10:33:00 Luke Raman [facility] MAGNESIUM 2023-01-09 10:33:00 Luke Raman Philipp [facility] BASIC METABOLIC PANEL (NA, K , CL, CO2, GLUCOSE, BUN, CREATININE, CA) 2023-01-09 10:33:00 Luke Raman [facility] CBC WITH DIFF 2023-01-09 10:33:00 Luke Raman Philipp [facility] CBC WITH DIFF 2023-01-08 11:05:00 Graciela Cadet [facility] BASIC METABOLIC PANEL (NA, K , CL, CO2, GLUCOSE, BUN, CREATININE, CA) 2023-01-08 11:05:00 Graciela Cadet Eric [facility] BASIC METABOLIC PANEL (NA, K , CL, CO2, GLUCOSE, BUN, CREATININE, CA) 2023-01-08 11:05:00 Graciela Cadet Eric [facility] CBC WITH DIFF 2023-01-08 11:05:00 Graciela Cadet [facility] IR DRAINAGE BY CATHETER PERITONEAL OR RETROPERITONEAL 2023-01-07 20:49:15 Graciela Cadet [facility] IR DRAINAGE BY CATHETER PERITONEAL OR RETROPERITONEAL 2023-01-07 20:49:15 Graciela Cadet [facility] BODY FLUID CULTURE(AEROBIC/ANAEROBIC) 2023-01-07 20:37:00 Osbaldo Bhatia [facility] BODY FLUID CULTURE(AEROBIC/ANAEROBIC) 2023-01-07 20:37:00 Osbaldo Bhatia [facility] BASIC METABOLIC PANEL (NA, K , CL, CO2, GLUCOSE, BUN, CREATININE, CA) 2023-01-07 10:00:00 [facility] CBC WITH DIFF 2023-01-07 10:00:00 [facility] MAGNESIUM 2023-01-07 10:00:00 [facility] PHOSPHORUS 2023-01-07 10:00:00 [facility] PHOSPHORUS 2023-01-07 10:00:00 [facility] MAGNESIUM 2023-01-07 10:00:00 [facility] BASIC METABOLIC PANEL (NA, K , CL, CO2, GLUCOSE, BUN, CREATININE, CA) 2023-01-07 10:00:00 [facility] CBC WITH DIFF 2023-01-07 10:00:00 [facility] CBC WITH DIFF 2023-01-06 14:15:00 Yuan [facility] CBC WITH DIFF 2023-01-06 14:15:00 Yuan [facility] BASIC METABOLIC PANEL (NA, K , CL, CO2, GLUCOSE, BUN, CREATININE, CA) 2023-01-06 14:14:00 Yuan [facility] BASIC METABOLIC PANEL (NA, K , CL, CO2, GLUCOSE, BUN, CREATININE, CA) 2023-01-06 14:14:00 Yuan [facility] CT ABDOMEN PELVIS W CONTRAST 2023-01-06 09:35:52 Yuan [facility] CT ABDOMEN PELVIS W CONTRAST 2023-01-06 09:35:52 Yuan [facility] URINALYSIS 2023-01-06 06:16:00 Norman You [facility] URINALYSIS 2023-01-06 06:16:00 Norman You [facility] BASIC METABOLIC PANEL (NA, K , CL, CO2, GLUCOSE, BUN, CREATININE, CA) 2023-01-06 05:26:00 Norman You [facility] HEPATIC FUNCTION PANEL ([id number]) (ALB,T.PRO,BILI T,BU/BC,ALT,AST,ALK PHOS) 2023-01-06 05:26:00 Norman You [facility] LIPASE 2023-01-06 05:26:00 Norman You [facility] LACTIC ACID WHOLE BLOOD 2023-01-06 05:26:00 Kenyatta, Norman [facility] CBC WITH DIFF 2023-01-06 05:26:00 Kenyatta Norman Ferris [facility] MAGNESIUM 2023-01-06 05:26:00 Kenyatta Norman Barrington [facility] LIPASE 2023-01-06 05:26:00 Kenyatta Norman [facility] MAGNESIUM 2023-01-06 05:26:00 Kenyatta Norman [facility] HEPATIC FUNCTION PANEL ([id number]) (ALB,T.PRO,BILI T,BU/BC,ALT,AST,ALK PHOS) 2023-01-06 05:26:00 Kenyatta Norman [facility] BASIC METABOLIC PANEL (NA, K , CL, CO2, GLUCOSE, BUN, CREATININE, CA) 2023-01-06 05:26:00 Kenyatta Norman [facility] CBC WITH DIFF 2023-01-06 05:26:00 Kenyatta Norman [facility] LACTIC ACID WHOLE BLOOD 2023-01-06 05:26:00 Kenyatta [facility] CONSENT/REFUSAL FOR DIAGNOSI S AND TREATMENT 2023-01-06 04:28:14 Doctor Unassigned, [place] [facility] CONSENT/REFUSAL FOR DIAGNOSI S AND TREATMENT 2023-01-06 04:28:14 Doctor Unassigned, [place] [facility] CBC WITH DIFF 2023-01-04 12:01:00 Fan [facility] CBC WITH DIFF 2023-01-04 12:01:00 Fan [facility] MAGNESIUM 2023-01-03 11:49:00 Eliu Baird [facility] BASIC METABOLIC PANEL (NA, K , CL, CO2, GLUCOSE, BUN, CREATININE, CA) 2023-01-03 11:49:00 Eliu Baird Camilo [facility] CBC WITH DIFF 2023-01-03 11:49:00 [facility] WITH DIFF 2023-01-03 11:49:00 Eliu Baird Camilo [facility] BASIC METABOLIC PANEL (NA, K , CL, CO2, GLUCOSE, BUN, CREATININE, CA) 2023-01-03 11:49:00 Eliu Baird [facility] MAGNESIUM 2023-01-03 11:49:00 Eliu Baird [facility] CT ABDOMEN PELVIS W CONTRAST 2023-01-02 23:44:44 Mike Peña [facility] CT ABDOMEN PELVIS W CONTRAST 2023-01-02 23:44:44 Mike Peña [facility] BASIC METABOLIC PANEL (NA, K , CL, CO2, GLUCOSE, BUN, CREATININE, CA) 2023-01-02 15:10:00 Fan Kilgore [facility] CBC WITH DIFF 2023-01-02 15:10:00 Jame [facility] CBC WITH DIFF 2023-01-02 15:10:00 Jame [facility] BASIC METABOLIC PANEL (NA, K , CL, CO2, GLUCOSE, BUN, CREATININE, CA) 2023-01-02 15:10:00 Fan Kilgore [facility] PHOSPHORUS 2023-01-01 12:23:00 Holly Metz [facility] MAGNESIUM 2023-01-01 12:23:00 Holly Metz [facility] BASIC METABOLIC PANEL (NA, K , CL, CO2, GLUCOSE, BUN, CREATININE, CA) 2023-01-01 12:23:00 Holly Metz [facility] CBC WITH DIFF 2023-01-01 12:23:00 Holly Metz [facility] CBC WITH DIFF 2023-01-01 12:23:00 Holly Metz [facility] BASIC METABOLIC PANEL (NA, K , CL, CO2, GLUCOSE, BUN, CREATININE, CA) 2023-01-01 12:23:00 Holly Metz [facility] MAGNESIUM 2023-01-01 12:23:00 Holly Metz [facility] PHOSPHORUS 2023-01-01 12:23:00 Holly Metz [facility] BASIC METABOLIC PANEL (NA, K , CL, CO2, GLUCOSE, BUN, CREATININE, CA) 2022-12-31 12:27:00 Holly Metz [facility] VANCOMYCIN TROUGH 2022-12-31 12:27:00 Dana Collier [facility] CBC WITH DIFF 2022-12-31 12:27:00 Holly Metz [facility] EXTRA TUBE LAV 2022-12-31 12:27:00 Mike Masters [facility] EXTRA TUBE LT. GREEN 2022-12-31 12:27:00 Mike Masters [facility] VANCOMYCIN TROUGH 2022-12-31 12:27:00 Dana Collier [facility] BASIC METABOLIC PANEL (NA, K , CL, CO2, GLUCOSE, BUN, CREATININE, CA) 2022-12-31 12:27:00 Holly Metz [facility] CBC WITH DIFF 2022-12-31 12:27:00 Holly Metz [facility] EXTRA TUBE LT. GREEN 2022-12-31 12:27:00 Mike Masters [facility] EXTRA TUBE LAV 2022-12-31 12:27:00 Mike Masters [facility] PHOSPHORUS 2022-12-30 11:03:00 Chuy [facility] MAGNESIUM 2022-12-30 11:03:00 Chuy [facility] BASIC METABOLIC PANEL (NA, K , CL, CO2, GLUCOSE, BUN, CREATININE, CA) 2022-12-30 11:03:00 Chuy [facility] CBC WITH DIFF 2022-12-30 11:03:00 Den [facility] CBC WITH DIFF 2022-12-30 11:03:00 Chuy [facility] BASIC METABOLIC PANEL (NA, K , CL, CO2, GLUCOSE, BUN, CREATININE, CA) 2022-12-30 11:03[facility] 11:03:00 Den [facility] PHOSPHORUS 2022-12-30 11:03:00 Den, [facility] PHOSPHORUS 2022-12-29 12:00:00 Den [facility] MAGNESIUM 2022-12-29 12:00:00 Den [facility] BASIC METABOLIC PANEL (NA, K , CL, CO2, GLUCOSE, BUN, CREATININE, CA) 2022-12-29 12:00:00 Chuy [facility] CBC WITH DIFF 2022-12-29 12:00:00 Den, [facility] CBC WITH DIFF 2022-12-29 12:00:00 Chuy [facility] BASIC METABOLIC PANEL (NA, K , CL, CO2, GLUCOSE, BUN, CREATININE, CA) 2022-12-29 12:00:00 Chuy [facility] MAGNESIUM 2022-12-29 12:00:00 Chuy [facility] PHOSPHORUS 2022-12-29 12:00:00 Chuy [facility] VANCOMYCIN TROUGH 2022-12-28 11:45:[address] [facility] VANCOMYCIN TROUGH 2022-12-28 11:45:[address] [facility] PHOSPHORUS 2022-12-28 10:18:00 Chuy [facility] TRIGLYCERIDES 2022-12-28 10:18:00 Graciela Cadet [facility] MAGNESIUM 2022-12-28 10:18:00 Chuy [facility] IONIZED CALCIUM 2022-12-28 10:18:00 Graciela Cadet [facility] BASIC METABOLIC PANEL (NA, K , CL, CO2, GLUCOSE, BUN, CREATININE, CA) 2022-12-28 10:18:00 Chuy [facility] CBC WITH DIFF 2022-12-28 10:18:00 Chuy [facility] IONIZED CALCIUM 2022-12-28 10:18:00 Graciela Cadet [facility] TRIGLYCERIDES 2022-12-28 10:18:00 Graciela Cadet [facility] CBC WITH DIFF 2022-12-28 10:18:00 Chuy [facility] BASIC METABOLIC PANEL (NA, K , CL, CO2, GLUCOSE, BUN, CREATININE, CA) 2022-12-28 10:18:00 Chuy [facility] MAGNESIUM 2022-12-28 10:18:00 Chuy [facility] PHOSPHORUS 2022-12-28 10:18:00 [facility] 2022-12-27 16:03:01 Santino [facility] PREPARE PACKED RBC 2022-12-27 16:03:01 Santino [facility] IR DRAINAGE BY CATHETER PERITONEAL OR RETROPERITONEAL 2022-12-27 15:57:49 Pedrito [facility] POCT GLUCOSE (AUTOMATED) 2022-12-27 13:18:00 Pedrito [facility] POCT GLUCOSE (AUTOMATED) 2022-12-27 13:18:00 Pedrito [facility] PHOSPHORUS 2022-12-27 11:15:00 [facility]-12-27 11:15:00 Chuy [facility] HEPATIC FUNCTION PANEL ([id number]) (ALB,T.PRO,BILI T,BU/BC,ALT,AST,ALK PHOS) 2022-12-27 11:15:00 Pedrito [facility] BASIC METABOLIC PANEL (NA, K , CL, CO2, GLUCOSE, BUN, CREATININE, CA) 2022-12-27 11:15:00 [facility] 2022-12-27 11:15:00 Pedrito [facility] CBC WITH DIFF 2022-12-27 11:15:00 Chuy [facility] CBC WITH DIFF 2022-12-27 11:15:00 [facility] (NA, K , CL, CO2, GLUCOSE, BUN, CREATININE, CA) 2022-12-27 11:15:00 [facility] 2022-12-27 11:15:00 [facility] 2022-12-27 11:15:00 Chuy [facility] VANCOMYCIN TROUGH 2022-12-27 11:15:00 Pedrito [facility] HEPATIC FUNCTION PANEL ([id number]) (ALB,T.PRO,BILI T,BU/BC,ALT,AST,ALK PHOS) 2022-12-27 11:15[facility]00 [facility] 2022-12-26 23:19:00 Pedrito [facility] POCT GLUCOSE (AUTOMATED) 2022-12-26 23:19:00 Pedrito [facility] PROTHROMBIN TIME / INR 2022-12-26 21:07:[address] [facility] PROTHROMBIN TIME / INR 2022-12-26 21:07:[address] [facility] CBC WITH DIFF 2022-12-26 20:59:00 Pedrito [facility] HB ABO GROUPING 2022-12-26 20:59:00 Pedrito [facility] ASPIRATE OR ABSCESS CULTURE(AEROBIC/ANAEROBIC) 2022-12-26 20:59:[address] [facility] WOUND/ASPIRATE OR ABSCESS CULTURE 2022-12-26 20:59:[address] [facility] HB ABO GROUPING 2022-12-26 20:59:00 Pedrito [facility] CBC WITH DIFF 2022-12-26 20:59:00 Pedrito [facility] WOUND/ASPIRATE OR ABSCESS CULTURE 2022-12-26 20:59:[address] [facility] ASPIRATE OR ABSCESS CULTURE(AEROBIC/ANAEROBIC) 2022-12-26 20:59:[address] [facility] US ABDOMEN LIMITED 2022-12-26 20:40:[address] [facility] US ABDOMEN LIMITED 2022-12-26 20:40:[address] [facility] CBC WITH DIFF 2022-12-26 16:14:00 [facility] 2022-12-26 16:14:00 Georgiana Vera [facility] POCT GLUCOSE (AUTOMATED) 2022-12-26 16:12:00 [facility]) 2022-12-26 16:12:00 Pedrito [facility] CT ABDOMEN PELVIS W CONTRAST 2022-12-26 15:46:[address] [facility]EL[facility] W CONTRAST 2022-12-26 15:46:15 [facility] 2022-12-26 10:40:00 Georgiana Vera [facility] MAGNESIUM 2022-12-26 10:40:00 [facility] HEPATIC FUNCTION PANEL ([id number]) (ALB,T.PRO,BILI T,BU/BC,ALT,AST,ALK PHOS) 2022-12-26 10:40:00 [facility]OLIC PANEL (NA, K , CL, CO2, GLUCOSE, BUN, CREATININE, CA) 2022-12-26 10:40:00 Georgiana Vera [facility] HEPATIC FUNCTION PANEL ([id number]) (ALB,T.PRO,BILI T,BU/BC,ALT,AST,ALK PHOS) 2022-12-26 10:40:00 [facility]EL (NA, K , CL, CO2, GLUCOSE, BUN, CREATININE, CA) 2022-12-26 10:40:00 Georgiana Vera [facility] MAGNESIUM 2022-12-26 10:40:00 Bambi Veranifer [facility] PHOSPHORUS 2022-12-26 10:40:00 [facility], MEDICAL AND SURGICAL PROCEDURES 2022-12-26 06:01:00 Doctor Unassigned, [place] [facility] DISCLOSURE AND CONSENT, MEDICAL AND SURGICAL PROCEDURES 2022-12-26 06:01:00 Doctor Unassigned, [facility] POCT GLUCOSE (AUTOMATED) 2022-12-26 01:48:00 [facility]) 2022-12-26 01:48:00 [facility] 2022-12-26 01:17:00 [facility] 2022-12-26 01:17:00 Pedrito [facility] BODY FLUID DIRECT COUNT 2022-12-25 21:44:00 [facility] ASPIRATE OR ABSCESS CULTURE(AEROBIC/ANAEROBIC) 2022-12-25 21:44:00 Pedrito [facility] BODY FLUID MANUAL DIFF 2022-12-25 21:44:00 [facility] ASPIRATE OR ABSCESS CULTURE(AEROBIC/ANAEROBIC) 2022-12-25 21:44:[address] [facility] [address] [facility] PELVIS W CONTRAST 2022-12-25 18:14:58 Chuy [facility] CT ABDOMEN PELVIS W CONTRAST 2022-12-25 18:14:58 Chuy [facility] PHOSPHORUS 2022-12-25 15:46:00 Chuy [facility] MAGNESIUM 2022-12-25 15:46:00 Chuy [facility] BASIC METABOLIC PANEL (NA, K , CL, CO2, GLUCOSE, BUN, CREATININE, CA) 2022-12-25 15:46:00 Chuy [facility] CBC WITH DIFF 2022-12-25 15:46:00 Chuy [facility] PHOSPHORUS 2022-12-25 15:46:00 Chuy [facility] MAGNESIUM 2022-12-25 15:46:00 Chuy [facility] BASIC METABOLIC PANEL (NA, K , CL, CO2, GLUCOSE, BUN, CREATININE, CA) 2022-12-25 15:46:00 Chuy [facility] CBC WITH DIFF 2022-12-25 15:46:00 Chuy [facility] POCT GLUCOSE (AUTOMATED) 2022-12-25 14:00:00 Pedrito [facility] POCT GLUCOSE (AUTOMATED) 2022-12-25 14:00:00 Pedrito [facility] POCT GLUCOSE (AUTOMATED) 2022-12-25 06:08:00 Pedrito [facility] POCT GLUCOSE (AUTOMATED) 2022-12-25 06:08:00 Pedrito [facility] BLOOD CULTURE SCREEN 2022-12-24 20:44:00 [facility]12-24 20:44:00 [facility] 2022-12-24 20:43:00 Pedrito [facility] BLOOD CULTURE SCREEN 2022-12-24 20:43:00 [facility] (AUTOMATED) 2022-12-24 18:15:00 Pedrito [facility] POCT GLUCOSE (AUTOMATED) 2022-12-24 18:15:00 Pedrito [facility] PHOSPHORUS 2022-12-24 11:52:00 Pedrito [facility] MAGNESIUM 2022-12-24 11:52:00 Pedrito [facility] IONIZED CALCIUM 2022-12-24 11:52:00 Pedrito [facility] COMP. METABOLIC PANEL ([id number]) 2022-12-24 11:52:00 Pedrito [facility] CBC WITH DIFF 2022-12-24 11:52:00 Pedrito [facility] CBC WITH DIFF 2022-12-24 11:52:00 Pedrito [facility] COMP. METABOLIC PANEL ([id number]) 2022-12-24 11:52:00 [facility] 2022-12-24 11:52:00 [facility] 2022-12-24 11:52:00 Pedrito [facility] IONIZED CALCIUM 2022-12-24 11:52:00 Pedrito [facility] EMAIL COMMUNICATION BETWEEN PATIENT & PROVIDER 2022-12-24 06:01:00 Doctor Unassigned, [facility] EMAIL COMMUNICATION BETWEEN PATIENT & PROVIDER 2022-12-24 06:01:00 Doctor Unassigned, [facility] POCT GLUCOSE (AUTOMATED) 2022-12-23 22:32:00 [facility] 2022-12-23 22:32:00 [facility] 2022-12-23 11:29:00 Pedrito [facility] MAGNESIUM 2022-12-23 11:29:00 Pedrito [facility] BASIC METABOLIC PANEL (NA, K , CL, CO2, GLUCOSE, BUN, CREATININE, CA) 2022-12-23 11:29:00 Pedrito [facility] CBC WITH DIFF 2022-12-23 11:29:00 Pedrito [facility] BASIC METABOLIC PANEL (NA, K , CL, CO2, GLUCOSE, BUN, CREATININE, CA) 2022-12-23 11:29:00 Pedrito [facility] MAGNESIUM 2022-12-23 11:29:00 Pedrito [facility] PHOSPHORUS 2022-12-23 11:29:00 Pedrito [facility] CBC WITH DIFF 2022-12-23 11:29:00 Pedrito [facility] POCT GLUCOSE (AUTOMATED) 2022-12-23 07:08:00 Pedrito [facility] POCT GLUCOSE (AUTOMATED) 2022-12-23 07:08:00 Pedrito [facility] CT ABDOMEN PELVIS W CONTRAST 2022-12-22 19:19:57 Magi [facility] CT ABDOMEN PELVIS W CONTRAST 2022-12-22 19:19:57 Magi [facility] XR CHEST 1 VW 2022-12-22 17:45:41 Eli Hyman Alicia [facility] XR KUB 2022-12-22 17:45:41 Magi [facility] XR KUB 2022-12-22 17:45:41 Magi [facility] XR CHEST 1 VW 2022-12-22 17:45:41 Eli Hyman Alicia [facility] POCT GLUCOSE (AUTOMATED) 2022-12-22 13:52:00 Pedrito [facility] POCT GLUCOSE (AUTOMATED) 2022-12-22 13:52:00 Pedrito [facility] PHOSPHORUS 2022-12-22 10:26:00 Eli Hyman [facility] MAGNESIUM 2022-12-22 10:26:00 Demetrio Alvarado [facility] BASIC METABOLIC PANEL (NA, K , CL, CO2, GLUCOSE, BUN, CREATININE, CA) 2022-12-22 10:26:00 Christiano [facility] CBC WITH DIFF 2022-12-22 10:26:00 Christiano [facility] BASIC METABOLIC PANEL (NA, K , CL, CO2, GLUCOSE, BUN, CREATININE, CA) 2022-12-22 10:26:00 Christiano [facility] CBC WITH DIFF 2022-12-22 10:26:00 Christiano [facility] MAGNESIUM 2022-12-22 10:26:00 Christiano [facility] PHOSPHORUS 2022-12-22 10:26:00 Eli Hyman [facility] POCT GLUCOSE (AUTOMATED) 2022-12-22 02:31:00 [facility] 2022-12-22 02:31:00 [facility] VW 2022-12-22 01:57:18 Christiano [facility] XR CHEST 1 VW 2022-12-22 01:57:18 Christiano [facility] BLOOD CULTURE SCREEN 2022-12-21 19:03:00 Christiano [facility] BLOOD CULTURE SCREEN 2022-12-21 19:03:00 Christiano [facility] BLOOD CULTURE SCREEN 2022-12-21 18:59:00 Christiano [facility] IRON 2022-12-21 18:59:00 Christiano [facility] TOTAL IRON BINDING CAPACITY 2022-12-21 18:59:00 Christiano [facility] RETICULOCYTES AUTOMATED 2022-12-21 18:59:00 Christiano [facility] BLOOD CULTURE SCREEN 2022-12-21 18:59:00 Christiano [facility] TOTAL IRON BINDING CAPACITY 2022-12-21 18:59:00 Christiano [facility] RETICULOCYTES AUTOMATED 2022-12-21 18:59:00 Christiano, Demetrio [facility] IRON 2022-12-21 18:59:00 Demetrio Alvarado [facility] PREPARE PACKED RBC 2022-12-21 18:23:21 Eli Hyman [facility] PREPARE PACKED RBC 2022-12-21 18:23:21 Boogie [facility] POCT GLUCOSE (AUTOMATED) 2022-12-21 13:41:00 [facility]OMATED) 2022-12-21 13:41:00 Toya Major [facility] HB ABO GROUPING 2022-12-21 13:40:00 Boogie [facility] HB ABO GROUPING 2022-12-21 13:40:00 Bo[facility] XR CHEST 1 VW 2022-12-21 11:33:57 Bo[facility] XR CHEST 1 VW 2022-12-21 11:33:57 Bo[facility]ie [facility] PHOSPHORUS 2022-12-21 10:06:00 Bo[facility]ie [facility] MAGNESIUM 2022-12-21 10:06:00 Bo[facility] BASIC METABOLIC PANEL (NA, K , CL, CO2, GLUCOSE, BUN, CREATININE, CA) 2022-12-21 10:06:00 [facility] CBC WITHOUT DIFF 2022-12-21 10:06:00 [facility] BASIC METABOLIC PANEL (NA, K , CL, CO2, GLUCOSE, BUN, CREATININE, CA) 2022-12-21 10:06:00 [facility] CBC WITHOUT DIFF 2022-12-21 10:06:00 Bo[facility] MAGNESIUM 2022-12-21 10:06:00 Bo[facility]ie [facility] PHOSPHORUS 2022-12-21 10:06:00 Bo[facility] POCT GLUCOSE (AUTOMATED) 2022-12-21 02:07:00 [facility]) 2022-12-21 02:07:00 [facility] 2022-12-20 20:24:00 Pedrito [facility] BASIC METABOLIC PANEL (NA, K , CL, CO2, GLUCOSE, BUN, CREATININE, CA) 2022-12-20 20:24:00 Pedrito [facility] BASIC METABOLIC PANEL (NA, K , CL, CO2, GLUCOSE, BUN, CREATININE, CA) 2022-12-20 20:24:00 Pedrito [facility] MAGNESIUM 2022-12-20 20:24:00 Pedrito [facility] XR ABDOMEN 1 2022-12-20 18:03:45 Pedrito [facility] XR ABDOMEN 1 2022-12-20 18:03:45 Pedrito [facility] XR CHEST 1 2022-12-20 18:03:26 Pedrito [facility] XR CHEST 1 2022-12-20 18:03:26 Pedrito [facility] POCT GLUCOSE (AUTOMATED) 2022-12-20 14:05:00 Pedrito [facility] POCT GLUCOSE (AUTOMATED) 2022-12-20 14:05:00 Pedrito [facility] POCT GLUCOSE (AUTOMATED) 2022-12-20 14:05:00 Pedrito [facility] XR CHEST 1 2022-12-20 11:52:32 Christiano [facility] XR CHEST 1 2022-12-20 11:52:32 Demetrio Alvarado [facility] XR CHEST 1 VW 2022-12-20 11:52:32 Demetrio Alvarado [facility] PHOSPHORUS 2022-12-20 10:06:00 Eli Hyman [facility] MAGNESIUM 2022-12-20 10:06:00 Demetrio Alvarado [facility] BASIC METABOLIC PANEL (NA, K , CL, CO2, GLUCOSE, BUN, CREATININE, CA) 2022-12-20 10:06:00 Demetrio Alvarado [facility] CBC WITH DIFF 2022-12-20 10:06:00 Demetrio Alvarado [facility] PHOSPHORUS 2022-12-20 10:06:00 Eli Hyman Alicia [facility] MAGNESIUM 2022-12-20 10:06:00 Demetrio Alvarado [facility] BASIC METABOLIC PANEL (NA, K , CL, CO2, GLUCOSE, BUN, CREATININE, CA) 2022-12-20 10:06:00 Demetrio Alvarado [facility] CBC WITH DIFF 2022-12-20 10:06:00 Christiano [facility] BASIC METABOLIC PANEL (NA, K , CL, CO2, GLUCOSE, BUN, CREATININE, CA) 2022-12-20 10:06:00 Christiano [facility] CBC WITH DIFF 2022-12-20 10:06:00 Christiano [facility] MAGNESIUM 2022-12-20 10:06:00 Christiano [facility] PHOSPHORUS 2022-12-20 10:06:00 Bo[facility] ACUTE CARE ARTERIAL BLOOD GAS 2022-12-20 10:00:00 Christiano [facility] ACUTE CARE ARTERIAL BLOOD GAS 2022-12-20 10:00:00 Christiano [facility] ACUTE CARE ARTERIAL BLOOD GAS 2022-12-20 10:00:00 Christiano [facility] XR CHEST 1 VW 2022-12-19 12:29:56 Bo[facility]ie [facility] XR CHEST 1 2022-12-19 12:29:56 [facility] 2022-12-19 12:29:56 Eli Hyman [facility] PHOSPHORUS 2022-12-19 10:26:00 [facility] 2022-12-19 10:26:00 [facility] BASIC METABOLIC PANEL (NA, K , CL, CO2, GLUCOSE, BUN, CREATININE, CA) 2022-12-19 10:26:00 Boogie [facility] CBC WITHOUT DIFF 2022-12-19 10:26:00 Bo[facility]ie [facility] AC PANEL 20 + LACTIC ACID 2022-12-19 10:26:00 [facility] PHOSPHORUS 2022-12-19 10:26:00 [facility] MAGNESIUM 2022-12-19 10:26:00 [facility] BASIC METABOLIC PANEL (NA, K , CL, CO2, GLUCOSE, BUN, CREATININE, CA) 2022-12-19 10:26:00 [facility] CBC WITHOUT DIFF 2022-12-19 10:26:00 [facility] AC PANEL 20 + LACTIC ACID 2022-12-19 10:26:00 [facility] BASIC METABOLIC PANEL (NA, K , CL, CO2, GLUCOSE, BUN, CREATININE, CA) 2022-12-19 10:26:00 [facility] CBC WITHOUT DIFF 2022-12-19 10:26:00 [facility] MAGNESIUM 2022-12-19 10:26:00 [facility] PHOSPHORUS 2022-12-19 10:26:00 [facility] AC PANEL 20 + LACTIC ACID 2022-12-19 10:26:00 [facility] LACTIC ACID WHOLE BLOOD 2022-12-19 05:28:00 Carlos Alberto [facility] LACTIC ACID WHOLE BLOOD 2022-12-19 05:28:00 Carlos Alberto [facility] LACTIC ACID WHOLE BLOOD 2022-12-19 05:28:00 Carlos Alberto [facility] PHOSPHORUS 2022-12-19 03:01:00 Boogie [facility] MAGNESIUM 2022-12-19 03:01:00 Toya Major [facility] COMP. METABOLIC PANEL ([id number]) 2022-12-19 03:01:00 Martha Nice [facility] CBC WITH DIFF 2022-12-19 03:01:00 Martha Nice [facility] AC PANEL 20 + LACTIC ACID 2022-12-19 03:01:00 Toya Major [facility] PHOSPHORUS 2022-12-19 03:01:00 Eli Hyman [facility] MAGNESIUM 2022-12-19 03:01:00 [facility]. METABOLIC PANEL ([id number]) 2022-12-19 03:01:00 Martha Nice [facility] CBC WITH DIFF 2022-12-19 03:01:00 Martha Nice [facility] AC PANEL 20 + LACTIC ACID 2022-12-19 03:01:00 [facility] 2022-12-19 03:01:00 Boogie Eli Alicia [facility] COMP. METABOLIC PANEL ([id number]) 2022-12-19 03:01:00 Martha Nice [facility] CBC WITH DIFF 2022-12-19 03:01:00 Martha Nice [facility] AC PANEL 20 + LACTIC ACID 2022-12-19 03:01:00 [facility] 2022-12-19 03:01:00 [facility] + LACTIC ACID 2022-12-19 00:27:00 Eli Hyman [facility] AC PANEL 20 + LACTIC ACID 2022-12-19 00:27:00 Boogie [facility] AC PANEL 20 + LACTIC ACID 2022-12-19 00:27:00 Eli Hyman [facility] XR CHEST 1 VW 2022-12-19 00:23:00 Boogie [facility] XR CHEST 1 VW 2022-12-19 00:23:00 Boogie [facility] XR CHEST 1 VW 2022-12-19 00:23:00 Eli Hyman [facility] SURGICAL PATHOLOGY EXAM 2022-12-18 22:26:00 Sow, [facility] SURGICAL PATHOLOGY EXAM 2022-12-18 22:26:00 Sow, [facility] BODY FLUID CULTURE(AEROBIC/ANAEROBIC) 2022-12-18 22:22:00 Sow, [facility] BODY FLUID CULTURE(AEROBIC/ANAEROBIC) 2022-12-18 22:22:00 Sow, [facility] BODY FLUID CULTURE(AEROBIC/ANAEROBIC) 2022-12-18 22:22:00 Sow, [facility] ARTERIAL LINE 2022-12-18 21:13[facility]22-12-18 20:55:00 Pedrito [facility] URINE CULTURE 2022-12-18 20:55:00 Pedrito [facility] URINE CULTURE 2022-12-18 20:55:00 Pedrito [facility] INTUBATION 2022-12-18 20:53:00 [facility] 2022-12-18 20:28:00 Sow, [facility] EXPLORATORY LAPAROTOMY 2022-12-18 20:28:00 Sow, [facility] CENTRAL VENOUS ACCESS CATHETER PLACEMENT 2022-12-18 20:28:00 Sow, [facility] RESECTION SMALL INTESTINE 2022-12-18 20:28:00 Sow, [facility] DIAGNOSTIC LAPAROSCOPY 2022-12-18 20:28:00 Sow, [facility] EXPLORATORY LAPAROTOMY 2022-12-18 20:28:00 Sow, [facility] CENTRAL VENOUS ACCESS CATHETER PLACEMENT 2022-12-18 20:28:00 Sow, [facility] RESECTION SMALL INTESTINE 2022-12-18 20:28:00 Sow, [facility] DIAGNOSTIC LAPAROSCOPY 2022-12-18 20:28:00 Sow, [facility] EXPLORATORY LAPAROTOMY 2022-12-18 20:28:00 Sow, [facility] CENTRAL VENOUS ACCESS CATHETER PLACEMENT 2022-12-18 20:28:00 Sow, [facility] RESECTION SMALL INTESTINE 2022-12-18 20:28:00 Sow, [facility] BLOOD CULTURE SCREEN 2022-12-18 19:46:00 Ovselena [facility] BLOOD CULTURE WORKUP 2022-12-18 19:46:00 Oville, [facility] BLOOD CULTURE SCREEN 2022-12-18 19:46:00 Oville [facility] BLOOD CULTURE WORKUP 2022-12-18 19:46:00 O[place], [facility] BLOOD CULTURE SCREEN 2022-12-18 19:46:00 O[place], [facility] BLOOD CULTURE WORKUP 2022-12-18 19:46:00 [place], [facility] BLOOD CULTURE SCREEN 2022-12-18 19:30:00 Oville [facility] BLOOD CULTURE WORKUP 2022-12-18 19:30:00 Oville [facility] GRAM NEGATIVE BLOOD PATHOGEN S DNA PROBE-ANAEROBIC 2022-12-18 19:30:00 Oville [facility] BLOOD CULTURE SCREEN 2022-12-18 19:30:00 Oville, [facility] BLOOD CULTURE WORKUP 2022-12-18 19:30:00 [place], [facility] GRAM NEGATIVE BLOOD PATHOGEN S DNA PROBE-ANAEROBIC 2022-12-18 19:30:00 [place] [facility] BLOOD CULTURE SCREEN 2022-12-18 19:30:00 [place] [facility] BLOOD CULTURE WORKUP 2022-12-18 19:30:00 [place], [facility] GRAM NEGATIVE BLOOD PATHOGEN S DNA PROBE-ANAEROBIC 2022-12-18 19:30:00 [place] [facility] BASIC METABOLIC PANEL (NA, K , CL, CO2, GLUCOSE, BUN, CREATININE, CA) 2022-12-18 19:01:00 [facility] BASIC METABOLIC PANEL (NA, K , CL, CO2, GLUCOSE, BUN, CREATININE, CA) 2022-12-18 19:01:00 [place] Nice [facility] TSH RECEPTOR ANTIBODY (TRAB) 2022-12-18 19:01:00 Martha Nice [facility] TSH RECEPTOR ANTIBODY (TRAB) 2022-12-18 19:01:00 Martha Nice [facility] BASIC METABOLIC PANEL (NA, K , CL, CO2, GLUCOSE, BUN, CREATININE, CA) 2022-12-18 19:01:00 Martha Nice [facility] LACTIC ACID WHOLE BLOOD 2022-12-18 18:57:00 Magi [facility] LACTIC ACID WHOLE BLOOD 2022-12-18 18:57:00 Magi [facility] LACTIC ACID WHOLE BLOOD 2022-12-18 18:57:00 Magi [facility] URINALYSIS 2022-12-18 18:26:00 Pedrito [facility] CREATININE, URINE RANDOM 2022-12-18 18:26:00 Pedrito [facility] SODIUM, URINE RANDOM 2022-12-18 18:26:00 Pedrito [facility] URINALYSIS 2022-12-18 18:26:00 Pedrito [facility] CREATININE, URINE RANDOM 2022-12-18 18:26:00 Pedrito [facility] SODIUM, URINE RANDOM 2022-12-18 18:26:00 Pedrito [facility] SODIUM, URINE RANDOM 2022-12-18 18:26:00 Pedrito [facility] CREATININE, URINE RANDOM 2022-12-18 18:26:00 Pedrito [facility] URINALYSIS 2022-12-18 18:26:00 Pedrito [facility] CT ABDOMEN PELVIS W CONTRAST 2022-12-18 18:14:10 Magi [facility] CT ABDOMEN PELVIS W CONTRAST 2022-12-18 18:14:10 Magi [facility] CT ABDOMEN PELVIS W CONTRAST 2022-12-18 18:14:10 Magi [facility] CT ABDOMEN PELVIS WO CONTRAST 2022-12-18 16:35:16 Pedrito [facility] CT ABDOMEN PELVIS WO CONTRAST 2022-12-18 16:35:16 Pedrito [facility] CT ABDOMEN PELVIS WO CONTRAST 2022-12-18 16:35:16 Pedrito [facility] XR CHEST 1 VW 2022-12-18 16:29:38 Pedrito [facility] XR CHEST 1 2022-12-18 16:29:38 Pedrito [facility] XR CHEST 1 2022-12-18 16:29:38 Pedrito [facility] HB ECG ROUTINE & RHYTHM STRIP 2022-12-18 14:12:15 Sid [facility] HB ECG ROUTINE & RHYTHM STRIP 2022-12-18 14:12:15 Sid [facility] HB ECG ROUTINE & RHYTHM STRIP 2022-12-18 14:12:15 Sid [facility] BASIC METABOLIC PANEL (NA, K , CL, CO2, GLUCOSE, BUN, CREATININE, CA) 2022-12-18 10:23:00 Sid [facility] CBC WITH DIFF 2022-12-18 10:23:00 Sid [facility] BASIC METABOLIC PANEL (NA, K , CL, CO2, GLUCOSE, BUN, CREATININE, CA) 2022-12-18 10:23:00 Sid [facility] CBC WITH DIFF 2022-12-18 10:23:00 Sid [facility] BASIC METABOLIC PANEL (NA, K , CL, CO2, GLUCOSE, BUN, CREATININE, CA) 2022-12-18 10:23:00 Sid [facility] CBC WITH DIFF 2022-12-18 10:23:00 Sid [facility] XR ABDOMEN 1 VW 2022-12-18 03:51:00 Sid [facility] XR ABDOMEN 1 2022-12-18 03:51:00 Sid [facility] XR ABDOMEN 1 VW 2022-12-18 03:51:00 Sid [facility] BASIC METABOLIC PANEL (NA, K , CL, CO2, GLUCOSE, BUN, CREATININE, CA) 2022-12-17 22:56:00 Sid [facility] BASIC METABOLIC PANEL (NA, K , CL, CO2, GLUCOSE, BUN, CREATININE, CA) 2022-12-17 22:56:00 Sid [facility] BASIC METABOLIC PANEL (NA, K , CL, CO2, GLUCOSE, BUN, CREATININE, CA) 2022-12-17 22:56:00 Sid [facility] CBC WITH DIFF 2022-12-17 18:23:00 Sid [facility] CBC WITH DIFF 2022-12-17 18:23:00 Sid [facility] CBC WITH DIFF 2022-12-17 18:23:00 Sid [facility] CBC WITH DIFF 2022-12-17 18:23:00 Sid [facility] CBC WITH DIFF 2022-12-17 05:19:00 Sid [facility] CBC WITH DIFF 2022-12-17 05:19:00 Sid [facility] CBC WITH DIFF 2022-12-17 05:19:00 Sid [facility] CBC WITH DIFF 2022-12-17 05:19:00 Sid [facility] SURGICAL PATHOLOGY EXAM 2022-12-16 15:10:00 Sid [facility] SURGICAL PATHOLOGY EXAM 2022-12-16 15:10:00 Sid [facility] INTUBATION 2022-12-16 13:46:00 Marcia Macdonald [facility] LAPAROSCOPIC ASSISTED VAGINA L HYSTERECTOMY 2022-12-16 13:15:00 Sid [facility] LAPAROSCOPIC SALPINGECTOMY 2022-12-16 13:15[facility]00 [facility]ED[facility] 2022-12-16 13:15:00 Lj Villarreal [facility] CYSTOURETHROSCOPY 2022-12-16 13:15:00 [facility] UNDER ANESTHESIA 2022-12-16 13:15:00 [facility] LAPAROSCOPIC ASSISTED VAGINA L HYSTERECTOMY 2022-12-16 13:15:00 Sid [facility] LAPAROSCOPIC SALPINGECTOMY 2022-12-16 13:15:00 Sid [facility] TENSION FREE VAGINAL TAPE PROCEDURE 2022-12-16 13:15:00 [facility] CYSTOURETHROSCOPY 2022-12-16 13:15:00 [facility] EXAM UNDER ANESTHESIA 2022-12-16 13:15:00 Lj Villarreal [facility] LAPAROSCOPIC ASSISTED VAGINA L HYSTERECTOMY 2022-12-16 13:15:00 [facility] SALPINGECTOMY 2022-12-16 13:15:00 Sid [facility] TENSION FREE VAGINAL TAPE PROCEDURE 2022-12-16 13:15:00 [facility] CYSTOURETHROSCOPY 2022-12-16 13:15:00 [facility] EXAM UNDER ANESTHESIA 2022-12-16 13:15:00 [facility] POCT TEST 2022-12-16 13:00:00 Balta [facility] POCT TEST 2022-12-16 13:00:00 Balta [facility] POCT TEST 2022-12-16 13:00:00 Balta [facility] POCT TEST 2022-12-16 13:00:00 Thomas Gifford [facility] HOSPITAL ADMISSION 2022-12-16 06:01:00 Doctor Unassigned, [place] [facility] ADMISSION 2022-12-16 06:01:00 Doctor Unassigned, [place] [facility] GLYCOSYLATED HEMOGLOBIN (A1C) 2022-12-14 19:21:00 Nichole Flor [facility] CBC WITH DIFF 2022-12-14 19:21:00 Joshua Lausol [facility] HB ABO GROUPING 2022-12-14 19:21:00 Sid Rhona [facility] COMP. METABOLIC PANEL (88032) 2022-12-14 19:21:00 Joshua Lausol [facility] URINE CULTURE 2022-12-13 22:40:00 Lj Villarreal [facility] DSU PRE-OP 2022-12-13 06:01:00 Doctor Unassigned, [place] [facility] DSU PRE-OP 2022-12-13 06:01:00 Doctor Unassigned, [place] [facility] POCT URINALYSIS W/O SPECIFIC GRAVITY 2022-12-13 00:00:00 Lj Villarreal [facility] POCT URINALYSIS W/O SPECIFIC GRAVITY 2022-12-13 00:00:00 Lj Villarreal [facility] INSURANCE CORRESPONDENCE 2022-12-01 05:01:00 Doctor Unassigned, [place] [facility] INSURANCE CORRESPONDENCE 2022-12-01 05:01:00 Doctor Unassigned, [place] [facility] INSURANCE CORRESPONDENCE 2022-12-01 05:01:00 Doctor Unassigned, [place] [facility] INSURANCE CORRESPONDENCE 2022-12-01 05:01:00 Doctor Unassigned, [place] [facility] URINE CULTURE 2022-11-22 21:37:00 Lj Villarreal [facility] POCT URINALYSIS W/O SPECIFIC GRAVITY 2022-11-22 00:00:00 Lj Villarreal [facility] POCT URINALYSIS W/O SPECIFIC GRAVITY 2022-11-22 00:00:00 Lj Villarreal [facility] URODYNAMIC STUDY DATA 2022-11-11 05:01:00 Doctor Unassigned, [place] [facility] DISCLOSURE AND CONSENT, MEDICAL AND SURGICAL PROCEDURES 2022-11-11 05:01:00 Doctor Unassigned, [place] [facility] DISCLOSURE AND CONSENT, MEDICAL AND SURGICAL PROCEDURES 2022-11-11 05:01:00 Doctor Unassigned, [place] [facility] URINE CULTURE 2022-11-02 18:39:00 Lj Villarreal [facility] URINALYSIS MICROSCOPIC 2022-11-02 18:39:00 Lj Villarreal [facility] URINE CULTURE 2022-10-29 18:43:00 Lj Villarreal [facility] PATIENT QUESTIONNAIRE 2022-10-29 05:01:00 Doctor Unassigned, [place] [facility] PATIENT QUESTIONNAIRE 2022-10-29 05:01:00 Doctor Unassigned, [place] [facility] POCT URINALYSIS W/O SPECIFIC GRAVITY 2022-10-29 00:00:00 Lj Villarreal [facility] POCT URINALYSIS W/O SPECIFIC GRAVITY 2022-10-29 00:00:00 Lj Villarreal [facility] CONSENT FOR CONTRACEPTION 2022-10-19 05:01:00 Doctor Unassigned, [place] [facility] POCT TEST 2022-10-19 00:00:00 Joshua Lausol [facility] POCT TEST 2022-10-19 00:00:00 Joshua Lausol [facility] US PELVIS COMPLETE WITH TRANSVAGINAL 2022-10-12 17:36:27 Sid Rhona [facility] US PELVIS COMPLETE WITH TRANSVAGINAL 2022-10-12 17:36:27 Joshua Lausol [facility] POCT URINALYSIS W/O SPECIFIC GRAVITY 2022-09-28 00:00:00 Rhona Lau [facility] POCT URINALYSIS 2022-08-28 00:46:00 Corin Mir [facility] POCT TEST 2022-08-28 00:45:00 Corin Mir [facility] PAP SMEAR-LIQUID BASED-CP 2022-04-16 15:14:00 [facility] FOR [facility]AGNOSI S AND TREATMENT 2022-04-05 19:37:32 Doctor Unassigned, [place] [facility] POCT URINALYSIS W/O SPECIFIC GRAVITY 2022-04-05 00:00:00 Nichole Flor [facility] EXTERNAL PAP SMEAR 2021-02-11 14:00:00 Doctor Unassigned, [place] [facility] GLYCOSYLATED HEMOGLOBIN (A1C) 2019-04-02 21:11:00 Lurdes Lucas [facility] GC & CHLAMYDIA AMPLIFIED ASSAY 2019-04-02 21:11:00 Lurdes Lucas [facility] GALV ONLY - VAGINAL PATHOGEN S BY DNA PROBE 2019-04-02 21:11:00 Lurdes Lucas [facility] URINALYSIS 2019-03-08 18:50:00 Michael Ochoa [facility] POCT URINALYSIS 2019-03-08 00:00:00 Michael Ochoa [facility] Plan of Care Planned Activity Planned Date Details Comments Source Goal Plan of Care Note [code = 03002-4] Goal Plan of Care Note [code = 30120-9] Goal Plan of Care Note [code = 55253-2] Goal Plan of Care Note [code = 57617-1] Goal Plan of Care Note [code = 28416-3] Goal Plan of Care Note [code = 45857-5] Goal Plan of Care Note [code = 85872-1] Goal Plan of Care Note [code = 16817-3] Goal Plan of Care Note [code = 31497-7] Goal Plan of Care Note [code = 91942-3] Goal Plan of Care Note [code = 23310-6] Goal Plan of Care Note [code = 32105-6] Goal Plan of Care Note [code = 92668-3] Goal Plan of Care Note [code = 48719-5] Goal Plan of Care Note [code = 12603-1] Goal Plan of Care Note [code = 91942-5] Goal Plan of Care Note [code = 46145-3] Goal Plan of Care Note [code = 01262-0] Goal Plan of Care Note [code = 73454-3] Goal Plan of Care Note [code = 20604-2] Goal Plan of Care Note [code = 44345-1] Goal Plan of Care Note [code = 47523-0] Goal Plan of Care Note [code = 80850-7] Goal Plan of Care Note [code = 74806-9] Goal Plan of Care Note [code = 60828-9] Goal Plan of Care Note [code = 96879-5] Goal Plan of Care Note [code = 30030-9] Goal Plan of Care Note [code = 70645-9] Goal Plan of Care Note [code = 17516-9] Goal Plan of Care Note [code = 99716-3] Goal Plan of Care Note [code = 98563-2] Goal Plan of Care Note [code = 63371-9] Goal Plan of Care Note [code = 37040-8] Goal Plan of Care Note [code = 93484-2] Goal Plan of Care Note [code = 08273-1] Goal Plan of Care Note [code = 70382-6] Goal Plan of Care Note [code = 25973-6] Goal Plan of Care Note [code = 03412-9] Goal Plan of Care Note [code = 94154-3] Goal Plan of Care Note [code = 42258-8] Goal Plan of Care Note [code = 13773-6] Goal Plan of Care Note [code = 99082-8] Encounters Start Date/Time End Date/Time Encounter Type Admission Type Attending [facility] Care Department Encounter ID Source 2023-11-14 10:05:00 [facility] [id number] [facility] 2023-06-08 11:10:00 Outpatient Carlos [facility]ida [facility] [id number] [facility] 2023-06-06 15:12:00 [facility] [id number] [facility] 2023-04-26 11:02:00 Outpatient Nereida Gonzalez [facility] [id number] [facility] 2023-02-23 11:04:00 [facility] [id number] [facility] 2023-02-16 16:20:00 [facility] [id number] [facility] 2024-06-08 16:00:00 2024-06-08 16:00:00 Outpatient LJ BERNAL ELISHA [facility] [id number] [facility] 2024-05-25 20:20:00 2024-05-25 20:40:00 Urgent Care Kingsley White Unknown, Attending [facility] 1..840.114 350.1.13.10 4.2.7.2.686 [id number] [facility] 2024-05-25 20:20:00 2024-05-25 20:20:00 Outpatient KINGSLEY LOVE [facility] [id number] [facility] 2024-04-27 00:00:00 2024-04-27 00:00:00 (TEL) [facility] [id number] [facility] 2024-02-20 00:00:00 2024-03-24 18:20:27 Patient Secure Msg Doctor Unassigned, [place] Doctor Unassigned, [place] [facility] 1..840.114 350.1.13.10 4.2.7.2.686 [id number] [facility] 2024-03-15 00:00:00 2024-03-15 00:00:00 [facility]TEL) [facility] [id number] [facility] 2024-02-17 15:00:00 2024-02-17 16:04:42 Outpatient BERE SOTO [facility] [id number] [facility] 2024-02-17 15:00:00 2024-02-17 16:04:42 Office Visit Bere Hooker [facility] 1.2840.114 350.1.13.10 4.2.7.2.686 [id number] [facility] 2024-01-30 00:00:00 2024-01-30 00:00:00 (TEL) [facility] [id number] [facility] 2024-01-17 00:00:00 2024-01-17 08:47:08 Letter (Out) Maira [facility] OFFICE BUILDING 1.2.840.114 350.1.13.10 4.2.7.2.686 [id number] [facility] 2024-01-17 08:00:00 2024-01-17 08:15:00 Office Visit Maira [facility] MEDICAL OFFICE BUILDING 1.2.840.114 350.1.13.10 4.2.7.2.686 [id number] [facility] 2024-01-17 08:00:00 2024-01-17 08:00:00 Outpatient R BUNNY MENON [facility] [id number] [facility] 2023-12-14 08:45:00 2023-12-14 23:59:00 Outpatient MIKE MORRISON [facility] [id number] [facility] 2023-12-14 08:26:04 2023-12-14 23:59:00 Hospital Encounter Mike Masters [facility] 1.2.840.114 350.1.13.10 4.2.7.2.686 [id number] [facility] 2023-12-14 00:00:00 2023-12-14 00:00:00 (INJ) Injection [facility] [id number] [facility] 2023-12-06 11:15:00 2023-12-06 11:15:00 Outpatient R BUNNY MENON [facility] [id number] [facility] 2023-12-04 14:30:00 2023-12-04 14:30:00 Outpatient MIKE MORRISON [facility] [id number] [facility] 2023-12-01 10:30:00 2023-12-01 10:30:00 Outpatient MIKE MORRISON [facility] [id number] [facility] 2023-11-16 00:00:00 2023-11-16 00:00:00 OFFICE VISIT ESTAB PT LEVEL 4 [facility]C STLMLC [id number] [facility] 2023-11-16 00:00:00 2023-11-16 00:00:00 (TEL) STLMLC STLMLC [id number] [facility] 2023-11-14 11:00:00 2023-11-14 11:15:00 Office Visit Mike Masters [facility] 1.2.840.114 350.1.13.10 4.2.7.2.686 [id number] [facility] 2023-11-14 11:00:00 2023-11-14 11:00:00 Outpatient MIKE MORRISON [facility] [id number] [facility] 2023-11-07 00:00:00 2023-11-07 00:00:00 (TEL) STLMLC STLMLC [id number] [facility] 2023-11-03 00:00:00 2023-11-03 00:00:00 (TEL) [facility]LML[facility] ST[facility]C [id number] [facility] 2023-11-03 00:00:00 2023-11-03 00:00:00 OFFICE VISIT ESTAB PT LEVEL 3 [facility]LMLC STLMLC [id number] [facility] 2023-10-14 00:00:00 2023-10-14 00:00:00 (TEL) STLMLC STLMLC [id number] [facility] 2023-07-15 00:00:00 2023-07-15 00:00:00 (TEL) STLMLC STLMLC [id number] [facility] 2023-07-11 00:00:00 2023-07-11 09:55:29 [facility] 1..840.114 350.1.13.10 4.2.7.2.686 [id number] [facility] 2023-07-11 00:00:00 2023-07-11 09:13:05 Telephone Magi [facility] 1..840.114 350.1.13.10 4.2.7.2.686 [id number] [facility] 2023-07-08 00:00:00 2023-07-08 00:00:00 (TEL) STLMLC STLMLC [id number] [facility] 2023-05-26 11:00:00 2023-05-26 11:00:00 Outpatient MIKE MORRISON [facility] [id number] [facility] 2023-04-28 00:00:00 2023-04-28 00:00:00 PREV VISIT EST AGE 40-64 STLMLC STLMLC [id number] [facility] 2023-04-28 00:00:00 2023-04-28 00:00:00 (TEL) STLMLC STLMLC [id number] [facility] 2023-04-22 00:00:00 2023-04-22 00:00:00 (TEL) STLMLC STLMLC [id number] [facility] 2023-04-18 13:00:00 2023-04-18 13:00:00 Outpatient NICHOLE CATHERINE CHERYAL [facility] [id number] [facility] 2023-04-18 00:00:00 2023-04-18 00:00:00 Orders Only Doctor Unassigned, [place] [facility] 1..840.114 350.1.13.10 4.2.7.2.686 [id number] [facility] 2023-04-15 10:15:00 2023-04-15 10:48:57 Outpatient R MIKE MASTERS [facility] [id number] [facility] 2023-04-15 10:15:00 2023-04-15 10:48:57 Office Visit SonamMike [facility] 1..840.114 350.1.13.10 4.2.7.2.686 [id number] [facility] 2023-04-11 00:00:00 2023-04-11 00:00:00 Patient Secure Msg Doctor Unassigned, [place] [facility] 1..840.114 350.1.13.10 4.2.7.2.686 [id number] [facility] 2023-04-10 00:00:00 2023-04-10 00:00:00 Case Management Sapna Marksian Azul [facility] 1..840.114 350.1.13.10 4.2.7.2.686 [id number] [facility] 2023-04-08 11:00:00 2023-04-08 11:00:00 Outpatient R NICHOLE FLOR CHERYAL [facility] [id number] [facility] 2023-04-05 16:00:00 2023-04-05 16:00:00 Office Visit Selina Debbie Azul [facility] BUILD[facility] 1..840.114 350.1.13.10 4.2.7.2.686 [id number] [facility] 2023-04-05 16:00:00 2023-04-05 14:35:07 Outpatient R DEBBIE MARKS [facility] [id number] [facility] 2023-04-05 00:00:00 2023-04-05 00:00:00 Orders Only Doctor Unassigned, [place] [facility] 1.84.114 350.1.13.10 4.2.7.2.686 [id number] [facility] 2023-04-03 00:00:00 2023-04-03 00:00:00 Patient Secure Msg Doctor Unassigned, [place] [facility] 1.84.114 350.1.13.10 4.2.7.2.686 [id number] [facility] 2023-03-24 09:30:00 2023-03-24 09:45:00 Office Visit Mike Masters [facility] 1..114 350.1.13.10 4.2.7.2.686 [id number] [facility] 2023-03-24 09:30:00 2023-03-24 09:30:00 Outpatient MIKE MORRISON [facility] [id number] [facility] 2023-03-01 00:00:00 2023-03-01 00:00:00 Outpatient GC_GCBZW_Ka diyala_S [facility]EC[facility] [id number] [facility] 2023-03-01 00:00:00 2023-03-01 00:00:00 (TEL) [facility] [id number] [facility] 2023-02-25 00:00:00 2023-02-25 00:00:00 OFFICE VISIT NEW PT LEVEL 4 [facility] [id number] [facility] 2023-02-10 09:45:00 2023-02-10 10:00:00 Office Visit Mike Masters [facility] 1.84.114 350.1.13.10 4.2.7.2.686 [id number] [facility] 2023-02-10 09:45:00 2023-02-10 09:45:00 Outpatient MIKE MORRISON [facility] [id number] [facility] 2023-01-27 08:45:00 2023-01-27 09:42:12 Outpatient R MIKE MASTERS [facility] [id number] [facility] 2023-01-27 08:45:00 2023-01-27 09:42:12 Office Visit Mike Masters [facility] 1.0.114 350.1.13.10 4.2.7.2.686 [id number] [facility] 2023-01-19 00:00:00 2023-01-19 00:00:00 Transition of Care Radha BeyY NADIRA 1.0.114 350.1.13.10 4.2.7.2.686 [id number] [facility] 2023-01-18 00:00:00 2023-01-18 00:00:00 Telephone Mike Masters [facility] 1..114 350.1.13.10 4.2.7.2.686 [id number] [facility] 2023-01-05 22:40:00 2023-01-17 22:02:00 Inpatient X SONAM [facility] [id number] [facility] 2023-01-05 22:40:00 2023-01-17 22:02:00 Hospital [facility] Rahul Franco Whitney Walker, John Patrick [facility] 1..114 350.1.13.10 4.2.7.2.686 [id number] [facility] 2023-01-05 00:00:00 2023-01-05 00:00:00 Transition of Care Radha Bey 1.2.840.1 [id number] 3.104.2.7 .[id number] [facility] 2023-01-05 00:00:00 2023-01-05 00:00:00 Telephone Sonam Mike Mabry 1.2.840.1 [id number] 3.104.2.7 .[id number] [facility] 2023-01-05 00:00:00 2023-01-05 00:00:00 Travel 1.2.840.1 [id number] 3.104.2.7 .[id number] .[id number] 1.2.840.114 350.1.13.10 4.2.7.3.698 [id number] [facility] 2022-12-16 06:42:00 2023-01-04 13:46:00 Hospital Encounter Rhona Ham Jelani Walker, John Patrick 1.2.840.1 [id number] 3.104.2.7 .[id number] .[id number] [facility] 2022-12-16 06:42:00 2023-01-04 13:46:00 Inpatient R MIKE [facility] [id number] [facility] 2022-12-27 13:00:00 2022-12-27 13:00:00 Outpatient LJ BERNAL ELISHA [facility] [id number] [facility] 2022-12-24 00:00:00 2022-12-24 00:00:00 Letter (Out) Rhona Ham 1.2.840.1 15762.1.1 3.104.2.7 .3.123883 .8 [id number] [facility] 2022-12-18 14:43:00 2022-12-18 18:18:00 Anesthesia Event Charmaine Spring 1.2.840.1 86227.1.1 3.104.2.7 .3.801893 .8 [id number] [facility] 2022-12-18 14:15:00 2022-12-18 17:24:00 Surgery [place] Sow 1.2.840.1 69445.1.1 3.104.2.7 .3.980540 .8 [id number] [facility] 2022-12-16 07:10:00 2022-12-16 11:28:00 Surgery Rhona Ham 1.2.840.1 63748.1.1 3.104.2.7 .3.282669 .8 [id number] [facility] 2022-12-16 07:35:00 2022-12-16 10:43:00 Anesthesia Event Daksha Hernandez Billy J 1.2.840.1 97763.1.1 3.104.2.7 .3.776464 .8 [id number] [facility] 2022-12-16 00:00:00 2022-12-16 00:00:00 Orders Only Doctor Unassigned, [place] 1.2.840.1 12815.1.1 3.104.2.7 .3.915609 .8 [id number] [facility] 2022-12-14 13:15:00 2022-12-14 13:53:10 Outpatient R MAGALY HAML RHONA HAM [facility] [place] [id number] [facility] 2022-12-14 13:15:00 2022-12-14 13:53:10 Shoe Reconditioner Visit Rhona Ham 2, [facility] 1.2.840.1 65543.1.1 3.104.2.7 .3.695714 .8 [id number] [facility] 2022-12-13 14:00:00 2022-12-13 14:40:18 Outpatient R LJ VILLARREAL ELISHA [facility] [id number] [facility] 2022-12-13 14:00:00 2022-12-13 14:40:18 Office Visit Lj Villarreal 1.2.840.1 93617.1.1 3.104.2.7 .3.800325 .8 [id number] [facility] 2022-12-13 13:15:00 2022-12-13 13:43:07 Office Visit Luis Alberto leigh Rhona 1.2.840.1 37246.1.1 3.104.2.7 .3.869875 .8 [id number] [facility] 2022-12-13 00:00:00 2022-12-13 00:00:00 Orders Only Doctor Unassigned, [place] 1.2.840.1 56440.1.1 3.104.2.7 .3.822888 .8 [id number] [facility] 2022-12-13 00:00:00 2022-12-13 00:00:00 Travel 1.2.840.1 52791.1.1 3.104.2.7 .3.179152 .8 1.2.840.114 350.1.13.10 4.2.7.3.698 084.8 [id number] [facility] 2022-12-08 00:00:00 2022-12-08 00:00:00 Travel 1.2.840.1 89797.1.1 3.104.2.7 .3.659980 .8 1.2.840.114 350.1.13.10 4.2.7.3.698 084.8 [id number] [facility] 2022-12-06 00:00:00 2022-12-06 00:00:00 Prep For Surgery Lj Villarreal 1.2.840.1 40859.1.1 3.104.2.7 .3.762019 .8 [id number] [facility] 2022-12-05 00:00:00 2022-12-05 00:00:00 Outpatient GC_GCBZW_Ka riccoS [facility] [id number] [facility] 2022-11-29 11:30:00 2022-11-29 11:48:21 Outpatient R LUIS ALBERTO Aguilar RHONA DANIELACHESTER JOSHUA AguilarSOL [facility] [id number] [facility] 2022-11-29 11:30:00 2022-11-29 11:48:21 Office Visit Rhona Ham 1.2.840.1 12888.1.1 3.104.2.7 .3.671774 .8 [id number] [facility] 2022-11-29 00:00:00 2022-11-29 00:00:00 Travel 1.2.840.1 33103.1.1 3.104.2.7 .3.076076 .8 1.2.840.114 350.1.13.10 4.2.7.3.698 084.8 [id number] [facility] 2022-11-29 00:00:00 2022-11-29 00:00:00 Prep For Surgery Rhona Ham 1.2.840.1 89334.1.1 3.104.2.7 .3.275530 .8 [id number] [facility] 2022-11-27 20:00:00 2022-11-27 20:32:59 Outpatient R MIR ROBBINS [facility] [id number] [facility] 2022-11-27 20:00:00 2022-11-27 20:32:59 Urgent Care Unknown, Attending Mir Robbins 1.2.840.1 89802.1.1 3.104.2.7 .3.092457 .8 [id number] [facility] 2022-11-27 00:00:00 2022-11-27 00:00:00 Travel 1.2.840.1 22904.1.1 3.104.2.7 .3.977169 .8 1.2.840.114 350.1.13.10 4.2.7.3.698 084.8 [id number] [facility] 2022-11-22 16:00:00 2022-11-22 17:07:02 Outpatient LJ BERNAL LJ [facility] [id number] [facility] 2022-11-22 16:00:00 2022-11-22 17:07:02 Office Visit Lj Villarreal 1.2.840.1 63846.1.1 3.104.2.7 .3.824827 .8 [id number] [facility] 2022-11-22 00:00:00 2022-11-22 00:00:00 Travel 1.2.840.1 64270.1.1 3.104.2.7 .3.423095 .8 1.2.840.114 350.1.13.10 4.2.7.3.698 084.8 [id number] [facility] 2022-11-19 11:30:00 2022-11-19 11:30:00 Outpatient LJ BERNAL LJ [facility] [id number] [facility] 2022-11-11 13:00:00 2022-11-11 15:23:06 Office Visit Ricco Daigle Lele 1.2.840.1 21299.1.1 3.104.2.7 .3.285834 .8 [id number] [facility] 2022-11-11 13:00:00 2022-11-11 13:00:00 Outpatient R OXANARAMU WEINERLITO [facility] [place] [id number] [facility] 2022-11-11 00:00:00 2022-11-11 00:00:00 Travel 1.2.840.1 93414.1.1 3.104.2.7 .3.712688 .8 1.2.840.114 350.1.13.10 4.2.7.3.698 084.8 [id number] [facility] 2022-11-11 00:00:00 2022-11-11 00:00:00 Orders Only Doctor Unassigned, [place] 1.2.840.1 06522.1.1 3.104.2.7 .3.161150 .8 [id number] [facility] 2022-11-02 13:15:00 2022-11-02 13:46:09 Shoe Reconditioner Visit Lj Villarreal 2, [facility] Lab 1.2.840.1 07023.1.1 3.104.2.7 .3.387960 .8 [id number] [facility] 2022-11-02 13:15:00 2022-11-02 13:15:00 Outpatient R LJ VILLARREAL ELISHA [facility] [place] [id number] [facility] 2022-11-02 00:00:00 2022-11-02 00:00:00 Telephone Ricco Daigle 1.2.840.1 40904.1.1 3.104.2.7 .3.565810 .8 [id number] [facility] 2022-10-29 13:00:00 2022-10-29 15:52:13 Outpatient R LJ VILLARREAL ELISHA [facility] [place] [id number] [facility] 2022-10-29 13:00:00 2022-10-29 15:52:13 Office Visit Lj Villarreal 1.2.840.1 74281.1.1 3.104.2.7 .3.449133 .8 [id number] [facility] 2022-10-29 00:00:00 2022-10-29 00:00:00 Travel 1.2.840.1 43606.1.1 3.104.2.7 .3.422974 .8 1.2.840.114 350.1.13.10 4.2.7.3.698 084.8 [id number] [facility] 2022-10-29 00:00:00 2022-10-29 00:00:00 Orders Only Doctor Unassigned, [place] 1.2.840.1 47230.1.1 3.104.2.7 .3.253514 .8 [id number] [facility] 2022-10-29 00:00:00 2022-10-29 00:00:00 Patient Secure Msg Doctor Unassigned, [place] 1.2.840.1 33017.1.1 3.104.2.7 .3.246404 .8 [id number] [facility] 2022-10-28 10:30:00 2022-10-28 10:30:00 Outpatient R CORONADO-CHESTER S, RHONA CORONADO-CHESTER S, RHONA [facility] [id number] [facility] 2022-10-27 00:00:00 2022-10-27 00:00:00 Travel 1.2.840.1 47147.1.1 3.104.2.7 .3.973627 .8 1.2.840.114 350.1.13.10 4.2.7.3.698 084.8 [id number] [facility] 2022-10-19 13:15:00 2022-10-19 14:00:38 Outpatient R CORONADO-CHESTER S, RHONA CORONADO-CHESTER S, RHONA [facility] [id number] [facility] 2022-10-19 13:15:00 2022-10-19 14:00:38 Office Visit Coronado-Chester s Rhona 1.2.840.1 22440.1.1 3.104.2.7 .3.224381 .8 [id number] [facility] 2022-10-19 00:00:00 2022-10-19 00:00:00 Travel 1.2.840.1 17097.1.1 3.104.2.7 .3.797256 .8 1.2.840.114 350.1.13.10 4.2.7.3.698 084.8 [id number] [facility] 2022-10-13 00:00:00 2022-10-13 00:00:00 Travel 1.2.840.1 10040.1.1 3.104.2.7 .3.073808 .8 1.2.840.114 350.1.13.10 4.2.7.3.698 084.8 [id number] [facility] 2022-10-12 11:02:43 2022-10-12 23:59:00 Outpatient R CORONADO-CHETSER S, RHONA CORONADO-CHESTER S, RHONA [facility] [id number] [facility] 2022-10-12 11:00:00 2022-10-12 23:59:00 Hospital Encounter Coronado-Chester s, Rhona 1.2.840.1 52197.1.1 3.104.2.7 .3.536805 .8 [id number] [facility] 2022-09-30 00:00:00 2022-09-30 00:00:00 Telephone Coronado-Chester s, Rhona [facility] 1.2.840.114 350.1.13.10 4.2.7.2.686 [id number] [facility] 2022-09-28 14:00:00 2022-09-28 14:11:43 Outpatient R CORONADO-CHESTER S, RHONA CORONADO-CHESTER S, RHONA [facility] [id number] [facility] 2022-09-28 14:00:00 2022-09-28 14:11:43 Office Visit Coronado-Chester s, Rhona [facility] 1.2.840.114 350.1.13.10 4.2.7.2.686 [id number] [facility] 2022-09-28 11:30:00 2022-09-28 11:30:00 Outpatient R NICHOLE FLOR CHERYAL [facility] [id number] [facility] 2022-08-27 19:40:00 2022-08-27 20:01:14 Outpatient R RAJ VALDIVIA [facility] [id number] [facility] 2022-08-27 19:40:00 2022-08-27 20:01:14 Urgent Care Raj Valdivia Unknown, Attending [facility] 1.840.114 350.1.13.10 4.2.7.2.686 [id number] [facility] 2022-08-27 00:00:00 2022-08-27 00:00:00 Telephone Jackeline Valdivialeleadina [facility] 1.284.114 350.1.13.10 4.2.7.2.686 [id number] [facility] 2022-05-24 12:20:27 2022-05-24 23:59:00 Outpatient R ELIZABETH ROSALES [facility] [id number] [facility] 2022-05-24 12:20:27 2022-05-24 23:59:00 Hospital Encounter Elizabeth Rosales [facility] 1.84.114 350.1.13.10 4.2.7.2.686 [id number] [facility] 2022-04-26 00:00:00 2022-04-26 00:00:00 Patient Secure Msg Tariqvaleriedequan Nichole [facility] 1.284.114 350.1.13.10 4.2.7.2.686 [id number] [facility] 2022-04-21 00:00:00 2022-04-21 00:00:00 Outpatient R NICHOLE FLOR CHERYAL [facility] [id number] [facility] 2022-04-16 11:15:00 2022-04-16 11:30:00 Shoe Reconditioner Visit 2, Adc Lab Nichole Flor [facility] 1.0.114 350.1.13.10 4.2.7.2.686 [id number] [facility] 2022-04-16 09:00:00 2022-04-16 09:20:55 Outpatient R NICHOLE FLOR [facility] [id number] [facility] 2022-04-16 09:00:00 2022-04-16 09:20:55 [facility] 1..114 350.1.13.10 4.2.7.2.686 [id number] [facility] 2022-04-15 14:30:00 2022-04-15 14:30:00 Outpatient R MIR ROBBINS [facility] [id number] [facility] 2022-04-09 00:00:00 2022-04-09 00:00:00 Pre Visit Outreach Janelle Bray 1.840.114 350.1.13.10 4.2.7.2.686 [id number] [facility] 2022-04-05 13:30:00 2022-04-05 14:02:52 Outpatient R NICHOLE FLOR CHERYAL [facility] [id number] [facility] 2022-04-05 13:30:00 2022-04-05 14:02:52 [facility] 1..114 350.1.13.10 4.2.7.2.686 [id number] [facility] 2022-04-05 00:00:00 2022-04-05 00:00:00 Orders Only Doctor Unassigned, [place] [facility] 1.2.840.114 350.1.13.10 4.2.7.2.686 [id number] [facility] 2022-03-22 13:00:00 2022-03-22 13:00:00 Outpatient R UYEN RAMOS OGECHUKWU [facility] [id number] [facility] 2022-03-19 13:00:00 2022-03-19 13:00:00 Outpatient R UYEN RAMOS OGECHUKWU [facility] [id number] [facility] 2022-03-16 13:00:00 2022-03-16 13:00:00 Outpatient R UYEN RAMOS OGECHUKWU [facility] [id number] [facility] 2021-11-17 08:55:08 2021-11-17 08:55:08 Outpatient [facility] [id number] Suarez 2021-08-18 00:00:00 2021-08-18 00:00:00 Outpatient Visit [id number] 2021-02-05 14:30:00 2021-02-05 14:30:00 Outpatient R LURDES LUCAS [facility] [id number] [facility] 2020-01-01 13:15:00 2020-01-01 13:15:00 Outpatient R LURDES LUCAS [facility] [id number] [facility] 2019-05-02 00:00:00 2019-05-02 00:00:00 Telephone Lurdes Lucas [facility] 1.2.840.114 350.1.13.10 4.2.7.2.686 [id number] [facility] 2019-04-03 00:00:00 2019-04-03 00:00:00 Telephone Lurdes Lucas [facility]ILD [facility] 1.2.840.114 350.1.13.10 4.2.7.2.686 [id number] [facility] 2019-04-02 13:44:47 2019-04-02 15:10:52 Office Visit Lurdes Lucas [facility] 1.2.840.114 350.1.13.10 4.2.7.2.686 [id number] [facility] 2019-04-02 13:45:00 2019-04-02 13:45:00 Outpatient R LURDES LUCAS [facility] [id number] [facility] 2019-03-08 09:05:43 2019-03-08 10:53:40 Office Visit Michael Ochoa [facility] 1.2.840.114 350.1.13.10 4.2.7.2.686 [id number] [facility] 2017-08-17 13:15:00 2017-08-17 13:15:00 Outpatient [facility] [id number] [facility] 2017-07-27 10:55:00 2017-07-27 10:55:00 Outpatient [facility] [id number] [facility] 2017-07-14 14:45:00 2017-07-14 14:45:00 Outpatient [facility] [id number] [facility] 2017-06-30 15:00:2017-06-30 15:00:00 [facility] [id number] [facility] 2017-06-23 11:00:00 2017-06-23 11:00:00 [facility] [id number] [facility] 2017-06-15 13:45:00 2017-06-15 13:45:00 [facility] [id number] [facility] 2017-06-08 14:00:00 2017-06-08 14:00:00 [facility] [id number] [facility] 2017-06-01 14:00:00 2017-06-01 14:00:00 [facility] [id number] [facility] 2017-05-18 14:00:00 2017-05-18 14:00:00 Outpatient [facility] [id number] [facility] 2017-04-27 14:00:00 2017-04-27 14:00:00 Outpatient [facility] [id number] [facility] Results Test Description Test Time Test Comments Results Result Co mments Source [id number] 20:56:43* Test Item Value Reference Range Interpretation Comme nts POCT Creatinine (test code = 1208022968) 0.6 mg/dL 0.5-1.1 Lab Interpretation (test cod e = 18520-6) Normal [facility] W [id number] 15:42:45CT Abdomen and Pelvis with intravenous contrast. CLINICAL HISTORY: Abdominal hernia. DOSE: Up-to-date CT equipment and radiation dose reduction techniques wereemployed. CTDIvol: ?8.34 mGy. DLP: 435.56 ?mGy-cm. TECHNIQUE : Contiguous axial imaging from the level of the lung basesthrough the pubic sym physis were performed after the uncomplicatedadministration of nonionic contrast material. ?Coronaland sagittalreconstructions were obtained. Auto mA and/or iterative reconstruction wereused to reduce radiation dose. FINDINGS: ?Comparison has been made with noncontrast enhanced CT studies of01/17/2023. Lower lungs: Minimal groundglass hazy congestive changes in both lowerlungs in the focal area of fibrosis in the right lower lung. No pleuraleffusion or pericardial effusion. Air in the lower esophagus could beingested air during CT imaging. Liver, Gallbladder and Spleen: Irregular shaped 18 mm hypodense lesion inthe subdiaphragmatic right lobe of the liver is consistent with a smallcyst. Cholecystectomy clip is seen adjacent to the lower dorsal edge of theliver. Liver measures 16.2 cm andspleen is approximately 9.9 x 3.6 cm insize. Biliary ducts and the pancreatic duct appear of normalsize. Peritoneum: ?No free air or free fluid. No lymphadenopathy. Pancreas and Adrenals: ?Unremarkable pancreas and adrenal glands. Kidneys and Ureters: ?No visible calculi in the renal collecting systems. No hydroureter or hydronephrosis. 2.2 cm size hypodense lesion in theinterpolar region of right kidney is consistent with Bosniak type II cyst,unchanged since January 2023 study. No abnormal enhancement of kidneyscortex detected. Vessels: Minimal atherosclerosis and lower aorta near right common iliacartery origin. Retroperitoneum: No abnormal fluid or lymphadenopathy. Bowel: ?Normal appendix. Mild constipation noted with retained fecalmaterial and air throughout the large bowel. Changesof prior large bowelresection noted with normal appearing anastomotic site in the midline. Bladder and Reproductive Organs: ?S/P hysterectomy. Left ovary contains 3.9cm size cyst. Right ovary contains subcentimeter cysts, consistent withphysiologic changes. Grossly unremarkable on opacified urinarybladder. Bones: ?No acute bony pathology. No aggressive bone lesions visualized. Soft tissues: Midline supraumbilical abdominal wall hernia with fecesfilled loop of transverse colon protruding into its sac without anycomplications. Additional smaller right as well as left para midlinefat-containinghernias are also present slightly above the level ofumbilicus without any complications. CONCLUSION:1. Midline,right and left para midline supraumbilical abdominal wallhernias containing loop of large bowel and intra-abdominal fat without anycomplications.2. S/P cholecystectomy.3. Cyst in the left lobe of the liver and in the right kidney, stable sincenoncontrast enhanced CT scan of Januarynd contrast-enhanced CT scanof December 2022.[facility] Urinalysis w/o Specific [id number] 20:34:00* Test Item Value Reference Range Interpretation Comme [...] (test code = 3256) neg Negative - Negati ve POCT U KETONE (test code = 3258) neg Negative - Neg ative POCT U BLD (test code = 3257) neg Negative - Negati ve [facility] Urinalysis w/o Specific [id number] 20:34:00* Test Item Value Reference Range Interpretation Comme [...] (test code = 3256) neg Negative - Negati ve POCT U KETONE (test code = 3258) neg Negative - Neg ative POCT U BLD (test code = 3257) neg Negative - Negati ve [facility]IN2023-12-11 12:14:02* Test Item Value Reference Range Interpretation Comme nts PALB (test code = 59779-0) 33.5 mg/dL 18.0-45.0 Lab Interpretation (test cod e = 37316-8) Normal [facility]2023-12-11 12:07:04* Test Item Value Reference Range Interpretation Comme nts MAGNESIUM (test code = 1489164102) 1.8 mg/dL 1.7-2.4 Lab Interpretation (test cod e = 42673-4) Normal [facility]2023-12-11 12:07:04* Test Item Value Reference Range Interpretation Comme nts PHOSPHORUS (test code = 8273082982) 3.9 mg/dL 2.5-5.0 Lab Interpretation (test cod e = 86635-3) Normal [facility]TRIGLY[facility]ERIDES2023-12-11 12:07:04* Test Item Value Reference Range Interpretation Comme nts TRIG (test code = 9058918507) 266 mg/dL 30-170 H Lab Interpretation (test cod e = 92782-1) Abnormal [facility] HospitalGAMMA [id number] 12:07:04* Test Item Value Reference Range Interpretation Comme nts GGT (test code = 2614971583) 145 U/L 13-40 H Lab Interpretation (test cod e = 67794-1) Abnormal [facility] HospitalBASIC [facility]ABOLIC PANEL (NA, K, CL, CO2, GLUCOSE, BUN, CREATININE, CA)2023-01-17 12:07:03* Test Item Value Reference Range Interpretation Comme nts NA (test code = 0782455594) 139 mmol/L 135-145 K (test code = 6375051419) 4.4 mmol/L 3.5-5.0 CL (test code = 0400111499) 105 mmol/L 98-108 CO2 TOTAL (test code = 5428150837) 24 mmol/L 23-31 AGAP (test code = 9784265157) 10 2-16 BUN (test code = 6135022794) 18 mg/dL 7-23 GLUCOSE (test code = 6677103399) 130 mg/dL 70-110 H CREATININE (test code = 3043051314) 0.40 mg/dL 0.50-1.04 L CALCIUM (test code = 5090281713) 9.0 mg/dL 8.6-10.6 eGFR (test code = 02574-5) 126.9 mL/min/1.73m2 CKD-EPI eGFR (2020). Assuming creatinine has been stable day-to-day for at least three months, the eGFR indicates Category G1 (>= 90 mL/min/1.73 m2) Lab Interpretation (test code = 63305-8) Abnormal [facility] HospitalHEP[facility] FUNCTION PANEL (28860) (ALB,T.PRO,BILI T,BU/BC,ALT,AST,ALK PHOS)2023-01-17 12:07:03* Test Item Value Reference Range Interpretation Comme nts TOTAL BILI (test code = 2305127163) 0.3 mg/dL 0.1-1.1 BILI UNCON (test code = 6175780519) 0.2 mg/dL 0.1-1.1 BILI CONJ (test code = 9946286224) 0.0 mg/dL 0.0-0.3 T PROTEIN (test code = 7817066555) 7.2 g/dL 6.3-8.2 ALBUMIN (test code = 1507407981) 3.7 g/dL 3.5-5.0 ALK PHOS (test code = 5442366026) 100 U/L 34-122 ALTv (test code = 1742-6) 58 U/L 5-35 H AST(SGOT) (test code = 9378261746) 46 U/L 13-40 H Lab Interpretation (test cod e = 96566-2) Abnormal [facility] HospitalIONIZED [id number] 11:51:53* Test Item Value Reference Range Interpretation Comme nts IONIZED CA (test code = 9177939773) 4.80 mg/dL 4.50-5.30 PH SERUM (test code = 2457343295) 7.45 7.35-7.45 QUES Lab Interpretation (test cod e = 05512-4) Normal [facility] WITH [id number] 11:15:36* Test Item Value Reference Range Interpretation Comme nts WBC (test code = 6690-2) 7.72 See_Comment [Automated messa ge] The system which [...] g/dL 31.6-35.1 L RDW-SD (test code = 15551-8) 55.3 fL 39.0-49.9 H RDW-CV (test code = 788-0) 17.0 % 12.0-15.5 H PLT (test code = 777-3) 437 See_Comment H [Automated [employer] ge] The system which generated this result transmitted reference range: 166 - 358 10*3/?L. The reference range was not used to interpret this result as normal/abnormal. MPV (test code = 24444-2) 10.1 fL 9.5-12.9 NRBC/100 WBC (test code = 6405247087) 0.0 See_Comment [Automated Did[employer] ssage] The system which generated this result transmitted reference range: 0.0 - 10.0 /100 WBCs. The reference range was not used to interpret this result as normal/abnormal. NRBC x10^3 (test code = 5923441670) See_Comment [Automated [employer]] The system which generated this result transmitted reference range: 10*3/?L. The reference range was not used to interpret this result as normal/abnormal. GRAN MAT (NEUT) % (test code = 770-8) 61.1 % IMM GRAN % (test code = 4711522647) 0.60 % LYMPH % (test code = 736-9) 25.1 % MONO % (test code = 5905-5) 7.4 % EOS % (test code = 713-8) 5.3 % BASO % (test code = 706-2) 0.5 % GRAN MAT x10^3(ANC) (test code = 5704234802) 4.71 10*3/uL 1.88-7.09 IMM GRAN x10^3 (test code = [id number]) 0.05 10*3/uL 0.00-0.06 LYMPH x10^3 (test code = 731-0) 1.94 10*3/uL 1.32-3.29 MONO x10^3 (test code = 742-7) 0.57 10*3/uL 0.33-0.92 EOS x10^3 (test code = 711-2) 0.41 10*3/uL 0.03-0.39 H BASO x10^3 (test code = 704-7) 0.04 10*3/uL 0.01-0.07 Lab Interpretation (test code = 08201-9) Abnormal [facility] WITH [id number] 14:05:06* Test Item Value Reference Range Interpretation [...] 31.8 g/dL 31.6-35.1 RDW-SD (test code = 07517-6) 54.0 fL 39.0-49.9 H RDW-CV (test code = 788-0) 16.9 % 12.0-15.5 H PLT (test code = 777-3) 448 See_Comment H [Automated messa ge] The system which generated this result transmitted reference range: 166 - 358 10*3/?L. The reference range was not used to interpret this result as normal/abnormal. MPV (test code = 24855-9) 9.8 fL 9.5-12.9 NRBC/100 WBC (test code = [id number]) 0.0 See_Comment [Automated me ssage] The system which generated this result transmitted reference range: 0.0 - 10.0 /100 WBCs. The reference range was not used to interpret this result as normal/abnormal. NRBC x10^3 (test code = [id number]) See_Comment [Automated messa ge] The system which generated this result transmitted reference range: 10*3/?L. The reference range was not used to interpret this result as normal/abnormal. GRAN MAT (NEUT) % (test code = 770-8) 68.9 % IMM GRAN % (test code = [id number]) 0.60 % LYMPH % (test code = 736-9) 18.4 % MONO % (test code = 5905-5) 6.9 % EOS % (test code = 713-8) 4.7 % BASO % (test code = 706-2) 0.5 % GRAN MAT x10^3(ANC) (test code = 1296152471) 6.49 10*3/uL 1.88-7.09 IMM GRAN x10^3 (test code = 2767102107) 0.06 10*3/uL 0.00-0.06 LYMPH x10^3 (test code = 731-0) 1.73 10*3/uL 1.32-3.29 MONO x10^3 (test code = 742-7) 0.65 10*3/uL 0.33-0.92 EOS x10^3 (test code = 711-2) 0.44 10*3/uL 0.03-0.39 H BASO x10^3 (test code = 704-7) 0.05 10*3/uL 0.01-0.07 Lab Interpretation (test code = 76465-5) [facility]* Test Item Value Reference Range Interpretation Comme nts PHOSPHORUS (test code = 4007535843) 3.7 mg/dL 2.5-5.0 Lab Interpretation (test cod e = 76767-6) [facility] 12:30:01* Test Item Value Reference Range Interpretation Comme nts MAGNESIUM (test code = 2981610247) 1.9 mg/dL 1.7-2.4 Lab Interpretation (test cod e = 89287-1) Normal [facility] METABOLIC PANEL (NA, K, CL, CO2, GLUCOSE, BUN, CREATININE, CA)2023-01-16 12:30:01* Test Item Value Reference Range Interpretation Comme nts NA (test code = 2524090236) 137 mmol/L 135-145 K (test code = 9534275078) 4.3 mmol/L 3.5-5.0 CL (test code = 5818753003) 104 mmol/L 98-108 CO2 TOTAL (test code = 4289285343) 24 mmol/L 23-31 AGAP (test code = 2846157074) 9 2-16 BUN (test code = 6377899951) 17 mg/dL 7-23 GLUCOSE (test code = 5608462523) 128 mg/dL 70-110 H CREATININE (test code = 9876181207) 0.37 mg/dL 0.50-1.04 L CALCIUM (test code = 0372590006) 8.7 mg/dL 8.6-10.6 eGFR (test code = 02195-8) 129.3 mL/min/1.73m2 CKD-EPI eGFR (2020). Assuming creatinine has been stable day-to-day for at least three months, the eGFR indicates Category G1 (>= 90 mL/min/1.73 m2) Lab Interpretation (test code = 89041-7) Abnormal [facility] METABOLIC PANEL (NA, K, CL, CO2, GLUCOSE, BUN, CREATININE, CA)2023-01-13 12:47:47* Test Item Value Reference Range Interpretation Comme nts NA (test code = 6990565868) 136 mmol/L 135-145 K (test code = 2370664819) 4.2 mmol/L 3.5-5.0 CL (test code = 1745195865) 99 mmol/L 98-108 CO2 TOTAL (test code = 0834823135) 30 mmol/L 23-31 AGAP (test code = 6995224865) 7 2-16 BUN (test code = 2106307780) 16 mg/dL 7-23 GLUCOSE (test code = 4458716635) 122 mg/dL 70-110 H CREATININE (test code = 4604151452) 0.47 mg/dL 0.50-1.04 L CALCIUM (test code = 2338939864) 8.8 mg/dL 8.6-10.6 eGFR (test code = 36232-2) 122.1 mL/min/1.73m2 CKD-EPI eGFR (2020). Assuming creatinine has been stable day-to-day for at least three months, the eGFR indicates Category G1 (>= 90 mL/min/1.73 m2) Lab Interpretation (test code = 11283-9) [facility] 12:44:08* Test Item Value Reference Range Interpretation Comme nts PHOSPHORUS (test code = 9724900184) 5.0 mg/dL 2.5-5.0 Lab Interpretation (test cod e = 08722-7) [facility] 12:44:08* Test Item Value Reference Range Interpretation Comme nts MAGNESIUM (test code = 6645454772) 2.0 mg/dL 1.7-2.4 Lab Interpretation (test cod e = 57595-6) [facility] [id number] 12:06:43* Test Item Value Reference Range Interpretation [...] 32.1 g/dL 31.6-35.1 RDW-SD (test code = 38314-1) 48.8 fL 39.0-49.9 RDW-CV (test code = 788-0) 16.1 % 12.0-15.5 H PLT (test code = 777-3) 481 See_Comment H [Automated messa ge] The system which generated this result transmitted reference range: 166 - 358 10*3/?L. The reference range was not used to interpret this result as normal/abnormal. MPV (test code = 63360-6) 9.4 fL 9.5-12.9 L NRBC/100 WBC (test code = 2973496178) 0.2 See_Comment [Automated Didi-Dache ssage] The system which generated this result transmitted reference range: 0.0 - 10.0 /100 WBCs. The reference range was not used to interpret this result as normal/abnormal. NRBC x10^3 (test code = 7376460845) 0.02 See_Comment [Automated messa ge] The system which generated this result transmitted reference range: 10*3/?L. The reference range was not used to interpret this result as normal/abnormal. GRAN MAT (NEUT) % (test code = 770-8) 68.6 % IMM GRAN % (test code = 6735511329) 2.00 % LYMPH % (test code = 736-9) 18.8 % MONO % (test code = 5905-5) 6.6 % EOS % (test code = 713-8) 3.4 % BASO % (test code = 706-2) 0.6 % GRAN MAT x10^3(ANC) (test code = 3945846342) 7.40 10*3/uL 1.88-7.09 H IMM GRAN x10^3 (test code = 9373503562) 0.22 10*3/uL 0.00-0.06 H LYMPH x10^3 (test code = 731-0) 2.03 10*3/uL 1.32-3.29 MONO x10^3 (test code = 742-7) 0.71 10*3/uL 0.33-0.92 EOS x10^3 (test code = 711-2) 0.37 10*3/uL 0.03-0.39 BASO x10^3 (test code = 704-7) 0.07 10*3/uL 0.01-0.07 Lab Interpretation (test code = 37250-5) [facility] 11:57:13* Test Item Value Reference Range Interpretation Comme nts PHOSPHORUS (test code = 7827441966) 4.4 mg/dL 2.5-5.0 Lab Interpretation (test cod e = 88984-6) [facility] 11:57:13* Test Item Value Reference Range Interpretation Comme nts MAGNESIUM (test code = 6518596451) 1.9 mg/dL 1.7-2.4 Lab Interpretation (test cod e = 62553-2) Normal [facility] METABOLIC PANEL (NA, K, CL, CO2, GLUCOSE, BUN, CREATININE, CA)2023-01-12 11:57:13* Test Item Value Reference Range Interpretation Comme nts NA (test code = 4061000905) 137 mmol/L 135-145 K (test code = 4466291515) 4.9 mmol/L 3.5-5.0 CL (test code = 0175973249) 101 mmol/L 98-108 CO2 TOTAL (test code = 2140268099) 26 mmol/L 23-31 AGAP (test code = 8884394428) 10 2-16 BUN (test code = 7439373308) 12 mg/dL 7-23 GLUCOSE (test code = 3653481703) 125 mg/dL 70-110 H CREATININE (test code = 1563034887) 0.38 mg/dL 0.50-1.04 L CALCIUM (test code = 1811938211) 8.8 mg/dL 8.6-10.6 eGFR (test code = 98292-3) 128.5 mL/min/1.73m2 CKD-EPI eGFR (2020). Assuming creatinine has been stable day-to-day for at least three months, the eGFR indicates Category G1 (>= 90 mL/min/1.73 m2) Lab Interpretation (test code = 19539-0) Abnormal [facility] WITH [id number] 11:49:30* Test Item Value Reference Range Interpretation [...] g/dL 31.6-35.1 L RDW-SD (test code = 87799-7) 48.4 fL 39.0-49.9 RDW-CV (test code = 788-0) 15.7 % 12.0-15.5 H PLT (test code = 777-3) 545 See_Comment H [Automated messa ge] The system which generated this result transmitted reference range: 166 - 358 10*3/?L. The reference range was not used to interpret this result as normal/abnormal. MPV (test code = 16754-3) 9.2 fL 9.5-12.9 L NRBC/100 WBC (test code = 6924426598) 0.3 See_Comment [Automated me ssage] The system which generated this result transmitted reference range: 0.0 - 10.0 /100 WBCs. The reference range was not used to interpret this result as normal/abnormal. NRBC x10^3 (test code = 2820680672) 0.03 See_Comment [Automated messa ge] The system which generated this result transmitted reference range: 10*3/?L. The reference range was not used to interpret this result as normal/abnormal. GRAN MAT (NEUT) % (test code = 770-8) 68.8 % IMM GRAN % (test code = 5874006078) 2.50 % LYMPH % (test code = 736-9) 18.9 % MONO % (test code = 5905-5) 6.1 % EOS % (test code = 713-8) 3.2 % BASO % (test code = 706-2) 0.5 % GRAN MAT x10^3(ANC) (test code = 2388021467) 8.07 10*3/uL 1.88-7.09 H IMM GRAN x10^3 (test code = 0017860542) 0.29 10*3/uL 0.00-0.06 H LYMPH x10^3 (test code = 731-0) 2.22 10*3/uL 1.32-3.29 MONO x10^3 (test code = 742-7) 0.71 10*3/uL 0.33-0.92 EOS x10^3 (test code = 711-2) 0.38 10*3/uL 0.03-0.39 BASO x10^3 (test code = 704-7) 0.06 10*3/uL 0.01-0.07 Lab Interpretation (test code = 56064-3) Abnormal [facility] WITH [id number] 11:53:42* Test Item Value Reference Range Interpretation [...] 31.6 g/dL 31.6-35.1 RDW-SD (test code = 12238-3) 47.9 fL 39.0-49.9 RDW-CV (test code = 788-0) 15.1 % 12.0-15.5 PLT (test code = 777-3) 785 See_Comment H [Automated message] The system which generated this result transmitted reference range: 166 - 358 10*3/?L. The reference range was not used to interpret this result as normal/abnormal. MPV (test code = 19479-8) 8.9 fL 9.5-12.9 L NRBC/100 WBC (test code = 1899021662) 0.0 See_Comment [Automated message] The system which generated this result transmitted reference range: 0.0 - 10.0 /100 WBCs. The reference range was not used to interpret this result as normal/abnormal. NRBC x10^3 (test code = 1813301268) See_Comment [Automated message] The system which generated this result transmitted reference range: 10*3/?L. The reference range was not used to interpret this result as normal/abnormal. GRAN MAT (NEUT) % (test code = 770-8) 76.8 % IMM GRAN % (test code = 2763523681) 3.80 % LYMPH % (test code = 736-9) 10.9 % MONO % (test code = 5905-5) 4.8 % EOS % (test code = 713-8) 3.3 % BASO % (test code = 706-2) 0.4 % GRAN MAT x10^3(ANC) (test code = 5440586128) 13.30 10*3/uL 1.88-7.09 H IMM GRAN x10^3 (test code = 7750030903) 0.65 10*3/uL 0.00-0.06 H LYMPH x10^3 (test code = 731-0) 1.88 10*3/uL 1.32-3.29 MONO x10^3 (test code = 742-7) 0.83 10*3/uL 0.33-0.92 EOS x10^3 (test code = 711-2) 0.57 10*3/uL 0.03-0.39 H BASO x10^3 (test code = 704-7) 0.07 10*3/uL 0.01-0.07 Lab Interpretation (test code = 47320-5) Abnormal [facility] METABOLIC PANEL (NA, K, CL, CO2, GLUCOSE, BUN, CREATININE, CA)2023-01-08 11:40:36* Test Item Value Reference Range Interpretation Comme nts NA (test code = 3041266184) 136 mmol/L 135-145 K (test code = 7800078443) 3.9 mmol/L 3.5-5.0 CL (test code = 3565069076) 107 mmol/L 98-108 CO2 TOTAL (test code = 2878090775) 19 mmol/L 23-31 L AGAP (test code = 3107089732) 10 2-16 BUN (test code = 5381974470) 5 mg/dL 7-23 L GLUCOSE (test code = 0527433639) 111 mg/dL 70-110 H CREATININE (test code = 4965185505) 0.36 mg/dL 0.50-1.04 L CALCIUM (test code = 3941631809) 8.1 mg/dL 8.6-10.6 L eGFR (test code = 47872-7) 130.2 mL/min/1.73m2 CKD-EPI eGFR (2020). Assuming creatinine has been stable day-to-day for at least three months, the eGFR indicates Category G1 (>= 90 mL/min/1.73 m2) Lab Interpretation (test code = 64187-6) Abnormal [facility] WITH [id number] 11:11:11* Test Item Value Reference Range Interpretation [...] 31.8 g/dL 31.6-35.1 RDW-SD (test code = 58770-4) 47.6 fL 39.0-49.9 RDW-CV (test code = 788-0) 14.8 % 12.0-15.5 PLT (test code = 777-3) 829 See_Comment H [Automated message] The system which generated this result transmitted reference range: 166 - 358 10*3/?L. The reference range was not used to interpret this result as normal/abnormal. MPV (test code = 81677-9) 9.0 fL 9.5-12.9 L NRBC/100 WBC (test code = 7843970290) 0.0 See_Comment [Automated message] The system which generated this result transmitted reference range: 0.0 - 10.0 /100 WBCs. The reference range was not used to interpret this result as normal/abnormal. NRBC x10^3 (test code = 2788466652) See_Comment [Automated message] The system which generated this result transmitted reference range: 10*3/?L. The reference range was not used to interpret this result as normal/abnormal. GRAN MAT (NEUT) % (test code = 770-8) 78.6 % IMM GRAN % (test code = 3843057310) 4.30 % LYMPH % (test code = 736-9) 8.4 % MONO % (test code = 5905-5) 6.1 % EOS % (test code = 713-8) 2.2 % BASO % (test code = 706-2) 0.4 % GRAN MAT x10^3(ANC) (test code = 4134979842) 14.12 10*3/uL 1.88-7.09 H IMM GRAN x10^3 (test code = 1207625395) 0.78 10*3/uL 0.00-0.06 H LYMPH x10^3 (test code = 731-0) 1.52 10*3/uL 1.32-3.29 MONO x10^3 (test code = 742-7) 1.09 10*3/uL 0.33-0.92 H EOS x10^3 (test code = 711-2) 0.40 10*3/uL 0.03-0.39 H BASO x10^3 (test code = 704-7) 0.08 10*3/uL 0.01-0.07 H Lab Interpretation (test code = 34388-2) Abnormal [facility] METABOLIC PANEL (NA, K, CL, CO2, GLUCOSE, BUN, CREATININE, CA)2023-01-07 10:33:30* Test Item Value Reference Range Interpretation Comme nts NA (test code = 4615271088) 136 mmol/L 135-145 K (test code = 4151573316) 4.1 mmol/L 3.5-5.0 CL (test code = 4680080680) 108 mmol/L 98-108 CO2 TOTAL (test code = 4341792068) 19 mmol/L 23-31 L AGAP (test code = 1807806273) 9 2-16 BUN (test code = 4468951959) 4 mg/dL 7-23 L GLUCOSE (test code = 9943243181) 98 mg/dL 70-110 CREATININE (test code = 0098372107) 0.39 mg/dL 0.50-1.04 L CALCIUM (test code = 9216530182) 8.4 mg/dL 8.6-10.6 L eGFR (test code = 86172-9) 127.7 mL/min/1.73m2 CKD-EPI eGFR (2020). Assuming creatinine has been stable day-to-day for at least three months, the eGFR indicates Category G1 (>= 90 mL/min/1.73 m2) Lab Interpretation (test code = 92144-4) [facility] 10:33:30* Test Item Value Reference Range Interpretation Comme nts MAGNESIUM (test code = 5485906173) 1.8 mg/dL 1.7-2.4 Lab Interpretation (test cod e = 31713-2) [facility] 10:33:30* Test Item Value Reference Range Interpretation Comme nts PHOSPHORUS (test code = 6569922650) 3.5 mg/dL 2.5-5.0 Lab Interpretation (test cod e = 90570-6) Normal [facility] METABOLIC PANEL (NA, K, CL, CO2, GLUCOSE, BUN, CREATININE, CA)2023-01-06 15:05:58* Test Item Value Reference Range Interpretation Comme nts NA (test code = 7686010702) 134 mmol/L 135-145 L K (test code = 2853310500) 3.5 mmol/L 3.5-5.0 CL (test code = 9369189302) 103 mmol/L 98-108 CO2 TOTAL (test code = 1973798024) 20 mmol/L 23-31 L AGAP (test code = 0476755014) 11 2-16 BUN (test code = 8998422158) 5 mg/dL 7-23 L GLUCOSE (test code = 3179505449) 90 mg/dL 70-110 CREATININE (test code = 8382229909) 0.47 mg/dL 0.50-1.04 L CALCIUM (test code = 8768134585) 8.1 mg/dL 8.6-10.6 L eGFR (test code = 71679-5) 122.1 mL/min/1.73m2 CKD-EPI eGFR (2020). Assuming creatinine has been stable day-to-day for at least three months, the eGFR indicates Category G1 (>= 90 mL/min/1.73 m2) Lab Interpretation (test code = 16024-6) Abnormal [facility] WITH [id number] 14:56:55* Test Item Value Reference Range Interpretation [...] g/dL 31.6-35.1 L RDW-SD (test code = 99252-7) 46.7 fL 39.0-49.9 RDW-CV (test code = 788-0) 14.6 % 12.0-15.5 PLT (test code = 777-3) 837 See_Comment H [Automated message] The system which generated this result transmitted reference range: 166 - 358 10*3/?L. The reference range was not used to interpret this result as normal/abnormal. MPV (test code = 24072-4) 9.0 fL 9.5-12.9 L NRBC/100 WBC (test code = 5022315349) 0.0 See_Comment [Automated message] The system which generated this result transmitted reference range: 0.0 - 10.0 /100 WBCs. The reference range was not used to interpret this result as normal/abnormal. NRBC x10^3 (test code = 6615252016) See_Comment [Automated message] The system which generated this result transmitted reference range: 10*3/?L. The reference range was not used to interpret this result as normal/abnormal. GRAN MAT (NEUT) % (test code = 770-8) 82.8 % IMM GRAN % (test code = 8007449026) 3.10 % LYMPH % (test code = 736-9) 6.4 % MONO % (test code = 5905-5) 5.8 % EOS % (test code = 713-8) 1.6 % BASO % (test code = 706-2) 0.3 % GRAN MAT x10^3(ANC) (test code = 3054998043) 14.38 10*3/uL 1.88-7.09 H IMM GRAN x10^3 (test code = 2622489698) 0.53 10*3/uL 0.00-0.06 H LYMPH x10^3 (test code = 731-0) 1.11 10*3/uL 1.32-3.29 L MONO x10^3 (test code = 742-7) 1.01 10*3/uL 0.33-0.92 H EOS x10^3 (test code = 711-2) 0.27 10*3/uL 0.03-0.39 BASO x10^3 (test code = 704-7) 0.06 10*3/uL 0.01-0.07 POLYCHROMASIA (test code = 33004-1) 2+ See_Comment [Automated message] The system which generated this result transmitted reference range: 2+. The reference range was not used to interpret this result as normal/abnormal. Lab Interpretation (test code = 54253-3) Abnormal [facility] WITH [id number] 06:22:43* Test Item Value Reference Range Interpretation [...] 32.3 g/dL 31.6-35.1 RDW-SD (test code = 26761-9) 46.5 fL 39.0-49.9 RDW-CV (test code = 788-0) 14.5 % 12.0-15.5 PLT (test code = 777-3) 869 See_Comment H [Automated message] The system which generated this result transmitted reference range: 166 - 358 10*3/?L. The reference range was not used to interpret this result as normal/abnormal. MPV (test code = 02054-4) 9.1 fL 9.5-12.9 L NRBC/100 WBC (test code = 1860353651) 0.0 See_Comment [Automated message] The system which generated this result transmitted reference range: 0.0 - 10.0 /100 WBCs. The reference range was not used to interpret this result as normal/abnormal. NRBC x10^3 (test code = 7896438196) See_Comment [Automated message] The system which generated this result transmitted reference range: 10*3/?L. The reference range was not used to interpret this result as normal/abnormal. GRAN MAT (NEUT) % (test code = 770-8) 77.9 % IMM GRAN % (test code = 7031292690) 4.40 % LYMPH % (test code = 736-9) 8.2 % MONO % (test code = 5905-5) 6.7 % EOS % (test code = 713-8) 2.5 % BASO % (test code = 706-2) 0.3 % GRAN MAT x10^3(ANC) (test code = 9837670613) 13.99 10*3/uL 1.88-7.09 H IMM GRAN x10^3 (test code = 4671425685) 0.79 10*3/uL 0.00-0.06 H LYMPH x10^3 (test code = 731-0) 1.48 10*3/uL 1.32-3.29 MONO x10^3 (test code = 742-7) 1.20 10*3/uL 0.33-0.92 H EOS x10^3 (test code = 711-2) 0.45 10*3/uL 0.03-0.39 H BASO x10^3 (test code = 704-7) 0.06 10*3/uL 0.01-0.07 Lab Interpretation (test code = 77746-4) [facility]* Test Item Value Reference Range Interpretation Comme nts LIPASE (test code = 6848139003) 80 U/L 0-220 Lab Interpretation (test cod e = 91335-9) [facility] 06:05:03* Test Item Value Reference Range Interpretation Comme nts LIPASE (test code = 6332580272) 80 U/L 0-220 Lab Interpretation (test cod e = 68811-4) [facility]98326[facility] (ALB,T.PRO,BILI T,BU/BC,ALT,AST,ALK PHOS)2023-01-06 06:05:02* Test Item Value Reference Range Interpretation Comme nts TOTAL BILI (test code = 3323701399) 0.4 mg/dL 0.1-1.1 BILI UNCON (test code = 7875164471) 0.2 mg/dL 0.1-1.1 BILI CONJ (test code = 5553846613) 0.0 mg/dL 0.0-0.3 T PROTEIN (test code = 1333439073) 6.4 g/dL 6.3-8.2 ALBUMIN (test code = 2173399230) 3.1 g/dL 3.5-5.0 L ALK PHOS (test code = 4696758709) 129 U/L 34-122 H ALTv (test code = 1742-6) 33 U/L 5-35 AST(SGOT) (test code = 7102893256) 23 U/L 13-40 Lab Interpretation (test cod e = 66731-5) [facility] (NA, K, CL, CO2, GLUCOSE, BUN, CREATININE, CA)2023-01-06 06:05:02* Test Item Value Reference Range Interpretation Comme nts NA (test code = 9164866874) 133 mmol/L 135-145 L K (test code = 3667736396) 4.3 mmol/L 3.5-5.0 CL (test code = 2019646619) 101 mmol/L 98-108 CO2 TOTAL (test code = 1898241178) 20 mmol/L 23-31 L AGAP (test code = 0410366767) 12 2-16 BUN (test code = 0182627605) 9 mg/dL 7-23 GLUCOSE (test code = 3201968212) 82 mg/dL 70-110 CREATININE (test code = 6398909019) 0.49 mg/dL 0.50-1.04 L CALCIUM (test code = 6659360802) 8.9 mg/dL 8.6-10.6 eGFR (test code = 91251-5) 120.9 mL/min/1.73m2 CKD-EPI eGFR (2020). Assuming creatinine has been stable day-to-day for at least three months, the eGFR indicates Category G1 (>= 90 mL/min/1.73 m2) Lab Interpretation (test code = 16545-5) [facility]53293[facility] (ALB,T.PRO,BILI T,BU/BC,ALT,AST,ALK PHOS)2023-01-06 06:05:02* Test Item Value Reference Range Interpretation Comme nts TOTAL BILI (test code = 4378325127) 0.4 mg/dL 0.1-1.1 BILI UNCON (test code = 8391535006) 0.2 mg/dL 0.1-1.1 BILI CONJ (test code = 4706681540) 0.0 mg/dL 0.0-0.3 T PROTEIN (test code = 1373270880) 6.4 g/dL 6.3-8.2 ALBUMIN (test code = 5452428068) 3.1 g/dL 3.5-5.0 L ALK PHOS (test code = 9343240181) 129 U/L 34-122 H ALTv (test code = 1742-6) 33 U/L 5-35 AST(SGOT) (test code = 8931194282) 23 U/L 13-40 Lab Interpretation (test cod e = 78120-5) [facility] 06:05:02* Test Item Value Reference Range Interpretation Comme nts MAGNESIUM (test code = 9869209114) 1.8 mg/dL 1.7-2.4 Lab Interpretation (test cod e = 94732-2) [facility] Whole [id number] 05:50:15* Test Item Value Reference Range Interpretation Comme nts LACTIC ACID (test code = 4488725090) 1.03 mmol/L 0.50-2.20 Lab Interpretation (test cod e = 05486-4) [facility] Whole [id number] 05:50:15* Test Item Value Reference Range Interpretation Comme nts LACTIC ACID (test code = 8186661797) 1.03 mmol/L 0.50-2.20 Lab Interpretation (test cod e = 70428-0) [facility] [id number] 12:59:51* Test Item Value Reference Range Interpretation [...] 32.9 g/dL 31.6-35.1 RDW-SD (test code = 96920-7) 45.5 fL 39.0-49.9 RDW-CV (test code = 788-0) 14.4 % 12.0-15.5 PLT (test code = 777-3) 942 See_Comment H [Automated messa ge] The system which generated this result transmitted reference range: 166 - 358 10*3/?L. The reference range was not used to interpret this result as normal/abnormal. MPV (test code = 02029-0) 9.1 fL 9.5-12.9 L NRBC/100 WBC (test code = 1061875029) 0.2 See_Comment [Automated me ssage] The system which generated this result transmitted reference range: 0.0 - 10.0 /100 WBCs. The reference range was not used to interpret this result as normal/abnormal. NRBC x10^3 (test code = 1109701996) 0.03 See_Comment [Automated messa ge] The system which generated this result transmitted reference range: 10*3/?L. The reference range was not used to interpret this result as normal/abnormal. GRAN MAT (NEUT) % (test code = 770-8) 71.6 % IMM GRAN % (test code = 6829008618) 6.20 % LYMPH % (test code = 736-9) 12.1 % MONO % (test code = 5905-5) 7.4 % EOS % (test code = 713-8) 2.2 % BASO % (test code = 706-2) 0.5 % GRAN MAT x10^3(ANC) (test code = 9077302771) 9.29 10*3/uL 1.88-7.09 H IMM GRAN x10^3 (test code = 1005511374) 0.80 10*3/uL 0.00-0.06 H LYMPH x10^3 (test code = 731-0) 1.57 10*3/uL 1.32-3.29 MONO x10^3 (test code = 742-7) 0.96 10*3/uL 0.33-0.92 H EOS x10^3 (test code = 711-2) 0.29 10*3/uL 0.03-0.39 BASO x10^3 (test code = 704-7) 0.07 10*3/uL 0.01-0.07 Lab Interpretation (test code = 28648-1) Abnormal [facility] METABOLIC PANEL (NA, K, CL, CO2, GLUCOSE, BUN, CREATININE, CA)2023-01-03 12:46:52* Test Item Value Reference Range Interpretation Comme nts NA (test code = 3122206658) 134 mmol/L 135-145 L K (test code = 7361286575) 3.7 mmol/L 3.5-5.0 Slight hemolysis CL (test code = 2637990275) 103 mmol/L 98-108 CO2 TOTAL (test code = 5858967201) 26 mmol/L 23-31 AGAP (test code = 7729465387) 5 2-16 BUN (test code = 0318555273) 8 mg/dL 7-23 Slight hemolysis GLUCOSE (test code = 0791497568) 98 mg/dL 70-110 CREATININE (test code = 3498036530) 0.42 mg/dL 0.50-1.04 L CALCIUM (test code = 3029309864) 8.2 mg/dL 8.6-10.6 L eGFR (test code = 00614-1) 125.4 mL/min/1.73m2 CKD-EPI eGFR (2020). Assuming creatinine has been stable day-to-day for at least three months, the eGFR indicates Category G1 (>= 90 mL/min/1.73 m2) Lab Interpretation (test code = 09669-3) [facility] Test Item Value Reference Range Interpretation Comme nts MAGNESIUM (test code = 7650003927) 2.1 mg/dL 1.7-2.4 Lab Interpretation (test cod e = 19955-2) Normal [facility] WITH KIJC5018-30-28 12:29:00* Test Item Value Reference Range Interpretation [...] 32.9 g/dL 31.6-35.1 RDW-SD (test code = 65409-9) 45.4 fL 39.0-49.9 RDW-CV (test code = 788-0) 14.5 % 12.0-15.5 PLT (test code = 777-3) 955 See_Comment H [Automated messa ge] The system which generated this result transmitted reference range: 166 - 358 10*3/?L. The reference range was not used to interpret this result as normal/abnormal. MPV (test code = 41281-8) 8.7 fL 9.5-12.9 L NRBC/100 WBC (test code = 9897135814) 0.3 See_Comment [Automated [place] ssage] The system which generated this result transmitted reference range: 0.0 - 10.0 /100 WBCs. The reference range was not used to interpret this result as normal/abnormal. NRBC x10^3 (test code = 2966911322) 0.04 See_Comment [Automated messa ge] The system which generated this result transmitted reference range: 10*3/?L. The reference range was not used to interpret this result as normal/abnormal. GRAN MAT (NEUT) % (test code = 770-8) 71.1 % IMM GRAN % (test code = 7603671912) 4.30 % LYMPH % (test code = 736-9) 12.9 % MONO % (test code = 5905-5) 9.3 % EOS % (test code = 713-8) 1.8 % BASO % (test code = 706-2) 0.6 % GRAN MAT x10^3(ANC) (test code = 4581578154) 8.52 10*3/uL 1.88-7.09 H IMM GRAN x10^3 (test code = 1180824232) 0.52 10*3/uL 0.00-0.06 H LYMPH x10^3 (test code = 731-0) 1.55 10*3/uL 1.32-3.29 MONO x10^3 (test code = 742-7) 1.11 10*3/uL 0.33-0.92 H EOS x10^3 (test code = 711-2) 0.21 10*3/uL 0.03-0.39 BASO x10^3 (test code = 704-7) 0.07 10*3/uL 0.01-0.07 BANDS (test code = 7417079874) Increased A Lab Interpretation (test code = 13648-8) Abnormal [facility] WITH [id number] 15:54:24* Test Item Value Reference Range Interpretation [...] 32.8 g/dL 31.6-35.1 RDW-SD (test code = 38410-9) 45.7 fL 39.0-49.9 RDW-CV (test code = 788-0) 14.3 % 12.0-15.5 PLT (test code = 777-3) 1184 See_Comment HH [Automated messa ge] The system which generated this result transmitted reference range: 166 - 358 10*3/?L. The reference range was not used to interpret this result as normal/abnormal. MPV (test code = 15579-1) 9.0 fL 9.5-12.9 L NRBC/100 WBC (test code = 3201453502) 0.0 See_Comment [Automated me ssage] The system which generated this result transmitted reference range: 0.0 - 10.0 /100 WBCs. The reference range was not used to interpret this result as normal/abnormal. NRBC x10^3 (test code = 2439142089) See_Comment [Automated messa ge] The system which generated this result transmitted reference range: 10*3/?L. The reference range was not used to interpret this result as normal/abnormal. GRAN MAT (NEUT) % (test code = 770-8) 67.7 % IMM GRAN % (test code = 9508949618) 3.10 % LYMPH % (test code = 736-9) 17.3 % MONO % (test code = 5905-5) 9.1 % EOS % (test code = 713-8) 2.0 % BASO % (test code = 706-2) 0.8 % GRAN MAT x10^3(ANC) (test code = 5036794431) 8.00 10*3/uL 1.88-7.09 H IMM GRAN x10^3 (test code = 1547034623) 0.37 10*3/uL 0.00-0.06 H LYMPH x10^3 (test code = 731-0) 2.04 10*3/uL 1.32-3.29 MONO x10^3 (test code = 742-7) 1.07 10*3/uL 0.33-0.92 H EOS x10^3 (test code = 711-2) 0.24 10*3/uL 0.03-0.39 BASO x10^3 (test code = 704-7) 0.09 10*3/uL 0.01-0.07 H BANDS (test code = 7510946826) Increased A Lab Interpretation (test code = 78813-3) Abnormal [facility] METABOLIC PANEL (NA, K, CL, CO2, GLUCOSE, BUN, CREATININE, CA)2023-01-02 15:30:59* Test Item Value Reference Range Interpretation Comme nts NA (test code = 7780968396) 136 mmol/L 135-145 K (test code = 6409394213) 3.8 mmol/L 3.5-5.0 CL (test code = 2891296242) 103 mmol/L 98-108 CO2 TOTAL (test code = 8364228085) 22 mmol/L 23-31 L AGAP (test code = 7887484992) 11 2-16 BUN (test code = 9803419125) 7 mg/dL 7-23 GLUCOSE (test code = 2173392481) 93 mg/dL 70-110 CREATININE (test code = 9658915512) 0.38 mg/dL 0.50-1.04 L CALCIUM (test code = 5469129054) 8.4 mg/dL 8.6-10.6 L eGFR (test code = 01220-1) 128.5 mL/min/1.73m2 CKD-EPI eGFR (2020). Assuming creatinine has been stable day-to-day for at least three months, the eGFR indicates Category G1 (>= 90 mL/min/1.73 m2) Lab Interpretation (test code = 47501-7) Abnormal [facility] METABOLIC PANEL (NA, K, CL, CO2, GLUCOSE, BUN, CREATININE, CA)2022-12-31 14:56:03* Test Item Value Reference Range Interpretation Comme nts NA (test code = 4294567170) 135 mmol/L 135-145 K (test code = 0832886282) 3.9 mmol/L 3.5-5.0 CL (test code = 9775484165) 100 mmol/L 98-108 CO2 TOTAL (test code = 6860373519) 28 mmol/L 23-31 AGAP (test code = 1078511847) 7 2-16 BUN (test code = 8342179379) 13 mg/dL 7-23 GLUCOSE (test code = 0395774261) 84 mg/dL 70-110 CREATININE (test code = 5629209401) 0.48 mg/dL 0.50-1.04 L CALCIUM (test code = 8090211148) 8.3 mg/dL 8.6-10.6 L eGFR (test code = 40976-3) 121.5 mL/min/1.73m2 CKD-EPI eGFR (2020). Assuming creatinine has been stable day-to-day for at least three months, the eGFR indicates Category G1 (>= 90 mL/min/1.73 m2) Lab Interpretation (test code = 91521-4) Abnormal [facility] WITH [id number] 14:46:54* Test Item Value Reference Range Interpretation [...] 32.7 g/dL 31.6-35.1 RDW-SD (test code = 20299-6) 46.0 fL 39.0-49.9 RDW-CV (test code = 788-0) 14.5 % 12.0-15.5 PLT (test code = 777-3) 1139 See_Comment HH [Automated message] The system which generated this result transmitted reference range: 166 - 358 10*3/?L. The reference range was not used to interpret this result as normal/abnormal. MPV (test code = 71945-1) 9.3 fL 9.5-12.9 L NRBC/100 WBC (test code = 0846883075) 0.0 See_Comment [Automated message] The system which generated this result transmitted reference range: 0.0 - 10.0 /100 WBCs. The reference range was not used to interpret this result as normal/abnormal. NRBC x10^3 (test code = 0399126660) See_Comment [Automated message] The system which generated this result transmitted reference range: 10*3/?L. The reference range was not used to interpret this result as normal/abnormal. GRAN MAT (NEUT) % (test code = 770-8) 67.1 % IMM GRAN % (test code = 6412588746) 3.10 % LYMPH % (test code = 736-9) 17.3 % MONO % (test code = 5905-5) 10.1 % EOS % (test code = 713-8) 1.6 % BASO % (test code = 706-2) 0.8 % GRAN MAT x10^3(ANC) (test code = 7658936148) 8.21 10*3/uL 1.88-7.09 H IMM GRAN x10^3 (test code = 6097694990) 0.38 10*3/uL 0.00-0.06 H LYMPH x10^3 (test code = 731-0) 2.12 10*3/uL 1.32-3.29 MONO x10^3 (test code = 742-7) 1.23 10*3/uL 0.33-0.92 H EOS x10^3 (test code = 711-2) 0.19 10*3/uL 0.03-0.39 BASO x10^3 (test code = 704-7) 0.10 10*3/uL 0.01-0.07 H POLYCHROMASIA (test code = 59346-6) 2+ See_Comment [Automated message] The system which generated this result transmitted reference range: 2+. The reference range was not used to interpret this result as normal/abnormal. BANDS (test code = 6025272626) MARKED INCREASED A DOHLE BODIES (test code = 7792-5) Present A Lab Interpretation (test code = 90251-8) Abnormal [facility] WITH [id number] 12:12:04* Test Item Value Reference Range Interpretation Comme nts WBC (test code = 6690-2) 10.90 See_Comment [Automated [employer] ge] The system which generated this result [...] 32.5 g/dL 31.6-35.1 RDW-SD (test code = 28861-0) 46.2 fL 39.0-49.9 RDW-CV (test code = 788-0) 14.4 % 12.0-15.5 PLT (test code = 777-3) 1123 See_Comment HH [Automated messa ge] The system which generated this result transmitted reference range: 166 - 358 10*3/?L. The reference range was not used to interpret this result as normal/abnormal. MPV (test code = 60268-8) 9.7 fL 9.5-12.9 NRBC/100 WBC (test code = 2716341700) 0.0 See_Comment [Automated me ssage] The system which generated this result transmitted reference range: 0.0 - 10.0 /100 WBCs. The reference range was not used to interpret this result as normal/abnormal. NRBC x10^3 (test code = 8817622272) See_Comment [Automated messa ge] The system which generated this result transmitted reference range: 10*3/?L. The reference range was not used to interpret this result as normal/abnormal. GRAN MAT (NEUT) % (test code = 770-8) 68.5 % IMM GRAN % (test code = 4012631214) 2.80 % LYMPH % (test code = 736-9) 17.5 % MONO % (test code = 5905-5) 9.6 % EOS % (test code = 713-8) 1.1 % BASO % (test code = 706-2) 0.5 % GRAN MAT x10^3(ANC) (test code = 6494650633) 7.47 10*3/uL 1.88-7.09 H IMM GRAN x10^3 (test code = 2985561666) 0.30 10*3/uL 0.00-0.06 H LYMPH x10^3 (test code = 731-0) 1.91 10*3/uL 1.32-3.29 MONO x10^3 (test code = 742-7) 1.05 10*3/uL 0.33-0.92 H EOS x10^3 (test code = 711-2) 0.12 10*3/uL 0.03-0.39 BASO x10^3 (test code = 704-7) 0.05 10*3/uL 0.01-0.07 BANDS (test code = 1047590647) Increased A Lab Interpretation (test code = 51941-2) Abnormal [facility] METABOLIC PANEL (NA, K, CL, CO2, GLUCOSE, BUN, CREATININE, CA)2022-12-30 12:04:55* Test Item Value Reference Range Interpretation Comme nts NA (test code = 9306693818) 134 mmol/L 135-145 L K (test code = 2417965154) 4.2 mmol/L 3.5-5.0 CL (test code = 2725017224) 101 mmol/L 98-108 CO2 TOTAL (test code = 8741712329) 27 mmol/L 23-31 AGAP (test code = 2660811810) 6 2-16 BUN (test code = 9817449948) 12 mg/dL 7-23 GLUCOSE (test code = 9625963725) 109 mg/dL 70-110 CREATININE (test code = 3538202287) 0.37 mg/dL 0.50-1.04 L CALCIUM (test code = 0568742885) 8.1 mg/dL 8.6-10.6 L eGFR (test code = 59610-4) 129.3 mL/min/1.73m2 CKD-EPI eGFR (2020). Assuming creatinine has been stable day-to-day for at least three months, the eGFR indicates Category G1 (>= 90 mL/min/1.73 m2) Lab Interpretation (test code = 67598-8) [facility]* Test Item Value Reference Range Interpretation Comme nts MAGNESIUM (test code = 2017807031) 2.0 mg/dL 1.7-2.4 Lab Interpretation (test cod e = 28044-7) [facility] 12:04:55* Test Item Value Reference Range Interpretation Comme nts PHOSPHORUS (test code = 0832308195) 3.8 mg/dL 2.5-5.0 Lab Interpretation (test cod e = 18889-6) [facility] [id number] 12:52:34* Test Item Value Reference Range Interpretation [...] 32.8 g/dL 31.6-35.1 RDW-SD (test code = 40421-1) 46.6 fL 39.0-49.9 RDW-CV (test code = 788-0) 14.5 % 12.0-15.5 PLT (test code = 777-3) 920 See_Comment H [Automated messa ge] The system which generated this result transmitted reference range: 166 - 358 10*3/?L. The reference range was not used to interpret this result as normal/abnormal. MPV (test code = 53422-6) 9.9 fL 9.5-12.9 IPF % (test code = 4629338689) 3.6 % 1.3-7.7 Platelet count measured by fluorescence method. NRBC/100 WBC (test code = 8270231630) 0.0 See_Comment [Automated me ssage] The system which generated this result transmitted reference range: 0.0 - 10.0 /100 WBCs. The reference range was not used to interpret this result as normal/abnormal. NRBC x10^3 (test code = 2302155220) See_Comment [Automated messa ge] The system which generated this result transmitted reference range: 10*3/?L. The reference range was not used to interpret this result as normal/abnormal. GRAN MAT (NEUT) % (test code = 770-8) 75.3 % IMM GRAN % (test code = 0037250400) 2.40 % LYMPH % (test code = 736-9) 12.0 % MONO % (test code = 5905-5) 9.0 % EOS % (test code = 713-8) 0.9 % BASO % (test code = 706-2) 0.4 % GRAN MAT x10^3(ANC) (test code = 9431471639) 9.47 10*3/uL 1.88-7.09 H IMM GRAN x10^3 (test code = 0591293313) 0.30 10*3/uL 0.00-0.06 H LYMPH x10^3 (test code = 731-0) 1.51 10*3/uL 1.32-3.29 MONO x10^3 (test code = 742-7) 1.13 10*3/uL 0.33-0.92 H EOS x10^3 (test code = 711-2) 0.11 10*3/uL 0.03-0.39 BASO x10^3 (test code = 704-7) 0.05 10*3/uL 0.01-0.07 BANDS (test code = 1893132642) Increased A REACT LYMPHS (test code = 0532642692) Rare GIANT PLATELETS (test code = 5908-9) Present See_Comment A [Automated messa ge] The system which generated this result transmitted reference range: (none). The reference range was not used to interpret this result as normal/abnormal. Lab Interpretation (test code = 60186-0) [facility] 12:46:50* Test Item Value Reference Range Interpretation Comme nts PHOSPHORUS (test code = 4461817972) 4.6 mg/dL 2.5-5.0 Lab Interpretation (test cod e = 20758-1) [facility] (NA, K, CL, CO2, GLUCOSE, BUN, CREATININE, CA)2022-12-29 12:46:49* Test Item Value Reference Range Interpretation Comme nts NA (test code = 5340570156) 134 mmol/L 135-145 L K (test code = 6205514845) 3.9 mmol/L 3.5-5.0 Slight hemolysis CL (test code = 7276208014) 103 mmol/L 98-108 CO2 TOTAL (test code = 2187308108) 24 mmol/L 23-31 AGAP (test code = 1176494863) 7 2-16 BUN (test code = 8127214145) 10 mg/dL 7-23 Slight hemolysis GLUCOSE (test code = 2083770156) 121 mg/dL 70-110 H CREATININE (test code = 3603299883) 0.29 mg/dL 0.50-1.04 L CALCIUM (test code = 4860122878) 7.5 mg/dL 8.6-10.6 L eGFR (test code = 09200-2) 137.1 mL/min/1.73m2 CKD-EPI eGFR (2020). Assuming creatinine has been stable day-to-day for at least three months, the eGFR indicates Category G1 (>= 90 mL/min/1.73 m2) Lab Interpretation (test code = 63758-7) [facility] 12:46:49* Test Item Value Reference Range Interpretation Comme nts MAGNESIUM (test code = 8488721719) 1.9 mg/dL 1.7-2.4 Lab Interpretation (test cod e = 52518-3) [facility] RBC (in units), 1 Units 2022-12-27 16:03:01* Test Item Value Reference Range Interpretation Comme nts Cross Match Result (test code = 4409) Compatible ISBT Blood Type Code (test code = 457034) 6200 Unit Blood Type (test code = 4410) A Pos Unit Number (test code = 4411) [id number] Blood Expiration Date & Time (test code = 017071) 261407720938 Status Information (test code = 4412) Issued Product Identification (test code = 4413) Red Blood Cells Product Code (test code = 4414) [id number] Performed at [facility] Laboratory [facility] Blood [address] [place] [address] Free: [phone] No. [id number] [facility] Packed RBC (in units), 1 Units 2022-12-27 16:03:01* Test Item Value Reference Range Interpretation Comme nts Cross Match Result (test code = 4409) Compatible ISBT Blood Type Code (test code = 212797) 6200 Unit Blood Type (test code = 4410) A Pos Unit Number (test code = 4411) [id number] Blood Expiration Date & Time (test code = 441661) 757679418283 Status Information (test code = 4412) Issued Product Identification (test code = 4413) Red Blood Cells Product Code (test code = 4414) [id number] Performed at [facility] Blood [address] Free: [phone] No. [id number] [facility] GLUCOSE (AUTOMATED)2022-12-27 13:20:08* Test Item Value Reference Range Interpretation Comme nts POCT GLU (test code = 0294595655) 116 mg/dL 70-110 H Lab Interpretation (test cod e = 22247-0) Abnormal [facility] GLUCOSE (AUTOMATED)2022-12-27 13:20:08* Test Item Value Reference Range Interpretation Comme nts POCT GLU (test code = 3800546445) 116 mg/dL 70-110 H Lab Interpretation (test cod e = 82382-1) Abnormal [facility] GLUCOSE (AUTOMATED)2022-12-26 23:31:11* Test Item Value Reference Range Interpretation Comme nts POCT GLU (test code = 5302344879) 112 mg/dL 70-110 H Lab Interpretation (test cod e = 03057-1) Abnormal [facility] GLUCOSE (AUTOMATED)2022-12-26 16:13:21* Test Item Value Reference Range Interpretation Comme nts POCT GLU (test code = 0274021495) 112 mg/dL 70-110 H Lab Interpretation (test cod e = 01798-1) [facility]normal [facility] [id number] 15:49:35* Test Item Value Reference Range Interpretation Comme nts Blood Culture-Aerobic (test code = 89178-6) Culture positive. See Blood Culture Workup for additional information. No growth AA Previous preliminary verified result was Culture In Progress on 12/18/2022 at 1801 CSTThis is a corrected result. ?Previous result was No organisms isolated on 12/21/2022 at 0919 [employer] Blood Culture-Anaerobic (test code = 97820-4) Culture positive. See Blood Culture Workup for additional information. No growth AA Previous preliminary verified result was Culture In Progress on 12/18/2022 at 1801 [employer] IN[employer] Lab Interpretation (test code = 86271-4) Abnormal [facility] GLUCOSE (AUTOMATED)2022-12-26 01:49:16* Test Item Value Reference Range Interpretation Comme nts POCT GLU (test code = 1575202800) 130 mg/dL 70-110 H Lab Interpretation (test cod e = 50867-7) Abnormal [facility] GLUCOSE (AUTOMATED)2022-12-25 14:11:05* Test Item Value Reference Range Interpretation Comme nts POCT GLU (test code = 0240985608) 135 mg/dL 70-110 H Lab Interpretation (test cod e = 77105-5) Abnormal [facility] GLUCOSE (AUTOMATED)2022-12-25 06:09:10* Test Item Value Reference Range Interpretation Comme nts POCT GLU (test code = 2337180306) 120 mg/dL 70-110 H Lab Interpretation (test cod e = 60912-0) Abnormal [facility] GLUCOSE (AUTOMATED)2022-12-24 18:26:20* Test Item Value Reference Range Interpretation Comme nts POCT GLU (test code = 2011666375) 135 mg/dL 70-110 H Lab Interpretation (test cod e = 87728-2) Abnormal [facility] GLUCOSE (AUTOMATED)2022-12-23 22:33:00* Test Item Value Reference Range Interpretation Comme nts POCT GLU (test code = 6511481404) 135 mg/dL 70-110 H Lab Interpretation (test cod e = 75090-9) Abnormal [facility] GLUCOSE (AUTOMATED)2022-12-23 07:09:56* Test Item Value Reference Range Interpretation Comme nts POCT GLU (test code = 8668432671) 125 mg/dL 70-110 H Lab Interpretation (test cod e = 64937-2) [facility] [id number] 21:53:44* Test Item Value Reference Range Interpretation Comme nts Case Report (test code = 6754990633) Surgical Pathology ?Case: [id number] ? Authorizing Provider: ?Berlin Sow MD ? Collected: ? 12/18/2022 1626 ?Ordering Location: ? ? [facility] ? ? ?Received: ?12/18/2022 191 ? [facility] ?Pathologist: ? Lindsay Paula MD ? Specimen: ? ?SMALL INTESTINE ? Final Diagnosis (test code = 6212767682) c8psgANtXYOyz7ahVJMjhZ FuZzEwMzNcZnRuYmpcdWMx NThnpdExQElwnZghJQO2ML ApMC6gtErajEt6uPrxDQSx igF0eTFnVFkya7raCDI1p7 ltgvfgGWKgYRrgLi6uyLQx cNumMeGvEDCuJJx7eO46YG RepN4kaJFlIVb7OSQhiESq wkEvKzJcGFGcsWYllBL4LR PsHP8nglhdSFobYOkiVILk hvX0VWCyfQEsJ9MdHEJcRA 6hwfdzFOI3WKuuACXwRUN0 LfEhKPMga1Qinwm0CkLosC FyZFxwbGFpblxmczIwXHBh ciBBLiBTTUFMTCBJTlRFU1 RICjQrPXZGP81WRlKRYRDE XOOMA8ZVW016ZEBeekKoOL QvNP3bQ4PIJKGGOSWIMbPL DCNWSSCBOzZYX7VAGkZwA0 vJJJVZTvNWU72FKwLBQWZZ RkVDVCBBTkQgQUNVVEUgU0 VJD5FWLZfPCBliQQBiNZJb BUGvNFSWD6IMDWoBWvOOHO AIUV6LMNTJEHRDBDGQPWEc AMZpodbuEWQpAUKqCB9ijD 4gQWJkdWxqYWJiYXIgSGFz YI4oSR7AXHCaZN7oNC0qIT JuHLP6BeZ9VJFCZWUiiqdu BCH0o8znxKRzYTMkrQBfOe VuUXXyWTLsq7ysEHNuaRZr ZzEwMzNcZnRuYmpcdWMxXG UzKjSuq9ixy288mQTxw8li KALoClJ9mTOfWHGblBoeix x0xXkpGtMsSYOks9qkpcNm ZmNoYXJzZXQwIEFyaWFsO3 50RRFuLSfle3shn3CgRLUx gDSes0O0XZZLFDzqLlMwO7 67l2kvi6wkmyHymLY0CFKe AUD5MGnqhcBpljI6PJztiR JoWqM7ETratpYrMLdebmEh cqBuBun8NJAqF727UOL7nO ine1esMAW1CYPfGKSqFkzk Ay3hsTIxO764JWAvBKFGVQ RpvCv0CVKykbFeahBsyGAQ l894R317t7ebDSPurtJzhJ jOjcdgp9zkW599GYBwwYWj znUcRlUzOXNleERchVM9EB SuHY3xyiuxFLglCXcqWVId jyN7ZHStxNBwC7KrTIDqQZ 0zpbkbMDC1IGiqGPBgKQZ6 OdYbETPbp5Vqmyy1UzWlie 2dkx54NMZ0b4UkcRmgNDD7 EYI7IyMxBf2cyBSzEGLnVX 0dPyAkjBYnMTEuye73zNfv XTvzhoRejC6tIgTdMVLmvS PeVKCjBL2qaSCwGEJrgL9u cmxjXHBnYnJkcmhlYWRccG efaxDoEf5upYuhJJR0JJcj S1rrqD0zCdU9KUofK2jkhO 4mGDe0VEsfgBF0QSUtjP8m FC9gxpvzm7ikZBboLZkyCQ OjlbJ3vhS7DGTuvFBiC9Fi gQ8cKVHbBO0tuluyf1iwDD F0ZHyqAPMkIJZ5IgIsXGEk t1Ifsrs7VyLci2ShrDSnIM dnG96mt084IZErseCcH0ao bGFpblxwbGFpblxmMFxmcz L7UWGfEAExHYymAKOqCVDr MjBcbGFuZzEwMzNcaGljaF bsDBclIhEcWPRsBUfnM0hw TjZnS0BnFDMuHrUpsRYaTJ eyhNQ4DKUvRZCrp34zjEt3 OPZoquypt0SmIXDtrCJmmH MixA4bfeOdv6qpWPAeJLGf UNPkM1EmLPA7aBDvTKQngF XmxVO4AD1wgkQmEL5oZLFs YnkgcmVzaWRlbnRzLCBmZW lwd7ywFN6eJMPcgXxjyW2a eLS9AFHut4wxmCGslZHxs3 lht1ZhkzZkORhkARFlDJpv LAMtRAAfTM1pVIMcpPGccr Fxv7K0WocpfXXypepcRtds coN5LGxcszvvDBKeWQugB8 cqVcPhJDAozFsgUjmdi1Rm XGYyXGZzMjhccGFyfX0= Clinical Information (test code = 8180487684) ABDOMINAL PAIN Gross Description (test code = 6590414610) i8ecsMNnLWVulOZkUMMnZ9 txsrUaLYSkmDYdO4Nxmwjk QYueVZ3bLJ3qwOjnkINduL GxKDAvTnZzk0olx250nDMi h8onIVQFoxyjuQj1cGzwW9 3fk8V3SuqxC99reRZfMBN7 CEPbNUGqsTFpEWLgCEN7FF SyiLQcS5hnQECvAA8zoxbj KPjxRHnqSRDwbOM8JFIelP EgI0NjOHQaMLgzYZEvgbe8 SlGkCr5hoZFmbMjiYLenGh lunUhux1RibFWnHYjfQKBr MMUuLQvaEPOoT2CCZOEeCP AjHFB0KNNsNSBHAVHfGDw9 MTMzIEVQVCAiICBaNTAyNT IxNSIgTFJSIDgwMDAwMDAw MDAgXFxuaCBcXHQgMSBcXG YoPGibfkH1z0trFPVvjTKx KYI4EXchqIMyPXLvARYaHJ cgWoXVWpLeTzFmZYR6QBQ4 RdLuJCu4JQtgO4GIHPUxZW Q3KyW6RLq6YuL9IXp2EKBA Xj8aCEi7YPW5UYX9ErG6IT f5HXAjKBAoYiDeCEDlUEYw NPafaAFaXA1zzHvvHEXvFZ LfZLerTHZjEzVdC5WKO9wI VJ5aJFsaWETmpWDeJOxgNi FxVIPkeYYPe1JmYYfmwCQw blxmczIyIFNwZWNpbWVuIE LtnFDaycMqJXd5IMTinK0q Wk0jeFNpwV8diVAhWGksGP Adx7l1jMV7mCKphEC2pBMq uFgoYtMwLQ0hjQIbIIBLAX 51bWJlciBgYCBzbWFsbCBp wiDkf5BgtrEdT6A5DTsqVT EdzjHdI61pt0xzdYVlf5Oy HCKboA0ckIAtmQ7dxtazal WhVLTayNNmySXli9dtwNVo TBqgGH49KMt1ZtZoS22enG 2lgIDiU2DcWYQ0ZLLeLPRh bSBpbiBkaWFtZXRlcikuIC REpXJiq7Zar9GxKSufLG9i cmthYmxlIGZvciBhdHRhY2 rsPVO1IUrsk2kdX0JtJO9d DSl9DMX0mULpAK0znXBgxU FsLiAgVGhlcmUgaXMgYSB0 bcGrt868bnQaOTEoZqQgvP FbOB85LGWqTCqxKCsoSRO9 VPH9VKWatKTlm0zgxgcvMR GrVWSbjDIbqg7kTPTsW6ff d4WcxUaeXYZhVPUcF9Euw3 5ucPVwQ7peBMFaLBPpXMQc H76oCMVglK8es4fenOX1hn Axz795lhPdUWOrUqRrvBxd Nz14EHIoYUSwq46jBNBtiV WviPLclIPbWV4cjmbpzg0b BVDtGKFhlHPamD7eygHflc RxyTRiYNWdiN8vblJ0MAFc RYBidBV6EX16QZg0hBHuYQ ufsOdgx5AtdzCekINxhL88 BIutRQHoXS1aiTIgvJSsEw JxUXzdKH84K30dSSWafQFr o8BpGSjtHbT9mJKxKEQrTC L2vxVrrzYzSX5wokJzYXmh YyBhbmQgdGhlIHJlbWFpbm joNxFyuGVqj2ImgRTghQSt IJyyqNkjloCqajJasP7jJX 1hcmthYmxlLiAgUmVwcmVz OH27XSXvebOyh8CmjMqvru MnAVSpMKP9Lj8qsXZpSMKk koRJGW6DOR1yzGJpEUHkaj AheKZaUKVwC9Tpr56xT80y ZTpccGFyIEExLUEyOiBCb3 NtUKCop3PiSV13UOQcsoHy OTC7cH3gED2nxdsttkprJG 0sErSmITexAJ78lULlxNkm cGFyIEEzOiBSZXByZXNlbn GvlMd9MNIfHcDyt8CvALAe MsTavSDtnPIuHYG4QbBGWM MiMAFjkvJamWp6LMGkXtZc aPDob8DpkMOaYWIwmaKKqV rkIVPIW3bztMJcNAxuZDKT DPfHH4EPLHahZHGxp7CtOQ sneYczMQNbOlI7WNKizPCn NAO0MU5dlGbmARTyB1QyS2 XkzgC0PLWwsl8= Disclaimer (test code = [id number]) y9qmbPJvOCBdr3wkWLIyiE FuZzEwMzNcZnRuYmpcdWMx ISfafxMrZPrwo1RcX7SnJe AwMFxhbnNpXGRlZmxhbmcx LEYsSWE0zxIuHOJkTKbvIU LaZTtfKj0wwFHwaNvvAaPk MZVxy9ddxvAWBArbWiFaY2 63QFQqDAegc4exz2PuZJCe qUDuv1W7HCZUpghmhWv1lU hmO76yk9S4ZniyS0dzKLUg APDrP4ZlTP7vTPYjWxv3RH Q1RWP7TUYuWZPgB3MpGB0g FZUdvJBsHQa3s0zotIzrBG CcIIT8b0uuMAkvyfYjYG5z rx8pzGn9n8sktxVaNWBgFY YfuGISRGRbM2VlcUssOw1c bFd8iFghSszhGIK2Ivy5DW 9njw34asa3tDlpMJWxgfkp QiS5LIvnRLWkozqjPLx7TX fwWCLdzLF4LCWbzOZpH3Bi PEVnOA3binr8VIA4MUkpSB OvIdI2NLKqbIZyLMUqtVys HCjoc804DMK0EuAwVI4gK7 Xyr0E6mS1ceXYlGSXlbLKc WuXaERPdqf9rvRBpDVauq6 DpKVP9egF7jONssSUsNKXb KY24Qihmg4LaAakie7UcA3 2ekHM1MCdap0qsWC8tWjP6 lnXwTWsbc8nuzZ8zDdU7BH oaZA7qHL4vQDYpaE6krrfh XHBnYnJkcmhlYWRccGdicm InJz0ikApeEKG9ABwfI5tb vJ8xXjH4NRnkL1ftjM0vPK p7RPsuqQQ3FNFrlC8pXA1a rklmq3akEQzkZUelJQSbsx K7kdV5QQTopTCwP1ZygU1y TMArJA0dkbkfz7jvNVJ9ZT ryUYMdLGS0WuYxLBKzz8Bh xah2GlRpi6NxfCXjPHoaM0 0it899RGLyytJlN2slpQUk qohmrWLumekePPprwyC7KZ VrbrJli8YmBKIdYBJ2LNcd GLoanJPvHGMkuDjex0qwJ0 RscGFyXHBsYWluXGYxXGZz MjBcbGFuZzEwMzNcaGljaF edUGzcKfYmEUQaHEjnJ1fu FdQsZ8EuPAZoOeDhkCPjE4 ggVGhpcyByZXBvcnQgbWF5 OFuuJ8k4JOLrrrKcvPp4kd IoCpRvTJGmUVO9HBfpmNCl ZUYtz9AknpeyuGSmEo2atD GcXCJgwE6yEDHnILXxGCwh IL9loEj0CDCBfVJkpCCdRq XKFBItBM97djWzRWREppug l4O8DGpbUIDow1NmfYPyV2 tgf0YaQWLgq25jHJ0bu9Q6 o4esOXV3XL7qg3BqMLRirQ HqcGQkSPNus2Sahpwte2My IZFmvbNdi2VuKBYmvuIfbZ OsLRHjlmYdbm5ywePlYTUw YPYjN1FptqtgdFlhfpWpTZ Xlot3seaZiDHX9QIPIEDIu QKTbg0BwrM4dzVSMSYF0iC Fvwt1emfOUkZPeHRJyye49 XVEvCU1lL1ezFKDkIFTlni FiyIAhu5GsKBOskBN5lGGh KM4BLsDUp06aVVNtSGLTgz FoVWAphWjdpUP7geM4bH8c IChGREEpLlx+IFRoZSBGRE WkMF9pgoVew3XrqoAxeKhu MBFbkREvs3CkmWIyn5LfaU pzq8XcwCUjuXYsKU5pECLm clxwYXIgVVRNQiBMYWJvcm Y9y2QrMIHoNVCnXNW6zKgj uyd6AHJpcZ2wIQLfN9vmib zlRLugFXYiq0TkmG0opUSJ xBGxg7GhzYTgqNVDvWVgVE 9cqzDiSOrHIXsUFJD9kiOi XMMgd9KaCSxoK2pjK94idF lccHr7jKD3JOF9cL8gOnq+ IFxwYXJccGFyIEFwcHJvcH JhAGVnpLtcurFgZ4HfooAu lZ9xbLCozqElDX3oPO4kP2 Z1aGWiWVIvrrEeg9smQKgg dmUgYmVlbiByZXZpZXdlZC Wez5GaPLpjTOL4TLttyhWj bmNsdWRpbmcgSCZFLCBTcG KsoPGyYMG7GJjmywPtgtUn TB8kpR2mgMzwpO0kkQZraZ T5ragwXQDhERAroNuoXETl AH2bqWtqzT1wXtMhZqLcDW wgYE1kDZTgW1qioKRcGDLc CWOiZ9ikVxSudN1xjSztMH xjZjJcZnMyMFxwYXJccGFy XHBsYWluXGYxXGZzMjBcbG FuZzEwMzNcaGljaFxmMVxk ZlGpLWHyHShdE7nlIhAbJ9 XoJQSyElOhtVFmY2fwVMxl GVR2LBClAZ9ibWYyLP93jP Tvo8rlYMrtsVmfgz5eZ57p zDIxIUojcEvoXHDja42kt7 NtOFUfweAhfd2pMTOdnaB8 pZ3tNCRdgZcjRHFriXKuSU Lpl1KuLArsfVEwtgDeHXzs IKXuKDSnpASrsdP4wdBteg NazpLjVWDnxYzqFTGmb1Zy WKFkLMpts3Gowj8zaRPsMG EmpzYGkCbvcEXrdS2yQ3Hj VHDtEAAmel7bYXOltJ9xQD gsv6ZvnywpFIVtXBUoMUSe yxBegu7vCXNymBGNAV8BHJ ibhDFax7FzkaCwM5lXUVP4 NUQwNjYwMjgxKSBleGNlcH WqAZSrjv22XUCcrX3agXqw LBEhvI9tuU9fcHwicF0gDt FcLsYjPHswCF5uTHGrN2ct gVQdKAYqTJVyS8dpYbCkeQ 9jaFxmMVxjZjJcZnMyMFxw YXJ9fQ== Embedded Images (test code = [id number]) [facility] [id number] 21:53:44* Test Item Value Reference Range Interpretation Comme nts Case Report (test code = [id number]) Surgical Pathology ?Case: [id number] ? Authorizing Provider: ?Berlin Sow MD ? Collected: ? 12/18/2022 1626 ?Ordering Location: ? ? [facility] ? ? ?Received: ?12/18/2022 1917 ? [facility] ?Pathologist: ? Lindsay Paula MD ? Specimen: ? ?SMALL INTESTINE ? Final Diagnosis (test code = [id number]) t5hwsJUxQRWub0ydKDOahX FuZzEwMzNcZnRuYmpcdWMx HFafomYoNYeufVdyZVJ2DH UdUX9nlOgyzUm8uRccOOQa duW7mUVaCRrnd0zsPQH2p2 wfleiwJYQpQHthZj2nwEGi hScjDbUdXQNgUFt1eS87ZP WinW4rrIWvOUr8QRNrzGDf glLdDrIoAKQkuHBrsDH7RR NyHW6krqlaIFoiKIphLSNb hqH4ZJCmuCCjQ1BiCPNwDD 3ddhjgXZG5JTuzNOHkYUU0 LnFaAMGng1Xfsdf1QtDbvB FyZFxwbGFpblxmczIwXHBh ciBBLiBTTUFMTCBJTlRFU1 QRYzRdZCIEQ76ZDfQRRYHL XIQUE1MKG807LBIafqCqUX PcCK9sD4LDQCKNZJTAYfUN OPGYKLIBWiDZF9YKLuPeJ5 vVBKASDrWRX48QObSXLSJI RkVDVCBBTkQgQUNVVEUgU0 GVJ5KLACmRRLmpMXLhUQKs LOQuUZBWQ4YFRNdTLtKVHO GVEN6PSCLWKLSHYBZVYAOz FHBzgosdQEMaBKToMK6joZ 4gQWJkdWxqYWJiYXIgSGFz OM1qPC1YYBRxVR2wCX8qQR XfVUC0AcV3JYBZKHFzhwyz ACB8t4zskRHyNHQqxVCuGs RrXDIjHNXgf0ceFOOobMLn ZzEwMzNcZnRuYmpcdWMxXG QsTeKnj3auc409pUVct3dq VPEkNqD5sISbIIOslSgmkv m2pOszQiUhVEPvu9jdctQj ZmNoYXJzZXQwIEFyaWFsO3 01JTKkUVepv7add1AeUKZg vWDxp5F2OMLDXTrpIqMrS4 68f3etp4luqvLptAR6JVPe AYH1CErahsAcrfQ9BSklbW GhIvJ4RJsblkInVRionqDq xfIsKwp6RVNqA365EEP9oB rhx5fsVMT3TTBfKLErWqic Jy7rdIPkR784ZTMwKJMHXU KfbMt6WXKgjfJhobSngZYE o723A464l8neYRRfkdJrnI zPoglmi6mzI462EALufSYx tmIgMmCsWJTpuXWzqQC0OT ZnIL7jfagtKEjvFVkdYMPz pxL5OUEpgILlG5WgOKOqDF 9kttvcZHF0KCmpQOUfSPC2 YeHuLNEht1Afjqv8WgHtip 7dnj08OQX4s7CabNgaDTH9 JHV4NtDvEx6tdCCaZJCgVU 6uAdCwjAAuNJZarr96uBwl SWppiwLvaT7mOrRwRCAnfQ VxOMYoRH4imQRkHVZgxN5f cmxjXHBnYnJkcmhlYWRccG achqYsAh0dcUgeDMG1WIpa H6stdY5lBnX7RUduL3naeF 4dVOi6NYplxHT7MHSbvN0o NF4arpyha5daJCuuUYmrMX AcaxQ1xhH3FLYmeHEvZ1Ue lN7cEBBwQI8poyucu4uiUH H2NGxoMUSiPYX4HiUzQIWv n9Svccp8GaOiw5TqiIMnML fwE54vs650LYWgcxLaE5gw bGFpblxwbGFpblxmMFxmcz P0SDOdITMeBKduCMTkOAYg MjBcbGFuZzEwMzNcaGljaF guJBksTiWaOFZfSVcrO0hq IfRsI8IcZONtPcBseKDfNH vwpBZ0CFRzROSsn43qcTu4 GDOqskvah9ZvDQRheBXfrQ KimV4pkiFqi1ejUUVuUTWn AHJeB7UjGLH4wFTyPTPrzZ TipLV3DB2ivaYqFE9tFPSm YnkgcmVzaWRlbnRzLCBmZW ehj8hlQU4uCWAshQpgcJ1v zJL2MFIjd4rysLPivBNmm9 qme8WdtaKvMUenWIUwGOpe MYNiMVPbBJ0kAHCikGChzm Tob9B9WynumXKaxxfpKrgz ndS0IWpjypjaQQIyVQqnA1 liLoUaVYJydOanNtxtc3Ov XGYyXGZzMjhccGFyfX0= Clinical Information (test code = 9502000289) ABDOMINAL PAIN Gross Description (test code = 1343749153) s2dedWXnSYGdkUWeYKReX2 tcjbKuNURigJSiM6Mxwabv KFlaOB2qND8hiKputNLziE KdLANfUuTnx2ugu747iZNh b3fmVEWWlihpbCi9jXxfN0 1cc4W3DibpS54atVMtFRI2 JZJsZGStfAWaFAAwTLZ3RG AfxHScB1swCMFxXW5cfzxr JNriSRwiFANecBF5OJDsyK WsR3KkUAHyVQujLAYyyso0 RyTzJg4jbKFodRrwZXruNx uoxRipv0ZmwXEzPHzjOANx JUZvMDnxRBSqA7KOHKKxFO NgRJR9JJDnSUQKPSWjBUw9 MTMzIEVQVCAiICBaNTAyNT IxNSIgTFJSIDgwMDAwMDAw MDAgXFxuaCBcXHQgMSBcXG RwVZyotwF1v3tvCZNihIEs BMO7VOfjbXVaENDpYHYvBB keExTDFuXfBeNwKAS5DMJ8 QnPyONb9BKbzP2YHDJBcQF H7ZzZ8TKr7QrZ9DPy2TMWS Vj1mVLa3OJV8GBI3TiR0ZD w8JTMgVYVqEiTsYVCsIVNc NCfyvZAfPF2ysLarLSIbOP RxYSihOJWsMgDqW1YVA9xV OM7vDDieSYNbeMYcPDthPp NvKBRysRRYm1YvPIcsmPTt blxmczIyIFNwZWNpbWVuIE QxlQQdbiYvKHg3TREpyV0j Oc9jvTCwxX5uuUQzVSrcPK Xod8l1aCB2iEKwxGP9iLWk yAqeAtYaUH0vwMJxSRSZIA 51bWJlciBgYCBzbWFsbCBp orMlf7LnheCvU0J8VEhhMM JkvyTgR79dn7gjfWYfh3Qw DCFfiV8exUBbaE9ppdkppj FdELIrnDDviROom7vfeTEw DBfeJP36JHd3XwXqJ82ngG 0ieHFbT4ZzIKH0KHFhTOWk bSBpbiBkaWFtZXRlcikuIC TWhIOko2Odz9VsNBdaOS0v cmthYmxlIGZvciBhdHRhY2 ylLBC8YIhhi0ouY0LaEY3a YWt0SCP3wYEfKS4wtESclG FsLiAgVGhlcmUgaXMgYSB0 moZph659amFyUPApTgRkbG ZoUH71UHMmJAyqZKdlAMI4 GNS9LTYhsHWtg5uyaqygKN SxBKAlqLBjjm2sOEOiL7pz c1QbeLseATFxMAVsX5Rie8 6peRYkQ0dnSSQbSBDoGFCh T68wUYDqaN9th6uqxIS9hu Lqc791ukXaBTXyNdSwhPfx Mj08ONPcRDWcp93xRTYwyO NdeVRmsIXcEK1tkthvyr7e YLPlSAZcbMRuiS0prcNlvt QphSGjSICclV5gjyV7UEPy YMRfvPP6WE40YEx0jRKnUL zgxPohu4SgyfOeuRKmfR81 EKrpBKZmVH7cmWByrQBlTh CeVPpfRE65I31hUOAbfLXm y2SyAEriJrS3jHEcKATeIQ R4pmTikqMgZR9tsmHiEFwe YyBhbmQgdGhlIHJlbWFpbm qbGqIuxKSme9KbeKWdxAYx YGhzwCeupyBepqEqmP8nHZ 1hcmthYmxlLiAgUmVwcmVz RZ49AITbuyOpc1GsnCgxip KbIBXkGVX1Wb1clNXkIYYi skUBVC7PSR1opUYoDTTvnk HrkEEwDHWkU4Ukf92vR64r ZTpccGFyIEExLUEyOiBCb3 PjELGcz6UqOC59LPNaqzHu KHT4vB0bWZ4qyrwzgaxlUP 1nLaQyUXpdAD04fZQqyMlh cGFyIEEzOiBSZXByZXNlbn ItaOp1WYOvKpLkr2IqOPCa RoAchCEdpKUeWFE8HhIYRT NkEIJjguJrlMg5FLFaCyYw dJQpy1YkkWEhXUEasmDGjP aqBPBUF9rkzYDwAWbxZWSH GMlIS2QPNWmgWSPaq6GnWM adeCetVRAqVaU5BCJxqMMq QTF9RU8fkAzxKEHoG0NkO9 MfthE6YJCjsy9= Disclaimer (test code = [id number]) l8ecpREpMJYcu7bpJFNhgA FuZzEwMzNcZnRuYmpcdWMx BYqmisPrELzgd1NyP0PzBk AwMFxhbnNpXGRlZmxhbmcx SDFeYNA0txLiMOMbMBgxFQ EnRMcrXb1igWFqySsxJjXg CRYvk8dqrpGOGZtzAwUdE8 21MONpLSyam7niz5ZzDWZo uKQez9C9CUKSeoemgNd4fK cdE21qp5N4MixdF0thONCy DWDeG1YiKO5tTTYxTlr6QW C9YWC9AMMuUWVoI2QrCL2y EZDarQViMOd9m9gtyEkfMK IxXZX8p3uwQDbsyuMtMA8t ax2vpFr2r6gjcyZeIIQxNU KyaWSCJQVsS3YrlIalWr4z lWb4kLwxJchpELU4Zlw5VR 3pkx41lie9eMhiAXOwplgw ZwH0RXsbYYGnhxggPCd9XU uvOZXriAK1DTTatTCkF9Uk HRBuZD8ltmu1ZVP1RMrgAW WcZaV1WVOlxLLyIRHuhMmx PPifv094HSP3KnPsYA1mS2 Nzy0K7rE9idMIyQDPkpKPv DyLrWNAdbe7sxRVpOBsuk5 GxLUG5lpY5uLJuoNRnYDZh CH90Mjjvt7WzCbjwb1XbY2 3ffZE6BWwum8mdUM8nJqQ1 ejOqZVkgj1yruL6lUdZ9HA noXT6cFJ6eAZYalX2wavfd XHBnYnJkcmhlYWRccGdicm ZuEy7ehMnlGSY6QEmiZ2bs hL6iWaV6RUmaN1plqR9dXN c9QTbliID1FATvoT4zKZ0n ozxpm4fbWIiiLKonKWPmyl R9kmA9MFQrmMVsQ2IomQ8x SKWoSW6oyceui1oiWSO1GB ysWVUgMEW2JkSxEUXze4Dp pzb1ViZlw4UxeGXnJWjkE5 7wt898VVVgkgHiK1owlBYs iykzyWQjkzogLZsndoA6LR BcldTmr4YkLOEgEGN0HAdc DBompZKjUFGbuHosp2tvD6 RscGFyXHBsYWluXGYxXGZz MjBcbGFuZzEwMzNcaGljaF ggGGbbVkAoBLAsJTzqR7ed XeTlO7LbSAZgLqFmgBBqD0 ggVGhpcyByZXBvcnQgbWF5 DZbiY9v4WFCedpMeiYu6yk IvHpHvIBNdRZU4YVpffIRa SBByv0DrynfswEKsUs8rsQ NrBHMkvI0eTZMtACHyRTof QN2omAu0UVOCtMRnzJAcFt SEUVOpMG86giYjLUHYpgmt h3G3EDbkVMErb8ZwyFLfH6 slz9SmLVIny31vAL5in5U0 l1fxISA6MD2nf1CyAUJvfJ ZhuNFcUHMvi4Npdrvgs6Ae XMQxfsOwv4ZeIYLsamWmlI DjWSFnykXqxq0ztnKyGUZo ZVYwI1MlvsswgRgusgBqYD Mrrd6fbeFeXUU8SXFTTVEj MXZxg1XicS7lbVOXPDS4xF Mgcp0btsUEyCIeWFClyc27 UCZrUM5lG2bhEDApJLYyku VvaYKub4YlIMUirPE1vIWn LF7HDzYRn95aHVAyECTUfl AoFHXvtAzkeOM2tdM0lH7h IChGREEpLlx+IFRoZSBGRE UyOQ9lodIwf1DwduLjgIzu LGVtaEDqc9WhfSIgs3TiiU mik2IwvQAtlZBeHS3xRPDu clxwYXIgVVRNQiBMYWJvcm Y6l8GtJPKxLKLaKAG6xXpc gkc8WRXpaF0hPFFmL6dzfw kyKTboQJCrl3GibA4naGGN lRSjr6HwnFDxrDYSyMFdSW 6xkqXjBVuLSDzQTSU4utQp UVVsi5GqJNlgS8wwY33ddB aarEj1cCF6OBF7tZ7dYte+ IFxwYXJccGFyIEFwcHJvcH RnEXMawCjgehPzL6MzjhDf xD8bcZYbydAlLE1kPI6iB4 V7dUDrYLNkvuKws1shAJce dmUgYmVlbiByZXZpZXdlZC Qli6NiVEplTZL1VPghvlQm bmNsdWRpbmcgSCZFLCBTcG RdnPKtXLX0CHcnxzSfrlTy NN7chB5baTlxnW5yqRJppI U5upkgATSgLNIgeEltEKDz WD5wqMttpU5vCbYyAuGnGD zdYA3eUYRrG8vqcKWkRFRr NPUbQ3neToBrdI7ahVluCT xjZjJcZnMyMFxwYXJccGFy XHBsYWluXGYxXGZzMjBcbG FuZzEwMzNcaGljaFxmMVxk VzJjWKAoPHmgA6fzJpOwN6 XlPRXeEoMlgPIzZ6yrAYlq AQH7FYDqYA2iaUAlGE32sA Kvr5ogZTsjsJoiwr2tV06g zJVlEGfpxUstYUQvf53en7 BqZVXaosBzdg3lNZQtjyK4 yG5bJAXupVmfNWOzdKUhFT Szo9XjETglmZVvafRaHXyl EWPtQWHbmFOzooS9qgMzhx TucqQyKNZxvRpvEGSmz8Ih MJXiHMhtp2Jwtk3mdNAwTS SoicFUsSxpaHZwfA5yC3Le CKStPKKhzh4bWBLzgF1fDA fus2UgfvjzUSYiUHOdSVJm tnCtmh1cVWGrlLKAFG3QOR ehnWQnt5IdowZdA8nARCS6 NUQwNjYwMjgxKSBleGNlcH JnUEVcid64HTOkjL5gtGho ELMhbD1ndW7kpHywbB1qAa McLrEfEClcWW9hQECoH0bo qTUxJQHjXHGuD8inKmWvmU 9jaFxmMVxjZjJcZnMyMFxw YXJ9fQ== Embedded Images (test code = [id number]) [facility] GLUCOSE (AUTOMATED)2022-12-22 14:05:38* Test Item Value Reference Range Interpretation Comme [facility] POCT GLU (test code = 9953618570) 127 mg/dL 70-110 H Lab Interpretation (test cod e = 14656-5) Abnormal [facility] GLUCOSE (AUTOMATED)2022-12-22 13:24:47* Test Item Value Reference Range Interpretation Comme [facility] POCT GLU (test code = 9591901406) 134 mg/dL 70-110 H Lab Interpretation (test cod e = 95983-3) [facility] 1 Units 2022-12-21 18:23:21* Test Item Value Reference Range Interpretation Comme [facility] Cross Match Result (test code = 4409) Compatible ISBT Blood Type Code (test code = 947277) 6200 Unit Blood Type (test code = 4410) A Pos Unit Number (test code = 4411) [id number] Blood Expiration Date & Time (test code = 454973) [id number] Status Information (test code = 4412) Issued Product Identification (test code = 4413) Red Blood Cells Product Code (test code = 4414) [id number] Performed at [facility] B Laboratory Services - [facility] Blood [address] [place], [place] [id number] Free: [phone] No. [id number] [facility] [id number] 16:46:23* Test Item Value Reference Range Interpretation Comme [facility] Case Report (test code = 2785981990) Surgical Pathology ?Case: [id number] ? Authorizing Provider: ?Rhona Lau MD ?Collected: ? 12/16/2022 0910 ?Ordering Location: ? ? [facility] ? ? ?Received: ?12/16/2022 1743 ? [facility] ?Pathologist: ? Maryann Lee MD ?Specimen: ? ?UTERUS W/BILATERAL FALLOPIAN TUBES, uterus, cervix, and bilateral fallopian tubes ? ? Final Diagnosis (test code = 0899833772) x5ikrAWxRNViz6glFYJopR FuZzEwMzNcZnRuYmpcdWMx FZzotoIqIIvmdPsgXQU0BQ AcPQ0poGsvfHh3dDssSVRe ikJ4jDXsLNvrx7pwTDS0j1 geglnbESBjUPjwIr7utTPa rLnvJkLeAFWhJQv6qS51DW JjqZ2qtLYhFOn7NBJdmEHk wmGoWfQgVJBorADlyRF5RX ExOS5cetdgYSowDXapYLQn wpQ8PJNreZUdC0TzYZWoHM 2ywkrlPIX1AAorHPPnHXO9 GcKjSIUys8Pciim2LmCccJ FyZFxwbGFpblxmczIwXHBh ciBBLiBVVEVSVVMsIENFUl DGNFRVGeBjYwZBOU5VUAQG IFRVQkVTLCBSSUdIVCBBTk RhAKOYWZctTVVUOZPNM6VT PBbFTWLFSy2NVJGyGWFCDS QSTTUmEX8FTOagOJiZJXIO XZFNY33XFEEQGGXFGTxCZC KWSRaoD3SOCZdRN2HYGW1H HAflGGOsjtNzQBOmDC3jE6 TIOkjLEuQNFtICRWOEE0lR R3eLFRYRBW6YTDAeyXRfTI AgICAgLSBFTkRPTUVUUklV TTogREVDSURVQUxJWkVEIF TXLu4HJKBDR65JQCGCNG2D MVuBZYrjUTxWY3IJJ5MBAX BXP3rTM3BWKgHIRuXJF4Mq jWHnJLGkNKUgKOHIBR8EVU HRDANADrQJKAWAI28BO6FH NzMTWyWxDKGOF28KA64YNV LsaqwguYc2NPfzaL46WBLf ICAgICAtIEZBTExPUElBTi BUVUJFUywgQklMQVRFUkFM WbZGLvYOOZKJW1kGD0qKGA YAAZ5LEELizDVbAMBeyrHt cGFyXGZzMjIgTGluZHNheS MNbOnoGK9iVBUGTKTndiug xxEtMGEbfx33MYK9DbLrv6 U8PQDwOrYtBKCvBW8pzEps TCYtQO8gZCXwQ7szuR4jpa o6JcYfONMjCzU1TRIprqH5 Azx8NUYwINaej1mxx8ZpB7 TvoPNvsZx4b1edHVFuYzO4 ePMgRPvbV4sztiEnjCQnJM TvBTp8fUlrMhGuRFRmk7as cyBcZmNoYXJzZXQwIENhbG pbnep5vR97KRZdqP8fuWSv MZrjkfFyOtX0UDsaIRVgHh L2HCCeuEEuCVWgY5aoUIKm JSqvZUFxUBqkaGPoPXC3tK vqp7D8dKChiJXzeEaeZuLa QyGzUNXKi2IwIIg9rOtyH0 AjLLRlHkZ6iIAfVYIqDJap LNEoRFEgsgY7hW11LYbytn J3mUSfo8Asc51kh645zL6j uBAbTLL9OGPbRRFgwCQgHW DjHGE5TTTalYSiU4imLJRp OM6etuvqHNleQBoyVISpeI Q5FOUjmAQmB8UcZUMlQVoe QPAzbgm8NyDlLi6xnZCmqW bxDWbxy4asj0alnRHeQrf1 QBMdWtFcXoywHWuup4Pbc3 cbBMEtae3bFHN0eOSnhPeo o0P8rJBvPGWasYFfxcHdPG KnObA1TUnvSW0itz14LGXg OQV4xn7ijZKufXeutmKjqC IfIZsqV1PeUSOvi346PGGb X9NwUBXzq5C1atAeZeDeOW JrmAL6vnM9ZTDjQBe2xOMn dyC2oyUvwFDpU4lywM5mXI NsRE5dyzlzz7fvYLpeBOhb BTGllKY1knK4OEWbfFUqH6 NrqJ3mAOAzOHeaWVXwgaz2 QqJfTi8cvDHbzSptTUpfKv twYWdlXHBnbmNvbnRccGdu ZGVjXHBsYWluXHBsYWluXG DmFMOeRbRroIkpzBphtV1o NxZmJtToWYflKO1cVACgN7 cfyWLdSJZoTEBuT7eiSgAa dI2idMmqCFfsCkWpKwAzCI xwYXIgSSBoYXZlIHBlcnNv ldCygPgcegU8mDH0WODwOT seFJAlFMQtoXKnpo8gpEgt AJLrVX8cLKDqgxBrMIybuW ltSZafDDY6FSQeqNFjpYTb bWFkZSBieSByZXNpZGVudH GvUSGqdEgkc9Bfv3JewOA5 gY1ie2miu8QlQRWjtAS0OO 65dvM6zN1bRDYfLQ1yVCCz XV2dlXUomWPvOFMgw25uoH hpcyByZXBvcnQuXHBsYWlu XGYyXGZzMjhcbGFuZzEwMz NcaGljaFxmMlxkYmNoXGYy LJksW9gxSgSyEoAiYSotJX J9fQ== Clinical Information (test code = 9346169098) Pelvic pain, adenomyosis Gross Description (test code = 2619991789) p5zdyMDnTZUrbUYJRWU7WQ RpAL7caUlctTk5xSjfZDIx ioU7jVJhHXcwp6rrWNT9p7 qksdKNZinkDFPpYP1qDQdn SDIzAX7qXqLeKORhOvGyRY BhcGVydzEyMjQwXHBhcGVy cKL6NBOyZI9btxspLEgiSQ heLZDkojB0VWRnzUBaY4Qy JOBmAM0kasygBVZ0ORITOi axCq7xxOVglXcuHfVzDoNr YXJzZXQwXGZuaWwgQXJpYW a9nZ2ZVibcOIM7NKILVugp BjqpfEaqp3PtuIZeCMRpYY xcaWQgNTEwMDAgXFxkYiBP JhFqQdAsMRN9ViRbWWStVS m7VAbePlDJMLQ3TZY2KwMa VLf0IVxkJSdfcSOkTAFjYC FaCYEmCGdshrS7q4khWGJs cRQjRDA9CGqdy1mhVHraGD B8CBUnAyTbQFCbOC7UZsIh NUAkQUU9CvQ4RlT0TGx9ZR KQXtDjFcLgBiBlCWK6Nocq LIn0BOo6GOyDEhJoRNDuMP lfZsN4XBH5KzXgOFvmxKCx YHdlo3QfZpMrHUXqFSwxqj Q7KQPfozAeYLjhxCleqD6h LmDpCEYETNHUIC6OCpZIPJ q6ghYlKEHsGyVigCToZL5X PSXpjfRhHZnyfByamT8vzQ VsE7arEeVhKxavuEizJgYa dERvYzEgDQpcbHRycGFyIA 8FS2PgF7ahZX3bCJIevyRr BXJzuOQgSEOyobEbm5EvOL xpbiBsYWJlbGVkIHdpdGgg aIV4dXAnrBkwHrDfWX0piA XdKJSZDM63gGSxwbsbZWVk qBYccqWzOZXrEDS0mXuuRO FuZCBiaWxhdGVyYWwgZmFs oE2bjRXpKOM2XjVwLWrTWH blGuAzZZ1eWJPbbuVpd4Aq BS6yMHZqbSWxPMAovlrvoU TyyeYkAHryoGpbMOY9PPMa RYScB8Llpui1IVs9KuLamY T4QgEefIE8LxNyX95nOZv1 ACxnCF3oZSD4qHMyRCZ9kE QrbNFzCNFivZC2BGTmwGNg zL1luebniTUwWTZpcOajlW wsipY5zHAtsjFffirdlIQs LT1iLUAwUCflANnjhii1iF XisZAeCmRkF45qXWfkeHU8 ZXIsIGxlZnQgLTUuMCBjbS UawqPhZO2prWzjGcdgNL7a ZHMxDQblYYHxCI9tiFFhXE 1mBOTdKYEpINGnw9KiIDO6 qbJrF6JfoJPtsQAlSHAhdz hoAL5dCOZln608dV6zSVxh EWYjjR8vZQR1yEsvHGMuDI BjbSBpbiBkaWFtZXRlcikg xDLblZIgGCZfqnmzMZ7yIK rtc8JhaJrjvJ4qSD1huhau PjmfABjogManVVOvVO04gv ApsQzjqT7tYQHqKUWeovBl TE6oSAhqTzEhY61oQ13llF 9biIFbC3OiGF4mCAsdDNKf XH1rYCE7gHIxlBOfDH1dtW KvBb67CNOlJHgcLLpbacm8 aCkgaXMgdGFuLXBpbmsuIF ZgACDbhzYpcFT8xmhagEEq YXZpdHkgKGFwcHJveGltYX QexRxfDF6qSRgrFo7lBKCv ANWdzkVwqK2kTPL7xNDmOU YkypelrITiZOb9y8hzXN0w u39hzQIvvI0eeKSga8ZquH 6uVBIrNZRbkXYvvjW7wGcy h28au1HdIFLGhLKgdRarxO L2nop9eEUkIZ30LRGkKDXo eQWwyF2wJWSsyQZprdKebz myIB52DQYvXSNzp7Zslabj rfQ5wPout04xq1GmMQfkMH Tzzs7wsS1mEJLhPVSiIXPm YWxzIGEgdGFuLXdoaXRlIH ktyKVsPMFoyY30gbRztDZt zHNhm4V4kTHbYEOaNRPjeW PedzBfkGWmwKJzfV4jmzUb u91iJGqfAWXsJKCpc5W9JH Xgd0PmlKWyqmZbVoZaPGTu fQG2mQBwUZqpETBnivrgqX x4BMJbX8Vms70iGJQ5fcCe ZXZlYWwgdGFuLXBpbmsgY3 E4WVX3rxFmA1DgKRitzGpq RQYqqS7ml9nhoXSmrO6ckm 0iKHJlcIUwo2MjfTP9hOEj UYYkL6Hrb97tXEHeJIYyvX FczAM7LYPuvB8uXPJyEUtn XHBhciANClxwYXIgDQpJbm nxJ83gXHizeHCzBT0VRre8 TLCaPFMfaYXonR9uGGObbJ QeeqVkCRWkq6Fofevdnjqp JXRoKJusoZKmHX0FF9VpcT ixasVlb2DhEhknSGVtJNcQ UKylHK84WHKly7EtNDK9r3 MmutRvkRW1tmJzqcGmK1Kn pmduUZnmT4FkNLzlJROapH Ufg3UazWJ7zMAhUNZcVDdf FFWnPYxXOsjaGX1abLGbuR 5bLHIidY3lOYN5aDpsnO7f DG0mo1EzgcOcH8ZdRSHwsm FsLCByZXByZXNlbnRhdGl2 PBgcLMXtPLcKKy9KNBfqHL 45CHUhs5ZuJB3lf575m45j vHEsdD1jTZL6vEjimYgeE6 tuZXNzLCByZXByZXNlbnRh lDz1MDgpTKOxUJnMKPXxPZ U9WYWjd7DlkazueyJvjmFe pPwyiVZ4pfw0sBjmZvRfpD 32kXigf87ek0ZlPSViaGOq g9UhgYF1zRNzJNMkqrEKKd K9YtHOaSnldAKznU6ilhoo hGGaOAYsnGrznCioewP6cA JlLCByZXByZXNlbnRhdGl2 YUQpjr4xdy6fAJF6uL4atw IqbtNiES65gURxXTVsn4Ix dGVkIGZpbWJyaWFccGFyIA 3DDPq8BNkeSaCsFdckCzVq XEYiDPNpSFqiz5WaYA8kvU AaQOxouqBlzdXvJC54KASk bvWpu7YpzMcrriL5wBXcVW 73uQMyTIYkr4OmbTKrQXFo rZAxcWZweWIcWS5PVOAetu ONGdhkPZFlNBDlpVELb2Yq MVYBWcs6pYcuJG9nVMivMF 7fuSowGZIhTHXRW5DaAQnf KKZeE57pc0YMu6Xsf6gjfD eaj9MkgQQbDC90AJTtqLWb UCY8CB0htGpfACPcVQfozH FyZCANCn0= Disclaimer (test code = 5113220728) b9kllWXsZMIqo6nwBWKhjK FuZzEwMzNcZnRuYmpcdWMx OIbaxhIaJPcjt9MaX7BfCd AwMFxhbnNpXGRlZmxhbmcx EPHrGLR4zvJjCZAsGZxxLM SnLTogMr1rjKDudBsiMwJm QORld0xuudXKPZlgWpUgU6 32AWDqCJrdp9xwe6WeATAd kJJzd7S3OQEYuvqmgHu9eV gdC37qi1G5SmlcF2gcUVSe WJGmX0SdEK1lSSMxPqk1PW G2XIZ4BUJhGHBjY8SoJZ5j YATusWMcEUk1s5fyhZseFZ OiPZF4z8ifMJlrblSaPU4k di0ecRf1e9tjsqLrSRDbFA OgaYTMUMGgX9QwxGjvMw1z dOt3rKkhJwonWLM0Udt5ZB 1rei79saf5zRfnUIDvuvmg NmH6PDvqAPVkpyhgELb8BP pdSRDjxVT1LLVjiYRmI4Yk JIRgBJ9plns9KKV9ETrgWF MdLxF9TCPdkBNvSLQthBzr RXbmi769RYP8YzNbAB5rJ5 Fvg9Z9sI8fgTYkVIUadRLq XsPjVDWsco6hhYPaTDhhp0 OcXUR2eaD7uDZctXBuHBLs JL25Oovel2GnAbjkq3PzF7 9chRM7RFbap0bpYY0cQmZ2 ddWnPHivv8kcaL6uQmT5ND laBQ6aZA4oRCUeoA0lyheb XHBnYnJkcmhlYWRccGdicm XtEo6pwZplPVE5REwqM6eb mG4oWmY0YZriE5oleG8cRY z9SJxcyKS7TMHzdN2tRE3l xtmpn1vhVYrkLWwmRVMtyc C8yiZ3KRByiSDjY2WjaX6s LRTnWI3qnudrj2yrGXQ4MP kiDEIaKOQ6LiMrSYYzm2Ex vfc8NtUap1SuzKRgUTroM7 8lz850LQIbwhCkY3txuBOa wawtyHOeofrtJQljhiY0DY DgnaFeu8IfPOUjNGG3MXrn AOkmsLRvYCFbmTlop6huU0 RscGFyXHBsYWluXGYxXGZz MjBcbGFuZzEwMzNcaGljaF cnALurVfPfGRNtZOamL9vv EzLpB9YdNGUeMcRnqLQrB6 ggVGhpcyByZXBvcnQgbWF5 SMifV4k4OLKghaYazYx7cb ElXhSpUPSbQQA6COnriUDy XABgu7FvvmztbGRoCd5ssJ KkISDncA0tPDPpLZHgUPns LL7ouJr9AQXQtHQzxEPcJt TTLYNiDJ78yaFfHRGOivhf o0I6MVanKIEbr3FjgETuZ6 sxd2MdIDJfu60eID8nc4L9 p0avBAQ3DM6ka7OdWOErbK FdtYJhCJTkz1Tqhgqfc6Yr YQMqgvZmq6EaLQPkukBcmO MvMZGuiuSlxu4wkaGlMZOo IWIdP2HeyloblFnlojHkPJ Mgvs7dxiHzTOP1LXYHIESi CYRtl3UxzJ2srCGZKMT8mA Obsj7pmmBWsKHjVGXizc26 PHYaQZ8dO3thXDFxFNUtpt JeqFXxm5LiVCNblXP9sOEa EX5MDqHYu96fNAHdVQLTua JaGZXueFrvxXO4puO6iD4e IChGREEpLlx+IFRoZSBGRE PiKM1vcvVcc0PbzbTjvKwl HOSleLSrd7LgfUCth9AdfG rsx3VmaUFjyARvRD6rANOx clxwYXIgVVRNQiBMYWJvcm N0k1WzGPNqAWZwOBI9wHba cpw5WHMuwA4sKKCdV4vqqq qyYQloUIVjz1EqvB1idXQO jXHme8ZqrCAmmHHKqPVcDQ 7vivTbZBeGJXiJRYA4maRz MONvv3YeIMhlQ5wqH26tqB dxkBh0iMU6DRR8dZ9yUgb+ IFxwYXJccGFyIEFwcHJvcH JyDRDlyAbnhuJkQ3LlhkNh wQ1baRVdwnFqWG8tJQ1oE0 H0jGAeJDGntyXav7nyMNeb dmUgYmVlbiByZXZpZXdlZC Ibf0TvZIymLAV5YUacvpCs bmNsdWRpbmcgSCZFLCBTcG QsrUSpGAX2BHapyeMomuFi CV2ebD7luLvlfX9ceEUijM G9jiqlDVLiYXEroShwXFXn IV7ipYhiwV0lXdDyXsZiCE vsQV3aZAEaD6arvQKzVEKz KSMgL2scGmYfdT3bzMuzWB xjZjJcZnMyMFxwYXJccGFy XHBsYWluXGYxXGZzMjBcbG FuZzEwMzNcaGljaFxmMVxk XcTpVRBiSRktI1igUpKxA4 QuTCUwHdPfkODaR0rtZEvq XFU4RZCkRN8joIDlMQ64oH Smq0tyKXegdZnzra2cC18y kQFgRGtbxNhtUBSfz68dt8 IwGHCzuaGqro4eZXAaquM4 hP8pNBOojAyhKSSbpSBuAX Ezt0NfWTugiAXtsnKzRRbp GTVoLCThbTBppmC5wvTopt BtasJgABMvoEcgJAOxf2Pe ZXLtGWnov6Rniw7wcIMcLR OmzcWXbJqzzUVrpK5nF3Ue MWNmVBPgdx1jKYPemR3lCI vcr8IewmnfPNKsOFXgYJVa czOrtw2iQELqvPKZGX1FKU wqrJSek5VumrJaS5dMFXN9 NUQwNjYwMjgxKSBleGNlcH RjLDDhzf80TIPkxN4ayBxu RJOeiC1sjP6jlHnmhQ3fFx LdIqYyTHilDF6bPYRbA9ph dMNtAYIkEFZsZ2auIkLqrN 9jaFxmMVxjZjJcZnMyMFxw YXJ9fQ== Embedded Images (test code = 7102083308) [facility] [id number] 15:19:54* Test Item Value Reference Range Interpretation Comme nts Blood Culture-Aerobic (test code = 54976-4) Culture positive. See Blood Culture Workup for additional information. No growth AA Previous preliminary verified result was Culture In Progress on 12/18/2022 at 1801 [employer] Blood Culture-Anaerobic (test code = 77034-8) Culture positive. See Blood Culture Workup for additional information. No growth AA Previous preliminary verified result was Culture In Progress on 12/18/2022 at 1801 [employer] Lab Interpretation (test code = 89327-7) Abnormal [facility] GLUCOSE (AUTOMATED)2022-12-21 13:42:29* Test Item Value Reference Range Interpretation Comme nts POCT GLU (test code = 0430806790) 137 mg/dL 70-110 H Lab Interpretation (test cod e = 47378-7) Abnormal [facility] GLUCOSE (AUTOMATED)2022-12-21 02:08:25* Test Item Value Reference Range Interpretation Comme nts POCT GLU (test code = 7648205150) 152 mg/dL 70-110 H Lab Interpretation (test cod e = 13415-7) Abnormal [facility] GLUCOSE (AUTOMATED)2022-12-20 14:07:45* Test Item Value Reference Range Interpretation Comme nts POCT GLU (test code = 8989739823) 74 mg/dL 70-110 Lab Interpretation (test cod e = 03361-5) Normal [facility] GLUCOSE (AUTOMATED)2022-12-20 14:07:45* Test Item Value Reference Range Interpretation Comme nts POCT GLU (test code = 2793801904) 74 mg/dL 70-110 Lab Interpretation (test cod e = 16216-4) Normal [facility] NEGATIVE BLOOD PATHOGENS DNA [id number] 20:45:25* Test Item Value Reference Range Interpretation Comme nts Gram Negative Blood Path by DNA Comm-Anaerobic (test code = 34016-5) No organisms included in the Blood DNA Probe test panel were detected. Further identification workup to be performed by culture testing methods. JEANINE (test code = JEANINE) See blood culture result for additional information. ?Testing included eight identification and six resistance marker targets. [facility] NEGATIVE BLOOD PATHOGENS DNA [id number] 20:45:25* Test Item Value Reference Range Interpretation Comme nts Gram Negative Blood Path by DNA Comm-Anaerobic (test code = 02586-4) No organisms included in the Blood DNA Probe test panel were detected. Further identification workup to be performed by culture testing methods. JEANINE (test code = JEANINE) See blood culture result for additional information. ?Testing included eight identification and six resistance marker targets. [facility] NEGATIVE BLOOD PATHOGENS DNA [id number] 20:45:25* Test Item Value Reference Range Interpretation Comme nts Gram Negative Blood Path by DNA Comm-Anaerobic (test code = 87095-4) No organisms included in the Blood DNA Probe test panel were detected. Further identification workup to be performed by culture testing methods. JEANINE (test code = JEANINE) See blood culture result for additional information. ?Testing included eight identification and six resistance marker targets. [facility] L[facility] [id number] 10:31:21* Test Item Value Reference Range Interpretation Comme nts PH (test code = 2) 7.43 7.35-7.45 PCO2 (test code = 6051557313) 30 See_Comment L [Automated messa ge] The system which generated this result transmitted reference range: 35 - 45 mmHg. The reference range was not used to interpret this result as normal/abnormal. PO2 (test code = 7720712830) 118 See_Comment H [Automated messa ge] The system which generated this result transmitted reference range: 80 - 100 mmHg. The reference range was not used to interpret this result as normal/abnormal. HCO3 (test code = 9820445644) 20 See_Comment L [Automated messa ge] The system which generated this result transmitted reference range: 22 - 26 mEq/L. The reference range was not used to interpret this result as normal/abnormal. BE (test code = 1827273880) -3.7 See_Comment L [Automated messa ge] The system which generated this result transmitted reference range: -3.0 - 3.0 mEq/L. The reference range was not used to interpret this result as normal/abnormal. THB (test code = 7373553347) 9.8 g/dL 12.0-16.0 L %O2HB (test code = 5697337390) 97.8 % 94.0-99.0 %COHB ART (test code = 7978854873) 0.1 % 0.0-1.5 %METHB ART (test code = 7286102510) 0.1 % 0.4-1.5 L VOL%O2 ART (test code = 2413007003) 13.7 % 15.0-23.0 L NA (test code = 7983851192) 132 mmol/L 135-145 L K+ (test code = 8034372651) 3.9 mmol/L 3.5-5.0 AC CA IONZ (test code = 8911705760) 5.00 mg/dL 4.50-5.30 GLUCOSE (test code = 5904572253) 70 mg/dL 70-110 LACTIC ACID (test code = 3805891746) 1.98 mmol/L 0.50-2.20 Lab Interpretation (test code = 17658-5) [facility] Lactic [id number] 10:31:21* Test Item Value Reference Range Interpretation Comme nts PH (test code = 2) 7.43 7.35-7.45 PCO2 (test code = 5475794670) 30 See_Comment L [Automated messa ge] The system which generated this result transmitted reference range: 35 - 45 mmHg. The reference range was not used to interpret this result as normal/abnormal. PO2 (test code = 2230181246) 118 See_Comment H [Automated messa ge] The system which generated this result transmitted reference range: 80 - 100 mmHg. The reference range was not used to interpret this result as normal/abnormal. HCO3 (test code = 0482845773) 20 See_Comment L [Automated messa ge] The system which generated this result transmitted reference range: 22 - 26 mEq/L. The reference range was not used to interpret this result as normal/abnormal. BE (test code = 8802231225) -3.7 See_Comment L [Automated messa ge] The system which generated this result transmitted reference range: -3.0 - 3.0 mEq/L. The reference range was not used to interpret this result as normal/abnormal. THB (test code = 1491308757) 9.8 g/dL 12.0-16.0 L %O2HB (test code = 7518224780) 97.8 % 94.0-99.0 %COHB ART (test code = 8768197832) 0.1 % 0.0-1.5 %METHB ART (test code = 4647330823) 0.1 % 0.4-1.5 L VOL%O2 ART (test code = 5894573055) 13.7 % 15.0-23.0 L NA (test code = 0890498413) 132 mmol/L 135-145 L K+ (test code = 8379057076) 3.9 mmol/L 3.5-5.0 AC CA IONZ (test code = 7796676907) 5.00 mg/dL 4.50-5.30 GLUCOSE (test code = 2498208048) 70 mg/dL 70-110 LACTIC ACID (test code = 4915535741) 1.98 mmol/L 0.50-2.20 Lab Interpretation (test code = 66931-1) [facility] Lactic [id number] 10:31:21* Test Item Value Reference Range Interpretation Comme nts PH (test code = 2) 7.43 7.35-7.45 PCO2 (test code = 0451605200) 30 See_Comment L [Automated messa ge] The system which generated this result transmitted reference range: 35 - 45 mmHg. The reference range was not used to interpret this result as normal/abnormal. PO2 (test code = 3019443486) 118 See_Comment H [Automated messa ge] The system which generated this result transmitted reference range: 80 - 100 mmHg. The reference range was not used to interpret this result as normal/abnormal. HCO3 (test code = 3550522537) 20 See_Comment L [Automated messa ge] The system which generated this result transmitted reference range: 22 - 26 mEq/L. The reference range was not used to interpret this result as normal/abnormal. BE (test code = 5464803076) -3.7 See_Comment L [Automated messa ge] The system which generated this result transmitted reference range: -3.0 - 3.0 mEq/L. The reference range was not used to interpret this result as normal/abnormal. THB (test code = 7449818261) 9.8 g/dL 12.0-16.0 L %O2HB (test code = 5085351829) 97.8 % 94.0-99.0 %COHB ART (test code = 5149316263) 0.1 % 0.0-1.5 %METHB ART (test code = 2874750957) 0.1 % 0.4-1.5 L VOL%O2 ART (test code = 0516121950) 13.7 % 15.0-23.0 L NA (test code = 5088915270) 132 mmol/L 135-145 L K+ (test code = 6228966386) 3.9 mmol/L 3.5-5.0 AC CA IONZ (test code = 5189209713) 5.00 mg/dL 4.50-5.30 GLUCOSE (test code = 2993802124) 70 mg/dL 70-110 LACTIC ACID (test code = 2327449577) 1.98 mmol/L 0.50-2.20 Lab Interpretation (test code = 54842-8) [facility] [id number] 05:39:49* Test Item Value Reference Range Interpretation Comme nts LACTIC ACID (test code = 0212868664) 2.19 mmol/L 0.50-2.20 Lab Interpretation (test cod e = 43563-5) [facility] [id number] 05:39:49* Test Item Value Reference Range Interpretation Comme nts LACTIC ACID (test code = 3277484352) 2.19 mmol/L 0.50-2.20 Lab Interpretation (test cod e = 66067-0) [facility] [id number] 19:13:57* Test Item Value Reference Range Interpretation Comme nts LACTIC ACID (test code = 4537155997) 4.47 mmol/L 0.50-2.20 H Lab Interpretation (test cod e = 24065-5) Abnormal [facility] Acid Whole [id number] 19:13:57* Test Item Value Reference Range Interpretation Comme nts LACTIC ACID (test code = 1542346403) 4.47 mmol/L 0.50-2.20 H Lab Interpretation (test cod e = 49707-4) Abnormal [facility] WITH [id number] 11:32:38* Test Item Value Reference Range Interpretation [...] 33.7 g/dL 31.6-35.1 RDW-SD (test code = 13453-2) 42.7 fL 39.0-49.9 RDW-CV (test code = 788-0) 13.2 % 12.0-15.5 PLT (test code = 777-3) 319 See_Comment [Automated messa ge] The system which generated this result transmitted reference range: 166 - 358 10*3/?L. The reference range was not used to interpret this result as normal/abnormal. MPV (test code = 98360-2) 10.4 fL 9.5-12.9 NRBC/100 WBC (test code = 1741280720) 0.0 See_Comment [Automated me ssage] The system which generated this result transmitted reference range: 0.0 - 10.0 /100 WBCs. The reference range was not used to interpret this result as normal/abnormal. NRBC x10^3 (test code = 2847733671) See_Comment [Automated messa ge] The system which generated this result transmitted reference range: 10*3/?L. The reference range was not used to interpret this result as normal/abnormal. GRAN MAT (NEUT) % (test code = 770-8) 75.2 % IMM GRAN % (test code = 4749138825) 0.50 % LYMPH % (test code = 736-9) 18.6 % MONO % (test code = 5905-5) 5.4 % EOS % (test code = 713-8) 0.0 % BASO % (test code = 706-2) 0.3 % GRAN MAT x10^3(ANC) (test code = 9638077578) 2.78 10*3/uL 1.88-7.09 IMM GRAN x10^3 (test code = 8509537759) 0.00-0.06 LYMPH x10^3 (test code = 731-0) 0.69 10*3/uL 1.32-3.29 L MONO x10^3 (test code = 742-7) 0.20 10*3/uL 0.33-0.92 L EOS x10^3 (test code = 711-2) 0.03-0.39 L BASO x10^3 (test code = 704-7) 0.01-0.07 Lab Interpretation (test code = 33593-3) Abnormal [facility] WITH [id number] 11:32:38* Test Item Value Reference Range Interpretation [...] 33.7 g/dL 31.6-35.1 RDW-SD (test code = 28579-9) 42.7 fL 39.0-49.9 RDW-CV (test code = 788-0) 13.2 % 12.0-15.5 PLT (test code = 777-3) 319 See_Comment [Automated [employer] ge] The system which generated this result transmitted reference range: 166 - 358 10*3/?L. The reference range was not used to interpret this result as normal/abnormal. MPV (test code = 46635-9) 10.4 fL 9.5-12.9 NRBC/100 WBC (test code = 2065463579) 0.0 See_Comment [Automated [employer] ssage] The system which generated this result transmitted reference range: 0.0 - 10.0 /100 WBCs. The reference range was not used to interpret this result as normal/abnormal. NRBC x10^3 (test code = 2637047725) See_Comment [Automated [employer]] The system which generated this result transmitted reference range: 10*3/?L. The reference range was not used to interpret this result as normal/abnormal. GRAN MAT (NEUT) % (test code = 770-8) 75.2 % IMM GRAN % (test code = 3958127275) 0.50 % LYMPH % (test code = 736-9) 18.6 % MONO % (test code = 5905-5) 5.4 % EOS % (test code = 713-8) 0.0 % BASO % (test code = 706-2) 0.3 % GRAN MAT x10^3(ANC) (test code = 6255205358) 2.78 10*3/uL 1.88-7.09 IMM GRAN x10^3 (test code = 8992578239) 0.00-0.06 LYMPH x10^3 (test code = 731-0) 0.69 10*3/uL 1.32-3.29 L MONO x10^3 (test code = 742-7) 0.20 10*3/uL 0.33-0.92 L EOS x10^3 (test code = 711-2) 0.03-0.39 L BASO x10^3 (test code = 704-7) 0.01-0.07 Lab Interpretation (test code = 31257-8) Abnormal [facility] METABOLIC PANEL (NA, K, CL, CO2, GLUCOSE, BUN, CREATININE, CA)2022-12-18 11:17:48* Test Item Value Reference Range Interpretation Comme nts NA (test code = 1316850641) 126 mmol/L 135-145 L K (test code = 4124648285) 4.1 mmol/L 3.5-5.0 CL (test code = 2872903665) 97 mmol/L 98-108 L CO2 TOTAL (test code = 8806478371) 19 mmol/L 23-31 L AGAP (test code = 4062926993) 10 2-16 BUN (test code = 6757919373) 19 mg/dL 7-23 GLUCOSE (test code = 9789970209) 102 mg/dL 70-110 CREATININE (test code = 1841718176) 1.78 mg/dL 0.50-1.04 H CALCIUM (test code = 5146590242) 10.3 mg/dL 8.6-10.6 eGFR (test code = 24309-1) 36.2 mL/min/1.73m2 CKD-EPI eGFR (2020). Assuming creatinine has been stable day-to-day for at least three months, the eGFR indicates Category G3b (30 - 44 mL/min/1.73 m2) Lab Interpretation (test code = 88220-8) Abnormal [facility] METABOLIC PANEL (NA, K, CL, CO2, GLUCOSE, BUN, CREATININE, CA)2022-12-18 11:17:48* Test Item Value Reference Range Interpretation Comme nts NA (test code = 9034012663) 126 mmol/L 135-145 L K (test code = 0503231632) 4.1 mmol/L 3.5-5.0 CL (test code = 5787370915) 97 mmol/L 98-108 L CO2 TOTAL (test code = 8190428574) 19 mmol/L 23-31 L AGAP (test code = 5391837724) 10 2-16 BUN (test code = 4089447649) 19 mg/dL 7-23 GLUCOSE (test code = 7502635605) 102 mg/dL 70-110 CREATININE (test code = 3164119670) 1.78 mg/dL 0.50-1.04 H CALCIUM (test code = 2942246168) 10.3 mg/dL 8.6-10.6 eGFR (test code = 92545-0) 36.2 mL/min/1.73m2 CKD-EPI eGFR (2020). Assuming creatinine has been stable day-to-day for at least three months, the eGFR indicates Category G3b (30 - 44 mL/min/1.73 m2) Lab Interpretation (test code = 27062-5) Abnormal [facility] METABOLIC PANEL (NA, K, CL, CO2, GLUCOSE, BUN, CREATININE, CA)2022-12-17 23:14:58* Test Item Value Reference Range Interpretation Comme nts NA (test code = 9455047884) 128 mmol/L 135-145 L K (test code = 3958083902) 3.7 mmol/L 3.5-5.0 CL (test code = 4519919209) 97 mmol/L 98-108 L CO2 TOTAL (test code = 1518800206) 16 mmol/L 23-31 L AGAP (test code = 5834449202) 15 2-16 BUN (test code = 8178615458) 13 mg/dL 7-23 GLUCOSE (test code = 1886468077) 156 mg/dL 70-110 H CREATININE (test code = 0317377400) 1.06 mg/dL 0.50-1.04 H CALCIUM (test code = 4771157345) 11.0 mg/dL 8.6-10.6 H eGFR (test code = 35076-7) 67.4 mL/min/1.73m2 CKD-EPI eGFR (2020). Assuming creatinine has been stable day-to-day for at least three months, the eGFR indicates Category G2 (60 - 89 mL/min/1.73 m2) Lab Interpretation (test code = 30925-3) Abnormal [facility] METABOLIC PANEL (NA, K, CL, CO2, GLUCOSE, BUN, CREATININE, CA)2022-12-17 23:14:58* Test Item Value Reference Range Interpretation Comme nts NA (test code = 3471613463) 128 mmol/L 135-145 L K (test code = 3831232272) 3.7 mmol/L 3.5-5.0 CL (test code = 7050558916) 97 mmol/L 98-108 L CO2 TOTAL (test code = 1780254048) 16 mmol/L 23-31 L AGAP (test code = 0479490075) 15 2-16 BUN (test code = 3306993714) 13 mg/dL 7-23 GLUCOSE (test code = 6006481382) 156 mg/dL 70-110 H CREATININE (test code = 5666931546) 1.06 mg/dL 0.50-1.04 H CALCIUM (test code = 7120310448) 11.0 mg/dL 8.6-10.6 H eGFR (test code = 53474-8) 67.4 mL/min/1.73m2 CKD-EPI eGFR (2020). Assuming creatinine has been stable day-to-day for at least three months, the eGFR indicates Category G2 (60 - 89 mL/min/1.73 m2) Lab Interpretation (test code = 26581-0) Abnormal [facility] with Differential - On Postoperative Day # 21:17:38* Test Item Value Reference Range Interpretation [...] 32.9 g/dL 31.6-35.1 RDW-SD (test code = 79185-5) 43.5 fL 39.0-49.9 RDW-CV (test code = 788-0) 13.2 % 12.0-15.5 PLT (test code = 777-3) 483 See_Comment H [Automated message] The system which generated this result transmitted reference range: 166 - 358 10*3/?L. The reference range was not used to interpret this result as normal/abnormal. MPV (test code = 70228-3) 10.1 fL 9.5-12.9 NRBC/100 WBC (test code = 2431010597) 0.0 See_Comment [Automated message] The system which generated this result transmitted reference range: 0.0 - 10.0 /100 WBCs. The reference range was not used to interpret this result as normal/abnormal. NRBC x10^3 (test code = 5526702590) See_Comment [Automated message] The system which generated this result transmitted reference range: 10*3/?L. The reference range was not used to interpret this result as normal/abnormal. GRAN MAT (NEUT) % (test code = 770-8) 89.7 % IMM GRAN % (test code = 5075507279) 0.40 % LYMPH % (test code = 736-9) 5.7 % MONO % (test code = 5905-5) 4.0 % EOS % (test code = 713-8) 0.0 % BASO % (test code = 706-2) 0.2 % GRAN MAT x10^3(ANC) (test code = 2710677110) 17.33 10*3/uL 1.88-7.09 H IMM GRAN x10^3 (test code = 5146993090) 0.07 10*3/uL 0.00-0.06 H LYMPH x10^3 (test [...] result as normal/abnormal. BANDS (test code = 0023076754) MARKED INCREASED A Lab Interpretation (test code = 41202-5) Abnormal [facility] with Differential - On Postoperative Day # [id number] 21:17:38* Test Item Value Reference Range Interpretation [...] 32.9 g/dL 31.6-35.1 RDW-SD (test code = 42268-8) 43.5 fL 39.0-49.9 RDW-CV (test code = 788-0) 13.2 % 12.0-15.5 PLT (test code = 777-3) 483 See_Comment H [Automated message] The system which generated this result transmitted reference range: 166 - 358 10*3/?L. The reference range was not used to interpret this result as normal/abnormal. MPV (test code = 90211-4) 10.1 fL 9.5-12.9 NRBC/100 WBC (test code = 0429334426) 0.0 See_Comment [Automated message] The system which generated this result transmitted reference range: 0.0 - 10.0 /100 WBCs. The reference range was not used to interpret this result as normal/abnormal. NRBC x10^3 (test code = 3293194584) See_Comment [Automated message] The system which generated this result transmitted reference range: 10*3/?L. The reference range was not used to interpret this result as normal/abnormal. GRAN MAT (NEUT) % (test code = 770-8) 89.7 % IMM GRAN % (test code = 7888334493) 0.40 % LYMPH % (test code = 736-9) 5.7 % MONO % (test code = 5905-5) 4.0 % EOS % (test code = 713-8) 0.0 % BASO % (test code = 706-2) 0.2 % GRAN MAT x10^3(ANC) (test code = 4227043947) 17.33 10*3/uL 1.88-7.09 H IMM GRAN x10^3 (test code = 4697211151) 0.07 10*3/uL 0.00-0.06 H LYMPH x10^3 (test [...] result as normal/abnormal. BANDS (test code = 0402241245) MARKED INCREASED A Lab Interpretation (test code = 75911-8) Abnormal [facility] with Differential - On Postoperative Day # [id number] 21:17:38* Test Item Value Reference Range Interpretation [...] 32.9 g/dL 31.6-35.1 RDW-SD (test code = 78112-5) 43.5 fL 39.0-49.9 RDW-CV (test code = 788-0) 13.2 % 12.0-15.5 PLT (test code = 777-3) 483 See_Comment H [Automated message] The system which generated this result transmitted reference range: 166 - 358 10*3/?L. The reference range was not used to interpret this result as normal/abnormal. MPV (test code = 97366-7) 10.1 fL 9.5-12.9 NRBC/100 WBC (test code = 3891379758) 0.0 See_Comment [Automated message] The system which generated this result transmitted reference range: 0.0 - 10.0 /100 WBCs. The reference range was not used to interpret this result as normal/abnormal. NRBC x10^3 (test code = 4930223569) See_Comment [Automated message] The system which generated this result transmitted reference range: 10*3/?L. The reference range was not used to interpret this result as normal/abnormal. GRAN MAT (NEUT) % (test code = 770-8) 89.7 % IMM GRAN % (test code = 5126752334) 0.40 % LYMPH % (test code = 736-9) 5.7 % MONO % (test code = 5905-5) 4.0 % EOS % (test code = 713-8) 0.0 % BASO % (test code = 706-2) 0.2 % GRAN MAT x10^3(ANC) (test code = 8428046296) 17.33 10*3/uL 1.88-7.09 H IMM GRAN x10^3 (test code = 5075292598) 0.07 10*3/uL 0.00-0.06 H LYMPH x10^3 (test [...] result as normal/abnormal. BANDS (test code = 1233491852) MARKED INCREASED A Lab Interpretation (test code = 50750-3) Abnormal [facility] WITH [id number] 05:49:00* Test Item Value Reference Range Interpretation [...] 33.0 g/dL 31.6-35.1 RDW-SD (test code = 44357-2) 42.8 fL 39.0-49.9 RDW-CV (test code = 788-0) 13.2 % 12.0-15.5 PLT (test code = 777-3) 348 See_Comment [Automated message] The system which generated this result transmitted reference range: 166 - 358 10*3/?L. The reference range was not used to interpret this result as normal/abnormal. MPV (test code = 39344-6) 10.2 fL 9.5-12.9 NRBC/100 WBC (test code = 7632728439) 0.0 See_Comment [Automated message] The system which generated this result transmitted reference range: 0.0 - 10.0 /100 WBCs. The reference range was not used to interpret this result as normal/abnormal. NRBC x10^3 (test code = 7773352793) See_Comment [Automated message] The system which generated this result transmitted reference range: 10*3/?L. The reference range was not used to interpret this result as normal/abnormal. GRAN MAT (NEUT) % (test code = 770-8) 87.8 % IMM GRAN % (test code = 7226764446) 0.30 % LYMPH % (test code = 736-9) 8.1 % MONO % (test code = 5905-5) 3.7 % EOS % (test code = 713-8) 0.0 % BASO % (test code = 706-2) 0.1 % GRAN MAT x10^3(ANC) (test code = 9817265296) 13.96 10*3/uL 1.88-7.09 H IMM GRAN x10^3 (test code = 1254452039) 0.05 10*3/uL 0.00-0.06 LYMPH x10^3 (test code = 731-0) 1.29 10*3/uL 1.32-3.29 L MONO x10^3 (test code = 742-7) 0.59 10*3/uL 0.33-0.92 EOS x10^3 (test code = 711-2) 0.03-0.39 L BASO x10^3 (test code = 704-7) 0.01-0.07 Lab Interpretation (test code = 29313-8) Abnormal [facility] WITH [id number] 05:49:00* Test Item Value Reference Range Interpretation [...] 33.0 g/dL 31.6-35.1 RDW-SD (test code = 09378-7) 42.8 fL 39.0-49.9 RDW-CV (test code = 788-0) 13.2 % 12.0-15.5 PLT (test code = 777-3) 348 See_Comment [Automated message] The system which generated this result transmitted reference range: 166 - 358 10*3/?L. The reference range was not used to interpret this result as normal/abnormal. MPV (test code = 47249-9) 10.2 fL 9.5-12.9 NRBC/100 WBC (test code = 8817901610) 0.0 See_Comment [Automated message] The system which generated this result transmitted reference range: 0.0 - 10.0 /100 WBCs. The reference range was not used to interpret this result as normal/abnormal. NRBC x10^3 (test code = 3189126035) See_Comment [Automated message] The system which generated this result transmitted reference range: 10*3/?L. The reference range was not used to interpret this result as normal/abnormal. GRAN MAT (NEUT) % (test code = 770-8) 87.8 % IMM GRAN % (test code = 5726481623) 0.30 % LYMPH % (test code = 736-9) 8.1 % MONO % (test code = 5905-5) 3.7 % EOS % (test code = 713-8) 0.0 % BASO % (test code = 706-2) 0.1 % GRAN MAT x10^3(ANC) (test code = 5328579267) 13.96 10*3/uL 1.88-7.09 H IMM GRAN x10^3 (test code = 5338148876) 0.05 10*3/uL 0.00-0.06 LYMPH x10^3 (test code = 731-0) 1.29 10*3/uL 1.32-3.29 L MONO x10^3 (test code = 742-7) 0.59 10*3/uL 0.33-0.92 EOS x10^3 (test code = 711-2) 0.03-0.39 L BASO x10^3 (test code = 704-7) 0.01-0.07 Lab Interpretation (test code = 07168-6) Abnormal [facility] WITH [id number] 05:49:00* Test Item Value Reference Range Interpretation [...] 33.0 g/dL 31.6-35.1 RDW-SD (test code = 39516-1) 42.8 fL 39.0-49.9 RDW-CV (test code = 788-0) 13.2 % 12.0-15.5 PLT (test code = 777-3) 348 See_Comment [Automated message] The system which generated this result transmitted reference range: 166 - 358 10*3/?L. The reference range was not used to interpret this result as normal/abnormal. MPV (test code = 08243-9) 10.2 fL 9.5-12.9 NRBC/100 WBC (test code = 6385413168) 0.0 See_Comment [Automated message] The system which generated this result transmitted reference range: 0.0 - 10.0 /100 WBCs. The reference range was not used to interpret this result as normal/abnormal. NRBC x10^3 (test code = 3590086497) See_Comment [Automated message] The system which generated this result transmitted reference range: 10*3/?L. The reference range was not used to interpret this result as normal/abnormal. GRAN MAT (NEUT) % (test code = 770-8) 87.8 % IMM GRAN % (test code = 7015510755) 0.30 % LYMPH % (test code = 736-9) 8.1 % MONO % (test code = 5905-5) 3.7 % EOS % (test code = 713-8) 0.0 % BASO % (test code = 706-2) 0.1 % GRAN MAT x10^3(ANC) (test code = 0699040981) 13.96 10*3/uL 1.88-7.09 H IMM GRAN x10^3 (test code = 1281063464) 0.05 10*3/uL 0.00-0.06 LYMPH x10^3 (test code = 731-0) 1.29 10*3/uL 1.32-3.29 L MONO x10^3 (test code = 742-7) 0.59 10*3/uL 0.33-0.92 EOS x10^3 (test code = 711-2) 0.03-0.39 L BASO x10^3 (test code = 704-7) 0.01-0.07 Lab Interpretation (test code = 18767-4) Abnormal [facility] [id number] 13:00:00* Test Item Value Reference Range Interpretation Comme nts POCT PREG (test code = 1605) Negative On board controls acceptable with C Line (test code = 3574) Yes POCT PREG LOT # (test code = 3575) [id number] POCT PREG TEST DATE ( test code = 3576) 02/10/2024 [facility] [id number] 13:00:00* Test Item Value Reference Range Interpretation Comme nts POCT PREG (test code = 1605) Negative On board controls acceptable with C Line (test code = 3574) Yes POCT PREG LOT # (test code = 3575) [id number] POCT PREG TEST DATE ( test code = 3576) 02/10/2024 [facility] [id number] 13:00:00* Test Item Value Reference Range Interpretation Comme nts POCT PREG (test code = 1605) Negative On board controls acceptable with C Line (test code = 3574) Yes POCT PREG LOT # (test code = 3575) [id number] POCT PREG TEST DATE ( test code = 3576) 02/10/2024 [facility] [id number] 13:00:00* Test Item Value Reference Range Interpretation Comme nts POCT PREG (test code = 1605) Negative On board controls acceptable with C Line (test code = 3574) Yes POCT PREG LOT # (test code = 3575) [id number] POCT PREG TEST DATE ( test code = 3576) 02/10/2024 [facility] URINALYSIS W/O SPECIFIC [id number] 20:02:00* Test Item Value Reference Range Interpretation [...] = 3257) neg [facility] [id number] 20:02:00* Test Item Value Reference Range Interpretation [...] = 3257) neg Negative - [facility] [id number] 20:02:00* Test Item Value Reference Range Interpretation [...] = 3257) neg Negative - Negati ve [facility] URINALYSIS W/O SPECIFIC [id number] 20:02:00* Test Item Value Reference Range Interpretation [...] = 3257) neg Negative - Negati ve [facility] URINALYSIS W/O SPECIFIC [id number] 21:19:00* Test Item Value Reference Range Interpretation [...] = 3257) TRACE Negative - Negati ve [facility] URINALYSIS W/O SPECIFIC [id number] 21:19:00* Test Item Value Reference Range Interpretation [...] = 3257) TRACE Negative - Negati ve [facility] URINALYSIS W/O SPECIFIC [id number] 18:26:00* Test Item Value Reference Range Interpretation [...] = 3257) 250 Negative - Negati ve [facility] URINALYSIS W/O SPECIFIC [id number] 18:26:00* Test Item Value Reference Range Interpretation [...] = 3257) 250 Negative - Negati ve [facility] [id number] 18:54:00* Test Item Value Reference Range Interpretation Comme nts POCT PREG (test code = 1605) Negative On board controls acceptable with C Line (test code = 3574) Yes POCT PREG LOT # (test code = 3575) POCT PREG TEST DATE ( test code = 3576) [facility] [id number] 18:54:00* Test Item Value Reference Range Interpretation Comme nts POCT PREG (test code = 1605) Negative On board controls acceptable with C Line (test code = 3574) Yes POCT PREG LOT # (test code = 3575) POCT PREG TEST DATE ( test code = 3576) [facility] URINALYSIS W/O SPECIFIC [id number] 18:52:00* Test Item Value Reference Range Interpretation [...] = 3257) 2+ Negative - Negati ve [facility] URINALYSIS W/O SPECIFIC [id number] 18:52:00* Test Item Value Reference Range Interpretation [...] = 3257) 2+ Negative - Negati ve [facility] URINALYSIS W SPECIFIC [id number] 00:47:00* Test Item Value Reference Range Interpretation [...] development and interpretation of all internal controls [facility] URINALYSIS W SPECIFIC [id number] 00:47:00* Test Item Value Reference Range Interpretation [...] development and interpretation of all internal controls [facility] [id number] 00:46:00* Test Item Value Reference Range Interpretation Comme nts POCT PREG (test code = 1605) Negative On board controls acceptable with C Line (test code = 3574) Yes POCT PREG LOT # (test code = 3575) POCT PREG TEST DATE ( test code = 3576) [facility] [id number] 00:46:00* Test Item Value Reference Range Interpretation Comme nts POCT PREG (test code = 1605) Negative On board controls acceptable with C Line (test code = 3574) Yes POCT PREG LOT # (test code = 3575) POCT PREG TEST DATE ( test code = 3576) [facility] URINALYSIS W/O SPECIFIC [id number] 19:44:00* Test Item Value Reference Range Interpretation [...] = 3257) trace Negative - Negati ve [facility] URINALYSIS W/O SPECIFIC [id number] 19:44:00* Test Item Value Reference Range Interpretation [...] = 3257) trace Negative - Negati ve [facility] TEST, THINPREP, [id number] 09:31:01 * Test Item Value Reference Range Interpretation Comme [facility] SOURCE: (test code = 8001) Cervical/Endo cervical SLIDES: (test code = 8011) 1 LMP: (test code = 8021) 01/28/2021 SPECIMEN ADEQUACY: (test code = 08395) (NOTE) Satisfactory for evaluation. Endocervical cells/transformation zone component present. INTERPRETATION: (test code = 98351) NILM/NO EPITH. ABNORMALITY;S EE BELOW ---- NEGATIVE FOR INTRAEPITHELIAL LESION OR MALIGNANCY (NILM) - BUSINESS SYSTEMS ADMINISTRATOR: (test code = 8101) MEANUEL Balderrama(ASC P) QC TECHNOLOGIST: (test code = 8111) EMANUEL GUALLPA(ASCP) LOCATION: (test code = 17345) (NOTE) Specimens proces sed and interpreted at [facility], [address] [place] [id number], , CLIA: [id number] CPT: (test code = 8140) (NOTE) 60819 UNLESS OTH ERWISE INDICATED, COMPUTER AIDED AND BUSINESS SYSTEMS ADMINISTRATOR SCREENING PERFORMED. The Pap test is a screening test with an inherent, but low probability of error. Your patient should be reminded to consult you immediately if she experiences any suspicious signs or symptoms, regardless of her Pap test result. An alternate report format containing images or consolidated prior Pap history is available as applicable. PAP TEST, THINPREP, [id number] 00:00:00* Test Item Value Reference Range Interpretation Comme nts SOURCE: (test code = 8001) Cervical/Endocervical SLIDES: (test code = 8011) 1 LMP: (test code = 8021) 01/28/2021 SPECIMEN ADEQUACY: (test code = 37046) (NOTE) INTERPRETATION: (test code = 77814) NILM/NO EPITH. ABNORMALITY;SEE BELOW BUSINESS SYSTEMS ADMINISTRATOR: (test code = 8101) EMANUEL Balderrama(ASCP) QC TECHNOLOGIST: (test code = 8111) EMANUEL GUALLPA(ASCP) LOCATION: (test code = 16595) (NOTE) CPT: (test code = 8140) (NOTE) HPV HIGH RISK WITH GENOTYPE, [id number] 13:17:15* Test Item Value Reference Range Interpretation Comme nts HPV HIGH RISK INTERP (test code = 49578) NEGATIVE NEGATIVE HPV 16 (test code = 41001) NEGATIVE HPV 18 (test code = 22922) NEGATIVE HPV, HR, OTHER GENOTYPES (test code = 68515) NEGATIVE Testing methodol ogy is real-time PCR utilizing hydrolysis probes with the [employer] 4800 system. The test individually detects genotypes 16 and 18, as well as the other 12 high risk types (31,33,35,39,45,51,52,56 ,58,59,66,68). The expected result is negative. A negative result does not rule out the presence of HPV not included in the genotype set, a low level of infection or specimen sampling error. UNLESS OTHERWISE INDICATED, ALL TESTING PERFORMED [facility] [employer] [address] [place] [address] RAISE DRILL OPERATOR: JOSEPH VAZQUEZ M.D. CLIA NUMBER [id number] [facility] [place]. [id number] HPV HIGH RISK WITH GENOTYPE, [id number] 00:00:00* Test Item Value Reference Range Interpretation Comme nts HPV HIGH RISK INTERP (test c ode = 05325) NEGATIVE HPV 16 (test code = 10018) NEGATIVE HPV 18 (test code = 73438) NEGATIVE HPV, HR, OTHER GENOTYPES (te st code = 07360) NEGATIVE PAP TEST, THINPREP, [id number] 00:00:00* Test Item Value Reference Range Interpretation Comme nts SOURCE: (test code = 8001) Cervical/Endocervical SLIDES: (test code = 8011) 2 LMP: (test code = 8021) 01/02/2021 SPECIMEN ADEQUACY: (test code = 08779) (NOTE) INTERPRETATION: (test code = 26584) UNSATISFACTORY; SEE BELOW OTHER COMMENTS: (test code = 8081) (NOTE) BUSINESS SYSTEMS ADMINISTRATOR: (test code = 8101) EMANUEL ROJAS(ASCP) QC TECHNOLOGIST: (test code = 8111) EMANUEL Peck(ASCP)IAC LOCATION: (test code = 07016) (NOTE) CPT: (test code = 8140) (NOTE) TRICHOMONAS, THINPREP, [id number] 00:00:00* Test Item Value Reference Range Interpretation Comme nts TRICHOMONAS, AMPLIFIED (test code = 46357) NEGATIVE GC AND CHLAMYDIA AMPLIFIED, [id number] 00:00:00* Test Item Value Reference Range Interpretation Comme nts GONORRHEA, TMA (test code = 00629) NEGATIVE CHLAMYDIA, TMA (test code = 39978) NEGATIVE HPV HIGH RISK WITH GENOTYPE, [id number] 00:00:00* Test Item Value Reference Range Interpretation Comme nts HPV HIGH RISK INTERP (test c ode = 63712) POSITIVE HPV 16 (test code = 78634) NEGATIVE HPV 18 (test code = 74683) NEGATIVE HPV, HR, OTHER GENOTYPES (te st code = 59638) POSITIVE VAGINAL PATHOGENS DNA [id number] 00:00:00* Test Item Value Reference Range Interpretation Comme nts CONNIE SPECIES (test code = ) POSITIVE G. VAGINALIS (test code = 86419) NEGATIVE T. VAGINALIS (test code = 21082) NEGATIVE [id number] 00:00:00* Test Item Value Reference Range Interpretation Comme nts RPR RESULT (test code = 3501) NON-REACTIVE RPR TITER (test code = 3500) NOT INDIC. TITER HIV AB/AG COMBO RFLX [id number] 00:00:00* Test Item Value Reference Range Interpretation Comme nts HIV 1/2 4TH GEN, RFLX CONF ( test code = 3514) NON-REACTIVE ACUTE HEPATITIS [id number] 00:00:00* Test Item Value Reference Range Interpretation Comme nts HEPATITIS A IgM (test code = 97291) NON-REACTIVE HEPATITIS B CORE IgM (test c ode = 4644) NON-REACTIVE HEPATITIS B SURF AG (test co de = 2739) NON-REACTIVE HEPATITIS C ANTIBODY (test c ode = 4675) NON-REACTIVE INTERPRETATION HEPATITIS A: (test code = 2552) (NOTE) INTERPRETATION HEPATITIS B: (test code = 41281) (NOTE) INTERPRETATION HEPATITIS C: (test code = 73640) (NOTE) VAGINAL PATHOGENS DNA [id number] 00:00:00* Test Item Value Reference Range Interpretation Comme nts CONNIE SPECIES (test code = 75181) NEGATIVE G. VAGINALIS (test code = 81379) NEGATIVE T. VAGINALIS (test code = 29986) NEGATIVE SARS-CoV-2 (COVID-19) by RT-PCR (HIGH RISK)2020-01-02 00:00:00* Test Item Value Reference Range Interpretation Comme nts SARS-CoV-2 INTERPRETATION (t est code = 98423) POSITIVE SOURCE (test code = 29008) NOT SPECIFIED PAP TEST, THINPREP, [id number] 00:00:00* Test Item Value Reference Range Interpretation Comme nts SOURCE: (test code = 8001) Cervical/Endo cervi driss SLIDES: (test code = 8011) 1 LMP: (test code = 8021) 10/28/2019 SPECIMEN ADEQUACY: (test code = 01323) (NOTE) INTERPRETATION: (test code = 25280) LSIL/EPITH. ABNORMALITY; SEE BELOW OTHER COMMENTS: (test code = 8081) (NOTE) BUSINESS SYSTEMS ADMINISTRATOR: (test code = 8101) EMANUEL Sandy (ASCP) PATHOLOGIST INTERPRETATION BY: (test code = 8122) Nolan Shahid M.D. LOCATION: (test code = 20307) (NOTE) CPT: (test code = 8140) (NOTE) TRICHOMONAS, VAG SWAB, [id number] 00:00:00* Test Item Value Reference Range Interpretation Comme nts TRICHOMONAS, SIMPLESWAB (test code = 17020) TEST NOT PERFORMED GC AND CHLAMYDIA AMPLIFIED, [id number] 00:00:00* Test Item Value Reference Range Interpretation Comme nts GONORRHEA, TMA (test code = 99050) NEGATIVE CHLAMYDIA, TMA (test code = 15499) NEGATIVE VAGINAL PATHOGENS DNA [id number] 00:00:00* Test Item Value Reference Range Interpretation Comme nts CONNIE SPECIES (test code = 15572) NEGATIVE G. VAGINALIS (test code = 72610) NEGATIVE T. VAGINALIS (test code = 64494) NEGATIVE HPV HIGH RISK WITH GENOTYPE, [id number] 00:00:00* Test Item Value Reference Range Interpretation Comme nts HPV HIGH RISK INTERP (test c ode = 19495) POSITIVE HPV 16 (test code = 88525) NEGATIVE HPV 18 (test code = 66442) NEGATIVE HPV, HR, OTHER GENOTYPES (te st code = 87850) POSITIVE HIV AB/AG COMBO RFLX [id number] 00:00:00* Test Item Value Reference Range Interpretation Comme nts HIV 1/2 4TH GEN, RFLX CONF ( test code = 3514) NON-REACTIVE [id number] 00:00:00* Test Item Value Reference Range Interpretation Comme nts RPR RESULT (test code = 3501) NON-REACTIVE RPR TITER (test code = 3500) NOT INDIC. TITER [facility]AL[facility] ONLY - VAGINAL PATHOGENS BY DNA [id number] 19:29:00* Test Item Value Reference Range Interpretation Comme nts Trichomonas vaginalis (test code = 7090587368) Negative Negative Gardnerella vaginalis (test code = 7620604879) Negative Negative Connie species (test code = 4425585174) Positive Negative A Lab Interpretation (test cod e = 43143-3) [facility] BY DNA PROBE 2019-04-03 19:29:00* Test Item Value Reference Range Interpretation Comme nts Trichomonas vaginalis (test code = 1099260810) Negative Negative Gardnerella vaginalis (test code = 2503630043) Negative Negative Connie species (test code = 0638353673) Positive Negative A Lab Interpretation (test cod e = 46014-6) [facility] CHLAMYDIA AMPLIFIED [id number] 17:07:00* Test Item Value Reference Range Interpretation Comme nts C. trachomatis Nucleic Acid (test code = 15198-8) Negative Negative N. gonorrhoeae Nucleic Acid (test code = 03688-2) Negative Negative Lab Interpretation (test cod e = 42875-4) [facility] CHLAMYDIA AMPLIFIED [id number] 17:07:00* Test Item Value Reference Range Interpretation Comme nts C. trachomatis Nucleic Acid (test code = 51353-1) Negative Negative N. gonorrhoeae Nucleic Acid (test code = 57604-2) Negative Negative Lab Interpretation (test cod e = 48878-1) Normal [facility] (A1C)2019-04-03 08:35:00* Test Item Value Reference Range Interpretation Comme nts HGB A1C (test code = 4548-4) 5.8 % 4-6 Lab Interpretation (test cod e = 66392-9) [facility]C)2019-04-03 08:35:00* Test Item Value Reference Range Interpretation Comme nts HGB A1C (test code = 4548-4) 5.8 % 4-6 Lab Interpretation (test cod e = 73096-3) [facility]30 19:28:00* Test Item Value Reference Range Interpretation Comme nts APPEARANCE (test code = 7526526733) Clear Clear COLOR (test code = 5056143966) Straw Yellow A PH (test code = 0673163582) 4.8-8.0 SP GRAVITY (test code = 9457866016) 1.003-1.030 GLU U QUAL (test code = 1246491583) Normal Normal BLOOD (test code = 0973222245) 1+ Negative A KETONES (test code = 0050009998) 5 mg/dL Negative A PROTEIN (test code = 2887-8) Negative Negative UROBILIN (test code = 3477773148) Normal Normal BILIRUBIN (test code = 6370218217) Negative Negative NITRITE (test code = 2003265808) Negative Negative LEUK GENEVA (test code = 8657761228) Negative Negative RBC/HPF (test code = 1196962508) <1 See_Comment [Automated [employer]] The system which generated this result transmitted reference range: 0 - 3 HPF. The reference range was not used to interpret this result as normal/abnormal. WBC/HPF (test code = 3534493115) See_Comment [[employer]] The system which generated this result transmitted reference range: 0 - 5 HPF. The reference range was not used to interpret this result as normal/abnormal. BACTERIA (test code = 0215056030) Few Negative A SQ EPITH (test code = 9849291553) See_Comment H [[employer]] The system which generated this result transmitted reference range: <=2 HPF. The reference range was not used to interpret this result as normal/abnormal. Lab Interpretation (test code = 35782-9) [facility] 19:28:00* Test Item Value Reference Range Interpretation Comme nts APPEARANCE (test code = 4489529357) Clear Clear COLOR (test code = 3937401467) Straw Yellow A PH (test code = 5409862374) 4.8-8.0 SP GRAVITY (test code = 8417580277) 1.003-1.030 GLU U QUAL (test code = 0275319271) Normal Normal BLOOD (test code = 0506611558) 1+ Negative A KETONES (test code = 0686702207) 5 mg/dL Negative A PROTEIN (test code = 2887-8) Negative Negative UROBILIN (test code = 6704296898) Normal Normal BILIRUBIN (test code = 8688231068) Negative Negative NITRITE (test code = 9427763210) Negative Negative LEUK GENEVA (test code = 9194618251) Negative Negative RBC/HPF (test code = 1314426651) <1 See_Comment [Automated messa ge] The system which generated this result transmitted reference range: 0 - 3 HPF. The reference range was not used to interpret this result as normal/abnormal. WBC/HPF (test code = 6059776755) See_Comment [Automated messa ge] The system which generated this result transmitted reference range: 0 - 5 HPF. The reference range was not used to interpret this result as normal/abnormal. BACTERIA (test code = 9977369963) Few Negative A SQ EPITH (test code = 5192804781) See_Comment H [Automated messa ge] The system which generated this result transmitted reference range: <=2 HPF. The reference range was not used to interpret this result as normal/abnormal. Lab Interpretation (test code = 52418-4) Abnormal [facility] URINALYSIS W SPECIFIC [id number] 16:02:00* Test Item Value Reference Range Interpretation [...] internal controls Lab Interpretation (test code = 52579-2) [facility]normal [facility] SPECIFIC [id number] 16:02:00* Test Item Value Reference Range Interpretation [...] internal controls Lab Interpretation (test code = 41244-1) Abnormal [facility] AND [id number] 00:00:00* Test Item Value Reference Range Interpretation Comme nts SPECIMEN SOURCE (test code = 82544) VAGINAL HERPES CULTURE (test code = 3533) POSITIVE HERPES SIMPLEX TYPE I (test code = 15109) NEGATIVE HERPES SIMPLEX TYPE II (test code = 95347) POSITIVE VAGINAL PATHOGENS DNA [id number] 00:00:00* Test Item Value Reference Range Interpretation Comme nts CONNIE SPECIES (test code = 76219) NEGATIVE G. VAGINALIS (test code = 89347) NEGATIVE T. VAGINALIS (test code = 97947) NEGATIVE COMPREHENSIVE METABOLIC [id number] 00:00:00* Test Item Value Reference Range Interpretation Comme nts GLUCOSE (test code = 2217) 82 MG/DL BUN (test code = 2208) 14 MG/DL CREATININE (test code = 2214) 0.57 MG/DL eGFR AMER. (test cod e = 75875) 137 ML/MIN/1.73 eGFR NON- AMER. (test code = 74037) 118 ML/MIN/1.73 CALC BUN/CREAT (test code = [...] = 2219) 21 U/L PAP TEST, THINPREP, [id number] 00:00:00* Test Item Value Reference Range Interpretation Comme nts SOURCE: (test code = 8001) Cervical/Endocervical SLIDES: (test code = 8011) 1 LMP: (test code = 8021) 12/23/2017 SPECIMEN ADEQUACY: (test code = 21883) (NOTE) INTERPRETATION: (test code = 26799) NILM/NO EPITH. ABNORMALITY;SEE BELOW BUSINESS SYSTEMS ADMINISTRATOR: (test code = 8101) RAVINDER DÍAZ,CT(ASCP) QC TECHNOLOGIST: (test code = 8111) Adebayo New,SCT(ASCP)IAC LOCATION: (test code = 37330) (NOTE) CPT: (test code = 8140) (NOTE) CBC W/AUTO [id number] 00:00:00* Test Item Value Reference Range Interpretation [...] 1015) 326 K/UL GC AND CHLAMYDIA AMPLIFIED, [id number] 00:00:00* Test Item Value Reference Range Interpretation Comme nts GONORRHEA, TMA (test code = 26154) NEGATIVE CHLAMYDIA, TMA (test code = 79337) NEGATIVE [id number] 00:00:00* Test Item Value Reference Range Interpretation Comme nts RPR RESULT (test code = 3501) NON-REACTIVE RPR TITER (test code = 3500) NOT INDIC. TITER HIV AB/AG COMBO RFLX [id number] 00:00:00* Test Item Value Reference Range Interpretation Comme [facility] HIV 1/2 4TH GEN, RFLX CONF ( test code = 3514) NON-REACTIVE HPV HIGH RISK WITH GENOTYPE, [id number] 00:00:00* Test Item Value Reference Range Interpretation Comme nts HPV HIGH RISK INTERP (test c ode = 65061) NEGATIVE HPV 16 (test code = 26240) NEGATIVE HPV 18 (test code = 60100) NEGATIVE HPV, HR, OTHER GENOTYPES (te st code = 27656) NEGATIVE ACUTE HEPATITIS [id number] 00:00:00* Test Item Value Reference Range Interpretation Comme nts HEPATITIS A IgM (test code = 48429) NON-REACTIVE HEPATITIS B CORE IgM (test c ode = 4644) NON-REACTIVE HEPATITIS B SURF AG (test co de = 2739) NON-REACTIVE HEPATITIS C ANTIBODY (test c ode = 4675) NON-REACTIVE HCV INDEX (test code = 32027) 0.05 INTERPRETATION HEPATITIS A: (test code = 2552) (NOTE) INTERPRETATION HEPATITIS B: (test code = 39706) (NOTE) INTERPRETATION HEPATITIS C: (test code = 12526) (NOTE) VAGINAL PATHOGENS DNA PANEL [ADDED]2018-01-27 00:00:00* Test Item Value Reference Range Interpretation Comme nts CONNIE SPECIES (test code = 66093) POSITIVE G. VAGINALIS (test code = 37791) POSITIVE T. VAGINALIS (test code = 77662) NEGATIVE Notes Date/Time Note Provider Source 2023-07-11 09:54:24 Patient returned call, provider message was given to patient, patient verbalized understanding Elizabeth Pascual [facility] 2023-07-11 09:44:26 Attempted to contact patient with no answer, Voicemail left at this time with clinic phone number and instructed patient to return call. PSS, please advise patient she needs to come in to sign medical release form. Thanks! Autumn Kaur RN [facility] 2023-07-11 09:19:29 Is she looking for operative note? If that s the case, medical records is the best place to get this. [facility]-SURGERY STAFF [facility] 2023-07-11 09:01:58 Pt had surgery with Dr. Sow 12/2022. Pt stated during surgery Dr. Sow found that she had a perforated colon, pt is wanting a letter with this finding stated. Please assist. Karon Guy [facility] 2023-04-04 14:46:22 I can see her anytime she wants. [facility]-SURGERY STAFF [facility] 2022-08-28 09:03:50 Formatting of this n ote might be different from the original. Rx sent to [facility] 2022-08-27 20:40:04 Formatting of this n ote might be different from the original. Harmony Ritter is a 41 year old female Patient calling to have medications called in [facility] [phone] fluconazole (DIFLUCAN) 150 mg tablet phenazopyridine (PYRIDIUM) 200 mg tablet May Cruz [facility] 2022-08-27 19:40:00 Addended by: RAJ STORY on: 08/27/2022 08:59 PM Modules accepted: Orders [facility]
[2024-06-06 18:45] LABS: Specific Gravity 1.012 (1.005-1.030); Urine Bacteria <20 /HPF (<20); Urine Bilirubin NEGATIVE (Negative); Urine Blood 1+ (Negative); Urine Clarity Extremely Turbid (Clear); Urine Color Light-Yellow (Yellow); Urine Crystals Unidentified Few /HPF (None Seen); Urine Culture Reflex Order REFLEXED; Urine Glucose NEGATIVE (Negative); Urine Ketones NEGATIVE (Negative); Urine Microscopic Reflex YN ORDER UMIC; Urine Mucus Slight /HPF (None Seen); Urine Nitrite NEGATIVE (Negative); Urine Protein TRACE (Negative); Urine Urobilinogen Normal (Normal); Urine pH 5.5 (5.0-7.0)
[2024-06-06] MEDS ORDERED: NA CHLORIDE 0.9% 1,000 ML ONE (19:39)
[2024-06-06] MEDS ORDERED: ONDANSETRON 4 MG/2 ML VIAL ONE (19:39)
[2024-06-06] MEDS ORDERED: MORPHINE 4 MG/ML SYR ONE (19:39)
[2024-06-06 19:52] LABS: Absolute Basophils 0.1 K/uL (0-0.5); Absolute Eosinophils 0.3 K/uL (0-0.5); Absolute Lymphocytes (CBC) 3.9 K/uL (0.7-4.9); Absolute Neutrophil 9.6 K/uL (1.8-8.0); Basophils % 0.7 % (0-1.3); Eosinophils % 2.2 % (0-4.4); Hematocrit 40.4 % (36.0-45.0); Hemoglobin 13.6 g/dL (12.0-15.0); Lymphocytes % 25.9 % (15.3-44.8); MCH 29.1 pg (27.0-35.0); MCHC 33.6 g/dL (32.0-36.0); MCV 86.8 fL (80-100); MPV 8.5 fL (7.6-11.3); Monocytes % 6.8 % (3.3-12.3); Neutrophils % 64.4 % (41.7-73.7); Platelets 331 thou/uL (152-406); RBC Red Blood Cell Count 4.66 M/uL (3.86-4.86); Red Cell Distribution Width 13.6 % (12.1-15.2)
[2024-06-06 20:08] LABS: Albumin 4.2 g/dL (3.4-5.0); Bilirubin Total 0.5 mg/dL (0.2-1.0); Globulin 4.1 g/dL (2.3-3.5); Protein, Total 8.3 g/dL (6.4-8.2)
--- NOTE | 2024-06-06 20:13 | RAD REPORT ---
EXAMINATION: ONE VIEW CHEST XR CLINICAL INDICATION: ABDOMINAL DISTENTION TECHNIQUE: Frontal chest projection is submitted. Examination is limited by patient positioning and t echnique. COMPARISON: 05/14/2022 FINDINGS: The lungs are well inflated and clear. The heart is upper limit of normal in size. No displaced fract ures identified. IMPRESSION: No acute intrathoracic abnormalities.
--- NOTE | 2024-06-06 21:24 | RAD REPORT ---
EXAMINATION: CT ABDOMEN AND PELVIS WITH CONTRAST CLINICAL INDICATION: ABD PAIN TECHNIQUE: CT abdomen and pelvis was performed, after the administration of IV contrast, [facility] Axial, sagittal and coronal reconstructions were obtained. One or more of the following dose reduction techniques were used: Automated exposure control, adjustment of the mA and k V according to patient size, and iterative reconstruction. Unless otherwise specified, incidental findings do not require dedicated imaging follow-up. COMPARISON: 04/01/2023 FINDINGS: LOWER CHEST: The visualized lung bases are clear. LIVER: Diffuse fatty liver is present. 19 mm low-density lesion left lobe of the liver likely a benig n cyst. Cholecystectomy clips. SPLEEN: Normal size. No focal lesion. PANCREAS: No mass, ductal dilation, or hernan-pancreatic fluid. ADRENALS: Normal; no mass. KIDNEYS: Normal size and contour. No hydronephrosis. GASTROINTESTINAL TRACT: Moderate ventral hernia upper abdomen is seen. Multiple dilated small bowel l oops in the left abdomen suggestive of partial mechanical small bowel obstruction. APPENDIX: Normal appendix. LYMPH NODES: No lymphadenopathy. MUSCULOSKELETAL: Mild multilevel spinal degenerative changes. ADDITIONAL FINDINGS: Small fat-containing umbilical hernia. IMPRESSION: Findings are suspicious for developing partial mechanical small bowel obstruction. Moderate midline v entral hernia with rectus muscle diastases.
--- NOTE | 2024-06-06 21:55 | ER ---
Nurse's Notes [facility] Name: Harmony Garner Age: 43 yrs Sex: Female : 1980 Arrival Date: 06/06/2024 Time: 16:00 Bed 17 Private MD: Diagnosis: Partial Small Bowel Obstruction Presentation: 06/06 16:55 Chief complaint: Patient states: abd pain since yesterday, I ate something that I think iw was bad, started feeling a lot of gas and I have a hernia and it was hurting me , + nausea, no diarrhea or vomiting. Coronavirus screen: At this time, the client does not indicate any symptoms associated with coronavirus-19. Ebola Screen: No symptoms or risks identified at this time. Initial Sepsis Screen: Does the patient meet any 2 criteria? No. Patient's initial sepsis screen is negative. Does the patient have a suspected source of infection? No. Patient's initial sepsis screen is negative. Risk Assessment: Do you want to hurt yourself or someone else? Patient reports no desire to harm self or others. Onset of symptoms was June 05, 2024. 16:55 Method Of Arrival: Ambulatory iw 16:55 Acuity: JUSTEN 3 iw Historical: - Allergies: 16:57 No Known Allergies; iw - Home Meds: 16:57 pantoprazole oral daily [Active]; iw - PMHx: 16:57 GESTASIONAL DIABETES; SEPSIS FROM BOWEL PERF; iw - PSHx: 16:57 section; hysterectomy; iw - Immunization history:: Adult Immunizations up to date. - Infectious Disease History:: Denies. - Social history:: Smoking status: Patient denies any tobacco usage or history of. Screenin:34 [facility] ED Fall Risk Assessment (Adult) History of falling in the last 3 months, me1 including since admission No falls in past 3 months (0 pts) Confusion or Disorientation No (0 pts) Intoxicated or Sedated No (0 pts) Impaired Gait No (0 pts) Mobility Assist Device Used No (0 pt) Altered Elimination No (0 pt) Score/Fall Risk Level 0 - 2 = Low Risk Maintained a safe environment, Provided non-skid footwear, Hourly rounding (assess needs \T\ fall precautionary measures) done. Abuse screen: Denies threats or abuse. Nutritional screening: No deficits noted. Tuberculosis screening: No symptoms or risk factors identified. Assessment: 19:34 General: Appears uncomfortable, well groomed, well developed, well nourished, Behavior me1 is calm, cooperative, appropriate for age, Reports abd pain since yesterday, I ate something that I think was bad, started feeling a lot of gas and I have a hernia and it was hurting me , + nausea, no diarrhea or vomiting. Pain: Complains of pain in abdomen Pain does not radiate. Pain currently is 4 out of 10 on a pain scale. Quality of pain is described as crampy, Pain began 1 day ago. Is continuous. Neuro: Level of Consciousness is awake, alert, obeys commands, Oriented to person, place, time, situation, Appropriate for age. Cardiovascular: Patient's skin is warm and dry. Respiratory: Airway is patent Respiratory effort is even, unlabored, Respiratory pattern is regular, symmetrical. GI: Abdomen is non-distended, Bowel sounds present X 4 quads. Abd is soft X 4 quads. : No signs and/or symptoms were reported regarding the genitourinary system. EENT: No signs and/or symptoms were reported regarding the EENT system. Derm: Skin is intact, is healthy with good turgor, Skin is pink, warm \T\ dry. Musculoskeletal: No signs and/or symptoms reported regarding the musculoskeletal system. 22:05 Reassessment: Patient appears in no apparent distress at this time. Patient and/or kj2 family updated on plan of care and expected duration. Pain level reassessed. Patient is alert, oriented x 3, equal unlabored respirations, skin warm/dry/pink. 23:05 Reassessment: Patient appears in no apparent distress at this time. Patient and/or kj2 family updated on plan of care and expected duration. Pain level reassessed. Patient is alert, oriented x 3, equal unlabored respirations, skin warm/dry/pink. 06/07 00:05 Reassessment: Patient appears in no apparent distress at this time. Patient and/or kj2 family updated on plan of care and expected duration. Pain level reassessed. Patient is alert, oriented x 3, equal unlabored respirations, skin warm/dry/pink. 01:05 Reassessment: Patient appears in no apparent distress at this time. Patient and/or kj2 family updated on plan of care and expected duration. Pain level reassessed. Patient is alert, oriented x 3, equal unlabored respirations, skin warm/dry/pink. Vital Signs: 06/06 16:55 BP 127 / 82; Pulse 76; Resp 16; Temp 98.6; Pulse Ox 96% ; Weight 76.66 kg; Height 4 ft. iw 11 in. ; Pain 4/10; 20:00 BP 123 / 60; Pulse 65; Resp 16; Pulse Ox 99% ; me1 21:00 BP 138 / 79; Pulse 74; Resp 16; Pulse Ox 98% ; me1 22:05 BP 115 / 64; Pulse 72; Resp 18; Pulse Ox 100% ; kj2 06/07 00:05 BP 144 / 81; Pulse 66; Resp 18; Pulse Ox 100% ; kj2 06/06 16:55 Body Mass Index 34.13 (76.66 kg, 149.86 cm) iw 06/06 16:55 Pain Scale: Adult iw ED Course: 06/06 16:03 Patient arrived in ED. im 16:31 Talat Canchola PA is PHCP. cp 16:31 Talat Toledo MD is Attending Physician. cp 16:57 Triage completed. iw 16:57 Arm band placed on. iw 19:33 Belkys Dennison, RN is Primary Nurse. me1 19:34 Patient has correct armband on for positive identification. Bed in low position. Call me1 light in reach. Side rails up X2. Provided Education on: POC. Verbalized understanding.. Client placed on continuous cardiac and pulse oximetry monitoring. NIBP monitoring applied. Pulse ox on. NIBP on. 19:34 No provider procedures requiring assistance completed. me1 19:45 Inserted 20g IV inserted by previous RN. kj2 19:48 CBC with Diff Sent. me1 19:48 CMP Sent. me1 19:48 Lipase Sent. me1 20:09 XRAY Chest (1 view) In Process Unspecified. EDMS 21:16 CT Abd/Pelvis - IV Contrast Only In Process Unspecified. EDMS 21:52 Nelson Enriquez MD is Hospitalizing Provider. cp 22:03 First set of blood cultures drawn by or. me1 22:05 Report received from [email or web address]. kj2 22:06 Lactate w/ 2H reflex if indic. Sent. me1 22:06 Blood Culture Adult (2) Sent. me1 22:10 Second set of blood cultures drawn by me. me1 06/07 01:37 Patient admitted, IV remains in place. intact, No redness/swelling at site. rg5 Administered Medications: 06/06 19:53 Drug: morphine IVP or IV 4 mg IVP once over 4 mins Route: IVP; Infused Over: 4 mins; me1 Site: right antecubital; 21:42 Follow up: Response: No adverse reaction; Pain is decreased me1 19:53 Drug: Ondansetron IVP 4 mg IVP once; over 2 minutes Route: IVP; Site: right antecubital;me1 21:42 Follow up: Response: No adverse reaction; Nausea is decreased me1 19:53 Drug: NS 0.9% IV 1000 ml IV at 1000 ml once; to be given as a bolus over 60 minutes me1 Route: IV; Rate: 1000 ml; Site: right antecubital; 21:42 Follow up: Response: No adverse reaction; IV Status: Completed infusion; IV Intake: me1 1000ml 22:37 Drug: metroNIDAZOLE IVPB 500 mg 100 ml IVPB once over 30 mins Volume: 100 ml; Route: kj2 IVPB; Infused Over: 30 mins; Site: right antecubital; 23:33 Follow up: IV Status: Completed infusion; IV Intake: 100ml kj2 23:34 Drug: Ciprofloxacin IVPB 400 mg 200 ml IVPB once over 60 mins Volume: 200 ml; Route: kj2 IVPB; Infused Over: 60 mins; Site: right antecubital; 06/07 00:39 Follow up: IV Status: Completed infusion; IV Intake: 200ml kj2 Medication: 06/06 19:34 VIS not applicable for this client. me1 Intake: 21:42 IV: 1000ml; Total: 1000ml. me1 23:33 IV: 100ml; Total: 1100ml. kj2 06/07 00:39 IV: 200ml; Total: 1300ml. kj2 Outcome: 06/06 21:54 Decision to Hospitalize by Provider. cp 06/07 01:36 Admitted to Med/surg accompanied by tech, via wheelchair, rg5 Condition: stable Discharge instructions given to Instructed on the need for admit, 01:37 Patient left the ED. rg5 Signatures: Dispatcher MedHoRe Lyle, RN RN iw Talat Canchola PA PA cp Mendoza, Itzel im Eddleman, Michelle, RN RN me1 Luis Fernando Miller RN RN rg5 Emy Gomez RN RN kj2 Corrections: (The following items were deleted from the chart) 06/06 19:34 16:55 Chief complaint: Patient states: abd pain since yesterday, I ate something that I me1 think was bad, started feeling a lot of gas and I have a hernia and it was hurting me , + nausea, no diarrhea or vomiting iw
--- NOTE | 2024-06-06 21:55 | EDPHYS ---
Physician Documentation [facility] Name: Harmony Garner Age: 43 yrs Sex: Female : 1980 Arrival Date: 06/06/2024 Time: 16:00 Bed 17 Private MD: ED Physician Talat Toledo HPI: 06/06 17:20 This 43 yrs old Female presents to ER via Ambulatory with complaints of cp Abdominal Pain. 17:20 The patient presents with abdominal pain left mid abdomen. Onset: The symptoms/episode cp began/occurred yesterday. 17:20 Associated signs and symptoms: Pertinent positives: nausea, Pertinent negatives: chest cp pain, constipation, diarrhea, fever, vomiting, chest pain. 17:20 The symptoms are described as constant. Severity of pain: in the emergency department cp the pain is unchanged despite home interventions. Historical: - Allergies: 16:57 No Known Allergies; iw - Home Meds: 16:57 pantoprazole oral daily [Active]; iw - PMHx: 16:57 GESTASIONAL DIABETES; SEPSIS FROM BOWEL PERF; iw - PSHx: 16:57 section; hysterectomy; iw - Immunization history:: Adult Immunizations up to date. - Infectious Disease History:: Denies. - Social history:: Smoking status: Patient denies any tobacco usage or history of. ROS: 17:25 Constitutional: Negative for body aches, chills, fever, cp 17:25 Eyes: Negative for injury, pain, redness, and discharge, cp 17:25 ENT: Negative for drainage from ear(s), ear pain, sore throat, difficulty swallowing, difficulty handling secretions, 17:25 Cardiovascular: Negative for chest pain, palpitations, 17:25 Respiratory: Negative for cough, shortness of breath, wheezing, 17:25 Abdomen/GI: Positive for abdominal pain, nausea, Negative for vomiting, diarrhea, constipation, 17:25 Back: Negative for injury or acute deformity, pain at rest, pain with movement, 17:25 Neuro: Negative for altered mental status, dizziness, headache, weakness, 17:25 All other systems are negative, Exam: 17:30 Constitutional: The patient appears in no acute distress, alert, awake, non-toxic, well cp developed, well nourished, uncomfortable, 17:30 Head/Face: Normocephalic, atraumatic. cp 17:30 Eyes: Periorbital structures: appear normal, Conjunctiva: normal, no exudate, no injection, Sclera: no appreciated abnormality, Lids and lashes: appear normal, bilaterally, 17:30 ENT: External ear(s): are unremarkable, Nose: is normal, Mouth: Lips: moist, Oral mucosa: moist, Posterior pharynx: Airway: no evidence of obstruction, patent, 17:30 Chest/axilla: Inspection: normal, 17:30 Cardiovascular: Rate: normal, Rhythm: regular, 17:30 Respiratory: the patient does not display signs of respiratory distress, Respirations: normal, no use of accessory muscles, no retractions, labored breathing, is not present, Breath sounds: are clear throughout, no decreased breath sounds, no stridor, no wheezing, 17:30 Abdomen/GI: Bowel sounds: active, all quadrants, Palpation: soft, in all quadrants, moderate abdominal tenderness, in the left upper quadrant and left lower quadrant, rebound tenderness, is not appreciated, voluntary guarding, is elicited in the left upper quadrant and left lower quadrant, Hernia: noted in the left ventral, tenderness, that is moderate, 17:30 Back: CVA tenderness, is absent, 17:30 Neuro: Orientation: to person, place \T\ time. Mentation: is normal, Motor: moves all fours, strength is normal, Sensation: is normal, Vital Signs: 16:55 BP 127 / 82; Pulse 76; Resp 16; Temp 98.6; Pulse Ox 96% ; Weight 76.66 kg; Height 4 ft. iw 11 in. ; Pain 4/10; 20:00 BP 123 / 60; Pulse 65; Resp 16; Pulse Ox 99% ; me1 21:00 BP 138 / 79; Pulse 74; Resp 16; Pulse Ox 98% ; me1 22:05 BP 115 / 64; Pulse 72; Resp 18; Pulse Ox 100% ; kj2 05 00:05 BP 144 / 81; Pulse 66; Resp 18; Pulse Ox 100% ; kj2 04 16:55 Body Mass Index 34.13 (76.66 kg, 149.86 cm) iw 04 16:55 Pain Scale: Adult iw MDM: 06/06 17:06 Medical Screening Exam initiated cp 18:00 Differential diagnosis: bowel obstruction, pancreatitis, Peptic Ulcer Disease, Perf. cp Duodenal Ulcer, Perf. Gastric Ulcer, Pyelonephritis, Ureterolithiasis, urinary tract infection. 21:40 ED course: consult with general surgery, DR Sol, due to past surgical hx of cp cholecystectomy who will consult for surgery. 22:00 Data reviewed: vital signs, nurses notes, lab test result(s), radiologic studies, CT cp scan, and as a result, I will admit patient. 22:00 Management of patient was discussed with the following: Hospitalist: DR Oliver will admit cp after discussion. I considered the following discharge prescriptions or medication management in the emergency department Medications were administered in the Emergency Department. See MAR. Counseling: I had a detailed discussion with the patient and/or guardian regarding the historical points, exam findings, and any diagnostic results supporting the discharge/admit diagnosis, lab results, radiology results, the need for further work-up and treatment in the hospital. 06/06 17:15 Order name: CBC with Diff; Complete Time: 21:38 cp 06/06 21:38 Interpretation: Normal except: WBC 14.90; NEUT A 9.6. cp 06/06 17:15 Order name: CMP; Complete Time: 21:38 cp 06/06 17:15 Order name: Lipase; Complete Time: 21:38 cp 06/06 17:15 Order name: Urinalysis w/ reflexes; Complete Time: 21:38 cp 06/06 21:38 Interpretation: Normal except: [facility] Extremely Turbid; UBLD 1+; UPROT TRACE; UESTR 250; cp UWBC 10-20; URBC 5-10. 06/06 18:50 Order name: Urine Culture EDMA 06/06 21:39 Order name: Lactate w/ 2H reflex if indic. cp 06/06 21:39 Order name: Blood Culture Adult (2) cp 06/07 00:53 Order name: CBC with Automated Diff EDMS 06/07 00:53 Order name: CBC with Automated Diff EDMS 06/07 00:53 Order name: Comprehensive Metabolic Panel EDMS 06/07 00:53 Order name: Comprehensive Metabolic Panel EDMS 06/07 00:53 Order name: Protime (+INR) EDMS 06/07 00:53 Order name: Protime (+INR) EDMS 06/07 00:53 Order name: PTT, Activated Partial Thromb EDMS 06/07 00:53 Order name: PTT, Activated Partial Thromb EDMS 06/06 19:40 Order name: CT Abd/Pelvis - IV Contrast Only; Complete Time: 21:38 cp 06/06 19:46 Order name: XRAY Chest (1 view); Complete Time: 21:38 cp 06/07 00:52 Order name: CONS Physician Consult EDMS 06/06 17:15 Order name: IV Saline Lock; Complete Time: 19:48 cp 06/06 17:15 Order name: Labs collected and sent; Complete Time: 19:48 cp Administered Medications: 19:53 Drug: morphine IVP or IV 4 mg IVP once over 4 mins Route: IVP; Infused Over: 4 mins; me1 Site: right antecubital; 21:42 Follow up: Response: No adverse reaction; Pain is decreased me1 19:53 Drug: Ondansetron IVP 4 mg IVP once; over 2 minutes Route: IVP; Site: right antecubital;me1 21:42 Follow up: Response: No adverse reaction; Nausea is decreased me1 19:53 Drug: NS 0.9% IV 1000 ml IV at 1000 ml once; to be given as a bolus over 60 minutes me1 Route: IV; Rate: 1000 ml; Site: right antecubital; 21:42 Follow up: Response: No adverse reaction; IV Status: Completed infusion; IV Intake: me1 1000ml 22:37 Drug: metroNIDAZOLE IVPB 500 mg 100 ml IVPB once over 30 mins Volume: 100 ml; Route: kj2 IVPB; Infused Over: 30 mins; Site: right antecubital; 23:33 Follow up: IV Status: Completed infusion; IV Intake: 100ml kj2 23:34 Drug: Ciprofloxacin IVPB 400 mg 200 ml IVPB once over 60 mins Volume: 200 ml; Route: kj2 IVPB; Infused Over: 60 mins; Site: right antecubital; 06/07 00:39 Follow up: IV Status: Completed infusion; IV Intake: 200ml kj2 Disposition Summary: 06/06/24 21:54 Hospitalization Ordered Notes: Hospitalization Status: Inpatient Admission cp Provider: Nelson Enriquez cp [facility] cp Condition: Stable cp Problem: new cp Symptoms: have improved cp Bed/Room Type: Standard cp Room Assignment: 427(06/07/24 00:53) kl Diagnosis - Partial Small Bowel Obstruction cp Forms: - Medication Reconciliation Form cp - SBAR form cp - Leadership Thank You Letter cp Addendum: 06/10/2024 22:45 Co-signature as Attending Physician, Talat Toledo MD I agree with the assessment and c awad plan of care. Signatures: Dispatcher [employer] [facility] Cecile Solis RN RN kl Anderson, Corey, MD MD cha Williams, Irene, RN RN iw Page, Corey, PA PA Belkys Vázquez RN RN me1 Emy Gomez RN RN kj2 Corrections: (The following items were deleted from the chart) 06/06 19:46 19:46 Chest Single View+RAD.RAD.BRZ ordered. [facility] 06/07 00:53 06/06 21:54 mert stein
[2024-06-06] MEDS ORDERED: METRONIDAZOLE 500mg IVPB 500 MG/100 ML BAG IV ONE (22:25)
[2024-06-06] MEDS ORDERED: CIPROFLOXACIN 400mg IV 400 MG/200 ML BAG IV ONE (22:25)
[2024-06-07] MEDS ORDERED: ACETAMINOPHEN 500 MG TAB PO PRN (00:47)
[2024-06-07] MEDS ORDERED: MORPHINE 2 MG/ML SYR IV PRN (00:47)
[2024-06-07] MEDS ORDERED: ONDANSETRON 4 MG/2 ML VIAL IV PRN (00:47)
--- NOTE | 2024-06-07 00:53 | P.HP ---
Certification for Inpatient Patient admitted to: Inpatient With expected LOS: >2 Midnights Patient will require the following post-hospital care: None Practitioner: I am a practitioner with admitting privileges, knowledge of patient current condition, hospital course, and medical plan of care. Services: Services provided to patient in accordance with Admission requirements found in Title 42 Section 412.3 of the Code of Federal Regulations Patient History Date of Service: 06/06/24 Reason for admission: Abdominal pain History of Present Illness: patient is a very pleasant 43-year-old female here to the hospital with abdominal pain with nausea but no vomiting or diarrhea. Patient's pain was fairly severe so she came to the emergency room for further evaluation. In the ER patient's labs were unremarkable but CT imaging revealed partial small bowel obstruction. At this time, patient will be admitted to the hospital for further evaluation. Patient will be admitted for observation. As long as she is having flatus and they and was started on clear liquid diet. Surgery consulted for further workup. Allergies No Known Allergies Allergy (Unverified 12/09/16 02:29) Home Medications: Eszopiclone [Lunesta] 3 mg PO BEDTIME PRN PRN 06/07/24 Pantoprazole [Protonix Tab*] 40 mg PO DAILY 06/07/24 Semaglutide [Ozempic] 0.25 mg SQ EVERY 7TH DAY 06/07/24 - Past Medical/Surgical History Diabetic: No -: H/o GDM -: ANGY (2007) -: H/o episiotomy - Family History Father Family History: Reviewed- Non-Contributory - Social History Smoking Status: Never smoker Alcohol use: Yes CD- Drugs: No Caffeine use: Yes Review of Systems 10-point ROS is otherwise unremarkable Physical Examination - Vital Signs Temperature: 98 F Blood Pressure: 110/80 Pulse: 80 Respirations: 18 Pulse Ox (%): 96 - Physical Exam General: Alert, In no apparent distress, Oriented x3 HEENT: Atraumatic, PERRLA, Mucous membr. moist/pink, EOMI, Sclerae nonicteric Neck: Supple, 2+ carotid pulse no bruit, No LAD, Without JVD or thyroid abnormality Respiratory: Clear to auscultation bilaterally, Normal air movement Cardiovascular: Regular rate/rhythm, Normal S1 S2, No murmurs Gastrointestinal: Hypoactive, Soft and benign, Non-distended, No rebound, No guarding, Tenderness Musculoskeletal: No clubbing, No swelling, No tenderness Integumentary: No rashes Neurological: Normal gait, Normal speech, Normal strength at 5/5 x4 extr, Normal tone, Sensation intact, Cranial nerves 3-12 intact, Normal affect Lymphatics: No axilla or inguinal lymphadenopathy - Studies Laboratory Data (last 24 hrs) 06/06/24 06/06/24 19:35 19:35 WBC 14.90 H Hgb 13.6 Hct 40.4 Plt Count 331 Sodium 138 Potassium 4.0 BUN 14 Creatinine 0.67 Glucose 82 Total Bilirubin 0.5 AST 30 ALT 55 Alkaline Phosphatase 75 Lipase 26 Assessment & Plan - Problems (Diagnosis) (1) Abdominal pain Current Visit: Yes Status: Acute (2) Partial small bowel obstruction Current Visit: Yes Status: Acute (3) History of umbilical hernia Current Visit: Yes Status: Acute (4) History of cholecystectomy Current Visit: Yes Status: Acute - Plan 1. Abdominal pain was secondary sparse a small-bowel obstruction; will keep patient NPO for now and will reassess abdominal symptoms. If patient having flatus will start on clear liquid diet. General surgery was consulted. Continue with monitoring abdominal symptoms. NPO for now and advance diet in a.m. if flatus 2. History of cholecystectomy and umbilical hernia; monitor for adhesions with partial small-bowel obstruction as well as strangulated hernia. Currently no evidence of significant small-bowel obstruction or strangulated hernia. Will continue with surgery evaluation outpatient follow-up 3. Gi DVT prophylaxis Discharge Plan: Home Plan to discharge in: 24 Hours - Advance Directives Does patient have a Living Will: No Does patient have a Durable POA for Healthcare: No - Code Status/Comfort Care Code Status Assessed: Yes Code Status: Full Code Critical Care: No Time Spent Managing PTS Care (In Minutes): 45
[2024-06-07] MEDS ORDERED: NA CHLORIDE 0.9% 1,000 ML IV SCH (01:00)
[2024-06-07] MEDS ORDERED: PIPER TAZO 3.375 GM in NA CHLORIDE 0.9% 100 ML IV ONE (01:45)
[2024-06-07 02:26] VITALS: O2SAT 97; BMI 34.1
[2024-06-07] MEDS: PIPER TAZO 3.375 GM in NA CHLORIDE 0.9% 100 ML IV SCH (08:59)
[2024-06-07] MEDS ORDERED: HOME MED 1 EA UNK (Eszopiclone [Lunesta] 3 MG Tablet) PO PRN (09:50)
[2024-06-07] MEDS ORDERED: ESZOPICLONE 1 MG TAB PO PRN (09:56)
--- NOTE | 2024-06-07 10:43 | P.PN ---
Date of Service: 06/07/24 Subjective patient's clinical symptoms are stable. Pain is improved. Await for surgery evaluation. Possible discharge home later today or in a.m.. Physical Examination - Vital Signs Reviewed - Physical Exam General: Alert, In no apparent distress, Oriented x3 Respiratory: Clear to auscultation bilaterally, Normal air movement Cardiovascular: Regular rate/rhythm, Normal S1 S2, No murmurs Gastrointestinal: Hypoactive, Soft and benign, Non-distended, No rebound, No guarding, Tenderness Musculoskeletal: No clubbing, No swelling, No tenderness Integumentary: No rashes Neurological: no focal deficits Assessment & Plan - Problems (Diagnosis) (1) Abdominal pain Current Visit: Yes Status: Acute (2) Partial small bowel obstruction Current Visit: Yes Status: Acute (3) History of umbilical hernia Current Visit: Yes Status: Acute (4) History of cholecystectomy Current Visit: Yes Status: Acute - Plan Continue with plan of care as mentioned below: 1. Abdominal pain was secondary sparse a small-bowel obstruction; will keep patient NPO for now and will reassess abdominal symptoms. If patient having flatus will start on clear liquid diet. General surgery was consulted. Continue with monitoring abdominal symptoms. NPO for now and advance diet in a.m. if flatus 2. History of cholecystectomy and umbilical hernia; monitor for adhesions with partial small-bowel obstruction as well as strangulated hernia. Currently no evidence of significant small-bowel obstruction or strangulated hernia. Will c ontinue with surgery evaluation outpatient follow-up 3. Gi DVT prophylaxis Discharge Plan: Home Plan to discharge in: 24 Hours - Advance Directives Does patient have a Living Will: No Does patient have a Durable POA for Healthcare: No - Code Status/Comfort Care Code Status Assessed: Yes Code Status: Full Code Critical Care: No Time Spent Managing PTS Care (In Minutes): 45
[2024-06-07 11:08] LABS: Absolute Eosinophils 0.3 K/uL (0-0.5); Absolute Monocytes 0.6 K/uL (0.1-1.3); Absolute Neutrophil 6.8 K/uL (1.8-8.0); Basophils % 0.5 % (0-1.3); Eosinophils % 2.4 % (0-4.4); Hemoglobin 12.6 g/dL (12.0-15.0); MCH 29.5 pg (27.0-35.0); MCV 86.8 fL (80-100); MPV 8.5 fL (7.6-11.3); Monocytes % 5.5 % (3.3-12.3); Neutrophils % 63.6 % (41.7-73.7); Nucleated Red Blood Cells % 0.1 % (0-0); Platelets 276 thou/uL (152-406); RBC Red Blood Cell Count 4.26 M/uL (3.86-4.86); Red Cell Distribution Width 13.4 % (12.1-15.2)
[2024-06-07 11:29] LABS: Anion Gap 11.9 mEq/L (5.0-15.0); Magnesium 2.1 mg/dL (1.6-2.4); Potassium 3.9 mEq/L (3.5-5.1)
[2024-06-07] MEDS: DIPHENHYDRAMINE 50 MG/ML VIAL IV ONE (21:05)
[2024-06-07 21:40] VITALS: BP 112/62; TEMP 98.1
[2024-06-08] MEDS ORDERED: PANTOPRAZOLE 40MG TABLET PO SCH (07:30)
== END 2024-06-07 22:58 | disposition home or self-care (01) ==
LOC: ER 16:00 → 4TH 06-07 00:47
PROVIDERS: ADMIT Hospitalist; ATTEND Hospitalist
DX: K56.600 Partial intestinal obstruction, unspecified as to cause (principal); R10.9 Unspecified abdominal pain; R11.0 Nausea; Z90.49 Acquired absence of other specified parts of digestive tract
CPT/HCPCS: 96365; 96367; 96361; 87040 ×2; 87088; 85025 ×2; 81001; 87086; 80048; 36415; 83735; 83605 ×2; 83690; 80053; 74177; 71045; 96375; 99285; Q9967; J1200; J2543 ×3; J2405; J0744; J7030 ×2; G0378 ×2